=== PATIENT | female | born 1945 | race Caucasian/White ===

== ENCOUNTER 2023-09-07 13:06 | Outpatient (CLI) | payer MEDICARE, MEDICAID, SELFPAY | END 2023-09-07 13:07 | disposition home or self-care (01) | LOC: CHSAUDIO 13:08 | PROVIDERS: PCP Family Medicine; Visit Provider Otolaryngology | DX: H90.3 Sensorineural hearing loss, bilateral (principal) | CPT/HCPCS: 92557; 92567 ==

== ENCOUNTER 2024-09-19 11:04 | Outpatient (NON) | payer MEDICARE, SELFPAY ==
[2024-09-19 12:54] LABS: Alanine Aminotransferase 21 U/L (14-59); Albumin Level 3.4 g/dL (3.4-5.0); Alkaline Phosphatase 139 U/L (46-116); Anion Gap 8 mmol/L (4-12); Aspartate Amino Transferase 40 U/L (15-37); Bilirubin,Total 0.3 mg/dL (0.00-1.00); Blood Urea Nitrogen 25 mg/dL (7-18); Carbon Dioxide 30 mmol/L (21-32); Chloride 103 mmol/L (98-108); Estimated Glomerular Filt Rate 33; Glucose 145 mg/dL (70-99); Osmolality Calculated 299 mOsm/kg (285-295); Potassium 4.2 mmol/L (3.5-5.1); Sodium 141 mmol/L (136-145); Total Protein 6.8 g/dL (6.4-8.2)
[2024-09-19 12:56] LABS: Basophils Percent Auto 1.5 % (0.0-1.0); Eosinophils Absolute Auto 0.33 K/mm3 (0.02-0.50); Eosinophils Percent Auto 4.9 % (1.0-6.0); Hematocrit 32.7 % (35.0-42.0); Hemoglobin 9.7 g/dL (11.7-13.8); Immature Granulocyte Absolute 0.04 K/mm3 (0.00-0.00); Immature Granulocyte Percent A 0.6 % (0.0-0.0); Lymphocytes Absolute Auto 1.04 K/mm3 (1.10-4.50); Lymphocytes Percent Auto 15.4 % (18.0-42.0); Mean Corpuscular HGB Conc 29.7 g/dL (32-36); Mean Corpuscular Volume 84.3 fL (78.0-102.0); Mean Platelet Volume 12.1 fl (9.2-11.8); Monocytes Absolute Auto 0.59 K/mm3 (0.10-0.90); Monocytes Percent Auto 8.8 % (2.0-11.0); Neutrophils Absolute Auto 4.64 K/mm3 (1.70-7.20); Neutrophils Percent Auto 68.8 % (50.0-70.0); Platelet Count Result 304 K/mm3 (150-420); Red Blood Count 3.88 M/mm3 (4.20-5.40); Red Cell Distribution Width 15.1 % (11.6-14.4); White Blood Count 6.7 K/mm3 (4.8-10.8)
== END 2024-09-19 11:05 | disposition home or self-care (01) ==
LOC: CHSLAB 11:10
PROVIDERS: PCP Family Medicine; Visit Provider Family Medicine
DX: D64.9 Anemia, unspecified (principal); I50.9 Heart failure, unspecified; E11.9 Type 2 diabetes mellitus without complications
CPT/HCPCS: 80053; 85025

== ENCOUNTER 2024-10-04 11:14 | Outpatient (NON) | payer MEDICARE, SELFPAY ==
[2024-10-04 11:37] LABS: Basophils Absolute Auto 0.09 K/mm3 (0.00-0.10); Basophils Percent Auto 1.3 % (0.0-1.0); Eosinophils Absolute Auto 0.25 K/mm3 (0.02-0.50); Eosinophils Percent Auto 3.5 % (1.0-6.0); Hematocrit 32.9 % (35.0-42.0); Hemoglobin 9.9 g/dL (11.7-13.8); Immature Granulocyte Absolute 0.03 K/mm3 (0.00-0.00); Immature Granulocyte Percent A 0.4 % (0.0-0.0); Lymphocytes Absolute Auto 1.19 K/mm3 (1.10-4.50); Lymphocytes Percent Auto 16.7 % (18.0-42.0); Mean Corpuscular HGB Conc 30.1 g/dL (32-36); Mean Corpuscular Hemoglobin 24.3 pg (27.0-31.0); Mean Corpuscular Volume 80.8 fL (78.0-102.0); Mean Platelet Volume 11.8 fl (9.2-11.8); Monocytes Percent Auto 9.8 % (2.0-11.0); Neutrophils Absolute Auto 4.86 K/mm3 (1.70-7.20); Neutrophils Percent Auto 68.3 % (50.0-70.0); Platelet Count Result 313 K/mm3 (150-420); Red Blood Count 4.07 M/mm3 (4.20-5.40); Red Cell Distribution Width 14.9 % (11.6-14.4); White Blood Count 7.1 K/mm3 (4.8-10.8)
== END 2024-10-04 11:15 | disposition home or self-care (01) ==
LOC: CHSLAB 11:18
PROVIDERS: PCP Family Medicine; Visit Provider Family Medicine
DX: D64.9 Anemia, unspecified (principal)
CPT/HCPCS: 36415; 85025

== ENCOUNTER 2024-10-21 16:19 | Outpatient (NON) | payer MEDICARE, SELFPAY ==
[2024-10-21 16:35] LABS: Basophils Absolute Auto 0.08 K/mm3 (0.00-0.10); Basophils Percent Auto 1.3 % (0.0-1.0); Eosinophils Absolute Auto 0.26 K/mm3 (0.02-0.50); Eosinophils Percent Auto 4.2 % (1.0-6.0); Hematocrit 34.5 % (35.0-42.0); Hemoglobin 9.9 g/dL (11.7-13.8); Immature Granulocyte Absolute 0.05 K/mm3 (0.00-0.00); Immature Granulocyte Percent A 0.8 % (0.0-0.0); Lymphocytes Absolute Auto 0.85 K/mm3 (1.10-4.50); Lymphocytes Percent Auto 13.7 % (18.0-42.0); Mean Corpuscular HGB Conc 28.7 g/dL (32-36); Mean Corpuscular Hemoglobin 23.8 pg (27.0-31.0); Mean Corpuscular Volume 82.9 fL (78.0-102.0); Mean Platelet Volume 12.6 fl (9.2-11.8); Monocytes Absolute Auto 0.54 K/mm3 (0.10-0.90); Monocytes Percent Auto 8.7 % (2.0-11.0); Neutrophils Absolute Auto 4.43 K/mm3 (1.70-7.20); Neutrophils Percent Auto 71.3 % (50.0-70.0); Platelet Count Result 280 K/mm3 (150-420); Red Blood Count 4.16 M/mm3 (4.20-5.40); Red Cell Distribution Width 15.7 % (11.6-14.4); White Blood Count 6.2 K/mm3 (4.8-10.8)
== END 2024-10-21 16:20 | disposition home or self-care (01) ==
LOC: CHSLAB 16:21
PROVIDERS: PCP Family Medicine; Visit Provider Family Medicine
DX: D64.9 Anemia, unspecified (principal)
CPT/HCPCS: 85025

== ENCOUNTER 2024-12-19 14:22 | Outpatient (NON) | payer MEDICARE, SELFPAY ==
[2024-12-19 14:29] LABS: Basophils Absolute Auto 0.07 K/mm3 (0.00-0.10); Eosinophils Absolute Auto 0.08 K/mm3 (0.02-0.50); Eosinophils Percent Auto 1.2 % (1.0-6.0); Hematocrit 24.3 % (35.0-42.0); Immature Granulocyte Absolute 0.04 K/mm3 (0.00-0.00); Immature Granulocyte Percent A 0.6 % (0.0-0.0); Lymphocytes Absolute Auto 0.75 K/mm3 (1.10-4.50); Mean Corpuscular HGB Conc 27.2 g/dL (32-36); Mean Corpuscular Hemoglobin 22.3 pg (27.0-31.0); Mean Corpuscular Volume 82.1 fL (78.0-102.0); Mean Platelet Volume 11.8 fl (9.2-11.8); Monocytes Absolute Auto 0.58 K/mm3 (0.10-0.90); Monocytes Percent Auto 8.5 % (2.0-11.0); Neutrophils Absolute Auto 5.31 K/mm3 (1.70-7.20); Neutrophils Percent Auto 77.7 % (50.0-70.0); Nucleated Red Blood Cells Absolute Auto 0.02 K/mm3 (0.00-0.00); Nucleated Red Blood Cells Perc 0.3 % (0-0.0); Platelet Count Result 291 K/mm3 (150-420); Red Blood Count 2.96 M/mm3 (4.20-5.40); Red Cell Distribution Width 16.1 % (11.6-14.4); White Blood Count 6.8 K/mm3 (4.8-10.8)
[2024-12-19 14:33] LABS: Hemoglobin 6.6 g/dL (11.7-13.8)
[2024-12-19 14:49] LABS: Hemoglobin A1C 8.1 % (<5.7)
[2024-12-19 15:02] LABS: Thyroid Stimulating Hormone 4.39 uIU/mL (0.36-3.74)
== END 2024-12-19 14:23 | disposition home or self-care (01) ==
LOC: CHSLAB 14:24
PROVIDERS: PCP Family Medicine; Visit Provider Family Medicine
DX: D64.9 Anemia, unspecified (principal); E11.9 Type 2 diabetes mellitus without complications; E03.9 Hypothyroidism, unspecified
CPT/HCPCS: 36415; 83036; 84443; 85025

== ENCOUNTER 2024-12-26 12:13 | Outpatient (NON) | payer MEDICARE, SELFPAY ==
[2024-12-26 12:22] LABS: Basophils Absolute Auto 0.07 K/mm3 (0.00-0.10); Basophils Percent Auto 1.1 % (0.0-1.0); Eosinophils Absolute Auto 0.21 K/mm3 (0.02-0.50); Eosinophils Percent Auto 3.2 % (1.0-6.0); Hemoglobin 9.4 g/dL (11.7-13.8); Immature Granulocyte Absolute 0.04 K/mm3 (0.00-0.00); Immature Granulocyte Percent A 0.6 % (0.0-0.0); Lymphocytes Absolute Auto 0.92 K/mm3 (1.10-4.50); Lymphocytes Percent Auto 13.8 % (18.0-42.0); Mean Corpuscular HGB Conc 27.6 g/dL (32-36); Mean Corpuscular Hemoglobin 23.7 pg (27.0-31.0); Mean Corpuscular Volume 85.6 fL (78.0-102.0); Mean Platelet Volume 11.2 fl (9.2-11.8); Monocytes Absolute Auto 0.59 K/mm3 (0.10-0.90); Monocytes Percent Auto 8.9 % (2.0-11.0); Neutrophils Absolute Auto 4.83 K/mm3 (1.70-7.20); Neutrophils Percent Auto 72.4 % (50.0-70.0); Platelet Count Result 281 K/mm3 (150-420); Red Blood Count 3.97 M/mm3 (4.20-5.40); White Blood Count 6.7 K/mm3 (4.8-10.8)
[2024-12-26 12:48] LABS: Ferritin 91 ng/mL (8-252); Iron 29 ug/dL (50-170); Percent Iron Saturation 6 % (12-57)
[2024-12-27 12:45] LABS: Anion Gap 12 mmol/L (4-12); Blood Urea Nitrogen 24 mg/dL (7-18); Calcium 8.9 mg/dL (8.5-10.1); Carbon Dioxide 27 mmol/L (21-32); Chloride 105 mmol/L (98-108); Estimated Glomerular Filt Rate 31; Glucose 176 mg/dL (70-99); Osmolality Calculated 306 mOsm/kg (285-295); Potassium 4.1 mmol/L (3.5-5.1); Sodium 144 mmol/L (136-145)
== END 2024-12-26 12:14 | disposition home or self-care (01) ==
LOC: CHSLAB 12:15
PROVIDERS: PCP Family Medicine; Visit Provider Family Medicine
DX: D64.9 Anemia, unspecified (principal)
CPT/HCPCS: 36415; 80048; 82728; 83540; 83550; 85025

== ENCOUNTER 2025-01-04 12:48 | Outpatient (NON) | payer MEDICARE, SELFPAY ==
[2025-01-04 12:55] LABS: Basophils Percent Auto 1.8 % (0.0-1.0); Eosinophils Percent Auto 1.8 % (1.0-6.0); Hematocrit 34.5 % (35.0-42.0); Hemoglobin 9.7 g/dL (11.7-13.8); Immature Granulocyte Absolute 0.01 K/mm3 (0.00-0.00); Immature Granulocyte Percent A 0.2 % (0.0-0.0); Lymphocytes Percent Auto 14.4 % (18.0-42.0); Mean Corpuscular HGB Conc 28.1 g/dL (32-36); Mean Corpuscular Hemoglobin 24.3 pg (27.0-31.0); Mean Corpuscular Volume 86.5 fL (78.0-102.0); Mean Platelet Volume 11.9 fl (9.2-11.8); Monocytes Absolute Auto 0.52 K/mm3 (0.10-0.90); Monocytes Percent Auto 9.4 % (2.0-11.0); Neutrophils Absolute Auto 4.01 K/mm3 (1.70-7.20); Neutrophils Percent Auto 72.4 % (50.0-70.0); Platelet Count Result 282 K/mm3 (150-420); Red Blood Count 3.99 M/mm3 (4.20-5.40); Red Cell Distribution Width 18.8 % (11.6-14.4); White Blood Count 5.5 K/mm3 (4.8-10.8)
--- OUTSIDE RECORDS SUMMARY | 2025-01-04 14:14 | XMS_ITS | Encounter Summary ---
Author Organization [facility] [employer] [facility] Address [address] [place] [address] Phone Care Team Providers Care Sales And Marketing Assistant Name Role Phone Hema Castaneda MD Unavailable [phone] Colleen Bain MD Unavailable [phone] Rosette Espinoza MD Unavailable [phone] Lopez Pool MD Primary Care Provider [phone] Jacqueline Schaeffer RN Unavailable Unavailable Jenni Hartley RN Unavailable Unavailable Anat Hutchison Unavailable Unavailable Encounter Details Date Type Department Care Team (Latest Contact Info) Description 12/09/2022 Orders Only [facility] Scanning, Provider Social History Tobacco Use Types Packs/Day Years Used Date Smoking Tobacco: Former Cigarettes Q uit: 2006 Smokeless Tobacco: Never Alcohol Use Standard Drinks/Week Comments No 0 (1 standard drink = 0.6 oz pur e alcohol) minimal Social Connection and Isolat ion Panel [NHANES] Answer Date Recorded In a typical week, how many times do you talk on the phone with family, friends, or neighbors? More than three times a week 03/14/2022 How often do you get togethe r with friends or relatives? More than three times a week 03/14/2022 How often do you attend chur ch or adventist services? Never 03/14/2022 Do you belong to any clubs o r organizations such as shinto groups, unions, fraternal or athletic groups, or school groups? No 03/14/2022 How often do you attend meet ings of the clubs or organizations you belong to? Never 03/14/2022 Are you , , di vorced, , never , or living with a partner? 03/14/2022 AUDIT-C Answer Date Recorded Q1: How often do you have a drink containing alcohol? Never 03/18/2022 Q2: How many drinks containi ng alcohol do you have on a typical day when you are drinking? Patient does not drink Q3: How often do you have si x or more drinks on one occasion? Never 03/18/2022 Overall Financial Resource Strain (CARDIA) Answe r Date Recorded How hard is it for you to pa y for the very basics like food, housing, medical care, and heating? Not very hard 03/14/2022 PHQ-2 Answer Date Recorded PHQ-2 Total Score 1 03/14/2022 Hunger Vital Sign Answer Date Recorded Within the past 12 months, y ou worried that your food would run out before you got the money to buy more. Never true 03/14/20 Within the past 12 months, t he food you bought just didn't last and you didn't have money to get more. Never true 03/14/2022 PRAPARE - Transportation Answer Date Re corded In the past 12 months, has l ack of transportation kept you from medical appointments or from getting medications? No 02/17 In the past 12 months, has l ack of transportation kept you from meetings, work, or from getting things needed for daily living? No 03/14/2022 Housing Stability Vital Sign Answer Sebas e Recorded In the last 12 months, was t here a time when you were not able to pay the mortgage or rent on time? No 03/14/2022 In the last 12 months, how many places have you lived? 1 03/14/2022 In the last 12 months, was t here a time when you did not have a steady place to sleep or slept in a half-way (including now)? 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 Not on file Not on file Not on file documented as of this encounter Plan of Treatment Upcoming Encounters Date Type Department Care Team (Latest Contact Info) Description 02/10/2025 7:30 AM CDT Hospital Encounter [facility] [address] [place] [address] Fred SullivanInstitutional Research Coordinator, [address] [place] [phone] Patricia Smith MD [address] [place] [address] [place] [address] [phone] Atrial fibrillation, unspecified type (HCC) 02/10/2025 7:30 AM CDT - 02/10/2025 8:05 AM CDT Surgery [facility] [address] [phone] Patricia Smith MD [address] [place] [address] [place] [address] [phone] CARDIOVERSION documented as of this encounter Procedures Procedure Name Priority Date/Time Associated Diagnosis Comments PULMONARY - RESULT SCAN 12/09/2022 documented in this encounter Results * PULMONARY - RESULT SCAN (12/09/2022) Anatomical Region Laterality Modality Other us Provider Scanning Final Result documented in this encounter Visit Diagnoses Not on filedocumented in this encounter Care Teams Sales And Marketing Assistant Relationship Specialty Start Date End Date Lopez Pool MD PCP - General Family Medicine 03/18/22 Hema Castaneda MD Consulting Physician Cardiology 01/11/19 Colleen Bain MD Referring Physician Endocrinology Diabetes & Metabolism 04/07/19 Rosette Espinoza MD Referring Physician Cardiology 04/07/19 Jacqueline Schaeffer, finisher hot strip Failure Coordinator Cardiology 07/13/24 Jenni Hartley, RN Registered Nurse 07/13/24 08/01/24 Anat Hutchison 07/13/24 documented as of this encounter
--- OUTSIDE RECORDS SUMMARY | 2025-01-04 14:14 | XMS_ITS | Referral Summary ---
Author Organization [facility] Address [address] [place] [address] Care Team Providers Care Bonderizer Name Role Phone Hema Castaneda MD Unavailable Colleen Bain MD Unavailable [phone] Дмитрий Torres MD Unavailable [phone] Lopez Pool MD Primary Care Provider [phone] Jacqueline Schaeffer RN Unavailable Unavailable Anat Hutchison Unavailable Unavailable Encounters Date Type Department Care Team Description 12/21/2024 Telephone [facility] [address] [facility] 8th [place] [address] [place] [address] Дмитрий Torres MD appt 12/21/2024 Telephone [facility] [address] [facility] 8th [place] [address] [place] [address] Дмитрий Torres MD 12/21/2024 Telephone [facility] [address] [facility] 8th [place] [address] [place] [phone] Дмитрий Torres MD 12/21/2024 Telephone [facility] [address] [facility] [address] [phone] [place] [address] Kiko Omalley 12/19/2024 Orders Only [facility] [address] [facility] [address] [place] [address] Дмитрий Torres MD 12/19/2024 Telephone [facility] [address] [place] [address] [address] [place] [phone] [place] [address] Kiko Omalley 12/19/2024 Orders Only [facility] [address] [place] [address] [place], [place] [address]op -[address] [place] [address] Jacqueline Schaeffer RN Chronic diastolic congestive heart failure (HCC) (Primary Dx) 12/16/2024 Anticoagulation Telephone Call [facility] [address] [place] [address] [place] [address] Jacqueline Schaeffer RN Atrial fibrillation, unspecified type (HCC) (Primary Dx); 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 12/16/2024 Telephone [facility] [address] [facility] 8th [place] [address] [place] [address] Vijay Wheeler 12/16/2024 Telephone [facility] [address] [place] [address] [address] [facility] [place] [address] [place] [address] Jacqueline Schaeffer RN 12/16/2024 Orders Only [facility] [address] [place] [address] [place] [address] Deanne Peralta RN 12/16/2024 Results Follow-Up [facility] [address] [facility] [address] [place] [address] Дмитрий Torres MD 12/16/2024 6:50 AM TRY ON BASTER - 12/16/2024 11:59 PM TRY ON BASTER Hospital Encounter [facility] [address] [facility] 8th [place] [phone] Atrial flutter, unspecified type (HCC) Discharge Disposition: Discharge to home or self care 12/14/2024 Telephone [facility] [address] [facility] [address] 62-49-615 [place] [address] Jacqueline Schaeffer RN 12/12/2024 Telephone [facility] [address] [facility] [address] [phone] [place] [address] Alison Nye 12/12/2024 Telephone [facility] [address] [facility] 8th [place] [address] [place] [address] Дмитрий Torres MD 12/09/2024 Anticoagulation Telephone Call [facility] [address] [facility] [address] 32-04-022 [place] [address] Jenni Hartley RN Atrial fibrillation, unspecified type (HCC) (Primary Dx); [facility] current use of anticoagulant therapy 12/07/2024 Telephone [facility] [address] [facility] 8th [place] [address] [place] [address] Nanette Bingham 12/06/2024 10:12 AM TRY ON BASTER - 12/06/2024 11:59 PM TRY ON BASTER Hospital Encounter [facility] [address] [place] [address] SOB (shortness of breath) Discharge Disposition: Discharge to home or self care 12/06/2024 10:00 AM TRY ON BASTER Office Visit [facility] [address] [facility] 8th [place] [address] [place] [address] Kiesha Varela MD SOB (shortness of breath) (Primary Dx); Chronic obstructive pulmonary disease, unspecified COPD type (HCC) 12/06/2024 8:54 AM TRY ON BASTER - 12/06/2024 11:59 PM TRY ON BASTER Hospital Encounter [facility] [address] [facility] [address] [place] [phone] Chronic obstructive pulmonary disease, unspecified COPD type (HCC) Discharge Disposition: Discharge to home or self care 12/02/2024 Telephone [facility] [address] [place] [address] [address] [phone] [place] [address] Kathryn Novak 12/02/[address] [facility] [address] [place] [address] [address] [phone] [place] [address] Jenni Hartley RN Atrial fibrillation, unspecified type (HCC) (Primary Dx); [facility] current use of anticoagulant therapy 12/02/2024 8:45 AM TRY ON BASTER Office Visit [facility] [address] [place] [address] 8th [place] [address] [place] [address] Дмитрий Torres MD Atrial flutter, unspecified type (HCC) (Primary Dx); Pacemaker 12/02/2024 8:15 AM TRY ON BASTER Ancillary Procedure [facility] [address] [place] [address] 8th [place] [address] [place] [phone] Sinus bradycardia (Primary Dx); Fitting or adjustment of cardiac pacemaker; Atrial fibrillation, unspecified type (HCC); Atrial flutter, unspecified type (HCC); Cardiomyopathy, idiopathic (HCC) 11/14/[address] 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 Active calcium carbonate-vitamin D3 1500 mg (600 mg elemental) -200 units per tablet daily. Act diana ferrous sulfate 325 mg (65 mg of elemental iron) tabletIndications: Iron Deficiency Anemia 2 times daily. Activ e oxygenIndications: Dyspnea Administer 2 L/min into each nostril nightly Active triamcinolone (KENALOG) 0.1 % cream 10/02/20 21 Active albuterol HFA (ProAir HFA) 90 mcg/actuation inhaler Inhale 2 puffs every 4 (four) hours as needed for wheezing 8.5 g 03/05/20 22 Active sertraline (ZOLOFT) 100 mg tablet Take 1 tablet (100 mg total) by mouth daily HALF TABLET FOR THE FIRST 6 DAYS 30 tablet 03/05/20 22 Active cholecalciferol (VITAMIN D-3) 2000 unit tablet Take 0.5 tablets (1,000 Units total) by mouth daily 02/21/20 22 Active magnesium oxide 400 mg magnesium capsule Take 2 tablets by mouth daily 02/18/20 22 Active lancets [facility] Use lancet to check blood sugar 3 x a day : DX: E11.65, Type 2 DM requiring insulin 100 each 3 03/24/20 22 Active nystatin powder 09/25/20 22 Active pen needle, diabetic (TRUEplus Pen Needle) 32 gauge x needle Use with insulin injections twice daily 200 each 3 06/01/20 23 Active glucagon (Gvoke HypoPen 2-Pack) 1 mg/0.2 mL auto-injector Use as needed for treatment of hypoglycemia 0.4 mL 3 07/29/20 23 Active Trelegy Ellipta 200-62.5-25 mcg inhaler Inhale 1 puff daily 09/09/20 23 Active levothyroxine (SYNTHROID) 137 mcg tablet Take 1 tablet (137 mcg total) by mouth carousel attendant before breakfast 08/20/[address] (PROTONIX) 40 mg EC tablet Take 1 tablet (40 mg total) by mouth daily 05/13/20 24 Active metFORMIN (GLUCOPHAGE) 500 mg tablet Take 1 tablet (500 mg total) by mouth 2 (two) times a day with meals 04/26/20 24 Active BASAGLAR 100 unit/mL (3 mL) pen for injection every evening 55 units once a day 05/13/20 24 Active fluticasone propionate (FLONASE) 50 mcg/actuation nasal spray 05/23/20 24 Active cetirizine (ZyrTEC) 10 mg tablet Take 1 tablet (10 mg total) by mouth daily Active warfarin (COUMADIN) 2 mg tablet TRANSFERRED: 04/17/23 -READ RX NOTE (ALT-N)- TAKE 3 AND 1/2 TABLETS BY MOUTH 315 tablet 3 08/08/20 24 Active spironolactone (ALDACTONE) 25 mg tablet TAKE ONE TABLET BY MOUTH DAILY 90 tablet 3 08/19/20 24 Active furosemide (LASIX) 40 mg tablet TAKE ONE TABLET BY MOUTH DAILY 90 tablet 3 10/14/20 24 Active blood glucose diagnostic (Contour Next Test Strips) stripIndications:U ncontrolled type 2 diabetes mellitus with hyperglycemia (HCC) TEST 3 TIMES DAILY BACKUP FOR THE DEXCOM CGM (E11.65) 300 each 11/18/19 25 Active amiodarone (PACERONE) 200 mg tablet TAKE 1 TABLET (200 MG TOTAL) BY MOUTH DAILY *NEEDS EKG AND LABS (TO CHECK LIVER ENZYMES AND THYROID) EVERY 6 MONTHS PRIOR TO 30 tablet 11/25/19 25 Active sucralfate (CARAFATE) 1 gram tablet Take 1 tablet (1 g total) by mouth 4 (four) times a day 11/25/19 25 Active ondansetron ODT (ZOFRAN-ODT) 4 mg disintegrating tablet Take 1 tablet (4 mg total) by mouth every 8 (eight) hours as needed for nausea 10/21/19 25 Active traMADoL (ULTRAM) 50 mg tablet Take 1 tablet (50 mg total) by mouth every 6 (six) hours as needed 09/19/20 24 Active Active Problems Problem Noted Date Diagnosed Date [facility] current use of amiodarone 07/22/2024 Acquired hypothyroidism 12/08/2022 Assessment & Plan (10/01/2023 7:53 PM TRY ON BASTER): Symptomatically euthyroid but recent TSH elevated. Has scheduled repeat FT4 and TSH per Dr. Torres. Assessment & Plan (06/15/2023 3:54 PM CDT): -Labs on 05/29/2023 showed TSH of 16.9 -Levothyroxine dose was increased to 100 mcg daily Assessment & Plan (03/09/2023 8:23 AM CDT): -Labs dated 10/03/22: FT4 was 0.49, TSH 45.59 -Levothyroxine 75 mcg daily was prescribed Assessment & Plan (12/09/2022 9:54 AM TRY ON BASTER): -Labs dated 10/03/22: FT4 was 0.49, TSH 45.59 -Levothyroxine 75 mcg daily was prescribed -She has orders for repeat labs per PCP Adjustment and management of cardiac pacemaker 0 05/01/2022 Acute on chronic hypoxemic respiratory failure 0 03/04/2022 Assessment & Plan (03/05/2022 4:47 PM CDT): #Influenza A Patient presented to OSH for dyspnea, increased oxygen req to 6L (home 2L at night, 1L during day). RVP 02/22 remarkable for Influenza A. CXR at OSH read as bibasilar ground glass opacities thought to be atelectasis vs infiltrates. Treated as PNA, given vanc and zosyn for at least 3 days. Blood cx's neg x 2, 1 staph epi. Also seems to be some concern for HF exacerbation as she was also given lasix 20 IV, increased to 40 IV. Most likely symptoms in setting of influenza infection. Low suspicion for HF exacerbation as weight below baseline, and appears dry on exam. Low suspicion for COPD exacerbation. - cont supportive care with tesjonatan victoria - pt is outside the window for tamiflu - remains on 2LO2, plan for home O2 eval prior to dc MARI on CKD 03/02/2022 Assessment & Plan (03/04/2022 5:49 PM CDT): Presented to OSH with Cr 1.07, max on 02/25 with Cr 3.61 (BUN 30). Cr b/l 1.1 - 1.2. C/f intrarenal vs prerenal iso supratheraputic vanc for several days and several days of IV lasix. OSH CT abd/pel urogram with bilateral renal cysts, no metastatic disease. US retroperitoneal with r kidney 11.6 x 6.9x 5.4, normal echogenicity, no hydronephrosis, L kidney 12.2 x 6.3x 5.1 with normal cortical echogenicity, bilateral simple renal cysts. UA bland. S/p 1500 mL gentle IVF on admission - strict I/Os q4 - renally dose medications, avoid nephrotoxins, holding home lisinopril - Cr remains stable, pt with good UOP - Encourage PO intake Nocturnal hypoxemia 04/30/2021 Assessment & Plan (03/04/2022 5:52 PM CDT): Previously on CPAP, but no evidence of NATI on last PSG in 2018. Follows with Dr. Varela - on 2L NC at night baseline NATI (obstructive sleep apnea) 11/02/2020 Assessment & Plan (03/17/2022 10:47 AM CDT): -follows with Pulm Dr. Varela -as per Pulm notes on 04/30/2021: Previously on CPAP; no evidence of NATI on last PSG in 2018. -patient continues with nocturnal desats -Daughter would like Ambulatory referral for Sleep Medicine at discharge, thinks her study needs to be repeated. Assessment & Plan (03/16/2022 8:24 AM CDT): -follows with Pulm Dr. Varela -as per Pulm notes on 04/30/2021: Previously on CPAP; no evidence of NATI on last PSG in 2018. -patient continues with nocturnal desats -Daughter would like Ambulatory referral for Sleep Medicine at discharge, thinks her study needs to be repeated. Assessment & Plan (03/15/2022 12:37 PM CDT): -follows with Pulm Dr. Varela -as per Pulm notes on 04/30/2021: Previously on CPAP; no evidence of NATI on last PSG in 2018. -patient continues with nocturnal desats -Daughter would like Ambulatory referral for Sleep Medicine at discharge, thinks her study needs to be repeated. Type 2 diabetes mellitus with other specified co mplication 12/19/2019 Assessment & Plan (10/01/2023 7:56 PM TRY ON BASTER): Glucoses high but needs reliable test strips. Also awaiting Dexcom G6 supplies. For now, will increase insulin dosing within a good margin of safety. Assessment & Plan (06/16/2023 2:49 PM CDT): -Currently prescribed insulin -metformin has been discontinued due to deterioration of renal function -Dexcom download indicates hyperglycemia. Will increase 70/30 insulin to 18 units twice a day. She is to call with any lows. Will follow with her response. -Advised to call if blood sugars are persistently greater than 200 mg/dl. -Discussed diet and activity modifications. -Advised to call with any concerns/complaints regarding glucose readings -Eye exam is up to date -Following with podiatry Assessment & Plan (03/10/2023 9:05 AM CDT): -Currently prescribed insulin -metformin has been discontinued due to deterioration of renal function -A1C on 12/09/22 was 7.1% -Dexcom download indicates time in range 42%. 90 day GMI is 7.8%. Given her other health issues and advanced age, tight control is not indicated. She is most comfortable with blood sugars between 160-200 mg/dl, and I agree with this. For now, will continue same insulin doses Advised to call if blood sugars are persistently greater than 200 mg/dl. -Discussed diet and activity modifications. -Advised to call with any concerns/complaints regarding glucose readings -Eye exam is up to date -Following with podiatry Assessment & Plan (12/09/2022 9:54 AM TRY ON BASTER): -Currently prescribed insulin -metformin has been discontinued due to deterioration of renal function -A1C on 12/09/22 was 7.1% -Dexcom download indicates some post-meal variability, but relatively stable glucose pattern. Will continue same insulin dosing for now. -Discussed diet and activity modifications. -Advised to call with any concerns/complaints regarding glucose readings -Eye exam is up to date -Following with podiatry Assessment & Plan (07/16/2022 11:34 AM CDT): -Currently prescribed insulin -metformin has been discontinued due to deterioration of renal function -A1C on 06/24/22 was 7.6% -Dexcom download indicates a persistent pattern of hyperglycemia. Will increase 70/30 insulin to 15 units bid. Will continue Reli On Regular correction scale of 1:50>200 at lunch. This is a total of 3 injections daily. Will message in one week to review Dexcom data and will adjust insulin from there. (Addendum per KWAME Rogel on 07/16/22) -Discussed diet and activity modifications. -Advised to call with any concerns/complaints regarding glucose readings -Eye exam is up to date -Following with podiatry Assessment & Plan (03/24/2022 4:41 PM CDT): -Currently prescribed insulin -metformin has been discontinued due to deterioration of renal function -A1C on 03/02/22 was 9.1% -this A1c was taken during hospitalization after receiving high-dose steroids. -Dexcom download indicates a relatively flat glucose pattern overnight. She has a rise in glucose after she eats her 1st meal of the day, around 10:00 a.m. and returning to baseline at approximately 2:00 p.m... She has another spike in glucose after she eats her 2nd meal of the day around 3:00 p.m. and her glucose remains elevated. For now, will increase her morning dose of Novolin 70/30 insulin from 20-22 units, and continue 20 units in the p.m. to prevent any nocturnal hypoglycemia. Anticipate better mealtime coverage when she transitions to NovoLog 70/30 insulin. She is to message me in 1-2 weeks to re-evaluate her Dexcom data and will make further adjustments at that time if indicated. -prescription sent for back see me -Discussed diet and activity modifications. -Advised to call with any concerns/complaints regarding glucose readings -Eye exam is up to date -Following with podiatry Assessment & Plan (11/15/2021 11:27 AM TRY ON BASTER): -Currently prescribed insulin and metformin -A1C recently was 6.1% per patient -She had recent lows, and stopped her insulin altogether -Will resume Reli On Novolin 70/30 insulin at 30 units bid (half of previous dose) and follow with her response. -Given her hypoglycemia unawareness, and that she meets medicare criteria, will order Daniela 2. -Discussed diet and activity modifications. -Advised to call with any concerns/complaints regarding glucose readings -Eye exam is up to date -Following with podiatry Mixed hyperlipidemia 12/19/2019 Assessment & Plan (10/01/2023 7:54 PM TRY ON BASTER): Continue statin, optimize glycemic control. Assessment & Plan (06/15/2023 3:56 PM CDT): -Lipid panel on 03/03/22: TC 108, trig 222, HDL 31, LD 33 -Will continue statin as it is being tolerated without side effects Assessment & Plan (03/09/2023 8:23 AM CDT): -Lipid panel on 03/03/22: TC 108, trig 222, HDL 31, LD 33 -Will continue statin as it is being tolerated without side effects Assessment & Plan (12/08/2022 8:55 AM TRY ON BASTER): -Lipid panel on 03/03/22: TC 108, trig 222, HDL 31, LD 33 -Will continue statin as it is being tolerated without side effects Assessment & Plan (06/22/2022 1:24 PM CDT): -Will continue statin as it is being tolerated without side effects Assessment & Plan (03/20/2022 4:04 PM CDT): -Will continue statin as it is being tolerated without side effects Assessment & Plan (11/15/2021 11:23 AM TRY ON BASTER): -Will continue statin as it is being tolerated without side effects Stage 3b chronic kidney disease 03/20/2019 Assessment & Plan (10/01/2023 7:55 PM TRY ON BASTER): Need optimal glycemic control, minimize risk of hypoglycemia. Assessment & Plan (06/15/2023 3:56 PM CDT): -CKD increases risk of hypoglycemia -Will closely monitor glucose pattern in ensure margin of safety Assessment & Plan (03/09/2023 8:23 AM CDT): -CKD increases risk of hypoglycemia -Will closely monitor glucose pattern in ensure margin of safety Assessment & Plan (12/08/2022 8:56 AM TRY ON BASTER): -CKD increases risk of hypoglycemia -Will closely monitor glucose pattern in ensure margin of safety Assessment & Plan (06/22/2022 1:26 PM CDT): -CKD increases risk of hypoglycemia -Will closely monitor glucose pattern in ensure margin of safety Assessment & Plan (03/24/2022 4:41 PM CDT): -CKD increases risk of hypoglycemia -Will closely monitor glucose pattern in ensure margin of safety Assessment & Plan (03/17/2022 10:47 AM CDT): Cr on admission 2.24, down from earlier this month were Cr was in the 3s. Her baseline has been around 1.2 - received lasix in the ED. - repeat BMP with Cr ~2.0, continue to monitor Assessment & Plan (03/16/2022 8:23 AM CDT): Cr on admission 2.24, down from earlier this month were Cr was in the 3s. Her baseline has been around 1.2 - received lasix in the ED. - repeat BMP with Cr ~2.0, continue to monitor Assessment & Plan (03/15/2022 8:32 AM CDT): Cr on admission 2.24, down from earlier this month were Cr was in the 3s. Her baseline has been around 1.2 - received lasix in the ED. - repeat BMP today to monitor. Assessment & Plan (03/14/2022 3:38 PM CDT): Cr on admission 2.24, down from earlier this month were Cr was in the 3s. Her baseline has been around 1.2 - received lasix in the ED. - repeat BMP in am to monitor. Assessment & Plan (11/11/2021 12:00 PM TRY ON BASTER): -CKD increases risk of hypoglycemia -Will closely monitor glucose pattern in ensure margin of safety -Following with nephrology Assessment & Plan (04/08/2019 7:30 AM CDT): Recent changes in her medication, but creatinine improved. It is now okay for her to restart metformin Assessment & Plan (03/20/2019 10:51 AM CDT): -continue to monitor Atrial flutter 01/21/2019 Assessment & Plan (04/08/2019 7:27 AM CDT): Recent adjustments in her medications, followed by Dr. Torres. Need to minimize risk of hypoglycemia Assessment & Plan (03/20/2019 10:49 AM CDT): Currently atrial paced and tolerating sotalol -ECG 03/19 @ 1858 QTc 444 (from 466 prior) -c/w sotalol 80 mg BID (first dose 03/18 AM) Will not increase further with eCrCL ~ 40, EKG 2 hrs post dose -c/w warfarin 6mg qd, INR goal 2-3 Pacemaker 01/21/2019 Other emphysema 01/11/2019 Second degree atrioventricular block 12/06/2018 Physical deconditioning 07/13/2018 Former cigarette smoker 07/13/2018 Class 3 severe obesity with serious comorbidity and body mass index (BMI) of 40.0 to 44.9 in adult 07/13/2018 Assessment & Plan (03/20/2019 10:50 AM CDT): Discuss nutrition Anemia 07/13/2018 Assessment & Plan (03/05/2022 4:48 PM CDT): hgb 10.9 B/l 11-12. Likely iso chronic dz Assessment & Plan (03/20/2019 10:52 AM CDT): -c/w home iron supplements Depression 07/13/2018 Assessment & Plan (03/17/2022 10:47 AM CDT): Continue Zoloft, mood stable. Assessment & Plan (03/16/2022 8:24 AM CDT): Continue Zoloft, mood stable. Assessment & Plan (03/15/2022 8:32 AM CDT): Continue Zoloft, mood stable. Assessment & Plan (03/14/2022 8:33 AM CDT): Continue Zoloft, mood stable Assessment & Plan (03/04/2022 5:53 PM CDT): - cont home zoloft Essential hypertension 07/13/2018 Assessment & Plan (06/15/2023 3:55 PM CDT): -Will continue same antihypertensive medications at this time. Assessment & Plan (03/09/2023 8:23 AM CDT): -Will continue same antihypertensive medications at this time. Assessment & Plan (12/09/2022 9:54 AM TRY ON BASTER): -BP was 128/85 -Will continue same antihypertensive medications at this time. Assessment & Plan (06/24/2022 1:32 PM CDT): -BP was 151/66 -Will continue same antihypertensive medications at this time. Assessment & Plan (03/24/2022 4:41 PM CDT): -BP was 141/71 -Will continue same antihypertensive medications at this time. Assessment & Plan (03/17/2022 10:47 AM CDT): Continue amlodipine 5mg daily. Assessment & Plan (03/16/2022 8:24 AM CDT): Continue amlodipine 5mg daily. Assessment & Plan (03/15/2022 8:32 AM CDT): Continue amlodipine 5mg daily. Assessment & Plan (03/14/2022 8:33 AM CDT): Continue amlodipine 5mg daily Assessment & Plan (03/04/2022 5:51 PM CDT): - cont home amlodpine 5, hold home lisinopril iso MARI Assessment & Plan (11/11/2021 11:59 AM TRY ON BASTER): -Will continue same antihypertensive medications at this time. Assessment & Plan (04/08/2019 7:29 AM CDT): Recent changes in medications. Defer to her Cardiology team Breast cancer ([facility]) 07/13/2018 Overview (07/13/2018): L radical mastectomy with chemo and XRT x 35 [phone]. Assessment & Plan (03/17/2022 10:47 AM CDT): Sp mastectomy - hold anastrozole inpatient, can resume on discharge. Assessment & Plan (03/16/2022 8:22 AM CDT): Sp mastectomy - hold anastrozole inpatient, can resume on discharge. Assessment & Plan (03/15/2022 8:31 AM CDT): Sp mastectomy - hold anastrozole inpatient, can resume on discharge. Assessment & Plan (03/14/2022 8:32 AM CDT): Sp mastectomy - hold anastrozole inpatient, can resume on discharge. Assessment & Plan (03/04/2022 5:54 PM CDT): Left breast CA s/p Mastectomy and chemo/rads - cont home anastrazole Assessment & Plan (03/20/2019 10:52 AM CDT): C/w home anastrozole Stroke (cerebrum) ([facility]) 07/13/2018 Overview (07/13/2018): R body weak and R facial droop, improved ASA and warfarin AFIB later Assessment & Plan (03/17/2022 10:47 AM CDT): Continue ASA, Lipitor. Cont HH at discharge. Assessment & Plan (03/16/2022 8:24 AM CDT): Continue ASA, Lipitor. Cont HH at discharge. Assessment & Plan (03/15/2022 8:32 AM CDT): Continue ASA, Lipitor. Cont HH at discharge. Assessment & Plan (03/14/2022 8:34 AM CDT): Continue ASA, Lipitor. Cont HH at discharge Assessment & Plan (03/04/2022 5:52 PM CDT): - cont home lipitor, ASA AF (atrial fibrillation) 03/24/2018 Assessment & Plan (03/04/2022 5:54 PM CDT): Currently in sinus on exam. CHADS-vasc 8. 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 Non-ischemic presumed Chronic obstructive pulmonary disease 08/28/2017 Assessment & Plan (03/17/2022 10:47 AM CDT): Continue Anoro ellipta daily - on 2L nocturnal oxygen. No oxygen needed during daytime Assessment & Plan (03/16/2022 8:23 AM CDT): Continue Anoro ellipta daily - on 2L nocturnal oxygen. No oxygen needed during daytime Assessment & Plan (03/15/2022 8:32 AM CDT): Continue Anoro ellipta daily - on 2L nocturnal oxygen. No oxygen at rest. Assessment & Plan (03/14/2022 3:38 PM CDT): Continue Anoro ellipta daily - on 2L nocturnal oxygen. No oxygen at rest. Assessment & Plan (03/05/2022 5:25 PM CDT): PFTs 04/2021 with severe obstruction. FVC 390 cc, FEV1 290cc. Follows with Dr. Varela. - home anoro, and albuterol - recently increased daytime oxygen to 1L during January hospitalization. - home O2 eval prior to discharge Assessment & Plan (03/20/2019 10:50 AM CDT): C/w home inhaler Sinus bradycardia 08/28/2017 Uncontrolled type 2 diabetes mellitus with hyper glycemia 05/23/2015 Assessment & Plan (03/17/2022 10:47 AM CDT): HbA1c 9.1 - On Novolog 70/30 20 units BID at home- not on formulary here - switched to Lantus, titrated today to 22 units nightly, 8 units lispro with meals due to persistent hyperglycemia >200 Assessment & Plan (03/16/2022 8:25 AM CDT): HbA1c 9.1 - On NOvolog 70/30 20 units BID at home- not on formulary here - switched to Lantus, titrated today to 20 units nightly, 6 units lispro with meals, continue to monitor Assessment & Plan (03/15/2022 8:32 AM CDT): HbA1c 9.1 - On NOvolog 70/30 20 units BID at home- not on formulary here - switched to Glargine 16 units nightly, 5 units lispro with meals, titrate today for elevated BG Assessment & Plan (03/14/2022 8:34 AM CDT): HbA1c 9.1 - On NOvolog 70/30 20 units BID at home- not on formulary here - switched to Glargine 16 units nightly, 5 units lispro with meals. Assessment & Plan (03/04/2022 5:49 PM CDT): Home humulin currently taking 20 units BID, home metformin 500 BID - inpatient lantus 12, lispro 4 and SSI Assessment & Plan (04/08/2019 7:28 AM CDT): Glucoses variable, but within a reasonable margin of safety so we will continue current medication. However, she needs to take some insulin when she eats, even when glucoses are little lower, in order to minimize wide swings. Assessment & Plan (03/20/2019 10:50 AM CDT): -c/w lantus 50U qHS, SSI Assessment & Plan (07/13/2018 4:02 PM CDT): Diabetes x 5 year Insulin No end organ damage known Diastolic dysfunction 02/22/2010 Chronic diastolic congestive heart failure ([facility]/ [facility]) 02/22/2010 Assessment & Plan (03/17/2022 10:47 AM CDT): Patient presented with shortness of breath, BNP elevated - sp diuresis in the ED with lasix 40mg IV x 1 - no further lasix at this time, as shortness of breath is at her baseline, lungs clear - remains stable on RA during daytime Assessment & Plan (03/16/2022 8:23 AM CDT): Patient presented with shortness of breath, BNP elevated - sp diuresis in the ED with lasix 40mg IV x 1 - no further lasix at this time, as shortness of breath is at her baseline, lungs clear - remains stable on RA during daytime Assessment & Plan (03/15/2022 8:32 AM CDT): Patient presented with shortness of breath, BNP elevated - sp diuresis in the ED with lasix 40mg IV x 1 - no further lasix at this time, as shortness of breath is at her baseline, lungs clear -stable on RA during daytime Assessment & Plan (03/14/2022 3:37 PM CDT): Patient presented with shortness of breath, BNP elevated - sp diuresis in the ED with lasix 40mg IV x 1 - no further lasix at this time, as shortness of breath is at her baseline, lungs clear -stable on RA Assessment & Plan (03/04/2022 5:52 PM CDT): Echo 01/2019 LV size is normal with mild LVH. LVEF 74%. Septal hypokinesis. RV size and function are normal. Diastolic function: normal - does not use lasix at home per daughter but has some PRN Assessment & Plan (03/20/2019 10:55 AM CDT): stable -c/w home PO lasix 40mg qd, lisinopril 40mgqd, spironolactone 25mg qd SOB (shortness of breath) Resolved Problems Problem Noted Date Diagnosed Date Resolved Date Atrial fibrillation, unspecified type 03/13/2022 10/10/2022 Assessment & Plan (03/17/2022 10:49 AM CDT): Patient with paroxysmal atrial fibrillation, presented in afib with RVR with rates in the 120s, per notes, self converted to NSR in ED. -Remains in a-flutter on telemetry, rate controlled -TSH, T4, LFTs WNL -Pt recently on sotalol, but was discontinued due to worsening creatinine, follows with Dr. Torres - continue coumadin. INR on admission 3.7, held temporarily and restarted 03/17 5 mg daily - EP consulted-plan 3 day amiodarone load, cont daily ECGs (bl QTc 488ms). Baseline PFTs pending. -D/w EP 03/17, cont amiodarone, plan for DCCV tomorrow 03/18 Assessment & Plan (03/16/2022 3:28 PM CDT): Patient with paroxysmal atrial fibrillation, presented in afib with RVR with rates in the 120s, per notes, self converted to NSR in ED. -Remains in a-flutter on telemetry, rate controlled -TSH, T4, LFTs WNL -Pt recently on sotalol, but was discontinued due to worsening creatinine, follows with Dr. Torres - continue coumadin. INR on admission 3.7, decreased coumadin dose to 5mg, INR 2.5 on 03/15 - monitor INR closely while on amiodarone-hold warfarin, once INR <2, start heparin gtt for poss DCCV on - EP consulted-plan 3 day amiodarone load, cont daily ECGs (bl QTc 488ms). Baseline PFTs pending. -D/w EP today, QTc 515ms ok, cont amiodarone Assessment & Plan (03/15/2022 12:32 PM CDT): Patient with paroxysmal atrial fibrillation, presented in afib with RVR with rates in the 120s, per notes, self converted to NSR in ED. -Now in a-flutter on telemetry, rate controlled -TSH, T4, LFTs WNL -Pt recently on sotalol, but was discontinued due to worsening creatinine, follows with Dr. Torres - continue coumadin. INR on admission 3.7, decreased coumadin dose to 5mg, today's INR pending - EP consulted-plan 3 day amiodarone load, daily ECGs (bl QTc 488ms). Baseline PFTs. Assessment & Plan (03/14/2022 3:36 PM CDT): Patient with paroxysmal atrial fibrillation, presented in afib with RVR with rates in the 120s, per notes, self converted to NSR. -In/out rapid a-fib/a-tach/a-flutter on telemetry -Pt recently on sotalol, but was discontinued due to worsening creatinine, follows with Dr. Torres - per outpatient cardiology note, if patient goes back into afib, would need to load with amiodarone - continue coumadin. INR on admission 3.7, decreased coumadin dose to 5mg - EP consult today Immunizations Immunization Administration Dates Next Due Influenza, Quadrivalent, Juanita l Culture-based MDCK, Preservative Free, Antibiotic Free, Intramuscular 07/26/2019,07/15/2018 Influenza, Quadrivalent, Spl it, Intramuscular 07/09/2017 Influenza, Trivalent, IM (MDV) 4,06/29/2013,07/27/2012,07/16 Influenza, Unspecified 07/19/2022,07/20/2017 Pneumococcal Conjugate PCV 13 07/23/2018 Pneumococcal Polysaccharide PPV23 07/21/2016, Tdap 09/24/2012 Social History Tobacco Use Types Packs/Day Years Used Date Smoking Tobacco: Former Cigarettes Q uit: 2006 Smokeless Tobacco: Never Tobacco Cessation:Counseling Given: Not Answered Alcohol Use Standard Drinks/Week Comments No 0 [...] often do you attend chur ch or hinduism services? Never 03/14/2022 Do you belong to any clubs o r organizations such as faith groups, unions, fraternal or athletic groups, or school groups? No 03/14/2022 How often do you attend meet ings of the clubs or organizations you belong to? Never 03/14/2022 Are you , , di vorced, , never , or living with a partner? 03/14/2022 AUDIT-C Answer Date Recorded Q1: How often do you have a drink containing alc ohol? Never 05/27/2024 Average Number of Drinks Not on file 024 Frequency of Binge Drinking Not on file 06/2024 Overall Financial Resource Strain (CARDIA) Answe r [...] money to buy more. Never true 03/14/20 22 Within the past 12 months, t he [...] place to sleep or slept in a senior care (including now)? No 03/14/2022 Personal Safety Answer Date Recorded Have you ever been in or are you currently in a harmful physical or emotional relationship or is someone making you feel afraid or unsafe? 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 on file Not on file Not on file Last Filed Vital Signs Vital Sign Reading Time Taken Comments Blood Pressure 131/69 12/06/2024 9:26 AM TR[facility] ON BASTER Pulse 66 12/06/2024 9:26 AM [facility] ON [facility]ER Temperature 36.3 C (97.4 F) 12/06/2024 9:26 AM [facility] ON BASTER Respiratory Rate 18 12/06/2024 9:26 AM TRY ON BASTER Oxygen Saturation 92% 12/06/2024 9:26 AM TR[facility] ON BASTER Inhaled Oxygen Concentration - - Weight 110.7 kg (244 lb) 12/06/2024 9:26 AM TR[facility] ON [facility] Height 165.1 cm (5' 5 ) 12/06/2024 9:26 AM TR[facility] ON BASTER Body Mass Index 40.6 12/06/2024 9:26 AM TRY ON BASTER Plan of Treatment Upcoming Encounters Date Type Department Care Team (Latest Contact Info) Description 02/10/2025 7:30 AM CDT Hospital Encounter [facility] [address] [place] [address] [employer], [address] [place] [address] Patricia Smith MD [address] [place], [place] [id number] Atrial fibrillation, unspecified type (HCC) 02/10/2025 7:30 AM CDT - 02/10/2025 8:05 AM CDT Surgery [facility] [address] [place] [address] Patricia Smith MD [address] [place], [place] [id number] [employer] Implanted Type Area Principal Ios Developer Device Identifier Shelf Expiration Date Model / Serial / Lot Pacemaker Pacemaker Right: Chest Procedures Procedure Name Priority Date/Time Associated Diagnosis Comments DEVICE CHECK - REMOTE Routine 12/19/2024 3:31 AM TR[facility]ER THYROID FUNCTION CASCADE Routine 12/16/2024 2:57 PM TRY ON BASTER Chronic diastolic congestive heart failure (HCC) TRANSTHORACIC ECHO (TTE) COMPLETE W DOPPLER/CF WO CONTRAST Routine 12/16/2024 7:57 AM TRY ON [facility]ER Atrial flutter, unspecified type (HCC) PROTIME-INR Routine 12/16/2024 PROTIME-INR Routine 12/09/2024 XR CHEST PA LATERAL 2 VIEWS Schedule Routine, Read Routine (OP Routine) 12/06/2024 10:18 AM TR[facility] ON [facility]ER SOB (shortness of breath) PULMONARY FUNCTION TEST (PFT) Routine 12/06/2024 9:13 AM TRY ON BASTER Chronic obstructive pulmonary disease, unspecified COPD type (HCC) ECG 12-LEAD Routine 12/02/2024 9:17 AM TRY ON BASTER Atrial flutter, unspecified type (HCC) DEVICE CHECK - IN OFFICE Routine 12/02/2024 8:05 AM TRY ON BASTER Sinus bradycardia Fitting or adjustment of cardiac pacemaker COMPREHENSIVE METABOLIC PANEL Routine 09/01/2024 9:30 AM TRY ON BASTER On amiodarone therapy HEMOGLOBIN A1C Routine 10/02/2023 Type 2 diabetes mellitus with other specified complication, with long-term current use of insulin ([facility]) LIPID PANEL Timed 03/03/2022 11:18 AM CDT DEXA APPENDICULAR BONE DENSITY Schedule Routine, Read Routine (OP Routine) 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 Chronic obstructive pulmonary disease, unspecified COPD type ([facility]) H/O inhaled steroid therapy from Last 3 Months or Most Recently Relevant to Health Maintenance Results * DEVICE CHECK - REMOTE (12/19/2024 3:31 AM TRY ON [facility]ASTER) Anatomical Region Laterality Modality Other 12/19/2024 3:31 AM TRY [facility]ER Narrative 12/29/2024 12:55 PM CDT Interpretation Summary: Battery and Leads (BL) Normal parameters noted on battery and lead(s) --- 1.5 years remaining (this is an estimate based on prior usage) Presenting Rhythm (WA) Atrial Fibrillation or Flutter Ventricular Sensing (VS) --- rate 60-100's Arrhythmic events (AE) Persistent atrial fibrillation and/or flutter Anticoagulation (AC) Patient on anticoagulant therapy Patient prescribed Warfarin (Coumadin) Transmission Information (TI) Device Summary Report Procedure Note Дмитрий Torres MD - 12/29/2024 Interpretation Summary: Battery and Leads (BL) Normal parameters noted on battery and lead(s) --- 1.5 years remaining(this is an estimate based on prior usage) Presenting Rhythm (WA) Atrial Fibrillation or Flutter Ventricular Sensing (VS) --- rate 60-100's Arrhythmic events (AE) Persistent atrial fibrillation and/or flutter Anticoagulation (AC) Patient on anticoagulant therapy Patient prescribed Warfarin (Coumadin) Transmission Information (TI) Device Summary Report Дмитрий Torres MD [facility] PROCEDURES Final Result * (ABNORMAL) Thyroid Function [place] (12/16/2024 2:57 PM TRY ON BASTER) Free T4 1.40 0.76 - 1.46 EXTERNAL LAB TSH 7.266(A) 0.358 - 3.740 uIU/mL EXTERNAL LAB Blood 12/16/2024 2:57 PM TRY ON BASTER Chanel Ponce LEGAL PROJECT MANAGER LAB BLOOD ORDERABLES Final Result EXTERNAL LAB * TRANSTHORACIC ECHO (TTE) COMPLETE W DOPPLER/CF WO CONTRAST (12/16/2024 7:57 AM TRY ON BASTER) Anatomical Region Laterality Modality Ultrasound 12/16/2024 7:05 AM TRY ON BASTER Narrative 12/16/2024 9:43 AM TRY ON BASTER [facility] [place] [address] Transthoracic Echocardiographic Report Patient Name: WALKER HILLIARD L : 1945 (79y 6m) Gender: F Study Date: 12/16/2024 07:05:11 AM Ht(Inch): 65 Wt(Lb): 244.05 BSA: 2.25 Foundry Superintendant: Thi Blankenship Location: [facility] Order Provider: ДМИТРИЙ TORRES Heart Rate: 81 BMI: 40.61 BP: 144 / 85 Quality: The study images were of technically adequate quality. Ref Provider: ДМИТРИЙ TORRES PROCEDURES: Echocardiographic Report: ([id number]) Transthoracic complete echo, 2D, spectral and tissue Doppler, color flow Doppler, M-mode. INDICATIONS: I48.92 Unspecified atrial flutter. FINDINGS: Left Ventricle: Normal left ventricular size based on volume index. Concentric LV remodeling. Normal left ventricular systolic function. The Ejection Fraction (Doshi's) is measured at 66 %. Left ventricular diastolic parameters are consistent with normal diastolic function. The average global longitudinal strain rate is borderline. Right Ventricle: Normal right ventricular size. Wire noted in the right heart. RV normal systolic function TV S'~0.15 m/s. Left Atrium: Moderately dilated left atrium. Right Atrium: The right atrium is normal in size. Mitral Valve: Normal mitral valve leaflet structure. There is mild mitral valve regurgitation. Aortic Valve: Trileaflet aortic valve. The aortic cusps are moderately thickened in appearance. Moderate aortic valve stenosis. The mean transaortic gradient is 22.01 mmHg. The aortic valve area by the continuity equation (using VTI) is 0.9 cm2. Aortic valve dimensionless index 0.37. Tricuspid Valve: The tricuspid valve demonstrates normal leaflet structure. There is mild tricuspid regurgitation. The estimated pulmonary artery systolic pressure is 51 mmHg. Estimated pulmonary artery systolic pressure is consistent with moderate pulmonary hypertension (45-60mmHg). Pulmonic Valve: The pulmonic valve demonstrates normal leaflet structure. No evidence of pulmonic regurgitation. Pericardium: Normal pericardium without evidence of pericardial effusion. Aorta: Normal aortic root. The aortic root is normal in size. The aortic root is normal in size when indexed. The ascending aorta is normal in size when indexed. IVC: IVC is normal in size. CONCLUSIONS: 1. Concentric LV remodeling. Normal left ventricular systolic function. The Ejection Fraction (Doshi's) is measured at 66 %. Left ventricular diastolic parameters are consistent with normal diastolic function. The average global longitudinal strain rate is borderline. 2. Normal right ventricular size. Wire noted in the right heart. RV normal systolic function TV S'~0.15 m/s. MEASUREMENTS: 2D/MM Value Range Doppler Value Range LVIDd 2D 4.66 cm [ 3.80 - 5.20 ] AV Peak Alcides 2.88 m/s [ 1.00 - 1.70 ] LVIDs 2D 2.46 cm [ 2.20 - 3.50 ] AV Peak PG 33.18 IVSd 2D 1.05 cm [ 0.60 - 0.90 ] AV Mean PG 22.01 mmHg LVPWd 2D 1.09 cm [ 0.60 - 0.90 ] AV VTI 70.57 cm LV Thickness Ratio 0.96 LVOT Peak Alcides 1.25 m/s [ 0.70 - 1.10 ] LV FS 2D 47.25 % [ 27.00 - 45.00 ] LVOT Peak PG 6.25 LV Mass 2D 181.25 g LVOT Mean PG 2.85 mmHg LV Mass Index 2D 80.56 g/m2 LVOT VTI 26.12 cm RWT 0.47 LVOT Diam 1.76 cm EDV Mod BP 76.35 ml [ 46.00 - 106.00 ] LEDA VTI 0.90 cm2 LV EDV Index 33.93 ml/m2 LVOT/AV VTI 0.37 - Dimensionless index (DVI) ESV Mod BP 26.37 ml [ 14.00 - 42.00 ] MV E Peak Alcides 1.39 m/s [ 0.60 - 1.30 ] EF Mod BP 66 % [ 54 - 74 ] MV A Peak Alcides 0.65 m/s [ 1.00 - 1.20 ] LA Length 2C 6.50 cm MV E/A 214.77 ratio [ 0.80 - 1.50 ] LA Length 4C 5.63 cm MV Decel Time 221.61 msec [ 104.00 - 258.00 ] LA Volume BP 106.53 ml Med E` Alcides 10.12 cm/sec [ 8.00 - 15.00 ] LA Volume Index 47.35 ml/m2 [ 16.00 - 34.00 ] Lat E` Alcides 11.29 cm/sec [ 10.00 - 15.00 ] RV Base Dimen 2D 3.3 cm [ 2.5 - 4.2 ] Average E/E` 12.98 TAPSE 1.53 cm [ 1.71 - 5.00 ] MR Peak Alcides 5.00 m/s RA Volume 54.21 ml MR Peak PG 100.00 RA Volume Index 24.09 ml/m2 RV S` 14.94 cm/sec AoR Diam 2D 3.21 cm [ 2.70 - 3.70 ] TR Peak Alcides 3.40 m/s [ 1.00 - 2.80 ] Ao Root Index 1.43 cm/m2 [ 1.00 - 2.00 ] TR Peak PG 46.2 Asc Ao Diam 2D 3.25 cm Asc Ao Index 1.44 cm/m2 - ATTESTATION: I have reviewed and interpreted the pertinent images and measurements of this study. I attest to the conclusions in the final report that is provided above. DISCLAIMER: The study images and the final report will be retained in the patient chart by the [facility] for the legally required time period. This chart constitutes the legal record of any testing performed. Electronically Signed By: Hema Aguilera M.D. 12/16/2024 9:42:53 AM [facility] Electronically Signed By: Hema Aguilera M.D. 12/16/2024 9:42:53 AM TR[facility]ER Procedure Note Hema Aguilera MD PhD - 12/16/2024 [facility] [place] [address] [place] [address] Transthoracic Echocardiographic Report Patient Name: WALKER HILLIARD L : 1945 (79y 6m) Gender: F Study Date: 12/16/2024 07:05:11 AM Ht(Inch): 65 Wt(Lb): 244.05 BSA: 2.25 Foundry Superintendant: Thi Blankenship Location: [facility] Order Provider: ДМИТРИЙ TORRES Heart Rate: 81 BMI: 40.61 BP: 144 / 85 Quality: The study images were oftechnically adequate quality. Ref Provider: ДМИТРИЙ TORRES PROCEDURES: Echocardiographic Report: ([id number]) Transthoracic complete echo, 2D,spectral and tissue Doppler, color flow Doppler, M-mode. INDICATIONS: I48.92 Unspecified atrial flutter. FINDINGS: Left Ventricle: Normal left ventricular size based on volume index.Concentric LV remodeling. Normal left ventricular systolic function. The EjectionFraction (Doshi's) is measured at 66 %. Left ventricular diastolic parameters are consistentwith normal diastolic function. The average global longitudinal strain rate isborderline. Right Ventricle: Normal right ventricular size. Wire noted in the rightheart. RV normal systolic function TV S'~0.15 m/s. Left Atrium: Moderately dilated left atrium. Right Atrium: The right atrium is normal in size. Mitral Valve: Normal mitral valve leaflet structure. There is mild mitralvalve regurgitation. Aortic Valve: Trileaflet aortic valve. The aortic cusps are moderatelythickened in appearance. Moderate aortic valve stenosis. The mean transaortic gradientis 22.01 mmHg. The aortic valve area by the continuity equation (using VTI) is 0.9 cm2.Aortic valve dimensionless index 0.37. Tricuspid Valve: The tricuspid valve demonstrates normal leafletstructure. There is mild tricuspid regurgitation. The estimated pulmonary artery systolic pressureis 51 mmHg. Estimated pulmonary artery systolic pressure is consistent with moderatepulmonary hypertension (45-60mmHg). Pulmonic Valve: The pulmonic valve demonstrates normal leaflet structure.No evidence of pulmonic regurgitation. Pericardium: Normal pericardium without evidence of pericardialeffusion. Aorta: Normal aortic root. The aortic root is normal in size. The aorticroot is normal in size when indexed. The ascending aorta is normal in size whenindexed. IVC: IVC is normal in size. CONCLUSIONS: 1. Concentric LV remodeling. Normal left ventricular systolic function.The Ejection Fraction (Doshi's) is measured at 66 %. Left ventricular diastolicparameters are consistent with normal diastolic function. The average global longitudinalstrain rate is borderline. 2. Normal right ventricular size. Wire noted in the right heart. RV normalsystolic function TV S'~0.15 m/s. MEASUREMENTS: 2D/MM Value Range DopplerValue Range LVIDd 2D 4.66 cm [ 3.80 - 5.20 ] AV Peak Vel2.88 m/s [ 1.00 - 1.70 ] LVIDs 2D 2.46 cm [ 2.20 - 3.50 ] AV Peak PG33.18 IVSd 2D 1.05 cm [ 0.60 - 0.90 ] AV Mean PG22.01 mmHg LVPWd 2D 1.09 cm [ 0.60 - 0.90 ] AV VTI70.57 cm LV Thickness Ratio 0.96 LVOT Peak Vel1.25 m/s [ 0.70 - 1.10 ] LV FS 2D 47.25 % [ 27.00 - 45.00 ] LVOT Peak PG6.25 LV Mass 2D 181.25 g LVOT Mean PG2.85 mmHg LV Mass Index 2D 80.56 g/m2 LVOT VTI26.12 cm RWT 0.47 LVOT Diam1.76 cm EDV Mod BP 76.35 ml [ 46.00 - 106.00 ] LEDA VTI0.90 cm2 LV EDV Index 33.93 ml/m2 LVOT/AV VTI0.37 - Dimensionless index (DVI) ESV Mod BP 26.37 ml [ 14.00 - 42.00 ] MV E Peak Vel1.39 m/s [ 0.60 - 1.30 ] EF Mod BP 66 % [ 54 - 74 ] MV A Peak Vel0.65 m/s [ 1.00 - 1.20 ] LA Length 2C 6.50 cm MV E/A214.77 ratio [ 0.80 - 1.50 ] LA Length 4C 5.63 cm MV Decel Zymr087.61 msec [ 104.00 - 258.00 ] LA Volume BP 106.53 ml Med E` Vel10.12 cm/sec [ 8.00 - 15.00 ] LA Volume Index 47.35 ml/m2 [ 16.00 - 34.00 ] Lat E` Vel11.29 cm/sec [ 10.00 - 15.00 ] RV Base Dimen 2D 3.3 cm [ 2.5 - 4.2 ] Average E/E`12.98 TAPSE 1.53 cm [ 1.71 - 5.00 ] MR Peak Vel5.00 m/s RA Volume 54.21 ml MR Peak PG100.00 RA Volume Index 24.09 ml/m2 RV S`14.94 cm/sec AoR Diam 2D 3.21 cm [ 2.70 - 3.70 ] TR Peak Vel3.40 m/s [ 1.00 - 2.80 ] Ao Root Index 1.43 cm/m2 [ 1.00 - 2.00 ] TR Peak PG46.2 Asc Ao Diam 2D3.25 cm Asc Ao Index1.44 cm/m2 - ATTESTATION: I have reviewed and interpreted the pertinent images and measurements ofthis study. I attest to the conclusions in the final report that is provided above. DISCLAIMER: The study images and the final report will be retained in the patientchart by the [facility] for the legally required time period. This chart constitutesthe legal record of any testing performed. Electronically Signed By: Hema Aguilera M.D. 12/16/2024 9:42:53 AM TR[facility] ON [facility]ER Electronically Signed By: eHma Aguilera M.D. 12/16/2024 9:42:53 AM TRY ON BASTER Дмитрий Torres MD CV ECHO PROCEDURES Final Resul t * (ABNORMAL) Protime-INR (12/16/2024) INR 1.90(A) 0.90 - 1.10 Blood 12/16/2024 Result [facility] Historical Provider LAB BLOOD ORDERABLES Shalini l Result * (ABNORMAL) Protime-INR (12/09/2024) INR 2.50(A) 0.90 - 1.10 Blood 12/09/2024 Historical Provider LAB BLOOD ORDERABLES Shalini l Result * XR Chest Pa Lateral 2 Views (12/06/2024 10:18 AM TRY ON BASTER) Anatomical Region Laterality Modality Body, Chest N/A Computed Radiogr aphy 12/06/2024 10:5 3 AM TRY ON BASTER Impressions 12/06/2024 11:52 AM TRY ON BASTER Dual-lead pacemaker is seen in unchanged position with leads in the right atrium and right ventricle. New small volume bilateral effusions and basilar atelectasis. Unchanged sequelae of emphysema. Unchanged cardiomediastinal silhouette. Dictated by: Zoraida aPgan MD The radiology attending physician has personally reviewed this study, and had reviewed and/or edited this written report and agrees with it. Electronically signed by: Mitul Howe M.D. Narrative 12/06/2024 11:52 AM TRY ON BASTER EXAMINATION: XR CHEST PA LATERAL 2 VIEWS HISTORY: Shortness of breath COMPARISON:CT on 05/31/2024 Procedure Note Mitul Howe MD - 12/06/2024 EXAMINATION: XR CHEST PA LATERAL 2 VIEWS HISTORY: Shortness of breath COMPARISON:CT on 05/31/2024 IMPRESSION: Dual-lead pacemaker is seen in unchanged position with leads in the right atrium and right ventricle. New small volume bilateral effusions and basilar atelectasis. Unchanged sequelae of emphysema. Unchanged cardiomediastinal silhouette. Dictated by: Zoraida Pagan MD The radiology attending physician has personally reviewed this study, and had reviewed and/or edited this written report and agrees with it. Electronically signed by: Mitul Howe M.D. Kiesha Varela MD IMG XR PROCEDURES Final R esult * Pulmonary Function Test - (12/06/2024 9:13 AM TRY ON BASTER) FVC PRE 1.74 L [facility] FVC %PRE PRED 66 % [facility] FEV1 PRE 1.06 L [facility] FEV1 %PRE PRED 53 % [facility] FEV1/FVC PRE 61.0 % [facility] Anatomical Region Laterality Modality PFT 12/06/2024 8:59 AM TRY ON BASTER Narrative 12/08/2024 10:52 AM TRY ON BASTER PFT performed at:->[facility] Adult PFT Lab- [id number] Procedure:->Spirometry Pulmonary Function Test Interpretation SPIROMETRY: The FEV1 to FVC ratio is reduced. The decreased expiratory flow and FEV1 and FVC are consistent with a combined restrictive and obstructive abnormality. The inspiratory loop is appropriate for the expiratory flow abnormality. Impression: There is a moderately severe obstructive defect. Measurement of lung volumes is suggested to rule out coexisting restriction. Compared with most recent study, there has been significant interval worsening of the obstructive ventilatory defect. The attending pulmonary physician certifies a physician presence in the [facility] during the administration of aerosolized bronchodilator. The attending pulmonary physician certifies that he/she has reviewed and interpreted the graphic and numerical data of this pulmonary function study and agrees with the written final report. The lower limit of normal for PaO2 and %HbO2 is age dependent. However, the [facility] Pulmonary Function Laboratory defines hypoxemia as a PaO2 <56 mm Hg or a %HbO2 <89%. Starting on October of 2024 the [facility] Pulmonary Function Laboratory utilizes race neutral GLI Global normative equations. Maurilio Horner MD PFT ORDERABLES F inal Result * ECG 12 lead (12/02/2024 9:17 AM TRY ON BASTER) Дмитрий Torres MD ECG ORDERABLES Edited Result - Final * DEVICE CHECK - IN OFFICE (12/02/2024 8:05 AM TRY ON BASTER) Anatomical Region Laterality Modality Other 12/02/2024 2:00 AM TRY ON BASTER Narrative 12/08/2024 10:47 AM TRY ON BASTER Interpretation Summary: Battery and Leads (BL) Normal parameters noted on battery and lead(s) Presenting Rhythm (WA) Ventricular Sensing (VS) Atrial Fibrillation or Flutter Ventricular Pacing (INVESTMENT UNDERWRITER) Arrhythmic events (AE) No new arrhythmic events in monitoring period Anticoagulation (AC) Patient on anticoagulant therapy Patient prescribed Warfarin (Coumadin) Procedure Note Дмитрий Torres MD - 12/08/2024 Interpretation Summary: Battery and Leads (BL) Normal parameters noted on battery and lead(s) Presenting Rhythm (WA) Ventricular Sensing (VS) Atrial Fibrillation or Flutter Ventricular Pacing (INVESTMENT UNDERWRITER) Arrhythmic events (AE) No new arrhythmic events in monitoring period Anticoagulation (AC) Patient on anticoagulant therapy Patient prescribed Warfarin (Coumadin) Дмитрий Torres MD CV CARDIAC SERVICES PROCEDURES Final Result * (ABNORMAL) Comprehensive metabolic panel (09/01/2024 9:30 AM TRY ON BASTER) SCRIBED Sodium 141 136 - 145 mmol/L TXP NO LAB FOUND SCRIBED Potassium 4.3 3.5 - 5.1 mmol/L TXP NO LAB FOUND SCRIBED Chloride 101 98 - 107 mmol/L TXP NO LAB FOUND SCRIBED Carbon Dioxide 32.3(A) 21.0 - 32.0 mmol/L TXP NO LAB FOUND SCRIBED Anion Gap 7.7 5.0 - 15.0 mmol/L TXP NO LAB FOUND SCRIBED Urea Nitrogen (BUN) 23 6 - 24 mg/dl TXP NO LAB FOUND SCRIBED Creatinine 1.52(A) 0.55 - 1.02 mg/dl TXP NO LAB FOUND SCRIBED Glucose 217(A) 70 - 99 mg/dl TXP NO LAB FOUND SCRIBED Calcium 9.0 8.4 - 10.5 mg/dl TXP NO LAB FOUND SCRIBED Bilirubin 0.3 0.2 - 1.0 mg/dl TXP NO LAB FOUND SCRIBED Plasma Protein 7.1 6.4 - 8.2 g/dl TXP NO LAB FOUND SCRIBED Albumin 3.2(A) 3.4 - 5.0 g/dl TXP NO LAB FOUND SCRIBED Alkaline Phosphatase 142 55 - 142 Units/L TXP NO LAB FOUND SCRIBED Alanine Transaminase (ALT) 56 14 - 59 Units/L TXP NO LAB FOUND SCRIBED Aspartate Transaminase (AST) 59(A) 15 - 37 Units/L TXP NO LAB FOUND SCRIBED eGFR in 34 >89 TXP NO LAB FOUND SCRIBED eGFR in NonAfrican Zambian 34 >89 TXP NO LAB FOUND Blood 09/01/2024 9:30 AM TRY ON BASTER us Дмитрий Torres MD LAB BLOOD ORDERABLES Final Res ult TXP NO LAB FOUND * Hemoglobin A1c (10/02/2023) Blood us Colleen Bain MD LAB BLOOD ORDERABLES Final Result EXTERNAL LAB * (ABNORMAL) Lipid panel (03/03/2022 11:18 AM CDT) Cholesterol 108 30 - 199 mg/dL [facility] Comment: Interpretive Data Ages < or = 19 years Acceptable: <170 mg/dL Borderline high: 170-199 mg/dL High: >or= 200 mg/dL Ages > or = 20 years Desirable: <200 mg/dL Borderline high: 200-239 mg/dL High: >or= 240 mg/dL Literature References: 1. Expert Panel on Integrated Guidelines for Cardiovascular Health and Risk Reduction in Children and Adolescents. Pediatrics 2011;128:S213 2. NCEP Expert Panel. Circulation 2004;110:227 Current Interpretive Data was last revised on 2018. Triglycerides 222(H) <=149 mg/dL [facility] Comment: Interpretive Data Ages < or = 9 years Acceptable: <75 mg/dL Borderline high: 75-99 mg/dL High: >or= 100 mg/dL Ages 10 to 20 years Acceptable: <90 mg/dL Borderline high: 90-129 mg/dL High: >or= 130 mg/dL Ages > or = 20 years Desirable: <150 mg/dL Borderline high: 150-199 mg/dL High: 200-499 mg/dL Very high: >or= 499 mg/dL Literature References: 1. Expert Panel on Integrated Guidelines for Cardiovascular Health and Risk Reduction in Children and Adolescents. Pediatrics 2011;128:S213 2. NCEP Expert Panel. Circulation 2004;110:227 Current Interpretive Data was last revised on 2018. HDL 31(L) >=40 mg/dL [facility] Comment: Interpretive Data Ages < or = 19 years Acceptable: >45 mg/dL Borderline low: 40-45 mg/dL Low: <40 mg/dL Ages > or = 20 years Desirable: >or= 60 mg/dL Low: <40 mg/dL Literature References: 1. Expert Panel on Integrated Guidelines for Cardiovascular Health and Risk Reduction in Children and Adolescents. Pediatrics 2011;128:S213 2. NCEP Expert Panel. Circulation 2004;110:227 Current Interpretive Data was last revised on 2018. LDL, calculated 33 <=129 mg/dL [facility] Comment: Interpretive Data Ages < or = 19 years Acceptable: <110 mg/dL Borderline high: 110-129 mg/dL High: >or= 130 mg/dL Ages > or = 20 years Optimal: <100 mg/dL Near optimal: 100-129 mg/dL Borderline high: 130-159 mg/dL High: >160 mg/dL Literature References: 1. Expert Panel on Integrated Guidelines for Cardiovascular Health and Risk Reduction in Children and Adolescents. Pediatrics 2011;128:S213 2. NCEP Expert Panel. Circulation 2004;110:227 Current Interpretive Data was last revised on 2018. Non-HDL Cholesterol 77 mg/dL [facility] Comment: Interpretive Data Ages < or = 19 years Acceptable: <120 mg/dL Borderline high: 120-144 mg/dL High: >145 mg/dL Ages > or = 20 years When triglycerides are >200 mg/dL, Non-HDL cholesterol is a secondary target of therapy with treatment goals that are 30 mg/dL greater than the LDL cholesterol target. Literature References: 1. Expert Panel on Integrated Guidelines for Cardiovascular Health and Risk Reduction in Children and Adolescents. Pediatrics 2011;128:S213 2. NCEP Expert Panel. Circulation 2004;110:227 Current Interpretive Data was last revised on 2018. Chol/HDL ratio 3 [facility] Blood 03/03/2022 11:1 8 AM CDT 03/03/2022 12:31 PM CDT Kal Mccray MD PhD LAB BLOOD ORDERABLES Shalini olivier Result [facility] [place] [address] * Dexa Bone Density (01/11/2019 2:40 PM CDT) Anatomical Region Laterality Modality Wrist N/A Radiographic Zeinab ging Narrative 01/13/2019 2:57 PM CDT Patient Name: Walker Hilliard Date of : 1945 Date of scan: 01/11/2019 Bone mineral density was performed on a HoloLonestar Heart Discovery Densitometer. Machine Cross-calibration and Precision studies have been performed with a least significant change of 0.024 g/cm at the spine, 0.020 g/cm at the total proximal femur, and 0.014g/cm at the forearm. HISTORY: This is a 73 y.o. postmenopausal female with a history of breast cancer and low bone mass. Currently on treatment with anticoagulants, Aromatase inhibitor, calcium and vitamin D. With a current complaint of back and leg pain. History of tobacco use: Social History Tobacco Use Smoking Status Former Smoker INDICATIONS: Menopause status, treatment monitoring, aromatase inhibitor use and history of low bone mass. FINDINGS: BONE MINERAL DENSITY OF THE LUMBAR SPINE Bone Mineral Density (BMD) of the lumbar spine was measured from L1-L4 and the average density was calculated to be 1.062 gm/cm. This corresponds to a T-score standard deviations from the mean of young adults of 0.1. There is no previous study available for comparison. BONE MINERAL DENSITY OF THE PROXIMAL FEMUR Bone Mineral Density (BMD) of the left hip total was found to be 0.988 gm/cm2. This corresponds to a T-score standard deviations from the mean of young adults of 0.4. Femoral neck is 0.748 gm/cm2 with a T-score of -0.9. There is no previous study available for comparison. SUMMARY:Bone mineral density is near the young adult normal mean with no increased risk for fracture. ADDITIONAL COMMENTS: If the patient has a history of a fragility fracture, a fracture that occurred with trauma equivalent to a fall from a standing position or less, then the diagnosis is osteoporosis. The risk of osteoporotic fracture increases approximately 2-fold for each 1.0 SD decrease in T-score. However, low bone density is not the only risk factor for fracture. Other factors include patient s age, previous osteoporotic fracture or prior fracture as an adult, loss of height of greater than 2 inches, corticosteroid use, risk of falling, risk of injury, and family history of osteoporosis. Not everyone with low bone mineral density has osteoporosis. Osteomalacia and other metabolic bone disorders should also be considered where indicated. Patients who have osteoporosis should be evaluated for specific diseases and conditions (secondary causes) that may cause or contribute to bone loss. Consider repeating this study in 1-2 years to assess the patient s response to treatment, if applicable. It is recommended that any follow up exam be performed on the same machine if possible for better accuracy. DEFINITIONS: Osteoporosis: BMD at or below -2.5 T-score Osteopenia (low bone mass): BMD between -1.0 and-2.5 T-score. The Bone Health Program adopts the following WHO definitions: Osteoporosis: BMD below -2.5 S.D. as compared to the BMD of young normal adults. Osteopenia or Low Bone Mass: BMD between -1.0 and -2.5 S.D. below the BMD of young normal adults. Normal Bone Density: BMD equal to or greater than -1.0 S.D. as compared to the BMD of young normal adults. References: 1) Anand, Annals of Internal Medicine 114(11): 919-923 (1990) 2) Franci, Lancet 341 : 72-75 (1992) 3) Avinash, Journal Bone and Mineral Research 7(6): 633-8 (1991) 4) Ean, Journal Bone and Mineral Research 8(10):1227-33 (1992) The history and data sections of the bone mineral density scan were prepared by Serene Alex who is accredited by the International Society of Clinical Densitometry. The overall patient assessment and scan interpretation were performed by James Orosco MD who is certified by the International Society of Clinical Densitometry. [id number] Berlin Escobar MD IMG DXA PROCEDURES Final Resul t from Last 3 Months or Most Recently Relevant to Health Maintenance Insurance MEDICARE [facility] MEDICARE SUPPLEMENT [facility] MEDIC[facility] MEDICARE [facility] MEDICARE SUPPLEMENT Advance Directives For more information, please contact: [phone] * LIMITED - No CPR (Latest Code Status on File) Date Activated Date Inactivated Comments 03/13/2022 9:04 PM 03/18/2022 7:05 PM Question Answer Comments Provide aggressive medical m anagement before a full cardiopulmonary arrest occurs. Use antibiotics, IV Fluids, and medical treatment unless specifically selected below: No intubationNo cardioversion * LIMITED - No CPR Date Activated Date Inactivated Comments 03/02/2022 10:05 PM 03/05/2022 9:37 PM Question Answer Comments Provide aggressive medical m anagement before a full cardiopulmonary arrest occurs. Use antibiotics, IV Fluids, and medical treatment unless specifically selected below: No intubation * LIMITED - No CPR Date Activated Date Inactivated Comments 03/02/2022 9:33 PM 03/02/2022 10:05 PM * LIMITED - No CPR Date Activated Date Inactivated Comments 03/18/2019 5:50 PM 03/21/2019 8:30 PM Question Answer Comments Provide aggressive medical m anagement before a full cardiopulmonary arrest occurs. Use antibiotics, IV Fluids, and medical treatment unless specifically selected below: No intubation * Full Code Date Activated Date Inactivated Comments 03/18/2019 11:23 AM 03/18/2019 5:50 PM Care Teams Bonderizer Relationship Specialty Start Date End Date Lopez Pool MD PCP - General Family Medicine 03/18/22 Hema Castaneda MD Consulting Physician Cardiology 01/11/19 Colleen Bain MD Referring Physician Endocrinology Diabetes & Metabolism 04/07/19 Дмитрий Torres MD Referring Physician Cardiology 04/07/19 Jacqueline Schaeffer, upper leather cutter Failure Coordinator Cardiology 07/13/24 Anat Hutchison 07/13/24
--- OUTSIDE RECORDS SUMMARY | 2025-01-04 14:14 | XMS_ITS | Encounter Summary ---
Author Organization [facility] Healthcare Address [address] [place] [address] Care Team Providers Care Braid Folder Name Role Phone Elmer Wallace MD Primary Care Provider Hema Castaneda MD Unavailable [phone] Colleen Bain MD Unavailable [phone] Rosette Espinoza MD Unavailable [phone] Jenni Hartley RN Unavailable Unavailable Meenu Jones NP Unavailable [phone] Lopez Pool MD Primary Care Provider [phone] Jacqueline Schaeffer RN Unavailable Unavailable Jenni Hartley RN Unavailable Unavailable Anat Hutchison Unavailable Unavailable Encounter Details Date Type Department Care Team (Late st Contact Info) Description 10/20/2019 Telephone [facility] Transplant Heart [address] [facility] [id number] [place] [address] Genesis Brito Social History Tobacco Use Types Packs/Day Years Used Date Smoking Tobacco: Former Cigarettes Q uit: 2006 Smokeless Tobacco: Never Alcohol Use Standard Drinks/Week Comments No 0 (1 standard drink = 0.6 oz pur e alcohol) minimal Comments Unknown Sex and Gender Information Value Date Recorded Sex Assigned at Not on file Legal Sex Female 3:00 AM OYSTER UNLOADER Gender Identity Female 07/13/2018 9:28 AM CDT Sexual Orientation Not on file 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 on file Not on file Not on file documented as of this encounter Plan of Treatment Upcoming Encounters Date Type Department Care Team (Latest Contact Info) Description 02/10/2025 7:30 AM CDT Hospital Encounter [facility] [place] [address] [place] [address] Fred SullivanPlayers Assistant, [address] [place], [place] [id number] Patricia Smith MD [address] [facility] [address] [place], [place] [id number] Atrial fibrillation, unspecified type (HCC) 02/10/2025 7:30 AM CDT - 02/10/2025 8:05 AM CDT Surgery [facility] Vascular [address] [phone] Patricia Smith MD [address] [facility] [address] [place], [place] [id number] [employer] documented as of this encounter Visit Diagnoses Not on filedocumented in this encounter Additional Health Concerns Infection Onset Date Last Indicated Resolved Time COVID: Suspected 03/13/2022 03/13/2022 03/13/2022 6:26 PM CDT documented as of this encounter Care Teams Braid Folder Relationship Specialty Start Date End Date Elmer Wallace MD PCP - General 02/09/17 03/17/22 Lopez Pool MD PCP - General Family Medicine 03/18/22 Hema Castaneda MD Consulting Physician Cardiology 01/11/19 Colleen Bain MD Referring Physician Endocrinology Diabetes & Metabolism 04/07/19 Rosette Espinoza MD Referring Physician Cardiology 04/07/19 Jenni Hartley, RN Registered Nurse Cardiology 04/02/21 04/22/21 Meenu Jones NP Lead Refiner Cardiology 04/02/21 04/22/21 Jacqueline Schaeffer, cold strip feeder Failure Coordinator Cardiology 07/13/24 Jenni Hartley, RN Registered Nurse 07/13/24 08/01/24 Anat Hutchison 07/13/24 documented as of this encounter
--- OUTSIDE RECORDS SUMMARY | 2025-01-04 14:14 | XMS_ITS | Encounter Summary ---
Author Organization [facility] Address [address] [place] [address] Phone Care Team Providers Care Marine Transport Professionals Name Role Phone Hema Castaneda MD Unavailable [phone] Colleen Bain MD Unavailable [phone] Rosette Espinoza MD Unavailable [phone] Lopez Pool MD Primary Care Provider [phone] Jacqueline Schaeffer RN Unavailable Unavailable Anat Hutchison Unavailable Unavailable Encounter Details Date Type Department Care Team (Late st Contact Info) Description 12/21/2024 Telephone [facility] Cardiology [address] [facility] Advanced Medicine 8th [place] [address] [place] [address] Rosette Espinoza MD [address] [facility] [address] [place] [address] Social History Tobacco Use Types Packs/Day Years [...] often do you attend chur ch or confucianism services? Never 03/14/2022 Do you belong to any clubs o r organizations such as mu-ism groups, unions, fraternal or athletic groups, or [...] place to sleep or slept in a penitentiary (including now)? No 03/14/2022 Personal Safety Answer Date Recorded Have you ever been in or are you currently in a harmful physical or emotional relationship or is someone making you feel afraid or unsafe? 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 Pt has had bladder and breast CA and so they are concerned that she might also have a GI CA. The plan is for CBC on 12/26/24 and if blood counts are good they will restart the Warfarin and then recheck CBC again on 01/02/25. Pt's regular CV has been moved back to 02/10/25 and I am following INRsto make sure she has at least 4 weeks of weekly INRs greater than or equal to 2.0 prior to the CV. I will put through for a referral to for the consideration of Watchman and have made pt's daughter know the need for stable CBC and dual antiplatelet medications for this. Vijay Warner CIAL ADMINISTRATIVE ASSISTANT * Telephone Encounter - Vijay Wheeler - 12/21/2024 9:56 AM CST , I talked with pt's daughter. Pt recently got out of the hospital after needing 2 units of blood forHGB 6.4 and her Warfarin is on hold for now. Pt has been having a hard time staying on Warfarin at therapeutic levels d/t her bleeding issues. Pt's daughter says 3 admission for low blood counts since May and much of the time since May off Warfarin. Pt's daughter says pt's PCP is having her ask if pt can have a MARIO/CV? Pt's daughter also says pt's PCP is having her ask us if pt can have a Watchman? Thank you, Vijay CIAL ADMINISTRATIVE ASSISTANT * Telephone Encounter - Brinda Limon - 12/21/2024 9:34 AM CST Olga Patient's daughter Tyra would like a return call regarding Warfarin and cardioversion. She can be reached at [phone]. CIAL ADMINISTRATIVE ASSISTANT documented in this encounter Plan of Treatment Upcoming Encounters Date Type Department Care Team (Latest Contact Info) Description 02/10/2025 7:30 AM CDT Hospital Encounter [facility] [address] [place] [address] Nate Inspector [place], [address] [place] [id number] Patricia Smith MD [address] [address] Atrial fibrillation, unspecified type (HCC) 02/10/2025 7:30 AM CDT - 02/10/2025 8:05 AM CDT Surgery [facility] [address] [place] [phone] Patricia Smith MD [address] [phone] C[employer]ERS[employer] documented as of this encounter Visit Diagnoses Not on filedocumented in this encounter Care Teams Marine Transport Professionals Relationship Specialty Start Date End Date Lopez Pool MD PCP - General Family Medicine 03/18/22 Hema Castaneda MD Consulting Physician Cardiology 01/11/19 Colleen Bain MD Referring Physician Endocrinology Diabetes & Metabolism 04/07/19 Rosette Espinoza MD Referring Physician Cardiology 04/07/19 Jacqueline Schaeffer, prototype engineer Failure Coordinator Cardiology 07/13/24 Anat Hutchison 07/13/24 documented as of this encounter
--- OUTSIDE RECORDS SUMMARY | 2025-01-04 14:14 | XMS_ITS | Continuity of Care Document ---
Author Organization [facility] Address [id number] [place] [address] [place] [address] Phone Care Team Providers Care Die Maintenance Technician Name Role Phone Jimmy Blackwell DO Unavailable Unavailable Advance Directives Directive Yes / No Effective Date File Name No Information Encounters Encounter Description Practice Location Reason(s) For Visit Diagnoses Date Provider Providers Copied on Encounter [facility], [address], [place], [place], [id number], tel:[phone] [facility] No Information Rosalva Ibarra. [address] [place], [address], [place]. tel: [phone] Family History Family Member Type Diagnosis Age At Onset No Information Payers Payer name Insurance type Covered libertarian ID Authoriza tion(s) [employer] [facility] [id number] Medicaid [facility] [id number] Social History Type Description Quantity Date Captured Comments Sex Female Smoking Status No Information Chief Complaint And Reason For Visit No Information Reason For Referral Reason For Referral No Information History Of Present Illness Encounter Date Complaint History Of Prese nt Illness No Information Functional Status Date Functional Assessmen t No Information Instructions Date Instruction Additional Infor mation No Information Assessments Type Assessment Date No Information Patient Care Teams Name Effective Dates (start - stop) Status Members No Information
--- OUTSIDE RECORDS SUMMARY | 2025-01-04 14:14 | XMS_ITS | Clinical Summary ---
Author Organization [facility] Address [address] [place] [address] Care Team Providers Care Sewing Teacher Name Role Phone Lopez Pool MD Primary Care Provider [phone] Lopez Pool MD Unavailable [phone] Allergies No known active allergies Medications ferrous sulfate, 65 mg elemental, 325 (65 FE) MG tabletIndication s:supplement Take 1 tablet (325 mg total) by mouth every other day. Indications: supplement Active albuterol sulfate HFA 108 (90 Base) MCG/ACT inhalerIndicatio ns:COPD Inhale 2 puffs into the lungs every 6 (six) hours as needed. Indications: COPD 018 2028 Active CALCIUM CARBONATE-VITAMI N D ORIndications:narvaez pplement Take 1 tablet by mouth daily. Indications: supplement Active Magnesium Oxide 400 MG CapIndications:s upplement Take 2 tablets by mouth daily. 30 capsule 022 Active amiodarone 200 MG tabletIndication s:afib Take 1 tablet (200 mg total) by mouth daily. Indications: afib 022 Active Vitamin D3, cholecalciferol, 2000 UNIT Tab tabletIndication s:supplement Take 0.5 tablets (25 mcg total) by mouth daily. Indications: supplement Active FUROSEMIDE ORIndications:di uretic Take 60 mg by mouth daily. Indications: diuretic Active albuterol (PROVENTIL) (2.5 MG/3ML) 0.083% nebulizer solutionIndicati ons:breathing Take 3 mLs (2.5 mg total) by nebulization every 4 (four) hours as needed for Wheezing. 75 mL 022 Active levothyroxine (SYNTHROID) 137 MCG tabletIndication s:thyroid Take 1 tablet (137 mcg total) by mouth every morning. Indications: thyroid Active sertraline (ZOLOFT) 100 MG tabletIndication s:mood Take 1 tablet (100 mg total) by mouth daily. Indications: mood Active spironolactone (ALDACTONE) 25 MG tabletIndication s:diuretic Take 1 tablet (25 mg total) by mouth daily. Indications: diuretic Active metFORMIN (GLUCOPHAGE) 500 MG tabletIndication s:Diabetes Mellitus Take 1 tablet (500 mg total) by mouth 2 (two) times daily with meals. Indications: Diabetes 024 Active Insulin Glargine (BASAGLAR KWIKPEN SC)Indications:D iabetes Inject 55 Units into the skin nightly at bedtime. Indications: Diabetes 024 Active fluticasone propionate (FLONASE) 50 MCG/ACT nasal sprayIndications :Nasal Decongestion 2 sprays by Nasal route daily. Indications: Nasal Decongestion 024 Active ondansetron (ZOFRAN-ODT) 4 MG disintegrating tablet Take 1 tablet (4 mg total) by mouth every 8 (eight) hours as needed for Nausea. 20 tablet 024 Active Fluticasone-Umec lidin-Vilant (TRELEGY ELLIPTA) 100-62.5-25 MCG/ACT AEROSOL POWDER, BREATH ACTIVATED 1 puff daily. Active sucralfate (CARAFATE) 1 G tablet Take 1 tablet (1 g total) by mouth 4 (four) times daily. 025 Active aspirin 81 MG chewable tablet Chew 1 tablet (81 mg total) by mouth daily. Active pantoprazole EC (PROTONIX) 40 MG tablet Take 1 tablet (40 mg total) by mouth 2 (two) times a day. Active warfarin (COUMADIN) 4 MG tabletIndication s:blood thinner Take 1 tablet (4 mg total) by mouth see administration instructions. Indications: blood thinner M,W,F,S,Sun 022 2024 Discontinued nystatin (MYCOSTATIN) powderIndication s:rash Indications: rash 12/08/2 022 2024 Discontinued(E rror) warfarin (COUMADIN) 5 MG tabletIndication s:blood thinner Take 1 tablet (5 mg total) by mouth see administration instructions. Indications: blood thinner Tues, Thurs 2024 Discontinued(S top Taking at Discharge) loratadine (CLARITIN) 10 MG tabletIndication s:Nasal Decongestion Take 1 tablet (10 mg total) by mouth daily. Indications: Nasal Decongestion 024 2024 Discontinued(E rror) traMADol (ULTRAM) 50 MG tabletIndication s:Chronic Pain Take 1 tablet (50 mg total) by mouth every 6 (six) hours as needed. Indications: Chronic Pain 20 tablet 024 2024 Discontinued(E rror) Active Problems Problem Noted Date Diagnosed Date GI bleeding 12/20/2024 Symptomatic anemia 12/19/2024 Acquired hypothyroidism 12/08/2022 Overview (06/18/2024): Last Assessment & Plan: Symptomatically euthyroid but recent TSH elevated. Has scheduled repeat FT4 and TSH per Dr. Espinoza. COVID-19 06/02/2022 Pneumonia 02/22/2022 History of bladder cancer 04/17/2021 Overview (04/17/2021): Added automatically from request for surgery [id number] Bladder tumor 11/21/2020 Overview (11/21/2020): Added automatically from request for surgery [id number] NATI (obstructive sleep apnea) 11/02/2020 Overview (06/18/2024): Last Assessment & Plan: -follows with Pulm Dr. Varela -as per Pulm notes on 04/30/2021: Previously on CPAP; no evidence of NATI on last PSG in 2018. -patient continues with nocturnal desats -Daughter would like Ambulatory referral for Sleep Medicine at discharge, thinks her study needs to be repeated. Type 2 diabetes mellitus wit h other specified complication ([facility]) 12/19/2019 Overview (06/18/2024): Last Assessment & Plan: Glucoses high but needs reliable test strips. Also awaiting Dexcom G6 supplies. For now, will increase insulin dosing within a good margin of safety. Stage 3b chronic kidney disease 03/20/2019 Overview (06/18/2024): Last Assessment & Plan: Need optimal glycemic control, minimize risk of hypoglycemia. Pacemaker 01/21/2019 Class 3 severe obesity with serious comorbidity and body mass index (BMI) of 40.0 to 44.9 in adult 07/13/2018 Overview (02/17/2022): Last Assessment & Plan: Discuss nutrition Essential hypertension 07/13/2018 Overview (06/18/2024): Last Assessment & Plan: -Will continue same antihypertensive medications at this time. Malignant neoplasm of breast ([facility]) 0 07/13/2018 Overview (06/18/2024): L radical mastectomy with chemo and XRT x [phone]. Last Assessment & Plan: Sp mastectomy - hold anastrozole inpatient, can resume on discharge. AF (atrial fibrillation) ([facility]) 03/24 Overview (06/18/2024): Last Assessment & Plan: Currently in sinus on exam. CHADS-vasc 8. - currently on warfarin 6 mg daily (goal 2-3) - cont sotolol, renally dosed long term care social worker current use of anticoagulant therapy 0 03/24/2018 Chronic obstructive pulmonary disease ([facility]) 08/28/2017 Overview (06/18/2024): Last Assessment & Plan: Continue Anoro ellipta daily - on 2L nocturnal oxygen. No oxygen needed during daytime Chronic diastolic congestive heart failure ([facility]) 02/22/2010 Overview (06/18/2024): Last Assessment & Plan: Patient presented with shortness of breath, BNP elevated - sp diuresis in the ED with lasix 40mg IV x 1 - no further lasix at this time, as shortness of breath is at her baseline, lungs clear - remains stable on RA during daytime Resolved Problems Problem Noted Date Diagnosed Date Resolved Date Symptomatic anemia 06/18/2024 Acute exacerbation of CHF (c ongestive heart failure) ([facility]) 10/25/2023 06/18/2024 Encounters Date Type Department Care Team Description 12/23/2024 Hospital Follow-up Call [facility] Care Management [facility], [facility] [place] [address] Cori Fernandez RN Hospital Follow Up (12/19/2024 - 12/21/2024 (2 days)/[facility] (Residential )///) 12/19/2024 3:57 PM [facility]ER - 12/21/2024 8:28 AM [facility] [address] [place] [address] Deena Kong MD Wujek, Daniel A, MD Cochran, Keith A, MD Medical Screening Discharge Disposition: Home with Home Health Care 12/19/2024 Travel 12/16/2024 2:40 PM C[facility]Y M[facility]ER - 12/16/2024 11:59 PM [facility] Hospital Encounter [place] [address] Chanel Ponce DATA CONVERSION ANALYST Discharge Disposition: Home or Self Care (Routine Discharge) 12/16/2024 Orders [place] [address] Chanel Ponce NP 12/16/2024 Travel 11/15/2024 8:00 AM C[facility]Y MIXER - 11/15/2024 9:00 AM [facility] [place] [address] [place] [address] [place] [address] Lorin Contreras III, MD TRANS URETHRAL RESECTION BLADDER TUMOR 11/15/2024 7:40 AM [facility] Anest[place] [facility] [place] [address] [place] [address] Rosalba Avery, CLAY PRESS OPERATOR 11/15/2024 6:34 AM C[facility] MIXER - 11/15/2024 9:20 AM [facility] [place] [address] [place], [place] [address] [address] Lorin Contreras III, MD Discharge Disposition: Home or Self Care (Routine Discharge) 11/15/2024 Travel 11/01/2024 9:50 AM CANDY MIXER - 11/01/2024 10:15 AM [facility] [place] [address] [place] [address] [place] [address] Bernardo Brandon MD EGD with cold forcep biopies 11/01/2024 9:35 AM [facility] [place] [address] [place], [place] [address] [place] [address] Jamie Ruelas, CLAY PRESS OPERATOR 11/01/2024 8:24 AM C[facility] M[facility]ER - 11/01/2024 10:33 AM [facility] [place] [address] [place] [address] [place] [address] Bernardo Brandon MD Discharge Disposition: Home or Self Care (Routine Discharge) 11/01/2024 Travel 10/20/2024 Travel from Last 3 Months Social History Tobacco Use Types Packs/Day Years Used Date Smoking Tobacco: Former Smokeless Tobacco: Never Tobacco Cessation:Counseling Given: Not Answered Alcohol Use Standard Drinks/Week Comments No 0 (1 standard drink = 0.6 oz pur e alcohol) OASIS D0700: Social Isolation Answer Da te Recorded Frequency of experiencing loneliness or isolatio n Never 12/30/2023 OASIS A1250: Transportation Answer Date Recorded Lack of Transportation (Medical) No 12/30/2023 Lack of Transportation (Non-Medical) No 12/30/2023 Patient Unable or Declines to Respond No 12/30/2023 OASIS B1300: Health Literacy Answer Sebas e Recorded Frequency of needing help to read materials from doctor or pharmacy Never 12/30/2023 [facility] Utilities Answer Date Recorded In the past 12 months has e [employer], gas, oil, or water [employer] threatened to shut off services in your home? No 12/19/2024 Humiliation, Afraid, Rape, and Kick questionnair e Answer Date Recorded Within the last year, have y ou been afraid of your partner or ex-partner? No 12/19/2024 Within the last year, have y ou been humiliated or emotionally abused in other ways by your partner or ex-partner? No Within the last year, have y ou been kicked, hit, slapped, or otherwise physically hurt by your partner or ex-partner? No 12/19/2024 Within the last year, have y ou been raped or forced to have any kind of sexual activity by your partner or ex-partner? No 12/19/2024 Social Connection and Isolat ion Panel [NHANES] Answer Date Recorded In a typical week, how many times do you talk on the phone with family, friends, or neighbors? More than three times a week 02/22/2022 How often do you get togethe r with friends or relatives? Twice a week 02/22/2022 How often do you attend chur ch or scientologist services? 1 to 4 times per year 02/22/2022 Do you belong to any clubs o r organizations such as zoroastrian groups, unions, fraternal or athletic groups, or school groups? Yes 02/22/2022 How often do you attend meet ings of the clubs or organizations you belong to? 1 to 4 times per year 02/22/2022 Are you , , di vorced, , never , or living with a partner? 02/22/2022 AUDIT-C Answer Date Recorded Q1: How often do you have a drink containing alc ohol? Never 02/22/2022 Average Number of Drinks Not on file 022 Q3: How often do you have si x or more drinks on one occasion? Never 02/22/2022 Overall Financial Resource Strain (CARDIA) Answe r Date Recorded How hard is it for you to pa y for the very basics like food, housing, medical care, and heating? Not hard at all 12/19/2024 PHQ-2 Answer Date Recorded PHQ-2 Score - If the patient scores above 3, please move on to questions 3-9 0 02/22/2022 [facility] - Occupational Stress Questionnaire Answer Date Recorded Do you feel stress - tense, restless, nervous, or anxious, or unable to sleep at night because your mind is troubled all the time - these days? Not at all 02/22/2022 Exercise Vital Sign Answer Date Recorde d On average, how many days pe r week do you engage in moderate to strenuous exercise (like a brisk walk)? 0 days 02/22/2022 On average, how many minutes do you engage in exercise at this level? 0 min 02/22/2022 Hunger Vital Sign Answer Date Recorded Within the past 12 months, y ou worried that your food would run out before you got the money to buy more. Never true 12/20/19 25 Within the past 12 months, t he food you bought just didn't last and you didn't have money to get more. Never true 12/19/2024 PRAPARE - Transportation Answer Date Re corded In the past 12 months, has l ack of transportation kept you from medical appointments or from getting medications? No 12/2024 In the past 12 months, has l ack of transportation kept you from meetings, work, or from getting things needed for daily living? No 12/19/2024 Housing Stability Vital Sign Answer Sebas e Recorded In the last 12 months, was t here a time when you were not able to pay the mortgage or rent on time? No 10/25/2023 In the last 12 months, how many places have you lived? 1 10/25/2023 In the last 12 months, was t here a time when you did not have a steady place to sleep or slept in a skilled nursing (including now)? No 10/25/2023 Housing Stability Vital Sign Answer Sebas e Recorded In the last 12 months, was t here a time when you were not able to pay the mortgage or rent on time? No 12/19/2024 In the past 12 months, how m any times have you moved where you were living? 1 12/19/2024 At any time in the past [address] [facility], were you homeless or living in a skilled nursing (including now)? No 12/19/2024 Comments No Sex and Gender Information Value Date Recorded Sex Assigned at Female 11/01/2024 8:23 AM [facility]ER Legal Sex Female 10:48 PM [facility]ER Gender Identity Not on file Sexual Orientation Not on file Last Filed Vital Signs Vital Sign Reading Time Taken Comments Blood Pressure 116/48 12/21/2024 7:55 AM [facility]ER Pulse 86 12/21/2024 7:55 AM [facility]ER Temperature 36.3 C (97.3 F) 12/21/2024 7:55 AM [facility]ER Respiratory Rate 16 12/21/2024 7:55 AM [facility] M[facility]ER Oxygen Saturation 93% 12/21/2024 7:55 AM C[facility]ER Inhaled Oxygen Concentration - - Weight 108.9 kg (240 lb) 12/21/2024 5:04 AM [facility]ER Height 167.6 cm (5' 6 ) 12/19/2024 6:15 PM [facility]ER Body Mass Index 38.74 12/19/2024 6:15 PM [facility]ER Plan of Treatment Upcoming Encounters Date Type Department Care Team (Late st Contact Info) Description 02/07/2025 8:16 AM CDT Hospital Encounter [facility] [place] [address], [place] [address] [address] [place] [address] [place] [phone] 02/07/2025 8:16 AM CDT - 02/07/2025 8:46 AM CDT Surgery [facility] [address], [place] [address] [place] [address] [place] [address] [place] [phone] CYSTOSCOPY Scheduled Procedures Name Priority Associated Diagnoses Date/Ti me CYSTOSCOPY 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 02/07/2025 8:16 AM CDT Health Maintenance Due Date Last Done Comments Kidney Health Evaluation 1943 Diabetes: Retinopathy Eye Exam 1961 Zoster Vaccines (1 of 2) 1993 Annual Medicare Wellness Visit 2008 RSV Immunization or 60+ Years (1 - 1-dose 75+ series) 2018 DTaP, Tdap and Td Vaccines (2 - Td or Tdap) 09/24/2022 09/24/2012 COVID-19 Vaccine ( season) 2024 09/03/2021, 02/01/2021, 01/04/2021 Influenza Adult (#1) 2024 07/19/2022, 08/01/2020, 07/26/2019, Additional history exists Hemoglobin A1C 03/01/2025 09/01/2024, 06/2024, 10/02/2023, Additional history exists Lipid Panel 09/01/2025 09/01/2024 Pneumococcal Vaccine: 65+ Years Completed 07/23/2018, 07/21/2016, 06/07/2014 Dexa Scan (General) Completed 04/15/2022, 04/02/2021, 01/11/2019 Meningococcal B Vaccine Aged Out No l onger eligible based on patient's age to complete this topic Meningococcal Vaccine Aged Out No catherine alecia eligible based on patient's age to complete this topic RSV Immunizations Under 20 Months Aged Out No longer eligible based on patient's age to complete this topic Goals Goal Patient Goal Type Associated Problems Recent Progress Patient-Stated? Author Safety Patient/family will have appropriate support at home upon discharge General No Priscila Díaz, JOSH Medical Devices Implanted Type Area Special Education Associate Device Identifier Shelf Expiration Date Model / Serial / Lot Pacemaker Pacemaker Right: Chest Procedures Procedure Name Priority Date/Time Associated Diagnosis Comments CBC W/DIFF AUTOMATED Routine 12/21/2024 5:00 AM [facility]ER BASIC METABOLIC PANEL Routine 12/21/2024 5:00 AM C[facility]ER POCT GLUCOSE - CHEN DOCKED DEVICE Routine 12/21/2024 3:20 AM [facility]ER POCT GLUCOSE - CHEN DOCKED DEVICE Routine 12/20/2024 9:28 PM CAND[facility] MIXER POCT GLUCOSE - CHEN DOCKED DEVICE Routine 12/20/2024 11:23 AM C[facility] M[facility]ER POCT GLUCOSE - CHEN DOCKED DEVICE Routine 12/20/2024 6:23 AM [facility] BASIC METABOLIC PANEL Routine 12/20/2024 5:03 AM [facility]ER IRON SAT PANEL (IRON,IBC,%SAT) Routine 12/20/2024 5:03 AM C[facility]ER FERRITIN Routine 12/20/2024 5:03 AM [facility] M[facility]ER PROTHROMBIN TIME, VENOUS Routine 12/20/2024 5:03 AM CANDY MIXER CBC W/DIFF AUTOMATED Routine 12/20/2024 5:03 AM C[facility] MIXER TRANSFUSE RED BLOOD CELLS Routine 12/19/2024 11:41 PM CAND[facility] MIXER TRANSFUSE RED BLOOD CELLS Routine 12/19/2024 8:00 PM CANDY MIXER POCT GLUCOSE - CHEN DOCKED DEVICE Routine 12/19/2024 6:58 PM [facility] M[facility]ER OCCULT BLOOD, FECES STAT 12/19/2024 5 :00 PM CAND[facility] M[facility]ER TYPE & SCREEN STAT 12/19/2024 4:34 PM [facility] M[facility]ER PRO-BRAIN NATRIURETIC PEPTIDE STAT 12/19/2024 4:34 PM CANDY MIXER PROTHROMBIN TIME, VENOUS STAT 12/19/2024 4:34 PM CANDY MIXER BASIC METABOLIC PANEL STAT 12/19/2024 4:34 PM CAND[facility] MIXER CBC W/DIFF AUTOMATED STAT 12/19/2024 4:34 PM CANDY MIXER XR CHEST PORTABLE STAT 12/19/2024 4:2 6 PM CANDY MIXER ECG 12-LEAD Routine 12/19/2024 4:04 PM [facility] M[facility]ER THYROXINE, FREE (FT4) Routine 12/16/2024 2:57 PM CAND[facility] M[facility]ER PRO-BRAIN NATRIURETIC PEPTIDE Routine 12/16/2024 2:57 PM CANDY MIXER Chronic diastolic (congestive) heart failure ([facility]CC) TSH W/REFLEX Routine 12/16/2024 2:57 PM CANDY MIXER Chronic diastolic (congestive) heart failure ([facility]CC) COMPREHENSIVE METABOLIC PANEL Routine 12/16/2024 2:57 PM C[facility] MIXER Chronic diastolic (congestive) heart failure ([facility]) POCT GLUCOSE - CHEN DOCKED DEVICE Routine 11/15/2024 7:31 AM CANDY MIXER CYSTOSCOPY TRANSURETHRAL RESECTION BLADDER TUMOR 11/15/2024 7:25 AM CAND[facility] M[facility]ER 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 PATHOLOGY Routine 11/15/2024 12:00 AM CAND[facility] M[facility]ER H PYLORI UREASE Routine 11/01/2024 9:44 AM CAND[facility] M[facility]ER UPPER GI ENDOSCOPY,BIOPSY 11/01/2024 9:29 AM [facility] M[facility]ER ANEMIA POCT GLUCOSE - CHEN DOCKED DEVICE Routine 11/01/2024 9:05 AM [facility]ER ENDOSCOPY (SCAN ORDER) 7:16 AM C[facility] M[facility]ER PATHOLOGY Routine 11/01/2024 12:00 AM [facility]ER LIPID PANEL Routine 09/01/2024 9:30 AM CANDY MIXER Anemia DM (diabetes mellitus) ([facility]/HCC) HTN (hypertension) Hypothyroidism Hyperlipidemia COPD (chronic obstructive pulmonary disease) ([facility]/HCC) SOB (shortness of breath) HEMOGLOBIN, GLYCOSYLATED Routine 09/01/2024 9:30 AM C[facility] M[facility]ER Anemia DM (diabetes mellitus) ([facility] HHS/HCC) HTN (hypertension) Hypothyroidism Hyperlipidemia COPD (chronic obstructive pulmonary disease) ([facility]/HCC) SOB (shortness of breath) BONE DENSITY/DEXA Routine 04/15/2022 9:1 6 AM CDT Post-menopausal from Last 3 Months or Most Recently Relevant to Health Maintenance Results * (ABNORMAL) BASIC METABOLIC PANEL (12/21/2024 5:00 AM [facility]) Only the most recent of3 resultswithin the time period is included. SODIUM S/P/B 138 136 - 145 MMOL/L 12/21/2024 5:38 AM [facility] POTASSIUM S/P/B 4.2 3.5 - 5.1 MMOL/L 12/21/2024 5:38 AM [facility] CHLORIDE S/P/B 101 98 - 107 MMOL/L 12/21/2024 5:38 AM [facility] CO2 30.1 21.0 - 32.0 MMOL/L 12/21/2024 5:38 AM [facility] GLUCOSE 197(H) 70 - 99 MG/DL 12/21/2024 5:38 AM [facility] Comment: FASTING GLUCOSE 100 TO 125 MG/DL IS CONSISTENT WITH IMPAIRED FASTING GLUCOSE. FASTING GLUCOSE >125 MG/DL IS CONSISTENT WITH DIABETES. RANDOM GLUCOSE >200 MG/DL WITH HYPERGLYCEMIC SYMPTOMS IS CONSISTENT WITH DIABETES. PER ADA GUIDELINES BUN 29(H) 6 - 24 MG/DL 12/21/2024 5:38 AM [facility] CREATININE S/P/B 1.57(H) 0.55 - 1.02 MG/DL 12/21/2024 5:38 AM [facility] CALCIUM S/P/B 8.4 8.4 - 10.5 MG/DL 12/21/2024 5:38 AM [facility] ANION GAP 6.9 5.0 - 15.0 MMOL/L 12/21/2024 5:38 AM [facility] OSMOLALITY (CALC) 297 MOSM/KG 025 5:38 AM [facility] Comment:REFERENCE RANGE NOT ESTABLISHED GFR ESTIMATE 33(L) >89 ML/MIN/1. 73 M2 12/21/2024 5:38 AM [facility] GFR NOTES GFR REFERENCE S: 12/21/2024 5:38 AM C[facility] M[facility]ER [facility] Comment: THE ESTIMATED GFR IS CALCULATED USING THE 2020 CKD-EPI EQUATION. THE FOLLOWING CATEGORIES FOR GRADING RENAL FUNCTION ARE RECOMMENDED BY THE INTERNATIONAL SOCIETY OF NEPHROLOGY (KDIGO 2012 CLINICAL PRACTICE GUIDELINE). G1,NORMAL OR HIGH: >89 ml/min/1.73 m2 G2,MILDLY DECREASED: 60-89 ml/min/1.73 m2 G3A,MILDLY TO MODERATELY DECREASED: 45-59 ml/min/1.73 m2 G3B,MODERATELY TO SEVERELY DECREASED: 30-44 ml/min/1.73 m2 G4,SEVERELY DECREASED: 15-29 ml/min/1.73 m2 G5,KIDNEY FAILURE: <15 ml/min/1.73 m2 12/21/2024 5:00 AM CANDY M[facility]ER Ruthie Scanlon [facility] Final Res ult [facility] [address] [place] [address], * (ABNORMAL) CBC W/DIFF AUTOMATED (12/21/2024 5:00 AM [facility]) Only the most recent of3 resultswithin the time period is included. WBC 7.01 4.00 - 10.80 x10'3/uL 12/21/2024 5:29 AM [facility] RBC 3.31(L) 4.10 - 5.40 x10'6/uL 12/21/2024 5:29 AM [facility] HGB 7.9(L) 12.0 - 16.0 G/DL 12/21/2024 5:29 AM [facility] HCT 26.6(L) 36.0 - 47.0 % 12/21/2024 5:29 AM [facility] MCV 80.4 78.0 - 100.0 FL 12/21/2024 5:29 AM [facility] MCH 23.9(L) 27.0 - 31.0 PG 12/21/2024 5:29 AM [facility] MCHC 29.7(L) 33.0 - 36.0 G/DL 12/21/2024 5:29 AM [facility] RDW 15.9(H) 11.5 - 14.5 % 12/21/2024 5:29 AM [facility] PLT 237 150 - 350 x10'3/uL 12/21/2024 5:29 AM [facility] MPV 11.4(H) 7.4 - 10.4 FL 12/21/2024 5:29 AM [facility] CBC COMMENT NORMAL REFERENCE RANGE NOT ESTABLISHED FOR THE PROPORTIONAL LEUKOCYTE DIFFERENTIAL. 12/21/2024 5:29 AM [facility] NEUTROPHILS % 79.1 % 12/21/2024 5:29 AM [facility] LYMPHOCYTES % 8.7 % 12/21/2024 5:29 AM [facility] MONOCYTES % 9.4 % 12/21/2024 5:29 AM [facility] EOSINOPHILS % 1.1 % 12/21/2024 5:29 AM [facility] BASOPHILS % 1.0 % 12/21/2024 5:29 AM [facility] IMMATURE GRANS % 0.7 % 12/22/19 5:29 AM [facility] NRBC % 0.4 % 12/21/2024 5:29 AM [facility] ABS. NEUTROPHILS 5.54 1.60 - 8.30 x10'3/uL 12/21/2024 5:29 AM [facility] ABS. LYMPHOCYTES 0.61(L) 0.80 - 4.70 x10'3/uL 12/21/2024 5:29 AM [facility] ABS. MONOCYTES 0.66 0.00 - 1.50 x10'3/uL 12/21/2024 5:29 AM [facility] ABS. EOSINOPHILS 0.08 0.00 - 0.40 x10'3/uL 12/21/2024 5:29 AM [facility] LAB ABS. BASOPHILS 0.07 0.00 - 0.20 x10'3/uL 12/21/2024 5:29 AM CANDY MIXER [facility] ABS. IMMATURE GRANULOCYTES 0.05(H) 0.00 - 0.03 x10'3/uL 12/21/2024 5:29 AM CANDY MIXER [facility] ABS. NUCLEATED RBC'S 0.03(H) 0.00 - 0.01 x10'3/uL 12/21/2024 5:29 AM CANDY MIXER [facility] 12/21/2024 5:00 AM CANDY MIXER us Lopez Pool MD LABORATORY Final Result Performing Organization Address City/[facility]/[place] [address], [place] [phone] * (ABNORMAL) POCT glucose (12/21/2024 3:20 AM CANDY MIXER) Only the most recent of7 resultswithin the time period is included. GLUCOSE POC 174(H) 70 - 99 MG/DL 12/21/2024 3:21 AM CANDY MIXER [facility] 12/21/2024 3:20 AM CANDY MIXER us Lopez Pool MD POCT ORDERABLES - DEVICE Final Result Performing Organization Address [facility] [place] [address], [place] [phone] * (ABNORMAL) IRON SAT PANEL (IRON,IBC,%SAT) (12/20/2024 5:03 AM CANDY MIXER) IRON 14(L) 50 - 170 MCG/DL 12/20/2024 9:15 AM [facility] IRON BINDING CAPACITY 412 250 - 450 MCG/DL 12/20/2024 9:15 AM [facility] IRON SATURATION 3 % 9:15 AM CANDY MIXER [facility] Comment:REFERENCE RANGE NOT ESTABLISHED 12/20/2024 5:03 AM CANDY MIXER us Lopez Pool MD LABORATORY Final Result Performing Organization Address [facility] de Phone Number [facility] [address] [place] [address], * (ABNORMAL) PROTIME/INR, VENOUS (12/20/2024 5:03 AM CANDY MIXER) Only the most recent of2 resultswithin the time period is included. [facility] PROTIME 23.7(H) 9.4 - 12.5 SEC 12/20/2024 6:04 AM CANDY MIXER [facility] INR 2.1(H) 0.8 - 1.0 12/20/2024 6:04 AM CANDY MIXER [facility] 12/20/2024 5:03 AM CANDY MIXER us Deena Kong MD LABORATORY Final Result Performing Organization Address [facility] de Phone Number [facility] [address] [place] [address], * FERRITIN (12/20/2024 5:03 AM CANDY MIXER) [facility] FERRITIN 20.7 8 - 252 NG/ML 12/20/2024 9:35 AM CANDY MIXER [facility] 12/20/2024 5:03 AM CANDY MIXER us Lopez Pool MD LABORATORY Final Result Performing Organization Address [facility] de Phone Number [facility] [address] [place] [address], [place] [phone] * TRANSFUSE RED BLOOD CELLS (12/20/2024 2:52 AM CANDY MIXER) Only the most recent of2 resultswithin the time period is included. us Deena Kong MD NURSING TREATMENT ORDERABLES - BLOOD ADMIN Final Result * OCCULT BLOOD, FECES (12/19/2024 5:00 PM CANDY MIXER) OCCULT BLOOD FECAL 4+ NEGATIVE 12/19/2024 5:16 PM CANDY MIXER [facility] STOOL SPECIMEN / Unknown 12/19/2024 5:00 PM CANDY MIXER us Deena Kong MD BODY FLUIDS AND STOOLS ORDERA BLES Final Result Performing Organization Address City/[facility]/ZIP Co de Phone Number [facility] [address] [place] [address], * (ABNORMAL) PRO-BRAIN NATRIURETIC PEPTIDE (12/19/2024 4:34 PM CANDY MIXER) Only the most recent of2 resultswithin the time period is included. [facility] PRO-B TYPE NATRIURETIC PEPTIDE 2,521(H) <450 PG/ML 12/19/2024 5:04 PM CANDY MIXER [facility] Comment: CUT POINTS ESTABLISHED BY INTERNATIONAL COLLABORATIVE ON NT PROBNP (ICON) STUDY (2006). AGE INDEPENDENT: <300 PG/ML HAS A 99% NEGATIVE PREDICTIVE VALUE FOR EXCLUDING ACUTE CHF <50 YEARS: >450 PG/ML IS CONSISTENT WITH ACUTE CHF 50-75 YEARS: >900 PG/ML IS CONSISTENT WITH ACUTE CHF >75 YEARS: >1800 PG/ML IS CONSISTENT WITH ACUTE CHF IN PATIENTS WITH RENAL INSUFFICIENCY (GFR <60), >1200 PG/ML YIELDS A DIAGNOSTIC SENSITIVITY AND SPECIFICITY OF 89% AND 72% FOR ACUTE CHF. 12/19/2024 4:34 PM CANDY MIXER us Deena Kong MD LABORATORY Final Result Performing Organization Address City/[facility]/ZIP Co de Phone Number [facility], [facility] [place] [address], [place] [phone] * TYPE & SCREEN (12/19/2024 4:34 PM CANDY MIXER) UNITS ORDERED 2 12/19/2024 5:40 PM CANDY MIXER [facility] ABO/RH O NEGATIVE 12/19/2024 5:24 PM CANDY MIXER [facility] ANTIBODY SCREEN NEGATIVE 5:24 PM CANDY MIXER [facility] SAMPLE EXPIRATION 12/22/2024,2359 12/19/2024 5:24 PM CANDY MIXER [facility] BLOOD UNIT NUMBER [id number] 12/19/2024 5:40 PM CANDY MIXER [facility] PRODUCT: PC LEUKO PHERE BAG2 12/19/2024 5:40 PM CANDY MIXER [facility] UNIT DIVISION 00 12/19/2024 5:40 PM CANDY MIXER [facility] BLOOD UNIT STATUS TRANSFUSED,FINAL 12/20/2024 1:16 AM CANDY MIXER [facility] ISSUE DATE/TIME [id number] 025 1:16 AM CANDY MIXER [facility] PRODUCT CODE [id number] 12/20/2024 1:16 AM CANDY MIXER [facility] ABO/RH Unit O NEG 12/20/2024 1:16 AM CANDY MIXER [facility] ABO/RH UNIT ISBT CODE 9500 12/20/2024 1:16 AM CANDY MIXER [facility] BLOOD UNIT EXPIRATION DATE [id number] 12/20/2024 1:16 AM CANDY MIXER [facility] TRANSFUSION STATUS OK TO TRANSFUSE 12/19/2024 5:40 PM CANDY MIXER [facility] CROSSMATCH COMPATIBLE 12/19/2024 5:40 PM CANDY MIXER [facility] BLOOD UNIT NUMBER [id number] 12/19/2024 5:40 PM CANDY MIXER [facility] PRODUCT: APHERESIS LRBC 12/19/2024 5:40 PM CANDY MIXER [facility] UNIT DIVISION 00 12/19/2024 5:40 PM CANDY MIXER [facility] BLOOD UNIT STATUS TRANSFUSED,FINAL 12/20/2024 1:16 AM CANDY MIXER [facility] ISSUE DATE/TIME [id number] 025 1:16 AM CANDY MIXER [facility] PRODUCT CODE [id number] 12/20/2024 1:16 AM CANDY MIXER [facility] ABO/RH Unit O NEG 12/20/2024 1:16 AM CANDY MIXER [facility] ABO/RH UNIT ISBT CODE 9500 12/20/2024 1:16 AM CANDY MIXER [facility] BLOOD UNIT EXPIRATION DATE [id number] 12/20/2024 1:16 AM CANDY MIXER [facility] TRANSFUSION STATUS OK TO TRANSFUSE 12/19/2024 5:40 PM CANDY MIXER [facility] CROSSMATCH COMPATIBLE 12/19/2024 5:40 PM CANDY MIXER [facility] 12/19/2024 4:34 PM CANDY MIXER us Deena Kong MD BLOOD BANK TEST ORDERABLES Fi nal Result [facility] [address] [place] [address], * XR CHEST PORTABLE (12/19/2024 4:26 PM CANDY MIXER) Anatomical Region Laterality Modality Chest Radiographic Zeinab ging 12/19/2024 4:33 PM CANDY MIXER Impressions 12/19/2024 4:37 PM CANDY MIXER IMPRESSION: 1. No acute cardiopulmonary process identified. 2. Stable borderline cardiac size. Ordered By: DEENA KONG Interpreted By: Jamie Carlos MD, 12/19/2024 4:33 PM Narrative 12/19/2024 4:37 PM CANDY MIXER [facility] [place] [address] Examination: Portable chest. Exam time: 1621 hours. Clinical history: Dyspnea. Chest discomfort. Comparison: 08/03/2024. Technique: AP upright view. Findings: Allowing for differences in projection and rotation, the cardiomediastinal silhouette is stable. The heart remains top normal in size to minimally enlarged. Pulmonary vascularity is within normal limits. Right subclavian transvenous pacemaker remains in place with stable positioning of its leads. No acute infiltrates or effusions are identified. The visualized bony thorax is stable. Procedure Note Jamie Carlos MD - 12/19/2024 [facility] [place] [address] Examination: Portable chest. Exam time: 1621 hours. Clinical history: Dyspnea. Chest discomfort. Comparison: 08/03/2024. Technique: AP upright view. Findings: Allowing for differences in projection and rotation, thecardiomediastinal silhouette is stable. The heart remains top normal insize to minimally enlarged. Pulmonary vascularity is within normal limits.Right subclavian transvenous pacemaker remains in place with stablepositioning of its leads. No acute infiltrates or effusions areidentified. The visualized bony thorax is stable. IMPRESSION: 1. No acute cardiopulmonary process identified. 2. Stable borderline cardiac size. Ordered By: DEENA KONG Interpreted By: Jamie Carlos MD, 12/19/2024 4:33 PM Deena Kong MD GENERAL IMAGING Final Result * ECG 12 lead (12/19/2024 4:04 PM CANDY MIXER) 12/19/2024 4:04 PM CANDY MIXER Narrative [facility] - 12/21/2024 8:46 AM CANDY MIXER [address] [place] [address] Test Date: 2024-12-19 Pat Name: [facility] Department: 3 Room: 330 Gender: Female Appraisal Analyst: : 1945 Requested By: DEENA KONG Order Number: [id number] Reading MD: Damion Cornejo Measurements Intervals [place] Rate: 88 P: 0 NV: 0 QRS: -49 QRSD: 114 T: 53 QT: 418 QTc: 507 Interpretive Statements ATRIAL FIBRILLATION PATTERN CONSISTENT WITH PULMONARY DISEASE LEFT ANTERIOR FASCICULAR BLOCK MINIMAL ST DEPRESSION Y MIXER Procedure Note Damion Cornejo MD - 12/21/[address] [place] [address] Test Date: 2024-12-19 Pat Name: [facility] Department: 3 Room: 330 Gender: Female Appraisal Analyst: : 1945 Requested By: DEENA KONG Order Number: [id number] Reading MD: Damion Cornejo Measurements Intervals [place] Rate: 88 P: 0 NV: 0 QRS: -49 QRSD: 114 T: 53 QT: 418 QTc: 507 Interpretive Statements ATRIAL FIBRILLATION PATTERN CONSISTENT WITH PULMONARY DISEASE LEFT ANTERIOR FASCICULAR BLOCK MINIMAL ST DEPRESSION Y MIXER Deena Kong MD ECG ORDERABLES Final Result Performing Organization Address [facility] Co de Phone Number [facility] * (ABNORMAL) TSH W/REFLEX (12/16/2024 2:57 PM CANDY MIXER) TSH 7.266(H) 0.358 - 3.740 uIU/ML 12/16/2024 4:35 PM CANDY MIXER [facility] Comment: ASSAY PERFORMED BY CHEMILUMINESCENT IMMUNOASSAY METHODOLOGY USING InforSense DIMENSION REAGENT. PATIENT RESULTS DETERMINED BY ASSAYS FROM DIFFERENT MANUFACTURERS AND/OR BY DIFFERENT METHODS MAY NOT BE COMPARABLE. 12/16/2024 2:57 PM CANDY MIXER Chanel Ponce DATA CONVERSION ANALYST LABORATORY Final Result Performing Organization Address [facility] de Phone Number [facility] [address] [place] [address], * (ABNORMAL) COMPREHENSIVE METABOLIC PANEL (12/16/2024 2:57 PM CANDY MIXER) SODIUM S/P/B 137 136 - 145 MMOL/L 12/16/2024 4:11 PM CANDY MIXER [facility] POTASSIUM S/P/B 4.2 3.5 - 5.1 MMOL/L 12/16/2024 4:11 PM CANDY MIXER [facility] CHLORIDE S/P/B 97(L) 98 - 107 MMOL/L 12/16/2024 4:11 PM CANDY MIXER [facility] CO2 29.5 21.0 - 32.0 MMOL/L 12/16/2024 4:11 PM CANDY MIXER [facility] GLUCOSE 199(H) 70 - 99 MG/DL 12/16/2024 4:11 PM [facility] Comment: FASTING GLUCOSE 100 TO 125 MG/DL IS CONSISTENT WITH IMPAIRED FASTING GLUCOSE. FASTING GLUCOSE >125 MG/DL IS CONSISTENT WITH DIABETES. RANDOM GLUCOSE >200 MG/DL WITH HYPERGLYCEMIC SYMPTOMS IS CONSISTENT WITH DIABETES. PER ADA GUIDELINES BUN 40(H) 6 - 24 MG/DL 12/16/2024 4:11 PM [facility] CREATININE S/P/B 1.68(H) 0.55 - 1.02 MG/DL 12/16/2024 4:11 PM [facility] CALCIUM S/P/B 9.0 8.4 - 10.5 MG/DL 12/16/2024 4:11 PM [facility] BILIRUBIN TOTAL S/P/B 0.4 0.2 - 1.0 MG/DL 12/16/2024 4:11 PM [facility] Comment: THIS ASSAY IS NOT RECOMMENDED FOR PATIENTS UNDERGOING TREATMENT WITH ELTROMBOPAG DUE TO THE POTENTIAL FOR FALSELY ELEVATED RESULTS. ALKALINE PHOSPHATASE S/P/B 134 55 - 142 U/L 12/16/2024 4:11 PM [facility] AST 60(H) 15 - 37 U/L 12/16/2024 4:11 PM [facility] ALT 44 14 - 59 U/L 12/16/2024 4:11 PM [facility] TOTAL PROTEIN S/P/B 6.8 6.4 - 8.2 G/DL 12/16/2024 4:11 PM [facility] ALBUMIN S/P/B 3.2(L) 3.4 - 5.0 G/DL 12/16/2024 4:11 PM [facility] ANION GAP 10.5 5.0 - 15.0 MMOL/L 12/16/2024 4:11 PM [facility] OSMOLALITY (CALC) 299 MOSM/KG 025 4:11 PM [facility] Comment:REFERENCE RANGE NOT ESTABLISHED GFR ESTIMATE 30(L) >89 ML/MIN/1. 73 M2 12/16/2024 4:11 PM [facility] GFR NOTES GFR REFERENCE S: 12/16/2024 4:11 PM CANDY MIXER [facility] Comment: THE ESTIMATED GFR IS CALCULATED USING THE 2020 CKD-EPI EQUATION. THE FOLLOWING CATEGORIES FOR GRADING RENAL FUNCTION ARE RECOMMENDED BY THE INTERNATIONAL SOCIETY OF NEPHROLOGY (KDIGO 2012 CLINICAL PRACTICE GUIDELINE). G1,NORMAL OR HIGH: >89 ml/min/1.73 m2 G2,MILDLY DECREASED: 60-89 ml/min/1.73 m2 G3A,MILDLY TO MODERATELY DECREASED: 45-59 ml/min/1.73 m2 G3B,MODERATELY TO SEVERELY DECREASED: 30-44 ml/min/1.73 m2 G4,SEVERELY DECREASED: 15-29 ml/min/1.73 m2 G5,KIDNEY FAILURE: <15 ml/min/1.73 m2 12/16/2024 2:57 PM CANDY MIXER us Chanel Ponce DATA CONVERSION ANALYST LABORATORY Final Result Performing Organization Address City/[facility]/ZIP Co de Phone Number [facility] [address] [place] [address], * THYROXINE, FREE (FT4) (12/16/2024 2:57 PM CANDY MIXER) FREE T4 1.40 0.76 - 1.46 NG/DL 12/16/2024 5:00 PM CANDY MIXER [facility] 12/16/2024 2:57 PM CANDY MIXER Chanel Ponce DATA CONVERSION ANALYST LABORATORY Final Result Performing Organization Address City/[facility]/ZIP Co de Phone Number [facility] [address] [place] [address], * Pathology (11/15/2024 12:00 AM CANDY MIXER) Only the most recent of2 resultswithin the time period is included. PATHOLOGY [facility] Department of Laboratory Medicine [address] [place] [address] , extension [phone] Pathology Report Surgical Pathology Report Name: WALKER HILLIARD Specimen #: [id number] Age: 7 1945 (Age: 79) Location: [facility] Sex: F Procedure Date: 11/15/2024 Hospital #: [id number] Date Received: 11/15/2024 Date Reported: 11/17/2024 Provider: LORIN CONTRERAS III, MD Source: Bladder, tumor Clinical History: Malignant neoplasm of lateral wall of urinary bladder. FINAL DIAGNOSIS: Bladder, tumor, transurethral resection: -Noninvasive low-grade papillary urothelial carcinoma. -Muscularis propria is present and negative for neoplasia. IC: ALEXI Gross Description: Received in formalin, labeled with a patient label and as bladder tumor are 3 pieces of pink-elizalde papillary tissue ranging from 0.4 to 0.6 cm. The specimen is entirely submitted in cassette 1. Gross examination (when applicable) was performed at [facility], [address] [place] [address]. This case was interpreted and signed out at [facility], [address] [place] [address]. Electronically Signed Out Roshan Sharma M.D. [facility] TISSUE URINARY BLADDER STRUCTURE / Unknown 11/15/2024 7:56 AM CANDY MIXER us Lorin Contreras III, MD PATHOLOGY/CYTOLOGY ORDER KE Final Result [facility] [address] [place] [address], [phone] * H PYLORI UREASE (11/01/2024 9:44 AM CANDY MIXER) SPEC DESCRIPTION GASTRIC BIOPSY 11/01/2024 9:47 AM CANDY MIXER [facility] SPECIAL REQUESTS NO SPECIAL REQUEST 11/01/2024 9:47 AM CANDY MIXER [facility] DIRECT EXAM PRESUMPTIVE NEGATIVE FOR H. PYLORI 11/02/2024 10:10 AM CANDY MIXER [facility] TISSUE GASTRIC BIOPSY SPECIMEN / Unknown 11/01/2024 9:39 AM CANDY MIXER Bernardo Brandon MD MICROBIOLOGY - GENERAL ORDERA BLES Final Result [facility] [address] [place] [address], * ENDOSCOPY (SCAN ORDER) (11/01/2024 7:16 AM CANDY MIXER) Bernardo Brandon MD SCANNING Final Result * (ABNORMAL) HEMOGLOBIN, GLYCOSYLATED (09/01/2024 9:30 AM CANDY MIXER) HGB A1C 7.1(H) <5.7 % 09/02/2024 1:39 PM CANDY MIXER [facility] ESTIMATED AVG GLUCOSE 157(H) 74 - 114 MG/DL 09/02/2024 1:39 PM CANDY MIXER [facility] 09/01/2024 9:30 AM CANDY MIXER Lopez Pool MD LABORATORY Final Result [facility] [address] [place] [address], [place] [phone] * LIPID PANEL (09/01/2024 9:30 AM CANDY MIXER) CHOLESTEROL 233 MG/DL 09/02/2024 1:35 PM CANDY MIXER [facility] Comment:BORDERLINE HIGH: 200 -239 TRIGLYCERIDES 278 MG/DL 09/02/2024 1:35 PM CANDY MIXER [facility] Comment:200-499 HIGH HDL 51 >49 MG/DL 09/02/2024 1:35 PM CANDY MIXER [facility] LDL-C 126 MG/DL 09/02/2024 1:35 PM CANDY MIXER [facility] Comment:100-129 NEAR OR ABOV E OPTIMAL VLDL CALCULATION 56 MG/DL 09/02/20 24 1:35 PM CANDY MIXER [facility] Comment:REFERENCE RANGE NOT ESTABLISHED CHOL/HDL RATIO 4.6 09/02/2024 1:35 PM CANDY MIXER [facility] Comment:REFERENCE RANGE NOT ESTABLISHED LDL/HDL 2.5 09/02/2024 1:35 PM CANDY MIXER [facility] Comment:REFERENCE RANGE NOT ESTABLISHED NON HDL CHOLESTEROL 182 MG/DL 09/02/2024 1:35 PM CANDY MIXER [facility] Comment:REFERENCE RANGE NOT ESTABLISHED 09/01/2024 9:30 AM CANDY MIXER us Lopez Pool MD LABORATORY Final Result [facility] [address] [place] [address], [phone] * BONE DENSITY/DEXA (04/15/2022 9:16 AM CDT) Anatomical Region Laterality Modality Bone Bone Density 04/16/2022 1:04 PM CDT Impressions 04/16/2022 1:06 PM CDT Impression: BMD measured at AP lumbar spine, left total hip and left femoral neck at WHO category level of normal. Ordered By: CHRIS KOENIG Interpreted By: Hema Mauricio MD, 04/16/2022 1:04 PM Narrative 04/16/2022 1:06 PM CDT Examination: DEXA Bone densitometry EXAM DATE: 04/15/2022 9:16 AM Clinical history: Postmenopausal. Calcium supplementation. Vitamin D use. Prior hysterectomy. Technique: DEXA bone minimal density evaluation was performed in the AP projection over the lumbar spine and over both hips in the AP projection utilizing standard imaging techniques. Assessment: The BMD measured at the AP spine L1-L4 is 1.148 g/cm? with a T-score of 0.9 and a Z-Score of 3.5. Bone density is up to 10% below young normal. This patient is considered normal according to the World Health Organization (WHO) criteria. Fracture risk is low. The BMD measured at the femur total left is 0.982 g/cm? with a T-score of 0.3 and a Z-Score of 2.3. Bone density is up to 10% below young normal. This patient is considered normal according to the World Health Organization (WHO) criteria. Fracture risk is low. The BMD measured at the left femoral neck is 0.824 g/sq cm resulting in a T score of -0.2 and a Z score of 2.0, values at the WHO category level of normal. Recommendations: All patients should ensure an adequate intake of dietary calcium and vitamin D. The NOF recommend adults under the age of 50 need 1000 mg of calcium and 400-800 IU of vitamin D daily. Effective therapy for the prevention and treatment of osteoporosis include biphosphonates. Follow-up: People with diagnosed cases of osteoporosis or at high risk for fracture should have regular bone mineral density test. For patients eligible for Medicare, routine testing is allowed once every 2 years. Testing frequency can be increased to one year for patients who have rapidly progressing disease, those who are receiving or discontinuing medical therapy to restore bone mass, or have additional risk factors. Based on these results, a followup exam is recommended in no earlier than 2 years. Procedure Note Hema Mauricio MD - 04/16/2022 Examination: DEXA Bone densitometry EXAM DATE: 04/15/2022 9:16 AM Clinical history: Postmenopausal. Calcium supplementation. Vitamin D use.Prior hysterectomy. Technique: DEXA bone minimal density evaluation was performed in the APprojection over the lumbar spine and over both hips in the AP projectionutilizing standard imaging techniques. Assessment: The BMD measured at the AP spine L1-L4 is 1.148 g/cm? with a T-score of0.9 and a Z-Score of 3.5. Bone density is up to 10% below young normal.This patient is considered normal according to the World HealthOrganization (WHO) criteria. Fracture risk is low. The BMD measured at the femur total left is 0.982 g/cm? with a T-score of0.3 and a Z-Score of 2.3. Bone density is up to 10% below young normal.This patient is considered normal according to the World HealthOrganization (WHO) criteria. Fracture risk is low. The BMD measured at the left femoral neck is 0.824 g/sq cm resulting in aT score of -0.2 and a Z score of 2.0, values at the WHO category level ofnormal. Recommendations: All patients should ensure an adequate intake of dietary calcium andvitamin D. The NOF recommend adults under the age of 50 need 1000 mg ofcalcium and 400-800 IU of vitamin D daily. Effective therapy for theprevention and treatment of osteoporosis include biphosphonates. Follow-up: People with diagnosed cases of osteoporosis or at high risk for fractureshould have regular bone mineral density test. For patients eligible forMedicare, routine testing is allowed once every 2 years. Testing frequencycan be increased to one year for patients who have rapidly progressingdisease, those who are receiving or discontinuing medical therapy torestore bone mass, or have additional risk factors. Based on these results, a followup exam is recommended in no earlier than2 years. Impression: BMD measured at AP lumbar spine, left total hip and left femoral neck atWHO category level of normal. Ordered By: CHRSI KOENIG Interpreted By: Hema Mauricio MD, 04/16/2022 1:04 PM Chris Koenig NP DEXA Final Result from Last 3 Months or Most Recently Relevant to Health Maintenance Insurance MEDICARE [facility] MEDICAID Advance Directives Documents on File Type Date Recorded Patient Rn Concurrent Review Expl anation Power of Slasher Runner Advance Directives and Living Will 12/21/2024 9:03 AM POA for Healthcare Advance Directives and Living Will 06/21/2024 9:15 AM 05/12/14 DNR Advance Directives and Living Will 04/13/2019 10:34 AM 05/11/14 DNR Advance Directives and Living Will 01/02/2018 ADVANCE DIRECTIVE Advance Directives and Living Will 01/02/2018 ADVANCE DIRECTIVE Advance Directives and Living Will 01/02/2018 ADVANCE DIRECTIVE Advance Directives and Living Will 01/02/2018 SHORT FORM POWER OF VOICE COACH Advance Directives and Living Will 01/02/2018 ADVANCE DIRECTIVE Advance Directives and Living Will 01/02/2018 ADVANCE DIRECTIVE Advance Directives and Living Will 01/02/2018 ADVANCE DIRECTIVE Advance Directives and Living Will 01/02/2018 SHORT FORM POWER OF VOICE COACH Advance Directives and Living Will 01/02/2018 ADVANCE DIRECTIVE Advance Directives and Living Will 01/02/2018 ADVANCE DIRECTIVE Advance Directives and Living Will 01/02/2018 ADVANCE DIRECTIVE Advance Directives and Living Will 01/02/2018 SHORT FORM POWER OF VOICE COACH Advance Directives and Living Will 09/08/2017 ADVANCE DIRECTIVE Advance Directives and Living Will 09/08/2017 ADVANCE DIRECTIVE Advance Directives and Living Will 09/08/2017 ADVANCE DIRECTIVE Advance Directives and Living Will 09/08/2017 ADVANCE DIRECTIVE Advance Directives and Living Will 09/08/2017 SHORT FORM POWER OF VOICE COACH Advance Directives and Living Will 06/18/2015 ADVANCE DIRECTIVE Advance Directives and Living Will 06/18/2015 ADVANCE DIRECTIVE Advance Directives and Living Will 06/18/2015 ADVANCE DIRECTIVE Advance Directives and Living Will 06/18/2015 ADVANCE DIRECTIVE Advance Directives and Living Will 06/18/2015 SHORT FORM POWER OF VOICE COACH Advance Directives and Living Will 06/05/2015 ADVANCE DIRECTIVE Advance Directives and Living Will 06/05/2015 ADVANCE DIRECTIVE Advance Directives and Living Will 06/05/2015 ADVANCE DIRECTIVE Advance Directives and Living Will 06/05/2015 ADVANCE DIRECTIVE Advance Directives and Living Will 06/05/2015 SHORT FORM POWER OF VOICE COACH Advance Directives and Living Will 05/28/2015 ADVANCE DIRECTIVE Advance Directives and Living Will 05/28/2015 ADVANCE DIRECTIVE Advance Directives and Living Will 05/28/2015 ADVANCE DIRECTIVE Advance Directives and Living Will 05/28/2015 ADVANCE DIRECTIVE Advance Directives and Living Will 05/28/2015 SHORT FORM POWER OF VOICE COACH Advance Directives and Living Will 05/09/2015 ADVANCE DIRECTIVE Advance Directives and Living Will 05/09/2015 ADVANCE DIRECTIVE Advance Directives and Living Will 05/09/2015 ADVANCE DIRECTIVE Advance Directives and Living Will 05/09/2015 ADVANCE DIRECTIVE Advance Directives and Living Will 05/09/2015 SHORT FORM POWER OF VOICE COACH Advance Directives and Living Will 05/07/2015 ADVANCE DIRECTIVE Advance Directives and Living Will 05/07/2015 ADVANCE DIRECTIVE Advance Directives and Living Will 05/07/2015 ADVANCE DIRECTIVE Advance Directives and Living Will 05/07/2015 ADVANCE DIRECTIVE Advance Directives and Living Will 05/07/2015 SHORT FORM POWER OF VOICE COACH Advance Directives and Living Will 05/02/2015 ADVANCE DIRECTIVE Advance Directives and Living Will 05/02/2015 ADVANCE DIRECTIVE Advance Directives and Living Will 05/02/2015 ADVANCE DIRECTIVE Advance Directives and Living Will 05/02/2015 ADVANCE DIRECTIVE Advance Directives and Living Will 05/02/2015 SHORT FORM POWER OF VOICE COACH Advance Directives and Living Will 04/25/2015 ADVANCE DIRECTIVE Advance Directives and Living Will 04/25/2015 ADVANCE DIRECTIVE Advance Directives and Living Will 04/25/2015 ADVANCE DIRECTIVE Advance Directives and Living Will 04/25/2015 SHORT FORM POWER OF VOICE COACH Advance Directives and Living Will 04/23/2015 12:00 AM POWER OF VOICE COACH Advance Directives and Living Will 04/17/2015 12:00 AM POWER OF VOICE COACH Advance Directives and Living Will 04/16/2015 ADVANCE DIRECTIVE Advance Directives and Living Will 04/16/2015 ADVANCE DIRECTIVE Advance Directives and Living Will 04/16/2015 ADVANCE DIRECTIVE Advance Directives and Living Will 04/16/2015 SHORT FORM POWER OF VOICE COACH Advance Directives and Living Will 04/12/2015 ADVANCE DIRECTIVE Advance Directives and Living Will 04/12/2015 ADVANCE DIRECTIVE Advance Directives and Living Will 04/12/2015 ADVANCE DIRECTIVE Advance Directives and Living Will 04/12/2015 ADVANCE DIRECTIVE Advance Directives and Living Will 04/12/2015 SHORT FORM POWER OF VOICE COACH Advance Directives and Living Will 03/14/2015 ADVANCE DIRECTIVE Advance Directives and Living Will 03/14/2015 ADVANCE DIRECTIVE Advance Directives and Living Will 03/14/2015 ADVANCE DIRECTIVE Advance Directives and Living Will 03/14/2015 SHORT FORM POWER OF VOICE COACH Advance Directives and Living Will 03/04/2015 ADVANCE DIRECTIVE Advance Directives and Living Will 03/04/2015 ADVANCE DIRECTIVE Advance Directives and Living Will 03/04/2015 ADVANCE DIRECTIVE Advance Directives and Living Will 03/04/2015 SHORT FORM POWER OF VOICE COACH Advance Directives and Living Will 02/27/2015 ADVANCE DIRECTIVE Advance Directives and Living Will 02/27/2015 ADVANCE DIRECTIVE Advance Directives and Living Will 02/27/2015 ADVANCE DIRECTIVE Advance Directives and Living Will 02/27/2015 SHORT FORM POWER OF VOICE COACH Advance Directives and Living Will 02/06/2015 ADVANCE DIRECTIVE Advance Directives and Living Will 02/06/2015 ADVANCE DIRECTIVE Advance Directives and Living Will 02/06/2015 ADVANCE DIRECTIVE Advance Directives and Living Will 01/11/2015 ADVANCE DIRECTIVE Advance Directives and Living Will 01/11/2015 ADVANCE DIRECTIVE Advance Directives and Living Will 01/11/2015 ADVANCE DIRECTIVE Advance Directives and Living Will 10/10/2014 ADVANCE DIRECTIVE Advance Directives and Living Will 10/10/2014 ADVANCE DIRECTIVE Advance Directives and Living Will 10/10/2014 ADVANCE DIRECTIVE Advance Directives and Living Will 05/23/2014 ADVANCE DIRECTIVE Advance Directives and Living Will 05/23/2014 ADVANCE DIRECTIVE Advance Directives and Living Will 05/23/2014 ADVANCE DIRECTIVE Advance Directives and Living Will 05/11/2014 ADVANCE DIRECTIVE Advance Directives and Living Will 05/11/2014 ADVANCE DIRECTIVE Advance Directives and Living Will 05/11/2014 ADVANCE DIRECTIVE * DNR (Latest Code Status on File) Date Activated Date Inactivated Comments 12/19/2024 6:39 PM 12/21/2024 10:33 AM * DNR Date Activated Date Inactivated Comments 12/19/2024 6:36 PM 12/19/2024 6:39 PM * DNR Date Activated Date Inactivated Comments 06/18/2024 2:42 PM 06/19/2024 1:30 PM * Full Code Date Activated Date Inactivated Comments 11/04/2023 8:47 AM 03/06/2024 12:25 PM * Full Code Date Activated Date Inactivated Comments 11/03/2023 2:04 PM 11/04/2023 8:47 AM Care Teams Sewing Teacher Relationship Specialty Start Date End Date Lopez Pool MD [address] [place] [phone] PCP - General FAMILY PRACTICE 03/21/22 Lopez Pool MD [address] [place] [phone] FAMILY PRACTICE 03/21/22
--- OUTSIDE RECORDS SUMMARY | 2025-01-04 14:14 | XMS_ITS | Encounter Summary ---
Author Organization [facility] Address [address] [place] [address] Phone Care Team Providers Care Eradicator Name Role Phone Elmer Wallace MD Primary Care Provider [phone] Hema Castaneda MD Unavailable [phone] Colleen Bain MD Unavailable [phone] Rosette Espinoza MD Unavailable [phone] Jenni Hartley RN Unavailable Unavailable Meenu Jones NP Unavailable [phone] Lopez Pool MD Primary Care Provider [phone] Jacqueline Schaeffer RN Unavailable Unavailable Jenni Hartley RN Unavailable Unavailable Anat Hutchison Unavailable Unavailable Encounter Details Date Type Department Care Team (Latest Contact Info) Description 05/28/2019 Orders Only [facility] Scanning, Provider Social History Tobacco Use Types Packs/Day Years Used Date Smoking Tobacco: Former Cigarettes Q uit: 2006 Smokeless Tobacco: Never Alcohol Use Standard Drinks/Week Comments No 0 (1 standard drink = 0.6 oz pur e alcohol) minimal Comments Unknown Sex and Gender Information Value Date Recorded Sex Assigned at Not on file 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 Gender Identity Female 07/13/2018 9:28 AM CDT Sexual Orientation Not on file 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 Not on file Not on file Not on file documented as of this encounter Plan of Treatment Upcoming Encounters Date Type Department Care Team (Latest Contact Info) Description 02/10/2025 7:30 AM CDT Hospital Encounter [facility] [place] [address] [place] [phone] Fred SullivanRadio Sales Account Executive, [address] [place] [id number] Patricia Smith MD [address] [facility] [address] [place], [place] [id number] Atrial fibrillation, unspecified type (HCC) 02/10/2025 7:30 AM CDT - 02/10/2025 8:05 AM CDT Surgery [facility] [address] [phone] Patricia Smith MD [address] [facility] [address] [place] [phone] CARDIOVERSION documented as of this encounter Procedures Procedure Name Priority Date/Time Associated Diagnosis Comments SCAN - LABS 05/28/2019 documented in this encounter Results * SCAN - LABS (05/28/2019) us Provider Scanning Final Result documented in this encounter Visit Diagnoses Not on filedocumented in this encounter Additional Health Concerns Infection Onset Date Last Indicated Resolved Time COVID: Suspected 03/13/2022 03/13/2022 03/13/2022 6:26 PM CDT documented as of this encounter Care Teams Eradicator Relationship Specialty Start Date End Date Elmer Wallace MD PCP - General 02/09/17 03/17/22 Lopez Pool MD PCP - General Family Medicine 03/18/22 Hema Castaneda MD Consulting Physician Cardiology 01/11/19 Colleen Bain MD Referring Physician Endocrinology Diabetes & Metabolism 04/07/19 Rosette Espinoza MD Referring Physician Cardiology 04/07/19 Jenni Hartley, RN Registered Nurse Cardiology 04/02/21 04/22/21 Meenu Jones NP Hearing Aid Assistant Cardiology 04/02/21 04/22/21 Jacqueline Schaeffer, modeling teacher Failure Coordinator Cardiology 07/13/24 Jenni Hartley, RN Registered Nurse 07/13/24 08/01/24 Anat Hutchison 07/13/24 documented as of this encounter
--- OUTSIDE RECORDS SUMMARY | 2025-01-04 14:14 | XMS_ITS | Patient Health Record ---
Author Organization [facility] Address [address] [place], [place] [id number] Care Team Providers Care Content Publisher Name Role Phone INESSA Dugan Unavailable [phone] Lopez Pool Unavailable Unavailable JOVANNI CAST Unavailable [phone] PEDRITO MUÑIZ Unavailable [phone] Allergies Allergen (clinical drug ingredient) Drug/Non Drug Allergy documented on EMR Reaction Allergy Type Onset Date Status Non-steroidal anti-inflammatory agent (FN) NSAIDs Unknown Drug Allergy Active Reason For Referral No Information Medications Medication SIG (Take, Route, Frequency, Duration) Notes Start Date End Date Status ferrous sulfate 325 MG Oral Tablet ORAL ferrous sulfate 325 MG Oral TabletOriginal Medicationferrous sulfate 325 MG Oral Tablet *Reorder from [employer] for eRx and Interaction Alerts* 6 Not-Takin g Furosemide 40 MG 1 tablet Orally Once a day Active sertraline 100 MG Oral Tablet ORAL sertraline 100 MG Oral TabletOriginal Medicationsertraline 100 MG Oral Tablet *Reorder from [employer] for eRx and Interaction Alerts* 6 Active Iron 325 (65 Fe) MG 1 tablet Orally Three times a Week Active metformin hydrochloride 500 MG Oral Tablet ORAL metformin hydrochloride 500 MG Oral TabletOriginal Medicationmetformin hydrochloride 500 MG Oral Tablet *Reorder from [employer] for eRx and Interaction Alerts* 6 Active Amiodarone HCl 200 MG 1 tablet Orally Once a day Active Basaglar KwikPen 100 UNIT/ML as directed Subcutaneous Active Lisinopril 40 MG Oral Tablet ORAL lisinopril 40 MG Oral TabletOriginal Medicationlisinopril 40 MG Oral Tablet *Reorder from [employer] for eRx and Interaction Alerts* 6 Not-Takin g Warfarin Sodium 2 MG Oral Tablet ORAL warfarin sodium 2 MG Oral TabletOriginal Medicationwarfarin sodium 2 MG Oral Tablet *Reorder from [employer] for eRx and Interaction Alerts* 6 Active Trelegy Ellipta 100-62.5-25 MCG/ACT 1 puff Inhalation Once a day Active aspirin 81 MG Oral Tablet ORAL aspirin 81 MG Oral TabletOriginal Medicationaspirin 81 MG Oral Tablet *Reorder from [employer] for eRx and Interaction Alerts* 6 Not-Takin g Anastrozole 1 MG Oral Tablet ORAL anastrozole 1 MG Oral TabletOriginal Medicationanastrozole 1 MG Oral Tablet *Reorder from [employer] for eRx and Interaction Alerts* 6 Not-Takin g Magnesium 400 MG as directed Orally Active calcium carbonate 600 MG / ergocalciferol 200 UNT Oral Tablet ORAL calcium carbonate 600 MG / ergocalciferol 200 UNT Oral TabletOriginal Medicationcalcium carbonate 600 MG / ergocalciferol 200 UNT Oral Tablet *Reorder from [employer] for eRx and Interaction Alerts* 6 Active Spironolactone 25 MG 1 tablet Orally Active atorvastatin 40 MG Oral Tablet ORAL atorvastatin 40 MG Oral TabletOriginal Medicationatorvastatin 40 MG Oral Tablet *Reorder from [employer] for eRx and Interaction Alerts* 6 Not-Takin g Levothyroxine Sodium 100 MCG 1 tablet in the morning on an empty stomach Orally Once a day Active Vital Signs Height-cm 167.64 cm 01/28/2024 Weight-kg 113.4 kg 01/28/2024 Height 66 in 01/28/2024 Weight 250 lbs 01/28/2024 BMI 40.35 kg/m2 01/28/2024 Encounters Encounter Location Date Provider Diagnosis [address] [id number] 01/28/2024 PEDRITO MUÑIZ Other hammer toe(s) (acquired), right foot M20.41 ; Tinea unguium B35.1 ; Other hammer toe(s) (acquired), left foot M20.42 ; Pain in right toe(s) M79.674 ; Pain in left toe(s) M79.675 ; Unspecified atherosclerosis of [place] arteries of extremities, bilateral legs I70.203 ; Acquired keratosis [keratoderma] palmaris et plantaris L85.1 and Type 2 diabetes mellitus with diabetic peripheral angiopathy without gangrene E11.[address] [id number] 04/07/2024 PEDRITO MUÑIZ Other hammer toe(s) (acquired), right foot M20.41 ; Tinea unguium B35.1 ; Other hammer toe(s) (acquired), left foot M20.42 ; Pain in right toe(s) M79.674 ; Pain in left toe(s) M79.675 ; Unspecified atherosclerosis of [place] arteries of extremities, bilateral legs I70.203 ; Acquired keratosis [keratoderma] palmaris et plantaris L85.1 and Type 2 diabetes mellitus with diabetic peripheral angiopathy without gangrene E11.[address] [id number] 06/09/2024 PEDRITO MUÑIZ Other hammer toe(s) (acquired), right foot M20.41 ; Tinea unguium B35.1 ; Other hammer toe(s) (acquired), left foot M20.42 ; Pain in right toe(s) M79.674 ; Pain in left toe(s) M79.675 ; Unspecified atherosclerosis of [place] arteries of extremities, bilateral legs I70.203 ; Acquired keratosis [keratoderma] palmaris et plantaris L85.1 and Type 2 diabetes mellitus with diabetic peripheral angiopathy without gangrene E11.[address] [id number] 08/11/2024 PEDRITO MUÑIZ Other hammer toe(s) (acquired), right foot M20.41 ; Tinea unguium B35.1 ; Other hammer toe(s) (acquired), left foot M20.42 ; Pain in right toe(s) M79.674 ; Pain in left toe(s) M79.675 ; Unspecified atherosclerosis of [place] arteries of extremities, bilateral legs I70.203 ; Acquired keratosis [keratoderma] palmaris et plantaris L85.1 and Type 2 diabetes mellitus with diabetic peripheral angiopathy without gangrene E11.51 [facility] [address] [place], [place] [id number] 11/03/2024 JOVANNI ACST Tinea unguium B35.1 ; Pain in right foot M79.671 ; Pain in left foot M79.672 ; Atherosclerosis of white [place] arteries of extremities with intermittent claudication, bilateral legs I70.213 ; Acquired keratosis [keratoderma] palmaris et plantaris L85.1 and Type 2 diabetes mellitus with other circulatory complications E11.59 Assessments Encounter Date Diagnosis (ICD Code) Assessment Notes Treatment Notes Treatment Clinical Notes Section Notes 01/28/2024 Tinea unguium (ICD-10 - B35.1) Aseptic debridement of elongated thickened nails x 10 using sterile nippers, nails were debrided in length and thickness by 30% utilizing a nail nipper without incident. The patient was educated regarding all treatment options that include topical and oral antifungal treatments. I discussed the options of taking a sample of the nail to confirm diagnosis. Nail clippings were not sent for pathology analysis. The patient was educated why and how the fungal infection evolved in their feet and the patient was given information regarding how to prevent further infection. The patient was told to keep feet dry and change socks. The patient was told to be careful with old shoes and excessive sweating. The patient was educated regarding both OTC and prescription treatments. 01/28/2024 Other hammer toe(s) (acquired), right foot (ICD-10 - M20.41) The patient was educated regarding how to mechanically stabilize their deformity. The patient was given education about shoe recommendations specific for the condition. The patient was educated about custom orthotics and how appropriate shoes and orthotics can prevent further worsening of the deformity. The patient was educated about how bad shoe habits can worsen the condition. NSAIDS, P.T., injections and other conservative treatments were discussed. Both surgical and non surgical treatments were discussed, but conservative options were emphasized. 04/07/2024 Tinea unguium (ICD-10 - B35.1) Aseptic debridement of elongated thickened nails x 10 using sterile nippers, nails were debrided in length and thickness by 30% utilizing a nail nipper without incident. The patient was educated regarding all treatment options that include topical and oral antifungal treatments. I discussed the options of taking a sample of the nail to confirm diagnosis. Nail clippings were not sent for pathology analysis. The patient was educated why and how the fungal infection evolved in their feet and the patient was given information regarding how to prevent further infection. The patient was told to keep feet dry and change socks. The patient was told to be careful with old shoes and excessive sweating. The patient was educated regarding both OTC and prescription treatments. 04/07/2024 Other hammer toe(s) (acquired), right foot (ICD-10 - M20.41) The patient was educated regarding how to mechanically stabilize their deformity. The patient was given education about shoe recommendations specific for the condition. The patient was educated about custom orthotics and how appropriate shoes and orthotics can prevent further worsening of the deformity. The patient was educated about how bad shoe habits can worsen the condition. NSAIDS, P.T., injections and other conservative treatments were discussed. Both surgical and non surgical treatments were discussed, but conservative options were emphasized. 06/09/2024 Tinea unguium (ICD-10 - B35.1) Aseptic debridement of elongated thickened nails x 10 using sterile nippers, nails were debrided in length and thickness by 30% utilizing a nail nipper without incident. The patient was educated regarding all treatment options that include topical and oral antifungal treatments. I discussed the options of taking a sample of the nail to confirm diagnosis. Nail clippings were not sent for pathology analysis. The patient was educated why and how the fungal infection evolved in their feet and the patient was given information regarding how to prevent further infection. The patient was told to keep feet dry and change socks. The patient was told to be careful with old shoes and excessive sweating. The patient was educated regarding both OTC and prescription treatments. 06/09/2024 Other hammer toe(s) (acquired), right foot (ICD-10 - M20.41) The patient was educated regarding how to mechanically stabilize their deformity. The patient was given education about shoe recommendations specific for the condition. The patient was educated about custom orthotics and how appropriate shoes and orthotics can prevent further worsening of the deformity. The patient was educated about how bad shoe habits can worsen the condition. NSAIDS, P.T., injections and other conservative treatments were discussed. Both surgical and non surgical treatments were discussed, but conservative options were emphasized. 08/11/2024 Tinea unguium (ICD-10 - B35.1) Aseptic debridement of elongated thickened nails x 10 using sterile nippers, nails were debrided in length and thickness by 30% utilizing a nail nipper without incident. The patient was educated regarding all treatment options that include topical and oral antifungal treatments. I discussed the options of taking a sample of the nail to confirm diagnosis. Nail clippings were not sent for pathology analysis. The patient was educated why and how the fungal infection evolved in their feet and the patient was given information regarding how to prevent further infection. The patient was told to keep feet dry and change socks. The patient was told to be careful with old shoes and excessive sweating. The patient was educated regarding both OTC and prescription treatments. 08/11/2024 Other hammer toe(s) (acquired), right foot (ICD-10 - M20.41) The patient was educated regarding how to mechanically stabilize their deformity. The patient was given education about shoe recommendations specific for the condition. The patient was educated about custom orthotics and how appropriate shoes and orthotics can prevent further worsening of the deformity. The patient was educated about how bad shoe habits can worsen the condition. NSAIDS, P.T., injections and other conservative treatments were discussed. Both surgical and non surgical treatments were discussed, but conservative options were emphasized. 11/03/2024 Tinea unguium (ICD-10 - B35.1) Nails 1-5 Bilateral were debrided extensively with nail nippers and emery board, reducing length and girth to pink healthy tissue with any subungual debris and necrotic tissue removed 11/03/2024 Pain in right foot (ICD-10 - M79.671) 11/03/2024 Pain in left foot (ICD-10 - M79.672) 08/11/2024 Other hammer toe(s) (acquired), left foot (ICD-10 - M20.42) 06/09/2024 Other hammer toe(s) (acquired), left foot (ICD-10 - M20.42) 04/07/2024 Other hammer toe(s) (acquired), left foot (ICD-10 - M20.42) 01/28/2024 Other hammer toe(s) (acquired), left foot (ICD-10 - M20.42) 01/28/2024 Pain in right toe(s) (ICD-10 - M79.674) 04/07/2024 Pain in right toe(s) (ICD-10 - M79.674) 06/09/2024 Pain in right toe(s) (ICD-10 - M79.674) 08/11/2024 Pain in right toe(s) (ICD-10 - M79.674) 11/03/2024 Atherosclerosis of [place] arteries of extremities with intermittent claudication, bilateral legs (ICD-10 - I70.213) 11/03/2024 Acquired keratosis [keratoderma] palmaris et plantaris (ICD-10 - L85.1) A total of 1 corns or calluses, as described in the note above, were cut and pared utilizing a #15 blade 08/11/2024 Pain in left toe(s) (ICD-10 - M79.675) 06/09/2024 Pain in left toe(s) (ICD-10 - M79.675) 04/07/2024 Pain in left toe(s) (ICD-10 - M79.675) 01/28/2024 Pain in left toe(s) (ICD-10 - M79.675) 01/28/2024 Unspecified atherosclerosis of [place] arteries of extremities, bilateral legs (ICD-10 - I70.203) Patient educated on risks and aggravating factors of PVD, including conservative treatment options such as a diet and exercise regimen to aid in slowing progression of vascular disease 04/07/2024 Unspecified atherosclerosis of [place] arteries of extremities, bilateral legs (ICD-10 - I70.203) Patient educated on risks and aggravating factors of PVD, including conservative treatment options such as a diet and exercise regimen to aid in slowing progression of vascular disease 06/09/2024 Unspecified atherosclerosis of [place] arteries of extremities, bilateral legs (ICD-10 - I70.203) Patient educated on risks and aggravating factors of PVD, including conservative treatment options such as a diet and exercise regimen to aid in slowing progression of vascular disease 08/11/2024 Unspecified atherosclerosis of [place] arteries of extremities, bilateral legs (ICD-10 - I70.203) Patient educated on risks and aggravating factors of PVD, including conservative treatment options such as a diet and exercise regimen to aid in slowing progression of vascular disease 11/03/2024 Type 2 diabetes mellitus with other circulatory complications (ICD-10 - E11.59) 08/11/2024 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 After removal of overlying extensive hyperkeratosis, healthy tissue was noted and care was taken to assure that no undermining or probing was present. It should be noted that no probing was noted and no infection or drainage was noted. 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 After removal of overlying extensive hyperkeratosis, healthy tissue was noted and care was taken to assure that no undermining or probing was present. It should be noted that no probing was noted and no infection or drainage was noted. 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 After removal of overlying extensive hyperkeratosis, healthy tissue was noted and care was taken to assure that no undermining or probing was present. It should be noted that no probing was noted and no infection or drainage was noted. 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 After removal of overlying extensive hyperkeratosis, healthy tissue was noted and care was taken to assure that no undermining or probing was present. It should be noted that no probing was noted and no infection or drainage was noted. 01/28/2024 Type 2 diabetes mellitus with diabetic peripheral angiopathy without gangrene (ICD-10 - E11.51) Patient educated on proper diabetic foot care and the importance of tight glycemic control in regards to the prevention of diabetic manifestations and symptomatology in lower extremity. Explained to patient the importance of keeping interdigital spaces dry, not walking bare foot, having supportive shoe gear, using moisturizer to skin on feet daily especially in winter months, and checking feet daily for any new lesions or areas suspicious of trauma infection or ulceration. Explained to patient to return to ED if any change in foot health associated with signs of systemic infection including but not limited to nausea, vomiting, fever. 04/07/2024 Type 2 diabetes mellitus with diabetic peripheral angiopathy without gangrene (ICD-10 - E11.51) Patient educated on proper diabetic foot care and the importance of tight glycemic control in regards to the prevention of diabetic manifestations and symptomatology in lower extremity. Explained to patient the importance of keeping interdigital spaces dry, not walking bare foot, having supportive shoe gear, using moisturizer to skin on feet daily especially in winter months, and checking feet daily for any new lesions or areas suspicious of trauma infection or ulceration. Explained to patient to return to ED if any change in foot health associated with signs of systemic infection including but not limited to nausea, vomiting, fever. 06/09/2024 Type 2 diabetes mellitus with diabetic peripheral angiopathy without gangrene (ICD-10 - E11.51) Patient educated on proper diabetic foot care and the importance of tight glycemic control in regards to the prevention of diabetic manifestations and symptomatology in lower extremity. Explained to patient the importance of keeping interdigital spaces dry, not walking bare foot, having supportive shoe gear, using moisturizer to skin on feet daily especially in winter months, and checking feet daily for any new lesions or areas suspicious of trauma infection or ulceration. Explained to patient to return to ED if any change in foot health associated with signs of systemic infection including but not limited to nausea, vomiting, fever. 08/11/2024 Type 2 diabetes mellitus with diabetic peripheral angiopathy without gangrene (ICD-10 - E11.51) Patient educated on proper diabetic foot care and the importance of tight glycemic control in regards to the prevention of diabetic manifestations and symptomatology in lower extremity. Explained to patient the importance of keeping interdigital spaces dry, not walking bare foot, having supportive shoe gear, using moisturizer to skin on feet daily especially in winter months, and checking feet daily for any new lesions or areas suspicious of trauma infection or ulceration. Explained to patient to return to ED if any change in foot health associated with signs of systemic infection including but not limited to nausea, vomiting, fever. Plan Of Treatment Next Appt Details Provider Name:TONY BRADLEY HONEYQUYNH, 01/19/2025 09:50:00 AM, [address] [place] [address], [phone], Insurance Providers Payer Name Payer Address Payer Phone Subscriber Number Group Number Insured Name Patient Relationship to Insured Coverage Start Date Coverage End Date Medicare Part B [place] [address] [place] [address] [id number] WALKER KULKARNI Self - patient is the insured [facility] ATTN CLAIMS [address] [place] [address] [id number] WALKER KULKARNI Self - patient is the insured Medical (General) History Medical History History ICD Code acid reflux Blood transfusion neuropathy Pneumonia stroke anemia Cancer Leg/Feet cramps Respiratory disease Arthritis Liver disease Thyroid Disease Back Trouble Diabetic heart/disease/failure Radiation therapy abnormal bleeding high blood pressure Lung Disease peripheral vascular disease restless leg syndrome abdominal aortic aneurysm
--- OUTSIDE RECORDS SUMMARY | 2025-01-04 14:14 | XMS_ITS ---
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 Has scheduled repeat FT4 and TSH per Dr. Espinoza. Assessment & Plan (06/15/2023 3:54 PM CDT): -Labs on 05/29/2023 showed TSH of 16.9 -Levothyroxine dose was increased to 100 mcg daily Assessment & Plan (03/09/2023 8:23 AM CDT): -Labs dated 10/03/22: FT4 was 0.49, TSH 45.59 -Levothyroxine 75 mcg daily was prescribed Assessment & Plan (12/09/2022 9:54 AM SHAKER REPAIRER): -Labs dated 10/03/22: FT4 was 0.49, TSH [...] 2L at night, 1L during day). RVP 5/ remarkable for Influenza A. CXR at OSH [...] COPD exacerbation. - cont supportive care with tessalon pearls, prn duonebs - pt is outside the window for [...] 12/19/2019 Assessment & Plan (10/01/2023 7:56 PM SHAKER REPAIRER): Glucoses high but needs reliable test strips. [...] podiatry Assessment & Plan (12/09/2022 9:54 AM SHAKER REPAIRER): -Currently prescribed insulin -metformin has been discontinued [...] podiatry Assessment & Plan (11/15/2021 11:27 AM SHAKER REPAIRER): -Currently prescribed insulin and metformin -A1C recently [...] 12/19/2019 Assessment & Plan (10/01/2023 7:54 PM SHAKER REPAIRER): Continue statin, optimize glycemic control. Assessment & [...] effects Assessment & Plan (12/08/2022 8:55 AM SHAKER REPAIRER): -Lipid panel on 03/03/22: TC 108, trig [...] effects Assessment & Plan (11/15/2021 11:23 AM SHAKER REPAIRER): -Will continue statin as it is being tolerated without side effects Stage 3b chronic kidney disease 03/20/2019 Assessment & Plan (10/01/2023 7:55 PM SHAKER REPAIRER): Need optimal glycemic control, minimize risk of hypoglycemia. Assessment & Plan (06/15/2023 3:56 PM CDT): -CKD increases risk of hypoglycemia -Will closely monitor glucose pattern in ensure margin of safety Assessment & Plan (03/09/2023 8:23 AM CDT): -CKD increases risk of hypoglycemia -Will closely monitor glucose pattern in ensure margin of safety Assessment & Plan (12/08/2022 8:56 AM SHAKER REPAIRER): -CKD increases risk of hypoglycemia -Will closely [...] monitor. Assessment & Plan (11/11/2021 12:00 PM SHAKER REPAIRER): -CKD increases risk of hypoglycemia -Will closely [...] adjustments in her medications, followed by Dr. Espinoza. Need to minimize risk of hypoglycemia Assessment [...] time. Assessment & Plan (12/09/2022 9:54 AM SHAKER REPAIRER): -BP was 128/85 -Will continue same antihypertensive [...] MARI Assessment & Plan (11/11/2021 11:59 AM SHAKER REPAIRER): -Will continue same antihypertensive medications at this time. Assessment & Plan (04/08/2019 7:29 AM CDT): Recent changes in medications. Defer to her Cardiology team Breast cancer ([facility]) 07/13/2018 Overview (07/13/2018): L radical mastectomy with chemo and XRT x [id number]. 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 Past Treatment and Therapy Plans No past plan information found. Lifetime Dose Tracking * Chemical Lifetime Dose Automatic Entry Manual Entr y DLP 1,776 mGycm 1,776 mGycm 0 mGycm Resolved Problems Problem Noted Date Diagnosed Date [...] due to worsening creatinine, follows with Dr. Espinoza - continue coumadin. INR on admission 3.7, [...] due to worsening creatinine, follows with Dr. Espinoza - continue coumadin. INR on admission 3.7, [...] due to worsening creatinine, follows with Dr. Espinoza - continue coumadin. INR on admission 3.7, [...] due to worsening creatinine, follows with Dr. Espinoza - per outpatient cardiology note, if patient goes back into afib, would need to load with amiodarone - continue coumadin. INR on admission 3.7, decreased coumadin dose to 5mg - EP consult today
--- OUTSIDE RECORDS SUMMARY | 2025-01-04 14:14 | XMS_ITS | Encounter Summary ---
Author Organization [facility] [employer] [facility] Address [address] [place] [address] Phone Care Team Providers Care Wax Blender Name Role Phone Elmer Wallace MD Primary Care Provider Hema Castaneda MD Unavailable [phone] Colleen Bain MD Unavailable [phone] Rosette Espinoza MD Unavailable [phone] Jenni Hartley RN Unavailable Unavailable Meenu Jones NP Unavailable [phone] Lopez Pool MD Primary Care Provider [phone] Jacqueline Schaeffer RN Unavailable Unavailable Jenni Hartley RN Unavailable Unavailable Anat Hutchison Unavailable Unavailable Encounter Details Date Type Department Care Team (Latest Contact Info) Description 07/19/2020 Orders Only [facility] Scanning, Provider Social History Tobacco Use Types Packs/Day Years Used Date Smoking Tobacco: Former Cigarettes Q uit: 2006 Smokeless Tobacco: Never Alcohol Use Standard Drinks/Week Comments No 0 (1 standard drink = 0.6 oz pur e alcohol) minimal Comments Unknown Sex and Gender Information Value Date Recorded Sex Assigned at Not on file Legal Sex Female 3:00 AM COVERAGE ANALYST Gender Identity Female 07/13/2018 9:28 AM CDT Sexual Orientation Not on file 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 Not on file Not on file Not on file documented as of this encounter Plan of Treatment Upcoming Encounters Date Type Department Care Team (Latest Contact Info) Description 02/10/2025 7:30 AM CDT Hospital Encounter [facility] Heart [facility] V[facility] [place] [address] [place] [address] Fred SullivanTest And Balance EngineerMD [address] [place] [address] Patricia Smith MD [address] [place], [place] [id number] Atrial fibrillation, unspecified type (HCC) 02/10/2025 7:30 AM CDT - 02/10/2025 8:05 AM CDT Surgery [facility] Heart [facility] Vascular [address] [phone] Patricia Smith MD [address] [place] [id number] CARDIOVERSION documented as of this encounter Procedures Procedure Name Priority Date/Time Associated Diagnosis Comments SCAN - LABS 07/19/2020 documented in this encounter Results * SCAN - LABS (07/19/2020) us Provider Scanning Final Result documented in this encounter Visit Diagnoses Not on filedocumented in this encounter Additional Health Concerns Infection Onset Date Last Indicated Resolved Time COVID: Suspected 03/13/2022 03/13/2022 03/13/2022 6:26 PM CDT documented as of this encounter Care Teams Wax Blender Relationship Specialty Start Date End Date Elmer Wallcae MD PCP - General 02/09/17 03/17/22 Lopez Pool MD PCP - General Family Medicine 03/18/22 Hema Castaneda MD Consulting Physician Cardiology 01/11/19 Colleen Bain MD Referring Physician Endocrinology Diabetes & Metabolism 04/07/19 Rosette Espinoza MD Referring Physician Cardiology 04/07/19 Jenni Hartley, RN Registered Nurse Cardiology 04/02/21 04/22/21 Meenu Jones NP Warp Yarn Sorter Cardiology 04/02/21 04/22/21 Jacqueline Schaeffer, senior escrow officer Failure Coordinator Cardiology 07/13/24 Jenni Hartley, RN Registered Nurse 07/13/24 08/01/24 Anat Hutchison 07/13/24 documented as of this encounter
--- OUTSIDE RECORDS SUMMARY | 2025-01-04 14:14 | XMS_ITS | Clinical Summary ---
Author Organization [facility] Address [address] [place] [address] Care Team Providers Care Ragman Name Role Phone Hema Castaneda MD Unavailable [phone] Colleen Bain MD Unavailable [phone] Дмитрий Torres MD Unavailable [phone] Lopez Pool MD Primary Care Provider [phone] Jacqueline Schaeffer RN Unavailable Unavailable Anat Hutchison Unavailable Unavailable Allergies Active Allergy Reactions Criticality Noted Date [...] by mouth daily 02/18/20 22 Active lancets misc Use lancet to check blood sugar 3 [...] 1 tablet (137 mcg total) by mouth 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 Has [...] prescribed Assessment & Plan (12/09/2022 9:54 AM SUPERVISOR UNDERWRITING CLERKS): -Labs dated 10/03/22: FT4 was 0.49, TSH [...] 2L at night, 1L during day). RVP 5/7 remarkable for Influenza A. CXR at OSH [...] 12/19/2019 Assessment & Plan (10/01/2023 7:56 PM SUPERVISOR UNDERWRITING CLERKS): Glucoses high but needs reliable test strips. [...] podiatry Assessment & Plan (12/09/2022 9:54 AM SUPERVISOR UNDERWRITING CLERKS): -Currently prescribed insulin -metformin has been discontinued [...] podiatry Assessment & Plan (11/15/2021 11:27 AM SUPERVISOR UNDERWRITING CLERKS): -Currently prescribed insulin and metformin -A1C recently [...] 12/19/2019 Assessment & Plan (10/01/2023 7:54 PM SUPERVISOR UNDERWRITING CLERKS): Continue statin, optimize glycemic control. Assessment & [...] effects Assessment & Plan (12/08/2022 8:55 AM SUPERVISOR UNDERWRITING CLERKS): -Lipid panel on 03/03/22: TC 108, trig [...] effects Assessment & Plan (11/15/2021 11:23 AM SUPERVISOR UNDERWRITING CLERKS): -Will continue statin as it is being tolerated without side effects Stage 3b chronic kidney disease 03/20/2019 Assessment & Plan (10/01/2023 7:55 PM SUPERVISOR UNDERWRITING CLERKS): Need optimal glycemic control, minimize risk of hypoglycemia. Assessment & Plan (06/15/2023 3:56 PM CDT): -CKD increases risk of hypoglycemia -Will closely monitor glucose pattern in ensure margin of safety Assessment & Plan (03/09/2023 8:23 AM CDT): -CKD increases risk of hypoglycemia -Will closely monitor glucose pattern in ensure margin of safety Assessment & Plan (12/08/2022 8:56 AM SUPERVISOR UNDERWRITING CLERKS): -CKD increases risk of hypoglycemia -Will closely [...] monitor. Assessment & Plan (11/11/2021 12:00 PM SUPERVISOR UNDERWRITING CLERKS): -CKD increases risk of hypoglycemia -Will closely [...] time. Assessment & Plan (12/09/2022 9:54 AM SUPERVISOR UNDERWRITING CLERKS): -BP was 128/85 -Will continue same antihypertensive [...] MARI Assessment & Plan (11/11/2021 11:59 AM SUPERVISOR UNDERWRITING CLERKS): -Will continue same antihypertensive medications at this time. Assessment & Plan (04/08/2019 7:29 AM CDT): Recent changes in medications. Defer to her Cardiology team Breast cancer ([facility]) 07/13/2018 Overview (07/13/2018): L radical mastectomy with chemo and XRT x 35 [phone]. Assessment & Plan (03/17/2022 10:47 AM CDT): [...] AM CDT): C/w home anastrozole Stroke (cerebrum) ([facility]) 07/13/2018 Overview [...] (goal 2-3) - cont sotolol, renally dosed detention current use of anticoagulant therapy 0 03/24/2018 [...] dysfunction 02/22/2010 Chronic diastolic congestive heart failure (CMS/ HCC) 02/22/2010 Assessment & Plan (03/17/2022 10:47 AM [...] dose to 5mg - EP consult today Encounters Date Type Department Care Team Description 12/21/2024 Telephone [facility] Cardiology [address] [place] [address] Advanced Medicine 8th [place] [address] [place] [address] Дмитрий Torres MD appt 12/21/2024 Telephone [facility] Cardiology [address] [place] [address] Advanced Medicine 8th [place] [address] [place] [address] Дмитрий Torres MD 12/21/2024 Telephone [facility] Cardiology Formerly [facility] for [facility] 8th [place] [address] [place] [address] Дмитрий Torres MD 12/21/2024 Telephone [facility] Transplant Heart [address] [facility] [address] Mailstop [phone] [place] [address] Kiko Omalley 12/19/2024 Orders Only [facility] Cardiology [address] [facility] Medical Office Building [address] [place] [address] Дмитрий Torres MD 12/19/2024 Telephone [facility] Transplant Heart [address] [place] [address] 3401 Mailstop 9029-016 [place] [address] Kiko Omalley 12/19/2024 Orders Only [facility] Transplant Heart [address] [place] [address] 3401 Mailstop 9029-246 [place] [address] Jacqueline Schaeffer RN Chronic diastolic congestive heart failure (HCC) (Primary Dx) 12/16/2024 6:50 AM [facility] - 12/16/2024 11:59 PM [facility] Cardiac Diagnostic Lab [address] [facility] 8th [place] [address] Atrial flutter, unspecified type (HCC) Discharge Disposition: Discharge to home or self care 12/16/2024 Anticoagulation Telephone Call [facility] Transplant Heart [address] [place] [address] 340 Mailop -14-6 [place] [address] Jacqueline Schaeffer RN Atrial fibrillation, unspecified type (HCC) (Primary Dx); 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 12/16/2024 Telephone [facility] Cardiology [address] [facility] Advanced Medicine 8th [place] [address] [place] [address] Vijay Wheeler 12/16/2024 Telephone [facility] Transplant Heart [address] [place] [address] 34[address] [place] [address] Jacqueline Schaeffer RN 12/16/2024 Orders Only [facility] Transplant Heart [address] [place] [address] 3401 Mailstop 9029-066 [place] [address] Deanne Peralta RN 12/16/2024 Results Follow-Up [facility] Cardiology [address] [place] [address] Дмитрий Torres MD 12/14/2024 Telephone [facility] Transplant Heart [address] [place] [address] 3401 Mailstop 9029-445 [place] [address] Jacqueline Schaeffer RN 12/12/2024 Telephone [facility] Transplant Heart [address] [facility] [address] Mailstop -689 [place] [address] AngelyAlison winkler 12/12/2024 Telephone [facility] Cardiology [address] [facility] Advanced Medicine 8th [place] [address] [place] [address] Дмитрий Torres MD 12/09/2024 Anticoagulation Telephone Call [facility] Transplant Heart [address] [facility] [address] [place] [address] Jenni Hartley RN Atrial fibrillation, unspecified type (HCC) (Primary Dx); detention current use of anticoagulant therapy 12/07/2024 Telephone [facility] Cardiology [address] [place] [address] [address] Nanette Bingham 12/06/2024 10:12 AM SUPERVISOR UNDERWRITING [employer]ERKS - 12/06/2024 11:59 PM SUPERVISOR UNDERWRITING [employer]ERKS Hospital Encounter [facility] [address] [place] [address] SOB (shortness of breath) Discharge Disposition: Discharge to home or self care 12/06/2024 10:00 AM SUPERVISOR UNDERWRITING [employer]ERKS Office Visit [facility] Pulmonary [address] [place] [address] [place] [address] Kiesha Varela MD SOB (shortness of breath) (Primary Dx); Chronic obstructive pulmonary disease, unspecified COPD type (HCC) 12/06/2024 8:54 AM SUPERVISOR UNDERWRITING CLERKS - 12/06/2024 11:59 PM SUPERVISOR UNDERWRITING CLERKS Hospital Encounter [facility] Pulmonary Formerly [facility] [address] [address] Chronic obstructive pulmonary disease, unspecified COPD type (HCC) Discharge Disposition: Discharge to home or self care 12/02/2024 8:45 AM SUPERVISOR UNDERWRITING CLERKS Office Visit [facility] Cardiology [address] [place] [address] Medicine 8th [place] [address] Дмитрий Torres MD Atrial flutter, unspecified type (HCC) (Primary Dx); Pacemaker 12/02/2024 8:15 AM SUPERVISOR UNDERWRITING [employer]ERKS Ancillary Procedure [facility] Cardiology [address] [facility] 8th [place] [address] [place] [address] Sinus bradycardia (Primary Dx); Fitting or adjustment of cardiac pacemaker; Atrial fibrillation, unspecified type (HCC); Atrial flutter, unspecified type (HCC); Cardiomyopathy, idiopathic (HCC) 12/02/2024 Telephone [facility] Transplant Heart [address] [place] [address] [address] Mailstop -[address] [place] [address] Kathryn Novak 12/02/2024 Anticoagulation Telephone Call [facility] Transplant Heart [address] [place] [address] [address] Mailop -07[address] [place] [address] Jenni Hartley RN Atrial fibrillation, unspecified type (HCC) (Primary Dx); detention current use of anticoagulant therapy 11/14/2024 Anticoagulation Telephone Call [facility] Transplant Heart [address] [place] [address] [address] Mailstop -[address] [place] [address] Jenni Hartley RN Atrial fibrillation, unspecified type (HCC) (Primary Dx); detention current use of anticoagulant therapy 10/27/2024 Anticoagulation - Other Visit (DOAC) [facility] Transplant Heart [address] [place] [address] 340 Mailstop [phone] [place] [address] Jenni Hartley RN Atrial fibrillation, unspecified type (HCC) (Primary Dx); detention current use of anticoagulant therapy from Last 3 Months Immunizations Immunization Administration Dates Next Due Influenza, Quadrivalent, Juanita l Culture-based MDCK, Preservative Free, Antibiotic Free, Intramuscular 07/26/2019,07/15/2018 Influenza, Quadrivalent, Spl it, Intramuscular 07/09/2017 Influenza, Trivalent, IM (MDV) 4,06/29/2013,07/27/2012,07/16 Influenza, Unspecified 07/19/2022,07/20/2017 Pneumococcal Conjugate PCV 13 07/23/2018 Pneumococcal Polysaccharide PPV23 07/21/2016, Tdap 09/24/2012 Surgical History Surgery Date Site/Laterality Comments CARDIAC PACEMAKER PLACEMENT 10/19/2016 - 10/18/2017 dual chamber COLECTOMY diverticulosis perf with 1 foot colon removed; no ostomy or appy HYSTERECTOMY 10/19/1984 - 10/18/1985 Prolapsed, no BSO MASTECTOMY, RADICAL 10/19/2014 - 10/18/2015 L breast and nodes BLADDER SURGERY 2012 and 2014 Endoscopic cancer removal CATARACT EXTRACTION, BILATERAL 10/19/2015 - 10/18/2016 Medical History Medical History Date Comments Physical deconditioning 07/13/2018 Former cigarette smoker 07/13/2018 Class 2 obesity in adult 07/13/2018 Anemia 07/13/2018 Depression 07/13/2018 Essential hypertension 07/13/2018 Breast cancer (HCC) 07/13/2018 L radical ma stectomy with chemo and XRT x 35 [phone]. Other emphysema (HCC) 01/11/2019 Family History Medical History Relation Name Comments Sleep apnea Daughter Abdominal Aortic Aneurysm Father Diabetes Father Family history of diabetes mellitus - (Added by TW Conv) Coronary artery disease Mother Fami ly history of coronary artery disease - (Added by TW Conv) Diabetes Mother Family history of diabetes mellitus - (Added by TW Conv) Heart failure Mother Family history of CHF (congestive heart failure) - (Added by TW Conv)/Family history of heart failure - (Added by TW Conv)/Family history of CHF (congestive heart failure) - (Added by TW Conv) Relation Name Status Comments Daughter Alive Father (Age 84) AAA ruptur e Mother Mi 1982 Social History Tobacco Use Types Packs/Day Years [...] often do you attend chur ch or shinto services? Never 03/14/2022 Do you belong to any clubs o r organizations such as episcopalian groups, unions, fraternal or athletic groups, or [...] place to sleep or slept in a usp (including now)? No 03/14/2022 Personal Safety Answer Date Recorded Have you ever been in or are you currently in a harmful physical or emotional relationship or is someone making you feel afraid or unsafe? 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 Not on file Not on file Obstetrics History Para Term AB IAB SAB Ectopic Multiple Livin g Live Births 1 1 Date Outcome GA Total Labor Labor/2nd/3rd Weight Sex Type Anes PTL Yisel A1 A5 Name Clin Para Last Filed Vital Signs Vital Sign Reading Time Taken Comments Blood Pressure 131/69 12/06/2024 9:26 AM SUPERVISOR UNDERWRITING [employer]ERKS Pulse 66 12/06/2024 9:26 AM SUPERVISOR UNDERWRIT[employer]ERKS Temperature 36.3 C (97.4 F) 12/06/2024 9:26 AM SUPERVISOR UNDERWRITING [employer]ERKS Respiratory Rate 18 12/06/2024 9:26 AM SUPERVISOR UNDERWRITING [employer]ERKS Oxygen Saturation 92% 12/06/2024 9:26 AM SUPERVISOR UNDERWRITING [employer]ERKS Inhaled Oxygen Concentration - - Weight 110.7 kg (244 lb) 12/06/2024 9:26 AM SUPERVISOR UNDERWRITING [employer]ERKS Height 165.1 cm (5' 5 ) 12/06/2024 9:26 AM SUPERVISOR UNDERWRITING [employer]ERKS Body Mass Index 40.6 12/06/2024 9:26 AM SUPERVISOR UNDERWRITING [employer]ERKS Plan of Treatment Upcoming Encounters Date Type Department Care Team (Latest Contact Info) Description 02/10/2025 7:30 AM CDT Hospital Encounter [facility] Center [address] [place] [address] Nate, Buffing Machine Operator [employer], [address] [place], [place] [id number] Patricia Smith MD [address] [address] Atrial fibrillation, unspecified type (HCC) 02/10/2025 7:30 AM CDT - 02/10/2025 8:05 AM CDT Surgery [facility] [address] [place] [address] Patricia Smith MD [address] [facility] [address] [place] [address] CARDIOVERSION Health Maintenance Due Date Last Done Comments Albumin Creatinine Ratio, Urine 1945 Dilated Eye Exam 1945 Foot Exam 1945 Hepatitis B Screening 1961 Zoster Vaccine (1 of 2) 1993 Well Visit 65+ 2008 DTaP/Tdap/Td Vaccine (2 - Td or Tdap) 09/24/2022 09/24/2012 Depression Screening 03/13/2023 03/13/2022 Fall Risk Assessment 03/18/2023 03/18/2022 Hemoglobin A1C 04/02/2024 10/02/2023, 11/20, 06/24/2022, Additional history exists Osteoporosis Screening-Bone Density Scan 04/15/2024 04/15/2022, 04/02/2021, 01/11/2019 Influenza Vaccine (#1) 2024 , 07/26/2019, 07/15/2018, Additional history exists Lipid Panel 09/01/2025 09/01/2024, 02/16, 03/18/2019, Additional history exists eGFR 09/01/2025 09/01/2024, 08/19, 10/03/2022, Additional history exists Pneumococcal vaccine 65+ Completed 018, 07/21/2016, 06/07/2014 Medical Devices Implanted Type Area Health Care Sanitary Technician Device Identifier Shelf Expiration Date Model / Serial / Lot Pacemaker Pacemaker Right: Chest Procedures Procedure Name Priority Date/Time Associated Diagnosis Comments DEVICE CHECK - REMOTE Routine 12/19/2024 3:31 AM SUPERVISOR UNDERWRIT[employer]ERKS THYROID FUNCTION CASCADE Routine 12/16/2024 2:57 PM SUPERVISOR UNDERWRIT[employer]ERKS Chronic diastolic congestive heart failure (HCC) TRANSTHORACIC ECHO (TTE) COMPLETE W DOPPLER/CF WO CONTRAST Routine 12/16/2024 7:57 AM SUPERVISOR UNDERWRITING [employer]ERKS Atrial flutter, unspecified type (HCC) PROTIME-INR Routine 12/16/2024 PROTIME-INR Routine 12/09/2024 XR CHEST PA LATERAL 2 VIEWS Schedule Routine, Read Routine (OP Routine) 12/06/2024 10:18 AM SUPERVISOR UNDERWRITING [employer]ERKS SOB (shortness of breath) PULMONARY FUNCTION TEST (PFT) Routine 12/06/2024 9:13 AM SUPERVISOR UNDERWRITING [employer]ERKS Chronic obstructive pulmonary disease, unspecified COPD type (HCC) ECG 12-LEAD Routine 12/02/2024 9:17 AM SUPERVISOR UNDERWRITING [employer]ERKS Atrial flutter, unspecified type (HCC) DEVICE CHECK - IN OFFICE Routine 12/02/2024 8:05 AM SUPERVISOR UNDERWRITING [employer]ERKS Sinus bradycardia Fitting or adjustment of cardiac pacemaker COMPREHENSIVE METABOLIC PANEL Routine 09/01/2024 9:30 AM SUPERVISOR UNDERWRITING [employer]ERKS On amiodarone therapy HEMOGLOBIN A1C Routine 10/02/2023 Type 2 diabetes mellitus with other specified complication, with long-term current use of insulin ([facility]) LIPID PANEL Timed 03/03/2022 11:18 AM CDT DEXA APPENDICULAR BONE DENSITY Schedule Routine, Read Routine (OP Routine) 01/11/2019 2:40 PM CDT detention current use of inhaled steroid Chronic obstructive pulmonary disease, unspecified COPD type (HCC) H/O inhaled steroid therapy from Last 3 Months or Most Recently Relevant to Health Maintenance Results * DEVICE CHECK - REMOTE (12/19/2024 3:31 AM SUPERVISOR UNDERWRITING CLERKS) Anatomical Region Laterality Modality Other 12/19/2024 3:31 AM SUPERVISOR UNDERWRITING [employer]ERKS Narrative 12/29/2024 12:55 PM CDT Interpretation Summary: Battery and Leads (BL) Normal parameters noted on battery and lead(s) --- 1.5 years remaining (this is an estimate based on prior usage) Presenting Rhythm (IN) Atrial Fibrillation or Flutter Ventricular Sensing (VS) [...] estimate based on prior usage) Presenting Rhythm (IN) Atrial Fibrillation or Flutter Ventricular Sensing (VS) --- rate 60-100's Arrhythmic events (AE) Persistent atrial fibrillation and/or flutter Anticoagulation (AC) Patient on anticoagulant therapy Patient prescribed Warfarin (Coumadin) Transmission Information (TI) Device Summary Report us Дмитрий Torres MD [facility] CARDIAC SERVICES PROCEDURES Final Result * (ABNORMAL) Thyroid Function [place] (12/16/2024 2:57 PM SUPERVISOR UNDERWRITING CLERKS) [facility] Free T4 1.40 0.76 - 1.46 EXTERNAL LAB TSH 7.266(A) 0.358 - 3.740 uIU/mL EXTERNAL LAB Blood 12/16/2024 2:57 PM SUPERVISOR UNDERWRITING [employer]ERKS us Chanel Ponce CABLE MOCK UP ASSEMBLER LAB BLOOD ORDERABLES Final Result EXTERNAL LAB * TRANSTHORACIC ECHO (TTE) COMPLETE W DOPPLER/CF WO CONTRAST (12/16/2024 7:57 AM SUPERVISOR UNDERWRITING CLERKS) Anatomical Region Laterality Modality Ultrasound 12/16/2024 7:05 AM SUPERVISOR UNDERWRITING [employer]ERKS Narrative 12/16/2024 9:43 AM SUPERVISOR UNDERWRITING CLERKS [facility] Cardiac [place] [address] Transthoracic Echocardiographic Report Patient Name: WALKER HILLIARD L : 1945 (79y 6m) Gender: F Study Date: 12/16/2024 07:05:11 AM Ht(Inch): 65 Wt(Lb): 244.05 BSA: 2.25 Circuit Recorder: Thi Blankenship Location: [facility] Order Provider: ДМИТРИЙ TORRES Heart Rate: 81 BMI: 40.61 BP: 144 / 85 Quality: The study images were of technically adequate quality. Ref Provider: ДМИТРИЙ TORRES PROCEDURES: Echocardiographic Report: ([id number]) Transthoracic complete echo, 2D, spectral and tissue [...] By: Hema Aguilera M.D. 12/16/2024 9:42:53 AM SUPERVISOR UNDERWRITING [employer]ERKS Electronically Signed By: Hema Aguilera M.D. 12/16/2024 9:42:53 AM SUPERVISOR UNDERWRITING [employer]ERKS Procedure Note Hema Aguilera MD PhD - 12/16/2024 [facility] Cardiac [place] [address] Transthoracic Echocardiographic Report Patient Name: WALKER HILLIARD L : 1945 (79y 6m) Gender: F Study Date: 12/16/2024 07:05:11 AM Ht(Inch): 65 Wt(Lb): 244.05 BSA: 2.25 Circuit Recorder: Thi Blankenship Location: [facility] Order Provider: ДМИТРИЙ TORRES Heart Rate: 81 BMI: 40.61 BP: 144 / 85 Quality: The study images were oftechnically adequate quality. Ref Provider: ДМИТРИЙ TORRES PROCEDURES: Echocardiographic Report: ([id number]) Transthoracic complete echo, 2D,spectral and tissue Doppler, [...] LA Length 4C 5.63 cm MV Decel Wevy005.61 msec [ 104.00 - 258.00 ] LA [...] By: Hema Aguilera M.D. 12/16/2024 9:42:53 AM SUPERVISOR UNDERWRITING [employer]ERKS Electronically Signed By: Hema Aguilera M.D. 12/16/2024 9:42:53 AM SUPERVISOR UNDERWRITING [employer]ERKS Дмитрий Torres MD CV ECHO PROCEDURES Final Resul t * (ABNORMAL) Protime-INR (12/16/2024) INR 1.90(A) 0.90 - 1.10 Blood 12/16/2024 Historical Provider LAB BLOOD ORDERABLES Shalini l Result * (ABNORMAL) Protime-INR (12/09/2024) INR 2.50(A) 0.90 - 1.10 Blood 12/09/2024 Historical Provider LAB BLOOD ORDERABLES Shalini l Result * XR Chest Pa Lateral 2 Views (12/06/2024 10:18 AM SUPERVISOR UNDERWRITING CLERKS) Anatomical Region Laterality Modality Body, Chest N/A Computed Radiogr aphy 12/06/2024 10:5 3 AM SUPERVISOR UNDERWRITING [employer]ERKS Impressions 12/06/2024 11:52 AM SUPERVISOR UNDERWRITING [employer]ERKS Dual-lead pacemaker is seen in unchanged position [...] Mitul Howe M.D. Narrative 12/06/2024 11:52 AM SUPERVISOR UNDERWRITING CLERKS EXAMINATION: XR CHEST PA LATERAL 2 VIEWS [...] Pulmonary Function Test - (12/06/2024 9:13 AM SUPERVISOR UNDERWRITING CLERKS) FVC PRE 1.74 L [facility] FVC %PRE PRED 66 % [facility] FEV1 PRE 1.06 L [facility] FEV1 %PRE PRED 53 % [facility] FEV1/FVC PRE 61.0 % [facility] Anatomical Region Laterality Modality PFT 12/06/2024 8:59 AM SUPERVISOR UNDERWRITING CLERKS Narrative 12/08/2024 10:52 AM SUPERVISOR UNDERWRITING CLERKS PFT performed at:->[facility] Adult PFT Lab- [facility] Procedure:->Spirometry Pulmonary [...] and %HbO2 is age dependent. However, the [facility] Pulmonary Function Laboratory defines hypoxemia as a PaO2 <56 mm Hg or a %HbO2 <89%. Starting on October of 2024 the [facility] Pulmonary Function Laboratory utilizes race neutral GLI Global normative equations. Maurilio Horner MD PFT ORDERABLES F inal Result * ECG 12 lead (12/02/2024 9:17 AM SUPERVISOR UNDERWRITING CLERKS) Дмитрий Torres MD ECG ORDERABLES Edited Result - Final * DEVICE CHECK - IN OFFICE (12/02/2024 8:05 AM SUPERVISOR UNDERWRITING CLERKS) Anatomical Region Laterality Modality Other 12/02/2024 2:00 AM SUPERVISOR UNDERWRITING [employer]ERKS Narrative 12/08/2024 10:47 AM SUPERVISOR UNDERWRITING [employer]ERKS Interpretation Summary: Battery and Leads (BL) Normal parameters noted on battery and lead(s) Presenting Rhythm (IN) Ventricular Sensing (VS) Atrial Fibrillation or Flutter Ventricular Pacing (STOCKROOM SELECTOR) Arrhythmic events (AE) No new arrhythmic events in monitoring period Anticoagulation (AC) Patient on anticoagulant therapy Patient prescribed Warfarin (Coumadin) Procedure Note Дмитрий Torres MD - 12/08/2024 Interpretation Summary: Battery and Leads (BL) Normal parameters noted on battery and lead(s) Presenting Rhythm (IN) Ventricular Sensing (VS) Atrial Fibrillation or Flutter Ventricular Pacing (STOCKROOM SELECTOR) Arrhythmic events (AE) No new arrhythmic events in monitoring period Anticoagulation (AC) Patient on anticoagulant therapy Patient prescribed Warfarin (Coumadin) us Дмитрий Torres MD [facility] CARDIAC SERVICES PROCEDURES Final Result * (ABNORMAL) Comprehensive metabolic panel (09/01/2024 9:30 AM SUPERVISOR UNDERWRITING [employer]ERKS) SCRIBED Sodium 141 136 - 145 mmol/L [...] NO LAB FOUND SCRIBED eGFR in NonAfrican Panamanian 34 >89 TXP NO LAB FOUND Blood 09/01/2024 9:30 AM SUPERVISOR UNDERWRITING CLERKS us Дмитрий Torres MD LAB BLOOD ORDERABLES Final Res ult TXP NO LAB FOUND * Hemoglobin A1c (10/02/2023) Blood us Colleen Bain MD LAB BLOOD ORDERABLES Final Result Performing Organization Address [facility] [facility] Co de Phone Number EXTERNAL LAB * (ABNORMAL) Lipid panel (03/03/2022 11:18 AM CDT) Cholesterol 108 30 - 199 mg/dL [facility] Comment: Interpretive Data Ages < or = [...] revised on 2018. Triglycerides 222(H) <=149 mg/dL [facility] Comment: Interpretive Data Ages < or = [...] revised on 2018. HDL 31(L) >=40 mg/dL [facility] Comment: Interpretive Data Ages < or = [...] on 2018. LDL, calculated 33 <=129 mg/dL [facility] Comment: Interpretive Data Ages < or = [...] revised on 2018. Non-HDL Cholesterol 77 mg/dL [facility] Comment: Interpretive Data Ages < or = [...] last revised on 2018. Chol/HDL ratio 3 [facility] Blood 03/03/2022 11:1 8 AM CDT 03/03/2022 12:31 PM CDT us Kal Mccray MD PhD LAB BLOOD ORDERABLES Shalini olivier Result [facility] Department [place] [address] * Dexa Bone Density (01/11/2019 2:40 PM CDT) Anatomical Region Laterality Modality Wrist N/A Radiographic Zeinab ging Narrative 01/13/2019 2:57 PM CDT Patient Name: Walker Hilliard Date of : 1945 Date of scan: 01/11/2019 Bone mineral density was performed on a HoloTeqcycle Discovery Densitometer. Machine Cross-calibration and Precision studies [...] of Internal Medicine 114(11): 919-923 (1990) 2) Koroma, Lancet 341 : 72-75 (1992) 3) Black, Journal Bone and Mineral Research 7(6): 633-8 (1991) 4) Mckoy, Journal Bone and Mineral Research 8(10):1227-33 (1992) The history and data sections of the bone mineral density scan were prepared by Serene Alex who is accredited by the International Society of Clinical Densitometry. The overall patient assessment and scan interpretation were performed by James Orosco MD who is certified by the International Society of Clinical Densitometry. [id number] Berlin Escobar MD IMG DXA PROCEDURES Final Resul t from Last 3 Months or Most Recently Relevant to Health Maintenance Insurance MEDICARE [facility] MEDICARE SUPPLEMENT Member Subscriber Plan / Payer (Ef fective 2019-Present) Name:Walker Hilliard Relation to Subscriber:Self Name:Walker Hilliard Payer ID:[id number] Group ID:[id number] Type:COMMERCIAL Address: [address] MEDICARE [facility] MEDICARE [place] MEDICARE SUPPLEMENT Advance Directives For more information, please contact: [phone] * LIMITED - No CPR (Latest Code [...] 11:23 AM 03/18/2019 5:50 PM Care Teams Ragman Relationship Specialty Start Date End Date Lopez Pool MD PCP - General Family Medicine 03/18/22 Hema Castaneda MD Consulting Physician Cardiology 01/11/19 Colleen Bain MD Referring Physician Endocrinology Diabetes & Metabolism 04/07/19 Дмитрий Torres MD Referring Physician Cardiology 04/07/19 Jacqueline Schaeffer, louver door assembler Failure Coordinator Cardiology 07/13/24 Anat Hutchison 07/13/24
--- OUTSIDE RECORDS SUMMARY | 2025-01-04 14:14 | XMS_ITS | Encounter Summary ---
Author Organization [facility] [employer] [facility] Address [address] [place] [address] Phone Care Team Providers Care Residential Pest Control Technician Name Role Phone Hema Castaneda MD Unavailable [phone] Colleen Bain MD Unavailable [phone] Rosetet Espinoza MD Unavailable [phone] Lopez Pool MD Primary Care Provider [phone] Jacqueline Schaeffer RN Unavailable Unavailable Anat Hutchison Unavailable Unavailable Encounter Details Date Type Department Care Team (Latest Contact Info) Description 08/04/2024 Orders Only [facility] Scanning, Provider Social [...] 03/14/2022 How often do you attend chur or judaism services? Never 03/14/2022 Do you belong to any clubs o r organizations such as taoist groups, unions, fraternal or athletic groups, or [...] place to sleep or slept in a longterm (including now)? No 03/14/2022 Personal Safety Answer Date Recorded Have you ever been in or are you currently in a harmful physical or emotional relationship or is someone making you feel afraid or unsafe? 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 on file Not on file Not on file documented as of this encounter Plan of Treatment Upcoming Encounters Date Type Department Care Team (Latest Contact Info) Description 02/10/2025 7:30 AM CDT Hospital Encounter [facility] [place] [address] [place] [phone] Fred SullivanData Security Coordinator, [address] [place] [address] Patricia Smith MD [address] [facility] [address] [place], [place] [id number] Atrial fibrillation, unspecified type (HCC) 02/10/2025 7:30 AM CDT - 02/10/2025 8:05 AM CDT Surgery [facility] [address] [phone] Patricia Smith MD [address] [facility] [address] [place] [address] CARDIOVERSION documented as of this encounter Procedures Procedure Name Priority Date/Time Associated Diagnosis Comments CARDIOLOGY DOCUMENT SCAN 08/04/2024 documented in this encounter Results * Cardiology Document Scan (08/04/2024) Anatomical Region Laterality Modality Other Provider Scanning CV CARDIAC SERVICES PROCEDURES Final Result documented in this encounter Visit Diagnoses Not on filedocumented in this encounter Care Teams Residential Pest Control Technician Relationship Specialty Start Date End Date Lopez Pool MD PCP - General Family Medicine 03/18/22 Hema Castaneda MD Consulting Physician Cardiology 01/11/19 Colleen Bain MD Referring Physician Endocrinology Diabetes & Metabolism 04/07/19 Rosette Espinoza MD Referring Physician Cardiology 04/07/19 Jacqueline Schaeffer, fixed interest dealer Failure Coordinator Cardiology 07/13/24 Anat Hutchison 07/13/24 documented as of this encounter
--- OUTSIDE RECORDS SUMMARY | 2025-01-04 14:14 | XMS_ITS | Encounter Summary ---
Author Organization [facility] [employer] [facility] Address [address] [place] [address] Phone Care Team Providers Care Manufacturing Systems Engineer Name Role Phone Elmer Wallace MD Primary Care Provider [phone] Hema Castaneda MD Unavailable [phone] Colleen Bain MD Unavailable [phone] Rosette Espinoza MD Unavailable [phone] Jenni Hartley RN Unavailable Unavailable Meenu Jones NP Unavailable [phone] Lopez Pool MD Primary Care Provider [phone] Jacqueline Schaeffer RN Unavailable Unavailable Jenni Hartley RN Unavailable Unavailable Anat Hutchison Unavailable Unavailable Encounter Details Date Type Department Care Team (Latest Contact Info) Description 05/02/2019 Orders Only [facility] Scanning, Provider Social History Tobacco Use Types Packs/Day Years Used Date Smoking Tobacco: Former Smokeless Tobacco: Never Alcohol Use Standard Drinks/Week Comments No 0 (1 standard drink = 0.6 oz pur e alcohol) minimal Comments Unknown Sex and Gender Information Value Date Recorded Sex Assigned at Not on file Legal Sex Female 3:00 AM INSTRUMENT AND CONTROLS TECHNICIAN Gender Identity Female 07/13/2018 9:28 AM CDT Sexual Orientation Not on file 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 [employer] Not on file Not on file Not on file documented as of this encounter Plan of Treatment Upcoming Encounters Date Type Department Care Team (Latest Contact Info) Description 02/10/2025 7:30 AM CDT Hospital Encounter [facility] [place] [address] [place] [phone] Fred SullivanHospice Nurse, [address] [place] [address] Patricia Smith MD [address] [facility] [address] [place], [place] [id number] Atrial fibrillation, unspecified type (HCC) 02/10/2025 7:30 AM CDT - 02/10/2025 8:05 AM CDT Surgery [facility] [address] [phone] Patricia Smith MD [address] [facility] [address] [place], [place] [id number] CARDIOVERSION documented as of this encounter Procedures Procedure Name Priority Date/Time Associated Diagnosis Comments SCAN - LABS 05/02/2019 documented in this encounter Results * SCAN - LABS (05/02/2019) us Provider Scanning Final Result documented in this encounter Visit Diagnoses Not on filedocumented in this encounter Additional Health Concerns Infection Onset Date Last Indicated Resolved Time COVID: Suspected 03/13/2022 03/13/2022 03/13/2022 6:26 PM CDT documented as of this encounter Care Teams Manufacturing Systems Engineer Relationship Specialty Start Date End Date Elmer Wallace MD PCP - General 02/09/17 03/17/22 Lopez Pool MD PCP - General Family Medicine 03/18/22 Hema Castaneda MD Consulting Physician Cardiology 01/11/19 Colleen Bain MD Referring Physician Endocrinology Diabetes & Metabolism 04/07/19 Rosette Espinoza MD Referring Physician Cardiology 04/07/19 Jenni Hartley, RN Registered Nurse Cardiology 04/02/21 04/22/21 Meenu Jones NP Alley Cleaner Cardiology 04/02/21 04/22/21 Jacqueline Schaeffer, c programmer Failure Coordinator Cardiology 07/13/24 Jenni Hartley, RN Registered Nurse 07/13/24 08/01/24 Anat Hutchison 07/13/24 documented as of this encounter
--- OUTSIDE RECORDS SUMMARY | 2025-01-04 14:14 | XMS_ITS | Encounter Summary ---
Author Organization [facility] [employer] [facility] Address [address] [place] [address] Phone Care Team Providers Care Director Dental Services Name Role Phone Elmer Wallace MD Primary Care Provider Hema Castaneda MD Unavailable [phone] Colleen Bain MD Unavailable [phone] Rosette Espinoza MD Unavailable [phone] Jenni Hartley RN Unavailable Unavailable Meenu Jones NP Unavailable [phone] Lopez Pool MD Primary Care Provider [phone] Jacqueline Schaeffer RN Unavailable Unavailable Jenni Hartley RN Unavailable Unavailable Anat Hutchison Unavailable Unavailable Encounter Details Date Type Department Care Team (Latest Contact Info) Description 12/07/2018 Orders Only [facility] Scanning, Provider Social History Tobacco Use Types Packs/Day Years Used Date Smoking Tobacco: Former Smokeless Tobacco: Never Alcohol Use Standard Drinks/Week Comments No 0 (1 standard drink = 0.6 oz pur e alcohol) minimal Comments Unknown Sex and Gender Information Value Date Recorded Sex Assigned at Not on file Legal Sex Female 3:00 AM SUPERVISOR FACEPIECE LINE Gender Identity Female 07/13/2018 9:28 AM CDT Sexual Orientation Not on file 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 Not on file Not on file documented as of this encounter Plan of Treatment Upcoming Encounters Date Type Department Care Team (Latest Contact Info) Description 02/10/2025 7:30 AM CDT Hospital Encounter [facility] [place] [address] [place] [phone] Frde SullivanSupervisor Pit And Auxiliaries, [address] [place] [address] Patricia Smith MD [address] [facility] [address] [place], [place] [phone] Atrial fibrillation, unspecified type (HCC) 02/10/2025 7:30 AM CDT - 02/10/2025 8:05 AM CDT Surgery [facility] [address] [phone] Patricia Smith MD [address] [facility] [address] [place], [place] [phone] CARDIOVERSION documented as of this encounter Procedures Procedure Name Priority Date/Time Associated Diagnosis Comments SCAN - LABS 12/07/2018 documented in this encounter Results * SCAN - LABS (12/07/2018) us Provider Scanning Final Result documented in this encounter Visit Diagnoses Not on filedocumented in this encounter Additional Health Concerns Infection Onset Date Last Indicated Resolved Time COVID: Suspected 03/13/2022 03/13/2022 03/13/2022 6:26 PM CDT documented as of this encounter Care Teams Director Dental Services Relationship Specialty Start Date End Date Elmer Wallace MD PCP - General 02/09/17 03/17/22 Lopez Pool MD PCP - General Family Medicine 03/18/22 Hema Castaneda MD Consulting Physician Cardiology 01/11/19 Colleen Bain MD Referring Physician Endocrinology Diabetes & Metabolism 04/07/19 Rosette Espinoza MD Referring Physician Cardiology 04/07/19 Jenni Hartley, RN Registered Nurse Cardiology 04/02/21 04/22/21 Meenu Jones NP Machinist Brake Cardiology 04/02/21 04/22/21 Jacqueline Schaeffer, cigar tobacco rehandler Failure Coordinator Cardiology 07/13/24 Jenni Hartley, RN Registered Nurse 07/13/24 08/01/24 Anat Hutchison 07/13/24 documented as of this encounter
--- OUTSIDE RECORDS SUMMARY | 2025-01-04 14:14 | XMS_ITS | Encounter Summary ---
Author Organization [facility] [employer] [facility] Address [address] [place] [address] Phone Care Team Providers Care Interventional Neuroradiologist Name Role Phone Elmer Wallace MD Primary Care Provider Hema Castaneda MD Unavailable [phone] Colleen Bain MD Unavailable [phone] Rosette Espinoza MD Unavailable [phone] Jenni Hartley RN Unavailable Unavailable Meenu Jones NP Unavailable [phone] Lopez Pool MD Primary Care Provider [phone] Jacqueline Schaeffer RN Unavailable Unavailable Jenni Hartley RN Unavailable Unavailable Anat Hutchison Unavailable Unavailable Encounter Details Date Type Department Care Team (Latest Contact Info) Description 09/09/2019 Orders Only [facility] Scanning, Provider Social History Tobacco Use Types Packs/Day Years Used Date Smoking Tobacco: Former Cigarettes Q uit: 2006 Smokeless Tobacco: Never Alcohol Use Standard Drinks/Week Comments No 0 (1 standard drink = 0.6 oz pur e alcohol) minimal Comments Unknown Sex and Gender Information Value Date Recorded Sex Assigned at Not on file Legal Sex Female 3:00 AM PRESS BRAKE OPERATOR Gender Identity Female 07/13/2018 9:28 AM CDT Sexual Orientation Not on file 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 Not on file Not on file documented as of this encounter Plan of Treatment Upcoming Encounters Date Type Department Care Team (Latest Contact Info) Description 02/10/2025 7:30 AM CDT Hospital Encounter [facility] [place] [address] [place] [address] Fred SullivanSpeed Belt SanderMD [address] [place] [address] Patricia Smith MD [address] [facility] [address] [place], [place] [phone] Atrial fibrillation, unspecified type (HCC) 02/10/2025 7:30 AM CDT - 02/10/2025 8:05 AM CDT Surgery [facility] [address] [phone] Patricia Smith MD [address] [facility] [address] [place] [phone] CARDIOVERSION documented as of this encounter Procedures Procedure Name Priority Date/Time Associated Diagnosis Comments SCAN - LABS 09/09/2019 documented in this encounter Results * SCAN - LABS (09/09/2019) us Provider Scanning Final Result documented in this encounter Visit Diagnoses Not on filedocumented in this encounter Additional Health Concerns Infection Onset Date Last Indicated Resolved Time COVID: Suspected 03/13/2022 03/13/2022 03/13/2022 6:26 PM CDT documented as of this encounter Care Teams Interventional Neuroradiologist Relationship Specialty Start Date End Date Elmer Wallace MD PCP - General 02/09/17 03/17/22 Lopez Pool MD PCP - General Family Medicine 03/18/22 Hema Castaneda MD Consulting Physician Cardiology 01/11/19 Colleen Bain MD Referring Physician Endocrinology Diabetes & Metabolism 04/07/19 Rosette Espinoza MD Referring Physician Cardiology 04/07/19 Jenni Hartley, RN Registered Nurse Cardiology 04/02/21 04/22/21 Meenu Jones NP Manager Supply Chain Planning Cardiology 04/02/21 04/22/21 Jacqueline Schaeffer, solar energy sales specialist Failure Coordinator Cardiology 07/13/24 Jenni Hartley, RN Registered Nurse 07/13/24 08/01/24 Anat Hutchison 07/13/24 documented as of this encounter
--- OUTSIDE RECORDS SUMMARY | 2025-01-04 14:14 | XMS_ITS | Encounter Summary ---
Author Organization [facility] Address [facility]ly [facility] [address] Care Team Providers Care Hydramatic Mechanic Name Role Phone Lopez Pool MD Primary Care Provider [phone] Lopez Pool MD Unavailable [phone] Reason for Visit * Reason Onset Date Comments Follow Up Call 06/17/2024 SFL 06/17-06/19/24 Encounter Details Date Type Department Care Team (Latest Contact Info) Description 06/22/2024 Hospital Follow-up Call [facility] Care Management [address] [place] [address] [place] [address] Brenda Weaver LPN Follow Up Call (SFL 06/17-06/19/24) Social History Tobacco Use Types Packs/Day Years [...] materials from doctor or pharmacy Never 12/30/2023 [facility] Utilities Answer Date Recorded In the past 12 months has e electric, gas, oil, or water company threatened to shut off services in your home? No 06/18/2024 Humiliation, Afraid, Rape, and Kick questionnair e Answer Date Recorded Within the last year, have y ou been afraid of your partner or ex-partner? No 06/18/2024 Within the last year, have y ou been humiliated or emotionally abused in other ways by your partner or ex-partner? No Within the last year, have y ou been kicked, hit, slapped, or otherwise physically hurt by your partner or ex-partner? No 06/18/2024 Within the last year, have y ou been raped or forced to have any kind of sexual activity by your partner or ex-partner? No 06/18/2024 Social Connection and Isolat ion Panel [NHANES] Answer Date Recorded In a typical week, how many times do you talk on the phone with family, friends, or neighbors? More than three times a week 02/22/2022 How often do you get togethe r with friends or relatives? Twice a week 02/22/2022 How often do you attend [facility] or adventism services? 1 to 4 times per year 02/22/2022 Do you belong to any clubs o r organizations such as jehovah's witness groups, unions, fraternal or athletic groups, or [...] care, and heating? Not hard at all 06/18/2024 PHQ-2 Answer Date Recorded PHQ-2 Score - If the patient scores above 3, please move on to questions 3-9 0 02/22/2022 [facility] - [...] the money to buy more. Never true 06/18/20 24 Within the past 12 months, t he food you bought just didn't last and you didn't have money to get more. Never true 06/18/2024 PRAPARE - Transportation Answer Date Re corded In the past 12 months, has l ack of transportation kept you from medical appointments or from getting medications? No 05/21 In the past 12 months, has l ack of transportation kept you from meetings, work, or from getting things needed for daily living? No 06/18/2024 Housing Stability Vital Sign Answer Sebas e [...] place to sleep or slept in a chcf (including now)? No 10/25/2023 Housing Stability Vital Sign Answer Sebas e Recorded In the last 12 months, was t here a time when you were not able to pay the mortgage or rent on time? No 06/18/2024 In the past 12 months, how m any times have you moved where you were living? 1 06/18/2024 At any time in the past 12 m [facility], were you homeless or living in a chcf (including now)? No 06/18/2024 Comments No Sex and Gender Information Value Date Recorded Sex Assigned at Female 11/01/2024 8:23 AM COAT REPAIR INSPECTOR Legal Sex Female 10:48 PM COAT REPAIR INSPECTOR Gender Identity Not on file Sexual Orientation Not on file documented as of this encounter Functional Status * Are you deaf or do you have serious difficulty hearing Answer Date of Assessment Author Status No 06/18/2024 2:32 AM CDT Wilson Blankenship RN Active * Are you blind or do you have serious difficulty seeing, even when wearing glasses? Answer Date of Assessment Author Status No 06/18/2024 2:32 AM CDT Wilson Blankenship RN Active * Do you have serious difficulty walking or climbing stairs? Answer Date of Assessment Author Status No 06/18/2024 2:32 AM CDT Wilson Blankenship RN Active * Do you have difficulty dressing or bathing? Answer Date of Assessment Author Status No 06/18/2024 2:32 AM CDT Wilson Blankenship RN Active * Because of a physical, mental, or emotional condition, do you have difficulty doing errands alone such as visiting a doctor's office or shopping? Answer Date of Assessment Author Status No 06/18/2024 2:32 AM CDT Wilson Blankenship RN Active documented as of this encounter Mental Status * Because of a physical, mental, or emotional condition, do you have serious difficulty concentrating, remembering, or making decisions? Answer Entry Date Author Status No 06/18/2024 2:32 AM CDT Wilson Blankenship RN Active documented in this encounter Plan of Treatment Upcoming Encounters Date Type Department Care Team (Late st Contact Info) Description 02/07/2025 8:16 AM CDT Hospital Encounter [facility] [address] [place], [place] [address] [address] [place] [address] [place] [phone] 02/07/2025 8:16 AM CDT - 02/07/2025 8:46 AM CDT Surgery [facility] [place] [address] [place] [address] [place] [address] [place] [phone] CYSTOSCOPY Scheduled Procedures Name Priority Associated Diagnoses Date/Ti mn CYSTOSCOPY 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 Author Safety Patient/family will have appropriate support at home upon discharge General No Priscila Díaz, INDEPENDENT SALES REPRESENTATIVE documented as of this encounter Visit Diagnoses Not on filedocumented in this encounter Additional Health Concerns Assessment Noted Time PHQ-9 Depression Total Score: 0 02/23/20 5:14 AM CDT documented as of this encounter Care Teams Hydramatic Mechanic Relationship Specialty Start Date End Date Lopez Pool MD [address] [place] [phone] PCP - General FAMILY PRACTICE 03/21/22 Lopez Pool MD [address] [place] [phone] FAMILY PRACTICE 03/21/22 documented as of this encounter
--- OUTSIDE RECORDS SUMMARY | 2025-01-04 14:15 | XMS_ITS | Encounter Summary ---
Author Organization [facility] [employer] of [facility] Address [address] [place] [address] Phone Care Team Providers Care Life Management Teacher Name Role Phone Elmer Wallace MD Primary Care Provider Hema Castaneda MD Unavailable [phone] Colleen Bain MD Unavailable [phone] Rosette Espinoza MD Unavailable [phone] Jenni Hartley RN Unavailable Unavailable Meenu Jones NP Unavailable [phone] Lopez Pool MD Primary Care Provider [phone] Jacqueline Schaeffer RN Unavailable Unavailable Jenni Hartley RN Unavailable Unavailable Anat Hutchison Unavailable Unavailable Encounter Details Date Type Department Care Team (Latest Contact Info) Description 09/02/2017 Orders Only [facility] CONVERSION Scanning, Provider Social History Tobacco Use Types Packs/Day Years Used Date Smoking Tobacco: Never Assessed Comments Unknown Sex and Gender Information Value Date Recorded Sex Assigned at Not on file Legal Sex Female 3:00 AM YOUTH MANAGER Gender Identity Female 07/13/2018 9:28 AM CDT Sexual Orientation Not on file documented as of this encounter Plan of Treatment Upcoming Encounters Date Type Department Care Team (Latest Contact Info) Description 02/10/2025 7:30 AM CDT Hospital Encounter [facility] 1 [place] [address] Fred SullivanDrum Loader And Unloader, [facility] [place] [address] Patricia Smith MD [address] [facility] [address] [place], [place] [id number] Atrial fibrillation, unspecified type (HCC) 02/10/2025 7:30 AM CDT - 02/10/2025 8:[address] [facility] 1 [place] [id number] Patricia Smith MD [address] [id number] CARDIOVERSION documented as of this encounter Procedures Procedure Name Priority Date/Time Associated Diagnosis Comments PULMONARY FUNCTION TEST (PFT) 09/02/2017 10:23 AM YOUTH MANAGER documented in this encounter Results * PULMONARY FUNCTION TEST (PFT) (09/02/2017 10:23 AM YOUTH MANAGER) Anatomical Region Laterality Modality PFT us Provider Scanning PFT ORDERABLES Final Result documented in this encounter Visit Diagnoses Not on filedocumented in this encounter Additional Health Concerns Infection Onset Date Last Indicated Resolved Time COVID: Suspected 03/13/2022 03/13/2022 03/13/2022 6:26 PM CDT documented as of this encounter Care Teams Life Management Teacher Relationship Specialty Start Date End Date Elmer Wallace MD PCP - General 02/09/17 03/17/22 Lopez Pool MD PCP - General Family Medicine 03/18/22 Hema Castaneda MD Consulting Physician Cardiology 01/11/19 Colleen Bain MD Referring Physician Endocrinology Diabetes & Metabolism 04/07/19 Rosette Espinoza MD Referring Physician Cardiology 04/07/19 Jenni Hartley, RN Registered Nurse Cardiology 04/02/21 04/22/21 Meenu Jones NP Pediatric Cns Cardiology 04/02/21 04/22/21 Jacqueline Schaeffer, reed or wind instrument tuner Failure Coordinator Cardiology 07/13/24 Jenni Hartley, RN Registered Nurse 07/13/24 08/01/24 Anat Hutchison 07/13/24 documented as of this encounter
--- OUTSIDE RECORDS SUMMARY | 2025-01-04 14:15 | XMS_ITS | Encounter Summary ---
Author Organization [facility] of [facility] Address [address] [place] [address] Phone Care Team Providers Care Buyers' Agent Name Role Phone Elmer Wallace MD Primary Care Provider Hema Castaneda MD Unavailable [phone] Colleen Bain MD Unavailable [phone] Rosette Espinoza MD Unavailable [phone] Jenni Hartley RN Unavailable Unavailable Meenu Jones NP Unavailable [phone] Lopez Pool MD Primary Care Provider [phone] Jacqueline Schaeffer RN Unavailable Unavailable Jenni Hartley RN Unavailable Unavailable Anat Hutchison Unavailable Unavailable Encounter Details Date Type Department Care Team (Late st Contact Info) Description 01/20/2018 [facility] ProviderLexi MD [address] [place] [address] Social History Tobacco Use Types Packs/Day Years Used Date Smoking Tobacco: Former Comments Unknown Sex and Gender Information Value Date Recorded Sex Assigned at Not on file Legal Sex Female 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 Gender Identity Female 07/13/2018 9:28 AM CDT Sexual Orientation Not on file documented as of this encounter Plan of Treatment Upcoming Encounters Date Type Department Care Team (Latest Contact Info) Description 02/10/2025 7:30 AM CDT Hospital Encounter [facility] 1 [place] [address] Fred SullivanEnrollment Advisor, [address] [place] [address] Patricia Smith MD [address] [id number] Atrial fibrillation, unspecified type (HCC) 02/10/2025 7:30 AM CDT - 02/10/2025 8:05 AM CDT Surgery [facility] [place] 1 [place] [address] Patricia Smith MD [address] [id number] CARDIOVERSION documented as of this encounter Procedures Procedure Name Priority Date/Time Associated Diagnosis Comments CARDIOLOGY REPORT 01/20/2018 documented in this encounter Results * CARDIOLOGY REPORT (01/20/2018) Anatomical Region Laterality Modality Other Narrative 01/20/2018 Ordered by an unspecified provider. us Historical Provider CV CARDIAC SERVICES RUPA POSADA Final Result documented in this encounter Visit Diagnoses Not on filedocumented in this encounter Additional Health Concerns Infection Onset Date Last Indicated Resolved Time COVID: Suspected 03/13/2022 03/13/2022 03/13/2022 6:26 PM CDT documented as of this encounter Care Teams Buyers' Agent Relationship Specialty Start Date End Date Elmer Wallace MD PCP - General 02/09/17 03/17/22 Lopez Pool MD PCP - General Family Medicine 03/18/22 Hema Castaneda MD Consulting Physician Cardiology 01/11/19 Colleen Bain MD Referring Physician Endocrinology Diabetes & Metabolism 04/07/19 Rosette Espinoza MD Referring Physician Cardiology 04/07/19 Jenni Hartley, RN Registered Nurse Cardiology 04/02/21 04/22/21 Meenu Jones NP Staff Software Engineer Cardiology 04/02/21 04/22/21 Jacqueline Schaeffer, river guide Failure Coordinator Cardiology 07/13/24 Jenni Hartley, RN Registered Nurse 07/13/24 08/01/24 Anat Hutchison 07/13/24 documented as of this encounter
--- OUTSIDE RECORDS SUMMARY | 2025-01-04 14:15 | XMS_ITS | Encounter Summary ---
Author Organization [facility] Healthcare Address [address] [place] [address] Care Team Providers Care Finance Intern Name Role Phone Hema Castaneda MD Unavailable [phone] Colleen Bain MD Unavailable [phone] Rosette Espinoza MD Unavailable [phone] Lopez Pool MD Primary Care Provider [phone] Jacqueline Schaeffer RN Unavailable Unavailable Jenni Hartley RN Unavailable Unavailable Anat Hutchison Unavailable Unavailable Encounter Details Date Type Department Care Team (Late st Contact Info) Description 07/01/2022 Telephone [facility] Transplant Heart [address] [facility] [address] [phone] [place] [address] Jennifer Acuna Social History Tobacco Use Types Packs/Day Years [...] How often do you attend chur or jain services? Never 03/14/2022 Do you belong to any clubs o r organizations such as muslim groups, unions, fraternal or athletic groups, or [...] place to sleep or slept in a custodial (including now)? 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 Not on file Not on file Not on file documented as of this encounter Plan of Treatment Upcoming Encounters Date Type Department Care Team (Latest Contact Info) Description 02/10/2025 7:30 AM CDT Hospital Encounter [facility] Vascular [place] 1 [place] [address] Fred SullivanDelivery Of Shopping News, [address] [place], [place] [id number] Patricia Smith MD [address] [employer] [address] [id number] Atrial fibrillation, unspecified type (HCC) 02/10/2025 7:30 AM CDT - 02/10/2025 8:05 AM CDT Surgery [facility] Heart [facility] Vascular [address] [address] Patricia Smith MD [address] [employer] [address] [id number] CARDIOVERSION documented as of this encounter Visit Diagnoses Not on filedocumented in this encounter Care Teams Finance Intern Relationship Specialty Start Date End Date Lopez Pool MD PCP - General Family Medicine 03/18/22 Hema Castaneda MD Consulting Physician Cardiology 01/11/19 Colleen Bain MD Referring Physician Endocrinology Diabetes & Metabolism 04/07/19 Rosette Espinoza MD Referring Physician Cardiology 04/07/19 Jacqueline Schaeffer, calenderer Failure Coordinator Cardiology 07/13/24 Jenni Hartley, RN Registered Nurse 07/13/24 08/01/24 Anat Hutchison 07/13/24 documented as of this encounter
--- OUTSIDE RECORDS SUMMARY | 2025-01-04 14:15 | XMS_ITS | Encounter Summary ---
Author Organization [facility] Healthcare Address [address] [place] [address] Care Team Providers Care Batcher Operator Name Role Phone Hema Castaneda MD Unavailable [phone] Colleen Bain MD Unavailable [phone] Rosette Espinoza MD Unavailable [phone] Lopez Pool MD Primary Care Provider [phone] Jacqueline Schaeffer RN Unavailable Unavailable Jenni Hartley RN Unavailable Unavailable Anat Hutchison Unavailable Unavailable Encounter Details Date Type Department Care Team (Late st Contact Info) Description 03/18/2022 Documentation [facility] Case Management 1 [place] [address] Myla Gomez RN Social History Tobacco Use Types Packs/Day Years [...] week 03/14/2022 How often do you attend [facility] or latter day services? Never 03/14/2022 Do you belong to any clubs o r organizations such as zoroastrianism groups, unions, fraternal or athletic groups, or [...] in a longterm (including now)? 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 Never 03/18/2022 6:56 AM WILLT Lorna Garcia RN Q2: How many drinks containing alcohol do you have on a typical day when you are drinking? Patient does not drink 03/18/2022 6:56 AM WILLT Lorna Garcia RN Q3: How often do you have six or more drinks on one occasion? Never 03/18/2022 6:56 AM WILLT Lorna Garcia RN documented as of this encounter Plan of Treatment Upcoming Encounters Date Type Department Care Team (Latest Contact Info) Description 02/10/2025 7:30 AM CDT Hospital Encounter [facility] [address] [place] [address] Nate, Sole Ruffer, [address] [place], [place] [phone] Patricia Smith MD [address] [phone] Atrial fibrillation, unspecified type (HCC) 02/10/2025 7:30 AM CDT - 02/10/2025 8:05 AM CDT Surgery [facility] [address] [place] [address] Patricia Smith MD [address] [id number] CARDIOVERSION documented as of this encounter Visit Diagnoses Not on filedocumented in this encounter Care Teams Batcher Operator Relationship Specialty Start Date End Date Lopez Pool MD PCP - General Family Medicine 03/18/22 Hema Castaneda MD Consulting Physician Cardiology 01/11/19 Colleen Bain MD Referring Physician Endocrinology Diabetes & Metabolism 04/07/19 Rosette Espinoza MD Referring Physician Cardiology 04/07/19 Jacqueline Schaeffer, director database Failure Coordinator Cardiology 07/13/24 Jenni Hartley, RN Registered Nurse 07/13/24 08/01/24 Anat Hutchison 07/13/24 documented as of this encounter
--- OUTSIDE RECORDS SUMMARY | 2025-01-04 14:15 | XMS_ITS | Encounter Summary ---
Author Organization [facility] of [facility] Address [address] [place] [address] Phone Care Team Providers Care Soda Flaker Name Role Phone Elmer Wallace MD Primary Care Provider [phone] Hema Castaneda MD Unavailable [phone] Colleen Bain MD Unavailable [phone] Rosette Espinoza MD Unavailable [phone] Jenni Hartley RN Unavailable Unavailable Meenu Jones NP Unavailable [phone] Lopez Pool MD Primary Care Provider [phone] Jacqueline Schaeffer RN Unavailable Unavailable Jenni Hartley RN Unavailable Unavailable Anat Hutchison Unavailable Unavailable Encounter Details Date Type Department Care Team (Late st Contact Info) Description 11/29/2017 Orders Only [facility] CAR CLINCONV ProviderLexi MD [address] [place] [address] Social History Tobacco Use Types Packs/Day Years Used Date Smoking Tobacco: Former Comments Unknown Sex and Gender Information Value Date Recorded Sex Assigned at Not on file Legal Sex Female 3:00 AM TONGUER Gender Identity Female 07/13/2018 9:28 AM CDT Sexual Orientation Not on file documented as of this encounter Plan of Treatment Upcoming Encounters Date Type Department Care Team (Latest Contact Info) Description 02/10/2025 7:30 AM CDT Hospital Encounter Heart and Vascular Center 1 [place] [phone] Nate, Manager Bilingual, [address] [place] [address] Patricia Smith MD [address] [facility] [address] [place] [address] Atrial fibrillation, unspecified type (HCC) 02/10/2025 7:30 AM CDT - 02/10/2025 8:05 AM CDT Surgery [facility] 1 [place] [address] Patricia Smith MD [address] [facility] [address] [place], [place] [phone] CARDIOVERSION documented as of this encounter Procedures Procedure Name Priority Date/Time Associated Diagnosis Comments CARDIOLOGY REPORT 11/29/2017 CARDIOLOGY REPORT 11/29/2017 CARDIOLOGY REPORT 11/29/2017 CARDIOLOGY REPORT 11/29/2017 CARDIOLOGY REPORT 11/29/2017 CARDIOLOGY REPORT 11/29/2017 CARDIOLOGY REPORT 11/29/2017 CARDIOLOGY REPORT 11/29/2017 CARDIOLOGY REPORT 11/29/2017 CARDIOLOGY REPORT 11/29/2017 CARDIOLOGY REPORT 11/29/2017 CARDIOLOGY REPORT 11/29/2017 CARDIOLOGY REPORT 11/29/2017 CARDIOLOGY REPORT 11/29/2017 documented in this encounter Results * CARDIOLOGY REPORT (11/29/2017) Anatomical Region Laterality Modality Other Narrative 11/29/2017 Ordered by an unspecified provider. [facility] Provider CV CARDIAC SERVICES PROCE DURES Final Result * CARDIOLOGY REPORT (11/29/2017) Anatomical Region Laterality Modality Other Narrative 11/29/2017 Ordered by an unspecified provider. [facility] Provider CV CARDIAC SERVICES PROCE DURES Final Result * CARDIOLOGY REPORT (11/29/2017) Anatomical Region Laterality Modality Other Narrative 11/29/2017 Ordered by an unspecified provider. [facility] Provider CV CARDIAC SERVICES PROCE DURES Final Result * CARDIOLOGY REPORT (11/29/2017) Anatomical Region Laterality Modality Other Narrative 11/29/2017 Ordered by an unspecified provider. [facility] Provider CV CARDIAC SERVICES PROCE DURES Final Result * CARDIOLOGY REPORT (11/29/2017) Anatomical Region Laterality Modality Other Narrative 11/29/2017 Ordered by an unspecified provider. [facility] Provider CV CARDIAC SERVICES PROCE DURES Final Result * CARDIOLOGY REPORT (11/29/2017) Anatomical Region Laterality Modality Other Narrative 11/29/2017 Ordered by an unspecified provider. [facility] Provider CV CARDIAC SERVICES PROCE DURES Final Result * CARDIOLOGY REPORT (11/29/2017) Anatomical Region Laterality Modality Other Narrative 11/29/2017 Ordered by an unspecified provider. [facility] Provider CV CARDIAC SERVICES PROCE DURES Final Result * CARDIOLOGY REPORT (11/29/2017) Anatomical Region Laterality Modality Other Narrative 11/29/2017 Ordered by an unspecified provider. [facility] Provider CV CARDIAC SERVICES PROCE DURES Final Result * CARDIOLOGY REPORT (11/29/2017) Anatomical Region Laterality Modality Other Narrative 11/29/2017 Ordered by an unspecified provider. [facility] Provider CV CARDIAC SERVICES PROCE DURES Final Result * CARDIOLOGY REPORT (11/29/2017) Anatomical Region Laterality Modality Other Narrative 11/29/2017 Ordered by an unspecified provider. [facility] Provider CV CARDIAC SERVICES PROCE DURES Final Result * CARDIOLOGY REPORT (11/29/2017) Anatomical Region Laterality Modality Other Narrative 11/29/2017 Ordered by an unspecified provider. [facility] Provider CV CARDIAC SERVICES PROCE DURES Final Result * CARDIOLOGY REPORT (11/29/2017) Anatomical Region Laterality Modality Other Narrative 11/29/2017 Ordered by an unspecified provider. [facility] Provider CV CARDIAC SERVICES PROCE DURES Final Result * CARDIOLOGY REPORT (11/29/2017) Anatomical Region Laterality Modality Other Narrative 11/29/2017 Ordered by an unspecified provider. [facility] Provider CV CARDIAC SERVICES PROCE DURES Final Result * CARDIOLOGY REPORT (11/29/2017) Anatomical Region Laterality Modality Other Narrative 11/29/2017 Ordered by an unspecified provider. Result [facility] Provider CV CARDIAC SERVICES PROCE DURES Final Result documented in this encounter Visit Diagnoses Not on filedocumented in this encounter Additional Health Concerns Infection Onset Date Last Indicated Resolved Time COVID: Suspected 03/13/2022 03/13/2022 03/13/2022 6:26 PM CDT documented as of this encounter Care Teams Soda Flaker Relationship Specialty Start Date End Date Elmer Wallace MD PCP - General 02/09/17 03/17/22 Lopez Pool MD PCP - General Family Medicine 03/18/22 Hema Castaneda MD Consulting Physician Cardiology 01/11/19 Colleen Bain MD Referring Physician Endocrinology Diabetes & Metabolism 04/07/19 Rosette Espinoza MD Referring Physician Cardiology 04/07/19 Jenni Hartley, RN Registered Nurse Cardiology 04/02/21 04/22/21 Meenu Jones NP Multiple Coil Winder Cardiology 04/02/21 04/22/21 Jacqueline Schaeffer, load out supervisor Failure Coordinator Cardiology 07/13/24 Jenni Hartley, RN Registered Nurse 07/13/24 08/01/24 Anat Hutchison 07/13/24 documented as of this encounter
--- OUTSIDE RECORDS SUMMARY | 2025-01-04 14:15 | XMS_ITS | Encounter Summary ---
Author Organization [facility] Address [address] [place] [address] Phone Care Team Providers Care Commercial Real Estate Assistant Name Role Phone Elmer Wallace MD Primary Care Provider Hema Castaneda MD Unavailable [phone] Colleen Bain MD Unavailable [phone] Rosette Espinoza MD Unavailable [phone] Jenni Hartley RN Unavailable Unavailable Meenu Jones NP Unavailable [phone] Lopez Pool MD Primary Care Provider [phone] Jacqueline Schaeffer RN Unavailable Unavailable Jenni Hartley RN Unavailable Unavailable Anat Hutchison Unavailable Unavailable Encounter Details Date Type Department Care Team (Late st Contact Info) Description 02/25/2018 Orders Only [facility] CAR CLINCONV ProviderLexi MD [address] [place] [address] Social History Tobacco Use Types Packs/Day Years Used Date Smoking Tobacco: Former Comments Unknown Sex and Gender Information Value Date Recorded Sex Assigned at Not on file Legal Sex Female 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 Gender Identity Female 07/13/2018 9:28 AM CDT Sexual Orientation Not on file documented as of this encounter Plan of Treatment Upcoming Encounters Date Type Department Care Team (Latest Contact Info) Description 02/10/2025 7:30 AM CDT Hospital Encounter [facility] Heart and Vascular Center 1 [place] [phone] Nate, Toolroom Checker, [address] [place] [address] Patricia Smith MD [address] [facility] [address] [place] [address] Atrial fibrillation, unspecified type (HCC) 02/10/2025 7:30 AM CDT - 02/10/2025 8:05 AM CDT Surgery [facility] and [facility] 1 [place] [phone] Patricia Smith MD [address] [facility] [address] [place], [place] [phone] CARDIOVERSION documented as of this encounter Procedures Procedure Name Priority Date/Time Associated Diagnosis Comments CARDIOLOGY REPORT 02/25/2018 CARDIOLOGY REPORT 02/25/2018 CARDIOLOGY REPORT 02/25/2018 CARDIOLOGY REPORT 02/25/2018 CARDIOLOGY REPORT 02/25/2018 CARDIOLOGY REPORT 02/25/2018 CARDIOLOGY REPORT 02/25/2018 CARDIOLOGY REPORT 02/25/2018 documented in this encounter Results * CARDIOLOGY REPORT (02/25/2018) Anatomical Region Laterality Modality Other Narrative 02/25/2018 Ordered by an unspecified provider. Historical Provider CV CARDIAC SERVICES PROCE DURES Final Result * CARDIOLOGY REPORT (02/25/2018) Anatomical Region Laterality Modality Other Narrative 02/25/2018 Ordered by an unspecified provider. us Historical Provider CV CARDIAC SERVICES PROCE DURES Final Result * CARDIOLOGY REPORT (02/25/2018) Anatomical Region Laterality Modality Other Narrative 02/25/2018 Ordered by an unspecified provider. [facility] Provider CV CARDIAC SERVICES PROCE DURES Final Result * CARDIOLOGY REPORT (02/25/2018) Anatomical Region Laterality Modality Other Narrative 02/25/2018 Ordered by an unspecified provider. [facility] Provider CV CARDIAC SERVICES PROCE DURES Final Result * CARDIOLOGY REPORT (02/25/2018) Anatomical Region Laterality Modality Other Narrative 02/25/2018 Ordered by an unspecified provider. [facility] Provider CV CARDIAC SERVICES PROCE DURES Final Result * CARDIOLOGY REPORT (02/25/2018) Anatomical Region Laterality Modality Other Narrative 02/25/2018 Ordered by an unspecified provider. [facility] Provider CV CARDIAC SERVICES PROCE DURES Final Result * CARDIOLOGY REPORT (02/25/2018) Anatomical Region Laterality Modality Other Narrative 02/25/2018 Ordered by an unspecified provider. [facility] Provider CV CARDIAC SERVICES PROCE DURES Final Result * CARDIOLOGY REPORT (02/25/2018) Anatomical Region Laterality Modality Other Narrative 02/25/2018 Ordered by an unspecified provider. Result [facility] Provider CV CARDIAC SERVICES PROCE DURES Final Result documented in this encounter Visit Diagnoses Not on filedocumented in this encounter Additional Health Concerns Infection Onset Date Last Indicated Resolved Time COVID: Suspected 03/13/2022 03/13/2022 03/13/2022 6:26 PM CDT documented as of this encounter Care Teams Commercial Real Estate Assistant Relationship Specialty Start Date End Date Elmer Wallace MD PCP - General 02/09/17 03/17/22 Lopez Pool MD PCP - General Family Medicine 03/18/22 Hema Castaneda MD Consulting Physician Cardiology 01/11/19 Colleen Bain MD Referring Physician Endocrinology Diabetes & Metabolism 04/07/19 Rosette Espinoza MD Referring Physician Cardiology 04/07/19 Jenni Hartley, RN Registered Nurse Cardiology 04/02/21 04/22/21 Meenu Jones NP Caisson Worker Cardiology 04/02/21 04/22/21 Jacqueline Schaeffer, cooker soda Failure Coordinator Cardiology 07/13/24 Jenni Hartley, RN Registered Nurse 07/13/24 08/01/24 Anat Hutchison 07/13/24 documented as of this encounter
--- OUTSIDE RECORDS SUMMARY | 2025-01-04 14:15 | XMS_ITS | Encounter Summary ---
Author Organization [facility] Address [address] [place] [address] Phone Care Team Providers Care Cattery Operator Name Role Phone Elmer Wallace MD Primary Care Provider Hmea Castaneda MD Unavailable [phone] Colleen Bain MD Unavailable [phone] Rosette Espinoza MD Unavailable [phone] Jenni Hartley RN Unavailable Unavailable Meenu Jones NP Unavailable [phone] Lopez Pool MD Primary Care Provider [phone] Jacqueline Schaeffer RN Unavailable Unavailable Jenni Hartley RN Unavailable Unavailable Anat Hutchison Unavailable Unavailable Encounter Details Date Type Department Care Team (Late st Contact Info) Description 01/18/2018 Orders Only [facility]INCON[facility] ProviderLexi MD [address] [place] [address] Social History Tobacco Use Types Packs/Day Years Used Date Smoking Tobacco: Former Comments Unknown Sex and Gender Information Value Date Recorded Sex Assigned at Not on file Legal Sex Female 3:00 AM SLIP FEEDER Gender Identity Female 07/13/2018 9:28 AM CDT Sexual Orientation Not on file documented as of this encounter Plan of Treatment Upcoming Encounters Date Type Department Care Team (Latest Contact Info) Description 02/10/2025 7:30 AM CDT Hospital Encounter [facility] [address] [place] [phone] Nate, Oil Dispenser, [address] [place] [address] Patricia Smith MD [address] [facility] [address] [place] [address] Atrial fibrillation, unspecified type (HCC) 02/10/2025 7:30 AM CDT - 02/10/2025 8:05 AM CDT Surgery [facility] [place] [address] [place] [phone] Patricia Smith MD [address] [facility] [address] [address] [address] [address] [place], [place] [id number] CARDIOVERSION documented as of this encounter Procedures Procedure Name Priority Date/Time Associated Diagnosis Comments CARDIOLOGY REPORT 01/18/2018 CARDIOLOGY REPORT 01/18/2018 CARDIOLOGY REPORT 01/18/2018 CARDIOLOGY REPORT 01/18/2018 CARDIOLOGY REPORT 01/18/2018 CARDIOLOGY REPORT 01/18/2018 CARDIOLOGY REPORT 01/18/2018 CARDIOLOGY REPORT 01/18/2018 CARDIOLOGY REPORT 01/18/2018 CARDIOLOGY REPORT 01/18/2018 documented in this encounter Results * CARDIOLOGY REPORT (01/18/2018) Anatomical Region Laterality Modality Other Narrative 01/18/2018 Ordered by an unspecified provider. Historical Provider [facility] RUPA POSADA Final Result * CARDIOLOGY REPORT (01/18/2018) Anatomical Region Laterality Modality Other Narrative 01/18/2018 Ordered by an unspecified provider. [facility] Provider MD [facility] CARDIAC SERVICES PROCE DURES Final Result * CARDIOLOGY REPORT (01/18/2018) Anatomical Region Laterality Modality Other Narrative 01/18/2018 Ordered by an unspecified provider. Result [facility] Provider CV CARDIAC SERVICES PROCE DURES Final Result * CARDIOLOGY REPORT (01/18/2018) Anatomical Region Laterality Modality Other Narrative 01/18/2018 Ordered by an unspecified provider. Result [facility] Provider CV CARDIAC SERVICES PROCE DURES Final Result * CARDIOLOGY REPORT (01/18/2018) Anatomical Region Laterality Modality Other Narrative 01/18/2018 Ordered by an unspecified provider. Result [facility] Provider CV CARDIAC SERVICES PROCE DURES Final Result * CARDIOLOGY REPORT (01/18/2018) Anatomical Region Laterality Modality Other Narrative 01/18/2018 Ordered by an unspecified provider. Result [facility] Provider CV CARDIAC SERVICES PROCE DURES Final Result * CARDIOLOGY REPORT (01/18/2018) Anatomical Region Laterality Modality Other Narrative 01/18/2018 Ordered by an unspecified provider. Result [facility] Provider CV CARDIAC SERVICES PROCE DURES Final Result * CARDIOLOGY REPORT (01/18/2018) Anatomical Region Laterality Modality Other Narrative 01/18/2018 Ordered by an unspecified provider. Result [facility] Provider CV CARDIAC SERVICES PROCE DURES Final Result * CARDIOLOGY REPORT (01/18/2018) Anatomical Region Laterality Modality Other Narrative 01/18/2018 Ordered by an unspecified provider. Result [facility] Provider CV CARDIAC SERVICES PROCE DURES Final Result * CARDIOLOGY REPORT (01/18/2018) Anatomical Region Laterality Modality Other Narrative 01/18/2018 Ordered by an unspecified provider. Result [facility] Provider CV CARDIAC SERVICES PROCE DURES Final Result documented in this encounter Visit Diagnoses Not on filedocumented in this encounter Additional Health Concerns Infection Onset Date Last Indicated Resolved Time COVID: Suspected 03/13/2022 03/13/2022 03/13/2022 6:26 PM CDT documented as of this encounter Care Teams Cattery Operator Relationship Specialty Start Date End Date Elmer Wallace MD PCP - General 02/09/17 03/17/22 Lopez Pool MD PCP - General Family Medicine 03/18/22 Hema Castaneda MD Consulting Physician Cardiology 01/11/19 Colleen Bain MD Referring Physician Endocrinology Diabetes & Metabolism 04/07/19 Rosette Espinoza MD Referring Physician Cardiology 04/07/19 Jenni Hartley, RN Registered Nurse Cardiology 04/02/21 04/22/21 Meenu Jones NP Fireman Cardiology 04/02/21 04/22/21 Jacqueline Schaeffer, orthopedics teacher Failure Coordinator Cardiology 07/13/24 Jenni Hartley, RN Registered Nurse 07/13/24 08/01/24 Anat Hutchison 07/13/24 documented as of this encounter
--- OUTSIDE RECORDS SUMMARY | 2025-01-04 14:15 | XMS_ITS | Encounter Summary ---
Author Organization [facility] [employer] [facility] Address [address] [place] [address] Phone Care Team Providers Care Electronic Repair Troubleshooter Name Role Phone Elmer Wallace MD Primary Care Provider Hema Castaneda MD Unavailable [phone] Colleen Bain MD Unavailable [phone] Rosette Espinoza MD Unavailable [phone] Jenni Hartley RN Unavailable Unavailable Meenu Jones NP Unavailable [phone] Lopez Pool MD Primary Care Provider [phone] Jacqueline Schaeffer RN Unavailable Unavailable Jenni Hartley RN Unavailable Unavailable Anat Hutchison Unavailable Unavailable Encounter Details Date Type Department Care Team (Late st Contact Info) Description 12/28/2017 Orders Only [facility] CAR CLINCONV ProviderLexi MD [address] [place] [address] Social History Tobacco Use Types Packs/Day Years Used Date Smoking Tobacco: Former Comments Unknown Sex and Gender Information Value Date Recorded Sex Assigned at Not on file Legal Sex Female 3:00 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 ASSISTANT Gender Identity Female 07/13/2018 9:28 AM CDT Sexual Orientation Not on file documented as of this encounter Plan of Treatment Upcoming Encounters Date Type Department Care Team (Latest Contact Info) Description 02/10/2025 7:30 AM CDT Hospital Encounter [facility] 1 [place] [phone] Nate, Lending Manager, [address] [place] [address] Patrciia Smith MD [address] [place] [address] Atrial fibrillation, unspecified type (HCC) 02/10/2025 7:30 AM CDT - 02/10/2025 8:05 AM CDT Surgery [facility] 1 [place] [phone] Patricia Smith MD [address] [place], [place] [id number] CARDIOVERSION documented as of this encounter Procedures Procedure Name Priority Date/Time Associated Diagnosis Comments CARDIOLOGY REPORT 12/28/2017 CARDIOLOGY REPORT 12/28/2017 CARDIOLOGY REPORT 12/28/2017 CARDIOLOGY REPORT 12/28/2017 CARDIOLOGY REPORT 12/28/2017 CARDIOLOGY REPORT 12/28/2017 CARDIOLOGY REPORT 12/28/2017 documented in this encounter Results * CARDIOLOGY REPORT (12/28/2017) Anatomical Region Laterality Modality Other Narrative 12/28/2017 Ordered by an unspecified provider. us Historical Provider [facility] CARDIAC SERVICES PROCE DURES Final Result * CARDIOLOGY REPORT (12/28/2017) Anatomical Region Laterality Modality Other Narrative 12/28/2017 Ordered by an unspecified provider. us Historical Provider [facility] CARDIAC SERVICES PROCE DURES Final Result * CARDIOLOGY REPORT (12/28/2017) Anatomical Region Laterality Modality Other Narrative 12/28/2017 Ordered by an unspecified provider. Historical Provider MD [facility] CARDIAC SERVICES PROCE DURES Final Result * CARDIOLOGY REPORT (12/28/2017) Anatomical Region Laterality Modality Other Narrative 12/28/2017 Ordered by an unspecified provider. [facility] Provider CV CARDIAC SERVICES PROCE DURES Final Result * CARDIOLOGY REPORT (12/28/2017) Anatomical Region Laterality Modality Other Narrative 12/28/2017 Ordered by an unspecified provider. [facility] Provider CV CARDIAC SERVICES PROCE DURES Final Result * CARDIOLOGY REPORT (12/28/2017) Anatomical Region Laterality Modality Other Narrative 12/28/2017 Ordered by an unspecified provider. [facility] Provider CV CARDIAC SERVICES PROCE DURES Final Result * CARDIOLOGY REPORT (12/28/2017) Anatomical Region Laterality Modality Other Narrative 12/28/2017 Ordered by an unspecified provider. [facility] Provider CV CARDIAC SERVICES PROCE DURES Final Result documented in this encounter Visit Diagnoses Not on filedocumented in this encounter Additional Health Concerns Infection Onset Date Last Indicated Resolved Time COVID: Suspected 03/13/2022 03/13/2022 03/13/2022 6:26 PM CDT documented as of this encounter Care Teams Electronic Repair Troubleshooter Relationship Specialty Start Date End Date Elmer Wallace MD PCP - General 02/09/17 03/17/22 Lopez Pool MD PCP - General Family Medicine 03/18/22 Hema Castaneda MD Consulting Physician Cardiology 01/11/19 Colleen Bain MD Referring Physician Endocrinology Diabetes & Metabolism 04/07/19 Rosette Espinoza MD Referring Physician Cardiology 04/07/19 Jenni Hartley, RN Registered Nurse Cardiology 04/02/21 04/22/21 Meenu Jones NP Quality Assurance Project Manager Cardiology 04/02/21 04/22/21 Jacqueline Schaeffer, beaming inspector Failure Coordinator Cardiology 07/13/24 Jenni Hartley, RN Registered Nurse 07/13/24 08/01/24 Anat Hutchison 07/13/24 documented as of this encounter
--- OUTSIDE RECORDS SUMMARY | 2025-01-04 14:15 | XMS_ITS | Encounter Summary ---
Author Organization [facility] Address [address] [place] [address] Care Team Providers Care Bone Char Kiln Operator Name Role Phone Elmer Wallace MD Primary Care Provider [phone] Lopez Pool MD Primary Care Provider [phone] Lopez Pool MD Unavailable [phone] Encounter Details Date Type Department Care Team (Late st Contact Info) Description 01/02/2018 Abstract [facility] CONVERSION [address] [place] [address] , Generic Conversion, Social History Tobacco Use Types Packs/Day Years Used Date Smoking Tobacco: Never Assessed Comments Unknown Sex and Gender Information Value Date Recorded Sex Assigned at Female 11/01/2024 8:23 AM SPARK PLUG ASSEMBLER Legal Sex Female 10:48 PM SPARK PLUG ASSEMBLER Gender Identity Not on file Sexual Orientation Not on file documented as of this encounter Plan of Treatment Upcoming Encounters Date Type Department Care Team (Late st Contact Info) Description 02/07/2025 8:16 AM CDT Hospital Encounter [place] [address] [place] [address] [place] [address] [place] [address] 02/07/2025 8:16 AM CDT - 02/07/2025 8:46 AM CDT Surgery [place] [place] [address] [place] [address] [place] [address] [place] [phone] CYSTOSCOPY Scheduled Procedures Name Priority Associated Diagnoses Date/Ti me CYSTOSCOPY 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 02/07/2025 8:16 AM CDT documented as of this encounter Visit Diagnoses Not on filedocumented in this encounter Additional Health Concerns Infection Onset Date Last Indicated Resolved Time COVID-19 Rule Out 03/24/2020 03/24/2020 03/25/2020 6:29 PM CDT COVID-19 Rule Out 06/30/2020 06/30/2020 07/01/2020 7:55 PM CDT COVID-19 Rule Out 02/02/2021 02/02/2021 02/03/2021 1:02 PM CDT COVID-19 Rule Out 10/06/2021 10/06/2021 10/06/2021 8:43 PM SPARK PLUG ASSEMBLER COVID-19 Rule Out 02/14/2022 02/14/2022 02/14/2022 8:59 AM CDT COVID-19 Rule Out 02/22/2022 02/22/2022 02/22/2022 2:34 AM CDT COVID-19 Rule Out 02/22/2022 02/22/2022 02/23/2022 11:16 AM CDT COVID-19 Rule Out 06/02/2022 06/02/2022 06/02/2022 9:32 PM CDT COVID-19 Confirmed 06/02/2022 06/02/2022 12:32 AM CDT COVID-19 Rule Out 09/03/2022 09/03/2022 09/03/2022 3:29 PM SPARK PLUG ASSEMBLER COVID-19 Rule Out 10/25/2023 10/25/2023 10/25/2023 2:09 PM SPARK PLUG ASSEMBLER documented as of this encounter Care Teams Bone Char Kiln Operator Relationship Specialty Start Date End Date Elmer Wallace MD [address] [place] [address] PCP - General FAMILY PRACTICE 06/14/19 03/20/22 Lopez Pool MD [address] [place] [address] PCP - General FAMILY PRACTICE 03/21/22 Lopez Pool MD [address] [address] FAMILY PRACTICE 03/21/22 documented as of this encounter
--- OUTSIDE RECORDS SUMMARY | 2025-01-04 14:15 | XMS_ITS | Encounter Summary ---
Author Organization [facility] Address [address] [place] [address] Phone Care Team Providers Care Gemologist Name Role Phone Hema Castaneda MD Unavailable [phone] Colleen Bain MD Unavailable [phone] Rosette Espinoza MD Unavailable [phone] Lopez Pool MD Primary Care Provider [phone] Jacqueline Schaeffer RN Unavailable Unavailable Anat Hutchison Unavailable Unavailable Encounter Details Date Type Department Care Team (Late st Contact Info) Description 12/07/2024 Telephone [facility] Cardiology [address] [facility] Advanced Medicine 8th [place] [address] [place] [address] Nanette Bingham Social History Tobacco Use Types Packs/Day Years [...] How often do you attend chur or pentecostalism services? 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 She is made aware she can have the bloodwork drawn then.Can be before or after the echo and she does not need to fast. MIDWIFE * Telephone Encounter - Nanette Bingham - 12/07/2024 3:29 PM CST BRIAN PT'S DTR CALLING IN REGARDS TO PT'S 12/16 ECHO. CALLING TO SEE IF PT SHOULD HAVE LAB WORK DONE PRIORTO ECHO OR AFTER ECHO. ALSO WOULD LIKE TO KNOW IF PT SHOULD FAST FOR LAB WORK MIDWIFE documented in this encounter Plan of Treatment Upcoming Encounters Date Type Department Care Team (Latest Contact Info) Description 02/10/2025 7:30 AM CDT Hospital Encounter [facility] 1 [place] [address] Fred SullivanKey Bed Installer, [address] [id number] Patricia Smith MD [address] [address] Atrial fibrillation, unspecified type (HCC) 02/10/2025 7:30 AM CDT - 02/10/2025 8:05 AM CDT Surgery [facility] 1 [place] [address] Patricia Smith MD [address] [address] CARDIOVERSION documented as of this encounter Visit Diagnoses Not on filedocumented in this encounter Care Teams Gemologist Relationship Specialty Start Date End Date Lopez Pool MD PCP - General Family Medicine 03/18/22 Hema Castaneda MD Consulting Physician Cardiology 01/11/19 Colleen Bain MD Referring Physician Endocrinology Diabetes & Metabolism 04/07/19 Rosette Espinoza MD Referring Physician Cardiology 04/07/19 Jacqueline Schaeffer, setter induction heating equipment Failure Coordinator Cardiology 07/13/24 Anat Hutchison 07/13/24 documented as of this encounter
--- OUTSIDE RECORDS SUMMARY | 2025-01-04 14:15 | XMS_ITS | Encounter Summary ---
Author Organization [facility] [employer] [facility] Address [address] [place] [address] Phone Care Team Providers Care Printed Circuit Board Designer Name Role Phone Elmer Wallace MD Primary Care Provider [phone] Hema Castaneda MD Unavailable [phone] Colleen Bain MD Unavailable [phone] Rosette Espinoza MD Unavailable [phone] Jenni Hartley RN Unavailable Unavailable Meenu Jones NP Unavailable [phone] Lopez Pool MD Primary Care Provider [phone] Jacqueline Schaeffer RN Unavailable Unavailable Jenni Hartley RN Unavailable Unavailable Anat Hutchison Unavailable Unavailable Encounter Details Date Type Department Care Team (Late st Contact Info) Description 01/14/2018 Orders Only [facility] CAR CLINCONV ProviderLexi MD [address] [place] [address] Social History Tobacco Use Types Packs/Day Years Used Date Smoking Tobacco: Former Comments Unknown Sex and Gender Information Value Date Recorded Sex Assigned at Not on file Legal Sex Female 3:00 AM CYBER POLICY AND STRATEGY PLANNER Gender Identity Female 07/13/2018 9:28 AM CDT Sexual Orientation Not on file documented as of this encounter Plan of Treatment Upcoming Encounters Date Type Department Care Team (Latest Contact Info) Description 02/10/2025 7:30 AM CDT Hospital Encounter [facility] [address] [place] [address] Nate, Olericulturist, [address] [place] [address] Patricia Smith MD [address] [facility] [place] [address] Atrial fibrillation, unspecified type (HCC) 02/10/2025 7:30 AM CDT - 02/10/2025 8:05 AM CDT Surgery [facility] [address] [place] [phone] Patricia Smith MD [address] [facility] [address] [place], [place] [phone] CARDIOVERSION documented as of this encounter Procedures Procedure Name Priority Date/Time Associated Diagnosis Comments CARDIOLOGY REPORT 01/14/2018 CARDIOLOGY REPORT 01/14/2018 CARDIOLOGY REPORT 01/14/2018 CARDIOLOGY REPORT 01/14/2018 CARDIOLOGY REPORT 01/14/2018 CARDIOLOGY REPORT 01/14/2018 CARDIOLOGY REPORT 01/14/2018 CARDIOLOGY REPORT 01/14/2018 documented in this encounter Results * CARDIOLOGY REPORT (01/14/2018) Anatomical Region Laterality Modality Other Narrative 01/14/2018 Ordered by an unspecified provider. Historical Provider [facility] CARDIAC SERVICES PROCE DURES Final Result * CARDIOLOGY REPORT (01/14/2018) Anatomical Region Laterality Modality Other Narrative 01/14/2018 Ordered by an unspecified provider. us Historical Provider CV CARDIAC SERVICES PROCE DURES Final Result * CARDIOLOGY REPORT (01/14/2018) Anatomical Region Laterality Modality Other Narrative 01/14/2018 Ordered by an unspecified provider. [facility] Provider CV CARDIAC SERVICES PROCE DURES Final Result * CARDIOLOGY REPORT (01/14/2018) Anatomical Region Laterality Modality Other Narrative 01/14/2018 Ordered by an unspecified provider. [facility] Provider CV CARDIAC SERVICES PROCE DURES Final Result * CARDIOLOGY REPORT (01/14/2018) Anatomical Region Laterality Modality Other Narrative 01/14/2018 Ordered by an unspecified provider. [facility] Provider CV CARDIAC SERVICES PROCE DURES Final Result * CARDIOLOGY REPORT (01/14/2018) Anatomical Region Laterality Modality Other Narrative 01/14/2018 Ordered by an unspecified provider. [facility] Provider CV CARDIAC SERVICES PROCE DURES Final Result * CARDIOLOGY REPORT (01/14/2018) Anatomical Region Laterality Modality Other Narrative 01/14/2018 Ordered by an unspecified provider. [facility] Provider CV CARDIAC SERVICES PROCE DURES Final Result * CARDIOLOGY REPORT (01/14/2018) Anatomical Region Laterality Modality Other Narrative 01/14/2018 Ordered by an unspecified provider. [facility] Provider CV CARDIAC SERVICES PROCE DURES Final Result documented in this encounter Visit Diagnoses Not on filedocumented in this encounter Additional Health Concerns Infection Onset Date Last Indicated Resolved Time COVID: Suspected 03/13/2022 03/13/2022 03/13/2022 6:26 PM CDT documented as of this encounter Care Teams Printed Circuit Board Designer Relationship Specialty Start Date End Date Elmer Wallace MD PCP - General 02/09/17 03/17/22 Lopez Pool MD PCP - General Family Medicine 03/18/22 Hema Castaneda MD Consulting Physician Cardiology 01/11/19 Colleen Bain MD Referring Physician Endocrinology Diabetes & Metabolism 04/07/19 Rosette Espinoza MD Referring Physician Cardiology 04/07/19 Jenni Hartley, RN Registered Nurse Cardiology 04/02/21 04/22/21 Meenu Jones NP General Accountant Cardiology 04/02/21 04/22/21 Jacqueline Schaeffer, manual lathe operator Failure Coordinator Cardiology 07/13/24 Jenni Hartley, RN Registered Nurse 07/13/24 08/01/24 Anat Hutchison 07/13/24 documented as of this encounter
--- OUTSIDE RECORDS SUMMARY | 2025-01-04 14:15 | XMS_ITS | Encounter Summary ---
Author Organization [facility] [employer] [facility] Address [address] [place] [address] Phone Care Team Providers Care Sales Planning Manager Name Role Phone Elmer Wallace MD Primary Care Provider Hema Castaneda MD Unavailable [phone] Colleen Bain MD Unavailable [phone] Rosette Espinoza MD Unavailable [phone] Jenni Hartley RN Unavailable Unavailable Meenu Jones NP Unavailable [phone] Lopez Pool MD Primary Care Provider [phone] Jacqueline Schaeffer RN Unavailable Unavailable Jenni Hartley RN Unavailable Unavailable Anat Hutchison Unavailable Unavailable Encounter Details Date Type Department Care Team (Late st Contact Info) Description 01/07/2018 Orders Only [facility] CAR CLINCONV ProviderLexi MD [address] [place] [address] Social History Tobacco Use Types Packs/Day Years Used Date Smoking Tobacco: Former Comments Unknown Sex and Gender Information Value Date Recorded Sex Assigned at Not on file 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 Gender Identity Female 07/13/2018 9:28 AM CDT Sexual Orientation Not on file documented as of this encounter Plan of Treatment Upcoming Encounters Date Type Department Care Team (Latest Contact Info) Description 02/10/2025 7:30 AM CDT Hospital Encounter [facility] [address] [place] [phone] Nate, Simonizer, [address] [place] [address] Patricia Smith MD [address] [facility] [address] [place] [address] Atrial fibrillation, unspecified type (HCC) 02/10/2025 7:30 AM CDT - 02/10/2025 8:05 AM CDT Surgery [facility] 1 [place] [phone] Patricia Smith MD [address] [facility] [facility] [place], [place] [id number] CARDIOVERSION documented as of this encounter Procedures Procedure Name Priority Date/Time Associated Diagnosis Comments CARDIOLOGY REPORT 01/07/2018 CARDIOLOGY REPORT 01/07/2018 CARDIOLOGY REPORT 01/07/2018 CARDIOLOGY REPORT 01/07/2018 CARDIOLOGY REPORT 01/07/2018 CARDIOLOGY REPORT 01/07/2018 CARDIOLOGY REPORT 01/07/2018 documented in this encounter Results * CARDIOLOGY REPORT (01/07/2018) Anatomical Region Laterality Modality Other Narrative 01/07/2018 Ordered by an unspecified provider. us Historical Provider CV CARDIAC SERVICES PROCE DURES Final Result * CARDIOLOGY REPORT (01/07/2018) Anatomical Region Laterality Modality Other Narrative 01/07/2018 Ordered by an unspecified provider. us Historical Provider CV CARDIAC SERVICES PROCE DURES Final Result * CARDIOLOGY REPORT (01/07/2018) Anatomical Region Laterality Modality Other Narrative 01/07/2018 Ordered by an unspecified provider. Historical Provider CV CARDIAC SERVICES PROCE DURES Final Result * CARDIOLOGY REPORT (01/07/2018) Anatomical Region Laterality Modality Other Narrative 01/07/2018 Ordered by an unspecified provider. [facility] Provider CV CARDIAC SERVICES PROCE DURES Final Result * CARDIOLOGY REPORT (01/07/2018) Anatomical Region Laterality Modality Other Narrative 01/07/2018 Ordered by an unspecified provider. [facility] Provider CV CARDIAC SERVICES PROCE DURES Final Result * CARDIOLOGY REPORT (01/07/2018) Anatomical Region Laterality Modality Other Narrative 01/07/2018 Ordered by an unspecified provider. [facility] Provider CV CARDIAC SERVICES PROCE DURES Final Result * CARDIOLOGY REPORT (01/07/2018) Anatomical Region Laterality Modality Other Narrative 01/07/2018 Ordered by an unspecified provider. [facility] Provider CV CARDIAC SERVICES PROCE DURES Final Result documented in this encounter Visit Diagnoses Not on filedocumented in this encounter Additional Health Concerns Infection Onset Date Last Indicated Resolved Time COVID: Suspected 03/13/2022 03/13/2022 03/13/2022 6:26 PM CDT documented as of this encounter Care Teams Sales Planning Manager Relationship Specialty Start Date End Date Elmer Wallace MD PCP - General 02/09/17 03/17/22 Lopez Pool MD PCP - General Family Medicine 03/18/22 Hema Castaneda MD Consulting Physician Cardiology 01/11/19 Colleen Bain MD Referring Physician Endocrinology Diabetes & Metabolism 04/07/19 Rosette Espinoza MD Referring Physician Cardiology 04/07/19 Jenni Hartley, RN Registered Nurse Cardiology 04/02/21 04/22/21 Meenu Jones NP Press Operator Assistant Cardiology 04/02/21 04/22/21 Jacqueline cShaeffer, chalk molding machine operator Failure Coordinator Cardiology 07/13/24 Jenni Hartley, RN Registered Nurse 07/13/24 08/01/24 Anat Hutchison 07/13/24 documented as of this encounter
--- OUTSIDE RECORDS SUMMARY | 2025-01-04 14:15 | XMS_ITS | Encounter Summary ---
Author Organization [facility] Address [facility] [place] [address] Care Team Providers Care Casket Trimmer Name Role Phone Elmer Wallace MD Primary Care Provider [phone] Lopez Pool MD Primary Care Provider [phone] Lopez Pool MD Unavailable [phone] Encounter Details Date Type Department Care Team (Late st Contact Info) Description 03/26/2019 Abstract [facility] CONVERSION [address] [place] [address] , Generic Conversion, Social History Tobacco Use Types Packs/Day Years Used Date Smoking Tobacco: Never Assessed Comments Unknown Sex and Gender Information Value Date Recorded Sex Assigned at Female 11/01/2024 8:23 AM ZOOGLER Legal Sex Female 10:48 PM ZOOGLER Gender Identity Not on file Sexual Orientation Not on file documented as of this encounter Plan of Treatment Upcoming Encounters Date Type Department Care Team (Late st Contact Info) Description 02/07/2025 8:16 AM CDT Hospital Encounter [place] [address] [place] [address] [place] [address] [place] [address] 02/07/2025 8:16 AM CDT - 02/07/2025 8:46 AM CDT Surgery [facility] [place] [address] [place] [address] [place] [address] [place] [address] CYSTOSCOPY Scheduled Procedures Name Priority Associated Diagnoses [...] Rule Out 10/06/2021 10/06/2021 10/06/2021 8:43 PM ZOOGLER COVID-19 Rule Out 02/14/2022 02/14/2022 02/14/2022 8:59 AM CDT COVID-19 Rule Out 02/22/2022 02/22/2022 02/22/2022 2:34 AM CDT COVID-19 Rule Out 02/22/2022 02/22/2022 02/23/2022 11:16 AM CDT COVID-19 Rule Out 06/02/2022 06/02/2022 06/02/2022 9:32 PM CDT COVID-19 Confirmed 06/02/2022 06/02/2022 12:32 AM CDT COVID-19 Rule Out 09/03/2022 09/03/2022 09/03/2022 3:29 PM ZOOGLER COVID-19 Rule Out 10/25/2023 10/25/2023 10/25/2023 2:09 PM ZOOGLER documented as of this encounter Care Teams Casket Trimmer Relationship Specialty Start Date End Date Elmer Wallace MD [address] [place] [address] PCP - General FAMILY PRACTICE 06/14/19 03/20/22 Lopez Pool MD [address] [place] [address] PCP - General FAMILY PRACTICE 03/21/22 Lopez Pool MD [address] [place] [address] FAMILY PRACTICE 03/21/22 documented as of this encounter
--- OUTSIDE RECORDS SUMMARY | 2025-01-04 14:15 | XMS_ITS | Encounter Summary ---
Author Organization [facility] Address [address] [place] [address] Phone Care Team Providers Care Hand Router Operator Name Role Phone Elmer Wallace MD Primary Care Provider Hema Castaneda MD Unavailable [phone] Colleen Bain MD Unavailable [phone] Rosette Espinoza MD Unavailable [phone] Jenni Hartley RN Unavailable Unavailable Meenu Jones NP Unavailable [phone] Lopez Pool MD Primary Care Provider [phone] Jacqueline Schaeffer RN Unavailable Unavailable Jenni Hartley RN Unavailable Unavailable Anat Hutchison Unavailable Unavailable Encounter Details Date Type Department Care Team (Late st Contact Info) Description 11/06/2017 Orders Only [facility] CAR CLINCONV ProviderLexi MD [address] [place] [address] Social History Tobacco Use Types Packs/Day Years Used Date Smoking Tobacco: Never Assessed Comments Unknown Sex and Gender Information Value Date Recorded Sex Assigned at Not on file 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 [address] [place] [address] Nate, Rubbing Bed Operator, [address] [place] [address] Patricia Smith MD [address] [place] [address] Atrial fibrillation, unspecified type (HCC) 02/10/2025 7:30 AM CDT - 02/10/2025 8:05 AM CDT Surgery [facility] [address] [place] [phone] Patricia Smith MD [address] [place], [place] [phone] CARDIOVERSION documented as of this encounter Procedures Procedure Name Priority Date/Time Associated Diagnosis Comments CARDIOLOGY REPORT 11/06/2017 CARDIOLOGY REPORT 11/06/2017 CARDIOLOGY REPORT 11/06/2017 CARDIOLOGY REPORT 11/06/2017 CARDIOLOGY REPORT 11/06/2017 CARDIOLOGY REPORT 11/06/2017 CARDIOLOGY REPORT 11/06/2017 documented in this encounter Results * CARDIOLOGY REPORT (11/06/2017) Anatomical Region Laterality Modality Other Narrative 11/06/2017 Ordered by an unspecified provider. us Historical Provider CV CARDIAC SERVICES PROCE DURES Final Result * CARDIOLOGY REPORT (11/06/2017) Anatomical Region Laterality Modality Other Narrative 11/06/2017 Ordered by an unspecified provider. us Historical Provider CV CARDIAC SERVICES PROCE DURES Final Result * CARDIOLOGY REPORT (11/06/2017) Anatomical Region Laterality Modality Other Narrative 11/06/2017 Ordered by an unspecified provider. Historical Provider CV CARDIAC SERVICES PROCE DURES Final Result * CARDIOLOGY REPORT (11/06/2017) Anatomical Region Laterality Modality Other Narrative 11/06/2017 Ordered by an unspecified provider. [facility] Provider CV CARDIAC SERVICES PROCE DURES Final Result * CARDIOLOGY REPORT (11/06/2017) Anatomical Region Laterality Modality Other Narrative 11/06/2017 Ordered by an unspecified provider. Historical Provider CV CARDIAC SERVICES PROCE DURES Final Result * CARDIOLOGY REPORT (11/06/2017) Anatomical Region Laterality Modality Other Narrative 11/06/2017 Ordered by an unspecified provider. [facility] Provider CV CARDIAC SERVICES PROCE DURES Final Result * CARDIOLOGY REPORT (11/06/2017) Anatomical Region Laterality Modality Other Narrative 11/06/2017 Ordered by an unspecified provider. [facility] Provider CV CARDIAC SERVICES PROCE DURES Final Result documented in this encounter Visit Diagnoses Not on filedocumented in this encounter Additional Health Concerns Infection Onset Date Last Indicated Resolved Time COVID: Suspected 03/13/2022 03/13/2022 03/13/2022 6:26 PM CDT documented as of this encounter Care Teams Hand Router Operator Relationship Specialty Start Date End Date Elmer Wallace MD PCP - General 02/09/17 03/17/22 Lopez Pool MD PCP - General Family Medicine 03/18/22 Hema Castaneda MD Consulting Physician Cardiology 01/11/19 Colleen Bain MD Referring Physician Endocrinology Diabetes & Metabolism 04/07/19 Rosette Espinoza MD Referring Physician Cardiology 04/07/19 Jenni Hartley, RN Registered Nurse Cardiology 04/02/21 04/22/21 Meenu Jones NP Machine Clothing Replacer Cardiology 04/02/21 04/22/21 Jacqueline Schaeffer, torpedo man Failure Coordinator Cardiology 07/13/24 Jenni Hartley, RN Registered Nurse 07/13/24 08/01/24 Anat Hutchison 07/13/24 documented as of this encounter
--- OUTSIDE RECORDS SUMMARY | 2025-01-04 14:15 | XMS_ITS | Encounter Summary ---
Author Organization [facility] [employer] [facility] Address [address] [place] [address] Phone Care Team Providers Care Assistant Technician Name Role Phone Elmer Wallace MD Primary Care Provider [phone] Hema Castaneda MD Unavailable [phone] Colleen Bain MD Unavailable [phone] Rosette Espinoza MD Unavailable [phone] Jenni Hartley RN Unavailable Unavailable Meenu Jones NP Unavailable [phone] Lopez Pool MD Primary Care Provider [phone] Jacqueline Schaeffer RN Unavailable Unavailable Jenni Hartley RN Unavailable Unavailable Anat Hutchison Unavailable Unavailable Encounter Details Date Type Department Care Team (Late st Contact Info) Description 02/17/2018 Orders Only [facility] CAR CLINCONV ProviderLexi MD [address] [place] [address] Social History Tobacco Use Types Packs/Day Years Used Date Smoking Tobacco: Former Comments Unknown Sex and Gender Information Value Date Recorded Sex Assigned at Not on file 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 Gender Identity Female 07/13/2018 9:28 AM CDT Sexual Orientation Not on file documented as of this encounter Plan of Treatment Upcoming Encounters Date Type Department Care Team (Latest Contact Info) Description 02/10/2025 7:30 AM CDT Hospital Encounter [facility] 1 [place] [address] Nate, Cook Short Order, [address] [place] [address] Patricia Smith MD [address] [facility] [address] [address] [place] [address] Atrial fibrillation, unspecified type (HCC) 02/10/2025 7:30 AM CDT - 02/10/2025 8:05 AM CDT Surgery [facility] 1 [place] [phone] Patricia Smith MD [address] [facility] [address] [place], [place] [phone] CARDIOVERSION documented as of this encounter Procedures Procedure Name Priority Date/Time Associated Diagnosis Comments CARDIOLOGY REPORT 02/17/2018 CARDIOLOGY REPORT 02/17/2018 CARDIOLOGY REPORT 02/17/2018 CARDIOLOGY REPORT 02/17/2018 CARDIOLOGY REPORT 02/17/2018 CARDIOLOGY REPORT 02/17/2018 CARDIOLOGY REPORT 02/17/2018 documented in this encounter Results * CARDIOLOGY REPORT (02/17/2018) Anatomical Region Laterality Modality Other Narrative 02/17/2018 Ordered by an unspecified provider. us Historical Provider CV CARDIAC SERVICES PROCE DURES Final Result * CARDIOLOGY REPORT (02/17/2018) Anatomical Region Laterality Modality Other Narrative 02/17/2018 Ordered by an unspecified provider. us Historical Provider CV CARDIAC SERVICES PROCE DURES Final Result * CARDIOLOGY REPORT (02/17/2018) Anatomical Region Laterality Modality Other Narrative 02/17/2018 Ordered by an unspecified provider. Historical Provider MD CV CARDIAC SERVICES PROCE DURES Final Result * CARDIOLOGY REPORT (02/17/2018) Anatomical Region Laterality Modality Other Narrative 02/17/2018 Ordered by an unspecified provider. [facility] Provider MD CV CARDIAC SERVICES PROCE DURES Final Result * CARDIOLOGY REPORT (02/17/2018) Anatomical Region Laterality Modality Other Narrative 02/17/2018 Ordered by an unspecified provider. [facility] Provider MD CV CARDIAC SERVICES PROCE DURES Final Result * CARDIOLOGY REPORT (02/17/2018) Anatomical Region Laterality Modality Other Narrative 02/17/2018 Ordered by an unspecified provider. [facility] Provider CV CARDIAC SERVICES PROCE DURES Final Result * CARDIOLOGY REPORT (02/17/2018) Anatomical Region Laterality Modality Other Narrative 02/17/2018 Ordered by an unspecified provider. [facility] Provider CV CARDIAC SERVICES PROCE DURES Final Result documented in this encounter Visit Diagnoses Not on filedocumented in this encounter Additional Health Concerns Infection Onset Date Last Indicated Resolved Time COVID: Suspected 03/13/2022 03/13/2022 03/13/2022 6:26 PM CDT documented as of this encounter Care Teams Assistant Technician Relationship Specialty Start Date End Date Elmer Wallace MD PCP - General 02/09/17 03/17/22 Lopez Pool MD PCP - General Family Medicine 03/18/22 Hema Castaneda MD Consulting Physician Cardiology 01/11/19 Colleen Bain MD Referring Physician Endocrinology Diabetes & Metabolism 04/07/19 Rosette Espinoza MD Referring Physician Cardiology 04/07/19 Jenni Hartley, RN Registered Nurse Cardiology 04/02/21 04/22/21 Meenu Jones NP Architectural Intern Cardiology 04/02/21 04/22/21 Jacqueline Schaeffer, parts consultant Failure Coordinator Cardiology 07/13/24 Jenni Hartley, RN Registered Nurse 07/13/24 08/01/24 Anat Hutchison 07/13/24 documented as of this encounter
--- OUTSIDE RECORDS SUMMARY | 2025-01-04 14:15 | XMS_ITS | Encounter Summary ---
Author Organization [facility] Address [address] [place] [address] Phone Care Team Providers Care Food Service Substitute Name Role Phone Hema Castaneda MD Unavailable [phone] Colleen Bain MD Unavailable [phone] Rosette Espinoza MD Unavailable [phone] Lopez Pool MD Primary Care Provider [phone] Jacqueline Schaeffer RN Unavailable Unavailable Anat Hutchison Unavailable Unavailable Encounter Details Date Type Department Care Team (Late st Contact Info) Description 12/16/2024 Results Follow-Up [facility] Cardiology [address] [facility] [address] [place] [address] Rosette Espinoza MD [address] [address] Social History Tobacco Use Types Packs/Day Years [...] often do you attend chur ch or pentecostal services? 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 on file Not on file Not on file documented as of this encounter Plan of Treatment Upcoming Encounters Date Type Department Care Team (Latest Contact Info) Description 02/10/2025 7:30 AM CDT Hospital Encounter [facility] [address] [place] [phone] Fred SullivanLaminating Machine Feeder, [address] [place], [place] [phone] Patricia Smith MD [address] [address] Atrial fibrillation, unspecified type (HCC) 02/10/2025 7:30 AM CDT - 02/10/2025 8:05 AM CDT Surgery [facility] Vascular [address] [address] Patricia Smith MD [address] [address] CARDIOVERSION documented as of this encounter Visit Diagnoses Not on filedocumented in this encounter Care Teams Food Service Substitute Relationship Specialty Start Date End Date Lopez Pool MD PCP - General Family Medicine 03/18/22 Hema Castaneda MD Consulting Physician Cardiology 01/11/19 Colleen Bain MD Referring Physician Endocrinology Diabetes & Metabolism 04/07/19 Rosette Espinoza MD Referring Physician Cardiology 04/07/19 Jacqueline Schaeffer, steamship agent Failure Coordinator Cardiology 07/13/24 Anat Hutchison 07/13/24 documented as of this encounter
--- OUTSIDE RECORDS SUMMARY | 2025-01-04 14:15 | XMS_ITS | Encounter Summary ---
Author Organization [facility] Address [address] [place] [address] Phone Care Team Providers Care [employer] Name Role Phone Elmer Wallace MD Primary Care Provider Hema Castaneda MD Unavailable [phone] Colleen Bain MD Unavailable [phone] Rosette Espinoza MD Unavailable [phone] Jenni Hartley RN Unavailable Unavailable Meenu Jones NP Unavailable [phone] Lopez Pool MD Primary Care Provider [phone] Jacqueline Schaeffer RN Unavailable Unavailable Jenni Hartley RN Unavailable Unavailable Anat Hutchison Unavailable Unavailable Encounter Details Date Type Department Care Team (Late st Contact Info) Description 12/24/2017 Orders Only [facility] CAR CLINCONV ProviderLexi MD [address] [place] [address] Social History Tobacco Use Types Packs/Day Years Used Date Smoking Tobacco: Former Comments Unknown Sex and Gender Information Value Date Recorded Sex Assigned at Not on file Legal Sex Female 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 Gender Identity Female 07/13/2018 9:28 AM CDT Sexual Orientation Not on file documented as of this encounter Plan of Treatment Upcoming Encounters Date Type Department Care Team (Latest Contact Info) Description 02/10/2025 7:30 AM CDT Hospital Encounter [facility] [address] [place] [phone] Nate, Electronics Engineer, [address] [place] [address] Patricia Smith MD [address] [facility] [address] [place] [address] Atrial fibrillation, unspecified type (HCC) 02/10/2025 7:30 AM CDT - 02/10/2025 8:05 AM CDT Surgery [facility] 1 [place] [address] Patricia Smith MD [address] [facility] [address] [place], [place] [id number] CARDIOVERSION documented as of this encounter Procedures Procedure Name Priority Date/Time Associated Diagnosis Comments CARDIOLOGY REPORT 12/24/2017 CARDIOLOGY REPORT 12/24/2017 CARDIOLOGY REPORT 12/24/2017 CARDIOLOGY REPORT 12/24/2017 CARDIOLOGY REPORT 12/24/2017 CARDIOLOGY REPORT 12/24/2017 CARDIOLOGY REPORT 12/24/2017 CARDIOLOGY REPORT 12/24/2017 CARDIOLOGY REPORT 12/24/2017 CARDIOLOGY REPORT 12/24/2017 CARDIOLOGY REPORT 12/24/2017 CARDIOLOGY REPORT 12/24/2017 CARDIOLOGY REPORT 12/24/2017 CARDIOLOGY REPORT 12/24/2017 documented in this encounter Results * CARDIOLOGY REPORT (12/24/2017) Anatomical Region Laterality Modality Other Narrative 12/24/2017 Ordered by an unspecified provider. Result [facility] Provider CV CARDIAC SERVICES PROCE DURES Final Result * CARDIOLOGY REPORT (12/24/2017) Anatomical Region Laterality Modality Other Narrative 12/24/2017 Ordered by an unspecified provider. Result [facility] Provider CV CARDIAC SERVICES PROCE DURES Final Result * CARDIOLOGY REPORT (12/24/2017) Anatomical Region Laterality Modality Other Narrative 12/24/2017 Ordered by an unspecified provider. Result [facility] Provider CV CARDIAC SERVICES PROCE DURES Final Result * CARDIOLOGY REPORT (12/24/2017) Anatomical Region Laterality Modality Other Narrative 12/24/2017 Ordered by an unspecified provider. Result [facility] Provider CV CARDIAC SERVICES PROCE DURES Final Result * CARDIOLOGY REPORT (12/24/2017) Anatomical Region Laterality Modality Other Narrative 12/24/2017 Ordered by an unspecified provider. Result [facility] Provider CV CARDIAC SERVICES PROCE DURES Final Result * CARDIOLOGY REPORT (12/24/2017) Anatomical Region Laterality Modality Other Narrative 12/24/2017 Ordered by an unspecified provider. Result [facility] Provider CV CARDIAC SERVICES PROCE DURES Final Result * CARDIOLOGY REPORT (12/24/2017) Anatomical Region Laterality Modality Other Narrative 12/24/2017 Ordered by an unspecified provider. Result [facility] Provider CV CARDIAC SERVICES PROCE DURES Final Result * CARDIOLOGY REPORT (12/24/2017) Anatomical Region Laterality Modality Other Narrative 12/24/2017 Ordered by an unspecified provider. Result [facility] Provider CV CARDIAC SERVICES PROCE DURES Final Result * CARDIOLOGY REPORT (12/24/2017) Anatomical Region Laterality Modality Other Narrative 12/24/2017 Ordered by an unspecified provider. [facility] Provider CV CARDIAC SERVICES PROCE DURES Final Result * CARDIOLOGY REPORT (12/24/2017) Anatomical Region Laterality Modality Other Narrative 12/24/2017 Ordered by an unspecified provider. [facility] Provider CV CARDIAC SERVICES PROCE DURES Final Result * CARDIOLOGY REPORT (12/24/2017) Anatomical Region Laterality Modality Other Narrative 12/24/2017 Ordered by an unspecified provider. [facility] Provider CV CARDIAC SERVICES PROCE DURES Final Result * CARDIOLOGY REPORT (12/24/2017) Anatomical Region Laterality Modality Other Narrative 12/24/2017 Ordered by an unspecified provider. [facility] Provider CV CARDIAC SERVICES PROCE DURES Final Result * CARDIOLOGY REPORT (12/24/2017) Anatomical Region Laterality Modality Other Narrative 12/24/2017 Ordered by an unspecified provider. [facility] Provider CV CARDIAC SERVICES PROCE DURES Final Result * CARDIOLOGY REPORT (12/24/2017) Anatomical Region Laterality Modality Other Narrative 12/24/2017 Ordered by an unspecified provider. Result [facility] Provider CV CARDIAC SERVICES PROCE DURES Final Result documented in this encounter Visit Diagnoses Not on filedocumented in this encounter Additional Health Concerns Infection Onset Date Last Indicated Resolved Time COVID: Suspected 03/13/2022 03/13/2022 03/13/2022 6:26 PM CDT documented as of this encounter Care Teams [employer] Relationship Specialty Start Date End Date Elmer Wallace MD PCP - General 02/09/17 03/17/22 Lopez Pool MD PCP - General Family Medicine 03/18/22 Hema Castaneda MD Consulting Physician Cardiology 01/11/19 Colleen Bain MD Referring Physician Endocrinology Diabetes & Metabolism 04/07/19 Rosette Espinoza MD Referring Physician Cardiology 04/07/19 Jenni Hartley, RN Registered Nurse Cardiology 04/02/21 04/22/21 Meenu Jones NP Insights Analyst Cardiology 04/02/21 04/22/21 Jacqueline Schaeffer, orthopaedic technologist Failure Coordinator Cardiology 07/13/24 Jenni Hartley, RN Registered Nurse 07/13/24 08/01/24 Anat Hutchison 07/13/24 documented as of this encounter
--- OUTSIDE RECORDS SUMMARY | 2025-01-04 14:15 | XMS_ITS | Encounter Summary ---
Author Organization [facility] [employer] [facility] Address [address] [place] [address] Phone Care Team Providers Care Operations Leader Name Role Phone Elmer Wallace MD Primary Care Provider Hema Castaneda MD Unavailable [phone] Colleen Bain MD Unavailable [phone] Rosette Espinoza MD Unavailable [phone] Jenni Hartley RN Unavailable Unavailable Meenu Jones NP Unavailable [phone] Lopez Pool MD Primary Care Provider [phone] Jacqueline Schaeffer RN Unavailable Unavailable Jenni Hartley RN Unavailable Unavailable Anat Hutchison Unavailable Unavailable Encounter Details Date Type Department Care Team (Late st Contact Info) Description 02/15/2018 Orders Only [facility] CAR CLINCONV ProviderLexi MD [address] [place] [address] Social History Tobacco Use Types Packs/Day Years Used Date Smoking Tobacco: Former Comments Unknown Sex and Gender Information Value Date Recorded Sex Assigned at Not on file 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 Gender Identity Female 07/13/2018 9:28 AM CDT Sexual Orientation Not on file documented as of this encounter Plan of Treatment Upcoming Encounters Date Type Department Care Team (Latest Contact Info) Description 02/10/2025 7:30 AM CDT Hospital Encounter [facility] [address] [place] [id number] Nate, Flange Turner, [address] [place] [address] Patricia Smith MD [address] [facility] [place] [address] Atrial fibrillation, unspecified type (HCC) 02/10/2025 7:30 AM CDT - 02/10/2025 8:05 AM CDT Surgery [facility] [address] [place] [address] Patricia Smith MD [address] [place], [place] [id number] CARDIOVERSION documented as of this encounter Procedures Procedure Name Priority Date/Time Associated Diagnosis Comments CARDIOLOGY REPORT 02/15/2018 CARDIOLOGY REPORT 02/15/2018 CARDIOLOGY REPORT 02/15/2018 CARDIOLOGY REPORT 02/15/2018 CARDIOLOGY REPORT 02/15/2018 CARDIOLOGY REPORT 02/15/2018 CARDIOLOGY REPORT 02/15/2018 CARDIOLOGY REPORT 02/15/2018 CARDIOLOGY REPORT 02/15/2018 CARDIOLOGY REPORT 02/15/2018 CARDIOLOGY REPORT 02/15/2018 CARDIOLOGY REPORT 02/15/2018 CARDIOLOGY REPORT 02/15/2018 CARDIOLOGY REPORT 02/15/2018 documented in this encounter Results * CARDIOLOGY REPORT (02/15/2018) Anatomical Region Laterality Modality Other Narrative 02/15/2018 Ordered by an unspecified provider. Result [facility] Provider CV CARDIAC SERVICES PROCE DURES Final Result * CARDIOLOGY REPORT (02/15/2018) Anatomical Region Laterality Modality Other Narrative 02/15/2018 Ordered by an unspecified provider. Result [facility] Provider CV CARDIAC SERVICES PROCE DURES Final Result * CARDIOLOGY REPORT (02/15/2018) Anatomical Region Laterality Modality Other Narrative 02/15/2018 Ordered by an unspecified provider. Result [facility] Provider CV CARDIAC SERVICES PROCE DURES Final Result * CARDIOLOGY REPORT (02/15/2018) Anatomical Region Laterality Modality Other Narrative 02/15/2018 Ordered by an unspecified provider. Result [facility] Provider CV CARDIAC SERVICES PROCE DURES Final Result * CARDIOLOGY REPORT (02/15/2018) Anatomical Region Laterality Modality Other Narrative 02/15/2018 Ordered by an unspecified provider. Result [facility] Provider CV CARDIAC SERVICES PROCE DURES Final Result * CARDIOLOGY REPORT (02/15/2018) Anatomical Region Laterality Modality Other Narrative 02/15/2018 Ordered by an unspecified provider. Result [facility] Provider CV CARDIAC SERVICES PROCE DURES Final Result * CARDIOLOGY REPORT (02/15/2018) Anatomical Region Laterality Modality Other Narrative 02/15/2018 Ordered by an unspecified provider. Result [facility] Provider CV CARDIAC SERVICES PROCE DURES Final Result * CARDIOLOGY REPORT (02/15/2018) Anatomical Region Laterality Modality Other Narrative 02/15/2018 Ordered by an unspecified provider. Result [facility] Provider CV CARDIAC SERVICES PROCE DURES Final Result * CARDIOLOGY REPORT (02/15/2018) Anatomical Region Laterality Modality Other Narrative 02/15/2018 Ordered by an unspecified provider. [facility] Provider CV CARDIAC SERVICES PROCE DURES Final Result * CARDIOLOGY REPORT (02/15/2018) Anatomical Region Laterality Modality Other Narrative 02/15/2018 Ordered by an unspecified provider. [facility] Provider CV CARDIAC SERVICES PROCE DURES Final Result * CARDIOLOGY REPORT (02/15/2018) Anatomical Region Laterality Modality Other Narrative 02/15/2018 Ordered by an unspecified provider. [facility] Provider CV CARDIAC SERVICES PROCE DURES Final Result * CARDIOLOGY REPORT (02/15/2018) Anatomical Region Laterality Modality Other Narrative 02/15/2018 Ordered by an unspecified provider. [facility] Provider CV CARDIAC SERVICES PROCE DURES Final Result * CARDIOLOGY REPORT (02/15/2018) Anatomical Region Laterality Modality Other Narrative 02/15/2018 Ordered by an unspecified provider. [facility] Provider CV CARDIAC SERVICES PROCE DURES Final Result * CARDIOLOGY REPORT (02/15/2018) Anatomical Region Laterality Modality Other Narrative 02/15/2018 Ordered by an unspecified provider. Result [facility] Provider CV CARDIAC SERVICES PROCE DURES Final Result documented in this encounter Visit Diagnoses Not on filedocumented in this encounter Additional Health Concerns Infection Onset Date Last Indicated Resolved Time COVID: Suspected 03/13/2022 03/13/2022 03/13/2022 6:26 PM CDT documented as of this encounter Care Teams Operations Leader Relationship Specialty Start Date End Date Elmer Wallace MD PCP - General 02/09/17 03/17/22 Lopez Pool MD PCP - General Family Medicine 03/18/22 Hema Castaneda MD Consulting Physician Cardiology 01/11/19 Colleen Bain MD Referring Physician Endocrinology Diabetes & Metabolism 04/07/19 Rosette Espinoza MD Referring Physician Cardiology 04/07/19 Jenni Hartley, RN Registered Nurse Cardiology 04/02/21 04/22/21 Meenu Jones NP Clipper Operator Cardiology 04/02/21 04/22/21 Jacqueline Schaeffer, analytical chemist Failure Coordinator Cardiology 07/13/24 Jenni Hartley, RN Registered Nurse 07/13/24 08/01/24 Anat Hutchison 07/13/24 documented as of this encounter
--- OUTSIDE RECORDS SUMMARY | 2025-01-04 14:15 | XMS_ITS | Encounter Summary ---
Author Organization [facility] [employer] [facility] Address [address] [place] [address] Phone Care Team Providers Care Electric Solderer Name Role Phone Elmer Wallace MD Primary Care Provider Hema Castaneda MD Unavailable [phone] Colleen Bain MD Unavailable [phone] Rosette Espinoza MD Unavailable [phone] Jenni Hartley RN Unavailable Unavailable Meenu Jones NP Unavailable [phone] Lopez Pool MD Primary Care Provider [phone] Jacqueline Schaeffer RN Unavailable Unavailable Jenni Hartley RN Unavailable Unavailable Anat Hutchison Unavailable Unavailable Encounter Details Date Type Department Care Team (Late st Contact Info) Description 01/05/[address] 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 Gender Identity Female 07/13/2018 9:28 AM CDT Sexual Orientation Not on file documented as of this encounter Plan of Treatment Upcoming Encounters Date Type Department Care Team (Latest Contact Info) Description 02/10/2025 7:30 AM CDT Hospital Encounter [facility] [address] [place] [phone] Nate, Accountancy Professor, [address] [place] [address] Patricia Smith MD [address] [facility] [address] [place] [address] Atrial fibrillation, unspecified type (HCC) 02/10/2025 7:30 AM CDT - 02/10/2025 8:05 AM CDT Surgery [facility] [place] [address] [place] [phone] Patricia Smith MD [address] [facility] [address] [place], [place] [id number] CARDIOVERSION documented as of this encounter Procedures Procedure Name Priority Date/Time Associated Diagnosis Comments CARDIOLOGY REPORT 01/05/2018 CARDIOLOGY REPORT 01/05/2018 CARDIOLOGY REPORT 01/05/2018 CARDIOLOGY REPORT 01/05/2018 CARDIOLOGY REPORT 01/05/2018 CARDIOLOGY REPORT 01/05/2018 CARDIOLOGY REPORT 01/05/2018 CARDIOLOGY REPORT 01/05/2018 CARDIOLOGY REPORT 01/05/2018 documented in this encounter Results * CARDIOLOGY REPORT (01/05/2018) Anatomical Region Laterality Modality Other Narrative 01/05/2018 Ordered by an unspecified provider. us Historical Provider CV CARDIAC SERVICES RUPA POSADA Final Result * CARDIOLOGY REPORT (01/05/2018) Anatomical Region Laterality Modality Other Narrative 01/05/2018 Ordered by an unspecified provider. [facility] Provider CV CARDIAC SERVICES PROCE DURES Final Result * CARDIOLOGY REPORT (01/05/2018) Anatomical Region Laterality Modality Other Narrative 01/05/2018 Ordered by an unspecified provider. Result [facility] Provider CV CARDIAC SERVICES PROCE DURES Final Result * CARDIOLOGY REPORT (01/05/2018) Anatomical Region Laterality Modality Other Narrative 01/05/2018 Ordered by an unspecified provider. Result [facility] Provider CV CARDIAC SERVICES PROCE DURES Final Result * CARDIOLOGY REPORT (01/05/2018) Anatomical Region Laterality Modality Other Narrative 01/05/2018 Ordered by an unspecified provider. Result [facility] Provider CV CARDIAC SERVICES PROCE DURES Final Result * CARDIOLOGY REPORT (01/05/2018) Anatomical Region Laterality Modality Other Narrative 01/05/2018 Ordered by an unspecified provider. Result [facility] Provider CV CARDIAC SERVICES PROCE DURES Final Result * CARDIOLOGY REPORT (01/05/2018) Anatomical Region Laterality Modality Other Narrative 01/05/2018 Ordered by an unspecified provider. Result [facility] Provider CV CARDIAC SERVICES PROCE DURES Final Result * CARDIOLOGY REPORT (01/05/2018) Anatomical Region Laterality Modality Other Narrative 01/05/2018 Ordered by an unspecified provider. Result [facility] Provider CV CARDIAC SERVICES PROCE DURES Final Result * CARDIOLOGY REPORT (01/05/2018) Anatomical Region Laterality Modality Other Narrative 01/05/2018 Ordered by an unspecified provider. Result [facility] Provider CV CARDIAC SERVICES PROCE DURES Final Result documented in this encounter Visit Diagnoses Not on filedocumented in this encounter Additional Health Concerns Infection Onset Date Last Indicated Resolved Time COVID: Suspected 03/13/2022 03/13/2022 03/13/2022 6:26 PM CDT documented as of this encounter Care Teams Electric Solderer Relationship Specialty Start Date End Date Elmer Wallace MD PCP - General 02/09/17 03/17/22 Lopez Pool MD PCP - General Family Medicine 03/18/22 Hema Castaneda MD Consulting Physician Cardiology 01/11/19 Colleen Bain MD Referring Physician Endocrinology Diabetes & Metabolism 04/07/19 Rosette Espinoza MD Referring Physician Cardiology 04/07/19 Jenni Hartley, RN Registered Nurse Cardiology 04/02/21 04/22/21 Meenu Jones NP Point Of Care Technician Cardiology 04/02/21 04/22/21 Jacqueline Schaeffer, gas compressor turbine operator Failure Coordinator Cardiology 07/13/24 Jenni Hartley, RN Registered Nurse 07/13/24 08/01/24 Anat Hutchison 07/13/24 documented as of this encounter
--- OUTSIDE RECORDS SUMMARY | 2025-01-04 14:16 | XMS_ITS ---
Author Organization [facility] Address [address] [place], [place] [id number] Care Team Providers Care Medical Record Librarians Teacher Name Role Phone INESSA Dugan Unavailable [phone] Lopez Pool Unavailable Unavailable JOVANNI CAST Unavailable [phone] Allergies Allergen (clinical drug ingredient) Drug/Non Drug Allergy documented on EMR Reaction Allergy Type Onset Date Status Non-steroidal anti-inflammatory agent (FN) NSAIDs Unknown Drug Allergy Active REASON FOR VISIT Patient presents for at-risk foot care . The patient has painful toenails and calluses that are causing difficulty with ambulation and shoegear. The onset is gradual Medications Medication SIG (Take, Route, Frequency, Duration) Notes Start Date End Date Status Trelegy Ellipta 100-62.5-25 MCG/ACT 1 puff Inhalation Once a day Active Spironolactone 25 MG 1 tablet Orally Active ferrous sulfate 325 MG Oral Tablet ORAL ferrous sulfate 325 MG Oral TabletOriginal Medicationferrous sulfate 325 MG Oral Tablet *Reorder from [employer] for eRx and Interaction Alerts* 6 Bernardo-Cj perez sertraline 100 MG Oral Tablet ORAL sertraline 100 MG Oral TabletOriginal Medicationsertraline 100 MG Oral Tablet *Reorder from [employer] for eRx and Interaction Alerts* 6 Active metformin hydrochloride 500 MG Oral Tablet ORAL metformin hydrochloride 500 MG Oral TabletOriginal Medicationmetformin hydrochloride 500 MG Oral Tablet *Reorder from [employer] for eRx and Interaction Alerts* 6 Active Lisinopril 40 MG Oral Tablet ORAL lisinopril 40 MG Oral TabletOriginal Medicationlisinopril 40 MG Oral Tablet *Reorder from [facility] for eRx and Interaction Alerts* 6 Not-Takin g aspirin 81 MG Oral Tablet ORAL aspirin 81 MG Oral TabletOriginal Medicationaspirin 81 MG Oral Tablet *Reorder from [facility] for eRx and Interaction Alerts* 6 Not-Takin g Anastrozole 1 MG Oral Tablet ORAL anastrozole 1 MG Oral TabletOriginal Medicationanastrozole 1 MG Oral Tablet *Reorder from [facility] for eRx and Interaction Alerts* 6 Not-Takin g calcium carbonate 600 MG / ergocalciferol 200 UNT Oral Tablet ORAL calcium carbonate 600 MG / ergocalciferol 200 UNT Oral TabletOriginal Medicationcalcium carbonate 600 MG / ergocalciferol 200 UNT Oral Tablet *Reorder from [facility] for eRx and Interaction Alerts* 6 Active atorvastatin 40 MG Oral Tablet ORAL atorvastatin 40 MG Oral TabletOriginal Medicationatorvastatin 40 MG Oral Tablet *Reorder from [facility] for eRx and Interaction Alerts* 6 Not-Takin g Amiodarone HCl 200 MG 1 tablet Orally Once a day Active Basaglar KwikPen 100 UNIT/ML as directed Subcutaneous Active Warfarin Sodium 2 MG Oral Tablet ORAL warfarin sodium 2 MG Oral TabletOriginal Medicationwarfarin sodium 2 MG Oral Tablet *Reorder from [facility] for eRx and Interaction Alerts* 6 Active Furosemide 40 MG 1 tablet Orally Once a day Active Iron 325 (65 Fe) MG 1 tablet Orally Three times a Week Active Magnesium 400 MG as directed Orally Active Levothyroxine Sodium 100 MCG 1 tablet in the morning on an empty stomach Orally Once a day Active Encounters Encounter Location Date Provider Diagnosis [facility] [place] [address] [place], [place] [id number] 11/03/2024 JOVANNI SEGUN Tinea unguium B35.1 ; Pain in right foot M79.671 ; Pain in left foot M79.672 ; Atherosclerosis of [place] arteries of extremities with intermittent claudication, bilateral legs I70.213 ; Acquired keratosis [keratoderma] palmaris et plantaris L85.1 and Type 2 diabetes mellitus with other circulatory complications E11.59 Assessments Encounter Date Diagnosis (ICD Code) Assessment Notes Treatment Notes Treatment Clinical Notes Section Notes 11/03/2024 Tinea unguium (ICD-10 - B35.1) Nails 1-5 Bilateral were debrided extensively with nail nippers and emery board, reducing length and girth to pink healthy tissue with any subungual debris and necrotic tissue removed 11/03/2024 Pain in right foot (ICD-10 - M79.671) 11/03/2024 Pain in left foot (ICD-10 - M79.672) 11/03/2024 Atherosclerosis of [place] arteries of extremities with intermittent claudication, bilateral legs (ICD-10 - I70.213) 11/03/2024 Acquired keratosis [keratoderma] palmaris et plantaris (ICD-10 - L85.1) A total of 1 corns or calluses, as described in the note above, were cut and pared utilizing a #15 blade 11/03/2024 Type 2 diabetes mellitus with other circulatory complications (ICD-10 - E11.59) Plan Of Treatment Treatment Notes Assessment Notes Tinea unguium Nails 1-5 Bilateral were debrided extensively with nail nippers and emery board, reducing length and girth to pink healthy tissue with any subungual debris and necrotic tissue removed Acquired keratosis [keratode rma] palmaris et plantaris A total of 1 corns or calluses, as described in the note above, were cut and pared utilizing a #15 blade Next Appt Details Follow Up: 10 - 12 weeks, Re ason: At-Risk Foot care, sooner if problems develop. Provider Name:TONY KEENE, 01/19/2025 09:50:00 AM, [address] [place] [address], [phone], Progress Notes * WALKER KULKARNI LDOB:[birth year] (79 yo F)Acc No.[id number]:11/03/2024 Patient: WALKER ISAAC Provider: Danna Cast DPM :1945 A ge:79 Y S ex:Female Date:11/03/2024 Address:[address], [id number] Subjective: * Chief Complaints: * Jose J jones presents for at-risk foot care . The patient has painful toenails and calluses that are causing difficulty with ambulation and shoegear. The onset is gradual * HPI: H PI: General care Jose J jones presents to the office for diabetic foot care. Patient states that their nails are thickened, elongated and painful. Patient states that it is aggravated by shoe gear. Onset is gradual., Patient is taking prescription blood thinners., Date last seen by Dr. Pool was 09/2024., Initials mca. * Medical History: * Surgical History: * Hospitalization/Major Diagno stic Procedure: * Medications: T akingTrelegy Ellipta 100-62.5-25 MCG/ACT Aerosol Powder Breath Activated 1 puff Inhalation Once a day Spironolactone 25 MG Tablet 1 tablet Orally Magnesium 400 MG Capsule as directed Orally Levothyroxine Sodium 100 MCG Tablet 1 tablet in the morning on an empty stomach Orally Once a day Iron 325 (65 Fe) MG Tablet 1 tablet Orally Three times a Week Furosemide 40 MG Tablet 1 tablet Orally Once a day Basaglar KwikPen 100 UNIT/ML Solution Pen-injector as directed Subcutaneous Amiodarone HCl 200 MG Tablet 1 tablet Orally Once a day Warfarin Sodium 2 MG Oral Tablet ORAL , Notes to Pharmacist: warfarin sodium 2 MG Oral TabletOriginal Medicationwarfarin sodium 2 MG Oral Tablet *Reorder from [employer] for eRx and Interaction Alerts*calcium carbonate 600 MG / ergocalciferol 200 UNT Oral Tablet ORAL , Notes to Pharmacist: calcium carbonate 600 MG / ergocalciferol 200 UNT Oral TabletOriginal Medicationcalcium carbonate 600 MG / ergocalciferol 200 UNT Oral Tablet *Reorder from [employer] for eRx and Interaction Alerts*metformin hydrochloride 500 MG Oral Tablet ORAL , Notes to Pharmacist: metformin hydrochloride 500 MG Oral TabletOriginal Medicationmetformin hydrochloride 500 MG Oral Tablet *Reorder from [employer] for eRx and Interaction Alerts*sertraline 100 MG Oral Tablet ORAL , Notes to Pharmacist: sertraline 100 MG Oral TabletOriginal Medicationsertraline 100 MG Oral Tablet *Reorder from [employer] for eRx and Interaction Alerts*Taking Trelegy Ellipta 100-62.5-25 MCG/ACT Aerosol Powder Breath Activated 1 puff Inhalation Once a day Taking Spironolactone 25 MG Tablet 1 tablet Orally Taking Magnesium 400 MG Capsule as directed Orally Taking Levothyroxine Sodium 100 MCG Tablet 1 tablet in the morning on an empty stomach Orally Once a day Taking Iron 325 (65 Fe) MG Tablet 1 tablet Orally Three times a Week Taking Furosemide 40 MG Tablet 1 tablet Orally Once a day Taking Basaglar KwikPen 100 UNIT/ML Solution Pen-injector as directed Subcutaneous Taking Amiodarone HCl 200 MG Tablet 1 tablet Orally Once a day Taking Warfarin Sodium 2 MG Oral Tablet ORAL , Notes to Pharmacist: warfarin sodium 2 MG Oral TabletOriginal Medicationwarfarin sodium 2 MG Oral Tablet *Reorder from [facility] for eRx and Interaction Alerts*Taking calcium carbonate 600 MG / ergocalciferol 200 UNT Oral Tablet ORAL , Notes to Pharmacist: calcium carbonate 600 MG / ergocalciferol 200 UNT Oral TabletOriginal Medicationcalcium carbonate 600 MG / ergocalciferol 200 UNT Oral Tablet *Reorder from [facility] for eRx and Interaction Alerts*Taking metformin hydrochloride 500 MG Oral Tablet ORAL , Notes to Pharmacist: metformin hydrochloride 500 MG Oral TabletOriginal Medicationmetformin hydrochloride 500 MG Oral Tablet *Reorder from [facility] for eRx and Interaction Alerts*Taking sertraline 100 MG Oral Tablet ORAL , Notes to Pharmacist: sertraline 100 MG Oral TabletOriginal Medicationsertraline 100 MG Oral Tablet *Reorder from [facility] for eRx and Interaction Alerts*Not-TakingLisinopril 40 MG Oral Tablet ORAL , Notes to Pharmacist: lisinopril 40 MG Oral TabletOriginal Medicationlisinopril 40 MG Oral Tablet *Reorder from [facility] for eRx and Interaction Alerts*Anastrozole 1 MG Oral Tablet ORAL , Notes to Pharmacist: anastrozole 1 MG Oral TabletOriginal Medicationanastrozole 1 MG Oral Tablet *Reorder from [facility] for eRx and Interaction Alerts*aspirin 81 MG Oral Tablet ORAL , Notes to Pharmacist: aspirin 81 MG Oral TabletOriginal Medicationaspirin 81 MG Oral Tablet *Reorder from [facility] for eRx and Interaction Alerts*atorvastatin 40 MG Oral Tablet ORAL , Notes to Pharmacist: atorvastatin 40 MG Oral TabletOriginal Medicationatorvastatin 40 MG Oral Tablet *Reorder from [facility] for eRx and Interaction Alerts*ferrous sulfate 325 MG Oral Tablet ORAL , Notes to Pharmacist: ferrous sulfate 325 MG Oral TabletOriginal Medicationferrous sulfate 325 MG Oral Tablet *Reorder from [facility] for eRx and Interaction Alerts*Medication List reviewed and reconciled with the patientNot-Taking Lisinopril 40 MG Oral Tablet ORAL , Notes to Pharmacist: lisinopril 40 MG Oral TabletOriginal Medicationlisinopril 40 MG Oral Tablet *Reorder from [facility] for eRx and Interaction Alerts*Not-Taking Anastrozole 1 MG Oral Tablet ORAL , Notes to Pharmacist: anastrozole 1 MG Oral TabletOriginal Medicationanastrozole 1 MG Oral Tablet *Reorder from [facility] for eRx and Interaction Alerts*Not-Taking aspirin 81 MG Oral Tablet ORAL , Notes to Pharmacist: aspirin 81 MG Oral TabletOriginal Medicationaspirin 81 MG Oral Tablet *Reorder from [facility] for eRx and Interaction Alerts*Not-Taking atorvastatin 40 MG Oral Tablet ORAL , Notes to Pharmacist: atorvastatin 40 MG Oral TabletOriginal Medicationatorvastatin 40 MG Oral Tablet *Reorder from [facility] for eRx and Interaction Alerts*Not-Taking ferrous sulfate 325 MG Oral Tablet ORAL , Notes to Pharmacist: ferrous sulfate 325 MG Oral TabletOriginal Medicationferrous sulfate 325 MG Oral Tablet *Reorder from [facility] for eRx and Interaction Alerts*Medication List reviewed and reconciled with the patient * Allergies: N SAIDs: Allergyno[Allergies Verified] Objective: * Vitals: * Examination: P hysical Examination: General appearance: A lert, pleasant, well-nourished and in no acute distress. D ermatologic: Skin findings: S kin is thin, atrophic and lacking pedal hair. Hypertrophic / hyperkeratotic lesion: p lantar aspect of the left 2nd metatarsal head. Nail pathology: N ails 1, 2, 3, 4, and 5 bilateral are elongated, thick, discolored, and dystrophic with subungual debris. They are painful to palpation. ? V ascular: Dorsalis pedis pulse: 1 /4 b ilateral. Posterior tibial pulse: 0 /4 bilateral. Capillary refill: g reater than 3 seconds. Edema: N o edema bilateral. N eurologic: Gross sensation G rossly intact to light touch. There is negative Tinel's sign. M usculoskeletal: Muscle Strength M uscle strength is 5/5 in regards to dorsiflexion, plantarflexion, inversion, and eversion in bilateral lower extremities. ? Assessment: * Assessment: 1. T inea unguium - B35.1 (Primary) 2 . P ain in right foot - M79.671 ? 3 . P ain in left foot - M79.672 4 . A therosclerosis of [place] arteries of extremities with intermittent claudication, bilateral legs - I70.213 5 . Acquired keratosis [keratoderma] palmaris et plantaris - L85.1 6 . T ype 2 diabetes mellitus with other circulatory complications - E11.59 Plan: * Treatment: 2. A cquired keratosis [keratoderma] palmaris et plantaris Notes: A total of 1 corns or calluses, as described in the note above, were cut and pared utilizing a #15 blade * Procedure Codes: 1 1055 TRIM SKIN LESION, Modifiers: Q8 51769 DEBRIDE NAIL, 6 OR MORE, Modifiers: 59 , Q8 * Follow Up: 1 0 - 12 weeks (Reason: At-Risk Foot care, sooner if problems develop.) * Billing Information: * Visit Code: * Procedure Codes: 99535 TRIM SKIN LESION. Modifiers: Q8 63068 DEBRIDE NAIL, 6 OR MORE. Modifiers: 59, Q8 * ET WRITER Sign off status: Completed true * Provider: Danna Cast DPM Date: 0 11/03/2024 Generated for Rahul samano/Mignon/Jevon on: 0 01/04/2025 02:15 PM CDT History and Physical Notes * HPI (History of Present Illness) Category Sub-Category Detail Notes Category Not es HPI General care Patient presents to the office for diabetic foot care. Patient states that their nails are thickened, elongated and painful. Patient states that it is aggravated by shoe gear. Onset is gradual., Patient is taking prescription blood thinners., Date last seen by Dr. Pool was 09/2024., Initials mca Examination Category Sub-Category Detail Notes Category Not es Dermatologic Skin findings: Skin is thin, at rophic and lacking pedal hair Nail pathology: Nails 1, 2, 3, 4, an d 5 bilateral are elongated, thick, discolored, and dystrophic with subungual debris. They are painful to palpation Hypertrophic / hyperkeratotic lesion: pl jamey aspect of the left 2nd metatarsal head Neurologic Gross sensation Grossly intact t o light touch. There is negative Tinel's sign Vascular Dorsalis pedis pulse: 1/4 bilateral Edema: No edema bilateral Capillary refill: greater than 3 secon ds Posterior tibial pulse: 0/4 bilateral Physical Examination General appearance: Alert, pleasant, well-nourished and in no acute distress Musculoskeletal Muscle Strength Muscle strength is 5/5 in regards to dorsiflexion, plantarflexion, inversion, and eversion in bilateral lower extremities
--- OUTSIDE RECORDS SUMMARY | 2025-01-04 14:16 | XMS_ITS ---
Author Organization [facility] Address [address] [place], [place] [id number] Care Team Providers Care Senior Network Systems Engineer Name Role Phone INESSA Dugan Unavailable [phone] Lopez Pool Unavailable Unavailable PEDRITO MUÑIZ Unavailable [phone] Allergies Allergen (clinical drug ingredient) Drug/Non Drug Allergy documented on EMR Reaction Allergy Type Onset Date Status Non-steroidal anti-inflammatory agent (FN) NSAIDs Unknown Drug Allergy Active REASON FOR VISIT *General care Medications Medication SIG (Take, Route, Frequency, Duration) Notes Start Date End Date Status Iron 325 (65 Fe) MG 1 tablet Orally Three times a Week Active Levothyroxine Sodium 100 MCG 1 tablet in the morning on an empty stomach Orally Once a day Active Trelegy Ellipta 100-62.5-25 MCG/ACT 1 puff Inhalation Once a day Active Magnesium 400 MG as directed Orally Active Spironolactone 25 MG 1 tablet Orally Active metformin hydrochloride 500 MG Oral Tablet ORAL metformin hydrochloride 500 MG Oral TabletOriginal Medicationmetformin hydrochloride 500 MG Oral Tablet *Reorder from [employer] for eRx and Interaction Alerts* 6 Active ferrous sulfate 325 MG Oral Tablet ORAL ferrous sulfate 325 MG Oral TabletOriginal Medicationferrous sulfate 325 MG Oral Tablet *Reorder from [employer] for eRx and Interaction Alerts* 6 Not-Cj perez sertraline 100 MG Oral Tablet ORAL sertraline 100 MG Oral TabletOriginal Medicationsertraline 100 MG Oral Tablet *Reorder from [employer] for eRx and Interaction Alerts* 6 Active atorvastatin 40 MG Oral Tablet ORAL atorvastatin 40 MG Oral TabletOriginal Medicationatorvastatin 40 MG Oral Tablet *Reorder from [email or web address] for eRx and Interaction Alerts* 6 Not-Takin g calcium carbonate 600 MG / ergocalciferol 200 UNT Oral Tablet ORAL calcium carbonate 600 MG / ergocalciferol 200 UNT Oral TabletOriginal Medicationcalcium carbonate 600 MG / ergocalciferol 200 UNT Oral Tablet *Reorder from [email or web address] for eRx and Interaction Alerts* 6 Active Warfarin Sodium 2 MG Oral Tablet ORAL warfarin sodium 2 MG Oral TabletOriginal Medicationwarfarin sodium 2 MG Oral Tablet *Reorder from [email or web address] for eRx and Interaction Alerts* 6 Active Amiodarone HCl 200 MG 1 tablet Orally Once a day Active Anastrozole 1 MG Oral Tablet ORAL anastrozole 1 MG Oral TabletOriginal Medicationanastrozole 1 MG Oral Tablet *Reorder from [email or web address] for eRx and Interaction Alerts* 6 Not-Takin g Lisinopril 40 MG Oral Tablet ORAL lisinopril 40 MG Oral TabletOriginal Medicationlisinopril 40 MG Oral Tablet *Reorder from [employer] for eRx and Interaction Alerts* 6 Not-Takin g aspirin 81 MG Oral Tablet ORAL aspirin 81 MG Oral TabletOriginal Medicationaspirin 81 MG Oral Tablet *Reorder from [email or web address] for eRx and Interaction Alerts* 6 Not-Takin g Basaglar KwikPen 100 UNIT/ML as directed Subcutaneous Active Furosemide 40 MG 1 tablet Orally Once a day Active Encounters Encounter Location Date Provider Diagnosis [address] [id number] 08/11/2024 PEDRITO MUÑIZ Other hammer toe(s) (acquired), right foot M20.41 ; Tinea unguium B35.1 ; Other hammer toe(s) (acquired), left foot M20.42 ; Pain in right toe(s) M79.674 ; Pain in left toe(s) M79.675 ; Unspecified atherosclerosis of [place] arteries of extremities, bilateral legs I70.203 ; Acquired keratosis [keratoderma] palmaris et plantaris L85.1 and Type 2 diabetes mellitus with diabetic peripheral angiopathy without gangrene E11.51 Assessments Encounter Date Diagnosis (ICD Code) Assessment Notes Treatment Notes Treatment Clinical Notes Section Notes 08/11/2024 Other hammer toe(s) (acquired), right foot [...] prescription treatments. 08/11/2024 Other hammer toe(s) (acquired), left foot (ICD-10 - M20.42) 08/11/2024 Pain in right toe(s) (ICD-10 - M79.674) 08/11/2024 Pain in left toe(s) (ICD-10 - M79.675) 08/11/2024 Unspecified atherosclerosis of [place] arteries of extremities, bilateral legs (ICD-10 - I70.203) Patient educated on risks and aggravating factors of PVD, including conservative treatment options such as a diet and exercise regimen to aid in slowing progression of vascular disease 08/11/2024 Acquired keratosis [keratoderma] palmaris et plantaris [...] and no infection or drainage was noted. 08/11/2024 Type 2 diabetes mellitus with diabetic [...] to nausea, vomiting, fever. Plan Of Treatment Treatment Notes Assessment Notes Other hammer toe(s) (acquired), right fo ot The patient was educated regarding how to [...] were discussed, but conservative options were emphasized. Tinea unguium Aseptic debridement of elongated thickened nails x [...] educated regarding both OTC and prescription treatments. 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 After removal of overlying extensive hyperkeratosis, healthy tissue was noted and care was taken to assure that no undermining or probing was present. It should be noted that no probing was noted and no infection or drainage was noted. Type 2 diabetes mellitus wit h diabetic peripheral angiopathy without gangrene Patient educated on proper diabetic foot care [...] but not limited to nausea, vomiting, fever. Next Appt Details Follow Up: 3 Months, Reason: Provider Name:TONY KEENE, 01/19/2025 09:50:00 AM, [address] [place] [address], [id number], Progress Notes * WALKER KULKARNI LDOB:[birth year] (79 yo F)Acc No.[id number]:08/11/2024 Patient: WALKER ISAAC Provider: Lanie MUÑIZ :1945 A ge:79 Y S ex:Female Date:08/11/2024 Address:[address] [place] [address] Subjective: * Chief Complaints: * 1 . *General care. * HPI: H PI: General care P atient presents to the office for diabetic foot care. Patient states that their nails are thickened, elongated and painful. Patient states that it is aggravated by shoe gear. Onset is gradual., Patient is taking prescription blood thinners., Date last seen by Dr. Pool was 06/2024., Initials mca. * ROS: G eneral / Constitutional: Patient denies w eakness. R espiratory: Patient denies c hronic cough, shortness of breath, sputum production. C ardiovascular: Patient denies c hest pain, history of [place], irregular heartbeat. M usculoskeletal: Patient complains of h ammertoes, arch pain. ? P eripheral Vascular: Patient denies b lanching of skin, cold extremities, decreased sensation in extremities. S kin: Patient complains of c alluses and corns, fungal nails, nail changes. N eurologic: Patient denies d izziness, gait abnormality, headache. * Medical History: A yohan reflux, Blood transfusion, Neuropathy, Pneumonia, Stroke, Anemia, Cancer, Leg/Feet cramps, Respiratory disease, Arthritis, Liver disease, Thyroid Disease, Back Trouble, Diabetic, Heart/disease/failure, Radiation therapy, Abnormal bleeding, High blood pressure, Lung Disease, Peripheral vascular disease, Restless leg syndrome, Abdominal aortic aneurysm. * Medications: T aking Trelegy Ellipta 100-62.5-25 MCG/ACT Aerosol Powder Breath Activated 1 puff Inhalation Once a day , Taking Spironolactone 25 MG Tablet 1 tablet Orally , Taking Magnesium 400 MG Capsule as directed Orally , Taking Levothyroxine Sodium 100 MCG Tablet 1 tablet in the morning on an empty stomach Orally Once a day , Taking Iron 325 (65 Fe) MG Tablet 1 tablet Orally Three times a Week , Taking Furosemide 40 MG Tablet 1 tablet Orally Once a day , Taking Basaglar KwikPen 100 UNIT/ML Solution Pen-injector as directed Subcutaneous , Taking Amiodarone HCl 200 MG Tablet 1 tablet Orally Once a day , Taking Warfarin Sodium 2 MG Oral Tablet ORAL , Notes to Pharmacist: warfarin sodium 2 MG Oral TabletOriginal Medicationwarfarin sodium 2 MG Oral Tablet *Reorder from [employer] for eRx and Interaction Alerts*, Taking calcium carbonate 600 MG / ergocalciferol 200 UNT Oral Tablet ORAL , Notes to Pharmacist: calcium carbonate 600 MG / ergocalciferol 200 UNT Oral TabletOriginal Medicationcalcium carbonate 600 MG / ergocalciferol 200 UNT Oral Tablet *Reorder from [employer] for eRx and Interaction Alerts*, Taking metformin hydrochloride 500 MG Oral Tablet ORAL , Notes to Pharmacist: metformin hydrochloride 500 MG Oral TabletOriginal Medicationmetformin hydrochloride 500 MG Oral Tablet *Reorder from [employer] for eRx and Interaction Alerts*, Taking sertraline 100 MG Oral Tablet ORAL , Notes to Pharmacist: sertraline 100 MG Oral TabletOriginal Medicationsertraline 100 MG Oral Tablet *Reorder from [facility] for eRx and Interaction Alerts*, Not-Taking Lisinopril 40 MG Oral Tablet ORAL , Notes to Pharmacist: lisinopril 40 MG Oral TabletOriginal Medicationlisinopril 40 MG Oral Tablet *Reorder from [facility] for eRx and Interaction Alerts*, Not-Taking Anastrozole 1 MG Oral Tablet ORAL , Notes to Pharmacist: anastrozole 1 MG Oral TabletOriginal Medicationanastrozole 1 MG Oral Tablet *Reorder from [facility] for eRx and Interaction Alerts*, Not-Taking aspirin 81 MG Oral Tablet ORAL , Notes to Pharmacist: aspirin 81 MG Oral TabletOriginal Medicationaspirin 81 MG Oral Tablet *Reorder from [facility] for eRx and Interaction Alerts*, Not-Taking atorvastatin 40 MG Oral Tablet ORAL , Notes to Pharmacist: atorvastatin 40 MG Oral TabletOriginal Medicationatorvastatin 40 MG Oral Tablet *Reorder from [facility] for eRx and Interaction Alerts*, Not-Taking ferrous sulfate 325 MG Oral Tablet ORAL , Notes to Pharmacist: ferrous sulfate 325 MG Oral TabletOriginal Medicationferrous sulfate 325 MG Oral Tablet *Reorder from [facility] for eRx and Interaction Alerts* * Allergies: N SAIDs: Allergy. Objective: * Vitals: * Examination: P hysical Examination: V ascular: Dorsalis Pedis pulse noted at 1/4 right foot and 1/4 left foot and Posterior Tibial pulse noted at 1/4 right foot and 1/4 left foot, Capillary refill times noted to be less than three seconds x ten, Temperature gradient noted to be warm to cool to bilateral foot, pedal hair present to bilateral foot and no varicosities are noted Dermatologic: there are no open lesions, no signs of active clinical infection, no erythema noted, no ecchymoses, nails are elongated thickened and dystrophic with subungual debris x ten, hyperkeratotic tissue plantar medial hallux bilateral foot Musculoskeletal: there is pain to palpation onto nail plate x ten, no calf pain noted bilaterally, arch height noted at 2/5 non-weight bearing bilaterally, first metatarsophalangeal joint range of motion 30 deg non-weight bearing bilaterally, flexible fifth digit hammer toe deformity noted to bilateral foot reducible with kelikian push up test, pain to palpation plantar medial hallux hyperkeratotic tissue bilateral foot Neurology: protective sensation intact to light touch bilateral digits one through five, vibratory sensation intact to first metatarsophalangeal joint bilaterally. Assessment: * Assessment: 1. T inea unguium - B35.1 (Primary) 2 . O ther hammer toe(s) (acquired), right foot - M20.41 3 . O ther hammer toe(s) (acquired), left foot - M20.42 ? 4 . P ain in right toe(s) - M79.674 5 . P ain in left toe(s) - M79.675 6 . U nspecified atherosclerosis of belk[place]ski arteries of extremities, bilateral legs - I70.203 7 . A cquired keratosis [keratoderma] palmaris et plantaris - L85.1 8 . T ype 2 diabetes mellitus with diabetic peripheral angiopathy without gangrene - E11.51 Plan: * Treatment: 2. O ther hammer toe(s) (acquired), right foot Notes: The patient was educated regarding how to [...] were discussed, but conservative options were emphasized. 3. U nspecified atherosclerosis of [place] arteries of extremities, bilateral legs Notes: Patient educated on risks and aggravating factors of PVD, including conservative treatment options such as a diet and exercise regimen to aid in slowing progression of vascular disease ? 4. A cquired keratosis [keratoderma] palmaris et plantaris Notes: Pre-ulcerative keratoderma debrided sharply down to the level of healthy tissue using a 15 blade. After removal of overlying extensive hyperkeratosis, healthy tissue was noted and care was taken to assure that no undermining or probing was present. It should be noted that no probing was noted and no infection or drainage was noted. 5. T ype 2 diabetes mellitus with diabetic peripheral angiopathy without gangrene Notes: Patient educated on proper diabetic foot care [...] but not limited to nausea, vomiting, fever. * Procedure Codes: 1 1056 TRIM SKIN LESIONS, 2 TO 4, Modifiers: Q8 , 52058 DEBRIDE NAIL, 6 OR MORE, Modifiers: 59 , Q8 * Follow Up: 3 Months * Billing Information: * Visit Code: * Procedure Codes: 25741 TRIM SKIN LESIONS, 2 TO 4. Modifiers: Q8 09066 DEBRIDE NAIL, 6 OR MORE. Modifiers: 59, Q8 * P MACHINE OPERATOR Sign off status: Completed true * Provider: Lanie MUÑIZ Date: Generated for Rahul samano/Mignon/Jevon on: 0 01/04/2025 [...] Date last seen by Dr. Pool was 06/2024., Initials mca Examination Category Sub-Category Detail Notes Category Not es Physical Examination Vascular: Dorsalis Pedis pulse noted at 1/4 right foot and 1/4 left foot and Posterior Tibial pulse noted at 1/4 right foot and 1/4 left foot, Capillary refill times noted to be less than three seconds x ten, Temperature gradient noted to be warm to cool to bilateral foot, pedal hair present to bilateral foot and no varicosities are noted Dermatologic: there are no open lesions, no signs of active clinical infection, no erythema noted, no ecchymoses, nails are elongated thickened and dystrophic with subungual debris x ten, hyperkeratotic tissue plantar medial hallux bilateral foot Musculoskeletal: there is pain to palpation onto nail plate x ten, no calf pain noted bilaterally, arch height noted at 2/5 non-weight bearing bilaterally, first metatarsophalangeal joint range of motion 30 deg non-weight bearing bilaterally, flexible fifth digit hammer toe deformity noted to bilateral foot reducible with kelikian push up test, pain to palpation plantar medial hallux hyperkeratotic tissue bilateral foot Neurology: protective sensation intact to light touch bilateral digits one through five, vibratory sensation intact to first metatarsophalangeal joint bilaterally
--- OUTSIDE RECORDS SUMMARY | 2025-01-04 14:16 | XMS_ITS ---
Author Organization [facility] Address [address] [place], [place] [id number] Care Team Providers Care Finished Cigar Maker Name Role Phone INESSA Dugan Unavailable [phone] Lopez Pool Unavailable Unavailable PEDRITO MUÑIZ Unavailable [phone] REASON FOR VISIT *General care Medications Medication SIG (Take, Route, Frequency, Duration) Notes Start Date End Date Status atorvastatin 40 MG Oral Tablet ORAL atorvastatin 40 MG Oral TabletOriginal Medicationatorvastatin 40 MG Oral Tablet *Reorder from [employer] for eRx and Interaction Alerts* 6 Unknown sertraline 100 MG Oral Tablet ORAL sertraline 100 MG Oral TabletOriginal Medicationsertraline 100 MG Oral Tablet *Reorder from [employer] for eRx and Interaction Alerts* 6 Unknown metformin hydrochloride 500 MG Oral Tablet ORAL metformin hydrochloride 500 MG Oral TabletOriginal Medicationmetformin hydrochloride 500 MG Oral Tablet *Reorder from [employer] for eRx and Interaction Alerts* 6 Unknown ferrous sulfate 325 MG Oral Tablet ORAL ferrous sulfate 325 MG Oral TabletOriginal Medicationferrous sulfate 325 MG Oral Tablet *Reorder from [employer] for eRx and Interaction Alerts* 6 Unknown calcium carbonate 600 MG / ergocalciferol 200 UNT Oral Tablet ORAL calcium carbonate 600 MG / ergocalciferol 200 UNT Oral TabletOriginal Medicationcalcium carbonate 600 MG / ergocalciferol 200 UNT Oral Tablet *Reorder from [employer] for eRx and Interaction Alerts* 6 Unknown aspirin 81 MG Oral Tablet ORAL aspirin 81 MG Oral TabletOriginal Medicationaspirin 81 MG Oral Tablet *Reorder from [facility] for eRx and Interaction Alerts* 6 Unknown Anastrozole 1 MG Oral Tablet ORAL anastrozole 1 MG Oral TabletOriginal Medicationanastrozole 1 MG Oral Tablet *Reorder from [facility] for eRx and Interaction Alerts* 6 Unknown Lisinopril 40 MG Oral Tablet ORAL lisinopril 40 MG Oral TabletOriginal Medicationlisinopril 40 MG Oral Tablet *Reorder from [facility] for eRx and Interaction Alerts* 6 Unknown Warfarin Sodium 2 MG Oral Tablet ORAL warfarin sodium 2 MG Oral TabletOriginal Medicationwarfarin sodium 2 MG Oral Tablet *Reorder from [facility] for eRx and Interaction Alerts* 6 Unknown Encounters Encounter Location Date Provider Diagnosis [address] [id number] 06/09/2024 PEDRITO MUÑIZ Other hammer toe(s) (acquired), right foot M20.41 ; Tinea unguium B35.1 ; Other hammer toe(s) (acquired), left foot M20.42 ; Pain in right toe(s) M79.674 ; Pain in left toe(s) M79.675 ; Unspecified atherosclerosis of [place] arteries of extremities, bilateral legs I70.203 ; Acquired keratosis [keratoderma] palmaris et plantaris L85.1 and Type 2 diabetes mellitus with diabetic peripheral angiopathy without gangrene E11.51 Assessments Encounter Date Diagnosis (ICD Code) Assessment Notes Treatment Notes Treatment Clinical Notes Section Notes 06/09/2024 Other hammer toe(s) (acquired), right foot [...] prescription treatments. 06/09/2024 Other hammer toe(s) (acquired), left foot (ICD-10 - M20.42) 06/09/2024 Pain in right toe(s) (ICD-10 - M79.674) 06/09/2024 Pain in left toe(s) (ICD-10 - M79.675) 06/09/2024 Unspecified atherosclerosis of [place] arteries of extremities, bilateral legs (ICD-10 - I70.203) Patient educated on risks and aggravating factors of PVD, including conservative treatment options such as a diet and exercise regimen to aid in slowing progression of vascular disease 06/09/2024 Acquired keratosis [keratoderma] palmaris et plantaris [...] no infection or drainage was noted. 06/09/2024 Type 2 diabetes mellitus with diabetic [...] OTC and prescription treatments. Unspecified atherosclerosis of [place] arteries of extremities, bilateral legs Patient educated [...] Reason: Provider Name:TONY KEENE, 01/19/2025 09:50:00 AM, [address] [place] [address], [id number], Progress Notes * WALKER KULKARNI LDOB:[birth year] (79 yo F)Acc No.[id number]:06/09/2024 Patient: WALKER ISAAC Provider: Lanie MUÑIZ :1945 A ge:79 Y S ex:Female Date:06/09/2024 Address:[address] [place], [place] [address] Subjective: * Chief Complaints: * 1 . *General care. * HPI: H PI: General care P atient presents to the office for diabetic foot care. Patient states that their nails are thickened, elongated and painful. Patient states that it is aggravated by shoe gear. Onset is gradual., Patient is taking prescription blood thinners., Date last seen by Dr. Pool was 03/2024., Initials [facility]. * ROS: G eneral / Constitutional: Patient denies w eakness. R espiratory: Patient denies c hronic cough, shortness of breath, sputum production. C ardiovascular: Patient denies c hest pain, history of [place], irregular heartbeat. M usculoskeletal: Patient complains of h ammertoes, arch pain. ? P eripheral Vascular: Patient denies b lanching of skin, cold extremities, decreased sensation in extremities. S kin: Patient complains of c alluses and corns, fungal nails, nail changes. N eurologic: Patient denies d izziness, gait abnormality, headache. * Medical History: * Medications: U nknown Warfarin Sodium 2 MG Oral Tablet ORAL , Notes to Pharmacist: warfarin sodium 2 MG Oral TabletOriginal Medicationwarfarin sodium 2 MG Oral Tablet *Reorder from [employer] for eRx and Interaction Alerts*, Unknown Lisinopril 40 MG Oral Tablet ORAL , Notes to Pharmacist: lisinopril 40 MG Oral TabletOriginal Medicationlisinopril 40 MG Oral Tablet *Reorder from [facility] for eRx and Interaction Alerts*, Unknown Anastrozole 1 MG Oral Tablet ORAL , Notes to Pharmacist: anastrozole 1 MG Oral TabletOriginal Medicationanastrozole 1 MG Oral Tablet *Reorder from [facility] for eRx and Interaction Alerts*, Unknown aspirin 81 MG Oral Tablet ORAL , Notes to Pharmacist: aspirin 81 MG Oral TabletOriginal Medicationaspirin 81 MG Oral Tablet *Reorder from [facility] for eRx and Interaction Alerts*, Unknown atorvastatin 40 MG Oral Tablet ORAL , Notes to Pharmacist: atorvastatin 40 MG Oral TabletOriginal Medicationatorvastatin 40 MG Oral Tablet *Reorder from [facility] for eRx and Interaction Alerts*, Unknown calcium carbonate 600 MG / ergocalciferol 200 UNT Oral Tablet ORAL , Notes to Pharmacist: calcium carbonate 600 MG / ergocalciferol 200 UNT Oral TabletOriginal Medicationcalcium carbonate 600 MG / ergocalciferol 200 UNT Oral Tablet *Reorder from [facility] for eRx and Interaction Alerts*, Unknown ferrous sulfate 325 MG Oral Tablet ORAL , Notes to Pharmacist: ferrous sulfate 325 MG Oral TabletOriginal Medicationferrous sulfate 325 MG Oral Tablet *Reorder from [facility] for eRx and Interaction Alerts*, Unknown metformin hydrochloride 500 MG Oral Tablet ORAL , Notes to Pharmacist: metformin hydrochloride 500 MG Oral TabletOriginal Medicationmetformin hydrochloride 500 MG Oral Tablet *Reorder from [facility] for eRx and Interaction Alerts*, Unknown sertraline 100 MG Oral Tablet ORAL , Notes to Pharmacist: sertraline 100 MG Oral TabletOriginal Medicationsertraline 100 MG Oral Tablet *Reorder from [facility] for eRx and Interaction Alerts* Objective: * Examination: P hysical Examination: V ascular: [...] hammer toe(s) (acquired), left foot - M20.42 4 . P ain in right toe(s) - M79.674 5 . P ain in left toe(s) - M79.675 6 . U nspecified atherosclerosis of [place] arteries of extremities, bilateral legs - I70.203 [...] were emphasized. 3. U nspecified atherosclerosis of [place] arteries of extremities, bilateral legs Notes: Patient [...] LESIONS, 2 TO 4, Modifiers: Q8 , 83922 DEBRIDE NAIL, 6 OR MORE, Modifiers: 59 , Q8 * Follow Up: 3 Months * Billing Information: * Visit Code: * Procedure Codes: 59800 TRIM SKIN LESIONS, 2 TO 4. Modifiers: Q8 43579 DEBRIDE NAIL, 6 OR MORE. Modifiers: 59, Q8 * Sign off status: Completed true * Provider: Lanie MUÑIZ Date: 0 06/09/2024 Generated for Rahul samano/Mignon/Jevon on: 0 01/04/2025 [...] Date last seen by Dr. Pool was 03/2024., Initials mca Examination Category Sub-Category Detail Notes [...]
--- OUTSIDE RECORDS SUMMARY | 2025-01-04 14:16 | XMS_ITS | Encounter Summary ---
Author Organization [facility] Address [address] [place] [address] Care Team Providers Care Linen Sorter Name Role Phone Elmer Wallace MD Primary Care Provider [phone] Lopez Pool MD Primary Care Provider [phone] Lopez Pool MD Unavailable [phone] Reason for Referral * Surgical (Routine) - Closed Specialty Diagnoses / Procedures Referred By Amanda asher Referred To Contact Diagnoses Z85.51 Procedures Case request operating room: CYSTOSCOPY Lorin Contreras III, MD Phone: tel: fax: Referral ID Status Reason Start Date Expiration Date Visits Re quested Visits Authorized [id number] Closed 03/22/2020 04/21/2021 1 1 Encounter Details Date Type Department Care Team (Late st Contact Info) Description 03/22/2020 Prep [facility] Procedure [facility] [address] [place] [address] [place] [address] [place] [address] [place] [phone] Social History Tobacco Use Types Packs/Day Years Used Date Smoking Tobacco: Former Smokeless Tobacco: Never Alcohol Use Standard Drinks/Week Comments No 0 (1 standard drink = 0.6 oz pur e alcohol) AUDIT-C Answer Date Recorded Frequency of Alcohol Consumption Never 07/25/2019 Average Number of Drinks Not on file 019 Frequency of Binge Drinking Not on file 1004/2019 Comments No Sex and Gender Information Value Date Recorded Sex Assigned at Female 11/01/2024 8:23 AM LICENSED EMBALMER Legal Sex Female 10:48 PM LICENSED EMBALMER Gender Identity Not on file Sexual Orientation Not on file COVID-19 Exposure Response Date Recorded In the last month, have you been in contact with someone who was confirmed or suspected to have Coronavirus / COVID-19? No / Unsure 03/24/2020 9:08 AM CDT documented as of this encounter Plan of Treatment Upcoming Encounters Date Type Department Care Team (Late st Contact Info) Description 02/07/2025 8:16 AM CDT Hospital Encounter [place] [address] [place], [place] [address] [address] [place] [address] [place] [phone] 02/07/2025 8:16 AM CDT - 02/07/2025 8:46 AM CDT Surgery [place] [facility] [place] [address] [address] [place] [address] [place] [phone] CYSTOSCOPY Scheduled Orders Name Type Priority Associated Diagnoses Orde r Schedule Case request operating room: CYSTOSCOPY Case Request Routine Once for 1 Occurrences starting 03/22/2020 until 03/22/2020 Scheduled Procedures Name Priority Associated Diagnoses Date/Ti [...] Rule Out 10/06/2021 10/06/2021 10/06/2021 8:43 PM LICENSED EMBALMER COVID-19 Rule Out 02/14/2022 02/14/2022 02/14/2022 8:59 AM CDT COVID-19 Rule Out 02/22/2022 02/22/2022 02/22/2022 2:34 AM CDT COVID-19 Rule Out 02/22/2022 02/22/2022 02/23/2022 11:16 AM CDT COVID-19 Rule Out 06/02/2022 06/02/2022 06/02/2022 9:32 PM CDT COVID-19 Confirmed 06/02/2022 06/02/2022 12:32 AM CDT COVID-19 Rule Out 09/03/2022 09/03/2022 09/03/2022 3:29 PM LICENSED EMBALMER COVID-19 Rule Out 10/25/2023 10/25/2023 10/25/2023 2:09 PM LICENSED EMBALMER documented as of this encounter Care Teams Linen Sorter Relationship Specialty Start Date End Date Elmer Wallace MD [address] [place] [phone] PCP - General FAMILY PRACTICE 06/14/19 03/20/22 Lopez Pool MD [address] [place] [address] PCP - General FAMILY PRACTICE 03/21/22 Lopez Pool MD [address] [place] [phone] FAMILY PRACTICE 03/21/22 documented as of this encounter
--- OUTSIDE RECORDS SUMMARY | 2025-01-04 14:16 | XMS_ITS | Encounter Summary ---
Author Organization [facility] Address [address] [place] [address] Care Team Providers Care Silk Conditioner Name Role Phone Elmer Wallace MD Primary Care Provider [phone] Lopez Pool MD Primary Care Provider [phone] Lopez Pool MD Unavailable [phone] Reason for Referral * Surgical (Routine) - Closed Specialty Diagnoses / Procedures Referred By Amanda asher Referred To Contact Diagnoses Z85.51 Procedures Case request operating room: CYSTOSCOPY Lorin Contreras III, MD Phone: tel: fax: Referral ID Status Reason Start Date Expiration Date Visits Re quested Visits Authorized [id number] Closed 04/04/2020 05/04/2021 1 1 Encounter Details Date Type Department Care Team (Late st Contact Info) Description 04/04/2020 Prep for Procedure [facility] [address] [facility] [place] [address] [place] [address] [place] [phone] Social History Tobacco Use Types Packs/Day Years Used Date Smoking Tobacco: Former Smokeless Tobacco: Never Alcohol Use Standard Drinks/Week Comments No 0 (1 standard drink = 0.6 oz pur e alcohol) AUDIT-C Answer Date Recorded Frequency of Alcohol Consumption Never 07/25/2019 Average Number of Drinks Not on file 019 Frequency of Binge Drinking Not on file 04/2019 Comments No Sex and Gender Information Value Date Recorded Sex Assigned at Female 11/01/2024 8:23 AM PHILOSOPHY SPECIALIST Legal Sex Female 10:48 PM PHILOSOPHY SPECIALIST Gender Identity Not on file Sexual Orientation Not on file COVID-19 Exposure Response Date Recorded In the last month, have you been in contact with someone who was confirmed or suspected to have Coronavirus / COVID-19? No / Unsure 03/30/2020 12:31 PM CDT documented as of this encounter Plan of Treatment Upcoming Encounters Date Type Department Care Team (Late st Contact Info) Description 02/07/2025 8:16 AM CDT Hospital Encounter [facility] [address] [place], [place] [address] [address] [place] [address] [place] [phone] 02/07/2025 8:16 AM CDT - 02/07/2025 8:46 AM CDT Surgery [facility] [place] [address] [address] [place] [address] [place] [phone] CYSTOSCOPY Scheduled Orders Name Type Priority Associated Diagnoses Orde r Schedule Case request operating room: CYSTOSCOPY Case Request Routine Once for 1 Occurrences starting 04/04/2020 until 04/04/2020 Scheduled Procedures Name Priority Associated Diagnoses Date/Ti me CYSTOSCOPY 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 02/07/2025 8:16 AM CDT documented as of this encounter Visit Diagnoses Not on filedocumented in this encounter Additional Health Concerns Infection Onset Date Last Indicated Resolved Time COVID-19 Rule Out 06/30/2020 06/30/2020 07/01/2020 7:55 PM CDT COVID-19 Rule Out 02/02/2021 02/02/2021 02/03/2021 1:02 PM CDT COVID-19 Rule Out 10/06/2021 10/06/2021 10/06/2021 8:43 PM PHILOSOPHY SPECIALIST COVID-19 Rule Out 02/14/2022 02/14/2022 02/14/2022 8:59 AM CDT COVID-19 Rule Out 02/22/2022 02/22/2022 02/22/2022 2:34 AM CDT COVID-19 Rule Out 02/22/2022 02/22/2022 02/23/2022 11:16 AM CDT COVID-19 Rule Out 06/02/2022 06/02/2022 06/02/2022 9:32 PM CDT COVID-19 Confirmed 06/02/2022 06/02/2022 12:32 AM CDT COVID-19 Rule Out 09/03/2022 09/03/2022 09/03/2022 3:29 PM PHILOSOPHY SPECIALIST COVID-19 Rule Out 10/25/2023 10/25/2023 10/25/2023 2:09 PM PHILOSOPHY SPECIALIST documented as of this encounter Care Teams Silk Conditioner Relationship Specialty Start Date End Date Elmer Wallace MD [address] [place] [phone] PCP - General FAMILY PRACTICE 06/14/19 03/20/22 Lopez Pool MD [address] [place] [address] PCP - General FAMILY PRACTICE 03/21/22 Lopez Pool MD [address] [place] [address] FAMILY PRACTICE 03/21/22 documented as of this encounter
== END 2025-01-04 12:49 | disposition home or self-care (01) ==
LOC: CHSLAB 12:50
PROVIDERS: PCP Family Medicine; Visit Provider Family Medicine
DX: D64.9 Anemia, unspecified (principal)
CPT/HCPCS: 36415; 85025

== ENCOUNTER 2025-01-10 16:23 | Outpatient (NON) | payer MEDICARE, SELFPAY ==
[2025-01-10 16:39] LABS: Basophils Absolute Auto 0.11 K/mm3 (0.00-0.10); Basophils Percent Auto 1.5 % (0.0-1.0); Eosinophils Absolute Auto 0.17 K/mm3 (0.02-0.50); Eosinophils Percent Auto 2.3 % (1.0-6.0); Hematocrit 39.1 % (35.0-42.0); Hemoglobin 10.9 g/dL (11.7-13.8); Immature Granulocyte Absolute 0.04 K/mm3 (0.00-0.00); Immature Granulocyte Percent A 0.6 % (0.0-0.0); Lymphocytes Absolute Auto 1.11 K/mm3 (1.10-4.50); Lymphocytes Percent Auto 15.3 % (18.0-42.0); Mean Corpuscular HGB Conc 27.9 g/dL (32-36); Mean Corpuscular Hemoglobin 24.1 pg (27.0-31.0); Mean Corpuscular Volume 86.3 fL (78.0-102.0); Mean Platelet Volume 11.6 fl (9.2-11.8); Monocytes Percent Auto 8.3 % (2.0-11.0); Neutrophils Absolute Auto 5.23 K/mm3 (1.70-7.20); Platelet Count Result 360 K/mm3 (150-420); Red Blood Count 4.53 M/mm3 (4.20-5.40); Red Cell Distribution Width 19.8 % (11.6-14.4); White Blood Count 7.3 K/mm3 (4.8-10.8)
[2025-01-10 16:50] LABS: INR 1.4; Prothrombin Time 14.9 Seconds (9.50-12.1)
--- OUTSIDE RECORDS SUMMARY | 2025-01-10 18:36 | XMS_ITS | Encounter Summary ---
Author Organization [facility] Address [address] [place] [address] Phone Care Team Providers Care Financial Manager Name Role Phone Hema Castaneda MD Unavailable [phone] Colleen Bain MD Unavailable [phone] Rosette Espinoza MD Unavailable [phone] Lopez Pool MD Primary Care Provider [phone] Jacqueline Schaeffer RN Unavailable Unavailable Jenni Hartley [...] any clubs o r organizations such as congregation groups, unions, fraternal or athletic groups, or [...] place to sleep or slept in a snf (including now)? 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 Not on file Not on file documented as of this encounter Plan of Treatment Upcoming Encounters Date Type Department Care Team (Latest Contact Info) Description 02/10/2025 7:30 AM CDT Hospital Encounter [facility] [place] [address] [place] [phone] Fred SullivanStamp Clerk, [address] [place] [phone] Patricia Smith MD [address] [facility] [address] [place] [phone] Atrial fibrillation, unspecified type (HCC) 02/10/2025 7:30 AM CDT - 02/10/2025 8:05 AM CDT Surgery [facility] [address] [phone] Patricia Smith MD [address] [facility] [address] [place] [phone] CARDIOVERSION documented as of this encounter Procedures Procedure Name Priority Date/Time Associated Diagnosis Comments PULMONARY - RESULT SCAN 12/09/2022 documented in this encounter Results * PULMONARY - RESULT SCAN (12/09/2022) Anatomical Region Laterality Modality Other us Provider Scanning Final Result documented in this encounter Visit Diagnoses Not on filedocumented in this encounter Care Teams Financial Manager Relationship Specialty Start Date End Date Lopez Pool MD PCP - General Family Medicine 03/18/22 Hema Castaneda MD Consulting Physician Cardiology 01/11/19 Colleen Bain MD Referring Physician Endocrinology Diabetes & Metabolism 04/07/19 Rosette Espinoza MD Referring Physician Cardiology 04/07/19 Jacqueline Schaeffer, publicist Failure Coordinator Cardiology 07/13/24 Jenni Hartley, RN Registered Nurse 07/13/24 08/01/24 Anat Hutchison 07/13/24 documented as of this encounter
--- OUTSIDE RECORDS SUMMARY | 2025-01-10 18:36 | XMS_ITS ---
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 Has [...] prescribed Assessment & Plan (12/09/2022 9:54 AM CLINICAL QUALITY ASSURANCE ASSOCIATE): -Labs dated 10/03/22: FT4 was 0.49, TSH [...] 12/19/2019 Assessment & Plan (10/01/2023 7:56 PM CLINICAL QUALITY ASSURANCE ASSOCIATE): Glucoses high but needs reliable test strips. [...] podiatry Assessment & Plan (12/09/2022 9:54 AM CLINICAL QUALITY ASSURANCE ASSOCIATE): -Currently prescribed insulin -metformin has been discontinued [...] podiatry Assessment & Plan (11/15/2021 11:27 AM CLINICAL QUALITY ASSURANCE ASSOCIATE): -Currently prescribed insulin and metformin -A1C recently [...] 12/19/2019 Assessment & Plan (10/01/2023 7:54 PM CLINICAL QUALITY ASSURANCE ASSOCIATE): Continue statin, optimize glycemic control. Assessment & [...] effects Assessment & Plan (12/08/2022 8:55 AM CLINICAL QUALITY ASSURANCE ASSOCIATE): -Lipid panel on 03/03/22: TC 108, trig [...] effects Assessment & Plan (11/15/2021 11:23 AM CLINICAL QUALITY ASSURANCE ASSOCIATE): -Will continue statin as it is being tolerated without side effects Stage 3b chronic kidney disease 03/20/2019 Assessment & Plan (10/01/2023 7:55 PM CLINICAL QUALITY ASSURANCE ASSOCIATE): Need optimal glycemic control, minimize risk of hypoglycemia. Assessment & Plan (06/15/2023 3:56 PM CDT): -CKD increases risk of hypoglycemia -Will closely monitor glucose pattern in ensure margin of safety Assessment & Plan (03/09/2023 8:23 AM CDT): -CKD increases risk of hypoglycemia -Will closely monitor glucose pattern in ensure margin of safety Assessment & Plan (12/08/2022 8:56 AM CLINICAL QUALITY ASSURANCE ASSOCIATE): -CKD increases risk of hypoglycemia -Will closely [...] monitor. Assessment & Plan (11/11/2021 12:00 PM CLINICAL QUALITY ASSURANCE ASSOCIATE): -CKD increases risk of hypoglycemia -Will closely [...] time. Assessment & Plan (12/09/2022 9:54 AM CLINICAL QUALITY ASSURANCE ASSOCIATE): -BP was 128/85 -Will continue same antihypertensive [...] MARI Assessment & Plan (11/11/2021 11:59 AM CLINICAL QUALITY ASSURANCE ASSOCIATE): -Will continue same antihypertensive medications at this time. Assessment & Plan (04/08/2019 7:29 AM CDT): Recent changes in medications. Defer to her Cardiology team Breast cancer ([facility]) 07/13/2018 Overview (07/13/2018): L radical mastectomy with chemo and XRT x [phone]. Assessment & Plan (03/17/2022 10:47 AM CDT): [...] AM CDT): C/w home anastrozole Stroke (cerebrum) ([facility]) 07/13/2018 Overview (07/13/2018): R body weak and [...] (goal 2-3) - cont sotolol, renally dosed matrix supervisor current use of anticoagulant therapy 0 03/24/2018 [...] dysfunction 02/22/2010 Chronic diastolic congestive heart failure ([facility]) 02/22/2010 Assessment & Plan (03/17/2022 10:47 AM [...]
--- OUTSIDE RECORDS SUMMARY | 2025-01-10 18:36 | XMS_ITS | Clinical Summary ---
Author Organization [facility] Address [address] [place] [address] Care Team Providers Care Heel Stiffener Name Role Phone Hema Castaneda MD Unavailable Colleen Bain MD Unavailable [phone] Дмитрий Torres MD Unavailable [phone] Lopez Pool MD Primary Care Provider [phone] Jacqueline Schaeffer RN Unavailable Unavailable Anat Hutchison [...] 1 tablet (137 mcg total) by mouth sleeve presser operator before breakfast 08/20/[address] [...] DAILY 90 tablet 3 08/19/20 24 Active blood glucose diagnostic (Contour Next [...] (six) hours as needed 09/19/20 24 Active FUROSEMIDE ORAL Take 60 mg by mouth daily Active furosemide (LASIX) 40 mg tablet TAKE ONE TABLET BY MOUTH DAILY 90 tablet 3 10/14/20 24 025 Discontin ued(Alter randall therapy) Active Problems Problem Noted Date Diagnosed Date 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 Has [...] prescribed Assessment & Plan (12/09/2022 9:54 AM DIRECTOR TRUST): -Labs dated 10/03/22: FT4 was 0.49, TSH [...] 8:24 AM CDT): -follows with Pulm Dr. Varlea -as per Pulm notes on 04/30/2021: Previously [...] 12/19/2019 Assessment & Plan (10/01/2023 7:56 PM DIRECTOR TRUST): Glucoses high but needs reliable test strips. [...] podiatry Assessment & Plan (12/09/2022 9:54 AM DIRECTOR TRUST): -Currently prescribed insulin -metformin has been discontinued [...] will adjust insulin from there. (Addendum per Stephany River, CHRISTY-Ashley on 07/16/22) -Discussed diet and activity modifications. [...] podiatry Assessment & Plan (11/15/2021 11:27 AM DIRECTOR TRUST): -Currently prescribed insulin and metformin -A1C recently [...] 12/19/2019 Assessment & Plan (10/01/2023 7:54 PM DIRECTOR TRUST): Continue statin, optimize glycemic control. Assessment & [...] effects Assessment & Plan (12/08/2022 8:55 AM DIRECTOR TRUST): -Lipid panel on 03/03/22: TC 108, trig [...] effects Assessment & Plan (11/15/2021 11:23 AM DIRECTOR TRUST): -Will continue statin as it is being tolerated without side effects Stage 3b chronic kidney disease 03/20/2019 Assessment & Plan (10/01/2023 7:55 PM DIRECTOR TRUST): Need optimal glycemic control, minimize risk of hypoglycemia. Assessment & Plan (06/15/2023 3:56 PM CDT): -CKD increases risk of hypoglycemia -Will closely monitor glucose pattern in ensure margin of safety Assessment & Plan (03/09/2023 8:23 AM CDT): -CKD increases risk of hypoglycemia -Will closely monitor glucose pattern in ensure margin of safety Assessment & Plan (12/08/2022 8:56 AM DIRECTOR TRUST): -CKD increases risk of hypoglycemia -Will closely [...] monitor. Assessment & Plan (11/11/2021 12:00 PM DIRECTOR TRUST): -CKD increases risk of hypoglycemia -Will closely [...] time. Assessment & Plan (12/09/2022 9:54 AM DIRECTOR TRUST): -BP was 128/85 -Will continue same antihypertensive [...] MARI Assessment & Plan (11/11/2021 11:59 AM DIRECTOR TRUST): -Will continue same antihypertensive medications at this time. Assessment & Plan (04/08/2019 7:29 AM CDT): Recent changes in medications. Defer to her Cardiology team Breast cancer ([facility]) 07/13/2018 Overview (07/13/2018): L radical mastectomy with chemo and XRT x [phone]. Assessment & Plan (03/17/2022 10:47 AM CDT): [...] AM CDT): C/w home anastrozole Stroke (cerebrum) ([facility]) 07/13/2018 Overview (07/13/2018): R body weak and [...] (goal 2-3) - cont sotolol, renally dosed group home current use of anticoagulant therapy 0 03/24/2018 [...] Encounters Date Type Department Care Team Description 01/09/2025 Telephone [facility] Transplant Heart [address] [place] [address] [place] [address]-71-3 [place] [address] Kiko Omalley 01/06/2025 Results Follow-Up [facility] Transplant Heart [address] [place] [address] [address] [employer] -[phone] [place] [address] Jenni Hartley, MIRI 01/06/2025 Anticoagulation Telephone Call [facility] Transplant Heart [address] [place] [address] [address] [employer] [phone] [place] [address] Jenni Hartley, RN Atrial fibrillation, unspecified type (HCC) (Primary Dx); group home current use of anticoagulant therapy 01/05/2025 1:40 PM CDT Office Visit [facility] Gastroenterology [address] [facility] 2nd Floor [address] [place] [address] Amanda Alonso PA Iron deficiency anemia, unspecified iron deficiency anemia type (Primary Dx); Gastrointestinal hemorrhage, unspecified gastrointestinal hemorrhage type; Gastric ulcer, unspecified chronicity, unspecified whether gastric ulcer hemorrhage or perforation present; Atrial fibrillation, unspecified type (HCC); Cardiomyopathy, idiopathic (HCC); Chronic diastolic congestive heart failure (CMS/HCC) (HCC); Cerebrovascular accident (CVA), unspecified mechanism (HCC); Centrilobular emphysema (HCC) 12/21/2024 Telephone [facility] Cardiology [address] [place] [address] Advanced Medicine 8th [place] [address] [place] [address] Дмитрий Torres MD appt 12/21/[address] 8th [place] [address] [place] [address] Дмитрий Torres MD 12/21/2024 Telephone [facility] Cardiology [address] [place] [address] 8th [place] [address] [place] [address] Дмитрий Torres MD 12/21/2024 Telephone [facility] Transplant Heart [address] [place], [place] [address] [place] [address] Kiko Omalley 12/19/2024 Orders Only [facility] Cardiology [facility] Office Building [address] [place] [address] Дмитрий Torres MD 12/19/2024 Telephone [facility] Transplant Heart [address] [place] [address] Kiko Omalley 12/19/2024 Orders Only [facility] Transplant Heart [address] [place], [place] [address]op [address] [place] [address] Jacqueline Schaeffer RN Chronic diastolic congestive heart failure (HCC) (Primary Dx) 12/16/2024 6:50 AM [facility] - 12/16/2024 11:59 PM DIRECTOR TRUST Hospital Encounter 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 anticoagulant therapy 12/16/2024 Telephone [facility] Cardiology [address] [facility] Advanced Medicine 8th [place] [address] [place] [address] Vijay Wheeler 12/16/2024 Telephone [facility] Transplant Heart [address] [facility] [address] [address] [place] [address] Jacqueline Schaeffer, MIRI 12/16/2024 Orders Only [facility] Transplant Heart [address] [place] [address] [address] [address] [place] [address] Deanne Peralta RN 12/16/2024 Results Follow-Up [facility] Cardiology [address] [facility] [address] [place] [address] Дмитрий Torres MD 12/14/2024 Telephone [facility] Transplant Heart [address] [place] [address] [address] [address] [place] [address] Jacqueline Schaeffer RN 12/12/2024 Telephone [facility] Transplant Heart [address] [place] [address] [address] [address] [place] [address] Alison Nye 12/12/2024 Telephone [facility] Cardiology [address] [facility] Advanced Medicine 8th [place] [address] [place] [address] Дмитрий Torres MD 12/09/2024 Anticoagulation Telephone Call [facility] Transplant Heart [address] [facility] [address] [phone] [place] [address] Jenni Hartley RN Atrial fibrillation, unspecified type (HCC) (Primary Dx); group home current use of anticoagulant therapy 12/07/2024 Telephone [facility] Cardiology [address] [place] [address] Advanced [facility] 8th [place] [address] [place] [address] Nanette Bingham 12/06/2024 10:12 AM DIRECTOR TRUST - 12/06/2024 11:59 PM DIRECTOR TRUST Hospital Encounter [facility] [address] [place] [address] SOB (shortness of breath) Discharge Disposition: Discharge to home or self care 12/06/2024 10:00 AM DIRECTOR TRUST Office Visit [facility] Pulmonary [address] [place] [address] [place] [address] [place] [address] Kiesha Varela MD SOB (shortness of breath) (Primary Dx); Chronic obstructive pulmonary disease, unspecified COPD type (HCC) 12/06/2024 8:54 AM DIRECTOR TRUST - 12/06/2024 11:59 PM DIRECTOR TRUST Hospital Encounter [facility] Pulmonary [address] [place] [address] [address] [place] [address] Chronic obstructive pulmonary disease, unspecified COPD type (HCC) Discharge Disposition: Discharge to home or self care 12/02/2024 8:45 AM DIRECTOR TRUST Office Visit [facility] Cardiology [address] [place] [address] [place] [address] [place] [address] Дмитрий Torres MD Atrial flutter, unspecified type (HCC) (Primary Dx); Pacemaker 12/02/2024 8:15 AM DIRECTOR TRUST Ancillary Procedure [facility] Cardiology [address] [place] [address] [place] [address] [place] [address] Sinus bradycardia (Primary Dx); Fitting or adjustment of cardiac pacemaker; Atrial fibrillation, unspecified type (HCC); Atrial flutter, unspecified type (HCC); Cardiomyopathy, idiopathic (HCC) 12/02/2024 Telephone [facility] Transplant Heart [address] [phone] [place] [address] ScarletKathryn 12/02/2024 Anticoagulation Telephone Call [facility] Transplant Heart [address] [place] [address] [address] [phone] [place] [address] Jenni Hartley RN Atrial fibrillation, unspecified type (HCC) (Primary Dx); group home current use of anticoagulant therapy 11/14/2024 Anticoagulation Telephone Call [facility] Transplant Heart [address] [place] [address] [address] [phone] [place] [address] Jenni Hartley RN Atrial fibrillation, unspecified type (HCC) (Primary Dx); terminal 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 Other emphysema (HCC) 01/11/2019 Family History Medical [...] Smoking Tobacco: Former Cigarettes Q uit: 2006 Passive Smoke Exposure: Past Smokeless Tobacco: Never Tobacco Cessation:Counseling Given: Not [...] 03/14/2022 How often do you attend chur [employer] or muslim services? Never 03/14/2022 Do you belong to any clubs o r organizations such as evangelical groups, unions, fraternal or athletic groups, or [...] place to sleep or slept in a detention (including now)? No 03/14/2022 Personal Safety Answer Date Recorded Have you ever been in or are you currently in a harmful physical or emotional relationship or is someone making you feel afraid or unsafe? 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 on file Not on file Not on file Obstetrics History Para Term AB IAB SAB Ectopic Multiple Livin g Live Births 1 1 Date Outcome GA Total Labor Labor/2nd/3rd Weight Sex Type Anes PTL Yisel A1 A5 Name Clin Para Last Filed Vital Signs Vital Sign Reading Time Taken Comments Blood Pressure 145/76 01/05/2025 1:38 PM CDT Pulse 72 01/05/2025 1:38 PM CDT Temperature 36.7 C (98.1 F) 01/05/2025 1:38 PM CDT Respiratory Rate 18 12/06/2024 9:26 AM DIRECTOR TRUST Oxygen Saturation 95% 01/05/2025 1:38 PM CDT Inhaled Oxygen Concentration - - Weight 106.4 kg (234 lb 9.6 oz) 01/05/2025 1:38 PM CDT Height 165.1 cm (5' 5 ) 01/05/2025 1:38 PM CDT Body Mass Index 39.04 01/05/2025 1:38 PM CDT Plan of Treatment Upcoming Encounters Date Type Department Care Team (Latest Contact Info) Description 02/10/2025 7:30 AM CDT Hospital Encounter [facility] Heart and Vascular [address] [place] [id number] Nate [employer] Or Surveillance Monitor, [address] [place] [address] Patricia Smith MD [address] [id number] Atrial fibrillation, unspecified type (HCC) 02/10/2025 7:30 AM CDT - 02/10/2025 8:05 AM CDT Surgery [facility] Heart counts include [facility] beds at [facility] Vascular [address] [place] [address] Patricia Smith MD [address] [address] [employer] Health Maintenance Due Date Last Done [...] 07/21/2016, 06/07/2014 Medical Devices Implanted Type Area Christmas Tree Farmer Device Identifier Shelf Expiration Date Model / Serial / Lot Pacemaker Pacemaker Right: Chest Procedures Procedure Name Priority Date/Time Associated Diagnosis Comments PROTIME-INR Routine 01/06/2025 11:21 AM CDT PROTIME-INR Routine 01/06/2025 DEVICE CHECK - REMOTE Routine 12/19/2024 3:31 AM DIRECTOR TRUST THYROID FUNCTION CASCADE Routine 12/16/2024 2:57 PM DIRECTOR TRUST Chronic diastolic congestive heart failure (HCC) TRANSTHORACIC ECHO (TTE) COMPLETE W DOPPLER/CF WO CONTRAST Routine 12/16/2024 7:57 AM DIRECTOR TRUST Atrial flutter, unspecified type (HCC) PROTIME-INR Routine 12/16/2024 PROTIME-INR Routine 12/09/2024 XR CHEST PA LATERAL 2 VIEWS Schedule Routine, Read Routine (OP Routine) 12/06/2024 10:18 AM DIRECTOR TRUST SOB (shortness of breath) PULMONARY FUNCTION TEST (PFT) Routine 12/06/2024 9:13 AM DIRECTOR TRUST Chronic obstructive pulmonary disease, unspecified COPD type (HCC) ECG 12-LEAD Routine 12/02/2024 9:17 AM DIRECTOR TRUST Atrial flutter, unspecified type (HCC) DEVICE CHECK - IN OFFICE Routine 12/02/2024 8:05 AM DIRECTOR TRUST Sinus bradycardia Fitting or adjustment of cardiac pacemaker COMPREHENSIVE METABOLIC PANEL Routine 09/01/2024 9:30 AM DIRECTOR TRUST On amiodarone therapy HEMOGLOBIN A1C Routine 10/02/2023 Type 2 diabetes mellitus with other specified complication, with long-term current use of insulin (HCC) LIPID PANEL Timed 03/03/2022 11:18 AM CDT DEXA APPENDICULAR BONE DENSITY Schedule Routine, Read Routine (OP Routine) 01/11/2019 2:40 PM CDT terminal supervisor current use of inhaled steroid Chronic obstructive pulmonary disease, unspecified COPD type (HCC) H/O inhaled steroid therapy from Last 3 Months or Most Recently Relevant to Health Maintenance Results * (ABNORMAL) Protime-INR (01/06/2025 11:21 AM CDT) SCRIBED PT 16.9(A) 9.4 - 12.5 sec EXTERNAL LAB SCRIBED INR 1.5(A) 2.0 - 3.0 sec EXTERNAL LAB Blood 01/06/2025 11:2 1 AM CDT us Lopez Pool MD LAB BLOOD ORDERABLES Final Re sult EXTERNAL LAB * (ABNORMAL) Protime-INR (01/06/2025) INR 1.50(A) 0.90 - 1.10 Blood 01/06/2025 us Historical Provider LAB BLOOD ORDERABLES Shalini l Result * DEVICE CHECK - REMOTE (12/19/2024 3:31 AM DIRECTOR TRUST) Anatomical Region Laterality Modality Other 12/19/2024 3:31 AM DIRECTOR TRUST Narrative 12/29/2024 12:55 PM CDT Interpretation Summary: Battery and Leads (BL) Normal parameters noted on battery and lead(s) --- 1.5 years remaining (this is an estimate based on prior usage) Presenting Rhythm (ME) Atrial Fibrillation or Flutter Ventricular Sensing (VS) [...] estimate based on prior usage) Presenting Rhythm (ME) Atrial Fibrillation or Flutter Ventricular Sensing (VS) --- rate 60-100's Arrhythmic events (AE) Persistent atrial fibrillation and/or flutter Anticoagulation (AC) Patient on anticoagulant therapy Patient prescribed Warfarin (Coumadin) Transmission Information (TI) Device Summary Report Result [facility] Дмитрий Torres MD CV CARDIAC SERVICES PROCEDURES Final Result * (ABNORMAL) Thyroid Function [place] (12/16/2024 2:57 PM DIRECTOR TRUST) Free T4 1.40 0.76 - 1.46 EXTERNAL LAB TSH 7.266(A) 0.358 - 3.740 uIU/mL EXTERNAL LAB Blood 12/16/2024 2:57 PM DIRECTOR TRUST Result [facility] Chanel Ponce NP LAB BLOOD ORDERABLES Final Result EXTERNAL LAB * TRANSTHORACIC ECHO (TTE) COMPLETE W DOPPLER/CF WO CONTRAST (12/16/2024 7:57 AM DIRECTOR TRUST) Anatomical Region Laterality Modality Ultrasound 12/16/2024 7:05 AM DIRECTOR TRUST Narrative 12/16/2024 9:43 AM DIRECTOR TRUST [facility] [place] [address] Transthoracic Echocardiographic Report Patient Name: WALKER HILLIARD L : 1945 (79y 6m) Gender: F Study Date: 12/16/2024 07:05:11 AM Ht(Inch): 65 Wt(Lb): 244.05 BSA: 2.25 Folded Towel Machine Operator: Thi Blankenship Location: [facility] Order Provider: ДМИТРИЙ TORRES Heart Rate: 81 BMI: 40.61 BP: 144 / 85 Quality: The study images were of technically adequate quality. Ref Provider: ДМИТРИЙ TORRES PROCEDURES: Echocardiographic Report: ([id number]) Transthoracic complete echo, 2D, spectral and tissue [...] By: Hema Aguilera M.D. 12/16/2024 9:42:53 AM DIRECTOR TRUST Electronically Signed By: Hema Aguilera M.D. 12/16/2024 9:42:53 AM DIRECTOR TRUST Procedure Note Hema Aguilera MD PhD - 12/16/2024 [facility] [place] [address] [place] [address] Transthoracic Echocardiographic Report Patient Name: WALKER HILLIARD L : 1945 (79y 6m) Gender: F Study Date: 12/16/2024 07:05:11 AM Ht(Inch): 65 Wt(Lb): 244.05 BSA: 2.25 Folded Towel Machine Operator: Thi Blankenship Location: [facility] Order Provider: ДМИТРИЙ TORRES Heart Rate: 81 BMI: 40.61 BP: 144 / 85 Quality: The study images were oftechnically adequate quality. Ref Provider: ДМИТРИЙ TORRES PROCEDURES: Echocardiographic Report: ([id number]) Transthoracic complete echo, 2D,spectral and tissue Doppler, [...] LA Length 4C 5.63 cm MV Decel Mqnm326.61 msec [ 104.00 - 258.00 ] LA [...] By: Hema Aguilera M.D. 12/16/2024 9:42:53 AM DIRECTOR TRUST Electronically Signed By: Hema Aguilera M.D. 12/16/2024 9:42:53 AM DIRECTOR TRUST Result [facility] Дмитрий Torres MD CV ECHO PROCEDURES Final Resul t * (ABNORMAL) Protime-INR (12/16/2024) INR 1.90(A) 0.90 - 1.10 Blood 12/16/2024 Result [facility] Provider LAB BLOOD ORDERABLES Shalini l Result * (ABNORMAL) Protime-INR (12/09/2024) INR 2.50(A) 0.90 - 1.10 Blood 12/09/2024 Result [facility] Provider LAB BLOOD ORDERABLES Shalini l Result * XR Chest Pa Lateral 2 Views (12/06/2024 10:18 AM DIRECTOR TRUST) Anatomical Region Laterality Modality Body, Chest N/A Computed Radiogr aphy 12/06/2024 10:5 3 AM DIRECTOR TRUST Impressions 12/06/2024 11:52 AM DIRECTOR TRUST Dual-lead pacemaker is seen in unchanged position [...] Mitul Howe M.D. Narrative 12/06/2024 11:52 AM DIRECTOR TRUST EXAMINATION: XR CHEST PA LATERAL 2 VIEWS [...] Pulmonary Function Test - (12/06/2024 9:13 AM DIRECTOR TRUST) [facility] FVC PRE 1.74 L [facility] FVC %PRE PRED 66 % [facility] FEV1 PRE 1.06 L [facility] FEV1 %PRE PRED 53 % [facility] FEV1/FVC PRE 61.0 % [facility] Anatomical Region Laterality Modality PFT 12/06/2024 8:59 AM DIRECTOR TRUST Narrative 12/08/2024 10:52 AM DIRECTOR TRUST PFT performed at:->[facility] U Adult PFT Lab- [facility]8D Procedure:->Spirometry Pulmonary Function [...] and %HbO2 is age dependent. However, the [facility] Pulmonary Function Laboratory defines hypoxemia as a PaO2 <56 mm Hg or a %HbO2 <89%. Starting on October of 2024 the [facility] Pulmonary Function Laboratory utilizes race neutral GLI Global normative equations. us Maurilio Horner MD PFT ORDERABLES F inal Result * ECG 12 lead (12/02/2024 9:17 AM DIRECTOR TRUST) Дмитрий Torres MD ECG ORDERABLES Edited Result - Final * DEVICE CHECK - IN OFFICE (12/02/2024 8:05 AM DIRECTOR TRUST) Anatomical Region Laterality Modality Other 12/02/2024 2:00 AM DIRECTOR TRUST Narrative 12/08/2024 10:47 AM DIRECTOR TRUST Interpretation Summary: Battery and Leads (BL) Normal parameters noted on battery and lead(s) Presenting Rhythm (ME) Ventricular Sensing (VS) Atrial Fibrillation or Flutter Ventricular Pacing ([employer] CONSULTANT) Arrhythmic events (AE) No new arrhythmic events in monitoring period Anticoagulation (AC) Patient on anticoagulant therapy Patient prescribed Warfarin (Coumadin) Procedure Note Дмитрий Torres MD - 12/08/2024 Interpretation Summary: Battery and Leads (BL) Normal parameters noted on battery and lead(s) Presenting Rhythm (ME) Ventricular Sensing (VS) Atrial Fibrillation or Flutter Ventricular Pacing ([employer] CONSULTANT) Arrhythmic events (AE) No new arrhythmic events in monitoring period Anticoagulation (AC) Patient on anticoagulant therapy Patient prescribed Warfarin (Coumadin) Дмитрий Torres MD CV CARDIAC SERVICES PROCEDURES Final Result * (ABNORMAL) Comprehensive metabolic panel (09/01/2024 9:30 AM DIRECTOR TRUST) SCRIBED Sodium 141 136 - 145 mmol/L [...] NO LAB FOUND SCRIBED eGFR in NonAfrican Cuban 34 >89 TXP NO LAB FOUND Blood 09/01/2024 9:30 AM DIRECTOR TRUST us Дмитрий Torres MD LAB BLOOD ORDERABLES Final Res ult TXP NO LAB FOUND * Hemoglobin A1c (10/02/2023) Blood Colleen Bain MD LAB BLOOD ORDERABLES Final Result EXTERNAL LAB * (ABNORMAL) Lipid panel (03/03/2022 11:18 AM CDT) Cholesterol 108 30 - 199 mg/dL [facility] Comment: Interpretive Data Ages < or [...] on 2018. Triglycerides 222(H) <=149 mg/dL [facility] Comment: Interpretive Data Ages < or [...] Pediatrics 2011;128:S213 2. NCEP Expert Panel. Circulation 2003;110:227 Current Interpretive Data was last revised on 2018. HDL 31(L) >=40 mg/dL [facility] Comment: Interpretive Data Ages < or = 19 years Acceptable: >45 mg/dL Borderline low: 40-45 mg/dL Low: <40 mg/dL Ages > or = 20 years Desirable: >or= 60 mg/dL Low: <40 mg/dL Literature References: 1. Expert Panel on Integrated Guidelines for Cardiovascular Health and Risk Reduction in Children and Adolescents. Pediatrics 2011;128:S213 2. NCEP Expert Panel. Circulation 2003;110:227 Current Interpretive Data was last revised on 2018. LDL, calculated 33 <=129 mg/dL [facility] Comment: Interpretive Data Ages < or [...] revised on 2018. Non-HDL Cholesterol 77 mg/dL [facility] Comment: Interpretive Data Ages < or [...] last revised on 2018. Chol/HDL ratio 3 [facility] Blood 03/03/2022 11:1 8 AM CDT 03/03/2022 12:31 PM CDT us Kal Mccray MD PhD LAB BLOOD ORDERABLES Shalini olivier Result [facility] Department [place] [address] * Dexa Bone Density (01/11/2019 2:40 PM CDT) Anatomical Region Laterality Modality Wrist N/A Radiographic Zeinab ging Narrative 01/13/2019 2:57 PM CDT Patient Name: Walker Hilliard Date of : 1945 Date of scan: 01/11/2019 Bone mineral density was performed on a Hologic Discovery Densitometer. Machine Cross-calibration and Precision studies [...] (1990) 2) Franci, Lancet 341 : 72-75 (1993) 3) Avinash, Journal Bone and Mineral Research [...] by the International Society of Clinical Densitometry. [id number] Berlin Escobar MD IMG DXA PROCEDURES Final Resul t from Last 3 Months or Most Recently Relevant to Health Maintenance Insurance MEDICARE [facility] MEDICARE SUPPLEMENT [facility] MEDICARE [facility] MEDICARE IDPA [facility] MEDICARE SUPPLEMENT Advance Directives For more information, please contact: [phone] * LIMITED - No CPR (Latest Code [...] 11:23 AM 03/18/2019 5:50 PM Care Teams Heel Stiffener Relationship Specialty Start Date End Date Lopez Pool MD PCP - General Family Medicine 03/18/22 Hema Castaneda MD Consulting Physician Cardiology 01/11/19 Colleen Bain MD Referring Physician Endocrinology Diabetes & Metabolism 04/07/19 Дмитрий Torres MD Referring Physician Cardiology 04/07/19 Jacqueline Schaeffer, test architect Failure Coordinator Cardiology 07/13/24 Anat Hutchison 07/13/24
--- OUTSIDE RECORDS SUMMARY | 2025-01-10 18:36 | XMS_ITS | Patient Health Record ---
Author Organization [facility] Address [address] [place], [place] [address] Care Team Providers Care Space Engineer Name Role Phone JOVANNI CAST Unavailable [phone] Lopez Pool Unavailable Unavailable PEDRITO MUÑIZ Unavailable [phone] Allergies Allergen (clinical drug ingredient) Drug/Non Drug [...] sulfate 325 MG Oral Tablet *Reorder from OmPrompt for eRx and Interaction Alerts* 6 Not-Takin g Furosemide 40 MG 1 tablet Orally Once a day Active sertraline 100 MG Oral Tablet ORAL sertraline 100 MG Oral TabletOriginal Medicationsertraline 100 MG Oral Tablet *Reorder from OmPrompt for eRx and Interaction Alerts* 6 Active Iron 325 (65 Fe) MG 1 tablet Orally Three times a Week Active metformin hydrochloride 500 MG Oral Tablet ORAL metformin hydrochloride 500 MG Oral TabletOriginal Medicationmetformin hydrochloride 500 MG Oral Tablet *Reorder from OmPrompt for eRx and Interaction Alerts* 6 Active Amiodarone HCl 200 MG 1 tablet Orally Once a day Active Basaglar KwikPen 100 UNIT/ML as directed Subcutaneous Active Lisinopril 40 MG Oral Tablet ORAL lisinopril 40 MG Oral TabletOriginal Medicationlisinopril 40 MG Oral Tablet *Reorder from [facility] for eRx and Interaction Alerts* 6 Not-Takin g Warfarin Sodium 2 MG Oral Tablet ORAL warfarin sodium 2 MG Oral TabletOriginal Medicationwarfarin sodium 2 MG Oral Tablet *Reorder from [facility] for eRx and Interaction Alerts* 6 Active Trelegy Ellipta 100-62.5-25 MCG/ACT 1 puff Inhalation Once a day Active aspirin 81 MG Oral Tablet ORAL aspirin 81 MG Oral TabletOriginal Medicationaspirin 81 MG Oral Tablet *Reorder from [facility] for eRx and Interaction Alerts* 6 Not-Takin g Anastrozole 1 MG Oral Tablet ORAL anastrozole 1 MG Oral TabletOriginal Medicationanastrozole 1 MG Oral Tablet *Reorder from [facility] for eRx and Interaction Alerts* 6 Not-Takin g Magnesium 400 MG as directed Orally Active calcium carbonate 600 MG / ergocalciferol 200 UNT Oral Tablet ORAL calcium carbonate 600 MG / ergocalciferol 200 UNT Oral TabletOriginal Medicationcalcium carbonate 600 MG / ergocalciferol 200 UNT Oral Tablet *Reorder from [facility] for eRx and Interaction Alerts* 6 Active Spironolactone 25 MG 1 tablet Orally Active atorvastatin 40 MG Oral Tablet ORAL atorvastatin 40 MG Oral TabletOriginal Medicationatorvastatin 40 MG Oral Tablet *[facility] for eRx and Interaction Alerts* 6 Not-Takin g Levothyroxine Sodium 100 MCG 1 tablet in the morning on an empty stomach Orally Once a day Active Vital Signs Height-cm 167.64 cm 01/28/2024 Weight-kg 113.4 kg 01/28/2024 Height 66 in 01/28/2024 Weight 250 lbs 01/28/2024 BMI 40.35 kg/m2 01/28/2024 Encounters Encounter Location Date Provider Diagnosis [address] [id number] 01/28/2024 PEDRITO MUÑIZ Other hammer toe(s) (acquired), right foot M20.41 ; Tinea unguium B35.1 ; Other hammer toe(s) (acquired), left foot M20.42 ; Pain in right toe(s) M79.674 ; Pain in left toe(s) M79.675 ; Unspecified atherosclerosis of [place] arteries of extremities, bilateral legs I70.203 ; Acquired keratosis [keratoderma] palmaris et plantaris L85.1 and Type 2 diabetes mellitus with diabetic peripheral angiopathy without gangrene E11.[address] [id number] 04/07/2024 PEDRITO MUÑIZ Other hammer toe(s) (acquired), right foot M20.41 ; Tinea unguium B35.1 ; Other hammer toe(s) (acquired), left foot M20.42 ; Pain in right toe(s) M79.674 ; Pain in left toe(s) M79.675 ; Unspecified atherosclerosis of [place] arteries of extremities, bilateral legs I70.203 ; Acquired keratosis [keratoderma] palmaris et plantaris L85.1 and Type 2 diabetes mellitus with diabetic peripheral angiopathy without gangrene E11.[address] [id number] 06/09/2024 PEDRITO MUÑIZ Other hammer toe(s) (acquired), right foot M20.41 ; Tinea unguium B35.1 ; Other hammer toe(s) (acquired), left foot M20.42 ; Pain in right toe(s) M79.674 ; Pain in left toe(s) M79.675 ; Unspecified atherosclerosis of [place] arteries of extremities, bilateral legs I70.203 ; Acquired keratosis [keratoderma] palmaris et plantaris L85.1 and Type 2 diabetes mellitus with diabetic peripheral angiopathy without gangrene E11.[address] [id number] 08/11/2024 PEDRITO MUÑIZ Other hammer toe(s) (acquired), right foot M20.41 ; Tinea unguium B35.1 ; Other hammer toe(s) (acquired), left foot M20.42 ; Pain in right toe(s) M79.674 ; Pain in left toe(s) M79.675 ; Unspecified atherosclerosis of [place] arteries of extremities, bilateral legs I70.203 ; Acquired keratosis [keratoderma] palmaris et plantaris L85.1 and Type 2 diabetes mellitus with diabetic peripheral angiopathy without gangrene E11.51 [facility] [address] [place], [place] [id number] 11/03/2024 JOVANNI CAST Tinea unguium B35.1 ; Pain in right foot M79.671 ; Pain in left foot M79.672 ; Atherosclerosis of [place] arteries of extremities with intermittent claudication, bilateral [...] toe(s) (ICD-10 - M79.674) 11/03/2024 Atherosclerosis of [place] arteries of extremities with intermittent claudication, bilateral [...] (ICD-10 - M79.675) 01/28/2024 Unspecified atherosclerosis of [place] arteries of extremities, bilateral legs (ICD-10 - I70.203) Patient educated on risks and aggravating factors of PVD, including conservative treatment options such as a diet and exercise regimen to aid in slowing progression of vascular disease 04/07/2024 Unspecified atherosclerosis of [place] arteries of extremities, bilateral legs (ICD-10 - I70.203) Patient educated on risks and aggravating factors of PVD, including conservative treatment options such as a diet and exercise regimen to aid in slowing progression of vascular disease 06/09/2024 Unspecified atherosclerosis of [place] arteries of extremities, bilateral legs (ICD-10 - I70.203) Patient educated on risks and aggravating factors of PVD, including conservative treatment options such as a diet and exercise regimen to aid in slowing progression of vascular disease 08/11/2024 Unspecified atherosclerosis of [place] arteries of extremities, bilateral legs (ICD-10 - [...] Of Treatment Next Appt Details Provider Name:TONY Barragan MIRNA KEENE, 01/19/2025 09:50:00 AM, [address] [place] [address], [place], [place], [id number], Insurance Providers Payer Name Payer Address Payer Phone Subscriber Number Group Number Insured Name Patient Relationship to Insured Coverage Start Date Coverage End Date Medicare Part B [place] [address] [place] [address] [id number] WALKER KULKARNI Self - patient is the insured [facility] ([facility]) ATTN CLAIMS [address] [place] [address] [id number] WALKER KULKARNI Self - patient is the insured Medical (General) History Medical History History ICD Code acid reflux Blood transfusion neuropathy Pneumonia stroke anemia Cancer Leg/Feet cramps Respiratory disease Arthritis Liver disease Thyroid Disease Back Trouble Diabetic heart/disease/failure Radiation therapy abnormal bleeding high blood pressure Lung Disease peripheral vascular disease restless leg syndrome abdominal aortic aneurysm
--- OUTSIDE RECORDS SUMMARY | 2025-01-10 18:36 | XMS_ITS | Encounter Summary ---
Author Organization [facility] [employer] [facility] Address [address] [place] [address] Phone Care Team Providers Care Market Asset Protection Manager Name Role Phone Hema Castaneda MD Unavailable [phone] Colleen Bain MD Unavailable [phone] Rosette Espinoza MD Unavailable [phone] Lopez Pool MD Primary Care Provider [phone] Jacqueline Schaeffer RN Unavailable Unavailable Anat Hutchison [...] any clubs o r organizations such as restoration groups, unions, fraternal or athletic groups, or [...] place to sleep or slept in a nursing home (including now)? No 03/14/2022 Personal Safety Answer Date Recorded Have you ever been in or are you currently in a harmful physical or emotional relationship or is someone making you feel afraid or unsafe? 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 on file Not on file Not on file documented as of this encounter Plan of Treatment Upcoming Encounters Date Type Department Care Team (Latest Contact Info) Description 02/10/2025 7:30 AM CDT Hospital Encounter [facility] Vascular [place] [address] [place] [phone] Fred SullivanVeterinary Anatomist, [address] [place] [address] Patricia Smith MD [address] [facility] [address] [place], [place] [id number] Atrial fibrillation, unspecified type (HCC) 02/10/2025 7:30 AM CDT - 02/10/2025 8:05 AM CDT Surgery [facility] Vascular [address] [phone] Patricia Smith MD [address] [facility] [address] [place] [address] CARDIOVERSION documented as of this encounter Procedures Procedure Name Priority Date/Time Associated Diagnosis Comments CARDIOLOGY DOCUMENT SCAN 08/04/2024 documented in this encounter Results * Cardiology Document Scan (08/04/2024) Anatomical Region Laterality Modality Other Provider Scanning CV CARDIAC SERVICES PROCEDURES Final Result documented in this encounter Visit Diagnoses Not on filedocumented in this encounter Care Teams Market Asset Protection Manager Relationship Specialty Start Date End Date Lopez Pool MD PCP - General Family Medicine 03/18/22 Hema Castaneda MD Consulting Physician Cardiology 01/11/19 Colleen Bain MD Referring Physician Endocrinology Diabetes & Metabolism 04/07/19 Rosette Espinoza MD Referring Physician Cardiology 04/07/19 Jacqueline Schaeffer, outside residential sales professional Failure Coordinator Cardiology 07/13/24 Anat Hutchison 07/13/24 documented as of this encounter
--- OUTSIDE RECORDS SUMMARY | 2025-01-10 18:36 | XMS_ITS | Encounter Summary ---
Author Organization [facility] [employer] [facility] Address [address] [place] [address] Phone Care Team Providers Care Licensed Pharmacist Name Role Phone Elmer Wallace MD Primary Care Provider Hema Castaneda MD Unavailable [phone] Colleen Bain MD Unavailable [phone] Rosette Espinoza MD Unavailable [phone] Jenni Hartley RN Unavailable Unavailable Meenu Jones NP Unavailable [phone] Lopez Pool MD Primary Care Provider [phone] Jacqueline Schaeffer RN Unavailable Unavailable Jenni Hartley [...] on file Legal Sex Female 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 AM 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 Gender Identity Female 07/13/2018 9:28 AM CDT Sexual Orientation Not on file 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 Not on file Not on file documented as of this encounter Plan of Treatment Upcoming Encounters Date Type Department Care Team (Latest Contact Info) Description 02/10/2025 7:30 AM CDT Hospital Encounter [facility] Vascular [place] 1 [place] [phone] Fred SullivanElectronics Worker, [address] [place] [address] Patricia Smith MD [address] [facility] [address] [place], [place] [phone] Atrial fibrillation, unspecified type (HCC) 02/10/2025 7:30 AM CDT - 02/10/2025 8:05 AM CDT Surgery [facility] Vascular [address] [phone] Patricia Smith MD [address] [facility] [address] [place], [place] [id number] CARDIOVERSION documented as of this encounter Procedures [...] documented as of this encounter Care Teams Licensed Pharmacist Relationship Specialty Start Date End Date Elmer Wallace MD PCP - General 02/09/17 03/17/22 Lopez Pool MD PCP - General Family Medicine 03/18/22 Hema Castaneda MD Consulting Physician Cardiology 01/11/19 Colleen Bain MD Referring Physician Endocrinology Diabetes & Metabolism 04/07/19 Rosette Espinoza MD Referring Physician Cardiology 04/07/19 Jenni Hartley, RN Registered Nurse Cardiology 04/02/21 04/22/21 Meenu Jones NP Flatbed Press Operator Cardiology 04/02/21 04/22/21 Jacqueline Schaeffer, electronics teacher Failure Coordinator Cardiology 07/13/24 Jenni Hartley, RN Registered Nurse 07/13/24 08/01/24 Anat Hutchison 07/13/24 documented as of this encounter
--- OUTSIDE RECORDS SUMMARY | 2025-01-10 18:36 | XMS_ITS | Encounter Summary ---
Author Organization [facility] Address [address] [place] [address] Phone Care Team Providers Care Refrigerating Technician Name Role Phone Hema Castaneda MD Unavailable [phone] Colleen Bain MD Unavailable [phone] Rosette Espinoza MD Unavailable [phone] Lopez Pool MD Primary Care Provider [phone] Jacqueline Schaeffer RN Unavailable Unavailable Anat Hutchison Unavailable Unavailable Encounter Details Date Type Department Care Team (Late st Contact Info) Description 12/21/2024 Telephone [facility] Cardiology [address] [facility] Advanced Medicine 8th [place] [address] [place] [address] Rosette Espinoza MD [address] [facility] [address] [place] [address] Social History Tobacco Use Types Packs/Day Years [...] often do you attend chur ch or anabaptist services? Never 03/14/2022 Do you belong to any clubs o r organizations such as synagogue groups, unions, fraternal or athletic groups, or [...] place to sleep or slept in a fci (including now)? No 03/14/2022 Personal Safety Answer Date Recorded Have you ever been in or are you currently in a harmful physical or emotional relationship or is someone making you feel afraid or unsafe? 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 Vijay Warner BUILDER * Telephone Encounter - Vijay Wheeler - [...] can have a Watchman? Thank you, Vijay BUILDER * Telephone Encounter - Brinda Limon - 12/21/2024 9:34 AM CST Olga Patient's daughter Tyra would like a return call regarding Warfarin and cardioversion. She can be reached at [phone]. BUILDER documented in this encounter Plan of Treatment Upcoming Encounters Date Type Department Care Team (Latest Contact Info) Description 02/10/2025 7:30 AM CDT Hospital Encounter [facility] [address] [place] [address] Nate Marketing Budget Analyst, [address] [place] [address] Patricia Smith MD [address] [address] Atrial fibrillation, unspecified type (HCC) 02/10/2025 7:30 AM CDT - 02/10/2025 8:05 AM CDT Surgery [facility] 1 [place] [phone] Patricia Smith MD [address] [id number] CARDIOVERSION documented as of this encounter Visit Diagnoses Not on filedocumented in this encounter Care Teams Refrigerating Technician Relationship Specialty Start Date End Date Lopez Pool MD PCP - General Family Medicine 03/18/22 Hema Castaneda MD Consulting Physician Cardiology 01/11/19 Colleen Bain MD Referring Physician Endocrinology Diabetes & Metabolism 04/07/19 Rosette Espinoza MD Referring Physician Cardiology 04/07/19 Jacqueline Schaeffer, precinct i police sergeant Failure Coordinator Cardiology 07/13/24 Anat Hutchison 07/13/24 documented as of this encounter
--- OUTSIDE RECORDS SUMMARY | 2025-01-10 18:36 | XMS_ITS | Continuity of Care Document ---
Author Organization [facility] Address [address] [place] [address] [place] [address] Phone Care Team Providers Care Nascar Racer Name Role Phone Jimmy Blackwell DO Unavailable Unavailable Advance Directives Directive Yes / No Effective Date File Name No Information Encounters Encounter Description Practice Location Reason(s) For Visit Diagnoses Date Provider Providers Copied on Encounter [facility], [address], [place], [place], [id number], tel:[phone] [facility] No Information Rosalva Ibarra. [address] [place], [address], [place]. tel: [phone] Family History Family Member Type Diagnosis Age At Onset No Information Payers Payer name Insurance type Covered democrat ID Authoriza tion(s) [facility] [id number] [facility] [id number] Social History Type Description Quantity Date Captured [...]
--- OUTSIDE RECORDS SUMMARY | 2025-01-10 18:36 | XMS_ITS | Encounter Summary ---
Author Organization [facility] [employer] [facility] Address [address] [place] [address] Phone Care Team Providers Care Seed Technician Name Role Phone Elmer Wallace MD Primary Care Provider Hema Castaneda MD Unavailable [phone] Colleen Bain MD Unavailable [phone] Rosette Espinoza MD Unavailable [phone] Jenni Hartley RN Unavailable Unavailable Meenu Jones NP Unavailable [phone] Lopez Pool MD Primary Care Provider [phone] Jacqueline Schaeffer RN Unavailable Unavailable Jenni Hartley [...] on file Legal Sex Female 3:00 AM NIP WRAPPER Gender Identity Female 07/13/2018 9:28 AM CDT Sexual Orientation Not on file 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 file Not on file Not on file documented as of this encounter Plan of Treatment Upcoming Encounters Date Type Department Care Team (Latest Contact Info) Description 02/10/2025 7:30 AM CDT Hospital Encounter [facility] [place] 1 [place] [phone] Fred SullivanMovement Education Specialist, [address] [place] [address] Patricia Smith MD [address] [facility] [address] [place], [place] [phone] Atrial fibrillation, unspecified type (HCC) 02/10/2025 7:30 AM CDT - 02/10/2025 8:05 AM CDT Surgery [facility] [address] [phone] Patricia Smith MD [address] [facility] [address] [place], [place] [phone] CARDIOVERSION documented as of this encounter Procedures [...] documented as of this encounter Care Teams Seed Technician Relationship Specialty Start Date End Date Elmer Wallace MD PCP - General 02/09/17 03/17/22 Lopez Pool MD PCP - General Family Medicine 03/18/22 Hema Castaneda MD Consulting Physician Cardiology 01/11/19 Colleen Bain MD Referring Physician Endocrinology Diabetes & Metabolism 04/07/19 Rosette Espinoza MD Referring Physician Cardiology 04/07/19 Jenni Hartley, RN Registered Nurse Cardiology 04/02/21 04/22/21 Meenu Jones NP Director Of Psychiatry Cardiology 04/02/21 04/22/21 Jacqueline Schaeffer, disability examiner Failure Coordinator Cardiology 07/13/24 Jenni Hartley, RN Registered Nurse 07/13/24 08/01/24 Anat Hutchison 07/13/24 documented as of this encounter
--- OUTSIDE RECORDS SUMMARY | 2025-01-10 18:36 | XMS_ITS | Referral Summary ---
Author Organization [facility] Address [address] [place] [address] Care Team Providers Care Greenskeeper Laborer Name Role Phone Hema Castaneda MD Unavailable [phone] Colleen Bain MD Unavailable [phone] Дмитрий Torres MD Unavailable [phone] Lopez Pool MD Primary Care Provider [phone] Jacqueline Schaeffer RN Unavailable Unavailable Anat Hutchison Unavailable Unavailable Encounters Date Type Department Care Team Description 01/09/2025 Telephone [facility] Transplant Heart [address] [place] [address] [address] 90-79-207 [place] [address] Kiko Omalley 01/06/2025 Results Follow-Up [facility] Transplant Heart [address] [place] [address] [address] 57-50-423 [place] [address] Jenni Hartley, RN 01/06/2025 Anticoagulation Telephone Call [facility] Transplant Heart [address] [place] [address] [address] 40-75-791 [place] [address] Jenni Hartley, RN Atrial fibrillation, unspecified type (HCC) (Primary Dx); assistant terminal manager current use of anticoagulant therapy 01/05/2025 1:40 PM CDT Office Visit [facility] Gastroenterology [address] 2nd [address] [place] [address] Amanda Alonso PA Iron deficiency anemia, unspecified iron deficiency anemia type (Primary Dx); Gastrointestinal hemorrhage, unspecified gastrointestinal hemorrhage type; Gastric ulcer, unspecified chronicity, unspecified whether gastric ulcer hemorrhage or perforation present; Atrial fibrillation, unspecified type (HCC); Cardiomyopathy, idiopathic (HCC); Chronic diastolic congestive heart failure (CMS/HCC) (HCC); Cerebrovascular accident (CVA), unspecified mechanism (HCC); Centrilobular emphysema (HCC) 12/21/2024 Telephone [facility] Cardiology Critical access hospital1 [facility] Advanced Medicine 8th [place] [address] [place] [address] Дмитрий Torres MD appt 12/21/2024 Telephone [facility] Cardiology Critical access hospital1 [facility] 8th [place] [address] [place] [address] Дмитрий Torres MD 12/21/2024 Telephone [facility] Cardiology Critical access hospital1 [facility] Advanced Medicine 8th [place] [address] [place] [address] Дмитрий Torres MD 12/21/2024 Telephone [facility] Transplant Heart [address] [place] [address] [place] [address] Kiko Omalley 12/19/2024 Orders Only [facility] Cardiology [address] [facility] Medical Office Building 3 [address] [place] [address] Дмитрий Torres MD 12/19/2024 Telephone [facility] Transplant Heart [address] [facility] [address] -[address] [place] [address] Kiko Omalley 12/19/2024 Orders Only [facility] Transplant Heart [address] [facility] [address] 90-06[address] [place] [address] Jacqueline Schaeffer RN Chronic diastolic congestive heart failure (HCC) (Primary Dx) 12/16/2024 Anticoagulation Telephone Call [facility] Transplant Heart [address] [facility] 3401 [address] 90-37-216 [place] [address] Jacqueline Schaeffer RN Atrial fibrillation, unspecified type (HCC) (Primary Dx); assistant terminal manager current use of anticoagulant therapy 12/16/2024 Telephone [facility] Cardiology [address] [facility] Medicine 8th [place] [address] [place] [address] Vijay Wheeler 12/16/2024 Telephone [facility] Transplant Heart [address] [place] [address] [address] 9029-106 [place] [address] Jacqueline Schaeffer RN 12/16/2024 Orders Only [facility] Transplant Heart [address] [place] [address] 3401 [address] -90-6 [place] [address] Deanne Peralta RN 12/16/2024 Results Follow-Up [facility] Cardiology [address] [facility] [address] [place] [address] Дмитрий Torres MD 12/16/2024 6:50 AM [facility] - 12/16/2024 11:59 PM [facility] Cardiac Diagnostic Lab [address] [facility] 8th [place] [address] Atrial flutter, unspecified type (HCC) Discharge Disposition: Discharge to home or self care 12/14/2024 Telephone [facility] Transplant Heart [address] [place] [address] 34[address] [phone] [place] [address] Jacqueline Schaeffer, RN 12/12/2024 Telephone [facility] Transplant Heart [address] [place] [address] 3401 [address] 90-58-426 [place] [address] Alison Nye 12/12/2024 Telephone [facility] Cardiology [address] [facility] Medicine 8th [place] [address] [place] [address] Дмитрий Torres MD 12/09/2024 Anticoagulation Telephone Call [facility] Transplant Heart [address] [facility] 3401 Mailstop -[phone] [place] [address] Jenni Hartley RN Atrial fibrillation, unspecified type (HCC) (Primary Dx); snf current use of anticoagulant therapy 12/07/2024 Telephone [facility] Cardiology Critical access hospital1 [facility] Advanced Medicine 8th [place] [address] [place] [address] Nanette Bingham 12/06/2024 10:12 AM SEX WORKER OR ESCORT - 12/06/2024 11:59 PM SEX WORKER OR ESCORT Hospital Encounter [facility] [address] [place] [address] SOB (shortness of breath) Discharge Disposition: Discharge to home or self care 12/06/2024 10:00 AM SEX WORKER OR ESCORT Office Visit [facility] Pulmonary [address] [place] [address] 8th [place] [address] [place] [address] Kiesha Varela MD SOB (shortness of breath) (Primary Dx); Chronic obstructive pulmonary disease, unspecified COPD type (HCC) 12/06/2024 8:54 AM SEX WORKER OR ESCORT - 12/06/2024 11:59 PM SEX WORKER OR ESCORT Hospital Encounter [facility] Pulmonary [address] [facility] [address] [place] [address] Chronic obstructive pulmonary disease, unspecified COPD type (HCC) Discharge Disposition: Discharge to home or self care 12/02/2024 Telephone [facility] Transplant Heart [address] [facility] 3401 Mailstop -[phone] [place] [address] Kathryn Novak 12/02/2024 Anticoagulation Telephone Call [facility] Transplant Heart [address] [facility] 3401 Mailstop -[phone] [place] [address] Jenni Hartley RN Atrial fibrillation, unspecified type (HCC) (Primary Dx); assistant terminal manager current use of anticoagulant therapy 12/02/2024 8:45 AM SEX WORKER OR ESCORT Office Visit [facility] Cardiology [address] [place] [address] 8th [place] [address] [place] [address] Дмитрий Torres MD Atrial flutter, unspecified type (HCC) (Primary Dx); Pacemaker 12/02/2024 8:15 AM SEX WORKER OR ESCORT Ancillary Procedure [facility] Cardiology [address] [facility] 8th [place] [address] [place] [address] Sinus bradycardia (Primary Dx); Fitting or adjustment of cardiac pacemaker; Atrial fibrillation, unspecified type (HCC); Atrial flutter, unspecified type (HCC); Cardiomyopathy, idiopathic (HCC) 11/14/2024 Anticoagulation Telephone Call [facility] Transplant Heart [address] [place] [address] 3406 [address] [phone] [place] [address] Jenni Hartley RN Atrial fibrillation, unspecified type (HCC) (Primary Dx); assistant terminal manager current use of anticoagulant therapy 10/27/2024 Anticoagulation - Other Visit (DOAC) [facility] Transplant Heart [address] [place] [address] 3[address] 46-52-608 [place] [address] Jenni [place]ley RN Atrial fibrillation, unspecified type (HCC) (Primary Dx); assistant terminal manager current use of anticoagulant therapy from Last [...] 1 tablet (137 mcg total) by mouth front office java developer before breakfast 08/20/[address] [...] Active Problems Problem Noted Date Diagnosed Date assistant terminal manager current use of amiodarone 07/22/2024 Acquired hypothyroidism 12/08/2022 Assessment & Plan (10/01/2023 7:53 PM SEX WORKER OR ESCORT): Symptomatically euthyroid but recent TSH elevated. Has [...] prescribed Assessment & Plan (12/09/2022 9:54 AM SEX WORKER OR ESCORT): -Labs dated 10/03/22: FT4 was 0.49, TSH [...] 12/19/2019 Assessment & Plan (10/01/2023 7:56 PM SEX WORKER OR ESCORT): Glucoses high but needs reliable test strips. [...] podiatry Assessment & Plan (12/09/2022 9:54 AM SEX WORKER OR ESCORT): -Currently prescribed insulin -metformin has been discontinued [...] adjust insulin from there. (Addendum per Stephany Rehg, KWAME on 07/16/22) -Discussed diet and activity modifications. [...] podiatry Assessment & Plan (11/15/2021 11:27 AM SEX WORKER OR ESCORT): -Currently prescribed insulin and metformin -A1C recently [...] 12/19/2019 Assessment & Plan (10/01/2023 7:54 PM SEX WORKER OR ESCORT): Continue statin, optimize glycemic control. Assessment & [...] effects Assessment & Plan (12/08/2022 8:55 AM SEX WORKER OR ESCORT): -Lipid panel on 03/03/22: TC 108, trig [...] effects Assessment & Plan (11/15/2021 11:23 AM SEX WORKER OR ESCORT): -Will continue statin as it is being tolerated without side effects Stage 3b chronic kidney disease 03/20/2019 Assessment & Plan (10/01/2023 7:55 PM SEX WORKER OR ESCORT): Need optimal glycemic control, minimize risk of hypoglycemia. Assessment & Plan (06/15/2023 3:56 PM CDT): -CKD increases risk of hypoglycemia -Will closely monitor glucose pattern in ensure margin of safety Assessment & Plan (03/09/2023 8:23 AM CDT): -CKD increases risk of hypoglycemia -Will closely monitor glucose pattern in ensure margin of safety Assessment & Plan (12/08/2022 8:56 AM SEX WORKER OR ESCORT): -CKD increases risk of hypoglycemia -Will closely [...] monitor. Assessment & Plan (11/11/2021 12:00 PM SEX WORKER OR ESCORT): -CKD increases risk of hypoglycemia -Will closely [...] time. Assessment & Plan (12/09/2022 9:54 AM SEX WORKER OR ESCORT): -BP was 128/85 -Will continue same antihypertensive [...] MARI Assessment & Plan (11/11/2021 11:59 AM SEX WORKER OR ESCORT): -Will continue same antihypertensive medications at this time. Assessment & Plan (04/08/2019 7:29 AM CDT): Recent changes in medications. Defer to her Cardiology team Breast cancer ([facility] 07/13/2018 Overview (07/13/2018): L radical mastectomy with chemo and XRT x [phone]. Assessment & Plan (03/17/2022 10:47 AM CDT): [...] AM CDT): C/w home anastrozole Stroke (cerebrum) ([facility]) 07/13/2018 Overview (07/13/2018): R body weak and [...] (goal 2-3) - cont sotolol, renally dosed assistant terminal manager current use of anticoagulant therapy 0 03/24/2018 [...] dysfunction 02/22/2010 Chronic diastolic congestive heart failure ([facility]/ HCC) 02/22/2010 Assessment & Plan (03/17/2022 10:47 [...] often do you attend chur ch or taoist services? Never 03/14/2022 Do you belong to any clubs o r organizations such as pentecostalism groups, unions, fraternal or athletic groups, or [...] place to sleep or slept in a assisted (including now)? No 03/14/2022 Personal Safety Answer Date Recorded Have you ever been in or are you currently in a harmful physical or emotional relationship or is someone making you feel afraid or unsafe? 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 Not on file Not on file Not on file Last Filed Vital Signs Vital Sign Reading Time Taken Comments Blood Pressure 145/76 01/05/2025 1:38 PM CDT Pulse 72 01/05/2025 1:38 PM CDT Temperature 36.7 C (98.1 F) 01/05/2025 1:38 PM CDT Respiratory Rate 18 12/06/2024 9:26 AM SEX WORKER OR ESCORT Oxygen Saturation 95% 01/05/2025 1:38 PM CDT Inhaled Oxygen Concentration - - Weight 106.4 kg (234 lb 9.6 oz) 01/05/2025 1:38 PM CDT Height 165.1 cm (5' 5 ) 01/05/2025 1:38 PM CDT Body Mass Index 39.04 01/05/2025 1:38 PM CDT Plan of Treatment Upcoming Encounters Date Type Department Care Team (Latest Contact Info) Description 02/10/2025 7:30 AM CDT Hospital Encounter [facility] Heart and Vascular Center [address] [place] [address] Nate Web Press Operator Apprentice, [address] [phone] Patricia Smith MD [address] [address] Atrial fibrillation, unspecified type (HCC) 02/10/2025 7:30 AM CDT - 02/10/2025 8:05 AM CDT Surgery [facility] Heart [facility] Vascular Center [address] [place] [address] Patricia Smith MD [address] [facility] [address] [place] [address] [employer] Medical Devices Implanted Type Area Rn Clinical Resource Device Identifier Shelf Expiration Date Model / Serial / Lot Pacemaker Pacemaker Right: Chest Procedures Procedure Name Priority Date/Time Associated Diagnosis Comments PROTIME-INR Routine 01/06/2025 11:21 AM CDT PROTIME-INR Routine 01/06/2025 DEVICE CHECK - REMOTE Routine 12/19/2024 3:31 AM SEX WORKER OR ESCORT THYROID FUNCTION CASCADE Routine 12/16/2024 2:57 PM SEX WORKER OR ESCORT Chronic diastolic congestive heart failure (HCC) TRANSTHORACIC ECHO (TTE) COMPLETE W DOPPLER/CF WO CONTRAST Routine 12/16/2024 7:57 AM SEX WORKER OR ESCORT Atrial flutter, unspecified type (HCC) PROTIME-INR Routine 12/16/2024 PROTIME-INR Routine 12/09/2024 XR CHEST PA LATERAL 2 VIEWS Schedule Routine, Read Routine (OP Routine) 12/06/2024 10:18 AM SEX WORKER OR ESCORT SOB (shortness of breath) PULMONARY FUNCTION TEST (PFT) Routine 12/06/2024 9:13 AM SEX WORKER OR ESCORT Chronic obstructive pulmonary disease, unspecified COPD type (HCC) ECG 12-LEAD Routine 12/02/2024 9:17 AM SEX WORKER OR ESCORT Atrial flutter, unspecified type (HCC) DEVICE CHECK - IN OFFICE Routine 12/02/2024 8:05 AM SEX WORKER OR ESCORT Sinus bradycardia Fitting or adjustment of cardiac pacemaker COMPREHENSIVE METABOLIC PANEL Routine 09/01/2024 9:30 AM SEX WORKER OR ESCORT On amiodarone therapy HEMOGLOBIN A1C Routine 10/02/2023 Type 2 diabetes mellitus with other specified complication, with long-term current use of insulin (HCC) LIPID PANEL Timed 03/03/2022 11:18 AM CDT DEXA APPENDICULAR BONE DENSITY Schedule Routine, Read Routine (OP Routine) 01/11/2019 2:40 PM CDT assistant terminal manager current use of inhaled steroid Chronic obstructive pulmonary disease, unspecified COPD type (HCC) H/O inhaled steroid therapy from Last 3 Months or Most Recently Relevant to Health Maintenance Results * (ABNORMAL) Protime-INR (01/06/2025 11:21 AM CDT) SCRIBED PT 16.9(A) 9.4 - 12.5 sec EXTERNAL LAB SCRIBED INR 1.5(A) 2.0 - 3.0 sec EXTERNAL LAB Blood 01/06/2025 11:2 1 AM CDT Lopez Pool MD LAB BLOOD ORDERABLES Final Re sult EXTERNAL LAB * (ABNORMAL) Protime-INR (01/06/2025) INR 1.50(A) 0.90 - 1.10 Blood 01/06/2025 Historical Provider LAB BLOOD ORDERABLES Shalini l Result * DEVICE CHECK - REMOTE (12/19/2024 3:31 AM SEX WORKER OR ESCORT) Anatomical Region Laterality Modality Other 12/19/2024 3:31 AM SEX WORKER OR ESCORT Narrative 12/29/2024 12:55 PM CDT Interpretation Summary: Battery and Leads (BL) Normal parameters noted on battery and lead(s) --- 1.5 years remaining (this is an estimate based on prior usage) Presenting Rhythm (WI) Atrial Fibrillation or Flutter Ventricular Sensing (VS) [...] estimate based on prior usage) Presenting Rhythm (WI) Atrial Fibrillation or Flutter Ventricular Sensing (VS) --- rate 60-100's Arrhythmic events (AE) Persistent atrial fibrillation and/or flutter Anticoagulation (AC) Patient on anticoagulant therapy Patient prescribed Warfarin (Coumadin) Transmission Information (TI) Device Summary Report us Дмитрий Torres MD [facility] CARDIAC SERVICES PROCEDURES Final Result * (ABNORMAL) Thyroid Function [place] (12/16/2024 2:57 PM SEX WORKER OR ESCORT) Free T4 1.40 0.76 - 1.46 EXTERNAL LAB TSH 7.266(A) 0.358 - 3.740 uIU/mL EXTERNAL LAB Blood 12/16/2024 2:57 PM SEX WORKER OR ESCORT us Chanel Ponce SUPPORT CLERK LAB BLOOD ORDERABLES Final Result EXTERNAL LAB * TRANSTHORACIC ECHO (TTE) COMPLETE W DOPPLER/CF WO CONTRAST (12/16/2024 7:57 AM SEX WORKER OR ESCORT) Anatomical Region Laterality Modality Ultrasound 12/16/2024 7:05 AM SEX WORKER OR ESCORT Narrative 12/16/2024 9:43 AM SEX WORKER OR ESCORT [facility] [place]iac [place] [address] [place] [address] Transthoracic Echocardiographic Report Patient Name: WALKER HILLIARD L : 1945 (79y 6m) Gender: F Study Date: 12/16/2024 07:05:11 AM Ht(Inch): 65 Wt(Lb): 244.05 BSA: 2.25 Skiver Operator: Thi Blankenship Location: [facility] Order Provider: ДМИТРИЙ TORRES Heart Rate: 81 BMI: 40.61 BP: 144 / 85 Quality: The study images were of technically adequate quality. Ref Provider: ДМИТРИЙ TORRES PROCEDURES: Echocardiographic Report: ([id number]) Transthoracic complete echo, 2D, spectral and tissue [...] By: Hema Aguilera M.D. 12/16/2024 9:42:53 AM SEX WORKER OR ESCORT Electronically Signed By: Hema Aguilera M.D. 12/16/2024 9:42:53 AM SEX WORKER OR ESCORT Procedure Note Hema Aguilera MD PhD - 12/16/2024 [facility] Card[place] [address] [place] [address] Transthoracic Echocardiographic Report Patient Name: WALKER HILLIARD L : 1945 (79y 6m) Gender: F Study Date: 12/16/2024 07:05:11 AM Ht(Inch): 65 Wt(Lb): 244.05 BSA: 2.25 Skiver Operator: Thi Blankenship Location: [facility] Order Provider: ДМИТРИЙ TORRES Heart Rate: 81 BMI: 40.61 BP: 144 / 85 Quality: The study images were oftechnically adequate quality. Ref Provider: ДМИТРИЙ TORRES PROCEDURES: Echocardiographic Report: ([id number]) Transthoracic complete echo, 2D,spectral and tissue Doppler, [...] LA Length 4C 5.63 cm MV Decel Lypu310.61 msec [ 104.00 - 258.00 ] LA [...] By: Hema Aguilera M.D. 12/16/2024 9:42:53 AM SEX WORKER OR ESCORT Electronically Signed By: Hema Aguilera M.D. 12/16/2024 9:42:53 AM SEX WORKER OR ESCORT Дмитрий Torres MD CV ECHO PROCEDURES Final Resul t * (ABNORMAL) Protime-INR (12/16/2024) INR 1.90(A) 0.90 - 1.10 Blood 12/16/2024 Historical Provider LAB BLOOD ORDERABLES Shalini l Result * (ABNORMAL) Protime-INR (12/09/2024) Pathologist [facility] INR 2.50(A) 0.90 - 1.10 Blood 12/09/2024 Historical Provider LAB BLOOD ORDERABLES Shalini l Result * XR Chest Pa Lateral 2 Views (12/06/2024 10:18 AM SEX WORKER OR ESCORT) Anatomical Region Laterality Modality Body, Chest N/A Computed Radiogr aphy 12/06/2024 10:5 3 AM SEX WORKER OR ESCORT Impressions 12/06/2024 11:52 AM SEX WORKER OR ESCORT Dual-lead pacemaker is seen in unchanged position [...] Mitul Howe M.D. Narrative 12/06/2024 11:52 AM SEX WORKER OR ESCORT EXAMINATION: XR CHEST PA LATERAL 2 VIEWS [...] Pulmonary Function Test - (12/06/2024 9:13 AM SEX WORKER OR ESCORT) FVC PRE 1.74 L [facility] FVC %PRE PRED 66 % [facility] FEV1 PRE 1.06 L [facility] FEV1 %PRE PRED 53 % [facility] FEV1/FVC PRE 61.0 % [facility] Anatomical Region Laterality Modality PFT 12/06/2024 8:59 AM SEX WORKER OR ESCORT Narrative 12/08/2024 10:52 AM SEX WORKER OR ESCORT PFT performed at:->[facility] Adult PFT Lab- [facility] Procedure:->Spirometry Pulmonary [...] and %HbO2 is age dependent. However, the [facility] Pulmonary Function Laboratory defines hypoxemia as a PaO2 <56 mm Hg or a %HbO2 <89%. Starting on October of 2024 the [facility] Pulmonary Function Laboratory utilizes race neutral GLI Global normative equations. Maurilio Horner MD PFT ORDERABLES F inal Result * ECG 12 lead (12/02/2024 9:17 AM SEX WORKER OR ESCORT) us Дмитрий Torres MD ECG ORDERABLES Edited Result - Final * DEVICE CHECK - IN OFFICE (12/02/2024 8:05 AM SEX WORKER OR ESCORT) Anatomical Region Laterality Modality Other 12/02/2024 2:00 AM SEX WORKER OR ESCORT Narrative 12/08/2024 10:47 AM SEX WORKER OR ESCORT Interpretation Summary: Battery and Leads (BL) Normal parameters noted on battery and lead(s) Presenting Rhythm (WI) Ventricular Sensing (VS) Atrial Fibrillation or Flutter Ventricular Pacing (MACHINE ETCHER) Arrhythmic events (AE) No new arrhythmic events in monitoring period Anticoagulation (AC) Patient on anticoagulant therapy Patient prescribed Warfarin (Coumadin) Procedure Note Дмитрий Torres MD - 12/08/2024 Interpretation Summary: Battery and Leads (BL) Normal parameters noted on battery and lead(s) Presenting Rhythm (WI) Ventricular Sensing (VS) Atrial Fibrillation or Flutter Ventricular Pacing (MACHINE ETCHER) Arrhythmic events (AE) No new arrhythmic events in monitoring period Anticoagulation (AC) Patient on anticoagulant therapy Patient prescribed Warfarin (Coumadin) us Дмитрий Torres MD [facility] CARDIAC SERVICES PROCEDURES Final Result * (ABNORMAL) Comprehensive metabolic panel (09/01/2024 9:30 AM SEX WORKER OR ESCORT) SCRIBED Sodium 141 136 - 145 mmol/L [...] NO LAB FOUND Blood 09/01/2024 9:30 AM SEX WORKER OR ESCORT us Дмитрий Torres MD LAB BLOOD ORDERABLES Final Res ult TXP NO LAB FOUND * Hemoglobin A1c (10/02/2023) Blood us Colleen Bain MD LAB BLOOD ORDERABLES Final Result Performing Organization Address City/[facility] Co de Phone Number EXTERNAL LAB * (ABNORMAL) Lipid panel (03/03/2022 11:18 AM CDT) Cholesterol 108 30 - 199 mg/dL [facility] Comment: Interpretive Data Ages < or [...] revised on 2018. Triglycerides 222(H) <=149 mg/dL [facility] Comment: Interpretive Data Ages < or [...] revised on 2018. HDL 31(L) >=40 mg/dL [facility] Comment: Interpretive Data Ages < or [...] on 2018. LDL, calculated 33 <=129 mg/dL [facility] Comment: Interpretive Data Ages < or [...] on 2018. Non-HDL Cholesterol 77 mg/dL [facility] Comment: Interpretive Data Ages < or [...] revised on 2018. Chol/HDL ratio 3 [facility] Blood 03/03/2022 11:1 8 AM CDT 03/03/2022 12:31 PM CDT us Kal Ross Mccray MD PhD LAB BLOOD ORDERABLES Shalini olivier Result [facility] Department [place] [address] * Dexa Bone Density (01/11/2019 2:40 PM CDT) Anatomical Region Laterality Modality Wrist N/A Radiographic Zeinab ging Narrative 01/13/2019 2:57 PM CDT Patient Name: Walker Hilliard Date of : 1945 Date of scan: 01/11/2019 Bone mineral density was performed on a [employer] Discovery Densitometer. Machine Cross-calibration and Precision studies [...] by the International Society of Clinical Densitometry. [id number] Berlin Escobar MD IMG DXA PROCEDURES Final Resul t from Last 3 Months or Most Recently Relevant to Health Maintenance Insurance MEDICARE [facility] MEDICARE SUPPLEMENT Member Subscriber Plan / Payer (Ef fective 2019-Present) Name:Walker Hilliard Relation to Subscriber:Self Name:Walker Hilliard Payer ID:[id number] Group ID:[id number] Type:COMMERCIAL Address: [address] MEDICARE PHYSICIANS [facility] MEDICARE [facility] MEDICARE SUPPLEMENT Advance Directives For more information, please contact: [phone] * LIMITED - No CPR (Latest Code [...] 11:23 AM 03/18/2019 5:50 PM Care Teams Greenskeeper Laborer Relationship Specialty Start Date End Date Lopez Pool MD PCP - General Family Medicine 03/18/22 Hema Castaneda MD Consulting Physician Cardiology 01/11/19 Colleen Bain MD Referring Physician Endocrinology Diabetes & Metabolism 04/07/19 Дмитрий Torres MD Referring Physician Cardiology 04/07/19 Jacqueline Schaeffer fingerer Failure Coordinator Cardiology 07/13/24 Anat Hutchison 07/13/24
--- OUTSIDE RECORDS SUMMARY | 2025-01-10 18:37 | XMS_ITS | Encounter Summary ---
Author Organization [facility] Address [address] [place] [address] Care Team Providers Care Occupational Ther Name Role Phone Elmer Wallace MD Primary Care Provider [phone] Lopez Pool MD Primary Care Provider [phone] Lopze Pool MD Unavailable [phone] Encounter Details Date Type Department Care Team (Late st Contact Info) Description 01/02/2018 Abstract [facility] CONVERSION [address] [place] [address] , Generic Conversion, Social History Tobacco Use Types Packs/Day Years Used Date Smoking Tobacco: Never Assessed Comments Unknown Sex and Gender Information Value Date Recorded Sex Assigned at Female 11/01/2024 8:23 AM TRANSMISSION OPERATOR Legal Sex Female 10:48 PM TRANSMISSION OPERATOR Gender Identity Not on file Sexual Orientation Not on file documented as of this encounter Plan of Treatment Upcoming Encounters Date Type Department Care Team (Late st Contact Info) Description 02/07/2025 8:16 AM CDT Hospital En[facility] [place] [address] [place] [address] [place] [address] [place] [address] 02/07/2025 8:16 AM CDT - 02/07/2025 8:46 AM CDT Surgery [facility] [address] [place] [address] [place] [address] [place] [phone] CYSTOSCOPY Scheduled Procedures Name Priority Associated Diagnoses [...] Rule Out 10/06/2021 10/06/2021 10/06/2021 8:43 PM TRANSMISSION OPERATOR COVID-19 Rule Out 02/14/2022 02/14/2022 02/14/2022 8:59 AM CDT COVID-19 Rule Out 02/22/2022 02/22/2022 02/22/2022 2:34 AM CDT COVID-19 Rule Out 02/22/2022 02/22/2022 02/23/2022 11:16 AM CDT COVID-19 Rule Out 06/02/2022 06/02/2022 06/02/2022 9:32 PM CDT COVID-19 Confirmed 06/02/2022 06/02/2022 12:32 AM CDT COVID-19 Rule Out 09/03/2022 09/03/2022 09/03/2022 3:29 PM TRANSMISSION OPERATOR COVID-19 Rule Out 10/25/2023 10/25/2023 10/25/2023 2:09 PM TRANSMISSION OPERATOR documented as of this encounter Care Teams Occupational Ther Relationship Specialty Start Date End Date Elmer Wallace MD [address] [place] [address] PCP - General FAMILY PRACTICE 06/14/19 03/20/22 Lopez Pool MD [address] [place] [address] PCP - General FAMILY PRACTICE 03/21/22 Lopez Pool MD [address] [place] [address] [address] FAMILY PRACTICE 03/21/22 documented as of this encounter
--- OUTSIDE RECORDS SUMMARY | 2025-01-10 18:37 | XMS_ITS | Encounter Summary ---
Author Organization [facility] Healthcare Address [address] [place] [address] Care Team Providers Care Intelligence Consultant Name Role Phone Elmer Wallace MD Primary Care Provider Hema Castaneda MD Unavailable [phone] Colleen Bain MD Unavailable [phone] Rosette Espinoza MD Unavailable [phone] Jenni Hartley RN Unavailable Unavailable Meenu Jones NP Unavailable [phone] Lopez Pool MD Primary Care Provider [phone] Jacqueline Schaeffer RN Unavailable Unavailable Jenni Hartley RN Unavailable Unavailable Anat Hutchison Unavailable Unavailable Encounter Details Date Type Department Care Team (Late st Contact Info) Description 10/20/2019 Telephone [facility] Trans[facility] Heart [address] [facility] [address] Mailstop [phone] [place] [address] Genesis Brito Social History Tobacco Use Types Packs/Day Years Used Date Smoking Tobacco: Former Cigarettes Q uit: 2006 Smokeless Tobacco: Never Alcohol Use Standard Drinks/Week Comments No 0 (1 standard drink = 0.6 oz pur e alcohol) minimal Comments Unknown Sex and Gender Information Value Date Recorded Sex Assigned at Not on file Legal Sex Female 3:00 AM BOAT BUILDER AND REPAIRER Gender Identity Female 07/13/2018 9:28 AM CDT Sexual Orientation Not on file 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 [address] [place], [place] [phone] Atrial fibrillation, unspecified type (HCC) 02/10/2025 7:30 AM CDT - 02/10/2025 8:05 AM CDT Surgery [facility] [address] [phone] Patricia Smith MD [address] [facility] [address] [place], [place] [phone] CARDIOVERSION documented as of this encounter Visit Diagnoses Not on filedocumented in this encounter Additional Health Concerns Infection Onset Date Last Indicated Resolved Time COVID: Suspected 03/13/2022 03/13/2022 03/13/2022 6:26 PM CDT documented as of this encounter Care Teams Intelligence Consultant Relationship Specialty Start Date End Date Elmer Wallace MD PCP - General 02/09/17 03/17/22 Lopez Pool MD PCP - General Family Medicine 03/18/22 Hema Castaneda MD Consulting Physician Cardiology 01/11/19 Colleen Bain MD Referring Physician Endocrinology Diabetes & Metabolism 04/07/19 Rosette Espinoza MD Referring Physician Cardiology 04/07/19 Jenni Hartley, RN Registered Nurse Cardiology 04/02/21 04/22/21 Meenu Jones NP Chili Powder Mixer Cardiology 04/02/21 04/22/21 Jacqueline Schaeffer, chemical compounder Failure Coordinator Cardiology 07/13/24 Jenni Hartley, RN Registered Nurse 07/13/24 08/01/24 Anat Hutchison 07/13/24 documented as of this encounter
--- OUTSIDE RECORDS SUMMARY | 2025-01-10 18:37 | XMS_ITS | Encounter Summary ---
Author Organization [facility] Address [address] [place] [address] Care Team Providers Care Loose Hand Packer Name Role Phone Elmer Wallace MD Primary Care Provider [phone] Lopez Pool MD Primary Care Provider [phone] Lopez Pool MD Unavailable [phone] Reason for Referral * Surgical (Routine) - Closed Specialty Diagnoses / Procedures Referred By Amanda asher Referred To Contact Diagnoses Z85.51 Procedures Case request operating room: CYSTOSCOPY Lorin Contreras III, MD Phone: tel: fax: Referral ID Status Reason Start Date Expiration Date Visits Re quested Visits Authorized [id number] Closed 04/04/2020 05/04/2021 1 1 Encounter Details Date Type Department Care Team (Late st Contact Info) Description 04/04/2020 Prep for Procedure [facility] [address] [facility] [address] [address] [place] [address] [place] [phone] Social History Tobacco Use Types Packs/Day Years [...] Sex Assigned at Female 11/01/2024 8:23 AM CONSUMER ADVOCATE Legal Sex Female 10:48 PM CONSUMER ADVOCATE Gender Identity Not on file Sexual Orientation [...] Description 02/07/2025 8:16 AM CDT Hospital Encounter [facility] [place] [address] [place], [place] [address] [address] [place] [address] [place] [phone] 02/07/2025 8:16 AM CDT - 02/07/2025 8:46 AM CDT Surgery [facility] Count includes the [facility] [place] [address] [address] [place] [address] [place] [phone] CYSTOSCOPY Scheduled Orders Name Type Priority Associated [...] Rule Out 10/06/2021 10/06/2021 10/06/2021 8:43 PM CONSUMER ADVOCATE COVID-19 Rule Out 02/14/2022 02/14/2022 02/14/2022 8:59 AM CDT COVID-19 Rule Out 02/22/2022 02/22/2022 02/22/2022 2:34 AM CDT COVID-19 Rule Out 02/22/2022 02/22/2022 02/23/2022 11:16 AM CDT COVID-19 Rule Out 06/02/2022 06/02/2022 06/02/2022 9:32 PM CDT COVID-19 Confirmed 06/02/2022 06/02/2022 12:32 AM CDT COVID-19 Rule Out 09/03/2022 09/03/2022 09/03/2022 3:29 PM CONSUMER ADVOCATE COVID-19 Rule Out 10/25/2023 10/25/2023 10/25/2023 2:09 PM CONSUMER ADVOCATE documented as of this encounter Care Teams Loose Hand Packer Relationship Specialty Start Date End Date Elmer Wallace MD [address] [place] [phone] PCP - General FAMILY PRACTICE 06/14/19 03/20/22 Lopez Pool MD [address] [place] [address] PCP - General FAMILY PRACTICE 03/21/22 Lopez Pool MD [address] [place] [address] FAMILY PRACTICE 03/21/22 documented as of this encounter
--- OUTSIDE RECORDS SUMMARY | 2025-01-10 18:37 | XMS_ITS | Encounter Summary ---
Author Organization [facility] Address [address] [place] [address] Phone Care Team Providers Care Computer Information Science Professor Name Role Phone Hema Castaneda MD Unavailable [phone] Colleen Bain MD Unavailable [phone] Rosette Espinoza MD Unavailable [phone] Lopez Pool MD Primary Care Provider [phone] Jacqueline Schaeffer RN Unavailable Unavailable Anat Hutchison Unavailable Unavailable Encounter Details Date Type Department Care Team (Late st Contact Info) Description 12/16/2024 Results Follow-Up [facility] Cardiology [address] [facility] [address] [place] [address] Rosette Espinoza MD [address] [address] Social History Tobacco Use Types Packs/Day Years [...] often do you attend chur ch or hoahaoism services? Never 03/14/2022 Do you belong to any clubs o r organizations such as yazidi groups, unions, fraternal or athletic groups, or [...] place to sleep or slept in a alf (including now)? No 03/14/2022 Personal Safety Answer Date Recorded Have you ever been in or are you currently in a harmful physical or emotional relationship or is someone making you feel afraid or unsafe? 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 [address] [place] [phone] Fred SullivanPower Switchboard Operator, [address] [place], [place] [phone] Patricia Smith MD [address] [address] Atrial fibrillation, unspecified type (HCC) 02/10/2025 7:30 AM CDT - 02/10/2025 8:[address] [facility] [address] [address] Patricia Smith MD [address] [address] CARDIOVERSION documented as of this encounter Visit Diagnoses Not on filedocumented in this encounter Care Teams Computer Information Science Professor Relationship Specialty Start Date End Date Lopez Pool MD PCP - General Family Medicine 03/18/22 Hema Castaneda MD Consulting Physician Cardiology 01/11/19 Colleen Bain MD Referring Physician Endocrinology Diabetes & Metabolism 04/07/19 Rosette Espinoza MD Referring Physician Cardiology 04/07/19 Jacqueline Schaeffer, wildlife conservation officer Failure Coordinator Cardiology 07/13/24 Anat Hutchison 07/13/24 documented as of this encounter
--- OUTSIDE RECORDS SUMMARY | 2025-01-10 18:37 | XMS_ITS | Encounter Summary ---
Author Organization [facility] Address [facility] [place] [address] Care Team Providers Care Occupational Therapist Rehab Manager Name Role Phone Lopez Pool MD Primary Care Provider [phone] Lopez Pool MD Unavailable [phone] Reason for Visit * Reason Onset Date Comments Follow Up Call 06/17/2024 [facility] 06/17-06/19/24 Encounter Details Date Type Department Care Team (Latest Contact Info) Description 06/22/2024 Hospital Follow-up Call [facility] Care Management [address] [place] [address] [place] [address] Brenda Weaver LPN Follow Up [...] materials from doctor or pharmacy Never 12/30/2023 [facility] Utilities Answer Date Recorded In the [...] week 02/22/2022 How often do you attend [facility] or sabianist services? 1 to 4 times per year 02/22/2022 Do you belong to any clubs o r organizations such as religious groups, unions, fraternal or athletic groups, or [...] move on to questions 3-9 0 02/22/2022 [facility] - Occup[facility] Stress [...] place to sleep or slept in a prison (including now)? No 10/25/2023 Housing Stability Vital Sign Answer Sebas e Recorded In the last 12 months, was t here a time when you were not able to pay the mortgage or rent on time? No 06/18/2024 In the past 12 months, how m any times have you moved where you were living? 1 06/18/2024 At any time in the past 12 m [facility], were you homeless or living in a prison (including now)? No 06/18/2024 Comments No Sex and Gender Information Value Date Recorded Sex Assigned at Female 11/01/2024 8:23 AM CONTRACT RUNNER Legal Sex Female 10:48 PM CONTRACT RUNNER Gender Identity Not on file Sexual Orientation [...] Description 02/07/2025 8:16 AM CDT Hospital Encounter [place] [address] [place], [place] [address] [place] [address] [place] [address] [place] [phone] 02/07/2025 8:16 AM CDT - 02/07/2025 8:46 AM CDT Surgery [place] [address] [place] [address] [place] [address] [place] [phone] CYSTOSCOPY Scheduled Procedures Name Priority Associated Diagnoses Date/Ti ks CYSTOSCOPY 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 Author Safety Patient/family will have appropriate support at home upon discharge General No Priscila Díaz, ALTERATIONS TAILOR documented as of this encounter Visit Diagnoses Not on filedocumented in this encounter Additional Health Concerns Assessment Noted Time PHQ-9 Depression Total Score: 0 02/23/20 5:14 AM CDT documented as of this encounter Care Teams Occupational Therapist Rehab Manager Relationship Specialty Start Date End Date Lopez Pool MD [address] [place] [phone] PCP - General FAMILY PRACTICE 03/21/22 Lopez Pool MD [address] [place] [phone] FAMILY PRACTICE 03/21/22 documented as of this encounter
--- OUTSIDE RECORDS SUMMARY | 2025-01-10 18:37 | XMS_ITS | Encounter Summary ---
Author Organization [facility] Address [address] [place] [address] Phone Care Team Providers Care Actionscript Developer Name Role Phone Elmer Wallace MD Primary Care Provider Hema Castaneda MD Unavailable [phone] Colleen Bain MD Unavailable [phone] Rosette Espinoza MD Unavailable [phone] Jenni Hartley RN Unavailable Unavailable Meenu Jones NP Unavailable [phone] Lopez Pool MD Primary Care Provider [phone] Jacqueline Schaeffer RN Unavailable Unavailable Jenni Hartley RN Unavailable Unavailable Anat Hutchison Unavailable Unavailable Encounter Details Date Type Department Care Team (Late st Contact Info) Description 12/24/2017 Orders Only [facility]IN[facility] ProviderLexi MD [address] [place] [address] Social History Tobacco Use Types Packs/Day Years Used Date Smoking Tobacco: Former Comments Unknown Sex and Gender Information Value Date Recorded Sex Assigned at Not on file Legal Sex Female 3:00 AM POTTERY DECORATOR Gender Identity Female 07/13/2018 9:28 AM CDT Sexual Orientation Not on file documented as of this encounter Plan of Treatment Upcoming Encounters Date Type Department Care Team (Latest Contact Info) Description 02/10/2025 7:30 AM CDT Hospital Encounter [facility] [address] [place] [phone] Nate, Fence Repairman, [address] [place] [address] Patricia Smith MD [address] [facility] [address] [place] [address] Atrial fibrillation, unspecified type (HCC) 02/10/2025 7:30 AM CDT - 02/10/2025 8:05 AM CDT Surgery [facility] [address] [place] [address] Patricia Smith MD [address] [facility] [address] [place], [place] [phone] CARDIOVERSION documented as of this encounter Procedures [...] 12/24/2017 Ordered by an unspecified provider. Result [facility] Provider CV CARDIAC SERVICES PROCE DURES Final Result * CARDIOLOGY REPORT (12/24/2017) Anatomical Region Laterality Modality Other Narrative 12/24/2017 Ordered by an unspecified provider. Result [facility] Provider CV CARDIAC SERVICES PROCE DURES Final Result * CARDIOLOGY REPORT (12/24/2017) Anatomical Region Laterality Modality Other Narrative 12/24/2017 Ordered by an unspecified provider. Result [facility] Provider CV CARDIAC SERVICES PROCE DURES Final Result * CARDIOLOGY REPORT (12/24/2017) Anatomical Region Laterality Modality Other Narrative 12/24/2017 Ordered by an unspecified provider. Result [facility] Provider CV CARDIAC SERVICES PROCE DURES Final Result * CARDIOLOGY REPORT (12/24/2017) Anatomical Region Laterality Modality Other Narrative 12/24/2017 Ordered by an unspecified provider. Result [facility] Provider CV CARDIAC SERVICES PROCE DURES Final Result * CARDIOLOGY REPORT (12/24/2017) Anatomical Region Laterality Modality Other Narrative 12/24/2017 Ordered by an unspecified provider. Result [facility] Provider CV CARDIAC SERVICES PROCE DURES Final Result * CARDIOLOGY REPORT (12/24/2017) Anatomical Region Laterality Modality Other Narrative 12/24/2017 Ordered by an unspecified provider. Result [facility] Provider CV CARDIAC SERVICES PROCE DURES Final Result * CARDIOLOGY REPORT (12/24/2017) Anatomical Region Laterality Modality Other Narrative 12/24/2017 Ordered by an unspecified provider. Result [facility] Provider CV CARDIAC SERVICES PROCE DURES Final Result * CARDIOLOGY REPORT (12/24/2017) Anatomical Region Laterality Modality Other Narrative 12/24/2017 Ordered by an unspecified provider. [facility] Provider CV CARDIAC SERVICES PROCE DURES Final Result * CARDIOLOGY REPORT (12/24/2017) Anatomical Region Laterality Modality Other Narrative 12/24/2017 Ordered by an unspecified provider. [facility] Provider CV CARDIAC SERVICES PROCE DURES Final Result * CARDIOLOGY REPORT (12/24/2017) Anatomical Region Laterality Modality Other Narrative 12/24/2017 Ordered by an unspecified provider. [facility] Provider CV CARDIAC SERVICES PROCE DURES Final Result * CARDIOLOGY REPORT (12/24/2017) Anatomical Region Laterality Modality Other Narrative 12/24/2017 Ordered by an unspecified provider. [facility] Provider CV CARDIAC SERVICES PROCE DURES Final Result * CARDIOLOGY REPORT (12/24/2017) Anatomical Region Laterality Modality Other Narrative 12/24/2017 Ordered by an unspecified provider. [facility] Provider CV CARDIAC SERVICES PROCE DURES Final Result * CARDIOLOGY REPORT (12/24/2017) Anatomical Region Laterality Modality Other Narrative 12/24/2017 Ordered by an unspecified provider. Result [facility] Provider CV CARDIAC SERVICES PROCE DURES Final Result documented in this encounter Visit Diagnoses Not on filedocumented in this encounter Additional Health Concerns Infection Onset Date Last Indicated Resolved Time COVID: Suspected 03/13/2022 03/13/2022 03/13/2022 6:26 PM CDT documented as of this encounter Care Teams Actionscript Developer Relationship Specialty Start Date End Date Elmer Wallace MD PCP - General 02/09/17 03/17/22 Lopez Pool MD PCP - General Family Medicine 03/18/22 Hema Castaneda MD Consulting Physician Cardiology 01/11/19 Colleen Bain MD Referring Physician Endocrinology Diabetes & Metabolism 04/07/19 Rosette Espinoza MD Referring Physician Cardiology 04/07/19 Jenni Hartley, RN Registered Nurse Cardiology 04/02/21 04/22/21 Meenu Jones NP Missile Control Pilot Cardiology 04/02/21 04/22/21 Jacqueline Schaeffer, laborer concrete paving Failure Coordinator Cardiology 07/13/24 Jenni Hartley, RN Registered Nurse 07/13/24 08/01/24 Anat Hutchison 07/13/24 documented as of this encounter
--- OUTSIDE RECORDS SUMMARY | 2025-01-10 18:37 | XMS_ITS | Encounter Summary ---
Author Organization [facility] Address [address] [place] [address] Phone Care Team Providers Care Digital Ad Trafficker Name Role Phone Elmer Wallace MD Primary Care Provider Hema Castaneda MD Unavailable [phone] Colleen Bani MD Unavailable [phone] Rosette Espinoza MD Unavailable [phone] Jenni Hartley RN Unavailable Unavailable Meenu Jones NP Unavailable [phone] Lopez Pool MD Primary Care Provider [phone] Jacqueline Schaeffer RN Unavailable Unavailable Jenni Hartley RN Unavailable Unavailable Anat Hutchison Unavailable Unavailable Encounter Details Date Type Department Care Team (Late st Contact Info) Description 01/05/2018 Orders Only [facility] CAR CLINCONV ProviderLexi MD [address] [place] [address] Social History Tobacco Use Types Packs/Day Years Used Date Smoking Tobacco: Former Comments Unknown Sex and Gender Information Value Date Recorded Sex Assigned at Not on file Legal Sex Female 3:00 AM SOLDERER Gender Identity Female 07/13/2018 9:28 AM CDT Sexual Orientation Not on file documented as of this encounter Plan of Treatment Upcoming Encounters Date Type Department Care Team (Latest Contact Info) Description 02/10/2025 7:30 AM CDT Hospital Encounter [facility] 1 [place] [phone] Nate, Farm Operations Technical Director, [address] [place] [address] Patricia Smith MD [address] [place] [address] Atrial fibrillation, unspecified type (HCC) 02/10/2025 7:30 AM CDT - 02/10/2025 8:05 AM CDT Surgery [facility] [place] 1 [place] [phone] Patricia Smith MD [address] [place], [place] [id number] CARDIOVERSION documented as of this encounter Procedures [...] Narrative 01/05/2018 Ordered by an unspecified provider. [facility] Provider CV CARDIAC SERVICES PROCE DURES Final Result * CARDIOLOGY REPORT (01/05/2018) Anatomical Region Laterality Modality Other Narrative 01/05/2018 Ordered by an unspecified provider. Result [facility] Provider CV CARDIAC SERVICES PROCE DURES Final Result * CARDIOLOGY REPORT (01/05/2018) Anatomical Region Laterality Modality Other Narrative 01/05/2018 Ordered by an unspecified provider. Result [facility] Provider CV CARDIAC SERVICES PROCE DURES Final Result * CARDIOLOGY REPORT (01/05/2018) Anatomical Region Laterality Modality Other Narrative 01/05/2018 Ordered by an unspecified provider. Result [facility] Provider CV CARDIAC SERVICES PROCE DURES Final Result * CARDIOLOGY REPORT (01/05/2018) Anatomical Region Laterality Modality Other Narrative 01/05/2018 Ordered by an unspecified provider. Result [facility] Provider CV CARDIAC SERVICES PROCE DURES Final Result * CARDIOLOGY REPORT (01/05/2018) Anatomical Region Laterality Modality Other Narrative 01/05/2018 Ordered by an unspecified provider. Result [facility] Provider CV CARDIAC SERVICES PROCE DURES Final Result * CARDIOLOGY REPORT (01/05/2018) Anatomical Region Laterality Modality Other Narrative 01/05/2018 Ordered by an unspecified provider. Result [facility] Provider CV CARDIAC SERVICES PROCE DURES Final Result * CARDIOLOGY REPORT (01/05/2018) Anatomical Region Laterality Modality Other Narrative 01/05/2018 Ordered by an unspecified provider. Result [facility] Provider CV CARDIAC SERVICES PROCE DURES Final Result documented in this encounter Visit Diagnoses Not on filedocumented in this encounter Additional Health Concerns Infection Onset Date Last Indicated Resolved Time COVID: Suspected 03/13/2022 03/13/2022 03/13/2022 6:26 PM CDT documented as of this encounter Care Teams Digital Ad Trafficker Relationship Specialty Start Date End Date Elmer Wallace MD PCP - General 02/09/17 03/17/22 Lopez Pool MD PCP - General Family Medicine 03/18/22 Hema Castaneda MD Consulting Physician Cardiology 01/11/19 Colleen Bain MD Referring Physician Endocrinology Diabetes & Metabolism 04/07/19 Rosette Espinoza MD Referring Physician Cardiology 04/07/19 Jenni Hartley, RN Registered Nurse Cardiology 04/02/21 04/22/21 Meenu Jones NP Grocery Packer Cardiology 04/02/21 04/22/21 Jacqueline Schaeffer, undercollar maker Failure Coordinator Cardiology 07/13/24 Jenni Hartley, RN Registered Nurse 07/13/24 08/01/24 Anat Hutchison 07/13/24 documented as of this encounter
--- OUTSIDE RECORDS SUMMARY | 2025-01-10 18:37 | XMS_ITS | Encounter Summary ---
Author Organization [facility] Address [address] [place] [address] Phone Care Team Providers Care Scrap Bunch Maker Name Role Phone Elmer Wallace MD Primary Care Provider Hema Castaneda MD Unavailable [phone] Colleen Bain MD Unavailable [phone] Rosette Espinoza MD Unavailable [phone] Jenni Hartley RN Unavailable Unavailable Meenu Jones NP Unavailable [phone] Lopez Pool MD Primary Care Provider [phone] Jacqueline Schaeffer RN Unavailable Unavailable Jenni Hartley [...] on file 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 Gender Identity Female 07/13/2018 9:28 AM CDT Sexual Orientation Not on file 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 Not on file Not on file documented as of this encounter Plan of Treatment Upcoming Encounters Date Type Department Care Team (Latest Contact Info) Description 02/10/2025 7:30 AM CDT Hospital Encounter [facility] [place] 1 [place] [address] Fred SullivanPatient Registration Supervisor, [address] [place] [address] Patricia Smith MD [address] [facility] [address] [place], [place] [phone] Atrial fibrillation, unspecified type (HCC) 02/10/2025 7:30 AM CDT - 02/10/2025 8:05 AM CDT Surgery [facility] [address] [phone] Patricia Smith MD [address] [facility] [address] [place] [id number] CARDIOVERSION documented as of this encounter Procedures [...] documented as of this encounter Care Teams Scrap Bunch Maker Relationship Specialty Start Date End Date Elmer Wallace MD PCP - General 02/09/17 03/17/22 Lopez Pool MD PCP - General Family Medicine 03/18/22 Hema Castaneda MD Consulting Physician Cardiology 01/11/19 Colleen Bain MD Referring Physician Endocrinology Diabetes & Metabolism 04/07/19 Rosette Espinoza MD Referring Physician Cardiology 04/07/19 Jenni Hartley, RN Registered Nurse Cardiology 04/02/21 04/22/21 Meenu Jones NP Performance Consultant Cardiology 04/02/21 04/22/21 Jacqueline Schaeffer, patient accounting representative Failure Coordinator Cardiology 07/13/24 Jenni Hartley, RN Registered Nurse 07/13/24 08/01/24 Anat Hutchison 07/13/24 documented as of this encounter
--- OUTSIDE RECORDS SUMMARY | 2025-01-10 18:37 | XMS_ITS | Encounter Summary ---
Author Organization [facility] Address [address] [place] [address] Phone Care Team Providers Care Cotton Opener Name Role Phone Elmer Wallace MD Primary Care Provider Hema Castaneda MD Unavailable [phone] Colleen Bain MD Unavailable [phone] Rosette Espinoza MD Unavailable [phone] Jenni Hartley RN Unavailable Unavailable Meenu Jones NP Unavailable [phone] Lopez Pool MD Primary Care Provider Jacqueline Schaeffer RN Unavailable Unavailable Jenni Hartley RN Unavailable Unavailable Anat Hutchison Unavailable Unavailable Encounter Details Date Type Department Care Team (Late st Contact Info) Description 01/14/2018 Orders Only [facility] CAR CLINCONV ProviderLexi MD [address] [place] [address] Social History Tobacco Use Types Packs/Day Years Used Date Smoking Tobacco: Former Comments Unknown Sex and Gender Information Value Date Recorded Sex Assigned at Not on file 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 Gender Identity Female 07/13/2018 9:28 AM CDT Sexual Orientation Not on file documented as of this encounter Plan of Treatment Upcoming Encounters Date Type Department Care Team (Latest Contact Info) Description 02/10/2025 7:30 AM CDT Hospital Encounter [facility] 1 [place] [phone] Nate, Principal Engineer, [address] [place] [address] Patricia Smith MD [address] [facility] [facility] [address] [address] [place] [address] Atrial fibrillation, unspecified type (HCC) 02/10/2025 7:30 AM CDT - 02/10/2025 8:05 AM CDT Surgery [facility] 1 [place] [phone] Patricia Smith MD [address] [facility] [address] [place], [place] [id number] CARDIOVERSION documented as of this encounter Procedures [...] Narrative 01/14/2018 Ordered by an unspecified provider. [facility] Provider CV CARDIAC SERVICES PROCE DURES Final Result * CARDIOLOGY REPORT (01/14/2018) Anatomical Region Laterality Modality Other Narrative 01/14/2018 Ordered by an unspecified provider. [facility] Provider CV CARDIAC SERVICES PROCE DURES Final Result * CARDIOLOGY REPORT (01/14/2018) Anatomical Region Laterality Modality Other Narrative 01/14/2018 Ordered by an unspecified provider. [facility] Provider CV CARDIAC SERVICES PROCE DURES Final Result * CARDIOLOGY REPORT (01/14/2018) Anatomical Region Laterality Modality Other Narrative 01/14/2018 Ordered by an unspecified provider. [facility] Provider CV CARDIAC SERVICES PROCE DURES Final Result * CARDIOLOGY REPORT (01/14/2018) Anatomical Region Laterality Modality Other Narrative 01/14/2018 Ordered by an unspecified provider. [facility] Provider CV CARDIAC SERVICES PROCE DURES Final Result * CARDIOLOGY REPORT (01/14/2018) Anatomical Region Laterality Modality Other Narrative 01/14/2018 Ordered by an unspecified provider. [facility] Provider CV CARDIAC SERVICES PROCE DURES Final Result documented in this encounter Visit Diagnoses Not on filedocumented in this encounter Additional Health Concerns Infection Onset Date Last Indicated Resolved Time COVID: Suspected 03/13/2022 03/13/2022 03/13/2022 6:26 PM CDT documented as of this encounter Care Teams Cotton Opener Relationship Specialty Start Date End Date Elmer Wallace MD PCP - General 02/09/17 03/17/22 Lopez Pool MD PCP - General Family Medicine 03/18/22 Hema Castaneda MD Consulting Physician Cardiology 01/11/19 Colleen Bain MD Referring Physician Endocrinology Diabetes & Metabolism 04/07/19 Rosette Espinoza MD Referring Physician Cardiology 04/07/19 Jenni Hartley, RN Registered Nurse Cardiology 04/02/21 04/22/21 Meenu Jones NP Lozenge Maker Helper Cardiology 04/02/21 04/22/21 Jacqueline Schaeffer, home connect lpn Failure Coordinator Cardiology 07/13/24 Jenni Hartley, RN Registered Nurse 07/13/24 08/01/24 Anat Hutchison 07/13/24 documented as of this encounter
--- OUTSIDE RECORDS SUMMARY | 2025-01-10 18:37 | XMS_ITS | Encounter Summary ---
Author Organization [facility] Address [address] [place] [address] Care Team Providers Care Petroleum Inspector Supervisor Name Role Phone Hema Castaneda MD Unavailable [phone] Colleen Bain MD Unavailable [phone] Rosette Espinoza MD Unavailable [phone] Lopez Pool MD Primary Care Provider [phone] Jacqueline Schaeffer RN Unavailable Unavailable Jenni Hartley RN Unavailable Unavailable Anat Hutchison Unavailable Unavailable Encounter Details Date Type Department Care Team (Late st Contact Info) Description 03/18/2022 Documentation [facility] Case Management 1 [place] [address] Myla Gomez RN Social History Tobacco Use [...] week 03/14/2022 How often do you attend [facility] or [facility] services? Never 03/14/2022 Do you belong to any clubs o r organizations such as voodoo groups, unions, fraternal or athletic groups, or [...] place to sleep or slept in a residential (including now)? 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 Gender Identity Female 07/13/2018 9:28 AM CDT [...] 02/10/2025 7:30 AM CDT Hospital Encounter [facility] [address] [place] [phone] Nate, Cottage Parent, [address] [place], [place] [phone] Patricia Smith MD [address] [id number] Atrial fibrillation, unspecified type (HCC) 02/10/2025 7:30 AM CDT - 02/10/2025 8:05 AM CDT Surgery [facility] [address] [place] [phone] Patricia Smith MD [address] [id number] CARDIOVERSION documented as of this encounter Visit Diagnoses Not on filedocumented in this encounter Care Teams Petroleum Inspector Supervisor Relationship Specialty Start Date End Date Lopez Pool MD PCP - General Family Medicine 03/18/22 Hema Castaneda MD Consulting Physician Cardiology 01/11/19 Colleen Bain MD Referring Physician Endocrinology Diabetes & Metabolism 04/07/19 Rosette Espinoza MD Referring Physician Cardiology 04/07/19 Jacqueline Schaeffer, communications editor Failure Coordinator Cardiology 07/13/24 Jenni Hartley, RN Registered Nurse 07/13/24 08/01/24 Anat Hutchison 07/13/24 documented as of this encounter
--- OUTSIDE RECORDS SUMMARY | 2025-01-10 18:37 | XMS_ITS | Encounter Summary ---
Author Organization [facility] Address [address] [place] [address] Phone Care Team Providers Care Data Processing Consultant Name Role Phone Elmer Wallace MD Primary Care Provider [phone] Hema Castaneda MD Unavailable [phone] Colleen Bain MD Unavailable [phone] Rosette Espinoza MD Unavailable [phone] Jenni Hartley RN Unavailable Unavailable Meenu Jones NP Unavailable [phone] Lopez Pool MD Primary Care Provider [phone] Jacqueline Schaeffer RN Unavailable Unavailable Jenni Hartley RN Unavailable Unavailable Anat Hutchison Unavailable Unavailable Encounter Details Date Type Department Care Team (Late st Contact Info) Description 02/15/2018 Orders Only [facility] CAR CLINCONV ProviderLexi MD [address] [place] [address] Social History Tobacco Use Types Packs/Day Years Used Date Smoking Tobacco: Former Comments Unknown Sex and Gender Information Value Date Recorded Sex Assigned at Not on file Legal 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 Female 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 Gender Identity Female 07/13/2018 9:28 AM CDT Sexual Orientation Not on file documented as of this encounter Plan of Treatment Upcoming Encounters Date Type Department Care Team (Latest Contact Info) Description 02/10/2025 7:30 AM CDT Hospital Encounter [facility] 1 [place] [phone] Nate, Concrete Saw Operator, [address] [place] [address] Patricia Smith MD [address] [place] [address] Atrial fibrillation, unspecified type (HCC) 02/10/2025 7:30 AM CDT - 02/10/2025 8:05 AM CDT Surgery [facility] 1 [place] [address] Patricia Smith MD [address] [place], [place] [id number] CARDIOVERSION documented as of this encounter Procedures [...] 02/15/2018 Ordered by an unspecified provider. Result [facility] Provider CV CARDIAC SERVICES PROCE DURES Final Result * CARDIOLOGY REPORT (02/15/2018) Anatomical Region Laterality Modality Other Narrative 02/15/2018 Ordered by an unspecified provider. Result [facility] Provider CV CARDIAC SERVICES PROCE DURES Final Result * CARDIOLOGY REPORT (02/15/2018) Anatomical Region Laterality Modality Other Narrative 02/15/2018 Ordered by an unspecified provider. Result [facility] Provider CV CARDIAC SERVICES PROCE DURES Final Result * CARDIOLOGY REPORT (02/15/2018) Anatomical Region Laterality Modality Other Narrative 02/15/2018 Ordered by an unspecified provider. Result [facility] Provider CV CARDIAC SERVICES PROCE DURES Final Result * CARDIOLOGY REPORT (02/15/2018) Anatomical Region Laterality Modality Other Narrative 02/15/2018 Ordered by an unspecified provider. Result [facility] Provider CV CARDIAC SERVICES PROCE DURES Final Result * CARDIOLOGY REPORT (02/15/2018) Anatomical Region Laterality Modality Other Narrative 02/15/2018 Ordered by an unspecified provider. Result [facility] Provider CV CARDIAC SERVICES PROCE DURES Final Result * CARDIOLOGY REPORT (02/15/2018) Anatomical Region Laterality Modality Other Narrative 02/15/2018 Ordered by an unspecified provider. Result [facility] Provider CV CARDIAC SERVICES PROCE DURES Final Result * CARDIOLOGY REPORT (02/15/2018) Anatomical Region Laterality Modality Other Narrative 02/15/2018 Ordered by an unspecified provider. Result [facility] Provider CV CARDIAC SERVICES PROCE DURES Final Result * CARDIOLOGY REPORT (02/15/2018) Anatomical Region Laterality Modality Other Narrative 02/15/2018 Ordered by an unspecified provider. [facility] Provider CV CARDIAC SERVICES PROCE DURES Final Result * CARDIOLOGY REPORT (02/15/2018) Anatomical Region Laterality Modality Other Narrative 02/15/2018 Ordered by an unspecified provider. [facility] Provider CV CARDIAC SERVICES PROCE DURES Final Result * CARDIOLOGY REPORT (02/15/2018) Anatomical Region Laterality Modality Other Narrative 02/15/2018 Ordered by an unspecified provider. [facility] Provider CV CARDIAC SERVICES PROCE DURES Final Result * CARDIOLOGY REPORT (02/15/2018) Anatomical Region Laterality Modality Other Narrative 02/15/2018 Ordered by an unspecified provider. [facility] Provider CV CARDIAC SERVICES PROCE DURES Final Result * CARDIOLOGY REPORT (02/15/2018) Anatomical Region Laterality Modality Other Narrative 02/15/2018 Ordered by an unspecified provider. [facility] Provider CV CARDIAC SERVICES PROCE DURES Final Result * CARDIOLOGY REPORT (02/15/2018) Anatomical Region Laterality Modality Other Narrative 02/15/2018 Ordered by an unspecified provider. Result [facility] Provider CV CARDIAC SERVICES PROCE DURES Final Result documented in this encounter Visit Diagnoses Not on filedocumented in this encounter Additional Health Concerns Infection Onset Date Last Indicated Resolved Time COVID: Suspected 03/13/2022 03/13/2022 03/13/2022 6:26 PM CDT documented as of this encounter Care Teams Data Processing Consultant Relationship Specialty Start Date End Date Elmer Wallace MD PCP - General 02/09/17 03/17/22 Lopez Pool MD PCP - General Family Medicine 03/18/22 Hema Castaneda MD Consulting Physician Cardiology 01/11/19 Colleen Bain MD Referring Physician Endocrinology Diabetes & Metabolism 04/07/19 Rosette Espinoza MD Referring Physician Cardiology 04/07/19 Jenni Hartley, RN Registered Nurse Cardiology 04/02/21 04/22/21 Meenu Jones NP Measuring Machine Operator Cardiology 04/02/21 04/22/21 Jacqueline Schaeffer, dough cutter Failure Coordinator Cardiology 07/13/24 Jenni Hartley, RN Registered Nurse 07/13/24 08/01/24 Anat Hutchison 07/13/24 documented as of this encounter
--- OUTSIDE RECORDS SUMMARY | 2025-01-10 18:37 | XMS_ITS | Encounter Summary ---
Author Organization [facility] [email or web address] [facility] Address [address] [place] [address] Phone Care Team Providers Care Automatic Embroidery Machine Tender Name Role Phone Elmer Wallace MD Primary Care Provider Hema Castaneda MD Unavailable [phone] Colleen Bain MD Unavailable [phone] Rosette Espinoza MD Unavailable [phone] Jenni Hartley RN Unavailable Unavailable Meenu Jones NP Unavailable [phone] Lopez Pool MD Primary Care Provider [phone] Jacqueline Schaeffer RN Unavailable Unavailable Jenni Hartley [...] on file Legal 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 Female 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 Gender Identity Female 07/13/2018 9:28 AM CDT Sexual Orientation Not on file 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 Not on file Not on file documented as of this encounter Plan of Treatment Upcoming Encounters Date Type Department Care Team (Latest Contact Info) Description 02/10/2025 7:30 AM CDT Hospital Encounter [facility] [place] [address] [place] [address] Fred SullivanTrading Floor OperatorMD [address] [place] [address] Patricia Smith MD [address] [facility] [address] [place], [place] [phone] Atrial fibrillation, unspecified type (HCC) 02/10/2025 7:30 AM CDT - 02/10/2025 8:05 AM CDT Surgery [facility] [address] [phone] Patricia Smith MD [address] [facility] [address] [place] [phone] CARDIOVERSION documented as of this encounter Procedures [...] documented as of this encounter Care Teams Automatic Embroidery Machine Tender Relationship Specialty Start Date End Date Elmer Wallace MD PCP - General 02/09/17 03/17/22 Lopez Pool MD PCP - General Family Medicine 03/18/22 Hema Castaneda MD Consulting Physician Cardiology 01/11/19 Colleen Bain MD Referring Physician Endocrinology Diabetes & Metabolism 04/07/19 Rosette Espinoza MD Referring Physician Cardiology 04/07/19 Jenni Hartley, RN Registered Nurse Cardiology 04/02/21 04/22/21 Meenu Jones NP In Home Tutor Cardiology 04/02/21 04/22/21 Jacqueline Schaeffer, candy spreader helper Failure Coordinator Cardiology 07/13/24 Jenni Hartley, RN Registered Nurse 07/13/24 08/01/24 Anat Hutchison 07/13/24 documented as of this encounter
--- OUTSIDE RECORDS SUMMARY | 2025-01-10 18:37 | XMS_ITS | Encounter Summary ---
Author Organization [facility] Address [address] [place] [address] Care Team Providers Care Cord Cutter Name Role Phone Elmer Wallace MD Primary Care Provider [phone] Lopez Pool MD Primary Care Provider [phone] Lopez oPol MD Unavailable [phone] Reason for Referral * Surgical (Routine) - Closed Specialty Diagnoses / Procedures Referred By Amanda asher Referred To Contact Diagnoses Z85.51 Procedures Case request operating room: CYSTOSCOPY Lorin Contreras III, MD Phone: tel: fax: Referral ID Status Reason Start Date Expiration Date Visits Re quested Visits Authorized [id number] Closed 03/22/2020 04/21/2021 1 1 Encounter Details Date Type Department Care Team (Late st Contact Info) Description 03/22/2020 Prep for Procedure [facility] [address] [place] [address] [place] [address] [place] [address] [place] [phone] Social History Tobacco Use Types Packs/Day Years [...] Sex Assigned at Female 11/01/2024 8:23 AM SHOT BAGGER Legal Sex Female 10:48 PM SHOT BAGGER Gender Identity Not on file Sexual Orientation [...] Description 02/07/2025 8:16 AM CDT Hospital Encounter [facility] [address] [place], [place] [address] [address] [place] [address] [place] [phone] 02/07/2025 8:16 AM CDT - 02/07/2025 8:46 AM CDT Surgery [facility] [place] [address] [address] [place] [address] [place] [phone] CYSTOSCOPY Scheduled Orders Name Type Priority Associated [...] Rule Out 10/06/2021 10/06/2021 10/06/2021 8:43 PM SHOT BAGGER COVID-19 Rule Out 02/14/2022 02/14/2022 02/14/2022 8:59 AM CDT COVID-19 Rule Out 02/22/2022 02/22/2022 02/22/2022 2:34 AM CDT COVID-19 Rule Out 02/22/2022 02/22/2022 02/23/2022 11:16 AM CDT COVID-19 Rule Out 06/02/2022 06/02/2022 06/02/2022 9:32 PM CDT COVID-19 Confirmed 06/02/2022 06/02/2022 12:32 AM CDT COVID-19 Rule Out 09/03/2022 09/03/2022 09/03/2022 3:29 PM SHOT BAGGER COVID-19 Rule Out 10/25/2023 10/25/2023 10/25/2023 2:09 PM SHOT BAGGER documented as of this encounter Care Teams Cord Cutter Relationship Specialty Start Date End Date Elmer Wallace MD [address] [place] [phone] PCP - General FAMILY PRACTICE 06/14/19 03/20/22 Lopez Pool MD [address] [place] [phone] PCP - General FAMILY PRACTICE 03/21/22 Lopez Pool MD [address] [place] [phone] FAMILY PRACTICE 03/21/22 documented as of this encounter
--- OUTSIDE RECORDS SUMMARY | 2025-01-10 18:37 | XMS_ITS | Clinical Summary ---
Author Organization [facility] Address [address] [place] [address] Care Team Providers Care Pear Picker Name Role Phone Lopez Pool MD Primary Care Provider [phone] Lopez Pool MD Unavailable [phone] Allergies No known active allergies Medications ferrous [...] (04/17/2021): Added automatically from request for surgery [id number] Bladder tumor 11/21/2020 Overview (11/21/2020): Added automatically from request for surgery [id number] NATI (obstructive sleep apnea) 11/02/2020 Overview (06/18/2024): [...] diabetes mellitus wit h other specified complication ([facility]) 12/19/2019 Overview (06/18/2024): Last Assessment & Plan: [...] at this time. Malignant neoplasm of breast ([facility]) 0 07/13/2018 Overview (06/18/2024): L radical mastectomy with chemo and XRT x [phone]. Last Assessment & Plan: Sp mastectomy - hold anastrozole inpatient, can resume on discharge. AF (atrial fibrillation) ([facility]) 03/24 Overview (06/18/2024): Last Assessment & Plan: Currently in sinus on exam. CHADS-vasc 8. - currently on warfarin 6 mg daily (goal 2-3) - cont sotolol, renally dosed salvage determiner current use of anticoagulant therapy 0 03/24/2018 Chronic obstructive pulmonary disease ([facility]) 08/28/2017 Overview (06/18/2024): Last Assessment & Plan: Continue Anoro ellipta daily - on 2L nocturnal oxygen. No oxygen needed during daytime Chronic diastolic congestive heart failure ([facility]) 02/22/2010 Overview (06/18/2024): Last Assessment & Plan: [...] exacerbation of CHF (c ongestive heart failure) ([facility]) 10/25/2023 06/18/2024 Encounters Date Type Department Care Team Description 01/06/2025 10:59 AM CDT - 01/06/2025 11:59 PM CDT Hospital Encounter [facility] [place] [address] Lopez Pool MD Discharge Disposition: Home or Self Care (Routine Discharge) 01/06/2025 Orders Only [place] [id number] [place] [address] Lopez Pool MD 01/06/2025 Travel 12/23/2024 Hospital Follow-up Call [facility] Care Management [facility] [place] [address] Cori Fernandez RN Hospital Follow Up (12/19/2024 - 12/21/2024 (2 days)/[facility] (Residential )///) 12/19/2024 3:57 PM SANITARY INSPECTOR - 12/21/2024 8:28 AM SANITARY INSPECTOR Hospital Encounter [facility] [address] [place] [address] Deena Kong MD Wujek, Daniel A, MD Cochran, Keith A, MD Medical Screening Discharge Disposition: Home with Home Health Care 12/19/2024 Travel 12/16/2024 2:40 PM SANITARY INSPECTOR - 12/16/2024 11:59 PM SANITARY INSPECTOR Hospital Encounter [facility] [address] [place], [place] [address] [place] [address] Chanel Ponce NP Discharge Disposition: Home or Self Care (Routine Discharge) 12/16/2024 Orders Only [facility] [address] [place], [place] [address] [place] [address] Chanel Ponce NP 12/16/2024 Travel 11/15/2024 8:00 AM SANITARY INSPECTOR - 11/15/2024 9:00 AM SANITARY [place] [address] [place], [place] [address] [place] [address] Lorin Contreras III, MD TRANS URETHRAL RESECTION BLADDER TUMOR 11/15/2024 7:40 AM SANITARY INSPECTOR [place] [address] [place], [place] [address] [place] [address] Rosalba Avery, STORES LABORER 11/15/2024 6:34 AM SANITARY INSPECTOR - 11/15/2024 9:20 AM SANITARY INSPECTOR [place] [address] [place], [place] [address] [place] [address] Lorin Contreras III, MD Discharge Disposition: Home or Self Care (Routine Discharge) 11/15/2024 Travel 11/01/2024 9:50 AM SANITARY INSPECTOR - 11/01/2024 10:15 AM SANITARY [place] [address] [place], [place] [address] [address] Bernardo Brandon MD EGD with cold forcep biopies 11/01/2024 9:35 AM SANITARY INSPECTOR Anesthesia Event [facility] [address] [place] [address] Jamie Ruelas CRNA 11/01/2024 8:24 AM SANITARY INSPECTOR - 11/01/2024 10:33 AM SANITARY INSPECTOR [place] [address] [place], [place] [address] [address] Bernardo Brandon MD Discharge Disposition: Home or [...] materials from doctor or pharmacy Never 12/30/2023 [facility] Utilities Answer Date Recorded In the past 12 months has e [employer], gas, oil, or water [employer] threatened to shut off services in your [...] often do you attend chur ch or anglican services? 1 to 4 times per year 02/22/2022 Do you belong to any clubs o r organizations such as judaism groups, unions, fraternal or athletic groups, or [...] move on to questions 3-9 0 02/22/2022 [facility] - Occupational [...] place to sleep or slept in a fdc (including now)? No 10/25/2023 Housing Stability Vital Sign Answer Sebas e Recorded In the last 12 months, was t here a time when you were not able to pay the mortgage or rent on time? No 12/19/2024 In the past 12 months, how m any times have you moved where you were living? 1 12/19/2024 At any time in the past [facility], were you homeless or living in a fdc (including now)? No 12/19/2024 Comments No Sex and Gender Information Value Date Recorded Sex Assigned at Female 11/01/2024 8:23 AM SANITARY INSPECTOR Legal Sex Female 10:48 PM SANITARY INSPECTOR Gender Identity Not on file Sexual Orientation Not on file Last Filed Vital Signs Vital Sign Reading Time Taken Comments Blood Pressure 116/48 12/21/2024 7:55 AM SANITARY INSPECTOR Pulse 86 12/21/2024 7:55 AM SANITARY INSPECTOR Temperature 36.3 C (97.3 F) 12/21/2024 7:55 AM SANITARY INSPECTOR Respiratory Rate 16 12/21/2024 7:55 AM SANITARY INSPECTOR Oxygen Saturation 93% 12/21/2024 7:55 AM SANITARY INSPECTOR Inhaled Oxygen Concentration - - Weight 108.9 kg (240 lb) 12/21/2024 5:04 AM SANITARY INSPECTOR Height 167.6 cm (5' 6 ) 12/19/2024 6:15 PM SANITARY INSPECTOR Body Mass Index 38.74 12/19/2024 6:15 PM SANITARY INSPECTOR Plan of Treatment Upcoming Encounters Date Type Department Care Team (Late st Contact Info) Description 02/07/2025 8:16 AM CDT Hospital [place] [address] [place] [address] [place] [address] 02/07/2025 8:16 AM CDT - 02/07/2025 8:46 AM CDT [place] [address] [place] [address] [place] [phone] CYSTOSCOPY Scheduled Procedures Name Priority Associated Diagnoses [...] or Tdap) 09/24/2022 09/24/2012 COVID-19 Vaccine ( - season) 2024 09/03/2021, 02/01/2021, 01/04/2021 Influenza Adult (#1) 2024 07/19/2022, 08/01/2020, 07/26/2019, Additional history exists Hemoglobin A1C 03/01/2025 09/01/2024, 01/0 06/2024, 10/02/2023, Additional history exists Lipid Panel [...] have appropriate support at home upon discharge Priscila yAon LSW Medical Devices Implanted Type Area Chief Nurse Anesthetist Device Identifier Shelf Expiration Date Model / Serial / Lot Pacemaker Pacemaker Right: Chest Procedures Procedure Name Priority Date/Time Associated Diagnosis Comments PROTHROMBIN TIME, VENOUS Routine 01/06/2025 11:21 AM CDT Anticoagulated on Coumadin CBC W/DIFF AUTOMATED Routine 12/21/2024 5:00 AM SANITARY INSPECTOR BASIC METABOLIC PANEL Routine 12/21/2024 5:00 AM SANITARY INSPECTOR POCT GLUCOSE - CHEN DOCKED DEVICE Routine 12/21/2024 3:20 AM SANITARY INSPECTOR POCT GLUCOSE - CHEN DOCKED DEVICE Routine 12/20/2024 9:28 PM SANITARY INSPECTOR POCT GLUCOSE - CHEN DOCKED DEVICE Routine 12/20/2024 11:23 AM SANITARY INSPECTOR POCT GLUCOSE - CHEN DOCKED DEVICE Routine 12/20/2024 6:23 AM SANITARY INSPECTOR BASIC METABOLIC PANEL Routine 12/20/2024 5:03 AM SANITARY INSPECTOR IRON SAT PANEL (IRON,IBC,%SAT) Routine 12/20/2024 5:03 AM SANITARY INSPECTOR FERRITIN Routine 12/20/2024 5:03 AM SANITARY INSPECTOR PROTHROMBIN TIME, VENOUS Routine 12/20/2024 5:03 AM SANITARY INSPECTOR CBC W/DIFF AUTOMATED Routine 12/20/2024 5:03 AM SANITARY INSPECTOR TRANSFUSE RED BLOOD CELLS Routine 12/19/2024 11:41 PM SANITARY INSPECTOR TRANSFUSE RED BLOOD CELLS Routine 12/19/2024 8:00 PM SANITARY INSPECTOR POCT GLUCOSE - CHEN DOCKED DEVICE Routine 12/19/2024 6:58 PM SANITARY INSPECTOR OCCULT BLOOD, FECES STAT 12/19/2024 5 :00 PM SANITARY INSPECTOR TYPE & SCREEN STAT 12/19/2024 4:34 PM SANITARY INSPECTOR PRO-BRAIN NATRIURETIC PEPTIDE STAT 12/19/2024 4:34 PM SANITARY INSPECTOR PROTHROMBIN TIME, VENOUS STAT 12/19/2024 4:34 PM SANITARY INSPECTOR BASIC METABOLIC PANEL STAT 12/19/2024 4:34 PM SANITARY INSPECTOR CBC W/DIFF AUTOMATED STAT 12/19/2024 4:34 PM SANITARY INSPECTOR XR CHEST PORTABLE STAT 12/19/2024 4:2 6 PM SANITARY INSPECTOR ECG 12-LEAD Routine 12/19/2024 4:04 PM SANITARY INSPECTOR THYROXINE, FREE (FT4) Routine 12/16/2024 2:57 PM SANITARY INSPECTOR PRO-BRAIN NATRIURETIC PEPTIDE Routine 12/16/2024 2:57 PM SANITARY INSPECTOR Chronic diastolic (congestive) heart failure (CMS/HCC HHS/HCC) TSH W/REFLEX Routine 12/16/2024 2:57 PM SANITARY INSPECTOR Chronic diastolic (congestive) heart failure (CMS/HCC HHS/HCC) COMPREHENSIVE METABOLIC PANEL Routine 12/16/2024 2:57 PM SANITARY INSPECTOR Chronic diastolic (congestive) heart failure (CMS/HCC HHS/HCC) POCT GLUCOSE - CHEN DOCKED DEVICE Routine 11/15/2024 7:31 AM SANITARY INSPECTOR CYSTOSCOPY TRANSURETHRAL RESECTION BLADDER TUMOR 11/15/2024 7:25 AM SANITARY INSPECTOR 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 PATHOLOGY Routine 11/15/2024 12:00 AM SANITARY INSPECTOR H PYLORI UREASE Routine 11/01/2024 9:44 AM SANITARY INSPECTOR UPPER GI ENDOSCOPY,BIOPSY 11/01/2024 9:29 AM SANITARY INSPECTOR ANEMIA POCT GLUCOSE - CHEN DOCKED DEVICE Routine 11/01/2024 9:05 AM SANITARY INSPECTOR ENDOSCOPY (SCAN ORDER) 7:16 AM SANITARY INSPECTOR PATHOLOGY Routine 11/01/2024 12:00 AM SANITARY INSPECTOR LIPID PANEL Routine 09/01/2024 9:30 AM SANITARY INSPECTOR Anemia DM (diabetes mellitus) ([facility]) HTN (hypertension) Hypothyroidism Hyperlipidemia COPD (chronic obstructive pulmonary disease) ([facility]) SOB (shortness of breath) HEMOGLOBIN, GLYCOSYLATED Routine 09/01/2024 9:30 AM SANITARY INSPECTOR Anemia DM (diabetes mellitus) ([facility]) HTN (hypertension) Hypothyroidism Hyperlipidemia COPD (chronic obstructive pulmonary disease) ([facility]) SOB (shortness of breath) BONE DENSITY/DEXA Routine 04/15/2022 9:1 6 AM CDT Post-menopausal from Last 3 Months or Most Recently Relevant to Health Maintenance Results * (ABNORMAL) PROTIME/INR, VENOUS (01/06/2025 11:21 AM CDT) Only the most recent of3 resultswithin the time period is included. PROTIME 16.9(H) 9.4 - 12.5 SEC 01/06/2025 11:36 AM CDT [facility] INR 1.5(H) 0.8 - 1.0 01/06/2025 11:36 AM CDT [facility] 01/06/2025 11:2 1 AM CDT Lopez Pool MD LABORATORY Final Result [facility] [address] [place] [address], * (ABNORMAL) BASIC METABOLIC PANEL (12/21/2024 5:00 AM SANITARY INSPECTOR) Only the most recent of3 resultswithin the time period is included. SODIUM S/P/B 138 136 - 145 MMOL/L 12/21/2024 5:38 AM SANITARY INSPECTOR [facility] POTASSIUM S/P/B 4.2 3.5 - 5.1 MMOL/L 12/21/2024 5:38 AM [facility] CHLORIDE S/P/B 101 98 - 107 MMOL/L 12/21/2024 5:38 AM [facility] CO2 30.1 21.0 - 32.0 MMOL/L 12/21/2024 5:38 AM [facility] GLUCOSE 197(H) 70 - 99 MG/DL 12/21/2024 5:38 AM [facility] Comment: FASTING GLUCOSE 100 TO 125 MG/DL IS CONSISTENT WITH IMPAIRED FASTING GLUCOSE. FASTING GLUCOSE >125 MG/DL IS CONSISTENT WITH DIABETES. RANDOM GLUCOSE >200 MG/DL WITH HYPERGLYCEMIC SYMPTOMS IS CONSISTENT WITH DIABETES. PER ADA GUIDELINES BUN 29(H) 6 - 24 MG/DL 12/21/2024 5:38 AM [facility] CREATININE S/P/B 1.57(H) 0.55 - 1.02 MG/DL 12/21/2024 5:38 AM [facility] CALCIUM S/P/B 8.4 8.4 - 10.5 MG/DL 12/21/2024 5:38 AM [facility] ANION GAP 6.9 5.0 - 15.0 MMOL/L 12/21/2024 5:38 AM [facility] OSMOLALITY (CALC) 297 MOSM/KG 025 5:38 AM [facility] Comment:REFERENCE RANGE NOT ESTABLISHED GFR ESTIMATE 33(L) >89 ML/MIN/1. 73 M2 12/21/2024 5:38 AM [facility] GFR NOTES GFR REFERENCE S: 12/21/2024 5:38 AM [facility] Comment: THE ESTIMATED GFR IS CALCULATED [...] FAILURE: <15 ml/min/1.73 m2 12/21/2024 5:00 AM SANITARY INSPECTOR Ruthie Scanlon [facility]- LABORATORY Final Res ult [facility] [address] [place] [address], * (ABNORMAL) CBC W/DIFF AUTOMATED (12/21/2024 5:00 AM SANITARY INSPECTOR) Only the most recent of3 resultswithin the time period is included. WBC 7.01 4.00 - 10.80 x10'3/uL 12/21/2024 5:29 AM [facility] RBC 3.31(L) 4.10 - 5.40 x10'6/uL 12/21/2024 5:29 AM [facility] HGB 7.9(L) 12.0 - 16.0 G/DL 12/21/2024 5:29 AM [facility] HCT 26.6(L) 36.0 - 47.0 % 12/21/2024 5:29 AM [facility] MCV 80.4 78.0 - 100.0 FL 12/21/2024 5:29 AM [facility] MCH 23.9(L) 27.0 - 31.0 PG 12/21/2024 5:29 AM [facility] MCHC 29.7(L) 33.0 - 36.0 G/DL 12/21/2024 5:29 AM [facility] RDW 15.9(H) 11.5 - 14.5 % 12/21/2024 5:29 AM [facility] PLT 237 150 - 350 x10'3/uL 12/21/2024 5:29 AM [facility] MPV 11.4(H) 7.4 - 10.4 FL 12/21/2024 5:29 AM [facility] CBC COMMENT NORMAL REFERENCE RANGE NOT ESTABLISHED FOR THE PROPORTIONAL LEUKOCYTE DIFFERENTIAL. 12/21/2024 5:29 AM [facility] NEUTROPHILS % 79.1 % 12/21/2024 5:29 AM [facility] LYMPHOCYTES % 8.7 % 12/21/2024 5:29 AM [facility] MONOCYTES % 9.4 % 12/21/2024 5:29 AM [facility] EOSINOPHILS % 1.1 % 12/21/2024 5:29 AM [facility] BASOPHILS % 1.0 % 12/21/2024 5:29 AM [facility] IMMATURE GRANS % 0.7 % 12/22/19 5:29 AM [facility] NRBC % 0.4 % 12/21/2024 5:29 AM [facility] ABS. NEUTROPHILS 5.54 1.60 - 8.30 x10'3/uL 12/21/2024 5:29 AM [facility] ABS. LYMPHOCYTES 0.61(L) 0.80 - 4.70 x10'3/uL 12/21/2024 5:29 AM [facility] ABS. MONOCYTES 0.66 0.00 - 1.50 x10'3/uL 12/21/2024 5:29 AM [facility] ABS. EOSINOPHILS 0.08 0.00 - 0.40 x10'3/uL 12/21/2024 5:29 AM [facility] ABS. BASOPHILS 0.07 0.00 - 0.20 x10'3/uL 12/21/2024 5:29 AM [facility] ABS. IMMATURE GRANULOCYTES 0.05(H) 0.00 - 0.03 x10'3/uL 12/21/2024 5:29 AM [facility] ABS. NUCLEATED RBC'S 0.03(H) 0.00 - 0.01 x10'3/uL 12/21/2024 5:29 AM [facility] 12/21/2024 5:00 AM [facility] us Lopez Pool MD LABORATORY Final Result Performing Organization Address City/[facility]/ZIP Co de Phone Number [facility] [address] [place] [address], * (ABNORMAL) POCT glucose (12/21/2024 3:20 AM SANITARY INSPECTOR) Only the most recent of7 resultswithin the time period is included. GLUCOSE POC 174(H) 70 - 99 MG/DL 12/21/2024 3:21 AM SANITARY INSPECTOR [facility] 12/21/2024 3:20 AM SANITARY INSPECTOR us Lopez Pool MD POCT ORDERABLES - DEVICE Final Result Performing Organization Address [facility] [email or web address]] Co de Phone Number [facility] [address] [place] [address], * (ABNORMAL) IRON SAT PANEL (IRON,IBC,%SAT) (12/20/2024 5:03 AM SANITARY INSPECTOR) IRON 14(L) 50 - 170 MCG/DL 12/20/2024 9:15 AM SANITARY INSPECTOR [facility] IRON BINDING CAPACITY 412 250 - 450 MCG/DL 12/20/2024 9:15 AM SANITARY INSPECTOR [facility] IRON SATURATION 3 % 9:15 AM SANITARY INSPECTOR [facility] Comment:REFERENCE RANGE NOT ESTABLISHED 12/20/2024 5:03 AM SANITARY INSPECTOR us Lopez Pool MD LABORATORY Final Result Performing Organization Address City/[facility]/ZIP Co de Phone Number [facility] [address] [place] [address], * FERRITIN (12/20/2024 5:03 AM SANITARY INSPECTOR) FERRITIN 20.7 8 - 252 NG/ML 12/20/2024 9:35 AM SANITARY INSPECTOR [facility] 12/20/2024 5:03 AM SANITARY INSPECTOR Lopez Pool MD LABORATORY Final Result Performing Organization Address [facility]/ZIP Co de Phone Number [facility] [address] [place] [address], [place] [phone] * TRANSFUSE RED BLOOD CELLS (12/20/2024 2:52 AM SANITARY INSPECTOR) Only the most recent of2 resultswithin the time period is included. us Deena Kong MD NURSING TREATMENT ORDERABLES - BLOOD ADMIN Final Result * OCCULT BLOOD, FECES (12/19/2024 5:00 PM SANITARY INSPECTOR) OCCULT BLOOD FECAL 4+ NEGATIVE 12/19/2024 5:16 PM SANITARY INSPECTOR [facility] STOOL SPECIMEN / Unknown 12/19/2024 5:00 PM SANITARY INSPECTOR us Deena Kong MD BODY FLUIDS AND STOOLS ORDERA BLES Final Result Performing Organization Address [facility] [email or web address]] Co de Phone Number [facility] [address] [place] [address], [place] [phone] * (ABNORMAL) PRO-BRAIN NATRIURETIC PEPTIDE (12/19/2024 4:34 PM SANITARY INSPECTOR) Only the most recent of2 resultswithin the time period is included. PRO-B TYPE NATRIURETIC PEPTIDE 2,521(H) <450 PG/ML 12/19/2024 5:04 PM SANITARY INSPECTOR [facility] Comment: CUT POINTS ESTABLISHED BY INTERNATIONAL [...] 72% FOR ACUTE CHF. 12/19/2024 4:34 PM SANITARY INSPECTOR us Deena Kong MD LABORATORY Final Result [facility] [address] [place] [address], * TYPE & SCREEN (12/19/2024 4:34 PM SANITARY INSPECTOR) UNITS ORDERED 2 12/19/2024 5:40 PM SANITARY INSPECTOR [facility] ABO/RH O NEGATIVE 12/19/2024 5:24 PM SANITARY INSPECTOR [facility] ANTIBODY SCREEN NEGATIVE 5:24 PM SANITARY INSPECTOR [facility] SAMPLE EXPIRATION 12/22/2024,2359 12/19/2024 5:24 PM SANITARY INSPECTOR [facility] BLOOD UNIT NUMBER [id number] 12/19/2024 5:40 PM SANITARY INSPECTOR [facility] PRODUCT: PC LEUKO PHERE BAG2 12/19/2024 5:40 PM SANITARY INSPECTOR [facility] UNIT DIVISION 00 12/19/2024 5:40 PM SANITARY INSPECTOR [facility] BLOOD UNIT STATUS TRANSFUSED,FINAL 12/20/2024 1:16 AM SANITARY INSPECTOR [facility] ISSUE DATE/TIME [id number] 025 1:16 AM SANITARY INSPECTOR [facility] PRODUCT CODE [id number] 12/20/2024 1:16 AM SANITARY INSPECTOR [facility] ABO/RH Unit O NEG 12/20/2024 1:16 AM SANITARY INSPECTOR [facility] ABO/RH UNIT ISBT CODE 9500 12/20/2024 1:16 AM SANITARY INSPECTOR [facility] BLOOD UNIT EXPIRATION DATE [id number] 12/20/2024 1:16 AM SANITARY INSPECTOR [facility] TRANSFUSION STATUS OK TO TRANSFUSE 12/19/2024 5:40 PM SANITARY INSPECTOR [facility] CROSSMATCH COMPATIBLE 12/19/2024 5:40 PM SANITARY INSPECTOR [facility] BLOOD UNIT NUMBER [id number] 12/19/2024 5:40 PM SANITARY INSPECTOR [facility] PRODUCT: APHERESIS LRBC 12/19/2024 5:40 PM SANITARY INSPECTOR [facility] UNIT DIVISION 00 12/19/2024 5:40 PM SANITARY INSPECTOR [facility] BLOOD UNIT STATUS TRANSFUSED,FINAL 12/20/2024 1:16 AM SANITARY INSPECTOR [facility] ISSUE DATE/TIME [id number] 025 1:16 AM SANITARY INSPECTOR [facility] PRODUCT CODE [id number] 12/20/2024 1:16 AM SANITARY INSPECTOR [facility] ABO/RH Unit O NEG 12/20/2024 1:16 AM SANITARY INSPECTOR [facility] ABO/RH UNIT ISBT CODE 9500 12/20/2024 1:16 AM SANITARY INSPECTOR [facility] BLOOD UNIT EXPIRATION DATE [id number] 12/20/2024 1:16 AM SANITARY INSPECTOR [facility] TRANSFUSION STATUS OK TO TRANSFUSE 12/19/2024 5:40 PM SANITARY INSPECTOR [facility] CROSSMATCH COMPATIBLE 12/19/2024 5:40 PM SANITARY INSPECTOR [facility] 12/19/2024 4:34 PM SANITARY INSPECTOR us Deena Kong MD BLOOD BANK TEST ORDERABLES Fi nal Result [facility] [place] [id number], * XR CHEST PORTABLE (12/19/2024 4:26 PM SANITARY INSPECTOR) Anatomical Region Laterality Modality Chest Radiographic Zeinab ging 12/19/2024 4:33 PM SANITARY INSPECTOR Impressions 12/19/2024 4:37 PM SANITARY INSPECTOR IMPRESSION: 1. No acute cardiopulmonary process identified. 2. Stable borderline cardiac size. Ordered By: DEENA KONG Interpreted By: Jamie Carlos MD, 12/19/2024 4:33 PM Narrative 12/19/2024 4:37 PM SANITARY INSPECTOR [place] [address] [address] [address] Examination: Portable chest. Exam time: 1621 hours. [...] Procedure Note Jamie Carlos MD - 12/19/[address] [place] [address] Examination: Portable chest. Exam time: 1621 hours. [...] * ECG 12 lead (12/19/2024 4:04 PM SANITARY INSPECTOR) 12/19/2024 4:04 PM SANITARY INSPECTOR Narrative [facility] - 12/21/2024 8:46 AM SANITARY INSPECTOR [address] [place] [address] Test Date: 2024-12-19 Pat Name: WALKER HILLIARD Department: 3 Room: [facility] Gender: Female Rn Support Services: : 1945 Requested By: DEENA KONG Order Number: [id number] Jermaine MD: Damion Cornejo Measurements Intervals [place] Rate: 88 P: 0 MO: 0 QRS: -49 QRSD: 114 T: 53 QT: 418 QTc: 507 Interpretive Statements ATRIAL FIBRILLATION PATTERN CONSISTENT WITH PULMONARY DISEASE LEFT ANTERIOR FASCICULAR BLOCK MINIMAL ST DEPRESSION TARY INSPECTOR Procedure Note Damion Cornejo MD - 12/21/[address] [place] [address] Test Date: 2024-12-19 Pat Name: WALKER HILLIARD Department: 3 Room: 330 Gender: Female Rn Support Services: : 1945 Requested By: DEENA KONG Order Number: [id number] Reading MD: Damion Cornejo Measurements Intervals [place] Rate: 88 P: 0 MO: 0 QRS: -49 QRSD: 114 T: 53 QT: 418 QTc: 507 Interpretive Statements ATRIAL FIBRILLATION PATTERN CONSISTENT WITH PULMONARY DISEASE LEFT ANTERIOR FASCICULAR BLOCK MINIMAL ST DEPRESSION TARY INSPECTOR Deena Kong MD ECG ORDERABLES Final Result Performing Organization Address City/[facility]/ZIP Co de Phone Number [facility] * (ABNORMAL) TSH W/REFLEX (12/16/2024 2:57 PM SANITARY INSPECTOR) TSH 7.266(H) 0.358 - 3.740 uIU/ML 12/16/2024 4:35 PM SANITARY INSPECTOR [facility] Comment: ASSAY PERFORMED BY CHEMILUMINESCENT IMMUNOASSAY METHODOLOGY USING SIEMENS DIMENSION REAGENT. PATIENT RESULTS DETERMINED BY ASSAYS FROM DIFFERENT MANUFACTURERS AND/OR BY DIFFERENT METHODS MAY NOT BE COMPARABLE. 12/16/2024 2:57 PM SANITARY INSPECTOR Chanel Ponce EXTRACORPOREAL TECHNICIAN LABORATORY Final Result [facility] [address] [place] [address], * (ABNORMAL) COMPREHENSIVE METABOLIC PANEL (12/16/2024 2:57 PM SANITARY INSPECTOR) SODIUM S/P/B 137 136 - 145 MMOL/L 12/16/2024 4:11 PM [facility] POTASSIUM S/P/B 4.2 3.5 - 5.1 MMOL/L 12/16/2024 4:11 PM [facility] CHLORIDE S/P/B 97(L) 98 - 107 MMOL/L 12/16/2024 4:11 PM [facility] CO2 29.5 21.0 - 32.0 MMOL/L 12/16/2024 4:11 PM [facility] GLUCOSE 199(H) 70 - 99 MG/DL 12/16/2024 4:11 PM [facility] Comment: FASTING GLUCOSE 100 TO 125 MG/DL IS CONSISTENT WITH IMPAIRED FASTING GLUCOSE. FASTING GLUCOSE >125 MG/DL IS CONSISTENT WITH DIABETES. RANDOM GLUCOSE >200 MG/DL WITH HYPERGLYCEMIC SYMPTOMS IS CONSISTENT WITH DIABETES. PER ADA GUIDELINES BUN 40(H) 6 - 24 MG/DL 12/16/2024 4:11 PM [facility] CREATININE S/P/B 1.68(H) 0.55 - 1.02 MG/DL 12/16/2024 4:11 PM [facility] CALCIUM S/P/B 9.0 8.4 - 10.5 MG/DL 12/16/2024 4:11 PM [facility] BILIRUBIN TOTAL S/P/B 0.4 0.2 - 1.0 MG/DL 12/16/2024 4:11 PM [facility] Comment: THIS ASSAY IS NOT RECOMMENDED FOR PATIENTS UNDERGOING TREATMENT WITH ELTROMBOPAG DUE TO THE POTENTIAL FOR FALSELY ELEVATED RESULTS. ALKALINE PHOSPHATASE S/P/B 134 55 - 142 U/L 12/16/2024 4:11 PM [facility] AST 60(H) 15 - 37 U/L 12/16/2024 4:11 PM [facility] ALT 44 14 - 59 U/L 12/16/2024 4:11 PM [facility] [facility] TOTAL PROTEIN S/P/B 6.8 6.4 - 8.2 G/DL 12/16/2024 4:11 PM SANITARY INSPECTOR [facility] ALBUMIN S/P/B 3.2(L) 3.4 - 5.0 G/DL 12/16/2024 4:11 PM SANITARY INSPECTOR [facility] ANION GAP 10.5 5.0 - 15.0 MMOL/L 12/16/2024 4:11 PM SANITARY INSPECTOR [facility] OSMOLALITY (CALC) 299 MOSM/KG 025 4:11 PM SANITARY INSPECTOR [facility] Comment:REFERENCE RANGE NOT ESTABLISHED GFR ESTIMATE 30(L) >89 ML/MIN/1. 73 M2 12/16/2024 4:11 PM SANITARY INSPECTOR [facility] GFR NOTES GFR REFERENCE S: 12/16/2024 4:11 PM SANITARY INSPECTOR [facility] Comment: THE ESTIMATED GFR IS CALCULATED [...] FAILURE: <15 ml/min/1.73 m2 12/16/2024 2:57 PM SANITARY INSPECTOR us Chanel Ponce NP LABORATORY Final Result [facility] [address] [place] [address], * THYROXINE, FREE (FT4) (12/16/2024 2:57 PM SANITARY INSPECTOR) FREE T4 1.40 0.76 - 1.46 NG/DL 12/16/2024 5:00 PM SANITARY INSPECTOR [facility] 12/16/2024 2:57 PM SANITARY INSPECTOR us Chanel Clay Kris CASH LABORATORY Final Result [facility] [address] [phone], * Pathology (11/15/2024 12:00 AM SANITARY INSPECTOR) Only the most recent of2 resultswithin the time period is included. PATHOLOGY [facility] Department of Laboratory Medicine [address] [place] [address] , extension [phone] Pathology Report Surgical Pathology Report Name: WALKER HILLIARD Specimen #: [id number] Age: 7 1945 (Age: 79) Location: [facility] Sex: F Procedure Date: 11/15/2024 Hospital #: [id number] Date Received: 11/15/2024 Date Reported: 11/17/2024 Provider: [...] Gross examination (when applicable) was performed at [facility], [address] [place] [address]. This case was interpreted and signed out at [facility], [address] [place] [address]. Electronically Signed Out Roshan Sharma M.D. [facility] TISSUE URINARY BLADDER STRUCTURE / Unknown 11/15/2024 7:56 AM SANITARY INSPECTOR Lorin Contreras III, MD PATHOLOGY/CYTOLOGY ORDER KE Final Result Performing Organization Address City/[facility]/ZIP Co de Phone Number [facility] [address] [place] [address], [place] [phone] * H PYLORI UREASE (11/01/2024 9:44 AM SANITARY INSPECTOR) SPEC DESCRIPTION GASTRIC BIOPSY 11/01/2024 9:47 AM SANITARY INSPECTOR [facility] SPECIAL REQUESTS NO SPECIAL REQUEST 11/01/2024 9:47 AM SANITARY INSPECTOR [facility] DIRECT EXAM PRESUMPTIVE NEGATIVE FOR H. PYLORI 11/02/2024 10:10 AM SANITARY INSPECTOR [facility] TISSUE GASTRIC BIOPSY SPECIMEN / Unknown 11/01/2024 9:39 AM SANITARY INSPECTOR us Bernardo Brandon MD MICROBIOLOGY - GENERAL ORDERA BLES Final Result Performing Organization Address [facility] [[email or web address]] Co de Phone Number [facility] [address] [place] [address], * ENDOSCOPY (SCAN ORDER) (11/01/2024 7:16 AM SANITARY INSPECTOR) us Bernardo Brandon MD SCANNING Final Result * (ABNORMAL) HEMOGLOBIN, GLYCOSYLATED (09/01/2024 9:30 AM SANITARY INSPECTOR) HGB A1C 7.1(H) <5.7 % 09/02/2024 1:39 PM SANITARY INSPECTOR [facility] ESTIMATED AVG GLUCOSE 157(H) 74 - 114 MG/DL 09/02/2024 1:39 PM SANITARY INSPECTOR [facility] 09/01/2024 9:30 AM SANITARY INSPECTOR us Lopez Pool MD LABORATORY Final Result Performing Organization Address [facility]/ZIP Co de Phone Number [facility] [address] [place] [address], [place] [phone] * LIPID PANEL (09/01/2024 9:30 AM SANITARY INSPECTOR) CHOLESTEROL 233 MG/DL 09/02/2024 1:35 PM SANITARY INSPECTOR [facility] Comment:BORDERLINE HIGH: 200 -239 TRIGLYCERIDES 278 MG/DL 09/02/2024 1:35 PM SANITARY INSPECTOR [facility] Comment:200-499 HIGH HDL 51 >49 MG/DL 09/02/2024 1:35 PM SANITARY INSPECTOR [facility] LDL-C 126 MG/DL 09/02/2024 1:35 PM SANITARY INSPECTOR [facility] Comment:100-129 NEAR OR ABOV E OPTIMAL VLDL CALCULATION 56 MG/DL 09/02/20 1:35 PM SANITARY INSPECTOR [facility] Comment:REFERENCE RANGE NOT ESTABLISHED CHOL/HDL RATIO 4.6 09/02/2024 1:35 PM SANITARY INSPECTOR [facility] Comment:REFERENCE RANGE NOT ESTABLISHED LDL/HDL 2.5 09/02/2024 1:35 PM SANITARY INSPECTOR [facility] Comment:REFERENCE RANGE NOT ESTABLISHED NON HDL CHOLESTEROL 182 MG/DL 09/02/2024 1:35 PM SANITARY INSPECTOR [facility] Comment:REFERENCE RANGE NOT ESTABLISHED 09/01/2024 9:30 AM SANITARY INSPECTOR Lopez Pool MD LABORATORY Final Result Performing Organization Address City/State/[facility] [[email or web address]] Co de Phone Number [facility] [address] [place] [address], [phone] * BONE DENSITY/DEXA (04/15/2022 9:16 AM CDT) [...] atWHO category level of normal. 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 Power of Job Spotter Advance Directives and Living Will 12/21/2024 9:03 [...] Living Will 01/02/2018 SHORT FORM POWER OF HOIST WORKER Advance Directives and Living Will 01/02/2018 ADVANCE DIRECTIVE Advance Directives and Living Will 01/02/2018 ADVANCE DIRECTIVE Advance Directives and Living Will 01/02/2018 ADVANCE DIRECTIVE Advance Directives and Living Will 01/02/2018 SHORT FORM POWER OF HOIST WORKER Advance Directives and Living Will 01/02/2018 ADVANCE DIRECTIVE Advance Directives and Living Will 01/02/2018 ADVANCE DIRECTIVE Advance Directives and Living Will 01/02/2018 ADVANCE DIRECTIVE Advance Directives and Living Will 01/02/2018 SHORT FORM POWER OF HOIST WORKER Advance Directives and Living Will 09/08/2017 ADVANCE DIRECTIVE Advance Directives and Living Will 09/08/2017 ADVANCE DIRECTIVE Advance Directives and Living Will 09/08/2017 ADVANCE DIRECTIVE Advance Directives and Living Will 09/08/2017 ADVANCE DIRECTIVE Advance Directives and Living Will 09/08/2017 SHORT FORM POWER OF HOIST WORKER Advance Directives and Living Will 06/18/2015 ADVANCE DIRECTIVE Advance Directives and Living Will 06/18/2015 ADVANCE DIRECTIVE Advance Directives and Living Will 06/18/2015 ADVANCE DIRECTIVE Advance Directives and Living Will 06/18/2015 ADVANCE DIRECTIVE Advance Directives and Living Will 06/18/2015 SHORT FORM POWER OF HOIST WORKER Advance Directives and Living Will 06/05/2015 ADVANCE DIRECTIVE Advance Directives and Living Will 06/05/2015 ADVANCE DIRECTIVE Advance Directives and Living Will 06/05/2015 ADVANCE DIRECTIVE Advance Directives and Living Will 06/05/2015 ADVANCE DIRECTIVE Advance Directives and Living Will 06/05/2015 SHORT FORM POWER OF HOIST WORKER Advance Directives and Living Will 05/28/2015 ADVANCE DIRECTIVE Advance Directives and Living Will 05/28/2015 ADVANCE DIRECTIVE Advance Directives and Living Will 05/28/2015 ADVANCE DIRECTIVE Advance Directives and Living Will 05/28/2015 ADVANCE DIRECTIVE Advance Directives and Living Will 05/28/2015 SHORT FORM POWER OF HOIST WORKER Advance Directives and Living Will 05/09/2015 ADVANCE DIRECTIVE Advance Directives and Living Will 05/09/2015 ADVANCE DIRECTIVE Advance Directives and Living Will 05/09/2015 ADVANCE DIRECTIVE Advance Directives and Living Will 05/09/2015 ADVANCE DIRECTIVE Advance Directives and Living Will 05/09/2015 SHORT FORM POWER OF HOIST WORKER Advance Directives and Living Will 05/07/2015 ADVANCE DIRECTIVE Advance Directives and Living Will 05/07/2015 ADVANCE DIRECTIVE Advance Directives and Living Will 05/07/2015 ADVANCE DIRECTIVE Advance Directives and Living Will 05/07/2015 ADVANCE DIRECTIVE Advance Directives and Living Will 05/07/2015 SHORT FORM POWER OF HOIST WORKER Advance Directives and Living Will 05/02/2015 ADVANCE DIRECTIVE Advance Directives and Living Will 05/02/2015 ADVANCE DIRECTIVE Advance Directives and Living Will 05/02/2015 ADVANCE DIRECTIVE Advance Directives and Living Will 05/02/2015 ADVANCE DIRECTIVE Advance Directives and Living Will 05/02/2015 SHORT FORM POWER OF HOIST WORKER Advance Directives and Living Will 04/25/2015 ADVANCE DIRECTIVE Advance Directives and Living Will 04/25/2015 ADVANCE DIRECTIVE Advance Directives and Living Will 04/25/2015 ADVANCE DIRECTIVE Advance Directives and Living Will 04/25/2015 SHORT FORM POWER OF HOIST WORKER Advance Directives and Living Will 04/23/2015 12:00 AM POWER OF HOIST WORKER Advance Directives and Living Will 04/17/2015 12:00 AM POWER OF HOIST WORKER Advance Directives and Living Will 04/16/2015 ADVANCE DIRECTIVE Advance Directives and Living Will 04/16/2015 ADVANCE DIRECTIVE Advance Directives and Living Will 04/16/2015 ADVANCE DIRECTIVE Advance Directives and Living Will 04/16/2015 SHORT FORM POWER OF HOIST WORKER Advance Directives and Living Will 04/12/2015 ADVANCE DIRECTIVE Advance Directives and Living Will 04/12/2015 ADVANCE DIRECTIVE Advance Directives and Living Will 04/12/2015 ADVANCE DIRECTIVE Advance Directives and Living Will 04/12/2015 ADVANCE DIRECTIVE Advance Directives and Living Will 04/12/2015 SHORT FORM POWER OF HOIST WORKER Advance Directives and Living Will 03/14/2015 ADVANCE DIRECTIVE Advance Directives and Living Will 03/14/2015 ADVANCE DIRECTIVE Advance Directives and Living Will 03/14/2015 ADVANCE DIRECTIVE Advance Directives and Living Will 03/14/2015 SHORT FORM POWER OF HOIST WORKER Advance Directives and Living Will 03/04/2015 ADVANCE DIRECTIVE Advance Directives and Living Will 03/04/2015 ADVANCE DIRECTIVE Advance Directives and Living Will 03/04/2015 ADVANCE DIRECTIVE Advance Directives and Living Will 03/04/2015 SHORT FORM POWER OF HOIST WORKER Advance Directives and Living Will 02/27/2015 ADVANCE DIRECTIVE Advance Directives and Living Will 02/27/2015 ADVANCE DIRECTIVE Advance Directives and Living Will 02/27/2015 ADVANCE DIRECTIVE Advance Directives and Living Will 02/27/2015 SHORT FORM POWER OF HOIST WORKER Advance Directives and Living Will 02/06/2015 ADVANCE [...] 2:04 PM 11/04/2023 8:47 AM Care Teams Pear Picker Relationship Specialty Start Date End Date Lopez Pool MD [address] [phone] PCP - General FAMILY PRACTICE 03/21/22 Lopez Pool MD [address] [place] [phone] [facility] 03/21/22
--- OUTSIDE RECORDS SUMMARY | 2025-01-10 18:37 | XMS_ITS | Clinical Summary ---
Author Organization Unknown Care Team Providers Care Towel Distributor Name Role Phone HOMEROGUANAKITO Kumar Unavailable Unavailable MICHELLE PHYSICAL THERAPIST, ANGELICA Unavailable Unavailable O[employer] FACILITIES DIRECTOR, SALLY chavira Unavailable MAINOR [address]RE[address] COUNSELOR, JAVAN Unavailable Unavailable KALIA REGISTERED NURSE, CESAR Unavailable Unavailable Payers Payer Name Policy Type Policy Number Effective Date Expira tion Date MEDICARE [facility] [id number] Problems Condition Name Condition Details Condition Category Status Onset Date Resolution Date Last Treatment Date Treating Clinician Comments CHRONIC OBSTRUCTIVE PULMONARY DISEASE, UNSPECIFIED Active 10-19 00:00: 00 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 CHR KDNY Active 10-19 00:00: 00 CHRONIC DIASTOLIC (CONGESTIVE) HEART FAILURE Active 10-19 00:00: 00 CHRONIC KIDNEY DISEASE, STAGE 3B Active 10-19 00:00: 00 ANEMIA IN CHRONIC KIDNEY DISEASE Active 10-19 00:00: 00 TYPE 2 DIABETES MELLITUS WITH DIABETIC POLYNEUROPAT HY Active 10-19 00:00: 00 CHRONIC RESPIRATORY FAILURE WITH HYPOXIA Active 10-19 00:00: 00 MELENA Active 10-19 00:00: 00 ANXIETY DISORDER, UNSPECIFIED Active 10-19 00:00: 00 DEPRESSION, UNSPECIFIED Active 10-19 00:00: 00 ATHSCL HEART DISEASE OF [place] CORONARY ARTERY W/O ANG PCTRS Active 10-19 00:00: 00 PAROXYSMAL ATRIAL FIBRILLATION Active 10-19 00:00: 00 OBSTRUCTIVE SLEEP APNEA (ADULT) (PEDIATRIC) Active 10-19 00:00: 00 IRON DEFICIENCY ANEMIA SECONDARY TO BLOOD LOSS (CHRONIC) Active 10-19 00:00: 00 HYPERLIPIDEM IA, UNSPECIFIED Active 10-19 00:00: 00 HYPOTHYROIDI SM, UNSPECIFIED Active 10-19 00:00: 00 HYPOMAGNESEM IA Active 10-19 00:00: 00 OLD MYOCARDIAL INFARCTION Active 10-19 00:00: 00 UNSPECIFIED OSTEOARTHRIT IS, UNSPECIFIED SITE Active 10-19 00:00: 00 PRESENCE OF CARDIAC PACEMAKER Active 10-19 00:00: 00 PRSNL HX OF TIA (TIA), AND CEREB INFRC W/O RESID DEFICITS Active 10-19 00:00: 00 PERSONAL HISTORY OF MALIGNANT NEOPLASM OF BREAST Active 10-19 00:00: 00 PERSONAL HISTORY OF NICOTINE DEPENDENCE Active 10-19 00:00: 00 SNF (CURRENT) USE OF ANTICOAGULAN TS Active 10-19 00:00: 00 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 Active 10-19 00:00: 00 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 OF ORAL HYPOGLYCEMIC DRUGS Active 10-19 00:00: 00 SNF (CURRENT) USE OF INHALED STEROIDS Active 10-19 00:00: 00 HORMONE REPLACEMENT THERAPY Active 10-19 00:00: 00 OTHER SNF (CURRENT) DRUG THERAPY Active 10-19 00:00: 00 DEPENDENCE ON SUPPLEMENTAL OXYGEN Active 10-19 00:00: 00 DO NOT RESUSCITATE Active 10-19 00:00: 00 HISTORY OF FALLING Active 10-19 00:00: 00 Allergies, Adverse Reactions, Alerts Allergy Name Allergy Type Status Severity Reaction(s) Onset Date Inactive Date Treating Clinician Comments NO KNOWN ALLERGIES Propensity to adverse reactions Active 06-30 09:43: 40 Medications Ordered Medication Name Filled Medication Name Start Date Stop Date Current Medication? Ordering Clinician Indication Dosage Frequency Signature (SIG) Comments Components albuterol sulfate HFA 90 mcg/actuati on aerosol inhaler 06-29 00:00: 00 Yes [id number] COPD 2 puff EVERY 4 HOURS 2 puff EVERY 4 HOURS (route: inhalation ) Med Classific ation: Respirato ry Therapy Agents amiodarone 200 mg tablet 06-29 00:00: 00 Yes [id number] HEART HEALTH 1 tablet ONCE DAILY 1 tablet ONCE DAILY (route: oral) Med Classific ation: Cardiovas cular Therapy Agents aspirin 81 mg tablet,[place] [facility] release 06-29 00:00: 00 08-11 23:59 :00 No [id number] BLOOD CLOT PREVENTION 1 tablet ONCE DAILY 1 tablet ONCE DAILY (route: oral) Med Classific ation: Hematolog ical Agents atorvastati n 40 mg tablet 06-29 00:00: 00 08-01 23:59 :00 No [id number] HYPERCHOLES TEROLEMIA 1 tablet ONCE DAILY 1 tablet ONCE DAILY (route: oral) Med Classific ation: Cardiovas cular Therapy Agents Basaglar KwikPen U-100 Insulin 100 unit/mL (3 mL) [facility] 06-29 00:00: 00 Yes [id number] DM 55 unit AT BEDTIME 55 unit AT BEDTIME (route: subcutaneo ) Med Classific ation: Endocrine Calcium-600 600 mg (as calcium carbonate 1,500 mg) tablet 06-29 00:00: 00 Yes [id number] SUPPLEMENT 1 tablet ONCE DAILY 1 tablet ONCE DAILY (route: oral) Med Classific ation: Electroly te Balance-N utritiona l Products fluticasone propionate 50 mcg/actuati on nasal spray,suspe nsion 06-29 00:00: 00 Yes [id number] ALLERGIC RHINITIS 1 spray ONCE DAILY 1 spray ONCE DAILY (route: nasal) Med Classific ation: Respirato ry Therapy Agents furosemide 40 mg tablet 06-29 00:00: 00 09-05 23:59 :00 No [id number] EDEMA 1 tablet ONCE DAILY 1 tablet ONCE DAILY (route: oral) Med Classific ation: Cardiovas cular Therapy Agents ipratropium 0.5 mg-albutero l 3 mg (2.5 mg base)/3 mL nebulizatio n soln 06-29 00:00: 00 Yes [id number] COPD 1 mL EVERY 4 HOURS 1 mL EVERY 4 HOURS (route: inhalation ) Med Classific ation: Respirato ry Therapy Agents levothyroxi ne 125 mcg tablet 06-29 00:00: 00 10-04 23:59 :00 No [id number] HYPERTHYROI DISM 1 tablet ONCE DAILY 1 tablet ONCE DAILY (route: oral) Med Classific ation: Endocrine magnesium 500 mg (as magnesium oxide) tablet 06-29 00:00: 00 Yes [id number] HYPOMAGNESE DAVIS 2 tablet ONCE DAILY 2 tablet ONCE DAILY (route: oral) Med Classific ation: Electroly te Balance-N utritiona l Products metformin 500 mg tablet 06-29 00:00: 00 Yes [id number] DM 1 tablet TWICE DAILY 1 tablet TWICE DAILY (route: oral) Med Classific ation: Endocrine nystatin 100,000 unit/gram topical cream 06-29 00:00: 00 Yes [id number] GAULDING Per instruc tions TWICE DAILY Per instructio ns TWICE DAILY (route: topical) Med Classific ation: Dermatolo gical nystatin 100,000 unit/gram topical powder 06-29 00:00: 00 Yes [id number] GAULDING Per instruc tions TWICE DAILY Per instructio ns TWICE DAILY (route: topical) Med Classific ation: Dermatolo gical oxygen gas for inhalation 06-29 00:00: 00 08-11 23:59 :00 No [id number] COPD 2 Liter AT BEDTIME 2 Liter AT BEDTIME (route: inhalation ) Med Classific ation: Medical Supplies and Durable Medical Equipment (DME) pantoprazol e 40 mg tablet,[place] [facility] release 06-29 00:00: 00 08-11 23:59 :00 No [id number] GERD 1 tablet ONCE DAILY 1 tablet ONCE DAILY (route: oral) Med Classific ation: Gastroint estinal Therapy Agents sertraline 100 mg tablet 06-29 00:00: 00 10-04 23:59 :00 No [id number] DEPRESSION 0.5 tablet ONCE DAILY 0.5 tablet ONCE DAILY (route: oral) Med Classific ation: Central Nervous System Agents spironolact one 25 mg tablet 06-29 00:00: 00 Yes [id number] HYPERTENSIO N 1 tablet ONCE DAILY 1 tablet ONCE DAILY (route: oral) Med Classific ation: Cardiovas cular Therapy Agents tramadol 50 mg tablet 06-29 00:00: 00 Yes [id number] PAIN 1 tablet EVERY 6 HOURS PRN 1 tablet EVERY 6 HOURS PRN (route: oral) Med Classific ation: Analgesic , Anti-infl ammatory or Antipyret ic Trelegy Ellipta 200 mcg-62.5 mcg-25 mcg powder for inhalation 06-29 00:00: 00 Yes [id number] COPD 1 inhalat ion ONCE DAILY 1 inhalation ONCE DAILY (route: inhalation ) Med Classific ation: Respirato ry Therapy Agents triamcinolo ne acetonide 0.1 % topical ointment 06-29 00:00: 00 Yes [id number] ITCHING Per instruc tions TWICE DAILY Per instructio ns TWICE DAILY (route: topical) Med Classific ation: Dermatolo gical Ventolin HFA 90 mcg/actuati on aerosol inhaler 06-29 00:00: 00 Yes [id number] COPD 2 puff EVERY 4 HOURS 2 puff EVERY 4 HOURS (route: inhalation ) Med Classific ation: Respirato ry Therapy Agents Vitamin D3 50 mcg (2,000 unit) tablet 06-29 00:00: 00 Yes [id number] SUPPLEMENT 1 tablet ONCE DAILY 1 tablet ONCE DAILY (route: oral) Med Classific ation: Electroly te Balance-N utritiona l Products warfarin 4 mg tablet 06-29 00:00: 00 12-12 23:59 :00 No [id number] BLOOD CLOT PREVENTION 1 tablet DIRECTED 1 tablet DIRECTED (route: oral) Med Classific ation: Hematolog ical Agents warfarin 5 mg tablet 06-29 00:00: 00 12-12 23:59 :00 No [id number] BLOOD CLOT PREVENTION 1 tablet DIRECTED 1 tablet DIRECTED (route: oral) Med Classific ation: Hematolog ical Agents Zyrtec 10 mg tablet 06-29 00:00: 00 Yes [id number] ALLERGIES 1 tablet ONCE DAILY 1 tablet ONCE DAILY (route: oral) Med Classific ation: Respirato ry Therapy Agents ferrous sulfate 325 mg (65 mg iron) tablet 2023-10 00:00: 00 01-05 23:59 :00 No [id number] ANEMIA 1 tablet EVERY OTHER DAY 1 tablet EVERY OTHER DAY (route: oral) Med Classific ation: Electroly te Balance-N utritiona l Products oxygen gas for inhalation 2023-10 0 00:00: 00 Yes [id number] SHORTNESS OF BREATH Per instruc tions DIRECTED Per instructio ns DIRECTED (route: inhalation ) Alternate Route: O2 - NASAL CANNULA. Med Classific ation: Medical Supplies and Durable Medical Equipment (DME) pantoprazol e 40 mg tablet,[place] [facility] release 2023-10 00:00: 00 Yes [id number] GERD 1 tablet TWICE DAILY 1 tablet TWICE DAILY (route: oral) Med Classific ation: Gastroint estinal Therapy Agents Lasix 40 mg tablet 2023-10 00:00: 00 12-12 23:59 :00 No [id number] FLUID RETENTION 1.5 tablet ONCE DAILY 1.5 tablet ONCE DAILY (route: oral) Med Classific ation: Cardiovas cular Therapy Agents sucralfate 1 gram tablet 2023-10 00:00: 00 Yes [id number] ANEMIA 1 tablet 4 TIMES DAILY 1 tablet 4 TIMES DAILY (route: oral) Med Classific ation: Gastroint estinal Therapy Agents levothyroxi ne 137 mcg tablet 2023-10 00:00: 00 Yes [id number] HYPOTHYROID ISM 1 tablet ONCE DAILY 1 tablet ONCE DAILY (route: oral) Med Classific ation: Endocrine sertraline 100 mg tablet 2023-10 00:00: 00 Yes [id number] DEPRESSION 1 tablet ONCE DAILY 1 tablet ONCE DAILY (route: oral) Med Classific ation: Central Nervous System Agents warfarin 4 mg tablet 12-12 00:00: 00 12-19 23:59 :00 No [id number] PREVENT CLOTS 1 tablet DIRECTED 1 tablet DIRECTED (route: oral) Med Classific ation: Hematolog ical Agents warfarin 5 mg tablet - 00:00: 00 12-19 23:59 :00 No [id number] PREVENT CLOTS 1 tablet DIRECTED 1 tablet DIRECTED (route: oral) Med Classific ation: Hematolog ical Agents Lasix 80 mg tablet 2-24 00:00: 00 12-13 23:59 :00 No [id number] FLUID RETENTION 1 tablet ONCE DAILY 1 tablet ONCE DAILY (route: oral) Med Classific ation: Cardiovas cular Therapy Agents Lasix 40 mg tablet - 00:00: 00 Yes [id number] EDEMA 1.5 tablet ONCE DAILY 1.5 tablet ONCE DAILY (route: oral) Med Classific ation: Cardiovas cular Therapy Agents warfarin 5 mg tablet 12-19 00:00: 00 12-26 23:59 :00 No [id number] PREVENT CLOTS 1 tablet ONCE DAILY 1 tablet ONCE DAILY (route: oral) Med Classific ation: Hematolog ical Agents ferrous sulfate 325 mg (65 mg iron) tablet 01-05 00:00: 00 Yes [id number] ANEMIA 1 tablet 3 TIMES DAILY 1 tablet 3 TIMES DAILY (route: oral) Med Classific ation: Electroly te Balance-N utritiona l Products warfarin 5 mg tablet 01-05 00:00: 00 Yes [id number] PREVENT CLOTS 1 tablet ONCE DAILY 1 tablet ONCE DAILY (route: oral) Med Classific ation: Hematolog ical Agents Immunizations Ordered Immunization Name Filled Immunization Name Date Status Comments Refusal Reason INFLUENZA, TIV (INACTIVATED) 2023-07-15 00:00:00 INFLUENZA, TIV (INACTIVATED) 2023-07-15 00:00:00 COVID-19 MONOVALENT, MRNA 2021-01-04 00:00:00 PNEUMOCOCCAL (PPV), PPV 2018-07-23 00:00:00 PNEUMOCOCCAL (PPV), PPV 2018-07-23 00:00:00 Vital Signs Vital Name Observation Time Observation Value Commen ts Temperature 2025-01-10 12:44:00.000 98.6 [degF] Temperature 2025-01-04 11:58:00.000 97.5 [degF] Pulse 2025-01-10 12:44:00.000 70 /min Pulse 2025-01-04 11:58:00.000 82 /min O2 Saturation (%) 2025-01-10 12:44:00.000 98 % O2 Saturation (%) 2025-01-04 11:58:00.000 92 % Respirations 2025-01-10 12:44:00.000 20 /min Respirations 2025-01-04 11:58:00.000 20 /min Weight (lbs) 2025-01-04 11:58:00.000 235.2 [lb_av] Systolic Blood Pressure 2025-01-10 12:44:00.000 136 mm [Hg] Systolic Blood Pressure 2025-01-04 11:58:00.000 128 mm [Hg] Diastolic Blood Pressure 2025-01-10 12:44:00.000 78 mm [Hg] Diastolic Blood Pressure 2025-01-04 11:58:00.000 70 mm [Hg] Plan of Treatment Planned Activity Planned Date Details Comments Future Scheduled Test HOME HEALT H NURSE WILL INSTRUCT ABOUT COPD, APPROPRIATE BREATHING TECHNIQUES, STRATEGIES TO MANAGE COPD TO PREVENT EXACERBATIONS, STRATEGIES TO PROMOTE SLEEP, USE OF A COPD ACTION PLAN, AND WARNING SIGNS TO CALL THE AGENCY, TREATING PROVIDER, OR 911. [code = HOME HEALTH NURSE WILL INSTRUCT ABOUT COPD, APPROPRIATE BREATHING TECHNIQUES, STRATEGIES TO MANAGE COPD TO PREVENT EXACERBATIONS, STRATEGIES TO PROMOTE SLEEP, USE OF A COPD ACTION PLAN, AND WARNING SIGNS TO CALL THE AGENCY, TREATING PROVIDER, OR 911.] Future Scheduled Test HOME HEALT H NURSE WILL TEACH PATIENT/CAREGIVER ABOUT HEART FAILURE, EDEMA, AND HOW TO WEIGH DAILY AT THE SAME TIME EVERY MORNING AFTER URINATING AND BEFORE BREAKFAST. INSTRUCT PATIENT TO CHECK FOR LBS. OF WEIGHT GAIN CAUSED BY INCREASED FLUID AND CONTACT THE PHYSICIAN IF 2LBS WEIGHT GAIN IN 1 DAY OR 5LBS WEIGHT GAIN IN 1 WEEK. HOME HEALTH RN TO TEACH PATIENT ABOUT WARNING SIGNS TO CONTACT THE AGENCY, PHYSICIAN, OR 911. MAY ADD 2 PRN VISITS PER MONTH FOR SIGNS/SYMPTOMS OF EXACERBATION SUCH INCREASED EDEMA, WEIGHT GAIN, SHORTNESS OF BREATH, OR FATIGUE. [code = HOME HEALTH NURSE WILL TEACH PATIENT/CAREGIVER ABOUT HEART FAILURE, EDEMA, AND HOW TO WEIGH DAILY AT THE SAME TIME EVERY MORNING AFTER URINATING AND BEFORE BREAKFAST. INSTRUCT PATIENT TO CHECK FOR LBS. OF WEIGHT GAIN CAUSED BY INCREASED FLUID AND CONTACT THE PHYSICIAN IF 2LBS WEIGHT GAIN IN 1 DAY OR 5LBS WEIGHT GAIN IN 1 WEEK. HOME HEALTH RN TO TEACH PATIENT ABOUT WARNING SIGNS TO CONTACT THE AGENCY, PHYSICIAN, OR 911. MAY ADD 2 PRN VISITS PER MONTH FOR SIGNS/SYMPTOMS OF EXACERBATION SUCH INCREASED EDEMA, WEIGHT GAIN, SHORTNESS OF BREATH, OR FATIGUE.] Future Scheduled Test THE CER TIFYING PHYSICIAN, ASSOCIATED PHYSICIAN, NPP OR PA WITHIN THE SAME GROUP MAY APPROVE AND SIGN THE ORDER (ON ANY PAGE) ATTESTING THAT THE COMPREHENSIVE OUTCOME ASSESSMENTS, EVALUATIONS, AND HOME HEALTH CERTIFICATION PLANS SUPPORT HOMEBOUND STATUS. HOME HEALTH WEB-PORTAL DOCUMENTATION ACCESSED BY THE PHYSICIAN MUST BE INCORPORATED INTO THE MEDICAL RECORD TO CORROBORATE THE PHYSICIAN, NPP, OR PAS F2F ENCOUNTER TO SUPPORT ELIGIBILITY FOR HOME HEALTH SERVICES. [code = THE CERTIFYING PHYSICIAN, ASSOCIATED PHYSICIAN, NPP OR PA WITHIN THE SAME GROUP MAY APPROVE AND SIGN THE ORDER (ON ANY PAGE) ATTESTING THAT THE COMPREHENSIVE OUTCOME ASSESSMENTS, EVALUATIONS, AND HOME HEALTH CERTIFICATION PLANS SUPPORT HOMEBOUND STATUS. HOME HEALTH WEB-PORTAL DOCUMENTATION ACCESSED BY THE PHYSICIAN MUST BE INCORPORATED INTO THE MEDICAL RECORD TO CORROBORATE THE PHYSICIAN, NPP, OR PAS F2F ENCOUNTER TO SUPPORT ELIGIBILITY FOR HOME HEALTH SERVICES.] Future Scheduled Test EACH ORDER ED IN-HOME OR TELEHEALTH VISIT, THE SKILLED NURSE WILL CONDUCT A COMPREHENSIVE ASSESSMENT INCLUDING VITAL SIGNS, PAIN, SAFETY, MENTAL/COGNITIVE/PSYCHOSOCIAL STATUS, MED MANAGEMENT, NUTRITION, SKIN INTEGRITY, PRESSURE ULCER PREVENTION, AND PATIENT/CAREGIVER ABILITY TO SUPPORT ORDERED CARE. SKILLED NURSE WILL INSTRUCT ON DISEASE PROCESS, MED MGMT., FALL PREVENTION AND SAFETY, INFECTION CONTROL AND PREVENTION, WARNING SIGNS, ADDRESS RESULTS OUTSIDE OF ORDERED PARAMETERS LISTED ON CARE PLAN, AND COORDINATE DISCHARGE WITH THE TREATING PROVIDER. MAY ACCEPT ORDERS FROM THE FOLLOWING PROVIDER(S) WHO WILL BE CONSULTING ON THE CERTIFIED CARE PLAN: DR UNDERWOOD [code = EACH ORDERED IN-HOME OR TELEHEALTH VISIT, THE SKILLED NURSE WILL CONDUCT A COMPREHENSIVE ASSESSMENT INCLUDING VITAL SIGNS, PAIN, SAFETY, MENTAL/COGNITIVE/PSYCHOSOCIAL STATUS, MED MANAGEMENT, NUTRITION, SKIN INTEGRITY, PRESSURE ULCER PREVENTION, AND PATIENT/CAREGIVER ABILITY TO SUPPORT ORDERED CARE. SKILLED NURSE WILL INSTRUCT ON DISEASE PROCESS, MED MGMT., FALL PREVENTION AND SAFETY, INFECTION CONTROL AND PREVENTION, WARNING SIGNS, ADDRESS RESULTS OUTSIDE OF ORDERED PARAMETERS LISTED ON CARE PLAN, AND COORDINATE DISCHARGE WITH THE TREATING PROVIDER. MAY ACCEPT ORDERS FROM THE FOLLOWING PROVIDER(S) WHO WILL BE CONSULTING ON THE CERTIFIED CARE PLAN: DR UNDERWOOD] Future Scheduled Test HOME HEALT H NURSE WILL TEACH THE PATIENT/CAREGIVER ABOUT WHAT IS AFIB/AFLUTTER, HOW TO CHECK OWN PULSE AND TRACK, SIGNS AND SYMPTOMS OF WHEN ARRYTHMIA OCCURS, AND WHAT WARNING SIGNS TO CALL THE AGENCY, PHYSICIAN OR 911. [code = HOME HEALTH NURSE WILL TEACH THE PATIENT/CAREGIVER ABOUT WHAT IS AFIB/AFLUTTER, HOW TO CHECK OWN PULSE AND TRACK, SIGNS AND SYMPTOMS OF WHEN ARRYTHMIA OCCURS, AND WHAT WARNING SIGNS TO CALL THE AGENCY, PHYSICIAN OR 911.] Future Scheduled Test SKILLED NU RSE TO OBSERVE AND ASSESS PATIENT WITH GENERALIZED DEPRESSION AND TEACH DEPRESSIVE SYMPTOMS. [code = SKILLED NURSE TO OBSERVE AND ASSESS PATIENT WITH GENERALIZED DEPRESSION AND TEACH DEPRESSIVE SYMPTOMS.] Future Scheduled Test SKILLED NU RSE TO ASSESS PATIENT WITH ANXIETY DISORDER AND TEACH SYMPTOMS OF ANXIETY. [code = SKILLED NURSE TO ASSESS PATIENT WITH ANXIETY DISORDER AND TEACH SYMPTOMS OF ANXIETY.] Future Scheduled Test HOME HEALT H NURSE WILL INSTRUCT PATIENT/CAREGIVER ON TYPE 2 DIABETES DISEASE PROCESS, HOW TO CREATE A DIABETIC TOOLKIT TO MANAGE INVENTORY OF SUPPLIES, HOW TO PLAN FOR A SICK-DAY, AND WARNING SIGNS WHEN THE PATIENT EXPERIENCES LOW BLOOD SUGAR. [code = HOME HEALTH NURSE WILL INSTRUCT PATIENT/CAREGIVER ON TYPE 2 DIABETES DISEASE PROCESS, HOW TO CREATE A DIABETIC TOOLKIT TO MANAGE INVENTORY OF SUPPLIES, HOW TO PLAN FOR A SICK-DAY, AND WARNING SIGNS WHEN THE PATIENT EXPERIENCES LOW BLOOD SUGAR.] Future Scheduled Test HOME HEALT H NURSE WILL INSTRUCT AND VERIFY APPROPRIATE STEPS ON HOW THE PATIENT CHECKS OWN BLOOD GLUCOSE AND IMPORTANCE TO TRACK BLOOD RESULTS ON A DAILY LOG OR NOTEBOOK TO MONITOR TRENDS. PATIENT/CAREGIVER OR HOME HEALTH RN WILL PERFORM BLOOD GLUCOSE CHECKS. BLOOD GLUCOSE MONITORING WILL OCCUR 2 TIMES PER DAY. [code = HOME HEALTH NURSE WILL INSTRUCT AND VERIFY APPROPRIATE STEPS ON HOW THE PATIENT CHECKS OWN BLOOD GLUCOSE AND IMPORTANCE TO TRACK BLOOD RESULTS ON A DAILY LOG OR NOTEBOOK TO MONITOR TRENDS. PATIENT/CAREGIVER OR HOME HEALTH RN WILL PERFORM BLOOD GLUCOSE CHECKS. BLOOD GLUCOSE MONITORING WILL OCCUR 2 TIMES PER DAY.] Future Scheduled Test [facility] WILL INSTRUCT AND VERIFY APPROPRIATE STEPS ON HOW THE PATIENT ADMINISTERS INSULIN INJECTIONS USING AN INJECTION PEN AND IMPORTANCE IN SITE SELECTION AND SYRINGE DISPOSAL. PATIENT OR HOME HEALTH RN WILL ADMINISTER INSULIN INJECTIONS USING AN INJECTION PEN PRESCRIBED BY THE PHYSICIAN. [code = HOME HEALTH NURSE WILL INSTRUCT AND VERIFY APPROPRIATE STEPS ON HOW THE PATIENT ADMINISTERS INSULIN INJECTIONS USING AN INJECTION PEN AND IMPORTANCE IN SITE SELECTION AND SYRINGE DISPOSAL. PATIENT OR HOME HEALTH RN WILL ADMINISTER INSULIN INJECTIONS USING AN INJECTION PEN PRESCRIBED BY THE PHYSICIAN.] Future Scheduled Test HOME [facility] NURSE TO INSTRUCT ON CHRONIC KIDNEY DISEASE ITS COMPLICATIONS, AND WHEN TO CONTACT THE AGENCY, PHYSICIAN OR 911 [code = HOME HEALTH NURSE TO INSTRUCT ON CHRONIC KIDNEY DISEASE ITS COMPLICATIONS, AND WHEN TO CONTACT THE AGENCY, PHYSICIAN OR 911] Future Scheduled Test PER SCANNE D IN ORDER: EFFECTIVE 12/26/24: SKILLED NURSE TO OBTAIN CBC WITH DIFF, BMP, FERRITIN, AND IRON AND TOTAL IRON BINDING CAPACITY PER VENIPUNCTURE USING NECESSARY SUPPLIES FOR DIAGNOSIS OF D64.9 ON 12/26/24 WITH RESULTS FAXED TO DR AZEVEDO OFFICE. [code = PER SCANNED IN ORDER: EFFECTIVE 12/26/24: SKILLED NURSE TO OBTAIN CBC WITH DIFF, BMP, FERRITIN, AND IRON AND TOTAL IRON BINDING CAPACITY PER VENIPUNCTURE USING NECESSARY SUPPLIES FOR DIAGNOSIS OF D64.9 ON 12/26/24 WITH RESULTS FAXED TO DR AZEVEDO OFFICE. ] Future Scheduled Test HOME HEALT H NURSE TO INSTRUCT PATIENT/CAREGIVER ON THE TYPE OF OXYGEN SUPPLY SYSTEM, BREATHING DEVICE, OXYGEN SAFETY, CLEANING OF OXYGEN SUPPLIES, EMERGENCY PREPAREDNESS TIPS WHEN MANAGING OXYGEN NEEDS, SIGNS OR SYMPTOMS TO CONTACT THE AGENCY OR PHYSICIAN. [code = HOME HEALTH NURSE TO INSTRUCT PATIENT/CAREGIVER ON THE TYPE OF OXYGEN SUPPLY SYSTEM, BREATHING DEVICE, OXYGEN SAFETY, CLEANING OF OXYGEN SUPPLIES, EMERGENCY PREPAREDNESS TIPS WHEN MANAGING OXYGEN NEEDS, SIGNS OR SYMPTOMS TO CONTACT THE AGENCY OR PHYSICIAN. ] Future Scheduled Test HOME HEALT H NURSE WILL ASSESS FOR COMPLICATIONS RELATED TO ANEMIA AND INSTRUCT PATIENT/CAREGIVER ABOUT CAUSES, PRESCRIBED TREATMENT, AND SIGNS/SYMPTOMS TO REPORT. [code = HOME HEALTH NURSE WILL ASSESS FOR COMPLICATIONS RELATED TO ANEMIA AND INSTRUCT PATIENT/CAREGIVER ABOUT CAUSES, PRESCRIBED TREATMENT, AND SIGNS/SYMPTOMS TO REPORT.] Future Scheduled Test HOME HEALT H NURSE WILL ASSESS FOR COMPLICATIONS RELATED TO ANTICOAGULATION USE AND INSTRUCT PATIENT/CAREGIVER ABOUT PRECAUTIONS TO FOLLOW AND SIGNS/SYMPTOMS TO REPORT. [code = HOME HEALTH NURSE WILL ASSESS FOR COMPLICATIONS RELATED TO ANTICOAGULATION USE AND INSTRUCT PATIENT/CAREGIVER ABOUT PRECAUTIONS TO FOLLOW AND SIGNS/SYMPTOMS TO REPORT.] Goal Patient Goal - S OC 07/01/24: TO GET STRONGER ITZ 08/11/24 TO STAY OUT OF THE HOSPITAL RECERT 08/26/24: TO STAY OUT OF THE HOSPITAL RECERT 10/25/24: TO STAY OUT OF THE HOSPITAL RECERT : TO STAY OUT OF THE HOSPITAL Goal 2024-08-11 Patient Goal - S OC 07/01/24: TO GET STRONGER Goal 2024-10-25 Patient Goal - S OC 07/01/24: TO GET STRONGER ITZ 08/11/24 TO STAY OUT OF THE HOSPITAL RECERT 08/26/24: TO STAY OUT OF THE HOSPITAL Goal 2024-08-26 Patient Goal - S OC 07/01/24: TO GET STRONGER ITZ 08/11/24 TO STAY OUT OF THE HOSPITAL Goal 2024-12-26 Patient Goal - S OC 07/01/24: TO GET STRONGER ITZ 08/11/24 TO STAY OUT OF THE HOSPITAL RECERT 08/26/24: TO STAY OUT OF THE HOSPITAL RECERT 10/25/24: TO STAY OUT OF THE HOSPITAL Goal Provider Goal - PATIENT/CAREGIVER WILL DEMONSTRATE WILLINGNESS TO COLLABORATE AND CREATE A COPD ACTION PLAN, VERBALIZE UNDERSTANDING OF STRATEGIES TO PREVENT EXACERBATIONS, AND VERBALIZE WARNING SIGNS AND WHEN TO CONTACT THE TREATING PROVIDER OR 911 UPON THE END OF HOME HEALTH SERVICES. Goal Provider Goal - PATIENT/CAREGIVER WILL DEMONSTRATE AND ADHERE TO WEIGHING DAILY WITH THE USE OF TRACKING LOG. PATIENT WILL VERBALIZE WAYS TO MONITOR FLUID OVERLOAD FROM OWN QUALITY OF SLEEP, EDEMA, TIGHT-FITTING CLOTHES, QUALITY OF BREATHING, AND CHANGES IN FEELING MORE TIRED OR WEEK BY THE END OF HOME HEALTH SERVICES. Goal Provider Goal - A PLAN OF CARE WILL BE ESTABLISHED THAT MEETS ALL PATIENT'S [facility] NEEDS AND COUNTER SIGNED BY PHYSICIAN. Goal Provider Goal - PATIENT WILL BE FREE OF FALLS AND HOSPITALIZATIONS THROUGHOUT EPISODE OF CARE. PATIENT/CAREGIVER WILL UNDERSTAND AND ADHERE TO ORDERED DIET. PATIENT/CAREGIVER WILL INDEPENDENTLY MANAGE MEDICATIONS, UNDERSTAND ANY CHANGES, SIDE EFFECTS TO REPORT BY DISCHARGE. PATIENT WILL BE FREE OF INFECTION AND UNDERSTAND MEASURES OF PREVENTION. PATIENT/CAREGIVER WILL COLLABORATE WITH SKILLED NURSE TO DEVELOP POC AT SOC AND ON AN ONGOING BASIS UPDATES ARE NEEDED. UNDERSTAND PROGRESS MADE/DISCHARGE PLANNING. ADDITIONAL ORDERS WILL BE RECEIVED FROM ALTERNATE PHYSICIANS IN A TIMELY MANNER. Goal Provider Goal - BY THE END OF HOME HEALTH SERVICES, PATIENT/CAREGIVER WILL DEMONSTRATE HOW TO TAKE THEIR OWN PULSE AND VERBALIZE WHAT WARNING SIGNS TO CALL THE PHYSICIAN OR 911 BY THE END OF HOME HEALTH SERVICES. Goal Provider Goal - PATIENT/CAREGIVER WILL VERBALIZE UNDERSTANDING OF THE CONTRIBUTING FACTORS AND SYMPTOMS OF DEPRESSION. Goal Provider Goal - PATIENT/CAREGIVER WILL VERBALIZE UNDERSTANDING OF THE CONTRIBUTING FACTORS AND SYMPTOMS OF ANXIETY. Goal Provider Goal - PATIENT/CAREGIVER WILL VERBALIZE UNDERSTANDING OF TYPE 2 DIABETES AND THE IMPORTANCE OF MANAGING THE BLOOD SUGAR WITHIN THE EXPECTED RANGE. PATIENT/CAREGIVER WILL ESTABLISH A DIABETIC TOOLKIT AND A SICK-DAY PLAN TO PREPARE FOR POTENTIAL CHANGES WITH BLOOD SUGARS RANGES. PATIENT/CAREGIVER WILL VERBALIZE WARNING SIGNS OF LOW BLOOD SUGAR AND WHAT ACTIONS TO TAKE. Goal Provider Goal - PATIENT/CAREGIVER WILL DEMONSTRATE PROPER TECHNIQUE WHEN CHECKING OWN BLOOD GLUCOSE, DEMONSTRATES ADHERES TO WRITING DOWN RESULTS USING A LOGBOOK, FOLLOWS THE PRESCRIBED FREQUENCY OF BLOOD SUGAR CHECKS PRIOR TO DISCHARGING FROM HOME HEALTH SERVICES. Goal Provider Goal - PATIENT/CAREGIVER WILL INDEPENDENTLY DEMONSTRATE PROPER TECHNIQUE WHEN ADMINISTERING INSULIN INJECTIONS USING AN INJECTION PEN. PATIENT/CAREGIVER WILL VERBALIZE UNDERSTANDING OF APPROPRIATE DISPOSAL OF SYRINGES BY THE END OF HOME HEALTH SERVICES. Goal Provider Goal - PATIENT/CAREGIVER WILL INDEPENDENTLY VERBALIZE THE DEFINITIONS OF CKD, COMPLICATIONS, AND TREATMENTS OF THE DISEASE BY. PATIENT/CAREGIVER WILL INDEPENDENTLY VERBALIZE SYMPTOMS TO REPORT TO THE PHYSICIAN BY THE END OF HOME HEALTH SERVICES. Goal Provider Goal - PATIENT/CAREGIVER WILL VERBALIZE UNDERSTANDING OF THE NEED TO COLLECT THE LAB AND TOLERATE THE LAB COLLECTION PROCEDURE WITHOUT INJURY OR INFECTION. Goal Provider Goal - PATIENT/CAREGIVER WILL VERBALIZE UNDERSTANDING ON HOW TO CLEAN OXYGEN SUPPLIES, OXYGEN SAFETY, AND KNOW WHEN TO CONTACT THE PHYSICIAN BY THE END OF HOME HEALTH SERVICES. Goal Provider Goal - PATIENT/CAREGIVER WILL VERBALIZE UNDERSTANDING OF THE CAUSES OF ANEMIA, SIGNS/SYMPTOMS TO REPORT, AND ADHERENCE TO PRESCRIBED TREATMENT BY END OF HOME HEALTH SERVICES. Goal Provider Goal - PATIENT/CAREGIVER WILL VERBALIZE UNDERSTANDING OF ANTICOAGULATION COMPLICATIONS TO REPORT AND PRECAUTIONS TO FOLLOW BY END OF HOME HEALTH SERVICES. Progress Notes Progress Notes <paragraph>[Visit Date: 2024 by CESAR MOTTA REGISTERED NURSE]:</paragraph><paragraph>PTNT BEING SEEN FOR CHRONIC OBSTRUCTIVE PULMONARY DISEASE, UNSPECIFIED AND ANEMIA PTNT LAYING IN RECLINER WITH LEGS ELEVATED UPON ARRIVAL. PTNT WALKED WITH STEADY GAIT TO KITCHEN FOR VISIT. PTNT REPORTS DR UNDERWOOD RESTARTED WARFARIN AND INCREASED DOSE OF FERROUS SULFATE TO THREE TIMES DAILY. THIS RN CALLED AND SPOKE WITH DARLINE AND UPDATED MEDICATION RECORD. PTNT HAS +2 PITTING EDEMA IN BLE, LUNGS CLEAR, PTNTS SOB REMAINS AT BASELINE, PTNT DENIES BLOOD IN URINE OR STOOL BUT SAYS SHE HAS HAD DIARRHEA BUT ITS HASNT BEEN DARK OR TARRY. PTNT THINKS SHE HAD FOOD POISONING BECAUSE SHE VOMITTED AFTER EATING BREAKFAST ON THURSDAY. PTNT DENIES DIARRHEA TODAY AND THIS RN EDUCATED ON IMPORTANCE OF HYDRATING. THIS RN MARIUM CBC AND TOOK LAB TO [facility]. PTNT EDUCATED ON COPD MANAGMENT AND NEW MEDICATION CHANGES AND WHEN TO REPORT SIGNS/SYMPTOMS OF BLEEDING TO PCP. PTNT VERBALIZED GOOD UNDERSTANDING OF ALL EDUCATION PROVIDED. HAS GI APPT 01/05 AND PCP APPT ON 01/06</paragraph> Encounters Start Date/Time End Date/Time Encounter Type Admission Type Attending [facility] Care Department Encounter ID Discharge Date Discharge Status Discharge Condition Discharge Reason Percent Goals Met 2024-07-01 00:00:00 2025-02-25 00:00:00 [facility] CESAR MOTTA [facility] [id number] 11.43
--- OUTSIDE RECORDS SUMMARY | 2025-01-10 18:37 | XMS_ITS | Encounter Summary ---
Author Organization [facility] Address [address] [place] [address] Phone Care Team Providers Care Appliance Worker Name Role Phone Elmer Wallace MD Primary Care Provider Hema Castaneda MD Unavailable [phone] Colleen Bain MD Unavailable [phone] Rosette Espinoza MD Unavailable [phone] Jenni Hartley RN Unavailable Unavailable Meenu Jones NP Unavailable [phone] Lopez Pool MD Primary Care Provider [phone] Jacqueline Schaeffer RN Unavailable Unavailable Jenni Hartley RN Unavailable Unavailable Anat Hutchison Unavailable Unavailable Encounter Details Date Type Department Care Team (Late st Contact Info) Description 01/07/2018 Orders Only [facility] ProviderLexi MD [address] [place] [address] Social History Tobacco Use Types Packs/Day Years Used Date Smoking Tobacco: Former Comments Unknown Sex and Gender Information Value Date Recorded Sex Assigned at Not on file 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 Gender Identity Female 07/13/2018 9:28 AM CDT Sexual Orientation Not on file documented as of this encounter Plan of Treatment Upcoming Encounters Date Type Department Care Team (Latest Contact Info) Description 02/10/2025 7:30 AM CDT Hospital Encounter [facility] [address] [place] [phone] Nate, Dedicated Owner Operator, [address] [place] [address] Patricia Smith MD [address] [facility] [address] [place] [address] Atrial fibrillation, unspecified type (HCC) 02/10/2025 7:30 AM CDT - 02/10/2025 8:05 AM CDT Surgery [facility] [address] [place] [phone] Patricia Smith MD [address] [facility] [address] [place], [place] [phone] CARDIOVERSION documented as of this encounter Procedures [...] Narrative 01/07/2018 Ordered by an unspecified provider. [facility] Provider CV CARDIAC SERVICES PROCE DURES Final Result * CARDIOLOGY REPORT (01/07/2018) Anatomical Region Laterality Modality Other Narrative 01/07/2018 Ordered by an unspecified provider. [facility] Provider CV CARDIAC SERVICES PROCE DURES Final Result * CARDIOLOGY REPORT (01/07/2018) Anatomical Region Laterality Modality Other Narrative 01/07/2018 Ordered by an unspecified provider. [facility] Provider CV CARDIAC SERVICES PROCE DURES Final Result * CARDIOLOGY REPORT (01/07/2018) Anatomical Region Laterality Modality Other Narrative 01/07/2018 Ordered by an unspecified provider. [facility] Provider CV CARDIAC SERVICES PROCE DURES Final Result documented in this encounter Visit Diagnoses Not on filedocumented in this encounter Additional Health Concerns Infection Onset Date Last Indicated Resolved Time COVID: Suspected 03/13/2022 03/13/2022 03/13/2022 6:26 PM CDT documented as of this encounter Care Teams Appliance Worker Relationship Specialty Start Date End Date Elmer Wallace MD PCP - General 02/09/17 03/17/22 Lopez Pool MD PCP - General Family Medicine 03/18/22 Hema Castaneda MD Consulting Physician Cardiology 01/11/19 Colleen Bain MD Referring Physician Endocrinology Diabetes & Metabolism 04/07/19 Rosette Espinoza MD Referring Physician Cardiology 04/07/19 Jenni Hartley, RN Registered Nurse Cardiology 04/02/21 04/22/21 Meenu Jones NP Card Table Attendant Cardiology 04/02/21 04/22/21 Jacqueline Schaeffer, hoop maker helper machine Failure Coordinator Cardiology 07/13/24 Jenni Hartley, RN Registered Nurse 07/13/24 08/01/24 Anat Hutchison 07/13/24 documented as of this encounter
--- OUTSIDE RECORDS SUMMARY | 2025-01-10 18:37 | XMS_ITS | Encounter Summary ---
Author Organization [facility] Address [facility] [place] [address] Care Team Providers Care Community Development Planner Name Role Phone Lopez Pool MD Primary Care Provider [phone] Lopez Pool MD Unavailable [phone] Encounter Details Date Type Department Care Team (Late st Contact Info) Description 01/06/2025 Orders Only [facility] [address] [place] [address] Lopez Pool MD [address] [place] [address] Social History Tobacco Use Types Packs/Day Years [...] materials from doctor or pharmacy Never 12/30/2023 [facility] Utilities Answer Date Recorded In the past [...] often do you attend chur ch or quaker services? 1 to 4 times per year [...] move on to questions 3-9 0 02/22/2022 [facility] - Occupational [...] place to sleep or slept in a correction (including now)? No 10/25/2023 Housing Stability Vital Sign Answer Sebas e Recorded In the last 12 months, was t here a time when you were not able to pay the mortgage or rent on time? No 12/19/2024 In the past 12 months, how m any times have you moved where you were living? 1 12/19/2024 At any time in the past [address] [facility], were you homeless or living in a correction (including now)? 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 Answer Date of Assessment Author Status No 12/19/2024 6:14 PM Karla Gonzales RN Active * Do you have serious difficulty walking or climbing stairs? Answer Date of Assessment Author Status Yes 12/19/2024 6:14 PM Karla Gonzales RN Active * Do you have difficulty dressing or bathing? Answer Date of Assessment Author Status No 12/19/2024 6:14 PM Karla Gonzales RN Active * Because of a physical, mental, or emotional condition, do you have difficulty doing errands alone such as visiting a doctor's office or shopping? Answer Date of Assessment Author Status Yes 12/19/2024 6:14 PM Karla Gonzales RN Active documented as of this encounter Mental Status * Because of a physical, mental, or emotional condition, do you have serious difficulty concentrating, remembering, or making decisions? Answer Entry Date Author Status No 12/19/2024 6:14 PM Karla Gonzales RN Active documented in this encounter Plan of Treatment Upcoming Encounters Date Type Department Care Team (Late st Contact Info) Description 02/07/2025 8:16 AM CDT Hospital Encounter [facility] [place] [address] [address] [place] [address] [place] [address] 02/07/2025 8:16 AM CDT - 02/07/2025 8:46 AM CDT Surgery [facility] [place] [address] [place] [address] [place] [address] [place] [address] CYSTOSCOPY Scheduled Procedures Name Priority Associated Diagnoses Date/Ti me CYSTOSCOPY 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 Author Safety Patient/family will have appropriate support at home upon discharge Priscila Ayon LSW documented as of this encounter Results * (ABNORMAL) PROTIME/INR, VENOUS (01/06/2025 11:21 AM CDT) PROTIME 16.9(H) 9.4 - 12.5 SEC 01/06/2025 11:36 AM CDT [facility] INR 1.5(H) 0.8 - 1.0 01/06/2025 11:36 AM CDT [facility] 01/06/2025 11:2 1 AM CDT Lopez Pool MD LABORATORY Final Result [facility] [address] [place] [address], documented in this encounter Visit Diagnoses Diagnosis Anticoagulated on Coumadin- Primary Encounter for therapeutic drug monitoring documented in this encounter Additional Health Concerns Assessment Noted Time PHQ-9 Depression Total Score: 0 02/23/20 5:14 AM CDT documented as of this encounter Care Teams Community Development Planner Relationship Specialty Start Date End Date Lopez Pool MD [address] [place] [phone] PCP - General FAMILY PRACTICE 03/21/22 Lopez Pool MD [address] [place] [phone] FAMILY PRACTICE 03/21/22 documented as of this encounter
--- OUTSIDE RECORDS SUMMARY | 2025-01-10 18:37 | XMS_ITS | Encounter Summary ---
Author Organization [facility] Address [address] [place] [address] Phone Care Team Providers Care Jump Roll Operator Name Role Phone Elmer Wallace MD Primary Care Provider [phone] Hema Castaneda MD Unavailable [phone] Colleen Bain MD Unavailable [phone] Rosette Espinoza MD Unavailable [phone] Jenni Hartley RN Unavailable Unavailable Meenu Jones NP Unavailable [phone] Lopez Pool MD Primary Care Provider [phone] Jacqueline Schaeffer RN Unavailable Unavailable Jenni Hartley [...] on file 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 [address] [place], [place] [phone] Atrial fibrillation, unspecified type (HCC) 02/10/2025 7:30 AM CDT - 02/10/2025 8:05 AM CDT Surgery [facility] [address] [phone] Patricia Smith MD [address] [facility] [address] [place] [phone] CARDIOVERSION documented as of this encounter Procedures [...] documented as of this encounter Care Teams Jump Roll Operator Relationship Specialty Start Date End Date Elmer Wallace MD PCP - General 02/09/17 03/17/22 Lopez Pool MD PCP - General Family Medicine 03/18/22 Hema Castaneda MD Consulting Physician Cardiology 01/11/19 Colleen Bain MD Referring Physician Endocrinology Diabetes & Metabolism 04/07/19 Rosette Espinoza MD Referring Physician Cardiology 04/07/19 Jenni Hartley, RN Registered Nurse Cardiology 04/02/21 04/22/21 Meenu Jones NP Weld Technician Cardiology 04/02/21 04/22/21 Jacqueline Schaeffer, supervisor home restoration service Failure Coordinator Cardiology 07/13/24 Jenni Hartley, RN Registered Nurse 07/13/24 08/01/24 Anat Hutchison 07/13/24 documented as of this encounter
--- OUTSIDE RECORDS SUMMARY | 2025-01-10 18:37 | XMS_ITS ---
Author Organization [facility] Address [address] [place], [place] [phone] Care Team Providers Care Fuel Verification Technician Name Role Phone JOVANNI CAST Unavailable [phone] Lopez Pool Unavailable Unavailable PEDRITO MUÑIZ Unavailable [phone] Allergies Allergen (clinical drug ingredient) Drug/Non Drug [...] hydrochloride 500 MG Oral Tablet *Reorder from [employer] for eRx and Interaction Alerts* 6 Active ferrous sulfate 325 MG Oral Tablet ORAL ferrous sulfate 325 MG Oral TabletOriginal Medicationferrous sulfate 325 MG Oral Tablet *Reorder from [employer] for eRx and Interaction Alerts* 6 Bernardo-Cj perez sertraline 100 MG Oral Tablet ORAL sertraline 100 MG Oral TabletOriginal Medicationsertraline 100 MG Oral Tablet *Reorder from [employer] for eRx and Interaction Alerts* 6 Active atorvastatin 40 MG Oral Tablet ORAL atorvastatin 40 MG Oral TabletOriginal Medicationatorvastatin 40 MG Oral Tablet *Reorder from [employer] for eRx and Interaction Alerts* 6 Not-Takin g calcium carbonate 600 MG / ergocalciferol 200 UNT Oral Tablet ORAL calcium carbonate 600 MG / ergocalciferol 200 UNT Oral TabletOriginal Medicationcalcium carbonate 600 MG / ergocalciferol 200 UNT Oral Tablet *Reorder from [employer] for eRx and Interaction Alerts* 6 Active Warfarin Sodium 2 MG Oral Tablet ORAL warfarin sodium 2 MG Oral TabletOriginal Medicationwarfarin sodium 2 MG Oral Tablet *Reorder from [employer] for eRx and Interaction Alerts* 6 Active Amiodarone HCl 200 MG 1 tablet Orally Once a day Active Anastrozole 1 MG Oral Tablet ORAL anastrozole 1 MG Oral TabletOriginal Medicationanastrozole 1 MG Oral Tablet *Reorder from [employer] for eRx and Interaction Alerts* 6 Not-Takin g Lisinopril 40 MG Oral Tablet ORAL lisinopril 40 MG Oral TabletOriginal Medicationlisinopril 40 MG Oral Tablet *Reorder from [employer] for eRx and Interaction Alerts* 6 Not-Takin g aspirin 81 MG Oral Tablet ORAL aspirin 81 MG Oral TabletOriginal Medicationaspirin 81 MG Oral Tablet *Reorder from [employer] for eRx and Interaction Alerts* 6 Not-Takin g Basaglar KwikPen 100 UNIT/ML as directed Subcutaneous Active Furosemide 40 MG 1 tablet Orally Once a day Active Encounters Encounter Location Date Provider Diagnosis [address] [phone] 08/11/2024 PEDRITO MUÑIZ Other hammer toe(s) (acquired), right foot M20.41 ; Tinea unguium B35.1 ; Other hammer toe(s) (acquired), left foot M20.42 ; Pain in right toe(s) M79.674 ; Pain in left toe(s) M79.675 ; Unspecified atherosclerosis of [place] arteries of extremities, bilateral legs I70.203 ; [...] (ICD-10 - M79.675) 08/11/2024 Unspecified atherosclerosis of [place] arteries of extremities, bilateral legs (ICD-10 - [...] OTC and prescription treatments. Unspecified atherosclerosis of [place] arteries of extremities, bilateral legs Patient educated [...] Reason: Provider Name:TONY KEENE, 01/19/2025 09:50:00 AM, [address] [place] [address], [id number], Progress Notes * WALKER KULKARNI LDOB:[birth year] (79 yo F)Acc No.[id number]:08/11/2024 Patient: WALKER ISAAC Provider: Lanie MUÑIZ :1945 A ge:79 Y S ex:Female Date:08/11/2024 Address:[address] [place], [place] [phone] Subjective: * Chief Complaints: * 1 . [...] Patient denies c hest pain, history of [place], irregular heartbeat. M usculoskeletal: Patient complains of [...] sodium 2 MG Oral Tablet *Reorder from [employer] for eRx and Interaction Alerts*, Taking calcium carbonate 600 MG / ergocalciferol 200 UNT Oral Tablet ORAL , Notes to Pharmacist: calcium carbonate 600 MG / ergocalciferol 200 UNT Oral TabletOriginal Medicationcalcium carbonate 600 MG / ergocalciferol 200 UNT Oral Tablet *Reorder from [employer] for eRx and Interaction Alerts*, Taking metformin hydrochloride 500 MG Oral Tablet ORAL , Notes to Pharmacist: metformin hydrochloride 500 MG Oral TabletOriginal Medicationmetformin hydrochloride 500 MG Oral Tablet *Reorder from [employer] for eRx and Interaction Alerts*, Taking sertraline 100 MG Oral Tablet ORAL , Notes to Pharmacist: sertraline 100 MG Oral TabletOriginal Medicationsertraline 100 MG Oral Tablet *Reorder from [facility] for eRx and Interaction Alerts*, Not-Taking Lisinopril 40 MG Oral Tablet ORAL , Notes to Pharmacist: lisinopril 40 MG Oral TabletOriginal Medicationlisinopril 40 MG Oral Tablet *Reorder from [facility] for eRx and Interaction Alerts*, Not-Taking Anastrozole 1 MG Oral Tablet ORAL , Notes to Pharmacist: anastrozole 1 MG Oral TabletOriginal Medicationanastrozole 1 MG Oral Tablet *Reorder from [facility] for eRx and Interaction Alerts*, Not-Taking aspirin 81 MG Oral Tablet ORAL , Notes to Pharmacist: aspirin 81 MG Oral TabletOriginal Medicationaspirin 81 MG Oral Tablet *Reorder from [facility] for eRx and Interaction Alerts*, Not-Taking atorvastatin 40 MG Oral Tablet ORAL , Notes to Pharmacist: atorvastatin 40 MG Oral TabletOriginal Medicationatorvastatin 40 MG Oral Tablet *Reorder from [facility] for eRx and Interaction Alerts*, Not-Taking ferrous sulfate 325 MG Oral Tablet ORAL , Notes to Pharmacist: ferrous sulfate 325 MG Oral TabletOriginal Medicationferrous sulfate 325 MG Oral Tablet *Reorder from [facility] for eRx and Interaction Alerts* * [...] M79.675 6 . U nspecified atherosclerosis of [place] arteries of extremities, bilateral legs - I70.203 [...] were emphasized. 3. U nspecified atherosclerosis of [place] arteries of extremities, bilateral legs Notes: Patient [...] LESIONS, 2 TO 4, Modifiers: Q8 , 24719 DEBRIDE NAIL, 6 OR MORE, Modifiers: 59 , Q8 * Follow Up: 3 Months * Billing Information: * Visit Code: * Procedure Codes: 82419 TRIM SKIN LESIONS, 2 TO 4. Modifiers: Q8 24975 DEBRIDE NAIL, 6 OR MORE. Modifiers: 59, Q8 * D MECHANICAL METER TESTER Sign off status: Completed true * Provider: Lanie MUÑIZ Date: Generated for Rahul samano/Mignon/Jevon on: 0 01/10/2025 06:37 PM CDT History and Physical Notes * [...]
--- OUTSIDE RECORDS SUMMARY | 2025-01-10 18:37 | XMS_ITS ---
Author Organization [facility] Address [address] [place], [place] [id number] Care Team Providers Care Flight Control Tower Operator Name Role Phone JOVANNI CAST Unavailable [phone] Rosalio Poolel Unavailable Unavailable Allergies Allergen (clinical drug ingredient) Drug/Non Drug [...] sulfate 325 MG Oral Tablet *Reorder from [employer] for eRx and Interaction Alerts* 6 Bernardo-Cj perez sertraline 100 MG Oral Tablet ORAL sertraline 100 MG Oral TabletOriginal Medicationsertraline 100 MG Oral Tablet *Reorder from [employer] for eRx and Interaction Alerts* 6 Active metformin hydrochloride 500 MG Oral Tablet ORAL metformin hydrochloride 500 MG Oral TabletOriginal Medicationmetformin hydrochloride 500 MG Oral Tablet *Reorder from [employer] for eRx and Interaction Alerts* 6 Active Lisinopril 40 MG Oral Tablet ORAL lisinopril 40 MG Oral TabletOriginal Medicationlisinopril 40 MG Oral Tablet *Reorder from [facility] for eRx and Interaction Alerts* 6 Not-Takin g aspirin 81 MG Oral Tablet ORAL aspirin 81 MG Oral TabletOriginal Medicationaspirin 81 MG Oral Tablet *Reorder from [facility] for eRx and Interaction Alerts* 6 Not-Takin g Anastrozole 1 MG Oral Tablet ORAL anastrozole 1 MG Oral TabletOriginal Medicationanastrozole 1 MG Oral Tablet *Reorder from [facility] for eRx and Interaction Alerts* 6 Not-Takin g calcium carbonate 600 MG / ergocalciferol 200 UNT Oral Tablet ORAL calcium carbonate 600 MG / ergocalciferol 200 UNT Oral TabletOriginal Medicationcalcium carbonate 600 MG / ergocalciferol 200 UNT Oral Tablet *Reorder from [facility] for eRx and Interaction Alerts* 6 Active atorvastatin 40 MG Oral Tablet ORAL atorvastatin 40 MG Oral TabletOriginal Medicationatorvastatin 40 MG Oral Tablet *Reorder from [facility] for eRx and Interaction Alerts* 6 Not-Takin g Amiodarone HCl 200 MG 1 tablet Orally Once a day Active Basaglar KwikPen 100 UNIT/ML as directed Subcutaneous Active Warfarin Sodium 2 MG Oral Tablet ORAL warfarin sodium 2 MG Oral TabletOriginal Medicationwarfarin sodium 2 MG Oral Tablet *Reorder from [facility] for eRx and Interaction Alerts* 6 Active Furosemide 40 MG 1 tablet Orally Once a day Active Iron 325 (65 Fe) MG 1 tablet Orally Three times a Week Active Magnesium 400 MG as directed Orally Active Levothyroxine Sodium 100 MCG 1 tablet in the morning on an empty stomach Orally Once a day Active Encounters Encounter Location Date Provider Diagnosis [facility] [address] [place], [place] [id number] 11/03/2024 JOVANNI SNOOK Tinea unguium B35.1 ; Pain in right foot M79.671 ; Pain in left foot M79.672 ; Atherosclerosis of [place]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 Provider Name:TONY KEENE, 01/19/2025 09:50:00 AM, [address] [place] [address], [phone], Progress Notes * WALKER KULKARNI LDOB:[birth year] (79 yo F)Acc No.[id number]:11/03/2024 Patient: Jose J ALBERTOWALKER Hi Lynnette Provider: Danna Cast DPM :1945 A ge:79 Y S ex:Female Date:11/03/2024 Address:[address] [place] [address] Subjective: * Chief Complaints: * P atient presents for at-risk foot care . The [...] sodium 2 MG Oral Tablet *Reorder from [employer] for eRx and Interaction Alerts*calcium carbonate 600 MG / ergocalciferol 200 UNT Oral Tablet ORAL , Notes to Pharmacist: calcium carbonate 600 MG / ergocalciferol 200 UNT Oral TabletOriginal Medicationcalcium carbonate 600 MG / ergocalciferol 200 UNT Oral Tablet *[facility]*metformin hydrochloride 500 MG Oral Tablet ORAL , Notes to Pharmacist: metformin hydrochloride 500 MG Oral TabletOriginal Medicationmetformin hydrochloride 500 MG Oral Tablet *Reorder from [employer] for eRx and Interaction Alerts*sertraline 100 MG Oral Tablet ORAL , Notes to Pharmacist: sertraline 100 MG Oral TabletOriginal Medicationsertraline 100 MG Oral Tablet *Reorder from [facility] for eRx and Interaction Alerts*Taking Trelegy Ellipta [...] sodium 2 MG Oral Tablet *Reorder from [facility] for eRx and Interaction Alerts*Taking calcium carbonate 600 MG / ergocalciferol 200 UNT Oral Tablet ORAL , Notes to Pharmacist: calcium carbonate 600 MG / ergocalciferol 200 UNT Oral TabletOriginal Medicationcalcium carbonate 600 MG / ergocalciferol 200 UNT Oral Tablet *Reorder from [facility] for eRx and Interaction Alerts*Taking metformin hydrochloride 500 MG Oral Tablet ORAL , Notes to Pharmacist: metformin hydrochloride 500 MG Oral TabletOriginal Medicationmetformin hydrochloride 500 MG Oral Tablet *Reorder from [facility] for eRx and Interaction Alerts*Taking sertraline 100 MG Oral Tablet ORAL , Notes to Pharmacist: sertraline 100 MG Oral TabletOriginal Medicationsertraline 100 MG Oral Tablet *Reorder from [facility] for eRx and Interaction Alerts*Not-TakingLisinopril 40 MG Oral Tablet ORAL , Notes to Pharmacist: lisinopril 40 MG Oral TabletOriginal Medicationlisinopril 40 MG Oral Tablet *Reorder from [facility] for eRx and Interaction Alerts*Anastrozole 1 MG Oral Tablet ORAL , Notes to Pharmacist: anastrozole 1 MG Oral TabletOriginal Medicationanastrozole 1 MG Oral Tablet *Reorder from [facility] for eRx and Interaction Alerts*aspirin 81 MG Oral Tablet ORAL , Notes to Pharmacist: aspirin 81 MG Oral TabletOriginal Medicationaspirin 81 MG Oral Tablet *Reorder from [facility] for eRx and Interaction Alerts*atorvastatin 40 MG Oral Tablet ORAL , Notes to Pharmacist: atorvastatin 40 MG Oral TabletOriginal Medicationatorvastatin 40 MG Oral Tablet *Reorder from [facility] for eRx and Interaction Alerts*ferrous sulfate 325 MG Oral Tablet ORAL , Notes to Pharmacist: ferrous sulfate 325 MG Oral TabletOriginal Medicationferrous sulfate 325 MG Oral Tablet *Reorder from [facility] for eRx and Interaction Alerts*Medication List reviewed and reconciled with the patientNot-Taking Lisinopril 40 MG Oral Tablet ORAL , Notes to Pharmacist: lisinopril 40 MG Oral TabletOriginal Medicationlisinopril 40 MG Oral Tablet *Reorder from [facility] for eRx and Interaction Alerts*Not-Taking Anastrozole 1 MG Oral Tablet ORAL , Notes to Pharmacist: anastrozole 1 MG Oral TabletOriginal Medicationanastrozole 1 MG Oral Tablet *Reorder from [facility] for eRx and Interaction Alerts*Not-Taking aspirin 81 MG Oral Tablet ORAL , Notes to Pharmacist: aspirin 81 MG Oral TabletOriginal Medicationaspirin 81 MG Oral Tablet *Reorder from [facility] for eRx and Interaction Alerts*Not-Taking atorvastatin 40 MG Oral Tablet ORAL , Notes to Pharmacist: atorvastatin 40 MG Oral TabletOriginal Medicationatorvastatin 40 MG Oral Tablet *Reorder from [facility] for eRx and Interaction Alerts*Not-Taking ferrous sulfate 325 MG Oral Tablet ORAL , Notes to Pharmacist: ferrous sulfate 325 MG Oral TabletOriginal Medicationferrous sulfate 325 MG Oral Tablet *Reorder from [facility] for eRx and Interaction Alerts*Medication List reviewed [...] - M79.672 4 . A therosclerosis of [place] arteries of extremities with intermittent claudication, bilateral [...] 1 1055 TRIM SKIN LESION, Modifiers: Q8 16923 DEBRIDE NAIL, 6 OR MORE, Modifiers: 59 , Q8 * Follow Up: 1 0 - 12 weeks (Reason: At-Risk Foot care, sooner if problems develop.) * Billing Information: * Visit Code: * Procedure Codes: 99849 TRIM SKIN LESION. Modifiers: Q8 82347 DEBRIDE NAIL, 6 OR MORE. Modifiers: 59, Q8 * ING MACHINE OPERATOR BED Sign off status: Completed true * Provider: Danna Cast DPM Date: 0 11/03/2024 Generated for Rahul samano/Mignon/Jevon on: 0 01/10/2025 [...]
--- OUTSIDE RECORDS SUMMARY | 2025-01-10 18:37 | XMS_ITS | Clinical Summary ---
Author Organization Unknown Care Team Providers Care Human Resources Office Manager Name Role Phone HOMEROGUANAKITO Kumar Unavailable Unavailable MICHELLE PHYSICAL THERAPIST, ANGELICA Unavailable Unavailable O'CHANTALE PE MANAGER, SALLY chavira Unavailable MAINOR STRE[address] COUNSELOR, JAVAN Unavailable Unavailable AKLIA REGISTERED NURSE, CESAR Unavailable Unavailable Payers Payer Name Policy Type Policy Number Effective Date Expira tion Date MEDICARE [place] - [facility] [id number] Problems Condition Name Condition Details Condition Category [...] 10-19 00:00: 00 ATHSCL HEART DISEASE OF [place] CORONARY ARTERY W/O ANG PCTRS Active 10-19 [...] OF NICOTINE DEPENDENCE Active 10-19 00:00: 00 ASSISTED (CURRENT) USE OF ANTICOAGULAN TS Active 10-19 00:00: 00 DEALER ACCOUNTS INVESTIGATOR (CURRENT) USE OF INSULIN Active 10-19 00:00: 00 DEALER ACCOUNTS INVESTIGATOR (CURRENT) USE OF ORAL HYPOGLYCEMIC DRUGS Active 10-19 00:00: 00 ASSISTED (CURRENT) USE OF INHALED STEROIDS Active 10-19 00:00: 00 HORMONE REPLACEMENT THERAPY Active 10-19 00:00: 00 OTHER ASSISTED (CURRENT) DRUG THERAPY Active 10-19 00:00: 00 [...] on aerosol inhaler 06-29 00:00: 00 Yes [id number] COPD 2 puff EVERY 4 HOURS 2 puff EVERY 4 HOURS (route: inhalation ) Med Classific ation: Respirato ry Therapy Agents amiodarone 200 mg tablet 06-29 00:00: 00 Yes [id number] HEART HEALTH 1 tablet ONCE DAILY 1 tablet ONCE DAILY (route: oral) Med Classific ation: Cardiovas cular Therapy Agents aspirin 81 mg tablet,[place] y[place] release 06-29 00:00: 00 08-11 23:59 :00 No [id number] BLOOD CLOT PREVENTION 1 tablet ONCE DAILY 1 tablet ONCE DAILY (route: oral) Med Classific ation: Hematolog ical Agents atorvastati n 40 mg tablet 06-29 00:00: 00 08-01 23:59 :00 No [id number] HYPERCHOLES TEROLEMIA 1 tablet ONCE DAILY 1 tablet ONCE DAILY (route: oral) Med Classific ation: Cardiovas cular Therapy Agents Basaglar KwikPen U-100 Insulin 100 unit/mL (3 mL) [facility] 06-29 00:00: 00 Yes [id number] DM 55 unit AT BEDTIME 55 unit AT BEDTIME (route: subcutaneo ) Med Classific ation: Endocrine Calcium-600 600 mg (as calcium carbonate 1,500 mg) tablet 06-29 00:00: 00 Yes [id number] SUPPLEMENT 1 tablet ONCE DAILY 1 tablet ONCE DAILY (route: oral) Med Classific ation: Electroly te Balance-N utritiona l Products fluticasone propionate 50 mcg/actuati on nasal spray,suspe nsion 06-29 00:00: 00 Yes [id number] ALLERGIC RHINITIS 1 spray ONCE DAILY 1 spray ONCE DAILY (route: nasal) Med Classific ation: Respirato ry Therapy Agents furosemide 40 mg tablet 06-29 00:00: 00 09-05 23:59 :00 No [id number] EDEMA 1 tablet ONCE DAILY 1 tablet ONCE DAILY (route: oral) Med Classific ation: Cardiovas cular Therapy Agents ipratropium 0.5 mg-albutero l 3 mg (2.5 mg base)/3 mL nebulizatio n soln 06-29 00:00: 00 Yes [id number] COPD 1 mL EVERY 4 HOURS 1 mL EVERY 4 HOURS (route: inhalation ) Med Classific ation: Respirato ry Therapy Agents levothyroxi ne 125 mcg tablet 06-29 00:00: 00 10-04 23:59 :00 No [id number] HYPERTHYROI DISM 1 tablet ONCE DAILY 1 tablet ONCE DAILY (route: oral) Med Classific ation: Endocrine magnesium 500 mg (as magnesium oxide) tablet 06-29 00:00: 00 Yes [id number] HYPOMAGNESE DAVIS 2 tablet ONCE DAILY 2 tablet ONCE DAILY (route: oral) Med Classific ation: Electroly te Balance-N utritiona l Products metformin 500 mg tablet 06-29 00:00: 00 Yes [id number] DM 1 tablet TWICE DAILY 1 tablet TWICE DAILY (route: oral) Med Classific ation: Endocrine nystatin 100,000 unit/gram topical cream 06-29 00:00: 00 Yes [id number] GAULDING Per instruc tions TWICE DAILY Per instructio ns TWICE DAILY (route: topical) Med Classific ation: Dermatolo gical nystatin 100,000 unit/gram topical powder 06-29 00:00: 00 Yes [id number] GAULDING Per instruc tions TWICE DAILY Per instructio ns TWICE DAILY (route: topical) Med Classific ation: Dermatolo gical oxygen gas for inhalation 06-29 00:00: 00 08-11 23:59 :00 No [id number] COPD 2 Liter AT BEDTIME 2 Liter AT BEDTIME (route: inhalation ) Med Classific ation: Medical Supplies and Durable Medical Equipment (DME) pantoprazol e 40 mg tablet,[place] yed release 06-29 00:00: 00 08-11 23:59 :00 No [id number] GERD 1 tablet ONCE DAILY 1 tablet ONCE DAILY (route: oral) Med Classific ation: Gastroint estinal Therapy Agents sertraline 100 mg tablet 06-29 00:00: 00 10-04 23:59 :00 No [id number] DEPRESSION 0.5 tablet ONCE DAILY 0.5 tablet ONCE DAILY (route: oral) Med Classific ation: Central Nervous System Agents spironolact one 25 mg tablet 06-29 00:00: 00 Yes [id number] HYPERTENSIO N 1 tablet ONCE DAILY 1 tablet ONCE DAILY (route: oral) Med Classific ation: Cardiovas cular Therapy Agents tramadol 50 mg tablet 06-29 00:00: 00 Yes [id number] PAIN 1 tablet EVERY 6 HOURS PRN 1 tablet EVERY 6 HOURS PRN (route: oral) Med Classific ation: Analgesic , Anti-infl ammatory or Antipyret ic Trelegy Ellipta 200 mcg-62.5 mcg-25 mcg powder for inhalation 06-29 00:00: 00 Yes [id number] COPD 1 inhalat ion ONCE DAILY 1 inhalation ONCE DAILY (route: inhalation ) Med Classific ation: Respirato ry Therapy Agents triamcinolo ne acetonide 0.1 % topical ointment 06-29 00:00: 00 Yes [id number] ITCHING Per instruc tions TWICE DAILY Per instructio ns TWICE DAILY (route: topical) Med Classific ation: Dermatolo gical Ventolin HFA 90 mcg/actuati on aerosol inhaler 06-29 00:00: 00 Yes [id number] COPD 2 puff EVERY 4 HOURS 2 puff EVERY 4 HOURS (route: inhalation ) Med Classific ation: Respirato ry Therapy Agents Vitamin D3 50 mcg (2,000 unit) tablet 06-29 00:00: 00 Yes [id number] SUPPLEMENT 1 tablet ONCE DAILY 1 tablet ONCE DAILY (route: oral) Med Classific ation: Electroly te Balance-N utritiona l Products warfarin 4 mg tablet 06-29 00:00: 00 12-12 23:59 :00 No [id number] BLOOD CLOT PREVENTION 1 tablet DIRECTED 1 tablet DIRECTED (route: oral) Med Classific ation: Hematolog ical Agents warfarin 5 mg tablet 06-29 00:00: 00 12-12 23:59 :00 No [id number] BLOOD CLOT PREVENTION 1 tablet DIRECTED 1 tablet DIRECTED (route: oral) Med Classific ation: Hematolog ical Agents Zyrtec 10 mg tablet 06-29 00:00: 00 Yes [id number] ALLERGIES 1 tablet ONCE DAILY 1 tablet ONCE DAILY (route: oral) Med Classific ation: Respirato ry Therapy Agents ferrous sulfate 325 mg (65 mg iron) tablet 2023-10 00:00: 00 01-05 23:59 :00 No [id number] ANEMIA 1 tablet EVERY OTHER DAY 1 tablet EVERY OTHER DAY (route: oral) Med Classific ation: Electroly te Balance-N utritiona l Products oxygen gas for inhalation 2023-10 0 00:00: 00 Yes [id number] SHORTNESS OF BREATH Per instruc tions DIRECTED Per instructio ns DIRECTED (route: inhalation ) Alternate Route: O2 - NASAL CANNULA. Med Classific ation: Medical Supplies and Durable Medical Equipment (DME) pantoprazol e 40 mg tablet,[place] yed release 2023-10 00:00: 00 Yes [id number] GERD 1 tablet TWICE DAILY 1 tablet TWICE DAILY (route: oral) Med Classific ation: Gastroint estinal Therapy Agents Lasix 40 mg tablet 2023-10 00:00: 00 12-12 23:59 :00 No [id number] FLUID RETENTION 1.5 tablet ONCE DAILY 1.5 tablet ONCE DAILY (route: oral) Med Classific ation: Cardiovas cular Therapy Agents sucralfate 1 gram tablet 2023-10 00:00: 00 Yes [id number] ANEMIA 1 tablet 4 TIMES DAILY 1 tablet 4 TIMES DAILY (route: oral) Med Classific ation: Gastroint estinal Therapy Agents levothyroxi ne 137 mcg tablet 2023-10 00:00: 00 Yes [id number] HYPOTHYROID ISM 1 tablet ONCE DAILY 1 tablet ONCE DAILY (route: oral) Med Classific ation: Endocrine sertraline 100 mg tablet 2023-10 00:00: 00 Yes [id number] DEPRESSION 1 tablet ONCE DAILY 1 tablet ONCE DAILY (route: oral) Med Classific ation: Central Nervous System Agents warfarin 4 mg tablet 12-12 00:00: 00 12-19 23:59 :00 No [id number] PREVENT CLOTS 1 tablet DIRECTED 1 tablet DIRECTED (route: oral) Med Classific ation: Hematolog ical Agents warfarin 5 mg tablet - 00:00: 00 12-19 23:59 :00 No [id number] PREVENT CLOTS 1 tablet DIRECTED 1 tablet DIRECTED (route: oral) Med Classific ation: Hematolog ical Agents Lasix 80 mg tablet 2-24 00:00: 00 12-13 23:59 :00 No [id number] FLUID RETENTION 1 tablet ONCE DAILY 1 tablet ONCE DAILY (route: oral) Med Classific ation: Cardiovas cular Therapy Agents Lasix 40 mg tablet 12-19 00:00: 00 Yes [id number] EDEMA 1.5 tablet ONCE DAILY 1.5 tablet ONCE DAILY (route: oral) Med Classific ation: Cardiovas cular Therapy Agents warfarin 5 mg tablet 12-19 00:00: 00 12-26 23:59 :00 No [id number] PREVENT CLOTS 1 tablet ONCE DAILY 1 tablet ONCE DAILY (route: oral) Med Classific ation: Hematolog ical Agents ferrous sulfate 325 mg (65 mg iron) tablet 01-05 00:00: 00 Yes [id number] ANEMIA 1 tablet 3 TIMES DAILY 1 tablet 3 TIMES DAILY (route: oral) Med Classific ation: Electroly te Balance-N utritiona l Products warfarin 5 mg tablet 01-05 00:00: 00 Yes [id number] PREVENT CLOTS 1 tablet ONCE DAILY 1 [...] SYMPTOMS OF ANXIETY.] Future [facility] INSTRUCT PATIENT/CAREGIVER ON TYPE 2 [...] LOW BLOOD SUGAR.] Future Scheduled Test HOME [facility] NURSE WILL INSTRUCT AND VERIFY APPROPRIATE STEPS [...] TIMES PER DAY.] Future Scheduled [facility] WILL INSTRUCT AND VERIFY APPROPRIATE [...] BY THE PHYSICIAN.] Future Scheduled Test HOME [facility] NURSE TO INSTRUCT ON CHRONIC KIDNEY DISEASE [...] WILL BE ESTABLISHED THAT MEETS ALL PATIENT'S CUSTODIAL NEEDS AND COUNTER SIGNED BY PHYSICIAN. Goal [...] RN MARIUM CBC AND TOOK LAB TO [facility]. PTNT EDUCATED ON COPD MANAGMENT AND NEW MEDICATION CHANGES AND WHEN TO REPORT SIGNS/SYMPTOMS OF BLEEDING TO PCP. PTNT VERBALIZED GOOD UNDERSTANDING OF ALL EDUCATION PROVIDED. HAS GI APPT 01/05 AND PCP APPT ON 01/06</paragraph> Encounters Start Date/Time End Date/Time Encounter Type Admission Type Attending [facility] Care Department Encounter ID Discharge Date Discharge Status Discharge Condition Discharge Reason Percent Goals Met 2024-07-01 00:00:00 2025-02-25 00:00:00 Outpatient RECERTIFIC ATCESAR AGGARWAL [facility] [id number] 11.43
--- OUTSIDE RECORDS SUMMARY | 2025-01-10 18:37 | XMS_ITS | Encounter Summary ---
Author Organization [facility] Healthcare Address [address] [place] [address] Care Team Providers Care Auto Clutch Rebuilder Name Role Phone Hema Castaneda MD Unavailable [phone] Colleen Bain MD Unavailable [phone] Rosette Espinoza MD Unavailable [phone] Lopez Pool MD Primary Care Provider [phone] Jacqueline Schaeffer RN Unavailable Unavailable Jenni Hartley RN Unavailable Unavailable Anat Hutchison Unavailable Unavailable Encounter Details Date Type Department Care Team (Late st Contact Info) Description 07/01/2022 Telephone [facility] Transplant Heart [phone] [place] [address] Jennifer Acuna Social History Tobacco [...] How often do you attend chur or congregational services? Never 03/14/2022 Do you belong to any clubs o r organizations such as temple groups, unions, fraternal or athletic groups, or [...] place to sleep or slept in a intermediate (including now)? 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 Not on file Not on file Not on file documented as of this encounter Plan of Treatment Upcoming Encounters Date Type Department Care Team (Latest Contact Info) Description 02/10/2025 7:30 AM CDT Hospital Encounter [facility] [address] [place] [address] Fred SullivanOutsole Cementer Machine, [address] [place], [place] [id number] Patricia Smith MD [address] [employer] [address] [id number] Atrial fibrillation, unspecified type (HCC) 02/10/2025 7:30 AM CDT - 02/10/2025 8:05 AM CDT Surgery [facility] Heart [facility] [address] [id number] Patricia Smith MD [address] [id number] [employer] documented as of this encounter Visit Diagnoses Not on filedocumented in this encounter Care Teams Auto Clutch Rebuilder Relationship Specialty Start Date End Date Lopez Pool MD PCP - General Family Medicine 03/18/22 Hema Castaneda MD Consulting Physician Cardiology 01/11/19 Colleen Bain MD Referring Physician Endocrinology Diabetes & Metabolism 04/07/19 Rosette Espinoza MD Referring Physician Cardiology 04/07/19 Jacqueline Schaeffer, [employer] field coordinator Failure Coordinator Cardiology 07/13/24 Jenni Hartley, RN Registered Nurse 07/13/24 08/01/24 Anat Hutchison 07/13/24 documented as of this encounter
--- OUTSIDE RECORDS SUMMARY | 2025-01-10 18:37 | XMS_ITS | Encounter Summary ---
Author Organization [facility] [employer] [facility] Address [address] [place] [address] Phone Care Team Providers Care Physician Relations Manager Name Role Phone Elmer Wallace MD Primary Care Provider Hema Castaneda MD Unavailable [phone] Colleen Bain MD Unavailable [phone] Rosette Espinoza MD Unavailable Jenni Hartley RN Unavailable Unavailable Meenu Jones NP Unavailable [phone] Lopez Pool MD Primary Care Provider [phone] Jacqueline Schaeffer RN Unavailable Unavailable Jenni Hartley RN Unavailable Unavailable Anat Hutchison Unavailable Unavailable Encounter Details Date Type Department Care Team (Late st Contact Info) Description 12/28/2017 Orders Only [facility] CAR CLINCONV ProviderLexi MD [address] [place] [address] Social History Tobacco Use Types Packs/Day Years Used Date Smoking Tobacco: Former Comments Unknown Sex and Gender Information Value Date Recorded Sex Assigned at Not on file Legal Sex Female 3:00 AM MANAGER OF 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 CONTENT Gender Identity Female 07/13/2018 9:28 AM CDT Sexual Orientation Not on file documented as of this encounter Plan of Treatment Upcoming Encounters Date Type Department Care Team (Latest Contact Info) Description 02/10/2025 7:30 AM CDT Hospital Encounter [facility] 1 [place] [phone] Nate, Foam Gun Operator, [address] [place] [address] Patricia Smith MD [address] [place] [address] Atrial fibrillation, unspecified type (HCC) 02/10/2025 7:30 AM CDT - 02/10/2025 8:05 AM CDT Surgery [facility] 1 [place] [phone] Patricia Smith MD [address] [place], [place] [id number] CARDIOVERSION documented as of this encounter Procedures [...] Narrative 12/28/2017 Ordered by an unspecified provider. [facility] Provider CV CARDIAC SERVICES PROCE DURES Final Result * CARDIOLOGY REPORT (12/28/2017) Anatomical Region Laterality Modality Other Narrative 12/28/2017 Ordered by an unspecified provider. [facility] Provider CV CARDIAC SERVICES PROCE DURES Final Result * CARDIOLOGY REPORT (12/28/2017) Anatomical Region Laterality Modality Other Narrative 12/28/2017 Ordered by an unspecified provider. [facility] Provider CV CARDIAC SERVICES PROCE DURES Final Result * CARDIOLOGY REPORT (12/28/2017) Anatomical Region Laterality Modality Other Narrative 12/28/2017 Ordered by an unspecified provider. [facility] Provider CV CARDIAC SERVICES PROCE DURES Final Result documented in this encounter Visit Diagnoses Not on filedocumented in this encounter Additional Health Concerns Infection Onset Date Last Indicated Resolved Time COVID: Suspected 03/13/2022 03/13/2022 03/13/2022 6:26 PM CDT documented as of this encounter Care Teams Physician Relations Manager Relationship Specialty Start Date End Date Elmer Wallace MD PCP - General 02/09/17 03/17/22 Lopez Pool MD PCP - General Family Medicine 03/18/22 Hema Castaneda MD Consulting Physician Cardiology 01/11/19 Colleen Bain MD Referring Physician Endocrinology Diabetes & Metabolism 04/07/19 Rosette Espinoza MD Referring Physician Cardiology 04/07/19 Jenni Hartley, RN Registered Nurse Cardiology 04/02/21 04/22/21 Meenu Jones NP Director Human Services Cardiology 04/02/21 04/22/21 Jacqueline Schaeffer, student development specialist Failure Coordinator Cardiology 07/13/24 Jenni Hartley, RN Registered Nurse 07/13/24 08/01/24 Anat Hutchison 07/13/24 documented as of this encounter
--- OUTSIDE RECORDS SUMMARY | 2025-01-10 18:37 | XMS_ITS | Encounter Summary ---
Author Organization [facility] [employer] [facility] Address [address] [place] [address] Phone Care Team Providers Care Die Sinking Machine Operator Name Role Phone Elmer Wallace MD Primary Care Provider Hema Castaneda MD Unavailable [phone] Colleen Bain MD Unavailable [phone] Rosette Espinoza MD Unavailable [phone] Jenni Hartley RN Unavailable Unavailable Meenu Jones NP Unavailable [phone] Lopez Pool MD Primary Care Provider [phone] Jacqueline Schaeffer RN Unavailable Unavailable Jenni Hartley RN Unavailable Unavailable Anat Hutchison Unavailable Unavailable Encounter Details Date Type Department Care Team (Late st Contact Info) Description 11/29/2017 Orders Only [facility] CAR CLINCONV ProviderLexi MD [address] [place] [address] Social History Tobacco Use Types Packs/Day Years Used Date Smoking Tobacco: Former Comments Unknown Sex and Gender Information Value Date Recorded Sex Assigned at Not on file Legal Sex Female 3:00 AM SPECIMEN PROCESSOR Gender Identity Female 07/13/2018 9:28 AM CDT Sexual Orientation Not on file documented as of this encounter Plan of Treatment Upcoming Encounters Date Type Department Care Team (Latest Contact Info) Description 02/10/2025 7:30 AM CDT Hospital Encounter [facility] 1 [place] [phone] Nate, Tongue Carrier, [address] [place] [address] Patricia Smith MD [address] [facility] [address] [place] [address] Atrial fibrillation, unspecified type (HCC) 02/10/2025 7:30 AM CDT - 02/10/2025 8:05 AM CDT Surgery [facility] 1 [place] [address] Patricia Smith MD [address] [facility] [address] [place], [place] [id number] CARDIOVERSION documented as of this encounter Procedures [...] Narrative 11/29/2017 Ordered by an unspecified provider. [facility] Provider CV CARDIAC SERVICES PROCE DURES Final Result * CARDIOLOGY REPORT (11/29/2017) Anatomical Region Laterality Modality Other Narrative 11/29/2017 Ordered by an unspecified provider. [facility] Provider CV CARDIAC SERVICES PROCE DURES Final Result * CARDIOLOGY REPORT (11/29/2017) Anatomical Region Laterality Modality Other Narrative 11/29/2017 Ordered by an unspecified provider. [facility] Provider CV CARDIAC SERVICES PROCE DURES Final Result * CARDIOLOGY REPORT (11/29/2017) Anatomical Region Laterality Modality Other Narrative 11/29/2017 Ordered by an unspecified provider. [facility] Provider CV CARDIAC SERVICES PROCE DURES Final Result * CARDIOLOGY REPORT (11/29/2017) Anatomical Region Laterality Modality Other Narrative 11/29/2017 Ordered by an unspecified provider. [facility] Provider CV CARDIAC SERVICES PROCE DURES Final Result * CARDIOLOGY REPORT (11/29/2017) Anatomical Region Laterality Modality Other Narrative 11/29/2017 Ordered by an unspecified provider. [facility] Provider CV CARDIAC SERVICES PROCE DURES Final Result * CARDIOLOGY REPORT (11/29/2017) Anatomical Region Laterality Modality Other Narrative 11/29/2017 Ordered by an unspecified provider. [facility] Provider CV CARDIAC SERVICES PROCE DURES Final Result * CARDIOLOGY REPORT (11/29/2017) Anatomical Region Laterality Modality Other Narrative 11/29/2017 Ordered by an unspecified provider. [facility] Provider CV CARDIAC SERVICES PROCE DURES Final Result * CARDIOLOGY REPORT (11/29/2017) Anatomical Region Laterality Modality Other Narrative 11/29/2017 Ordered by an unspecified provider. [facility] Provider CV CARDIAC SERVICES PROCE DURES Final Result * CARDIOLOGY REPORT (11/29/2017) Anatomical Region Laterality Modality Other Narrative 11/29/2017 Ordered by an unspecified provider. [facility] Provider CV CARDIAC SERVICES PROCE DURES Final Result * CARDIOLOGY REPORT (11/29/2017) Anatomical Region Laterality Modality Other Narrative 11/29/2017 Ordered by an unspecified provider. [facility] Provider CV CARDIAC SERVICES PROCE DURES Final Result * CARDIOLOGY REPORT (11/29/2017) Anatomical Region Laterality Modality Other Narrative 11/29/2017 Ordered by an unspecified provider. [facility] Provider CV CARDIAC SERVICES PROCE DURES Final Result * CARDIOLOGY REPORT (11/29/2017) Anatomical Region Laterality Modality Other Narrative 11/29/2017 Ordered by an unspecified provider. [facility] Provider CV CARDIAC SERVICES PROCE DURES Final Result * CARDIOLOGY REPORT (11/29/2017) Anatomical Region Laterality Modality Other Narrative 11/29/2017 Ordered by an unspecified provider. Result [facility] Provider CV CARDIAC SERVICES PROCE DURES Final Result documented in this encounter Visit Diagnoses Not on filedocumented in this encounter Additional Health Concerns Infection Onset Date Last Indicated Resolved Time COVID: Suspected 03/13/2022 03/13/2022 03/13/2022 6:26 PM CDT documented as of this encounter Care Teams Die Sinking Machine Operator Relationship Specialty Start Date End Date Elmer Wallace MD PCP - General 02/09/17 03/17/22 Lopez Pool MD PCP - General Family Medicine 03/18/22 Hema Castaneda MD Consulting Physician Cardiology 01/11/19 Colleen Bain MD Referring Physician Endocrinology Diabetes & Metabolism 04/07/19 Rosette Espinoza MD Referring Physician Cardiology 04/07/19 Jenni Hartley, RN Registered Nurse Cardiology 04/02/21 04/22/21 Meenu Jones NP Cleaner Cardiology 04/02/21 04/22/21 Jacqueline Schaeffer, instruments sales representative Failure Coordinator Cardiology 07/13/24 Jenni Hartley, RN Registered Nurse 07/13/24 08/01/24 Anat Hutchison 07/13/24 documented as of this encounter
--- OUTSIDE RECORDS SUMMARY | 2025-01-10 18:37 | XMS_ITS | Encounter Summary ---
Author Organization [facility] [employer] [facility] Address [address] [place] [address] Phone Care Team Providers Care Knitting Machine Mechanic Name Role Phone Elmer Wallace MD Primary Care Provider Hema Castaneda MD Unavailable [phone] Colleen Bain MD Unavailable [phone] Rosette Espinoza MD Unavailable [phone] Jenni Hartley RN Unavailable Unavailable Meenu Jones NP Unavailable [phone] Lopez Pool MD Primary Care Provider [phone] Jacqueline Schaeffer RN Unavailable Unavailable Jenni Hartley RN Unavailable Unavailable Anat Hutchison Unavailable Unavailable Encounter Details Date Type Department Care Team (Late st Contact Info) Description 01/18/2018 [facility] ProviderLexi MD [address] [place] [address] Social History Tobacco Use Types Packs/Day Years Used Date Smoking Tobacco: Former Comments Unknown Sex and Gender Information Value Date Recorded Sex Assigned at Not on file Legal Sex Female 3:00 AM REIMBURSEMENT AUDITOR Gender Identity Female 07/13/2018 9:28 AM CDT Sexual Orientation Not on file documented as of this encounter Plan of Treatment Upcoming Encounters Date Type Department Care Team (Latest Contact Info) Description 02/10/2025 7:30 AM CDT Hospital Encounter [facility] 1 [place] [phone] Nate, Senior Electrical Design Engineer, [address] [place] [address] Patricia Smith MD [address] [place] [address] Atrial fibrillation, unspecified type (HCC) 02/10/2025 7:30 AM CDT - 02/10/2025 8:05 AM CDT Surgery [facility] [place] 1 [place] [phone] Patricia Smith MD [address] [place], [place] [id number] CARDIOVERSION documented as of this encounter Procedures [...] Narrative 01/18/2018 Ordered by an unspecified provider. [facility] Provider MD CV CARDIAC SERVICES PROCE DURES Final Result * CARDIOLOGY REPORT (01/18/2018) Anatomical Region Laterality Modality Other Narrative 01/18/2018 Ordered by an unspecified provider. Result [facility] Provider CV CARDIAC SERVICES PROCE DURES Final Result * CARDIOLOGY REPORT (01/18/2018) Anatomical Region Laterality Modality Other Narrative 01/18/2018 Ordered by an unspecified provider. Result [facility] Provider CV CARDIAC SERVICES PROCE DURES Final Result * CARDIOLOGY REPORT (01/18/2018) Anatomical Region Laterality Modality Other Narrative 01/18/2018 Ordered by an unspecified provider. Result [facility] Provider CV CARDIAC SERVICES PROCE DURES Final Result * CARDIOLOGY REPORT (01/18/2018) Anatomical Region Laterality Modality Other Narrative 01/18/2018 Ordered by an unspecified provider. Result [facility] Provider CV CARDIAC SERVICES PROCE DURES Final Result * CARDIOLOGY REPORT (01/18/2018) Anatomical Region Laterality Modality Other Narrative 01/18/2018 Ordered by an unspecified provider. Result [facility] Provider CV CARDIAC SERVICES PROCE DURES Final Result * CARDIOLOGY REPORT (01/18/2018) Anatomical Region Laterality Modality Other Narrative 01/18/2018 Ordered by an unspecified provider. Result [facility] Provider CV CARDIAC SERVICES PROCE DURES Final Result * CARDIOLOGY REPORT (01/18/2018) Anatomical Region Laterality Modality Other Narrative 01/18/2018 Ordered by an unspecified provider. Result [facility] Provider CV CARDIAC SERVICES PROCE DURES Final Result * CARDIOLOGY REPORT (01/18/2018) Anatomical Region Laterality Modality Other Narrative 01/18/2018 Ordered by an unspecified provider. Result [facility] Provider CV CARDIAC SERVICES PROCE DURES Final Result documented in this encounter Visit Diagnoses Not on filedocumented in this encounter Additional Health Concerns Infection Onset Date Last Indicated Resolved Time COVID: Suspected 03/13/2022 03/13/2022 03/13/2022 6:26 PM CDT documented as of this encounter Care Teams Knitting Machine Mechanic Relationship Specialty Start Date End Date Elmer Wallace MD PCP - General 02/09/17 03/17/22 Lopez Pool MD PCP - General Family Medicine 03/18/22 Hema Castaneda MD Consulting Physician Cardiology 01/11/19 Colleen Bain MD Referring Physician Endocrinology Diabetes & Metabolism 04/07/19 Rosette Espinoza MD Referring Physician Cardiology 04/07/19 Jenni Hartley, RN Registered Nurse Cardiology 04/02/21 04/22/21 Meenu Jones NP Director Water And Waste Services Cardiology 04/02/21 04/22/21 Jacqueline Schaeffer, cement truck driver Failure Coordinator Cardiology 07/13/24 Jenni Hartley, RN Registered Nurse 07/13/24 08/01/24 Anat Hutchison 07/13/24 documented as of this encounter
--- OUTSIDE RECORDS SUMMARY | 2025-01-10 18:37 | XMS_ITS | Encounter Summary ---
Author Organization [facility] [employer] [facility] Address [address] [place] [address] Phone Care Team Providers Care Operations Engineer Name Role Phone Elmer Wallace MD Primary Care Provider Hema Castaneda MD Unavailable [phone] Colleen Bain MD Unavailable [phone] Rosette Espinoza MD Unavailable [phone] Jenni Hartley RN Unavailable Unavailable Meenu Jones NP Unavailable [phone] Lopez Pool MD Primary Care Provider [phone] Jacquelnie Schaeffer RN Unavailable Unavailable Jenni Hartley RN [...] on file Legal Sex Female 3:00 AM EDUCATIONAL SPEECH LANGUAGE CLINICIAN Gender Identity Female 07/13/2018 9:28 AM CDT Sexual Orientation Not on file documented as of this encounter Plan of Treatment Upcoming Encounters Date Type Department Care Team (Latest Contact Info) Description 02/10/2025 7:30 AM CDT Hospital Encounter [facility] 1 [place] [address] Fred SullivanGlass Rolling Machine Operator, [facility] [place] [address] Patricia Smith MD [address] [facility] [address] [place], [place] [id number] Atrial fibrillation, unspecified type (HCC) 02/10/2025 7:30 AM CDT - 02/10/2025 8:05 AM CDT Surgery [facility] 1 [place] [address] Patricia Smith MD [address] [id number] CARDIOVERSION documented as of this encounter Procedures Procedure Name Priority Date/Time Associated Diagnosis Comments PULMONARY FUNCTION TEST (PFT) 09/02/2017 10:23 AM EDUCATIONAL SPEECH LANGUAGE CLINICIAN documented in this encounter Results * PULMONARY FUNCTION TEST (PFT) (09/02/2017 10:23 AM EDUCATIONAL SPEECH LANGUAGE CLINICIAN) Anatomical Region Laterality Modality PFT us Provider Scanning PFT ORDERABLES Final Result documented in this encounter Visit Diagnoses Not on filedocumented in this encounter Additional Health Concerns Infection Onset Date Last Indicated Resolved Time COVID: Suspected 03/13/2022 03/13/2022 03/13/2022 6:26 PM CDT documented as of this encounter Care Teams Operations Engineer Relationship Specialty Start Date End Date Elmer Wallace MD PCP - General 02/09/17 03/17/22 Lopez Pool MD PCP - General Family Medicine 03/18/22 Hema Castaneda MD Consulting Physician Cardiology 01/11/19 Colleen Bain MD Referring Physician Endocrinology Diabetes & Metabolism 04/07/19 Rosette Espinoza MD Referring Physician Cardiology 04/07/19 Jenni Hartley, RN Registered Nurse Cardiology 04/02/21 04/22/21 Meenu Jones NP Product Inspection Supervisor Cardiology 04/02/21 04/22/21 Jacqueline Schaeffer, hogshead hand Failure Coordinator Cardiology 07/13/24 Jenni Hartley, RN Registered Nurse 07/13/24 08/01/24 Anat Hutchison 07/13/24 documented as of this encounter
--- OUTSIDE RECORDS SUMMARY | 2025-01-10 18:37 | XMS_ITS | Encounter Summary ---
Author Organization [facility] Address [address] [place] [address] Phone Care Team Providers Care Ice Cream Mixer Name Role Phone Elmer Wallace MD Primary Care Provider Hema Castaneda MD Unavailable [phone] Collene Bain MD Unavailable [phone] Rosette Espinoza MD Unavailable [phone] Jenni Hartley RN Unavailable Unavailable Meenu Jones NP Unavailable [phone] Lopez Pool MD Primary Care Provider [phone] Jacqueline Schaeffer RN Unavailable Unavailable Jenni Hartley RN Unavailable Unavailable Anat Hutchison Unavailable Unavailable Encounter Details Date Type Department Care Team (Late st Contact Info) Description 02/17/2018 Orders Only [facility] CAR CLINCONV ProviderLexi MD [address] [place] [address] Social History Tobacco Use Types Packs/Day Years Used Date Smoking Tobacco: Former Comments Unknown Sex and Gender Information Value Date Recorded Sex Assigned at Not on file Legal Sex Female 3:00 AM COMMANDING OFFICER GARAGE Gender Identity Female 07/13/2018 9:28 AM CDT Sexual Orientation Not on file documented as of this encounter Plan of Treatment Upcoming Encounters Date Type Department Care Team (Latest Contact Info) Description 02/10/2025 7:30 AM CDT Hospital Encounter [facility] 1 [place] [address] Nate, Farm Products Shipper, [address] [place] [address] Patricia Smith MD [address] [facility] [address] [address] [place] [address] Atrial fibrillation, unspecified type (HCC) 02/10/2025 7:30 AM CDT - 02/10/2025 8:05 AM CDT Surgery [facility] 1 [place] [phone] Patricia Smith MD [address] [facility] [address] [place], [place] [id number] CARDIOVERSION documented as of this encounter Procedures [...] Narrative 02/17/2018 Ordered by an unspecified provider. [facility] Provider MD CV CARDIAC SERVICES PROCE DURES Final Result * CARDIOLOGY REPORT (02/17/2018) Anatomical Region Laterality Modality Other Narrative 02/17/2018 Ordered by an unspecified provider. [facility] Provider MD CV CARDIAC SERVICES PROCE DURES Final Result * CARDIOLOGY REPORT (02/17/2018) Anatomical Region Laterality Modality Other Narrative 02/17/2018 Ordered by an unspecified provider. [facility] Provider CV CARDIAC SERVICES PROCE DURES Final Result * CARDIOLOGY REPORT (02/17/2018) Anatomical Region Laterality Modality Other Narrative 02/17/2018 Ordered by an unspecified provider. [facility] Provider CV CARDIAC SERVICES PROCE DURES Final Result documented in this encounter Visit Diagnoses Not on filedocumented in this encounter Additional Health Concerns Infection Onset Date Last Indicated Resolved Time COVID: Suspected 03/13/2022 03/13/2022 03/13/2022 6:26 PM CDT documented as of this encounter Care Teams Ice Cream Mixer Relationship Specialty Start Date End Date Elmer Wallace MD PCP - General 02/09/17 03/17/22 Lopez Pool MD PCP - General Family Medicine 03/18/22 Hema Castaneda MD Consulting Physician Cardiology 01/11/19 Colleen Bain MD Referring Physician Endocrinology Diabetes & Metabolism 04/07/19 Rosette Espinoza MD Referring Physician Cardiology 04/07/19 Jenni Hartley, RN Registered Nurse Cardiology 04/02/21 04/22/21 Meenu Jones NP Corporate Travel Coordinator Cardiology 04/02/21 04/22/21 Jacqueline Schaeffer, injection molding engineer Failure Coordinator Cardiology 07/13/24 Jenni Hartley, RN Registered Nurse 07/13/24 08/01/24 Anat Hutchison 07/13/24 documented as of this encounter
--- OUTSIDE RECORDS SUMMARY | 2025-01-10 18:37 | XMS_ITS | Encounter Summary ---
Author Organization [facility] [employer] [facility] Address [address] [place] [address] Phone Care Team Providers Care As400 Administrator Name Role Phone Elmer Wallace MD Primary Care Provider Hema Castaneda MD Unavailable [phone] Colleen Bain MD Unavailable [phone] Rosette Espinoza MD Unavailable [phone] Jenni Hartley RN Unavailable Unavailable Meenu Jones NP Unavailable [phone] Lopez Pool MD Primary Care Provider [phone] Jacqueline Schaeffer RN Unavailable Unavailable Jenni Hartley RN Unavailable Unavailable Anat Hutchison Unavailable Unavailable Encounter Details Date Type Department Care Team (Late st Contact Info) Description 01/20/2018 Orders Only [facility] CAR CLINCONV ProviderLexi MD [address] [place] [address] Social History Tobacco Use Types Packs/Day Years Used Date Smoking Tobacco: Former Comments Unknown Sex and Gender Information Value Date Recorded Sex Assigned at Not on file Legal Sex Female 3:00 AM CENTRAL SUPPLY SUPERVISOR Gender Identity Female 07/13/2018 9:28 AM CDT Sexual Orientation Not on file documented as of this encounter Plan of Treatment Upcoming Encounters Date Type Department Care Team (Latest Contact Info) Description 02/10/2025 7:30 AM CDT Hospital Encounter [facility] 1 [place] [phone] Fred SullivanChemical Waste Management Technician, [address] [place] [address] Patricia Smith MD [address] [id number] Atrial fibrillation, unspecified type (HCC) 02/10/2025 7:30 AM CDT - 02/10/2025 8:05 AM CDT Surgery [facility] 1 [place] [address] Patricia Smith MD [address] [id number] CARDIOVERSION documented as of this encounter Procedures [...] documented as of this encounter Care Teams As400 Administrator Relationship Specialty Start Date End Date Elmer Wallace MD PCP - General 02/09/17 03/17/22 Lopez Pool MD PCP - General Family Medicine 03/18/22 Hema Castaneda MD Consulting Physician Cardiology 01/11/19 Colleen Bain MD Referring Physician Endocrinology Diabetes & Metabolism 04/07/19 Rosette Espinoza MD Referring Physician Cardiology 04/07/19 Jenni Hartley, RN Registered Nurse Cardiology 04/02/21 04/22/21 Meenu Jones NP Disbursing Agent Cardiology 04/02/21 04/22/21 Jacqueline Schaeffer, acid pump operator Failure Coordinator Cardiology 07/13/24 Jenni Hartley, RN Registered Nurse 07/13/24 08/01/24 Anat Hutchison 07/13/24 documented as of this encounter
--- OUTSIDE RECORDS SUMMARY | 2025-01-10 18:37 | XMS_ITS | Encounter Summary ---
Author Organization [facility] [employer] [facility] Address [address] [place] [address] Phone Care Team Providers Care Paint Sprayer Sandblaster Name Role Phone Elmer Wallace MD Primary Care Provider Hema Castaneda MD Unavailable [phone] Colleen Bain MD Unavailable [phone] Rosette Espinoza MD Unavailable [phone] Jenni Hartley RN Unavailable Unavailable Meenu Jones NP Unavailable [phone] Lopez Pool MD Primary Care Provider [phone] Jacqueline Schaeffer RN Unavailable Unavailable Jenni Hartley RN Unavailable Unavailable Anat Hutchison Unavailable Unavailable Encounter Details Date Type Department Care Team (Late st Contact Info) Description 11/06/2017 Orders Only [facility] CAR CLINCONV ProviderLexi MD [address] [place] [address] Social History Tobacco Use Types Packs/Day Years Used Date Smoking Tobacco: Never Assessed Comments Unknown Sex and Gender Information Value Date Recorded Sex Assigned at Not on file Legal Sex Female 3:00 AM BUILDING PERFORMANCE CONSULTANT Gender Identity Female 07/13/2018 9:28 AM CDT Sexual Orientation Not on file documented as of this encounter Plan of Treatment Upcoming Encounters Date Type Department Care Team (Latest Contact Info) Description 02/10/2025 7:30 AM CDT Hospital Encounter [facility] 1 [place] [phone] Nate, Solutions Operator, [address] [place] [address] Patricia Smith MD [address] [facility] [address] [place] [address] Atrial fibrillation, unspecified type (HCC) 02/10/2025 7:30 AM CDT - 02/10/2025 8:05 AM CDT Surgery [facility] 1 [place] [phone] Patricia Smith MD [address] [place], [place] [id number] CARDIOVERSION documented as of this encounter Procedures [...] Narrative 11/06/2017 Ordered by an unspecified provider. [facility] Provider CV CARDIAC SERVICES PROCE DURES Final Result * CARDIOLOGY REPORT (11/06/2017) Anatomical Region Laterality Modality Other Narrative 11/06/2017 Ordered by an unspecified provider. Historical Provider CV CARDIAC SERVICES PROCE DURES Final Result * CARDIOLOGY REPORT (11/06/2017) Anatomical Region Laterality Modality Other Narrative 11/06/2017 Ordered by an unspecified provider. [facility] Provider CV CARDIAC SERVICES PROCE DURES Final Result * CARDIOLOGY REPORT (11/06/2017) Anatomical Region Laterality Modality Other Narrative 11/06/2017 Ordered by an unspecified provider. [facility] Provider CV CARDIAC SERVICES PROCE DURES Final Result documented in this encounter Visit Diagnoses Not on filedocumented in this encounter Additional Health Concerns Infection Onset Date Last Indicated Resolved Time COVID: Suspected 03/13/2022 03/13/2022 03/13/2022 6:26 PM CDT documented as of this encounter Care Teams Paint Sprayer Sandblaster Relationship Specialty Start Date End Date Elmer Wallace MD PCP - General 02/09/17 03/17/22 Lopez Pool MD PCP - General Family Medicine 03/18/22 Hema Castaneda MD Consulting Physician Cardiology 01/11/19 Colleen Bain MD Referring Physician Endocrinology Diabetes & Metabolism 04/07/19 Rosette Espinoza MD Referring Physician Cardiology 04/07/19 Jenni Hartley, RN Registered Nurse Cardiology 04/02/21 04/22/21 Meenu Jones NP Technician Inventory Specialist Cardiology 04/02/21 04/22/21 Jacqueline Schaeffer, product demonstrator Failure Coordinator Cardiology 07/13/24 Jenni Hartley, RN Registered Nurse 07/13/24 08/01/24 Anat Hutchison 07/13/24 documented as of this encounter
--- OUTSIDE RECORDS SUMMARY | 2025-01-10 18:37 | XMS_ITS | Encounter Summary ---
Author Organization [facility] Address [facility] [place] [address] Care Team Providers Care Instrument Repair Supervisor Name Role Phone Elmer Wallace MD Primary Care Provider [phone] Lopez Pool MD Primary Care Provider [phone] Lopez Pool MD Unavailable [phone] Encounter Details Date Type Department Care Team (Late st Contact Info) Description 03/26/2019 Abstract SFL CONVERSION [address] [place] [address] , Generic Conversion, Social History Tobacco Use Types Packs/Day Years Used Date Smoking Tobacco: Never Assessed Comments Unknown Sex and Gender Information Value Date Recorded Sex Assigned at Female 11/01/2024 8:23 AM SOCIAL MEDIA DIRECTOR Legal Sex Female 10:48 PM SOCIAL MEDIA DIRECTOR Gender Identity Not on file Sexual Orientation Not on file documented as of this encounter Plan of Treatment Upcoming Encounters Date Type Department Care Team (Late st Contact Info) Description 02/07/2025 8:16 AM CDT Hospital Encounter [facility] [place] [address] [place] [address] [place] [address] [place] [address] 02/07/2025 8:16 AM CDT - 02/07/2025 8:[address] [facility] [place] [address] [place] [place] [address] [place] [address] [place] [address] CYSTOSCOPY Scheduled Procedures Name Priority Associated Diagnoses [...] Rule Out 10/06/2021 10/06/2021 10/06/2021 8:43 PM SOCIAL MEDIA DIRECTOR COVID-19 Rule Out 02/14/2022 02/14/2022 02/14/2022 8:59 AM CDT COVID-19 Rule Out 02/22/2022 02/22/2022 02/22/2022 2:34 AM CDT COVID-19 Rule Out 02/22/2022 02/22/2022 02/23/2022 11:16 AM CDT COVID-19 Rule Out 06/02/2022 06/02/2022 06/02/2022 9:32 PM CDT COVID-19 Confirmed 06/02/2022 06/02/2022 12:32 AM CDT COVID-19 Rule Out 09/03/2022 09/03/2022 09/03/2022 3:29 PM SOCIAL MEDIA DIRECTOR COVID-19 Rule Out 10/25/2023 10/25/2023 10/25/2023 2:09 PM SOCIAL MEDIA DIRECTOR documented as of this encounter Care Teams Instrument Repair Supervisor Relationship Specialty Start Date End Date Elmer Wallace MD [address] [place] [address] PCP - General FAMILY PRACTICE 06/14/19 03/20/22 Lopez Pool MD [address] [place] [address] PCP - General FAMILY PRACTICE 03/21/22 Lopez Pool MD [address] [place] [address] FAMILY PRACTICE 03/21/22 documented as of this encounter
--- OUTSIDE RECORDS SUMMARY | 2025-01-10 18:37 | XMS_ITS | Encounter Summary ---
Author Organization [facility] [employer] [facility] Address [address] [place] [address] Phone Care Team Providers Care Save All Operator Name Role Phone Elmer Wallace MD Primary Care Provider Hema Castaneda MD Unavailable [phone] Colleen Bain MD Unavailable [phone] Rosette Espinoza MD Unavailable [phone] Jenni Hartley RN Unavailable Unavailable Meenu Jones NP Unavailable [phone] Lopez Pool MD Primary Care Provider [phone] Jacqueline Schaeffer RN Unavailable Unavailable Jenni Hartley RN Unavailable Unavailable Anat Hutchison Unavailable Unavailable Encounter Details Date Type Department Care Team (Late st Contact Info) Description 02/25/2018 Orders Only [facility] CAR CLINCONV ProviderLexi MD [address] [place] [address] Social History Tobacco Use Types Packs/Day Years Used Date Smoking Tobacco: Former Comments Unknown Sex and Gender Information Value Date Recorded Sex Assigned at Not on file Legal Sex Female 3:00 AM BUSINESS PROJECT 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 Gender Identity Female 07/13/2018 9:28 AM CDT Sexual Orientation Not on file documented as of this encounter Plan of Treatment Upcoming Encounters Date Type Department Care Team (Latest Contact Info) Description 02/10/2025 7:30 AM CDT Hospital Encounter [facility] and V[facility] Center 1 [place] [phone] Nate, Engine Tester, [address] [place] [address] Patricia Smith MD [address] [facility] [address] [place] [address] Atrial fibrillation, unspecified type (HCC) 02/10/2025 7:30 AM CDT - 02/10/2025 8:05 AM CDT Surgery [facility] 1 [place] [phone] Patricia Smith MD [address] [facility] [address] [place], [place] [id number] CARDIOVERSION documented as of this encounter Procedures [...] Narrative 02/25/2018 Ordered by an unspecified provider. [facility] Provider CV CARDIAC SERVICES PROCE DURES Final Result * CARDIOLOGY REPORT (02/25/2018) Anatomical Region Laterality Modality Other Narrative 02/25/2018 Ordered by an unspecified provider. [facility] Provider CV CARDIAC SERVICES PROCE DURES Final Result * CARDIOLOGY REPORT (02/25/2018) Anatomical Region Laterality Modality Other Narrative 02/25/2018 Ordered by an unspecified provider. [facility] Provider CV CARDIAC SERVICES PROCE DURES Final Result * CARDIOLOGY REPORT (02/25/2018) Anatomical Region Laterality Modality Other Narrative 02/25/2018 Ordered by an unspecified provider. [facility] Provider CV CARDIAC SERVICES PROCE DURES Final Result * CARDIOLOGY REPORT (02/25/2018) Anatomical Region Laterality Modality Other Narrative 02/25/2018 Ordered by an unspecified provider. [facility] Provider CV CARDIAC SERVICES PROCE DURES Final Result * CARDIOLOGY REPORT (02/25/2018) Anatomical Region Laterality Modality Other Narrative 02/25/2018 Ordered by an unspecified provider. Result [facility] Provider CV CARDIAC SERVICES PROCE DURES Final Result documented in this encounter Visit Diagnoses Not on filedocumented in this encounter Additional Health Concerns Infection Onset Date Last Indicated Resolved Time COVID: Suspected 03/13/2022 03/13/2022 03/13/2022 6:26 PM CDT documented as of this encounter Care Teams Save All Operator Relationship Specialty Start Date End Date Elmre Wallace MD PCP - General 02/09/17 03/17/22 Lopez Pool MD PCP - General Family Medicine 03/18/22 Hema Castaneda MD Consulting Physician Cardiology 01/11/19 Colleen Bain MD Referring Physician Endocrinology Diabetes & Metabolism 04/07/19 Rosette Espinoza MD Referring Physician Cardiology 04/07/19 Jenni Hartley, RN Registered Nurse Cardiology 04/02/21 04/22/21 Meenu Jones NP Garbage Man Cardiology 04/02/21 04/22/21 Jacqueline Schaeffer, fixed route bus operator Failure Coordinator Cardiology 07/13/24 Jenni Hartley, RN Registered Nurse 07/13/24 08/01/24 Anat Hutchison 07/13/24 documented as of this encounter
--- OUTSIDE RECORDS SUMMARY | 2025-01-10 18:38 | XMS_ITS | Encounter Summary ---
Author Organization [facility] Healthcare Address [address] [place] [address] Care Team Providers Care Alcohol Rubber Name Role Phone Hema Castaneda MD Unavailable [phone] Colleen Bain MD Unavailable [phone] Rosette Espinoza MD Unavailable [phone] Lopez Pool MD Primary Care Provider Jacqueline Schaeffer RN Unavailable Unavailable Anat Hutchison Unavailable Unavailable Encounter Details Date Type Department Care Team (Late st Contact Info) Description 01/09/2025 Telephone [facility] Transplant Heart [address] [facility] [address] [phone] [place] [address] Kiko Omalley Social History Tobacco Use Types Packs/Day Years Used Date Smoking Tobacco: Former Cigarettes Q uit: 2006 Passive Smoke Exposure: Past Smokeless Tobacco: Never Alcohol Use Standard Drinks/Week [...] How often do you attend chur or episcopal services? Never 03/14/2022 Do you belong to any clubs o r organizations such as sabianist groups, unions, fraternal or athletic groups, or [...] place to sleep or slept in a jail (including now)? No 03/14/2022 Personal Safety Answer Date Recorded Have you ever been in or are you currently in a harmful physical or emotional relationship or is someone making you feel afraid or unsafe? 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 She send a new order to be signed. * Telephone Encounter - Kiko Omalley - 01/09/2025 9:12 AM CDT Patient returning call from transplant nurse coordinator regarding: June with [facility] calling Jenni back. She was unsure what the call was pertaining to. Please call her back at [phone] documented in this encounter Plan of Treatment Upcoming Encounters Date Type Department Care Team (Latest Contact Info) Description 02/10/2025 7:30 AM CDT Hospital Encounter [facility] Vascular Center 1 [place] [address] Nate Brake Reliner, [address] [place] [address] Patricia Smith MD [address] [address] Atrial fibrillation, unspecified type (HCC) 02/10/2025 7:30 AM CDT - 02/10/2025 8:05 AM CDT Surgery [facility] [address] [place] [address] Patricia Smith MD [address] [address] CARDIOVERSION documented as of this encounter Visit Diagnoses Not on filedocumented in this encounter Care Teams Alcohol Rubber Relationship Specialty Start Date End Date Lopez Pool MD PCP - General Family Medicine 03/18/22 Hema Castaneda MD Consulting Physician Cardiology 01/11/19 Colleen Bain MD Referring Physician Endocrinology Diabetes & Metabolism 04/07/19 Rosette Espinoza MD Referring Physician Cardiology 04/07/19 Jacqueline Schaeffer slug press operator Failure Coordinator Cardiology 07/13/24 Anat Hutchison 07/13/24 documented as of this encounter
--- OUTSIDE RECORDS SUMMARY | 2025-01-10 18:38 | XMS_ITS | Encounter Summary ---
Author Organization [facility] Healthcare Address [address] [place] [address] Care Team Providers Care Toe Stripper Name Role Phone Hema Castaneda MD Unavailable [phone] Colleen Bain MD Unavailable [phone] Rosette Espinoza MD Unavailable [phone] Lopez Pool MD Primary Care Provider [phone] Jacqueline Schaeffer RN Unavailable Unavailable Anat Hutchison Unavailable Unavailable Encounter Details Date Type Department Care Team (Late st Contact Info) Description 01/06/2025 Results Follow-Up [facility] Transplant Heart [address] [address] [address] [phone] [place] [address] Jenni Hartley RN Social History Tobacco Use Types Packs/Day [...] week 03/14/2022 How often do you attend [facility] or gnosticism services? Never 03/14/2022 Do you belong to any clubs o r organizations such as scientology groups, unions, fraternal or athletic groups, or [...] place to sleep or slept in a long-term (including now)? No 03/14/2022 Personal Safety Answer Date Recorded Have you ever been in or are you currently in a harmful physical or emotional relationship or is someone making you feel afraid or unsafe? 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 Not on file Not on file documented as of this encounter Plan of Treatment Upcoming Encounters Date Type Department Care Team (Latest Contact Info) Description 02/10/2025 7:30 AM CDT Hospital Encounter [facility] Heart [facility] Vascular [address] [address] Fred SullivanPipe Tester, [address] [place] [address] Patricia Smith MD [address] [id number] Atrial fibrillation, unspecified type (HCC) 02/10/2025 7:30 AM CDT - 02/10/2025 8:05 AM CDT Surgery [facility] Heart [facility] Vascular [address] [address] Patricia Smith MD [address] [id number] CARDIOVERSION documented as of this encounter Visit Diagnoses Not on filedocumented in this encounter Care Teams Toe Stripper Relationship Specialty Start Date End Date Lopez Pool MD PCP - General Family Medicine 03/18/22 Hema Castaneda MD Consulting Physician Cardiology 01/11/19 Colleen Bain MD Referring Physician Endocrinology Diabetes & Metabolism 04/07/19 Rosette Espinoza MD Referring Physician Cardiology 04/07/19 Jacqueline Schaeffer, wardsperson Failure Coordinator Cardiology 07/13/24 Anat Hutchison 07/13/24 documented as of this encounter
--- OUTSIDE RECORDS SUMMARY | 2025-01-10 18:38 | XMS_ITS ---
Author Organization [facility] Address [address] [place], [place] [address] Care Team Providers Care Financial Underwriter Name Role Phone JOVANNI CAST Unavailable [phone] Lopez Pool Unavailable Unavailable PEDRITO MUÑIZ Unavailable [phone] REASON FOR VISIT *General care Medications Medication SIG (Take, Route, Frequency, Duration) Notes Start Date End Date Status atorvastatin 40 MG Oral Tablet ORAL atorvastatin 40 MG Oral TabletOriginal Medicationatorvastatin 40 MG Oral Tablet *Reorder from [facility] for eRx and Interaction Alerts* 6 Unknown sertraline 100 MG Oral Tablet ORAL sertraline 100 MG Oral TabletOriginal Medicationsertraline 100 MG Oral Tablet *Reorder from [facility] for eRx and Interaction Alerts* 6 Unknown metformin hydrochloride 500 MG Oral Tablet ORAL metformin hydrochloride 500 MG Oral TabletOriginal Medicationmetformin hydrochloride 500 MG Oral Tablet *Reorder from [facility] for eRx and Interaction Alerts* 6 Unknown ferrous sulfate 325 MG Oral Tablet ORAL ferrous sulfate 325 MG Oral TabletOriginal Medicationferrous sulfate 325 MG Oral Tablet *Reorder from [facility] for eRx and Interaction Alerts* 6 Unknown calcium carbonate 600 MG / ergocalciferol 200 UNT Oral Tablet ORAL calcium carbonate 600 MG / ergocalciferol 200 UNT Oral TabletOriginal Medicationcalcium carbonate 600 MG / ergocalciferol 200 UNT Oral Tablet *Reorder from [facility] for eRx and Interaction Alerts* 6 Unknown aspirin 81 MG Oral Tablet ORAL aspirin 81 MG Oral TabletOriginal Medicationaspirin 81 MG Oral Tablet *Reorder from [facility] for eRx and Interaction Alerts* 6 Unknown Anastrozole 1 MG Oral Tablet ORAL anastrozole 1 MG Oral TabletOriginal Medicationanastrozole 1 MG Oral Tablet *Reorder from [facility] for eRx and Interaction Alerts* 6 Unknown Lisinopril 40 MG Oral Tablet ORAL lisinopril 40 MG Oral TabletOriginal Medicationlisinopril 40 MG Oral Tablet *Reorder from [facility] for eRx and Interaction Alerts* 6 Unknown Warfarin Sodium 2 MG Oral Tablet ORAL warfarin sodium 2 MG Oral TabletOriginal Medicationwarfarin sodium 2 MG Oral Tablet *Reorder from [facility] for eRx and Interaction Alerts* 6 Unknown Encounters Encounter Location Date Provider Diagnosis [address] [id number] 06/09/2024 PEDRITO MUÑIZ Other hammer toe(s) (acquired), right foot M20.41 ; Tinea unguium B35.1 ; Other hammer toe(s) (acquired), left foot M20.42 ; Pain in right toe(s) M79.674 ; Pain in left toe(s) M79.675 ; 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 *General care. * HPI: H PI: General care P atient presents to the office for diabetic foot care. Patient states that their nails are thickened, elongated and painful. Patient states that it is aggravated by shoe gear. Onset is gradual., Patient is taking prescription blood thinners., Date last seen by Dr. Pool was 03/2024., Initials [facility]. * ROS: G eneral / Constitutional: Patient denies w eakness. R espiratory: Patient denies c hronic cough, shortness of breath, sputum production. C ardiovascular: Patient denies c hest pain, history of UT, irregular heartbeat. M usculoskeletal: Patient complains of [...] sodium 2 MG Oral Tablet *Reorder from [facility] for eRx and Interaction Alerts*, Unknown Lisinopril 40 MG Oral Tablet ORAL , Notes to Pharmacist: lisinopril 40 MG Oral TabletOriginal Medicationlisinopril 40 MG Oral Tablet *Reorder from [facility] for eRx and Interaction Alerts*, Unknown Anastrozole 1 MG Oral Tablet ORAL , Notes to Pharmacist: anastrozole 1 MG Oral TabletOriginal Medicationanastrozole 1 MG Oral Tablet *Reorder from [facility] for eRx and Interaction Alerts*, Unknown aspirin 81 MG Oral Tablet ORAL , Notes to Pharmacist: aspirin 81 MG Oral TabletOriginal Medicationaspirin 81 MG Oral Tablet *Reorder from [facility] for eRx and Interaction Alerts*, Unknown atorvastatin 40 MG Oral Tablet ORAL , Notes to Pharmacist: atorvastatin 40 MG Oral TabletOriginal Medicationatorvastatin 40 MG Oral Tablet *Reorder from [facility] for eRx and Interaction Alerts*, Unknown calcium carbonate 600 MG / ergocalciferol 200 UNT Oral Tablet ORAL , Notes to Pharmacist: calcium carbonate 600 MG / ergocalciferol 200 UNT Oral TabletOriginal Medicationcalcium carbonate 600 MG / ergocalciferol 200 UNT Oral Tablet *Reorder from [facility] for eRx and Interaction Alerts*, Unknown ferrous sulfate 325 MG Oral Tablet ORAL , Notes to Pharmacist: ferrous sulfate 325 MG Oral TabletOriginal Medicationferrous sulfate 325 MG Oral Tablet *Reorder from [facility] for eRx and Interaction Alerts*, Unknown metformin hydrochloride 500 MG Oral Tablet ORAL , Notes to Pharmacist: metformin hydrochloride 500 MG Oral TabletOriginal Medicationmetformin hydrochloride 500 MG Oral Tablet *Reorder from [facility] for eRx and Interaction Alerts*, Unknown sertraline 100 MG Oral Tablet ORAL , Notes to Pharmacist: sertraline 100 MG Oral TabletOriginal Medicationsertraline 100 MG Oral Tablet *Reorder from [facility] for eRx and Interaction Alerts* Objective: * [...] M79.675 6 . U nspecified atherosclerosis of lower [place] arteries of extremities, bilateral legs - I70.203 [...] were emphasized. 3. U nspecified atherosclerosis of lower [place] arteries of extremities, bilateral legs Notes: Patient [...] LESIONS, 2 TO 4, Modifiers: Q8 , 74994 DEBRIDE NAIL, 6 OR MORE, Modifiers: 59 , Q8 * Follow Up: 3 Months * Billing Information: * Visit Code: * Procedure Codes: 34362 TRIM SKIN LESIONS, 2 TO 4. Modifiers: Q8 95097 DEBRIDE NAIL, 6 OR MORE. Modifiers: 59, Q8 * Sign off status: Completed true * Provider: Lanie MUÑIZ Date: 0 06/09/2024 Generated for Rahul samano/Mignon/Jevon on: 0 01/10/2025 [...]
== END 2025-01-10 16:24 | disposition home or self-care (01) ==
PROVIDERS: Visit Provider Family Medicine
DX: I48.0 Paroxysmal atrial fibrillation (principal); D64.9 Anemia, unspecified
CPT/HCPCS: 36415; 85025; 85610

== ENCOUNTER 2025-04-18 10:20 | Outpatient (NON) | payer MEDICARE, SELFPAY ==
--- OUTSIDE RECORDS SUMMARY | 2025-04-18 10:32 | XMS_ITS | Patient Health Record ---
Author Organization [facility] Address [address] [place], [place] [id number] Care Team Providers Care Director Of Corporate Marketing Name Role Phone JOVANNI CAST Unavailable [phone] Lopez Pool Unavailable Unavailable PEDRITO MUÑIZ Unavailable [phone] TONY KIM Unavailable [phone] Allergies Allergen (clinical drug ingredient) Drug/Non Drug Allergy documented on EMR Reaction Allergy Type Onset Date Status Non-steroidal anti-inflammatory agent (FN) NSAIDs Unknown Drug Allergy Active Reason For Referral No Information Medications Medication SIG (Take, Route, Frequency, Duration) Notes Start Date End Date Status Basaglar KwikPen 100 UNIT/ML as directed Subcutaneous Active Amiodarone HCl 200 MG 1 tablet Orally Once a day Active Iron 325 (65 Fe) MG 1 tablet Orally Three times a Week Active metformin hydrochloride 500 MG Oral Tablet ORAL metformin hydrochloride 500 MG Oral TabletOriginal Medicationmetformin hydrochloride 500 MG Oral Tablet *Reorder from [facility] for eRx and Interaction Alerts* 6 Active Furosemide 40 MG 1 tablet Orally Once a day Active sertraline 100 MG Oral Tablet ORAL sertraline 100 MG Oral TabletOriginal Medicationsertraline 100 MG Oral Tablet *Reorder from [facility] for eRx and Interaction Alerts* 6 Active ferrous sulfate 325 MG Oral Tablet ORAL ferrous sulfate 325 MG Oral TabletOriginal Medicationferrous sulfate 325 MG Oral Tablet *Reorder from [facility] for eRx and Interaction Alerts* 6 Bernardo-Cj g Levothyroxine Sodium 100 MCG 1 tablet in the morning on an empty stomach Orally Once a day Active Spironolactone 25 MG 1 tablet Orally Active atorvastatin 40 MG Oral Tablet ORAL atorvastatin 40 MG Oral TabletOriginal Medicationatorvastatin 40 MG Oral Tablet *Reorder from [facility] for eRx and Interaction Alerts* 6 Not-Takin g Magnesium 400 MG as directed Orally Active calcium carbonate 600 MG / ergocalciferol 200 UNT Oral Tablet ORAL calcium carbonate 600 MG / ergocalciferol 200 UNT Oral TabletOriginal Medicationcalcium carbonate 600 MG / ergocalciferol 200 UNT Oral Tablet *Reorder from [facility] for eRx and Interaction Alerts* 6 Active Anastrozole 1 MG Oral Tablet ORAL anastrozole 1 MG Oral TabletOriginal Medicationanastrozole 1 MG Oral Tablet *Reorder from [facility] for eRx and Interaction Alerts* 6 Not-Takin g Trelegy Ellipta 100-62.5-25 MCG/ACT 1 puff Inhalation Once a day Active aspirin 81 MG Oral Tablet ORAL aspirin 81 MG Oral TabletOriginal Medicationaspirin 81 MG Oral Tablet *Reorder from [facility] for eRx and Interaction Alerts* 6 Not-Takin g Warfarin Sodium 2 MG Oral Tablet ORAL warfarin sodium 2 MG Oral TabletOriginal Medicationwarfarin sodium 2 MG Oral Tablet *Reorder from [facility] for eRx and Interaction Alerts* 6 Active Lisinopril 40 MG Oral Tablet ORAL lisinopril 40 MG Oral TabletOriginal Medicationlisinopril 40 MG Oral Tablet *Reorder from [facility] for eRx and Interaction Alerts* 6 Not-Takin g Immunizations Vaccine Route Administration Date Status Comme nts Influenza (split), 3 yrs and above Unknown 07/16/2011 A dministered Influenza (split), 3 yrs and above Unknown 07/27/2012 A dministered Influenza (split), 3 yrs and above Unknown 06/29/2013 A dministered Influenza (split), 3 yrs and above Unknown 07/03/2014 A dministered Influenza, quadrivalent, spl it virus Unknown 07/09/2017 Administered Influenza, unspecified formulation Unknown 07/20/2017 A dministered Influenza, unspecified formulation Unknown 07/19/2022 A dministered Pneumococcal conjugate PCV 13 Unknown 07/23/2018 Admini stered Pneumococcal polysaccharide PPV23 Unknown 06/07/2014 Ad ministered Pneumococcal polysaccharide PPV23 Unknown 07/21/2016 Ad ministered Tdap Unknown 09/24/2012 Administered Vital Signs Height-cm 167.64 cm 03/30/2025 Weight-kg 113.4 kg 03/30/2025 Height 66 in 03/30/2025 Weight 250 lbs 03/30/2025 BMI 40.35 kg/m2 03/30/2025 Encounters Encounter Location Date Provider Diagnosis [address] [id number] 03/30/2025 TONY JULIO Tinea unguium B35.1 ; Pain in right foot M79.671 ; Pain in left foot M79.672 ; Atherosclerosis of craig arteries of extremities with intermittent claudication, bilateral legs I70.213 ; Acquired keratosis [keratoderma] palmaris et plantaris L85.1 and Type 2 diabetes mellitus with other circulatory complications E11.[address] [id number] 06/09/2024 PEDRITO MUÑIZ Other hammer toe(s) (acquired), right foot M20.41 ; Tinea unguium B35.1 ; Other hammer toe(s) (acquired), left foot M20.42 ; Pain in right toe(s) M79.674 ; Pain in left toe(s) M79.675 ; Unspecified atherosclerosis of craig arteries of extremities, bilateral legs I70.203 ; Acquired keratosis [keratoderma] palmaris et plantaris L85.1 and Type 2 diabetes mellitus with diabetic peripheral angiopathy without gangrene E11.[address] [id number] 08/11/2024 PEDRITO MUÑIZ Other hammer toe(s) (acquired), right foot M20.41 ; Tinea unguium B35.1 ; Other hammer toe(s) (acquired), left foot M20.42 ; Pain in right toe(s) M79.674 ; Pain in left toe(s) M79.675 ; Unspecified atherosclerosis of craig arteries of extremities, bilateral legs I70.203 ; Acquired keratosis [keratoderma] palmaris et plantaris L85.1 and Type 2 diabetes mellitus with diabetic peripheral angiopathy without gangrene E11.51 [facility] [address], [place] [id number] 11/03/2024 JOVANNI SNOOK Tinea unguium B35.1 ; Pain in right foot M79.671 ; Pain in left foot M79.672 ; Atherosclerosis of craig arteries of extremities with intermittent claudication, bilateral legs I70.213 ; Acquired keratosis [keratoderma] palmaris et plantaris L85.1 and Type 2 diabetes mellitus with other circulatory complications E11.59 [facility], [facility] [address] [place], [place] [id number] 01/19/2025 JOVANNI SNOOK Tinea unguium B35.1 ; Pain in right foot M79.671 ; Pain in left foot M79.672 ; Atherosclerosis of craig arteries of extremities with intermittent claudication, bilateral legs I70.213 ; Acquired keratosis [keratoderma] palmaris et plantaris L85.1 and Type 2 diabetes mellitus with other circulatory complications E11.59 Assessments Encounter Date Diagnosis (ICD Code) Assessment Notes Treatment Notes Treatment Clinical Notes Section Notes 06/09/2024 Tinea unguium (ICD-10 - B35.1) Aseptic [...] Pain in right foot (ICD-10 - M79.671) 01/19/2025 Tinea unguium (ICD-10 - B35.1) Nails 1-5 Bilateral were debrided extensively with nail nippers and emery board, reducing length and girth to pink healthy tissue with any subungual debris and necrotic tissue removed 01/19/2025 Pain in right foot (ICD-10 - M79.671) 03/30/2025 Tinea unguium (ICD-10 - B35.1) Nails 1-5 Bilateral were debrided extensively with nail nippers and emery board, reducing length and girth to pink healthy tissue with any subungual debris and necrotic tissue removed 03/30/2025 Pain in right foot (ICD-10 - M79.671) 03/30/2025 Pain in left foot (ICD-10 - M79.672) 01/19/2025 Pain in left foot (ICD-10 - M79.672) 11/03/2024 Pain in left foot (ICD-10 - M79.672) 08/11/2024 Other hammer toe(s) (acquired), left foot (ICD-10 - M20.42) 06/09/2024 Other hammer toe(s) (acquired), left foot (ICD-10 - M20.42) 06/09/2024 Pain in right toe(s) (ICD-10 - M79.674) 08/11/2024 Pain in right toe(s) (ICD-10 - M79.674) 11/03/2024 Atherosclerosis of craig arteries of extremities with intermittent claudication, bilateral legs (ICD-10 - I70.213) 01/19/2025 Atherosclerosis of craig arteries of extremities with intermittent claudication, bilateral legs (ICD-10 - I70.213) 03/30/2025 Atherosclerosis of craig arteries of extremities with intermittent claudication, bilateral legs (ICD-10 - I70.213) Check and protect LE bilateral daily. Call if any changes or concerns 03/30/2025 Acquired keratosis [keratoderma] palmaris et plantaris (ICD-10 - L85.1) A total of 2 corns or calluses, as described in the note above, were cut and pared utilizing a #15 blade 01/19/2025 Acquired keratosis [keratoderma] palmaris et plantaris (ICD-10 - L85.1) A total of 1 corns or calluses, as described in the note above, were cut and pared utilizing a #15 blade 11/03/2024 Acquired keratosis [keratoderma] palmaris et plantaris (ICD-10 - L85.1) A total of 1 corns or calluses, as described in the note above, were cut and pared utilizing a #15 blade 08/11/2024 Pain in left toe(s) (ICD-10 - M79.675) 06/09/2024 Pain in left toe(s) (ICD-10 - M79.675) 06/09/2024 Unspecified atherosclerosis of craig arteries of extremities, bilateral legs (ICD-10 - I70.203) Patient educated on risks and aggravating factors of PVD, including conservative treatment options such as a diet and exercise regimen to aid in slowing progression of vascular disease 08/11/2024 Unspecified atherosclerosis of craig arteries of extremities, bilateral legs (ICD-10 - I70.203) Patient educated on risks and aggravating factors of PVD, including conservative treatment options such as a diet and exercise regimen to aid in slowing progression of vascular disease 11/03/2024 Type 2 diabetes mellitus with other circulatory complications (ICD-10 - E11.59) 01/19/2025 Type 2 diabetes mellitus with other circulatory complications (ICD-10 - E11.59) 03/30/2025 Type 2 diabetes mellitus with other circulatory complications (ICD-10 - E11.59) The lifetime risk of a foot ulcer for patients with diabetes (type 1 or 2) may be as high as 25 percent. Diabetic foot ulcers are a major cause of morbidity and mortality, accounting for approximately two-thirds of all nontraumatic amputations performed in the [place]. This observation illustrates the importance of preventive care and prompt treatment of foot ulcers in patients with diabetes. 08/11/2024 Acquired keratosis [keratoderma] palmaris et plantaris [...] Of Treatment Next Appt Details Provider Name:TONY KEENE, 06/01/2025 09:10:00 AM, [address] [place] [address], [id number], Insurance Providers Payer Name Payer Address Payer Phone Subscriber Number Group Number Insured Name Patient Relationship to Insured Coverage Start Date Coverage End Date Medicare Part B [place] [address] [place] [address] [id number] CAYLA WALKER Self - patient is the insured [facility] ([facility]) ATTN CLAIMS [address] [place] [address] [id number] KULKARNI WALKER Self - patient is the insured Medical (General) History Medical History History ICD Code acid reflux Blood transfusion neuropathy Pneumonia stroke anemia Cancer Leg/Feet cramps Respiratory disease Arthritis Liver disease Thyroid Disease Back Trouble Diabetic heart/disease/failure Radiation therapy abnormal bleeding high blood pressure Lung Disease peripheral vascular disease restless leg syndrome abdominal aortic aneurysm
--- OUTSIDE RECORDS SUMMARY | 2025-04-18 10:32 | XMS_ITS | Encounter Summary ---
Author Organization [facility] Address [address] [place] [address] Phone Care Team Providers Care Multifocal Button Generator Name Role Phone Hema Castaneda MD Unavailable [phone] Colleen Bain MD Unavailable [phone] Rosette Espinoza MD Unavailable [phone] Lopez Pool MD Primary Care Provider Jacqueline Schaeffer RN Unavailable Unavailable Anat Hutchison Unavailable Unavailable Encounter Details Date Type Department Care Team (Late st Contact Info) Description 04/17/2025 Results Follow-Up [facility] Gasteroenterology [address] [facility] Advanced Medicine 12th [place] [address] [place] [address] Natalia Pino, SHAILESH [address] [place] [address] [id number], Tumor Marker, Smooth muscle antibody, qualitative, Mitochondrial antibodies, qualitative, Additional followed-up results: 11 Social History Tobacco Use Types Packs/Day Years Used Date Smoking Tobacco: Former Cigarettes 1 54 S tarted: 2 Passive Smoke Exposure: Past Smokeless Tobacco: Never Alcohol Use Standard Drinks/Week Comments No 0 (1 standard drink = 0.6 oz pur e alcohol) minimal [facility] Utilities Answer Date Recorded In the past 12 months has th e electric, gas, oil, or water Timescape threatened to shut off services in your home? No 02/03/2025 Social Connection and Isolat ion Panel [NHANES] Answer Date Recorded In a typical week, how many times do you talk on the phone with family, friends, or neighbors? More than three times a week 02/03/2025 How often do you get togethe r with friends or relatives? More than three times a week 02/03/2025 How often do you attend chur ch or caodaism services? Never 02/03/2025 Do you belong to any clubs o r organizations such as restorationist groups, unions, fraternal or athletic groups, or school groups? No 02/03/2025 How often do you attend meet ings of the clubs or organizations you belong to? Never 02/03/2025 Are you , , di vorced, , never , or living with a partner? 02/03/2025 AUDIT-C Answer Date Recorded Q1: How often do you have a drink containing alcohol? Never 02/01/2025 Q2: How many drinks containi ng alcohol do you have on a typical day when you are drinking? Patient does not drink Q3: How often do you have si x or more drinks on one occasion? Never 02/01/2025 Overall Financial Resource Strain (CARDIA) Answe r Date Recorded How hard is it for you to pa y for the very basics like food, housing, medical care, and heating? Not very hard 02/03/2025 PHQ-2 Answer Date Recorded PHQ-2 Total Score 1 03/14/2022 Hunger Vital Sign Answer Date Recorded Within the past 12 months, y ou worried that your food would run out before you got the money to buy more. Never true 02/04/20 25 Within the past 12 months, t he food you bought just didn't last and you didn't have money to get more. Never true 02/03/2025 PRAPARE - Transportation Answer Date Re corded In the past 12 months, has l ack of transportation kept you from medical appointments or from getting medications? No 01/17 In the past 12 months, has l ack of transportation kept you from meetings, work, or from getting things needed for daily living? No 02/03/2025 Housing Stability Vital Sign Answer Sebas e [...] in a penitentiary (including now)? No 03/14/2022 Housing Stability Vital Sign Answer Sebas e Recorded In the last 12 months, was t here a time when you were not able to pay the mortgage or rent on time? No 02/03/2025 In the past 12 months, how m any times have you moved where you were living? 0 02/03/2025 At any time in the past 12 m [facility], were you homeless or living in a penitentiary (including now)? No 02/03/2025 Personal Safety Answer Date Recorded Have you ever been in or are you currently in a harmful physical or emotional relationship or is someone making you feel afraid or unsafe? 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 Delayed task to the pool toschedule the HFP and GGT in 2-3 months (May 2025-June 2025). * Result Encounter Note - Natalia Pino NP - 04/17/2025 8:46 AM CDT ALP 142, AST 51, GGT 114. AMA neg Hollie - I had ordered US to be done in Jul for HCC screening. Let's repeat HFP and GGT in 2-3 months. If alk phos and GGT remain abnormal, she will need MRCP instead of US. Also, rec hep A and B vaccines. Sent my chart message MELD 3.0: 12 at 04/13/2025 11:37 AM MELD-Na: 10 at 04/13/2025 11:37 AM Calculated from: Serum Creatinine: 1.44 mg/dL at 04/13/2025 11:37 AM Serum Sodium: 144 mmol/L (Using max of 137 mmol/L) at 04/13/2025 11:37 AM Total Bilirubin: 0.2 mg/dL (Using min of 1 mg/dL) at 04/13/2025 11:37 AM Serum Albumin: 3.7 g/dL (Using max of 3.5 g/dL) at 04/13/2025 11:37 AM INR(ratio): 1.03 at 04/13/2025 11:37 AM Age at listing (hypothetical): 79 years Sex: Female at 04/13/2025 11:37 AM documented in this encounter Plan of Treatment Upcoming Encounters Date Type Department Care Team (Late st Contact Info) Description 05/03/2025 10:00 AM CDT Hospital Encounter [facility] [address] [address] [address] Sea Ignacio MD [address] [place] [address] 05/03/2025 10:00 AM CDT - 05/03/2025 10:45 AM CDT Surgery [facility] [address] [address] [place] [place] [address] Sea Ignacio MD [address] [place] [address] COLONOSCOPY Scheduled Procedures Name Priority Associated Diagnoses Date/Ti me COLONOSCOPY Iron deficiency anemia, unspecified iron deficiency anemia type Abnormal colonoscopy 05/03/2025 10:00 AM CDT documented as of this encounter Visit Diagnoses Not on filedocumented in this encounter Care Teams Multifocal Button Generator Relationship Specialty Start Date End Date Lopez Pool MD PCP - General Family Medicine 03/18/22 Hema Castaneda MD Consulting Physician Cardiology 01/11/19 Colleen Bain MD Referring Physician Endocrinology Diabetes & Metabolism 04/07/19 Rosette Espinoza MD Referring Physician Cardiology 04/07/19 Jacqueline Schaeffer RN Heart Failure Coordinator Cardiology 07/13/24 Anat Hutchison 07/13/24 documented as of this encounter
--- OUTSIDE RECORDS SUMMARY | 2025-04-18 10:32 | XMS_ITS | Encounter Summary ---
Author Organization [facility] Address [address] [place] [address] Phone Care Team Providers Care Content Checker Name Role Phone Hema Castaneda MD Unavailable [phone] Colleen Bain MD Unavailable [phone] Rosette Espinoza MD Unavailable [phone] Lopez Pool MD Primary Care Provider [phone] Jacqueline Schaeffer RN Unavailable Unavailable Jenni Hartley RN Unavailable Unavailable Anat Hutchison Unavailable Unavailable Zeynep Pérez RN Unavailable [phone] Encounter Details Date Type Department Care Team [...] week 03/14/2022 How often do you attend [facility] or latter day services? 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 Not on file Not on file documented as of this encounter Plan of Treatment Upcoming Encounters Date Type Department Care Team (Late st Contact Info) Description 05/03/2025 10:00 AM CDT Hospital Encounter [facility]oscopy [address] [place] [address] Sea Ignacio MD [address] [place] [address] 05/03/2025 10:00 AM CDT - 05/03/2025 10:45 AM CDT Surgery [facility] [address] [address] [address] Sea Ignacio MD [address] [place] [address] COLONOSCOPY Scheduled Procedures Name Priority Associated Diagnoses Date/Ti me COLONOSCOPY Iron deficiency anemia, unspecified iron deficiency anemia type Abnormal colonoscopy 05/03/2025 10:00 AM CDT documented as of this encounter Procedures Procedure Name Priority Date/Time Associated Diagnosis Comments PULMONARY - RESULT SCAN 12/09/2022 documented in this encounter Results * PULMONARY - RESULT SCAN (12/09/2022) Anatomical Region Laterality Modality Other us Provider Scanning Final Result documented in this encounter Visit Diagnoses Not on filedocumented in this encounter Care Teams Content Checker Relationship Specialty Start Date End Date Lopez Pool MD PCP - General Family Medicine 03/18/22 Hema Castaneda MD Consulting Physician Cardiology 01/11/19 Colleen Bain MD Referring Physician Endocrinology Diabetes & Metabolism 04/07/19 Rosette Espinoza MD Referring Physician Cardiology 04/07/19 Jacqueline Schaeffer, vehicle body maker Failure Coordinator Cardiology 07/13/24 Jenni Hartley, RN Registered Nurse 07/13/24 08/01/24 Anat Hutchison 07/13/24 Zeynep Pérez, MIRI [address] [address] [employer] Outpatient Property Analyst 02/03/25 03/02/25 documented as of this encounter
--- OUTSIDE RECORDS SUMMARY | 2025-04-18 10:33 | XMS_ITS | Encounter Summary ---
Author Organization [facility] Address [address] [place] [address] Care Team Providers Care Stationary Engineer Refrigeration Name Role Phone Lopez Pool MD Primary Care Provider Lopez Pool MD Unavailable [phone] Martine Garsia RN Unavailable Unavailable Reason for Visit * Reason Onset Date Comments Follow Up Call 06/17/2024 [facility] 06/17-06/19/24 Encounter Details Date Type Department Care Team (Latest Contact Info) Description 06/22/2024 Hospital Follow-up Call [facility] Care Management [address] [place] [address] [address] [place] [id number] Brenda Weaver LPN Follow Up Call (SFL [...] materials from doctor or pharmacy Never 12/30/2023 [facility] Utilities Answer Date Recorded In the [...] often do you attend chur ch or baptist services? 1 to 4 times per year 02/22/2022 Do you belong to any clubs o r organizations such as jain groups, unions, fraternal or athletic groups, or [...] move on to questions 3-9 0 02/22/2022 [place] [facility] - Occupational Stress [...] slept in a usp (including now)? No 10/25/2023 Housing Stability Vital Sign Answer Sebas e Recorded In the last 12 months, was t here a time when you were not able to pay the mortgage or rent on time? No 06/18/2024 In the past 12 months, how m any times have you moved where you were living? 1 06/18/2024 At any time in the past 12 m [facility], were you homeless or living in a usp (including now)? No 06/18/2024 Comments No Sex and Gender Information Value Date Recorded Sex Assigned at Female 11/01/2024 8:23 AM DENTAL SERVICES DIRECTOR Legal Sex Female 10:48 PM DENTAL SERVICES DIRECTOR Gender Identity Not on file Sexual [...] Author Status No 06/18/2024 2:32 AM CDT Wilsno Blankenship RN Active * Do you have [...] Care Team (Late st Contact Info) Description 04/19/2025 3:00 PM CDT Appointment [facility] [address] [place] [address] Jacqueline Merritt PAMarizol [address] [facility] documented as of this encounter Goals Goal Patient Goal Type Associated Problems Recent Progress Patient-Stated? Author Safety Patient/family will have appropriate support at home upon discharge General No Priscila Díaz LSW documented as of this encounter Visit Diagnoses Not on filedocumented in this encounter Additional Health Concerns Assessment Noted Time PHQ-9 Depression Total Score: 0 05/07/20 22 5:14 AM CDT documented as of this encounter Care Teams Stationary Engineer Refrigeration Relationship Specialty Start Date End Date Lopez Pool MD [address] [place] [address] PCP - General FAMILY PRACTICE 03/21/22 Lopez Pool MD [address] [place] [address] [facility] 03/21/22 Martine Garsia, matching machine operator (Ambulatory) REGISTERED NURSE 02/27/25 documented as of this encounter
--- OUTSIDE RECORDS SUMMARY | 2025-04-18 10:33 | XMS_ITS | Continuity of Care Document ---
Author Organization [facility] Address [id number] [place] [address] [place] [address] Phone Care Team Providers Care Cross Tie Maker Name Role Phone Jimmy Blackwell DO Unavailable Unavailable Advance Directives Directive Yes / No Effective Date File Name No Information Encounters Encounter Description Practice Location Reason(s) For Visit Diagnoses Date Provider Providers Copied on Encounter [facility], [address], [place], [place], [id number], tel:[phone] [facility] No Information Rosalva Ibarra. [address] [place], [address], [place]. tel: [phone] Family History Family Member Type Diagnosis Age At Onset No Information Payers Payer name Insurance type Covered green party ID Authoriza tion(s) [facility] [id number] Medicaid [facility] [id number] Social History Type Description Quantity Date Captured [...]
--- OUTSIDE RECORDS SUMMARY | 2025-04-18 10:33 | XMS_ITS | Encounter Summary ---
Author Organization [facility] Address [address] [place] [address] Phone Care Team Providers Care Retort Unloader Name Role Phone Elmer Wallace MD Primary Care Provider Hema Castaneda MD Unavailable [phone] Colleen Bain MD Unavailable [phone] Rosette Espinoza MD Unavailable [phone] Jenni Hartley RN Unavailable Unavailable Meenu Jones NP Unavailable [phone] Lopez Pool MD Primary Care Provider [phone] Jacqueline Schaeffer RN Unavailable Unavailable Jenni Hartley RN Unavailable Unavailable Anat Hutchison Unavailable Unavailable Zeynep Pérez RN Unavailable [phone] Encounter Details Date Type Department Care Team [...] on file Legal 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 Endoscopy [id number] [address] [address] Sea Ignacio MD [address] [place] [address] 05/03/2025 10:00 AM CDT - 05/03/2025 10:[address] [facility] Endoscopy [id number] [address] [address] Sea Ignacio MD [address] [place] [address] COLONOSCOPY Scheduled Procedures Name Priority Associated Diagnoses [...] documented as of this encounter Care Teams Retort Unloader Relationship Specialty Start Date End Date Elmer Wallace MD PCP - General 02/09/17 03/17/22 Lopez Pool MD PCP - General Family Medicine 03/18/22 Hema Castaneda MD Consulting Physician Cardiology 01/11/19 Colleen Bain MD Referring Physician Endocrinology Diabetes & Metabolism 04/07/19 Rosette Espinoza MD Referring Physician Cardiology 04/07/19 Jenni Hartley, RN Registered Nurse Cardiology 04/02/21 04/22/21 Meenu Jones NP Commissions Coordinator Cardiology 04/02/21 04/22/21 Jacqueline Schaeffer, hobber Failure Coordinator Cardiology 07/13/24 Jenni Hartley, RN Registered Nurse 07/13/24 08/01/24 Anat Hutchison 07/13/24 Zeynep Pérez, MIRI [address] [facility] [address] [place] [address] [facility] Outpatient Post Acute Care Nurse 02/03/25 03/02/25 documented as of this encounter
--- OUTSIDE RECORDS SUMMARY | 2025-04-18 10:33 | XMS_ITS ---
Author Organization [facility] Address [address] [place] [address] Care Team Providers Care Global Ceo Name Role Phone Hema Castaneda MD Unavailable [phone] Colleen Bain MD Unavailable Rosette Espinoza MD Unavailable [phone] Lopez Pool MD Primary Care Provider [phone] Jacqueline Schaeffer RN Unavailable Unavailable Anat Hutchison Unavailable Unavailable Active Problems Problem Noted Date Diagnosed Date Cirrhosis of liver without ascites 04/13/2025 Assessment & Plan (04/13/2025 12:54 PM CDT): Diann Hilliard is an 79 year old female with 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 Recommendations are as follows: Cirrhosis: appears to be compensated. I will obtain MELD labs today in addition to completing workup to rule out other causes of chronic liver disease. We discussed symptoms of cirrhosis. She is not a liver transplant candidate given age and multiple co-morbidities. She should remain abstinent from all alcohol use, avoid NSAIDs and not take more than 2g tylenol daily. HCC screening: due for US in Jul. She will be enrolled in q6 month abdominal imaging. Trend AFP. HE: none Ascites: none. Continue diuretics prescribed for cardiology for BLE edema. Portal hypertension: Last EGD was 01/19/25 without varices. Plan to repeat EGD in 2-3 years. Obesity: discussed the importance of weight loss. She is limited on what she can do for physical exercise. Bland on eating healthy diet. Avoid sweetened beverages. Atrial fibrillation: amiodarone can cause elevated liver tests but patient has been on this for a while without worsening liver enzymes. No need to stop at this time. Anemia: scheduled for colonoscopy. Follows up with GI She will return to clinic in 4-6 months. Abnormal colonoscopy 04/06/2025 Presence of Amulet left atrial appendage closure device 02/01/2025 History of bladder cancer 01/13/2025 History of abdominal aortic aneurysm (AAA) 01/13 Gastrointestinal hemorrhage 01/13/2025 FPC current use of amiodarone 07/22/2024 Acquired hypothyroidism 12/08/2022 Assessment & Plan (10/01/2023 7:53 PM DISK OPERATOR): Symptomatically euthyroid but recent TSH elevated. Has [...] prescribed Assessment & Plan (12/09/2022 9:54 AM DISK OPERATOR): -Labs dated 10/03/22: FT4 was 0.49, TSH [...] 12/19/2019 Assessment & Plan (10/01/2023 7:56 PM DISK OPERATOR): Glucoses high but needs reliable test strips. [...] podiatry Assessment & Plan (12/09/2022 9:54 AM DISK OPERATOR): -Currently prescribed insulin -metformin has been discontinued [...] podiatry Assessment & Plan (11/15/2021 11:27 AM DISK OPERATOR): -Currently prescribed insulin and metformin -A1C recently [...] 12/19/2019 Assessment & Plan (10/01/2023 7:54 PM DISK OPERATOR): Continue statin, optimize glycemic control. Assessment & [...] effects Assessment & Plan (12/08/2022 8:55 AM DISK OPERATOR): -Lipid panel on 03/03/22: TC 108, trig [...] effects Assessment & Plan (11/15/2021 11:23 AM DISK OPERATOR): -Will continue statin as it is being tolerated without side effects Stage 3b chronic kidney disease 03/20/2019 Assessment & Plan (10/01/2023 7:55 PM DISK OPERATOR): Need optimal glycemic control, minimize risk of hypoglycemia. Assessment & Plan (06/15/2023 3:56 PM CDT): -CKD increases risk of hypoglycemia -Will closely monitor glucose pattern in ensure margin of safety Assessment & Plan (03/09/2023 8:23 AM CDT): -CKD increases risk of hypoglycemia -Will closely monitor glucose pattern in ensure margin of safety Assessment & Plan (12/08/2022 8:56 AM DISK OPERATOR): -CKD increases risk of hypoglycemia -Will closely [...] monitor. Assessment & Plan (11/11/2021 12:00 PM DISK OPERATOR): -CKD increases risk of hypoglycemia -Will closely monitor glucose pattern in ensure margin of safety -Following with nephrology Assessment & Plan (04/08/2019 7:30 AM CDT): Recent changes in her medication, but creatinine improved. It is now okay for her to restart metformin Assessment & Plan (03/20/2019 10:51 AM CDT): -continue to monitor Pacemaker 01/21/2019 Other emphysema 01/11/2019 Second degree [...] time. Assessment & Plan (12/09/2022 9:54 AM DISK OPERATOR): -BP was 128/85 -Will continue same antihypertensive [...] MARI Assessment & Plan (11/11/2021 11:59 AM DISK OPERATOR): -Will continue same antihypertensive medications at this time. Assessment & Plan (04/08/2019 7:29 AM CDT): Recent changes in medications. Defer to her Cardiology team Breast cancer ([facility]) 07/13/2018 Overview (07/13/2018): L radical mastectomy with chemo and XRT x [id number]. Assessment & Plan (03/17/2022 10:47 AM CDT): [...] AM CDT): C/w home anastrozole Stroke (cerebrum) (CMS/HCC) 07/13/2018 Overview (07/13/2018): R body weak and [...] (goal 2-3) - cont sotolol, renally dosed FPC current use of anticoagulant therapy 0 03/24/2018 [...] (03/20/2019 10:50 AM CDT): C/w home inhaler Uncontrolled type 2 diabetes mellitus with hyper [...] dysfunction 02/22/2010 Chronic diastolic congestive heart failure ([facility]) 02/22/2010 Assessment [...] Lifetime Dose Automatic Entry Manual Entr y Air kerma at the reference point (Ka,r) 622 mGy 0 mGy 622 mGy DLP 5,263 mGycm 5,263 mGycm 0 mGycm Resolved Problems Problem Noted [...] dose to 5mg - EP consult today Atrial flutter 01/21/2019 01/13/2025 Assessment & Plan (04/08/2019 7:27 AM CDT): [...] -c/w warfarin 6mg qd, INR goal 2-3 Sinus bradycardia 08/28/2017 01/13/2025
--- OUTSIDE RECORDS SUMMARY | 2025-04-18 10:33 | XMS_ITS | Clinical Summary ---
Author Organization [facility] Address [address] [place] [address] Care Team Providers Care Tunneling Machine Operator Name Role Phone Hema Castaneda MD Unavailable [phone] Colleen Bain MD Unavailable [phone] Rosette Espinoza MD Unavailable [phone] Lopez Pool MD Primary Care Provider [phone] Jacqueline Schaeffer RN Unavailable Unavailable Anat Hutchison Unavailable Unavailable Allergies No known active allergies Medications calcium carbonate-vitamin D3 1500 mg (600 mg elemental) -200 units per tablet Take 1 tablet by mouth every morning Active ferrous sulfate 325 mg (65 mg of elemental iron) tablet Take 3 tablets (975 mg total) by mouth 3 (three) times a day with meals Active oxygen Administer 2 L/min into each nostril nightly at 120,000 mL/hr Uses throughout the day for O2 Sats<88% Active triamcinolone (KENALOG) 0.1 % cream 10/02/20 [...] 0.5 tablets (1,000 Units total) by mouth every morning 02/21/20 22 Active magnesium oxide 400 mg magnesium capsule Take 2 tablets by mouth 2 (two) times a day 02/18/20 22 Active lancets misc Use lancet to check blood sugar 3 x a day : DX: E11.65, Type 2 DM requiring insulin 100 each 3 03/24/20 22 Active nystatin powder Apply 1 Application topically 2 (two) times a day 09/25/20 22 Active pen needle, diabetic (TRUEplus Pen Needle) 32 gauge x 32 needle Use with insulin injections twice daily 200 each 3 06/01/20 23 Active glucagon (Gvoke HypoPen 2-Pack) 1 mg/0.2 mL auto-injector Use as needed for treatment of hypoglycemia 0.4 mL 3 07/29/20 23 Active Trelegy Ellipta 200-62.5-25 mcg inhaler Inhale 1 puff every morning 09/09/20 23 Active levothyroxine (SYNTHROID) 137 mcg tablet Take 1 tablet (137 mcg total) 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 08/20/[address] (PROTONIX) 40 mg EC tablet Take 1 tablet (40 mg total) by mouth 2 (two) times a day 05/13/20 24 Active metFORMIN (GLUCOPHAGE) 500 mg tablet Take 1 tablet (500 mg total) by mouth 2 (two) times a day with meals 04/26/20 24 Active BASAGLAR 100 unit/mL (3 mL) pen for injection Inject 55 Units under the skin every evening 55 units once a day 05/13/20 24 Active cetirizine (ZyrTEC) 10 mg tablet Take 1 tablet (10 mg total) by mouth every morning Active spironolactone (ALDACTONE) 25 mg tablet TAKE ONE TABLET BY MOUTH DAILY 90 tablet 3 08/19/20 24 Active blood glucose diagnostic (Contour Next Test Strips) stripIndications:U ncontrolled type 2 diabetes mellitus with hyperglycemia (HCC) TEST 3 TIMES DAILY BACKUP FOR THE DEXCOM CGM (E11.65) 300 each 11/18/19 25 Active sucralfate (CARAFATE) 1 gram tablet [...] mouth every 6 (six) hours as needed for pain 09/19/20 24 Active acetaminophen (TYLENOL) 500 mg tablet Take 2 tablets (1,000 mg total) by mouth every 6 (six) hours as needed for pain Active aspirin 81 mg chewable tabletIndications: coronary artery disease Take 1 tablet (81 mg total) by mouth daily 30 tablet 02/04/20 026 Active clopidogreL (PLAVIX) 75 mg tabletIndications: coronary artery disease Take 1 tablet (75 mg total) by mouth daily 30 tablet 02/04/20 026 Active amiodarone (PACERONE) 200 mg tabletIndications: Prevention of Recurrent Atrial Fibrillation Take 1 tablet (200 mg total) by mouth every morning 30 tablet 02/04/20 25 Active docusate sodium (COLACE) 50 mg capsuleIndications :constipation Take 1 capsule (50 mg total) by mouth 2 (two) times a day as needed for constipation Active fluticasone propionate (FLONASE) 50 mcg/actuation nasal spray Administer 1 spray into each nostril daily Active insulin aspart protamine-insulin aspart 70/30 (NovoLOG 70/30 100 unit/mL) 100 unit/mL vial for injection Inject under the skin 2 times daily Active calcium carbonate (OS-FLAVIA) 1,500 mg (600 mg elemental) tablet Take by mouth daily Active furosemide (LASIX) 40 mg tablet Take 1 tablet (40 mg total) by mouth daily 90 tablet 3 03/24/20 25 Active polyethylene glycol (GoLYTELY) 236-22.74-6.74 -5.86 gram solution Follow Mychart instructions from Dr. Ignacio's office, do not follow instructions on package. For any questions call [phone]. 4000 mL 04/12/20 25 Active FUROSEMIDE ORAL Take 60 mg by mouth daily 025 Discontin ued(Reord er) Active Problems Problem Noted Date Diagnosed Date Cirrhosis of liver without ascites 04/13/2025 Assessment & Plan (04/13/2025 12:54 PM CDT): Walker Hilliard is an 79 year old female [...] what she can do for physical exercise. Amity on eating healthy diet. Avoid sweetened beverages. 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 Has scheduled repeat FT4 and TSH per Dr. Espinoza. Assessment & Plan (06/15/2023 3:54 PM CDT): -Labs on 05/29/2023 showed TSH of 16.9 -Levothyroxine dose was increased to 100 mcg daily Assessment & Plan (03/09/2023 8:23 AM CDT): -Labs dated 12/16/22: FT4 was 0.49, TSH 45.59 -Levothyroxine 75 mcg daily was prescribed Assessment & Plan (12/09/2022 9:54 AM RECORDS OFFICER): -Labs dated 10/03/22: FT4 was 0.49, TSH [...] 12/19/2019 Assessment & Plan (10/01/2023 7:56 PM RECORDS OFFICER): Glucoses high but needs reliable test strips. [...] podiatry Assessment & Plan (12/09/2022 9:54 AM RECORDS OFFICER): -Currently prescribed insulin -metformin has been discontinued [...] podiatry Assessment & Plan (11/15/2021 11:27 AM RECORDS OFFICER): -Currently prescribed insulin and metformin -A1C recently [...] 12/19/2019 Assessment & Plan (10/01/2023 7:54 PM RECORDS OFFICER): Continue statin, optimize glycemic control. Assessment & [...] effects Assessment & Plan (12/08/2022 8:55 AM RECORDS OFFICER): -Lipid panel on 03/03/22: TC 108, trig [...] effects Assessment & Plan (11/15/2021 11:23 AM RECORDS OFFICER): -Will continue statin as it is being tolerated without side effects Stage 3b chronic kidney disease 03/20/2019 Assessment & Plan (10/01/2023 7:55 PM RECORDS OFFICER): Need optimal glycemic control, minimize risk of hypoglycemia. Assessment & Plan (06/15/2023 3:56 PM CDT): -CKD increases risk of hypoglycemia -Will closely monitor glucose pattern in ensure margin of safety Assessment & Plan (03/09/2023 8:23 AM CDT): -CKD increases risk of hypoglycemia -Will closely monitor glucose pattern in ensure margin of safety Assessment & Plan (12/08/2022 8:56 AM RECORDS OFFICER): -CKD increases risk of hypoglycemia -Will closely [...] monitor. Assessment & Plan (11/11/2021 12:00 PM RECORDS OFFICER): -CKD increases risk of hypoglycemia -Will closely [...] time. Assessment & Plan (12/09/2022 9:54 AM RECORDS OFFICER): -BP was 128/85 -Will continue same antihypertensive [...] MARI Assessment & Plan (11/11/2021 11:59 AM RECORDS OFFICER): -Will continue same antihypertensive medications at this time. Assessment & Plan (04/08/2019 7:29 AM CDT): Recent changes in medications. Defer to her Cardiology team Breast cancer ([facility]) 07/13/2018 Overview (07/13/2018): L radical mastectomy with chemo and XRT x 35 [phone]. 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 current use of anticoagulant therapy 0 03/24/2018 [...] dysfunction 02/22/2010 Chronic diastolic congestive heart failure ([facility]) 02/22/2010 Assessment & Plan (03/17/2022 10:47 AM [...] -c/w sotalol 80 mg BID (first dose 5/31 AM) Will not increase further with eCrCL ~ 40, EKG 2 hrs post dose -c/w warfarin 6mg qd, INR goal 2-3 Sinus bradycardia 08/28/2017 01/13/2025 Encounters Date Type Department Care Team Description 04/17/20 25 Results Follow-Up [facility] Gasteroenterolog y [address] [facility] 12th [place] [address] [place] [address] Natalia Pino NP [id number], Tumor Marker, Smooth muscle antibody, qualitative, Mitochondrial antibodies, qualitative, Additional followed-up results: 11 04/14/20 25 Documentation [facility] Gastroenterology [address] 2nd Floor [address] [place] [address] Zeny Grewal, BLUNGER GI ASSESSMENT 04/13/20 11:55 AM CDT Lab [facility] Advanced Medicine ([facility]) [address] [place] [phone] 04/13/20 11:40 AM CDT Lab [facility] Advanced [facility] (CAM) [address] [place] [phone] Cirrhosis of liver without ascites, unspecified hepatic cirrhosis type (HCC); Chronic diastolic congestive heart failure (HCC) 04/13/20 11:00 AM CDT Office Visit [facility] Gastroenterology [address] [place] [address] [place] [address] [place] [address] Natalia Pino, SHAILESH Cirrhosis of liver without ascites, unspecified hepatic cirrhosis type (HCC) (Primary Dx) 04/13/20 25 Orders Only [facility] Gastroenterology [address] [place] [address] [place] [address] [place] [address] Alis Parsons, MIRI Cirrhosis of liver without ascites, unspecified hepatic cirrhosis type (HCC) (Primary Dx) 04/12/20 25 Orders Only [facility] Gastroenterology [address] [place] [address] 2nd Floor Suite [facility] [place] [address] Zeny Grewal LPN 04/06/20 25 Orders Only [facility] Gastroenterology [address] [place] [address] 2nd Floor Suite [facility] [place] [address] Zeny Grewal LPN Iron deficiency anemia, unspecified iron deficiency anemia type (Primary Dx); Abnormal colonoscopy 04/05/20 25 Telephone [facility] Gastroenterology [address] [place] [address] [place] [address] [place] [address] Edel Rainey 04/03/20 Results Follow-Up [facility] Cardiology [address] [place] [address] [place] [address] [place] [address] Nicholas Benites MD PhD Cardiology Document Scan 03/28/[address] [facility] CARDIOLOGY Nicholas Benites MD PhD 03/28/20 Telephone [facility] Cardiology [address] [place] [address] Advanced Medicine 8th [place] [address] [place] [phone] Nicholas Benites MD PhD 03/20/20 11:00 AM CDT Office Visit [facility] Cardiology [address] [place] [address] Medical Office Building [address] [place] [phone] Jesika Ewing NP Paroxysmal atrial fibrillation (HCC) (Primary Dx) 03/20/20 Orders Only [address] Medical Office Building [address] [place] [phone] Rosette Espinoza MD 03/06/20 9:42 AM CDT Anesthesia Event [facility] Heart [facility] 1 [place] [address] Kirstie Vuong MD 03/06/20 6:59 AM CDT - 03/06/20 11:59 PM CDT Hospital Encounter [facility] Heart [facility] 1 [place] [phone] Kirstie Vuong MD Atrial fibrillation, unspecified type (HCC) Discharge Disposition: Discharge to home or self care 03/06/20 Results Follow-Up [facility] Cardiology [address] [place] [address] [facility] 8th [place] [address] [place] [address] Nicholas Benites MD PhD Transesophageal Echocardiogram (MARIO) W Possible Cardioversion 03/06/20 Documentation [facility] Cardiology [address] [place] [address] Advanced Medicine 8th [place] [address] [place] [address] Adriel Bell MD 03/03/20 Telephone [facility] Cardiology [address] [place] [address] Medical Office Building [address] [place] [phone] Rosette Espinoza MD 03/03/20 SHOP/CHAP Subsequent Outreach [facility] 1 [place] [address] Zeynep Pérez, MIRI 03/02/20 25 Telephone [facility] Cardiology [address] [place] [address] 8th [place] [address] [place] [phone] Lucas Valery Kennedye rescheduling LAAO visits 03/02/20 25 Telephone [facility] 1 [place] [address] Christal Stark, MIRI 03/01/20 25 SHOP/CHAP Subsequent Outreach [facility] 1 [place] [address] Zeynep Pérez, MIRI 02/28/20 25 SHOP/CHAP Subsequent Outreach [facility] 1 [place] [address] Olga Groves LCSW 02/24/20 25 SHOP/CHAP Subsequent Outreach [facility] 1 [place] [address] Jenni Snider RN 02/23/20 25 SHOP/CHAP Subsequent Outreach [facility] 1 [place] [address] Zeynep Pérez, MIRI 02/21/20 25 Telephone [facility] and [facility] Transplant Heart [address] [place] [address] [address] [place] [address] Jacqueline Schaeffer RN 02/21/20 25 SHOP/CHAP Subsequent Outreach [facility] 1 [place] [address] Zeynep Pérez, MIRI 02/18/20 25 Anticoagulation Telephone Call [facility] and [facility] Transplant Heart [address] [place] [address] [address] [phone] [place] [address] Jenni Hartley RN Atrial fibrillation, unspecified type (HCC) (Primary Dx); longterm current use of anticoagulant therapy 02/18/20 SHOP/CHAP Subsequent Outreach [facility] 1 [place] [address] Zeynep Pérez, MIRI 02/15/20 25 SHOP/CHAP Subsequent Outreach [facility] 1 [place] [address] Zeynep Pérez, MIRI 02/14/20 25 Orders Only [facility] Scanning, Provider 02/14/20 25 Telephone [facility] and [facility] Transplant Heart [address] [facility] [address] Mail[address] [phone] [place] [address] Alison Nye 02/10/20 25 SHOP/CHAP Subsequent Outreach [facility] 1 [place] [address] Zeynep Pérez RN 02/07/20 25 Orders Only [facility] Gastroenterology [address] [facility] 2nd Floor [address] [place] [address] Zeny Grewal LPN 02/04/20 25 Results Follow-Up [facility] Gastroenterology [address] [facility] Advanced Medicine 12th [place] [address] [place] [address] Amanda Alonso PA US Abdomen Complete W Liver Doppler (C) 02/04/20 25 SHOP/CHAP Initial Outreach [facility] 1 [place] [address] Zeynep Pérez, MIRI 02/04/20 25 SHOP/CHAP Initial Eligibility Review [facility] 1 [place] [address] Zeynep Pérez, MIRI 02/02/20 25 2:22 PM CDT Anesthesia Event [facility] 1 [place] [address] Anthony Donald MD Dolnick, Karen Leigh, NP 02/02/20 1:55 PM CDT - 02/02/20 4:30 PM CDT Surgery [facility] 1 [place] [phone] Nicholas Benites MD PhD PERC CHELI CLOSE W/IMPLANT [id number] 02/02/20 11:11 AM CDT - 02/03/20 2:09 PM CDT Hospital Encounter [facility] 1 [place] [phone] Nicholas Benites MD PhD Atrial fibrillation, unspecified type (HCC) Discharge Disposition: Discharge to home, home health skilled care 02/02/20 9:34 AM CDT - 02/02/20 11:59 PM CDT Hospital Encounter [facility] Radiology 1 [place] [address] GAVE (gastric antral vascula r ectasia); Abnormal liver enzymes; Abnormal findings on esophagogastroduodenoscopy (EGD); Abnormal results of liver function studies Discharge Disposition: Discharge to home or self care 02/02/20 9:00 AM CDT Procedure visit [facility] Gastroenterology [address] [facility] 12th [place] [address] [place] [address] Abnormal colonoscopy; GAVE (gastric antral vascular ectasia); Abnormal liver enzymes 02/02/20 Telephone [facility] Cardiology [address] [facility] 8th [place] [address] [place] [address] Nicholas Benites MD PhD post LAAO visits/MARIO 02/02/20 Results Follow-Up [facility] Cardiology [address] [facility] Medical Office Building 3 [address] [place] [address] Rosette Espinoza MD Liver Elastography w/o Imaging W/I&R -[facility] 01/31/20 Anticoagulation Telephone Call [facility] and [facility] Transplant Heart [address] [address] Mailstop [phone] [place] [address] Jacqueline Schaeffer RN Atrial fibrillation, unspecified type (HCC) (Primary Dx); longterm current use of anticoagulant therapy 01/24/20 Results Follow-Up [facility] Cardiology [address] [facility] 8th [place] [address] [place] [address] [address] Ben[address] MD PhD CT Heart Morphology W Contrast 01/21/20 Results Follow-Up [facility] Gastroenterology [address] [facility] 2nd Floor [address] [place] [address] Zeny Grewal LPN EGD 01/21/20 Orders Only [facility] Gastroenterology [address] [facility] 2nd Floor [address] [place] [address] Zeny Grewal LPN Abnormal colonoscopy (Primary Dx); GAVE (gastric antral vascular ectasia); Abnormal liver enzymes; Abnormal findings on esophagogastroduodenoscopy (EGD); Abnormal results of liver function studies 01/20/20 1:06 PM CDT Anesthesia Event [facility] [address] [place] [phone] Abdi Thorpe MD Long, John Jacob, DO 01/20/20 1:00 PM CDT - 01/20/20 2:00 PM CDT Surgery [facility] [address] [place] [phone] Humza Ledesma MD ESOPHAGOGASTRODUODENOSCOPY BIOPSY 01/20/20 11:27 AM CDT - 01/20/20 2:51 PM CDT Hospital Encounter [facility] [address] [place] [phone] Humza Ledesma MD Iron deficiency anemia, unspecified iron deficiency anemia type; Gastrointestinal hemorrhage, unspecified gastrointestinal hemorrhage type Discharge Disposition: Discharge to home or self care 01/20/20 11:05 AM CDT Lab [facility] Outpatient Lab [address] [place] [phone] History of Coumadin therapy; Diabetes mellitus due to underlying condition with diabetic chronic kidney disease, unspecified CKD stage, unspecified whether care home insulin use (HCC) 01/20/20 Telephone [facility] Cardiology [address] [place] [address] Advanced Medicine 8th [place] [address] [place] [phone] Rosette Espinoza MD 01/19/20 Orders Only [facility] Nicholas Benites MD PhD 01/18/20 12:40 PM CDT - 01/18/20 11:59 PM CDT Hospital Encounter [facility] ([facility]) [address] [place], [place] [phone] Nicholas Benites MD PhD Atrial fibrillation, unspecified type ([facility]) Discharge Disposition: Discharge to home or self care 01/18/20 10:00 AM CDT Pre-Admission Testing [facility] for Preoperative Assessment and Planning [place] [facility] ([facility]) [address] [place], [place] [phone] Preop testing (Primary Dx); Atrial fibrillation, unspecified type (HCC) 01/18/20 Telephone [facility] Cardiology [address] [place] [address] Advanced Medicine 8th [place] [address] [place] [address] Rosette Espinoza MD from Last 3 Months Immunizations Immunization Administration Dates Next Due Influenza, Quadrivalent, Juanita l Culture-based MDCK, Preservative Free, Antibiotic Free, Intramuscular 07/26/2019,07/15/2018 Influenza, Quadrivalent, Spl it, Intramuscular 07/09/2017 Influenza, Trivalent, IM (MDV) 4,06/29/2013,07/27/2012,07/16 Influenza, Unspecified 07/19/2022,07/20/2017 Pneumococcal Conjugate PCV 13 07/23/2018 Pneumococcal Polysaccharide PPV23 07/21/2016, Tdap 09/24/2012 Surgical History Surgery Date Site/Laterality Comments COLECTOMY diverticulosis perf with 1 foot colon removed; no ostomy or appy HYSTERECTOMY 10/19/1984 - 10/18/1985 Prolapsed, no BSO MASTECTOMY, RADICAL 10/19/2014 - 10/18/2015 L breast and nodes BLADDER SURGERY 2012 and 2014 Endoscopic cancer removal CATARACT EXTRACTION, BILATERAL 10/19/2015 - 10/18/2016 CARDIOVERSION 10/19/2021 - 10/18/2022 N/A [facility]JC - pt reported CARDIOVERSION 10/19/2023 - 10/18/2024 N/A [facility] - pt reported TRACHEOSTOMY child bauer CYSTOSCOPY TRANSURETHRAL RESECTION OF BLADDER TUMOR 10/19/2024 - 11/18/2024 CARDIAC PACEMAKER PLACEMENT 10/14/2017 Right [place] Sci/Guidant dual chamber PPM UPPER GASTROINTESTINAL ENDOSCOPY 11/01/2024 US ABDOMEN COMPLETE W LIVER DOPPLER (C) 02/01/2025 Right IMPLANTABLE CARDIAC DEVICE 02/01/2025 N/A Procedure: PERC CHELI CLOSE W/IMPLANT [id number]; Surgeon: Nicholas Benites MD PhD; Location: [facility] 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 Medical History Medical History Date Comments Physical deconditioning 07/13/2018 Former cigarette smoker 07/13/2018 Class 2 obesity in adult 07/13/2018 Anemia 07/13/2018 Depression 07/13/2018 Essential hypertension 07/13/2018 Breast cancer (HCC) 07/13/2018 L radical ma stectomy with chemo and XRT x 35 [id number]. Other emphysema (HCC) 01/11/2019 Chest pain Atrial fibrillation (HCC) CHF (congestive heart failure) (HCC) Heart murmur Hyperlipidemia Diabetes mellitus (HCC) Stroke (HCC) Sleep apnea Sinus bradycardia 08/28/2017 Atrial flutter (HCC) 01/21/2019 Coronary artery disease Family History Medical History Relation Name Comments Coronary artery disease Daughter Diabetes Daughter Heart attack Daughter Hypertension Daughter Lung disease Daughter Sleep apnea Daughter Abdominal Aortic Aneurysm Father Coronary artery disease Father Diabetes Father Family history of diabetes mellitus - (Added by TW Conv) Coronary artery disease Mother Fami ly history of coronary artery disease - (Added by TW Conv) Diabetes Mother Family history of diabetes mellitus - (Added by TW Conv) Heart attack Mother Heart failure Mother Family history of CHF (congestive heart failure) - (Added by TW Conv)/Family history of heart failure - (Added by TW Conv)/Family history of CHF (congestive heart failure) - (Added by TW Conv) Hypertension Mother Peripheral vascular disease Mother Anesthesia problems Neg Hx Relation Name Status Comments Daughter Alive Father (Age 84) AAA ruptur e Mother Mi 1981 Social History Tobacco Use Types Packs/Day Years Used Date Smoking Tobacco: Former Cigarettes 1 54 S tarted: 1961 Passive Smoke Exposure: Past Smokeless Tobacco: Never Tobacco Cessation:Counseling Given: Not Answered Alcohol Use Standard Drinks/Week Comments No 0 (1 standard drink = 0.6 oz pur e alcohol) minimal [facility] Utilities Answer Date Recorded In the past 12 months has th e electric, gas, oil, or water company [...] often do you attend chur ch or orthodox services? Never 02/03/2025 Do you belong to any clubs o r organizations such as advent groups, unions, fraternal or athletic groups, or [...] in a alf (including now)? No 03/14/2022 Housing Stability Vital Sign Answer Sebas e Recorded In the last 12 months, was t here a time when you were not able to pay the mortgage or rent on time? No 02/03/2025 In the past 12 months, how m any times have you moved where you were living? 0 02/03/2025 At any time in the past 12 m [facility], were you homeless or living in a alf (including now)? No 02/03/2025 Personal Safety Answer Date Recorded Have you ever been in or are you currently in a harmful physical or emotional relationship or is someone making you feel afraid or unsafe? 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 Not on file Not on file Not on file Obstetrics History Para Term AB IAB SAB Ectopic Multiple Livin g Live Births 1 1 Date Outcome GA Total Labor Labor/2nd/3rd Weight Sex Type Anes PTL Yisel A1 A5 Name Clin Para Last Filed Vital Signs Vital Sign Reading Time Taken Comments Blood Pressure 110/66 04/13/2025 10:38 AM CDT Pulse 61 04/13/2025 10:38 AM CDT Temperature 36.6 C (97.9 F) 04/13/2025 10:38 AM CDT Respiratory Rate 26 03/06/2025 11:30 AM CDT Oxygen Saturation 98% 03/20/2025 10:51 AM CDT Inhaled Oxygen Concentration - - Weight 103 kg (227 lb) 04/13/2025 10:38 AM CDT Height 167.6 cm (5' 6) 04/13/2025 10:38 AM CDT Body Mass Index 36.64 04/13/2025 10:38 AM CDT Plan of Treatment Upcoming Encounters Date Type Department Care Team (Late st Contact Info) Description 05/03/2025 10:00 AM CDT Hospital Encounter [facility] Endoscopy [id number] [address] [place] [address] Sea Ignacio MD [address] [place] [address] 05/03/2025 10:00 AM CDT - 05/03/2025 10:45 AM CDT Surgery [facility] Endoscopy [address] Tayla Irahetaqing [place] [address] Sea Ignacio MD [address] [place] [address] COLONOSCOPY Scheduled Procedures Name Priority Associated Diagnoses Date/Ti me COLONOSCOPY Iron deficiency anemia, unspecified iron deficiency anemia type Abnormal colonoscopy 05/03/2025 10:00 AM CDT Health Maintenance Due Date Last Done Comments Albumin Creatinine Ratio, Urine 1943 Dilated Eye Exam 1943 Foot Exam 1943 Zoster Vaccine (1 of 2) 1962 Well Visit 65+ 2008 DTaP/Tdap/Td Vaccine (2 - Td or Tdap) 09/24/2022 09/24/2012 Depression Screening 03/13/2023 03/13/2022 Osteoporosis Screening-Bone Density Scan 04/15/2024 04/15/2022, 04/02/2021, 01/11/2019 Influenza Vaccine (#1) 2025 , 07/26/2019, 07/15/2018, Additional history exists Hemoglobin A1C 07/19/2025 01/17/2025, 09/18, 12/09/2022, Additional history exists Lipid Panel 02/02/2026 02/02/2025, 08/19, 03/03/2022, Additional history exists Fall Risk Assessment 03/06/2026 03/06/2025 eGFR 04/13/2026 04/13/2025, 03/19, 02/02/2025, Additional history exists Pneumococcal vaccine 65+ Completed 018, 07/21/2016, 06/07/2014 Hepatitis B Screening Completed 04/13/2025 Medical Devices Implanted Type Area Director Of Medical Staff Services Device Identifier Shelf Expiration Date Model / Serial / Lot [employer] Occluder Cvasc Cheli Flexible Braided Amplatzer Amulet 28mm Nitinol 0-[id number] 28 - [id number] - [id number] Implanted:Qt y: 1 on 02/01/2025 by Nicholas Benites MD PhD at [facility] Left Atrial Appendage Occluder Left: Atrial Appendage [employer] 2029 9-ACP2-0 10-028 / [id number] / [id number] Pacemaker Pacemaker Right: Chest [employer] System Closure Repair Femoral Artery Suture Mediated Perclose Prostyle 06191-93 - [id number] - [id number] Implanted:Qt y: 1 on 02/01/2025 by Nicholas Benites MD PhD at [facility] Vascular Closure Device Left: Femoral Vein [employer] 11/18/2026 87485-24 / [id number] / [id number] [employer] System Closure Repair Femoral Artery Suture Mediated Perclose Prostyle 84890-53 - [id number] - [id number] Implanted:Qt y: 1 on 02/01/2025 by Nicholas Benites MD PhD at [facility] Vascular Closure Device Right: Femoral Vein [employer] 04/17/2026 78477-20 / [id number] / [id number] Procedures Procedure Name Priority Date/Time Associated Diagnosis Comments THYROID FUNCTION CASCADE Routine 025 11:37 AM CDT Cirrhosis of liver without ascites, unspecified hepatic cirrhosis type (HCC) EGFR Routine 04/13/2025 11:37 AM CDT Cirrhosis of liver without ascites, unspecified hepatic cirrhosis type (HCC) T4, FREE Routine 04/13/2025 11:37 AM CDT PRO B-TYPE NATRIURETIC PEPTIDE Routine 04/13/2025 11:37 AM CDT Chronic diastolic congestive heart failure (HCC) PRO B-TYPE NATRIURETIC PEPTIDE Routine 04/13/2025 11:37 AM CDT Chronic diastolic congestive heart failure (HCC) GAMMA GT Routine 04/13/2025 11:37 AM CDT Cirrhosis of liver without ascites, unspecified hepatic cirrhosis type (HCC) CELESTINA QUALITATIVE WITH REFLEX TO CELESTINA QUANTITATIVE Routine 04/13/2025 11:37 AM CDT Cirrhosis of liver without ascites, unspecified hepatic cirrhosis type (HCC) COMPREHENSIVE METABOLIC PANEL Routine 04/13/2025 11:37 AM CDT Cirrhosis of liver without ascites, unspecified hepatic cirrhosis type (HCC) PROTIME-INR Routine 04/13/2025 11:37 AM CDT Cirrhosis of liver without ascites, unspecified hepatic cirrhosis type (HCC) MITOCHONDRIAL ANTIBODIES, QUALITATIVE Routine 04/13/2025 11:37 AM CDT Cirrhosis of liver without ascites, unspecified hepatic cirrhosis type (HCC) SMOOTH MUSCLE ANTIBODY, QUALITATIVE Routine 04/13/2025 11:37 AM CDT Cirrhosis of liver without ascites, unspecified hepatic cirrhosis type (HCC) [id number], TUMOR MARKER Routine 04/13/2025 11:37 AM CDT Cirrhosis of liver without ascites, unspecified hepatic cirrhosis type (HCC) HEPATITIS A ANTIBODY, IGM Routine 2024 11:37 AM CDT Cirrhosis of liver without ascites, unspecified hepatic cirrhosis type (HCC) HEPATITIS A ANTIBODY, TOTAL Routine 03/20 11:37 AM CDT Cirrhosis of liver without ascites, unspecified hepatic cirrhosis type (HCC) HEPATITIS B CORE ANTIBODY, TOTAL Routine 04/13/2025 11:37 AM CDT Cirrhosis of liver without ascites, unspecified hepatic cirrhosis type (HCC) HEPATITIS B SURFACE ANTIBODY (IMMUNE STATUS) Routine 04/13/2025 11:37 AM CDT Cirrhosis of liver without ascites, unspecified hepatic cirrhosis type (HCC) HEPATITIS B SURFACE ANTIGEN Routine 03/20 11:37 AM CDT Cirrhosis of liver without ascites, unspecified hepatic cirrhosis type (HCC) HEPATITIS C ANTIBODY Routine 04/13/2025 11:37 AM CDT Cirrhosis of liver without ascites, unspecified hepatic cirrhosis type (HCC) CBC WITH AUTO DIFFERENTIAL Routine 04/04 12:53 PM CDT BASIC METABOLIC PANEL Routine 04/04/2025 12:53 PM CDT CARDIOLOGY DOCUMENT SCAN 025 7:40 AM CDT DEVICE CHECK - REMOTE Routine 03/20/2025 3:31 AM CDT TRANSESOPHAGEAL ECHO (MARIO) W DOPPLER/CF W CARDIOVERSION W CONTRAST Routine 03/06/2025 10:22 AM CDT Atrial fibrillation, unspecified type (HCC) POC BLOOD GAS AND CHEMISTRIES, ARTERIAL Routine 03/06/2025 8:44 AM CDT SCAN - LABS 02/13/2025 POCT GLUCOSE DEVICE Routine 02/02/2025 11:39 AM CDT XR CHEST PA LATERAL 2 VIEWS IP Routine 02/02/2025 9:31 AM CDT POCT GLUCOSE DEVICE Routine 02/02/2025 7:45 AM CDT LIPID PANEL Routine 02/02/2025 5:20 AM CDT EGFR Routine 02/02/2025 5:20 AM CDT DIFFERENTIAL AUTO Routine 02/02/2025 5:20 AM CDT CBC WITH AUTO DIFFERENTIAL Routine 02/02 5:20 AM CDT BASIC METABOLIC PANEL Routine 02/02/2025 5:20 AM CDT URINALYSIS, MICROSCOPIC ONLY STAT 11:31 PM CDT DIFFERENTIAL AUTO Routine 02/01/2025 11:31 PM CDT CBC WITH AUTO DIFFERENTIAL Routine 02/01 11:31 PM CDT URINALYSIS AND REFLEX TO MICROSCOPIC AND CULTURE STAT 02/01/2025 11:31 PM CDT POCT GLUCOSE DEVICE Routine 02/01/2025 10:23 PM CDT EGFR STAT 02/01/2025 10:21 PM CDT BASIC METABOLIC PANEL STAT 02/01/2025 10:21 PM CDT POCT GLUCOSE DEVICE Routine 02/01/2025 7:47 PM CDT POCT GLUCOSE DEVICE Routine 02/01/2025 5:21 PM CDT XR CHEST 1 VIEW ED Urgent/IP Urgent 02/01/2025 5:14 PM CDT EGFR Routine 02/01/2025 5:05 PM CDT DIFFERENTIAL AUTO Routine 02/01/2025 5:05 PM CDT CBC WITH AUTO DIFFERENTIAL Routine 02/01 5:05 PM CDT COMPREHENSIVE METABOLIC PANEL Routine 02/01/2025 5:05 PM CDT MAGNESIUM Routine 02/01/2025 5:05 PM CDT APTT Routine 02/01/2025 4:38 PM CDT PROTIME-INR Routine 02/01/2025 4:38 PM CDT PERC CHELI CLOSURE W/IMPLANT (WATCHMAN) [id number] Routine 02/01/2025 4:13 PM CDT Atrial fibrillation, unspecified type (HCC) POCT ACTIVATED CLOTTING TIME, LOW RANGE Routine 02/01/2025 3:44 PM CDT POCT GLUCOSE DEVICE Routine 02/01/2025 3:32 PM CDT POCT ACTIVATED CLOTTING TIME, LOW RANGE Routine 02/01/2025 3:28 PM CDT AR AN PROCEDURE PLACEHOLDER Routine 01/17 3:03 PM CDT AR AN PROCEDURE PLACEHOLDER Routine 01/17 3:02 PM CDT AR AN ELECTIVE ENDOTRACHEAL AIRWAY Routine 02/01/2025 3:02 PM CDT POCT GLUCOSE DEVICE Routine 02/01/2025 12:25 PM CDT TYPE AND SCREEN STAT 02/01/2025 12:20 PM CDT PROTIME-INR STAT 02/01/2025 11:30 AM CDT US ABDOMEN COMPLETE W LIVER DOPPLER (C) Schedule Routine, Read Routine (OP Routine) 02/01/2025 11:02 AM CDT GAVE (gastric antral vascular ectasia) Abnormal liver enzymes Abnormal findings on esophagogastroduodenoscopy (EGD) Abnormal results of liver function studies LIVER ELASTOGRAPHY W/O IMAGING W/I&R Routine 02/01/2025 9:38 AM CDT Abnormal colonoscopy GAVE (gastric antral vascular ectasia) Abnormal liver enzymes PROTIME-INR Routine 01/27/2025 SURGICAL PATHOLOGY Routine 01/19/2025 1:16 PM CDT Iron deficiency anemia, unspecified iron deficiency anemia type Gastrointestinal hemorrhage, unspecified gastrointestinal hemorrhage type COLON TUMOR ABLATION WITH DILATION 01/19/2025 1:06 PM CDT Iron deficiency anemia, unspecified iron deficiency anemia type Gastrointestinal hemorrhage, unspecified gastrointestinal hemorrhage type ESOPHAGOGASTRODUODENOSCOPY BIOPSY 01/19/2025 1:06 PM CDT Iron deficiency anemia, unspecified iron deficiency anemia type Gastrointestinal hemorrhage, unspecified gastrointestinal hemorrhage type EGD 01/19/2025 12:51 PM CDT COLONOSCOPY 01/19/2025 12:50 PM CDT POCT GLUCOSE DEVICE Routine 01/19/2025 12:38 PM CDT PROTIME-INR STAT 01/19/2025 11:20 AM CDT History of Coumadin therapy Diabetes mellitus due to underlying condition with diabetic chronic kidney disease, unspecified CKD stage, 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) CARDIOLOGY DOCUMENT SCAN 025 10:[address] HEART MORPHOLOGY W CONTRAST Schedule Routine, Read Routine (OP Routine) 01/17/2025 2:18 PM CDT Atrial fibrillation, unspecified type (HCC) POCT CREATININE - DEVICE Routine 025 1:07 PM CDT EGFR Routine 01/17/2025 12:38 PM CDT Preop testing DIFFERENTIAL AUTO Routine 01/17/2025 12:38 PM CDT Atrial fibrillation, unspecified type (HCC) COMPREHENSIVE METABOLIC PANEL Routine 01/17/2025 12:38 PM CDT Preop testing TYPE AND SCREEN Routine 01/17/2025 12:38 PM CDT Preop testing CBC WITH AUTO DIFFERENTIAL Routine 01/17 12:38 PM CDT Atrial fibrillation, unspecified type (HCC) URINALYSIS AND REFLEX TO MICROSCOPIC AND CULTURE Routine 01/17/2025 12:38 PM CDT Atrial fibrillation, unspecified type (HCC) POCT HEMOGLOBIN A1C Routine 01/17/2025 11:45 AM CDT DEXA APPENDICULAR BONE DENSITY Schedule Routine, Read Routine (OP Routine) 01/11/2019 2:40 PM CDT longterm current use of inhaled steroid Chronic obstructive pulmonary disease, unspecified COPD type (HCC) H/O inhaled steroid therapy from Last 3 Months or Most Recently Relevant to Health Maintenance Results * CELESTINA ab ql w/rflx to CELESTINA qn (04/13/2025 11:37 AM CDT) CELESTINA Negative Comment: Interpretive Data Normal range for CELESTINA Qualitative Antibody = Negative. 1. CELESTINA is performed using indirect immunofluorescence against HEp-2 cells 2. CELESTINA titers are performed on all positive qualitative results. 3. A significantly positive CELESTINA result is defined as a positive nuclear fluorescence at a titer of 1:80 or greater. 4. 15% of normal people above age 65 have significantly positive CELESTINA results. 5% or less of normal people age 65 or under have significantly positive CELESTINA results. Current interpretive data was last revised on 2020. Blood 04/13/2025 11:3 7 AM CDT 04/13/2025 12:19 PM CDT us Natalia Pino NP LAB BLOOD ORDERABLES Fin al Result [facility] Department [place] [address] * (ABNORMAL) eGFR (04/13/2025 11:37 AM CDT) eGFR 37(L) >=60 mL/min/1. 73 m2 Comment: Interpretive Data Reference Interval Normal >/= 90 mL/min/1.73m2 Mildly decreased* 60 - 89 mL/min/1.73m2 Mildly to moderately decreased 45 - 59 mL/min/1.73m2 Moderately to severely decreased 30 - 44 mL/min/1.73m2 Severely decreased 15 - 29 mL/min/1.73m2 Kidney Failure < 15 mL/min/1.73m2 *Relative to young adult level Estimated glomerular filtration rate is determined by the 2020 CKD-EPI equation recommended by the National Kidney Foundation (A Unifying Approach to GFR Estimation: Recommendations of the NKF-ASK Task Force on Reassessing the Inclusion of Race in Diagnosing Kidney Disease, JASN 2020). The CKD-EPI equation should not be used for patients with unstable renal function and has not been validated in children and those over 70. Current interpretive data was last reviewed 2021. Blood 04/13/2025 11:3 7 AM CDT 04/13/2025 12:19 PM CDT Natalia Pino NP LAB BLOOD ORDERABLES Fin al Result Performing Organization Address [facility]/ZIP Co de Phone Number [facility] Department [place] [address] * Smooth muscle antibody, qualitative (04/13/2025 11:37 AM CDT) Anti-smooth muscle Negative Negative Blood 04/13/2025 11:3 7 AM CDT 04/13/2025 12:19 PM CDT Natalia Pino NP LAB BLOOD ORDERABLES Fin al Result [facility] [place] [address] * (ABNORMAL) Pro B-type natriuretic peptide (04/13/2025 11:37 AM CDT) NT-proBNP 1,297(H) <=450 pg/mL Comment: Interpretive Comments: A. Dyspnea in Acute Care Setting All Ages: < 300 pg/ml, acute heart failure unlikely. < 50 yrs: 300 - 450 pg/ml, further investigation warranted. > 450 pg/ml, acute heart failure likely. 50 - 74 yrs: 300 - 900 pg/ml, further investigation warranted. > 900 pg/ml, acute heart failure likely . > or = 75 yrs: 450 - 1800 pg/ml, further investigation warranted. > 1800 pg/ml, acute heart failure likely. B. Non-acute Setting < 75 yrs < 125 pg/ml, rules out heart failure. > or = 125 pg/ml, further investigation warranted. > or = 75 yrs < 450 pg/ml, rules out heart failure. > or = 450 pg/ml, further investigation warranted. - Knowledge of each individual patient's NT-proBNP range may be more useful than using similar cut-points for every patient. Please note that marked elevations in NT-proBNP levels may be observed in state other than Left Ventricular Congestive Failure, including: acute coronary syndromes, right heart strain/failure (including pulmonary embolism and cor pulmonale), critical illness, renal failure, as well as advanced age. - References: 1. Feliciano BATEMAN et.al. Eur Heart J. 2006:27:330-337. 2. Jorge Luis RW, Deisi AM. J. AM Júnior Cardiol: Cardiovasc Imag. 2009;2: 216- 225. Interpretive Data Last Revised Date: 2018. Blood 04/13/2025 11:3 7 AM CDT 04/13/2025 12:19 PM CDT Chanel Ponce NP LAB BLOOD ORDERABLES Final Result [facility] [place] [address] * (ABNORMAL) Pro B-type natriuretic peptide (04/13/2025 11:37 AM CDT) NT-proBNP 1,307(H) <=450 pg/mL Comment: Interpretive Comments: A. Dyspnea in Acute Care Setting All Ages: < 300 pg/ml, acute heart failure unlikely. < 50 yrs: 300 - 450 pg/ml, further investigation warranted. > 450 pg/ml, acute heart failure likely. 50 - 74 yrs: 300 - 900 pg/ml, further investigation warranted. > 900 pg/ml, acute heart failure likely . > or = 75 yrs: 450 - 1800 pg/ml, further investigation warranted. > 1800 pg/ml, acute heart failure likely. B. Non-acute Setting < 75 yrs < 125 pg/ml, rules out heart failure. > or = 125 pg/ml, further investigation warranted. > or = 75 yrs < 450 pg/ml, rules out heart failure. > or = 450 pg/ml, further investigation warranted. - Knowledge of each individual patient's NT-proBNP range may be more useful than using similar cut-points for every patient. Please note that marked elevations in NT-proBNP levels may be observed in state other than Left Ventricular Congestive Failure, including: acute coronary syndromes, right heart strain/failure (including pulmonary embolism and cor pulmonale), critical illness, renal failure, as well as advanced age. - References: 1. Feliciano BATEMAN et.al. Eur Heart J. 2006:27:330-337. 2. Jorge Luis RW, Deisi DAVIS. J. AM Júnior Cardiol: Cardiovasc Imag. 2009;2: 216- 225. Interpretive Data Last Revised Date: 2018. Blood 04/13/2025 11:3 7 AM CDT 04/13/2025 12:19 PM CDT us Chanel Ponce NP LAB BLOOD ORDERABLES Final Result [facility] Department [place] [address] * (ABNORMAL) Thyroid Function [place] (04/13/2025 11:37 AM CDT) TSH 5.23(H) 0.30 - 4.20 mcIUnit/mL Blood 04/13/2025 11:3 7 AM CDT 04/13/2025 12:19 PM CDT Lopez Pool MD LAB BLOOD ORDERABLES Final Re sult Performing Organization Address [facility] Co de Phone Number [facility] [place] [address] * Mitochondrial antibodies, qualitative (04/13/2025 11:37 AM CDT) Pathologist [facility] Anti-mitochond rial Negative Negative Blood 04/13/2025 11:3 7 AM CDT 04/13/2025 12:19 PM CDT Natalia Pino NP LAB BLOOD ORDERABLES Fin al Result Performing Organization Address [facility] de Phone Number [facility] [place] [address] * Hepatitis C antibody Blood (04/13/2025 11:37 AM CDT) Pathologist [facility] Hep C Ab Nonreactive Nonreactive Comment:Antibodies to HCV no t detected. Does NOT exclude the possibility of recent exposure to HCV. Current interpretive data was last revised on 22 Blood 04/13/2025 11:3 7 AM CDT 04/13/2025 12:19 PM CDT Natalia Pino NP LAB MICROBIOLOGY - GENER AL ORDERABLES Final Result Performing Organization Address [facility] Co de Phone Number [facility] [place] [address] * Hepatitis A antibody, IgM Blood (04/13/2025 11:37 AM CDT) Pathologist [facility] Hep A IgM Nonreactive Nonreactive Blood 04/13/2025 11:3 7 AM CDT 04/13/2025 12:19 PM CDT Natalia Pino NP LAB MICROBIOLOGY - GENER AL ORDERABLES Final Result Performing Organization Address City/[facility] Co de Phone Number [facility] [place] [address] * Hepatitis A antibody, total Blood (04/13/2025 11:37 AM CDT) Hep A total Nonreactive Nonreactive Blood 04/13/2025 11:3 7 AM CDT 04/13/2025 12:19 PM CDT Natalia Xiao Pino NATIONAL ACCOUNT EXECUTIVE LAB MICROBIOLOGY - GENER AL ORDERABLES Final Result Performing Organization Address [facility] Phone Number [facility] Department [place] [address] * [id number], Tumor Marker (04/13/2025 11:37 AM CDT) Pathologist [facility] alpha Fetoprotein 5.9 <=8.3 ng/mL Comment: Interpretive Data The Brooks AFP assay procedure was used. Results from different manufacturers or methods may not be comparable. Serial testing should be performed using the same method. 0-1 month. AFP concentrations may reach or exceed 100,000 ng/mL after depending on gestational age and weight. 1-3 months 50 1000 ng/ml 3-6 months 10 500 ng/ml 6-12 months 3.0 100 ng/ml >1 year 0.0 8.3 ng/ml References Kecia Y. et al. J. Ped Surg 1978;13:155-156 Aj Wheat et al. Clin Chem Lab Med 2018;57:783-797 Chang Mendez et al. Clin Chem 2014;7221-5422. Current interpretive data was last revised 2022. Blood 04/13/2025 11:3 7 AM CDT 04/13/2025 12:19 PM CDT Natalia Pino NP LAB BLOOD ORDERABLES Fin al Result Performing Organization Address City/State/[facility] Co de Phone Number [facility] [place] [address] * Hepatitis B core antibody, total Blood (04/13/2025 11:37 AM CDT) Hep B core IgG/IgM Nonreactive Nonreactive Blood 04/13/2025 11:3 7 AM CDT 04/13/2025 12:19 PM CDT Natalia Pino NP LAB MICROBIOLOGY - GENER AL ORDERABLES Final Result Performing Organization Address [facility] [place] [address] * Hepatitis B surface antibody (immune status) Blood (04/13/2025 11:37 AM CDT) HBsAb (immune status) Nonreactive Comment:This result is consi stent with a lack of immunity to Hepatitis B Virus when used in the setting of routine screening. Current interpretative data was last revised on 22 Blood 04/13/2025 11:3 7 AM CDT 04/13/2025 12:19 PM CDT Natalia Pino NP LAB MICROBIOLOGY - GENER AL ORDERABLES Final Result Performing Organization Address City/[facility] [place] [address] * Hepatitis B Surface Antigen Blood (04/13/2025 11:37 AM CDT) HepBsAg Nonreactive Nonreactive Blood 04/13/2025 11:3 7 AM CDT 04/13/2025 12:19 PM CDT Natalia Pino NP LAB MICROBIOLOGY - GENER AL ORDERABLES Final Result Performing Organization Address [facility] Co de Phone Number [facility] [place] [address] * Protime-INR (04/13/2025 11:37 AM CDT) PT 11.1 9.7 - 13.0 sec INR 1.03 0.90 - 1.20 [facility] Comment: Interpretive data Oral anticoagulant therapeutic ranges: Venous thromboembolism prophylaxis or treatment: 2.0-3.0 CARDIOLOGY Standard range: 2.0-3.0 High-intensity range: 2.5-3.5 Refer to indication-specific guidelines for appropriate target ranges for prosthetic heart valve replacement. Current interpretive data was last revised on 2019. Blood 04/13/2025 11:3 7 AM CDT 04/13/2025 12:11 PM CDT Natalia Pino NP LAB BLOOD ORDERABLES Fin al Result Performing Organization Address [facility] de Phone Number [facility] [place] [address] * T4, free (04/13/2025 11:37 AM CDT) Free T4 1.42 0.90 - 1.70 ng/dL Blood 04/13/2025 11:3 7 AM CDT 04/13/2025 12:19 PM CDT Narrative [facility] - 04/13/2025 1:22 PM CDT This test was reflexed from a TSH result. Lopez Pool MD LAB BLOOD ORDERABLES Final Re sult Performing Organization Address City/[facility] Co de Phone Number [facility] [place] [address] * (ABNORMAL) Gamma GT (04/13/2025 11:37 AM CDT) GGT 114(H) 5 - 35 Units/L Blood 04/13/2025 11:3 7 AM CDT 04/13/2025 12:19 PM CDT Natalia Pino NP LAB BLOOD ORDERABLES Fin al Result [facility] Department [place] [address] * (ABNORMAL) Comprehensive metabolic panel (04/13/2025 11:37 AM CDT) Sodium 144 135 - 145 mmol/L Potassium, pl 4.2 3.3 - 4.9 mmol/L [facility] Chloride 106 97 - 110 mmol/L [facility] CO2 28 22 - 32 mmol/L [facility] Anion gap 10 2 - 15 mmol/L [facility] BUN 27(H) 6 - 25 mg/dL [facility] Creatinine 1.44(H) 0.60 - 1.10 mg/dL [facility] Glucose 120 70 - 199 mg/dL [facility] Comment: Interpretive Data Fasting glucose >/= 126 mg/dl is diagnostic for diabetes. Fasting is defined as no caloric intake for at least 8 hours. Fasting glucose between 100 mg/dl to 125 mg/dl is diagnostic of prediabetes. In a patient with classic symptoms of hyperglycemia or hyperglycemic crisis, a random glucose >/= 200 mg/dl is diagnostic for diabetes. In the absence of unequivocal hyperglycemia, results should be confirmed by repeat testing. The classification and Diagnosis of Diabetes Diabetes Care 202; 46: S19-S40. Current interpretive data was last revised 2022. Calcium 9.6 8.5 - 10.3 mg/dL [facility] Bilirubin, total 0.2 0.1 - 1.2 mg/dL [facility] Protein, pl 7.2 6.5 - 8.5 g/dL [facility] Albumin 3.7 3.5 - 5.0 g/dL [facility] Alk phos 142(H) 40 - 130 Units/L [facility] [facility] 26 7 - 45 Units/L [facility] AST 51(H) 10 - 45 Units/L [facility] Blood 04/13/2025 11:3 7 AM CDT 04/13/2025 12:19 PM CDT Natalia Pino NP LAB BLOOD ORDERABLES Fin al Result Performing Organization Address [facility] Co de Phone Number [facility] Department [place] [address] * (ABNORMAL) CBC with auto differential (04/04/2025 12:53 PM CDT) SCRIBED WBC 5.63 4.00 - 10.80 k/cumm TXP NO LAB FOUND SCRIBED Hemoglobin 10.8(A) 12.0 - 16.0 g/dL TXP NO LAB FOUND SCRIBED Hematocrit 35.9(A) 36.0 - 47.0 % TXP NO LAB FOUND SCRIBED Platelets 230 150 - 350 k/cumm TXP NO LAB FOUND Blood 04/04/2025 12:5 3 PM CDT Lopez Pool MD LAB BLOOD ORDERABLES Final Re sult Performing Organization Address [facility] Co de Phone Number TX NO LAB FOUND * (ABNORMAL) Basic metabolic panel (04/04/2025 12:53 PM CDT) SCRIBED Sodium 143 136 - 145 mmol/L TXP NO LAB FOUND SCRIBED Potassium 4.3 3.5 - 5.1 mmol/L TXP NO LAB FOUND SCRIBED Chloride 103 98 - 107 mmol/L TXP NO LAB FOUND SCRIBED Carbon Dioxide 33.6(A) 21.0 - 32.0 mmol/L TXP NO LAB FOUND SCRIBED Anion Gap 6.4 5.0 - 15.0 mmol/L TXP NO LAB FOUND SCRIBED Urea Nitrogen (BUN) 32(A) 6 - 24 mg/dl TXP NO LAB FOUND SCRIBED Creatinine 1.67(A) 0.55 - 1.02 mg/dl TXP NO LAB FOUND SCRIBED Glucose 123(A) 70 - 99 mg/dl TXP NO LAB FOUND SCRIBED Calcium 9.3 8.4 - 10.5 mg/dl TXP NO LAB FOUND SCRIBED eGFR in NonAfrican Norwegian 31 >89 TXP NO LAB FOUND Blood 04/04/2025 12:5 3 PM CDT us Lopez Pool MD LAB BLOOD ORDERABLES Final Re sult TXP NO LAB FOUND * Cardiology Document Scan (03/28/2025 7:40 AM CDT) Anatomical Region Laterality Modality Other us Nicholas Benites MD PhD CV CARDIAC SERVICES AR OCEDURES Final Result * DEVICE CHECK - REMOTE (03/20/2025 3:31 AM CDT) Anatomical Region Laterality Modality Other 03/20/2025 3:31 AM CDT Narrative 04/10/2025 10:43 AM CDT Interpretation Summary: Battery and Leads (BL) Normal parameters noted on battery and lead(s) --- 1 years remaining (this is an estimate based on prior usage) Presenting Rhythm (AR) Atrial Sensing () --- Atrial tach at 160 bpm Ventricular Pacing (CAPABILITY LEAD) --- rate 60 Arrhythmic events (AE) No new arrhythmic events in monitoring period Anticoagulation (AC) Patient is not on anticoagulant therapy Patient is status-post left atrial appendage occlusion device Transmission Information (TI) Device Summary Report Procedure Note Rosette Espinoza MD - 04/10/2025 Interpretation Summary: Battery and Leads (BL) Normal parameters noted on battery and lead(s) --- 1 years remaining(this is an estimate based on prior usage) Presenting Rhythm (AR) Atrial Sensing () --- Atrial tach at 160 bpm Ventricular Pacing (CAPABILITY LEAD) --- rate 60 Arrhythmic events (AE) No new arrhythmic events in monitoring period Anticoagulation (AC) Patient is not on anticoagulant therapy Patient is status-post left atrial appendage occlusion device Transmission Information (TI) Device Summary Report Rosette Espinoza MD CV CARDIAC SERVICES PROCEDURES Final Result * TRANSESOPHAGEAL ECHO (MARIO) W DOPPLER/CF W CARDIOVERSION W CONTRAST (03/06/2025 10:22 AM CDT) Anatomical Region Laterality Modality Echocardiography 03/06/2025 9:23 AM CDT Narrative 03/06/2025 2:56 PM CDT [facility] [place] [address] Transesophageal Echocardiographic Report Patient Name: WALKER HILLIARD L : 1945 (79y 9m) Gender: F Study Date: 03/06/2025 09:23:36 AM Ht(Inch): Wt(Lb): BSA: Corporate Manager: Location: [facility] Order Provider: NICHOLAS BENITES BMI: Ref Provider: NICHOLAS BENITES - PROCEDURES: Transesophageal Echo Report: Echocardiography, transesophageal, real-time with image documentation (2D) including probe placement, image acquisition, interpretation, and report; Doppler echocardiography, limited pulsed wave and/or continuous wave with spectral display; Doppler echocardiography color flow velocity mapping; 3D echocardiography, rendering with interpretation and reporting, not requiring post-processing on an independent workstation. Performing Physician: Performed by Adriel Tadeo & Eleazar Doan. MARIO probe placed by Eleazar Doan. Consent: Informed consent was obtained from the patient in writing. The risks and benefits of the procedure were explained in detail to the patient, including but not limited to the risk of aspiration, dysphagia, and esophageal perforation. After a thorough discussion of these risks and benefits, the patient agreed to proceed. Medications: Medication(s) given during the procedure: Propofol 130mg & Ketamine 40mg. Pre Vitals: HR: 75 bpm. RR: 20. BP: 138/54 mmHg. Sp02: 94 %. Post Vitals: HR: 75 bpm. RR: 20. BP: 138/54 mmHg. Sp02: 100 %. Additional Procedures: Following MARIO, while remaining on continuous monitoring and sedation as discussed, synchronized cardioversion with 200J was attempted. INDICATIONS: I48.91 Unspecified atrial fibrillation. FINDINGS: Left Ventricle: The left ventricle appears normal in size. Left ventricular systolic function appears normal. Right Ventricle: The right ventricule appears normal in size. Right ventricular systolic function appears normal. Left Atrium: Moderately dilated left atrium. No left atrial thrombus. An Amulet occluder device is present in the left atrial appendage. The device is well seated with no evidence of color flow into the appendage. Patient was cardioverted to NSR with 200J. Right Atrium: Moderately dilated right atrium. Linear artifact in right atrium suggestive of ICD lead. Atrial Septum: Color flow Doppler and pulse Doppler interrogation reveal predominantly left to right shunting likely from atrial septostomy measuring 0.5cm. Mitral Valve: Moderate central mitral valve regurgitation. VCW: 0.4cm. Aortic Valve: Aortic cusps appear moderately calcified. No aortic regurgitation seen. Moderate aortic valve stenosis with Aortic valve area: 1.3cm2. Tricuspid Valve: There is moderate tricuspid regurgitation. Pulmonic Valve: Normal pulmonic valve structure. Aorta: There is mild (<2mm) atheroma of the descending aorta. Pulmonary Artery: Normal pulmonary artery size. Pulmonary Veins: Pulmonary veins are normal in appearance and pulse Doppler interrogation shows normal systolic predominant flow. CONCLUSIONS: 1. Moderately dilated left atrium. An Amulet occluder device is present in the left atrial appendage. The device is well seated with no evidence of color flow into the appendage. Patient was cardioverted to NSR with 200J. 2. 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 3. Moderate central mitral valve regurgitation. VCW: 0.4cm. 4. Aortic cusps appear moderately calcified. Moderate aortic valve stenosis with Aortic valve area: 1.3cm2. 5. There is moderate tricuspid regurgitation. 6. Left ventricular systolic function appears normal. 7. The right ventricule appears normal in size. Right ventricular systolic function appears normal. ATTESTATION: I have personally reviewed and interpreted this study without fellow or resident. - DISCLAIMER: The study images and the final report will be retained in the patient chart by the Echo Laboratory for the legally required time period. This chart constitutes the legal record of any testing performed. Electronically Signed By: Adriel Tadeo MD 03/06/2025 2:56:34 PM CDT Procedure Note Adriel Bean MD - 03/06/2025 [facility] [place] [address] Transesophageal Echocardiographic Report Patient Name: WALKER HILLIARD L : 1945 (79y 9m) Gender: F Study Date: 03/06/2025 09:23:36 AM Ht(Inch): Wt(Lb): BSA: Corporate Manager: Location: [facility] Order Provider: NICHOLAS BENITES BMI: Ref Provider: NICHOLAS BENITES - PROCEDURES: Transesophageal Echo Report: Echocardiography, transesophageal, real-timewith image documentation (2D) including probe placement, image acquisition,interpretation, and report; Doppler echocardiography, limited pulsed wave and/or continuouswave with spectral display; Doppler echocardiography color flow velocity mapping; 3D echocardiography, rendering with interpretation and reporting, notrequiring post-processing on an independent workstation. Performing Physician: Performed by Adriel Tadeo & Eleazar Doan.MARIO probe placed by Eleazar Daon. Consent: Informed consent was obtained from the patient in writing. Therisks and benefits of the procedure were explained in detail to the patient,including but not limited to the risk of aspiration, dysphagia, and esophageal perforation.After a thorough discussion of these risks and benefits, the patient agreed toproceed. Medications: Medication(s) given during the procedure: Propofol 130mg &Ketamine 40mg. Pre Vitals: HR: 75 bpm. RR: 20. BP: 138/54 mmHg. Sp02: 94 %. Post Vitals: HR: 75 bpm. RR: 20. BP: 138/54 mmHg. Sp02: 100 %. Additional Procedures: Following MARIO, while remaining on continuousmonitoring and sedation as discussed, synchronized cardioversion with 200J wasattempted. INDICATIONS: I48.91 Unspecified atrial fibrillation. FINDINGS: Left Ventricle: The left ventricle appears normal in size. Leftventricular systolic function appears normal. Right Ventricle: The right ventricule appears normal in size. Rightventricular systolic function appears normal. Left Atrium: Moderately dilated left atrium. No left atrial thrombus. AnAmulet occluder device is present in the left atrial appendage. The device is well seatedwith no evidence of color flow into the appendage. Patient was cardioverted to NSRwith 200J. Right Atrium: Moderately dilated right atrium. Linear artifact in rightatrium suggestive of ICD lead. Atrial Septum: Color flow Doppler and pulse Doppler interrogation revealpredominantly left to right shunting likely from atrial septostomy measuring 0.5cm. Mitral Valve: Moderate central mitral valve regurgitation. VCW: 0.4cm. Aortic Valve: Aortic cusps appear moderately calcified. No aorticregurgitation seen. Moderate aortic valve stenosis with Aortic valve area: 1.3cm2. Tricuspid Valve: There is moderate tricuspid regurgitation. Pulmonic Valve: Normal pulmonic valve structure. Aorta: There is mild (<2mm) atheroma of the descending aorta. Pulmonary Artery: Normal pulmonary artery size. Pulmonary Veins: Pulmonary veins are normal in appearance and pulseDoppler interrogation shows normal systolic predominant flow. CONCLUSIONS: 1. Moderately dilated left atrium. An Amulet occluder device is present inthe left atrial appendage. The device is well seated with no evidence of color flowinto the appendage. Patient was cardioverted to NSR with 200J. 2. 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 3. Moderate central mitral valve regurgitation. VCW: 0.4cm. 4. Aortic cusps appear moderately calcified. Moderate aortic valvestenosis with Aortic valve area: 1.3cm2. 5. There is moderate tricuspid regurgitation. 6. Left ventricular systolic function appears normal. 7. The right ventricule appears normal in size. Right ventricular systolicfunction appears normal. ATTESTATION: I have personally reviewed and interpreted this study without fellow orresident. - DISCLAIMER: The study images and the final report will be retained in the patientchart by the Echo Laboratory for the legally required time period. This chart constitutesthe legal record of any testing performed. Electronically Signed By: Adriel Tadeo MD 03/06/2025 2:56:34 PM CDT us Nicholas Benites MD PhD CV ECHO PROCEDURES Fin al Result * POC Blood Gas and Chemistries, Arterial - (03/06/2025 8:44 AM CDT) K POC 3.5 3.3 - 4.9 mmol/L Comment: Interpretive Data Not all point of care methods assess for hemolysis. Confirm with instrument and retest K+ if not consistent with clinical signs and symptoms. Current Interpretive Data was last revised on 2024. Glucose, POC 139 70 - 199 mg/dL [facility] Blood 03/06/2025 8:44 AM CDT 03/06/2025 8:44 AM CDT us Juan David Vargas RN LAB POCT ORDERABLES - DEV ICE Final Result [facility] Department [place] [address] * SCAN - LABS (02/13/2025) us Provider Scanning Final Result * (ABNORMAL) POCT glucose (02/02/2025 11:39 AM CDT) Glucose, POC 207(H) 70 - 199 mg/dL Blood 02/02/2025 11:3 9 AM CDT 02/02/2025 11:39 AM CDT Nicholas Benites MD PhD LAB POCT ORDERABLES - DEVICE Final Result [facility] Department [place] [address] * XR Chest PA Lateral 2 Views (02/02/2025 9:31 AM CDT) Anatomical Region Laterality Modality Body, Chest N/A Computed Radiogr aphy 02/02/2025 10:2 3 AM CDT Impressions 02/02/2025 10:23 AM CDT First exam The current study is compared with the prior radiograph dated 12/06/2024. An atrio-ventricular pacer device is in place with leads overlying expected position. Surgical clips overlie left axilla. Left atrial appendage occluder in place now. The heart and mediastinal contours are normal. There is no mass or consolidation. There is no lymphadenopathy. There are no pleural effusions. There is no pneumothorax.. Second exam there is no interval change. Electronically signed by: Brooklyn Fine M.D. Narrative 02/02/2025 10:23 AM CDT Examination: 2 chests, the first a portable, the second a PA and Lateral Chest one view portable Chest PA and lateral Procedure Note Brooklyn Fine MD - 02/02/2025 Examination: 2 chests, the first a portable, the second a PA and Lateral Chest one view portable Chest PA and lateral IMPRESSION: First exam The current study is compared with the prior radiograph dated 12/06/2024. An atrio-ventricular pacer device is in place with leads overlying expected position. Surgical clips overlie left axilla. Left atrial appendage occluder in place now. The heart and mediastinal contours are normal. There is no mass or consolidation. There is no lymphadenopathy. There are no pleural effusions. There is no pneumothorax.. Second exam there is no interval change. Electronically signed by: Brooklyn Fine M.D. us Barbara Figueroa NATIONAL ACCOUNT EXECUTIVE IMG XR PROCEDURES Final Res ult * POCT glucose (02/02/2025 7:45 AM CDT) Glucose, POC 171 70 - 199 mg/dL Blood 02/02/2025 7:45 AM CDT 02/02/2025 7:45 AM CDT us Nicholas Benites MD PhD LAB POCT ORDERABLES - DEVICE Final Result [facility] Department [place] [address] * (ABNORMAL) eGFR (02/02/2025 5:20 AM CDT) eGFR 34(L) >=60 mL/min/1. 73 m2 Comment: Interpretive Data Reference Interval Normal >/= 90 mL/min/1.73m2 Mildly decreased* 60 - 89 mL/min/1.73m2 Mildly to moderately decreased 45 - 59 mL/min/1.73m2 Moderately to severely decreased 30 - 44 mL/min/1.73m2 Severely decreased 15 - 29 mL/min/1.73m2 Kidney Failure < 15 mL/min/1.73m2 *Relative to young adult level Estimated glomerular filtration rate is determined by the 2020 CKD-EPI equation recommended by the National Kidney Foundation (A Unifying Approach to GFR Estimation: Recommendations of the NKF-ASK Task Force on Reassessing the Inclusion of Race in Diagnosing Kidney Disease, JASN 2020). The CKD-EPI equation should not be used for patients with unstable renal function and has not been validated in children and those over 70. Current interpretive data was last reviewed 2021. Blood 02/02/2025 5:20 AM CDT 02/02/2025 5:37 AM CDT us Nicholas Benites MD PhD LAB BLOOD ORDERABLES F inal Result [facility] Department [place] [address] * Differential, auto (02/02/2025 5:20 AM CDT) Pathologist [facility] Neutrophil abs 4.98 1.50 - 6.50 K/cumm Imm gran abs 0.03 0.00 - 0.10 K/cumm [facility] Lymphocyte abs 0.83 0.80 - 3.30 K/cumm [facility] Monocyte abs 0.65 0.20 - 0.80 K/cumm [facility] Eosinophil abs 0.17 0.00 - 0.50 K/cumm [facility] Basophil abs 0.09 0.00 - 0.10 K/cumm [facility] Neutrophil pct 73.9 % [facility] Comment: Interpretive Data Percent cell count reference ranges are not reported, since discordance with absolute values may lead to misinterpretation of CBC data. Current Interpretive Data was last revised on 2018. Imm gran pct 0.4 % [facility] Comment: Interpretive Data Percent cell count reference ranges are not reported, since discordance with absolute values may lead to misinterpretation of CBC data. Current Interpretive Data was last revised on 2018. Lymphocyte pct 12.3 % [facility] Comment: Interpretive Data Percent cell count reference ranges are not reported, since discordance with absolute values may lead to misinterpretation of CBC data. Current Interpretive Data was last revised on 2018. Monocyte pct 9.6 % [facility] Comment: Interpretive Data Percent cell count reference ranges are not reported, since discordance with absolute values may lead to misinterpretation of CBC data. Current Interpretive Data was last revised on 2018. Eosinophil pct 2.5 % [facility] Comment: Interpretive Data Percent cell count reference ranges are not reported, since discordance with absolute values may lead to misinterpretation of CBC data. Current Interpretive Data was last revised on 2018. Basophil pct 1.3 % [facility] Comment: Interpretive Data Percent cell count reference ranges are not reported, since discordance with absolute values may lead to misinterpretation of CBC data. Current Interpretive Data was last revised on 2018. Blood 02/02/2025 5:20 AM CDT 02/02/2025 5:37 AM CDT Nicholas Benites MD PhD LAB BLOOD ORDERABLES F inal Result Performing Organization Address [facility] Co de Phone Number [facility] Department [place] [address] * (ABNORMAL) CBC with auto differential (02/02/2025 5:20 AM CDT) WBC 6.75 3.80 - 9.90 K/cumm Hgb 9.5(L) 11.9 - 15.5 g/dL [facility] Hct 31.5(L) 35.6 - 45.5 % [facility] Plt 198 150 - 400 K/cumm [facility] MPV 11.6 9.1 - 12.3 fL [facility] RBC 3.59(L) 3.90 - 5.20 M/cumm [facility] MCV 87.7 81.3 - 96.4 fL [facility] MCH 26.5(L) 27.1 - 33.3 pg [facility] MCHC 30.2(L) 32.3 - 35.7 g/dL [facility] RDW CV 19.8(H) 11.1 - 14.9 % [facility] RDW SD 63.9(H) 35.7 - 48.1 fL [facility] NRBC abs 0.00 0.00 - 0.01 K/cumm [facility] Blood 02/02/2025 5:20 AM CDT 02/02/2025 5:37 AM CDT Nicholas Benites MD PhD LAB BLOOD ORDERABLES F inal Result [facility] Department [place] [address] * (ABNORMAL) Lipid panel (02/02/2025 5:20 AM CDT) Cholesterol 219(H) 30 - 199 mg/dL Comment: Interpretive Data Ages < or = [...] Data was last revised on 2018. Triglycerides 241(H) <=149 mg/dL [facility] Comment: Interpretive Data Ages < or = [...] Data was last revised on 2018. HDL 35(L) >=40 mg/dL [facility] Comment: Interpretive Data Ages < or = [...] was last revised on 2018. LDL, calculated 140(H) <=129 mg/dL [facility] Comment: Interpretive Data Ages < or = 19 years Acceptable: <110 mg/dL Borderline high: 110-129 mg/dL High: >or= 130 mg/dL Ages > or = 20 years Optimal: <100 mg/dL Near optimal: 100-129 mg/dL Borderline high: 130-159 mg/dL High: >160 mg/dL Calculated using the Jorge LDL-C estimating equation. This equation was implemented on 2024. Prior to this date LDL-C was estimated using the Friedewald equation. Literature References: 1. Expert Panel on Integrated Guidelines for Cardiovascular Health and Risk Reduction in Children and Adolescents. Pediatrics 2011;128:S213 2. NCEP Expert Panel. Circulation 2004;110:227 3. Jorge Pat et al. SUZETTE Cardiol. 2019February 16;5(5):540-548. doi: 10.1001/jamacardio.2020.0013 Current Interpretive Data was last revised on 2024. Non-HDL Cholesterol 184 mg/dL [facility] Comment: Interpretive Data Ages < or [...] was last revised on 2018. Chol/HDL ratio 6 [facility] Blood 02/02/2025 5:20 AM CDT 02/02/2025 5:37 AM CDT Narrative [facility] - 02/02/2025 8:51 AM CDT reflex us Nicholas Benites MD PhD LAB BLOOD ORDERABLES F inal Result [facility] Department [place] [address] * (ABNORMAL) Basic metabolic panel (02/02/2025 5:20 AM CDT) [facility] Sodium 142 135 - 145 mmol/L Potassium, pl 4.0 3.3 - 4.9 mmol/L [facility] Chloride 101 97 - 110 mmol/L [facility] CO2 31 22 - 32 mmol/L [facility] Anion gap 10 2 - 15 mmol/L [facility] BUN 28(H) 6 - 25 mg/dL [facility] Creatinine 1.52(H) 0.60 - 1.10 mg/dL [facility] Glucose 167 70 - 199 mg/dL [facility] Comment: Interpretive Data Fasting glucose >/= 126 mg/dl is diagnostic for diabetes. Fasting is defined as no caloric intake for at least 8 hours. Fasting glucose between 100 mg/dl to 125 mg/dl is diagnostic of prediabetes. In a patient with classic symptoms of hyperglycemia or hyperglycemic crisis, a random glucose >/= 200 mg/dl is diagnostic for diabetes. In the absence of unequivocal hyperglycemia, results should be confirmed by repeat testing. The classification and Diagnosis of Diabetes Diabetes Care 202; 46: S19-S40. Current interpretive data was last revised 2022. Calcium 8.6 8.5 - 10.3 mg/dL [facility] Blood 02/02/2025 5:20 AM CDT 02/02/2025 5:37 AM CDT Nicholas Benites MD PhD LAB BLOOD ORDERABLES F inal Result [facility] Department [place] [address] * (ABNORMAL) Differential, auto (02/01/2025 11:31 PM CDT) [facility] Neutrophil abs 6.55(H) 1.50 - 6.50 K/cumm Imm gran abs 0.04 0.00 - 0.10 K/cumm [facility] Lymphocyte abs 0.79(L) 0.80 - 3.30 K/cumm [facility] Monocyte abs 0.75 0.20 - 0.80 K/cumm [facility] Eosinophil abs 0.10 0.00 - 0.50 K/cumm [facility] Basophil abs 0.10 0.00 - 0.10 K/cumm [facility] Neutrophil pct 78.6 % [facility] Comment: Interpretive Data Percent cell count reference ranges are not reported, since discordance with absolute values may lead to misinterpretation of CBC data. Current Interpretive Data was last revised on 2018. Imm gran pct 0.5 % [facility] Comment: Interpretive Data Percent cell count reference ranges are not reported, since discordance with absolute values may lead to misinterpretation of CBC data. Current Interpretive Data was last revised on 2018. Lymphocyte pct 9.5 % [facility] Comment: Interpretive Data Percent cell count reference ranges are not reported, since discordance with absolute values may lead to misinterpretation of CBC data. Current Interpretive Data was last revised on 2018. Monocyte pct 9.0 % [facility] Comment: Interpretive Data Percent cell count reference ranges are not reported, since discordance with absolute values may lead to misinterpretation of CBC data. Current Interpretive Data was last revised on 2018. Eosinophil pct 1.2 % [facility] Comment: Interpretive Data Percent cell count reference ranges are not reported, since discordance with absolute values may lead to misinterpretation of CBC data. Current Interpretive Data was last revised on 2018. Basophil pct 1.2 % [facility] Comment: Interpretive Data Percent cell count reference ranges are not reported, since discordance with absolute values may lead to misinterpretation of CBC data. Current Interpretive Data was last revised on 2018. Blood 02/01/2025 11:3 1 PM CDT 02/02/2025 12:04 AM CDT us Nicholas Benites MD PhD LAB BLOOD ORDERABLES F inal Result [facility] Department of Laboratories [place] [id number] * (ABNORMAL) Urinalysis reflex to microscopic and culture Urine (02/01/2025 11:31 PM CDT) Color, ur Nikki Yellow Clarity, ur Cloudy(A) Clear [facility] Specific gravity, ur 1.035(H) 1.003 - 1.030 [facility] pH, urine 6.0 [facility] Comment: Interpretive Data U rine pH is affected by diet, medications, systemic acid-base disturbances, and renal tubular function. pH may affect urinary stone formation. For example, urine pH below 6.0 may help reduce the tendency for calcium phosphate stones and pH greater than 6.0 may reduce the tendency for uric acid stone formation. Source: [facility] Current Interpretive Data was last revised on 2017 Protein, ur ql 1+(A) Negative [facility] Glucose, ur ql Negative Negative [facility] Ketones, ur Negative Negative [facility] Bilirubin, ur Negative Negative [facility] Blood, ur 3+(A) Negative [facility] Urobilinogen, ur <2.0 <2.0 mg/dL [facility] Nitrite, ur Negative Negative [facility] Leukocyte esterase, ur Negative Negative [facility] UA reflex comment Reflex to microscopic UA will be performed. [facility] Urine 02/01/2025 11:3 1 PM CDT 02/01/2025 11:56 PM CDT Nicholas Benites MD PhD LAB MICROBIOLOGY - GEN ERAL ORDERABLES Final Result [facility] Department [place] [address] * (ABNORMAL) CBC with auto differential (02/01/2025 11:31 PM CDT) WBC 8.33 3.80 - 9.90 K/cumm Hgb 10.0(L) 11.9 - 15.5 g/dL [facility] Hct 33.3(L) 35.6 - 45.5 % [facility] Plt 221 150 - 400 K/cumm [facility] MPV 11.8 9.1 - 12.3 fL [facility] RBC 3.83(L) 3.90 - 5.20 M/cumm [facility] MCV 86.9 81.3 - 96.4 fL [facility] MCH 26.1(L) 27.1 - 33.3 pg [facility] MCHC 30.0(L) 32.3 - 35.7 g/dL [facility] RDW CV 19.9(H) 11.1 - 14.9 % [facility] RDW SD 63.0(H) 35.7 - 48.1 fL [facility] NRBC abs 0.00 0.00 - 0.01 K/cumm [facility] Blood 02/01/2025 11:3 1 PM CDT 02/02/2025 12:04 AM CDT Nicholas Benites MD PhD LAB BLOOD ORDERABLES F inal Result Performing Organization Address [facility] de Phone Number [facility] Department [place] [address] * (ABNORMAL) Urinalysis, microscopic only (02/01/2025 11:31 PM CDT) Pathologist [facility] WBC, ur 6-10(A) 0 - 5 /HPF RBC, ur 11-20(A) 0 - 2 /HPF [facility] Epithelial cells, squamous, ur 1-5 0 - 5 /HPF [facility] Bacteria, ur 2+(A) [facility] Culture Reflex Comment Reflex conditions for urine culture (WBC >10) not met. [facility] Urine 02/01/2025 11:3 1 PM CDT 02/01/2025 11:56 PM CDT Nicholas Benites MD PhD LAB URINE ORDERABLES F inal Result Performing Organization Address [facility] Co de Phone Number [facility] [place] [address] * (ABNORMAL) POCT glucose (02/01/2025 10:23 PM CDT) Glucose, POC 257(H) 70 - 199 mg/dL Blood 02/01/2025 10:2 3 PM CDT 02/01/2025 10:23 PM CDT Nicholas Benitse MD PhD LAB POCT ORDERABLES - DEVICE Final Result Performing Organization Address [facility]/ZIP Co de Phone Number [facility] Department [place] [address] * (ABNORMAL) eGFR (02/01/2025 10:21 PM CDT) Pathologist [facility] eGFR 37(L) >=60 mL/min/1. 73 m2 Comment: Interpretive Data Reference Interval Normal >/= 90 mL/min/1.73m2 Mildly decreased* 60 - 89 mL/min/1.73m2 Mildly to moderately decreased 45 - 59 mL/min/1.73m2 Moderately to severely decreased 30 - 44 mL/min/1.73m2 Severely decreased 15 - 29 mL/min/1.73m2 Kidney Failure < 15 mL/min/1.73m2 *Relative to young adult level Estimated glomerular filtration rate is determined by the 2020 CKD-EPI equation recommended by the National Kidney Foundation (A Unifying Approach to GFR Estimation: Recommendations of the NKF-ASK Task Force on Reassessing the Inclusion of Race in Diagnosing Kidney Disease, JASN 2020). The CKD-EPI equation should not be used for patients with unstable renal function and has not been validated in children and those over 70. Current interpretive data was last reviewed 2021. Blood 02/01/2025 10:2 1 PM CDT 02/01/2025 10:50 PM CDT Nicholas Benites MD PhD LAB BLOOD ORDERABLES F inal Result Performing Organization Address City/[facility]/ZIP Co de Phone Number [facility] Department [place] [address] * (ABNORMAL) Basic metabolic panel (02/01/2025 10:21 PM CDT) Pathologist [facility] Sodium 137 135 - 145 mmol/L Potassium, pl 4.5 3.3 - 4.9 mmol/L [facility] Chloride 102 97 - 110 mmol/L [facility] CO2 24 22 - 32 mmol/L [facility] Anion gap 11 2 - 15 mmol/L [facility] BUN 30(H) 6 - 25 mg/dL [facility] Creatinine 1.42(H) 0.60 - 1.10 mg/dL [facility] Glucose 271(H) 70 - 199 mg/dL [facility] Comment: Interpretive Data Fasting glucose >/= 126 mg/dl is diagnostic for diabetes. Fasting is defined as no caloric intake for at least 8 hours. Fasting glucose between 100 mg/dl to 125 mg/dl is diagnostic of prediabetes. In a patient with classic symptoms of hyperglycemia or hyperglycemic crisis, a random glucose >/= 200 mg/dl is diagnostic for diabetes. In the absence of unequivocal hyperglycemia, results should be confirmed by repeat testing. The classification and Diagnosis of Diabetes Diabetes Care 2021; 46: S19-S40. Current interpretive data was last revised 2022. Calcium 8.2(L) 8.5 - 10.3 mg/dL [facility] Blood 02/01/2025 10:2 1 PM CDT 02/01/2025 10:50 PM CDT Nicholas Benites MD PhD LAB BLOOD ORDERABLES F inal Result Performing Organization Address [facility] Co de Phone Number [facility] Department [place] [address] * (ABNORMAL) POCT glucose (02/01/2025 7:47 PM CDT) Glucose, POC 278(H) 70 - 199 mg/dL Blood 02/01/2025 7:47 PM CDT 02/01/2025 7:47 PM CDT Nicholas Benites MD PhD LAB POCT ORDERABLES - DEVICE Final Result Performing Organization Address City/[facility]/ZIP Co de Phone Number [facility] Department [place] [address] * (ABNORMAL) POCT glucose (02/01/2025 5:21 PM CDT) Glucose, POC 204(H) 70 - 199 mg/dL Blood 02/01/2025 5:21 PM CDT 02/01/2025 5:21 PM CDT us Nicholas Benites MD PhD LAB POCT ORDERABLES - DEVICE Final Result [facility] [place] [address] * XR Chest 1 view (02/01/2025 5:14 PM CDT) Anatomical Region Laterality Modality Body, Chest N/A Computed Radiogr aphy 02/02/2025 10:2 3 AM CDT Impressions 02/02/2025 10:23 AM CDT First exam The current study is compared with the prior radiograph dated 12/06/2024. An atrio-ventricular pacer device is in place with leads overlying expected position. Surgical clips overlie left axilla. Left atrial appendage occluder in place now. The heart and mediastinal contours are normal. There is no mass or consolidation. There is no lymphadenopathy. There are no pleural effusions. There is no pneumothorax.. Second exam there is no interval change. Electronically signed by: Brooklyn Fine M.D. Narrative 02/02/2025 10:23 AM CDT Examination: 2 chests, the first a portable, the second a PA and Lateral Chest one view portable Chest PA and lateral Procedure Note Brooklyn Fine MD - 02/02/2025 Examination: 2 chests, the first a portable, the second a PA and Lateral Chest one view portable Chest PA and lateral IMPRESSION: First exam The current study is compared with the prior radiograph dated 12/06/2024. An atrio-ventricular pacer device is in place with leads overlying expected position. Surgical clips overlie left axilla. Left atrial appendage occluder in place now. The heart and mediastinal contours are normal. There is no mass or consolidation. There is no lymphadenopathy. There are no pleural effusions. There is no pneumothorax.. Second exam there is no interval change. Electronically signed by: Brooklyn Fine M.D. Barbara Figueroa NP IMG XR PROCEDURES Final Res ult * (ABNORMAL) eGFR (02/01/2025 5:05 PM CDT) eGFR 36(L) >=60 mL/min/1. 73 m2 Comment: Interpretive Data Reference Interval Normal >/= 90 mL/min/1.73m2 Mildly decreased* 60 - 89 mL/min/1.73m2 Mildly to moderately decreased 45 - 59 mL/min/1.73m2 Moderately to severely decreased 30 - 44 mL/min/1.73m2 Severely decreased 15 - 29 mL/min/1.73m2 Kidney Failure < 15 mL/min/1.73m2 *Relative to young adult level Estimated glomerular filtration rate is determined by the 2020 CKD-EPI equation recommended by the National Kidney Foundation (A Unifying Approach to GFR Estimation: Recommendations of the NKF-ASK Task Force on Reassessing the Inclusion of Race in Diagnosing Kidney Disease, JASN 2020). The CKD-EPI equation should not be used for patients with unstable renal function and has not been validated in children and those over 70. Current interpretive data was last reviewed 2021. Blood 02/01/2025 5:05 PM CDT 02/01/2025 5:21 PM CDT Barbara Figueroa NP LAB BLOOD ORDERABLES Final Result [facility] Department of Laboratories [place], [place] [id number] * (ABNORMAL) Differential, auto (02/01/2025 5:05 PM CDT) Neutrophil abs 8.72(H) 1.50 - 6.50 K/cumm Imm gran abs 0.13(H) 0.00 - 0.10 K/cumm [facility] Lymphocyte abs 0.63(L) 0.80 - 3.30 K/cumm [facility] Monocyte abs 0.87(H) 0.20 - 0.80 K/cumm [facility] Eosinophil abs 0.19 0.00 - 0.50 K/cumm [facility] Basophil abs 0.10 0.00 - 0.10 K/cumm [facility] Neutrophil pct 82.0 % [facility] Comment: Interpretive Data Percent cell count reference ranges are not reported, since discordance with absolute values may lead to misinterpretation of CBC data. Current Interpretive Data was last revised on 2018. Imm gran pct 1.2 % [facility] Comment: Interpretive Data Percent cell count reference ranges are not reported, since discordance with absolute values may lead to misinterpretation of CBC data. Current Interpretive Data was last revised on 2018. Lymphocyte pct 5.9 % [facility] Comment: Interpretive Data Percent cell count reference ranges are not reported, since discordance with absolute values may lead to misinterpretation of CBC data. Current Interpretive Data was last revised on 2018. Monocyte pct 8.2 % [facility] Comment: Interpretive Data Percent cell count reference ranges are not reported, since discordance with absolute values may lead to misinterpretation of CBC data. Current Interpretive Data was last revised on 2018. Eosinophil pct 1.8 % [facility] Comment: Interpretive Data Percent cell count reference ranges are not reported, since discordance with absolute values may lead to misinterpretation of CBC data. Current Interpretive Data was last revised on 2018. Basophil pct 0.9 % [facility] Comment: Interpretive Data Percent cell count reference ranges are not reported, since discordance with absolute values may lead to misinterpretation of CBC data. Current Interpretive Data was last revised on 2018. Blood 02/01/2025 5:05 PM CDT 02/01/2025 5:14 PM CDT us Barbara Figueroa NATIONAL ACCOUNT EXECUTIVE LAB BLOOD ORDERABLES Final Result Performing Organization Address [facility]/ZIP Co de Phone Number [facility] Department [place] [address] * (ABNORMAL) CBC with auto differential (02/01/2025 5:05 PM CDT) WBC 10.64(H) 3.80 - 9.90 K/cumm Hgb 10.4(L) 11.9 - 15.5 g/dL [facility] Hct 34.3(L) 35.6 - 45.5 % [facility] Plt 217 150 - 400 K/cumm [facility] MPV 12.0 9.1 - 12.3 fL [facility] RBC 3.93 3.90 - 5.20 M/cumm [facility] MCV 87.3 81.3 - 96.4 fL [facility] MCH 26.5(L) 27.1 - 33.3 pg [facility] MCHC 30.3(L) 32.3 - 35.7 g/dL [facility] RDW CV 19.3(H) 11.1 - 14.9 % [facility] RDW SD 61.9(H) 35.7 - 48.1 fL [facility] NRBC abs 0.00 0.00 - 0.01 K/cumm [facility] Blood 02/01/2025 5:05 PM CDT 02/01/2025 5:14 PM CDT Barbara Figueroa NP LAB BLOOD ORDERABLES Final Result [facility] [place] [address] * Magnesium (02/01/2025 5:05 PM CDT) Magnesium 2.0 1.4 - 2.5 mg/dL Blood 02/01/2025 5:05 PM CDT 02/01/2025 5:14 PM CDT us Barbara Figueroa NATIONAL ACCOUNT EXECUTIVE LAB BLOOD ORDERABLES Final Result [facility] Department [place] [address] * (ABNORMAL) Comprehensive metabolic panel (02/01/2025 5:05 PM CDT) Sodium 142 135 - 145 mmol/L Potassium, pl 4.1 3.3 - 4.9 mmol/L [facility] Chloride 103 97 - 110 mmol/L [facility] CO2 27 22 - 32 mmol/L [facility] Anion gap 12 2 - 15 mmol/L [facility] BUN 30(H) 6 - 25 mg/dL [facility] Creatinine 1.45(H) 0.60 - 1.10 mg/dL [facility] Glucose 191 70 - 199 mg/dL [facility] Comment: Interpretive Data Fasting glucose >/= 126 mg/dl is diagnostic for diabetes. Fasting is defined as no caloric intake for at least 8 hours. Fasting glucose between 100 mg/dl to 125 mg/dl is diagnostic of prediabetes. In a patient with classic symptoms of hyperglycemia or hyperglycemic crisis, a random glucose >/= 200 mg/dl is diagnostic for diabetes. In the absence of unequivocal hyperglycemia, results should be confirmed by repeat testing. The classification and Diagnosis of Diabetes Diabetes Care 202; 46: S19-S40. Current interpretive data was last revised 2022. Calcium 8.6 8.5 - 10.3 mg/dL [facility] Bilirubin, total 0.3 0.1 - 1.2 mg/dL [facility] Protein, pl 6.7 6.5 - 8.5 g/dL [facility] Albumin 3.4(L) 3.5 - 5.0 g/dL [facility] Alk phos 126 40 - 130 Units/L [facility] ALT 45 7 - 45 Units/L [facility] AST 85(H) 10 - 45 Units/L [facility] Blood 02/01/2025 5:05 PM CDT 02/01/2025 5:14 PM CDT us Barbara Figueroa NP LAB BLOOD ORDERABLES Final Result Performing Organization Address [facility] Co de Phone Number [facility] [place] [address] * aPTT (02/01/2025 4:38 PM CDT) aPTT 34 28 - 38 sec Comment: Interpretive Data Heparin therapeutic range: 66.0 - 100.0 seconds. Range based on correlation with therapeutic heparin activity range of 0.3 - 0.7 Units/mL. Current interpretive data was last revised on 2023. Blood 02/01/2025 4:38 PM CDT 02/01/2025 5:33 PM CDT Barbara Figueroa NP LAB BLOOD ORDERABLES Final Result Performing Organization Address [facility] de Phone Number [facility] [place] [address] * (ABNORMAL) Protime-INR (02/01/2025 4:38 PM CDT) PT 14.8(H) 9.7 - 13.0 sec INR 1.36(H) 0.90 - 1.20 [facility] Comment: Interpretive data Oral anticoagulant therapeutic ranges: Venous thromboembolism prophylaxis or treatment: 2.0-3.0 CARDIOLOGY Standard range: 2.0-3.0 High-intensity range: 2.5-3.5 Refer to indication-specific guidelines for appropriate target ranges for prosthetic heart valve replacement. Current interpretive data was last revised on 2019. Blood 02/01/2025 4:38 PM CDT 02/01/2025 5:33 PM CDT Barbara Figueroa NP LAB BLOOD ORDERABLES Final Result Performing Organization Address [facility] Co de Phone Number [facility] [place] [address] * PERC CHELI CLOSURE W/IMPLANT (WATCHMAN) [id number] (02/01/2025 4:13 PM CDT) Anatomical Region Laterality Modality X-Ray Angiograph y Narrative 02/01/2025 4:38 PM CDT Table formatting from the original result was not included. Procedure Report - [facility] Ammulet LEFT ATRIAL APPENDAGE OCCLUDER IMPLANT Patient Name: Walker Hilliard Date of : 1945 Attending (EP): Nicholas Benites MD, PhD Co-attending (IC): Vadim Wilkins MD Grant: none Referring MD: Rosette Espinoza Anesthesia: MAC Complications: None Procedures Performed: ICE Ammulet left atrial appendage occluder implantation. PATIENT HISTORY 79-year-old woman with a complex past occult past medical history including paroxysmal atrial fibrillation. She has CHADS2 Vasc risk score of 8 for age, female sex, heart failure, diabetes mellitus, and hypertension and history of stroke. She has a has bled risk of 3. She recently had a GI bleed that required a transfusion. She is awaiting GI evaluation. She is subtherapeutic on warfarin right now. PROBLEM LIST: Atrial flutter. Atypical by ECG on 05/14/2015. She is currently programmed in the DDIR mode. Status post admission for sotalol dose at 80 a day due to renal insufficiency. Currently A paced between 40% and 50%. Admitted for amiodarone and cardioversion February 2022. Status post successful cardioversion 03/18/2022. Sinus bradycardia with first-degree AV block with pacemaker implantation in 2016 using right extrathoracic subclavian. Cephalic vein was tied off. History of paroxysmal atrial flutter/atrial fibrillation. No ECGs of AF in Clinical Desktop. No history of cardioversion or prior antiarrhythmic drug use. Has brief episodes of atrial fibrillation versus very rapid atrial flutter noted on device interrogation April 2020, duration 16 seconds. Another episode of probable atrial fibrillation 03/13/2020 for about a minute. Status post cardioversion May 2024 for atrial fibrillation. Heart failure with preserved ejection fraction. Echo 2014, normal LV function, no biatrial enlargement. Echo 2018, LVEF 74%. Hypertension. Chronic obstructive pulmonary disease with a 40 pack-year history of 1-1/2 to 2 packs per day. Quit in 2005. Severe obstructive ventilatory defect, severe reduction in DLCO with air trapping. Diabetes. Sleep apnea, previously treated with CPAP. Requires oxygen 24 hours a day 2 L. History of left-sided breast cancer, status post mastectomy with modified lymph node dissection in 2014. History of a right port. Left upper extremity swelling. History of a stroke in September 2020 by characterization by inability to talk, could not count money. Hospitalized at [facility]. Six weeks of rehab. History of acute kidney injury. 2021 creatinine greater than 3. Influenza A. Hospitalization at [facility] February 2022. History of edwtr-lz-epdyyom hypoxemic respiratory failure from influenza A. She continues to use 2 L of oxygen in the evening. Elevated right ventricular pacing capture threshold. Hypothyroidism. On replacement hormone. Pulmonary nodules. Has pulmonary follow-up scheduled with PFTs. Transaminitis. Elevated AST and ALT. Lipitor discontinued 07/22/2024. Systolic murmur. Echo 2018, EF 74%, mild MR. PROCEDURE DETAILS After informed consent was obtained, the patient was brought to the Catheterization Laboratory and placed on the table in supine position. Procedure time-out was performed. General endotracheal anesthesia was provided by the Anesthesiology service. Radial arterial line was obtained for blood pressure monitoring. Arterial blood pressure, pulse oximetry, and ECG were continuously monitored during the case. Defibrillation patches were applied. Preprocedure antibiotic prophylaxis was administered. Two units of crossmatched blood were kept available in blood bank. The patient was prepped and draped in the usual sterile fashion. At baseline, the patient's rhythm was sinus rhythm. Right femoral venous access was obtained using micropuncture needle, and using modified Seldinger technique. A Preclose device was deployed. The access was upsized to place 14 Azeri Cook sheath. Left femoral venous access was obtained using micropuncture needle, and using modified Seldinger technique. A Preclose device was deployed. The access was upsized to place a long 10 Azeri Cook sheath. ICE was introduced to the RA/RV for initial imaging. There was no CHELI thrombus. CHELI body was shaped like [place]. Maximal CHELI ostial dimension measured 28 mm. Heparin was administered intravenously at serial intervals to maintain ACT between 300 and 400 sec. Trans atrial septal puncture was performed using a [employer] sheath and needle assembly, under ICE and fluoroscopic guidance. The Ammulet sheath was exchanged for the [place] sheath over the [place] wire and passed into the LA to dilate the septostomy and returned to the RA. The ICE sheath was passed into the LA through the septostomy. The Ammulet sheath was returned to the LA, and a pigtail was introduced over the Versicross wire. Mean left atrial pressure: 20 mmHg. The pigtail catheter was advanced into the CHELI, and contrast cineangiography was performed in FERRERA caudal projection. Measurements of the CHELI ostium and depth were made. The Ammulet access sheath was carefully advanced over the pigtail catheter, to line the radiopaque landing marker with the CHELI ostium. On the back table, an Ammulet delivery system with 28 mm device was flushed free of air. The pigtail catheter was removed, access sheath flushed, and using wet-to-wet connection, delivery system was advanced through the access sheath. After carefully lining the markers, the Ammulet device was unsheathed and deployed by Dr. Benites. ICE was used to confirm satisfactory positioning of the Ammulet device using standard criteria. There was no lenny device leak. Tug test was performed to confirm device anchoring and stability. The device was released. There was no pericardial effusion on ICD. Delivery system with access sheath were removed. Protamine intravenous was administered. The Preclose devices were deployed for hemostasis, and Band-Aid was applied. The patient was extubated and transferred to [facility] Holding in stable condition. The co-attendings were present to personally supervise or perform the entire procedure. CONCLUSION Successful implantation of Ammulet left atrial appendage occluder device. Implanted Hardware: Ammulet 28 mm device. PLAN / RECOMMENDATIONS Monitor femoral access site. Bedrest x 3 hours, then ambulate. Initiate ASA 81 mg and Plavix 60 mg tonight. Avoid heavy exertion, weight lifting, driving x 1 week. 45-day post implant MARIO and EP Clinic follow-up with plans to deescalate antithrombotic regimen. Nicholas Benites MD, PhD salon stylist [facility] [employer] Division of Cardiology, Section of Electrophysiology us Nicholas Benites MD PhD CV ELECTROPHYSIOLOGY P ROCS Final Result * (ABNORMAL) POCT Activated clotting time, low range (02/01/2025 3:44 PM CDT) ACT 329(H) 123 - 168 sec POC Performer [address] [facility] POC Device Number [id number] [facility] Blood 02/01/2025 3:44 PM CDT 02/01/2025 3:44 PM CDT Nicholas Benites MD PhD LAB POCT ORDERABLES - DEVICE Final Result Performing Organization Address [facility] Co de Phone Number [facility] [place] [address] * POCT glucose (02/01/2025 3:32 PM CDT) [facility] Glucose, POC 199 70 - 199 mg/dL Blood 02/01/2025 3:32 PM CDT 02/01/2025 3:32 PM CDT Nicholas Benites MD PhD LAB POCT ORDERABLES - DEVICE Final Result Performing Organization Address [facility] de Phone Number [facility] [place] [address] * (ABNORMAL) POCT Activated clotting time, low range (02/01/2025 3:28 PM CDT) ACT 253(H) 123 - 168 sec POC Performer 1310 [facility] POC Device Number [id number] [facility] Blood 02/01/2025 3:28 PM CDT 02/01/2025 3:28 PM CDT Nicholas Benites MD PhD LAB POCT ORDERABLES - DEVICE Final Result Performing Organization Address [facility] Co de Phone Number [facility] [place] [address] * AR AN PROCEDURE PLACEHOLDER (02/01/2025 3:03 PM CDT) Gerry Cisse CRNA - 02/01/2025 3:03 PM CDT Gerry Martin CRNA 02/01/2025 3:03 PM Peripheral IV Catheter Patient location: OR End time: 02/01/2025 2:55 PM Staff: Placed by: CASE MANAGEMENT SPECIALIST: Gerry Martin CRNA Preprocedure prep: Prep solution: chlorhexadine PPE: provider hat/mask and gloves PIV line: Laterality: left Site: foot Catheter size: 20 g Technique: direct visualization and palpatation Procedure details: good blood return and occlusive dressing applied Number of attempts: 1 Assessment: Events: patient tolerated procedure well with no complications us Anthony Donald MD ANESTHESIA ORDERABL ES Final Result * AR AN ELECTIVE ENDOTRACHEAL AIRWAY, AR AN PROCEDURE PLACEHOLDER (02/01/2025 3:02 PM CDT) Gerry Cisse CRNA - 02/01/2025 3:02 PM CDT Gerry Martin CRNA 02/01/2025 3:03 PM Airway Patient location: OR Urgency: elective Date/time: 02/01/2025 3:02 PM Indications for airway management: anesthesia Difficult airway: no Staff: Placed by: Anesthesiologist: Anthony Donald MD Emergent airway documentation: Risks and benefits discussed: yes Consent obtained: yes Consent given by: patient Airway prep: Preoxygenated: yes Patient position: sniffing Mask difficulty assessment: 1 - vent by mask Sedation level during airway: GA Final airway details: Final airway type: endotracheal airway Tube type: ETT ETT size: 7.0 mm Cuffed: yes Technique used for successful ETT placement: video laryngoscopy Insertion site: oral Blade type: Alvarez Video blade type: Sutherland Blade size: 3 Cormack-Lehane (direct): grade IIa - partial view of glottis Cormack-Lehane (video): grade IIa - partial view of glottis Cuff inflated with: air ETT to gums: 21 cm Placement verified by: auscultation and CO2 detection Airway secured with: silk tape Number of attempts: 1 us Anthony Donald MD ANESTHESIA ORDERABL ES Final Result * POCT glucose (02/01/2025 12:25 PM CDT) Glucose, POC 172 70 - 199 mg/dL Blood 02/01/2025 12:2 5 PM CDT 02/01/2025 12:25 PM CDT Nicholas Benites MD PhD LAB POCT ORDERABLES - DEVICE Final Result Performing Organization Address [facility] de Phone Number [facility] [place] [address] * Type and screen (02/01/2025 12:20 PM CDT) Pathologist [facility], indirect Negative ABO Rh O Negative [facility] Blood 02/01/2025 12:2 0 PM CDT 02/01/2025 1:24 PM CDT Narrative [facility] - 02/01/2025 2:32 PM CDT Has the patient had Daratumumab or Isatuximab in the past 6 months?->Unknown Loretta Francois NATIONAL ACCOUNT EXECUTIVE LAB BLOOD BANK TEST ORDER KE Final Result Performing Organization Address [facility] de Phone Number [facility] [place] [address] * (ABNORMAL) Protime-INR (02/01/2025 11:30 AM CDT) PT 14.8(H) 9.7 - 13.0 sec INR 1.36(H) 0.90 - 1.20 [facility] Comment: Interpretive data Oral anticoagulant therapeutic ranges: Venous thromboembolism prophylaxis or treatment: 2.0-3.0 CARDIOLOGY Standard range: 2.0-3.0 High-intensity range: 2.5-3.5 Refer to indication-specific guidelines for appropriate target ranges for prosthetic heart valve replacement. Current interpretive data was last revised on 2019. Blood 02/01/2025 11:3 0 AM CDT 02/01/2025 12:39 PM CDT us Loretta Francois NATIONAL ACCOUNT EXECUTIVE LAB BLOOD ORDERABLES Shalini olivier Result [facility] [place] [address] * US Abdomen Complete W Liver Doppler (C) (02/01/2025 11:02 AM CDT) Anatomical Region Laterality Modality Abdomen Right Ultrasound 02/01/2025 11:4 9 AM CDT Impressions 02/01/2025 11:49 AM CDT 1. Suggestion of very minimal liver surface nodularity which could represent early fibrosis. 2. Mild hepatic steatosis. 3. Upper limits of normal to mildly enlarged spleen. 4. Mild focal ectasia of the proximal aorta measuring up to 3.5 cm. Electronically signed by: Tania Dai M.D. Narrative 02/01/2025 11:49 AM CDT EXAMINATION: COMPLETE ABDOMINAL SONOGRAM HISTORY: Elevated liver enzymes with possible early stage cirrhosis COMPARISON: None FINDINGS: Liver: The left hemiliver is slightly increased in size. The echotexture is normal. The echogenicity is increased. There minimal surface nodularity in the left hemiliver. No focal solid lesions are visualized. Gallbladder: The gallbladder is normal in size. There are no stones or sludge within the gallbladder. There is no gallbladder wall thickening. Bile Duct: There is no intrahepatic bile duct dilatation. The diameter of the common duct is 4 mm in the proximal segment and 7 mm in the mid segment and 4 mm in the distal segment. Kidneys: There is no hydronephrosis in the visualized portions of the kidneys. Pancreas: The visualized portions of the pancreas demonstrate no focal lesions. Spleen: The spleen is mildly enlarged measuring up to 13.1 cm. Aorta: The proximal aorta with focal bulge measuring up to 3.5 cm, this area was not imaged on prior CTs. Inferior vena cava: The proximal IVC is normal. Other Findings: There is no ascites. No recanalized umbilical vein; spectral Doppler at this level is at background levels. Procedure Note Tania Dai MD - 02/01/2025 EXAMINATION: COMPLETE ABDOMINAL SONOGRAM HISTORY: Elevated liver enzymes with possible early stage cirrhosis COMPARISON: None FINDINGS: Liver: The left hemiliver is slightly increased in size. The echotexture is normal. The echogenicity is increased. There minimal surface nodularity in the left hemiliver. No focal solid lesions are visualized. Gallbladder: The gallbladder is normal in size. There are no stones or sludge within the gallbladder. There is no gallbladder wall thickening. Bile Duct: There is no intrahepatic bile duct dilatation. The diameter of the common duct is 4 mm in the proximal segment and 7 mm in the mid segment and 4 mm in the distal segment. Kidneys: There is no hydronephrosis in the visualized portions of the kidneys. Pancreas: The visualized portions of the pancreas demonstrate no focal lesions. Spleen: The spleen is mildly enlarged measuring up to 13.1 cm. Aorta: The proximal aorta with focal bulge measuring up to 3.5 cm, this area was not imaged on prior CTs. Inferior vena cava: The proximal IVC is normal. Other Findings: There is no ascites. No recanalized umbilical vein; spectral Doppler at this level is at background levels. IMPRESSION: 1. Suggestion of very minimal liver surface nodularity which could represent early fibrosis. 2. Mild hepatic steatosis. 3. Upper limits of normal to mildly enlarged spleen. 4. Mild focal ectasia of the proximal aorta measuring up to 3.5 cm. Electronically signed by: Tania aDi M.D. Amanda BELL IMG US PROCEDURES Final Result * Liver Elastography w/o Imaging W/I&R -[facility] (02/01/2025 9:38 AM CDT) Anatomical Region Laterality Modality Other Amanda BELL GI PROCEDURE ORDERABLES Edited Result - Final * (ABNORMAL) Protime-INR (01/27/2025) INR 1.90(A) 0.90 - 1.10 Blood 01/27/2025 us Historical Provider LAB BLOOD ORDERABLES Shalini olivier Result * Surgical pathology (01/19/2025 1:16 PM CDT) Tissue (Gastric/Stomach biopsy) 01/19/2025 1:16 PM CDT Narrative PATHOLOGY [facility] - 01/23/2025 8:59 AM CDT [address] [address] Tele: Clemencia Schrader MD - Timekeeper Note to Patients: This report may contain a detailed description of human tissue sent by a health care provider to the laboratory for pathologic evaluation. The content of this report is essential for diagnosis and may provide important critical findings. This information may be unfamiliar to patients to review without a medical professional present. It is advised that the patient review this report in the presence of a health care provider who can answer questions and explain the details. SURGICAL PATHOLOGY REPORT Patient Name: WALKER HILLIARD Address: [address] [place] [address] Gender: F : 1945 (Age: 79) Service: Gastro Location: [facility], Hospital #: [id number] Patient Type: [facility] SAME DAY SURGERY Taken: 01/19/2025 Received 01/20/2025 Reported: 01/23/2025 Physician(s): Diana Prado M.D. Nichole Michele Lewis, PA-C DIAGNOSIS: Stomach, antrum, biopsy: - Changes consistent with iron pill gastritis b/01/23/2025 08:59 Examining Pathologist: Shanika Valenzuela M.D. Report Reviewed and Electronically Signed By Shanika Valenzuela M.D. SPECIMEN TYPE: A: ANTRUM CLINICAL IMPRESSION AND HISTORY: Iron-deficiency anemia. EGD at outside hospital 10/2024 showed gastric ulcer/erosion. 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 GROSS DESCRIPTION: Received in formalin in a single container with the patient's name, WALKER HILLIARD labeled antrum are multiple elizalde tissue fragments, 0.8 x 0.2 x 0.2 cm in aggregate. The specimen is submitted entirely in cassette A1. [facility]/01/20/2025 08:32 [facility] MICROSCOPIC DESCRIPTION: Sections of the antrum biopsy show reactive changes accompanied by scant, brown crystalline debris in the superficial lamina propria and focal, minimal acute inflammation. Neither erosion nor ulceration is seen. Vascular ectasia is not present nor are fibrin thrombi. Intestinal metaplasia is not seen. Helicobacter-like organisms are not identified on H&E stained sections. Clerical Data Follows A; [id number] REPORT IMAGES AND/OR SCANNED DOCUMENTS ONLY VIEWABLE IN PDF FORMAT The immunohistochemical test(s) cited in this report, if any, was developed and its performance characteristics determined by [facility] Pathology Department. It has not been cleared or approved by the U.S. Food and Drug Administration. The FDA has determined that such clearance or approval is not necessary. This test is used for clinical purposes. It should not be regarded as investigational or for research. [facility] is certified under the Clinical Laboratory Improvement Amendments of 1988 (CLIA) as qualified to perform high complexity testing. Immunostains were performed on formalin-fixed paraffin embedded tissue using a polymer diaminobenzidine chromogen detection system. Antibodies used may include clone SP1 (rabbit monoclonal, estrogen receptor), clone 1E2 (rabbit monoclonal progesterone receptor), Ki-67 (rabbit monoclonal, 30-9), CD117 (rabbit polyclonal, c-kit), and anti-Her-2/nette (4B5) (rabbit monoclonal primary antibody). In the event that immunohistochemistry or special stains have been performed, attending physician has confirmed appropriateness of controls. Frozen section, operating room consultation, gross examination and dissection, and case sign out may have been performed in part or completely in the following laboratories: [facility], [facility], [place], [place] [address] [place] [address], [address] [place] [address]. Humza Ledesma MD LAB PATHOLOGY ORDERABLES Fi nal Result PATHOLOGY [facility] Laboratory Receiving [address] [place] [address] * EGD (01/19/2025 12:51 PM CDT) Anatomical Region Laterality Modality Other Narrative Procedure Note Humza Ledesma MD - 01/19/2025 12:51 PM CDT ENDOSCOPY LAB Patient Name: Walker Hilliard Procedure Date: 01/19/2025 12:51 PM Admit Type: Outpatient Room: [facility] Date of : 1945 Instrument Name: [id number] Gender: Female Note Status: Finalized Procedure: Upper GI endoscopy Indications: Iron deficiency anemia; 79yo F with PMH PAF, DM,HTN, CVA, Aflutter, COPD with severe ventilatory defecton 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 Chronic anemia when on anticoagulation with multiple prior evlauations without clear etiology.Hgb improved off anticoagulation, however givenAflutter and CVA desire to continue. Hgb 10.6 most recently. Plan for eval for LAAO. EGD at OSH 10/2024 withgastric ulcer/erosions. Per family last colonsocopy [id number]. Plan for EGD/Colon to evaluate. Providers: Humza Ledesma M.D. Referring MD: Amanda Bowser, IRVIN, Hema Castaneda M.D., Loepz Pool M.D., Rosette Espinoza M.D.,Nicholas Benites M.D. Medicines: Monitored Anesthesia Care Complications: No immediate complications. Estimated blood loss:None. Estimated Blood Loss: Estimated blood loss: none. Procedure: Pre-Anesthesia Assessment: - The risks and benefits of the procedure and the sedation options and risks were discussed with the patient. All questions were answered and informed consent was obtained. - Immediately prior to administration ofmedications, the patient was re-assessed for adequacy to receive sedatives. - The anesthesia plan was to use monitoredanesthesia care (MAC). The benefits, risks, and alternatives to theprocedure and sedation were discussed and informed consentwas obtained. The scope was passed under direct vision. The Endoscope was introduced through the mouth, and advanced to the second part of duodenum. The upperGI endoscopy was accomplished without difficulty. The patient tolerated the procedure well. Findings: The examined esophagus was normal. There was mild, nodular, non-bleeding gastropathy in the antrum which may represent early gastric antral vascular ectasia. Biopsies weretaken with a cold forceps for histology. The examined duodenum was normal. Impression: - Normal esophagus. 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 Biopsied. - Normal examined duodenum. Recommendation: - Observe patient's clinical course followingtoday's EGD. - Await pathology - Reivewed coronary CT images with radiology inlight of the ?GAVE on endoscopy and patient may haveearly cirrhosis (L liver hypertrophy, splenomegaly, umbilical vein prominence) on imaging. Wouldconsider formal evaluation with AbdUS withdoppler/elastography and consideration of hepatology evaluation as appropriate. Reviewed findings with Bj. - Proceed with Colonoscopy. Further recommendations per colonsocopy report. - Resume home medications and diet. - Return to primary care physician as previously scheduled. - In the unusual situation that you developabdominal pain, bleeding or other significant problems in the days following this procedure please call my officeat [phone] ([phone]) to speak to my nurses. After hours and evenings please call [phone] speak to the GI fellow brush fabrication supervisor. Please tell themthat Dr. Ledesma did your procedure and that your were instructed to have the fellow call me or thephysician covering for me to discuss the management of your condition. If you have an urgent problem, please goto the nearest emergency room and have the ER doctorcall my office during the day or [facility] transfer ([phone]) center after hours and weekends to arrange admission or transfer to our facility. - Call my nurse Elidia Wood RN in the GI office at [phone] for your final pathology results in 7 days. Attending Participation: I personally performed the entire procedure. Electronically Signed By: Humza Ledesma M.D. Humza Ledesma M.D. 01/19/2025 2:08:16 PM This document was signed electronically. Number of Addenda: 0 Note Initiated On: 01/19/2025 12:51 PM Scope In: Scope Out: us Humza Ledesma MD ENDOSCOPY PROCEDURES Final Result * Colonoscopy (01/19/2025 12:50 PM CDT) Anatomical Region Laterality Modality Other Narrative Procedure Note Humza Ledesma MD - 01/19/2025 12:50 PM CDT ENDOSCOPY LAB Patient Name: Walker Hilliard Procedure Date: 01/19/2025 12:50 PM Admit Type: Outpatient Room: [facility] Date of : 1945 Instrument Name: JAYANT Gender: Female Note Status: Finalized Procedure: Colonoscopy Indications: Iron deficiency anemia; 79yo F with PMH PAF, DM,HTN, CVA, Aflutter, COPD with severe ventilatory defecton 2L O2. Chronic anemia when on anticoagulation with multiple prior evlauations without clear etiology.Hgb improved off anticoagulation, however givenAflutter and CVA desire to continue. Hgb 10.6 most recently. Plan for eval for LAAO. EGD at OSH 10/2024 withgastric ulcer/erosions. Per family last colonsocopy [id number]. Plan for EGD/Colon to evaluate Providers: Humza Ledesma M.D. Referring MD: Amanda Bowser PA-C, Kiesha Varela, Hema Castaneda M.D., Nicholas Benites M.D. Medicines: Monitored Anesthesia Care Complications: No immediate complications. Estimated blood loss:None. Estimated Blood Loss: Estimated blood loss: none. Procedure: Pre-Anesthesia Assessment: - The risks and benefits of the procedure and the sedation options and risks were discussed with the patient. All questions were answered and informed consent was obtained. - Immediately prior to administration ofmedications, the patient was re-assessed for adequacy to receive sedatives. - The anesthesia plan was to use monitoredanesthesia care (MAC). The benefits, risks and alternatives of theprocedure and sedation were discussed and informed consentwas obtained. All questions were answered. Please referto the signed informed consent document in the medical record. The scope was passed under direct vision.The Colonoscope was introduced through the anus and advanced to the the cecum, identified byappendiceal orifice and ileocecal valve. The colonoscopy was performed without difficulty. The patient tolerated the procedure well. The quality of the bowel preparation was evaluated using the BBPS (BostonBowel Preparation Scale) with scores of: Right Colon = 2 (minor amount of residual staining, small fragmentsof stool and/or opaque liquid, but mucosa seen well), Transverse Colon = 3 (entire mucosa seen well withno residual staining, small fragments of stool oropaque liquid) and Left Colon = 3 (entire mucosa seen well with no residual staining, small fragments of stoolor opaque liquid). The total BBPS score equals 8. The quality of the bowel preparation was good. Thebowel preparation used was GoLYTELY via split dose instruction. Findings: The perianal and digital rectal examinations were normal. There were three medium-sized angioectasias in the cecum/proximal ascending colon and one small angioectasia in the transverse colon without evidence of bleeding. Given recurrent anemia onanticoagulation, coagulation for bleeding prevention using argon plasma wassuccessful. A total of 38 semi-sessile polyps were found in the sigmoid colon(17), transverse colon (14), ascending colon (6) and cecum (1), ranging in size from 4mm to 12mm. None of the polyps were ulcerated or had an endoscopic features of advanced histology and were unlikely a sourceof bleeding. None of the polyps appeared to require formal EMR, though saline injection may be helpful int he removal of two of the larger polyps. As the patient needs to resume coumadin as promptly aspossible and she is planned imminently for a LAAO procedure to obviate future need for anticoagultion, polypectomy was not elected to be performedin this setting in favor of repeating the colonsocopy when patient is durably off anticoagulation to reduce the risk of post-polectomy bleeding after the extensive polypectomies required. There were two medium-sized lipomas in the transverse colon. Internal hemorrhoids were found. The hemorrhoids were mild. Impression: - There were three medium-sized angioectasias inthe cecum/proximal ascending colon and one small angioectasia in the transverse colon withoutevidence of bleeding. Given recurrent anemia on anticoagulation, coagulation for bleedingprevention using argon plasma was successful. - A total of 38 semi-sessile polyps were found inthe sigmoid colon (17), transverse colon (14),ascending colon (6) and cecum (1), ranging in size from 4mmto 12mm. None of the polyps were ulcerated or had an endoscopic features of advanced histology. Theseare unlikely a source of bleeding/anemia. None of the polyps appeared to require formal EMR. As thepatient needs to resume coumadin as promptly as possibleand she is planned imminently for a LAAO procedure to obviate future need for anticoagultion, polypectomy was not elected to be performed in this setting in favor of repeating the colonsocopy when patient is durably off anticoagulation to reduce the risk of post-polectomy bleeding after the extensive polypectomies required. - Two medium-sized lipomas in the transversecolon. - Internal hemorrhoids. Recommendation: - Observe patient's clinical course followingtoday's Colonoscopy. - Resume coumadin in 24 hours and followup withyour prescribing physician your INR until in atherapeutic range. - Followup with Amanda Alonso for ongoing workup of anemia. Would recommend considering repeating the colonsocopy after the patient's upcoming cardiac procedure, when she can be durably ofanticoagulation, with plan for polypectomies at that time. Would schedule with any GI provider for 1 hour timeslot. - Resume home medications and diet. - Return to primary care physician as previously scheduled. - In the unusual situation that you developabdominal pain, bleeding or other significant problems in the days following this procedure please call my officeat [phone] ([phone]) to speak to my nurses. After hours and evenings please call [phone] speak to the GI fellow brush fabrication supervisor. Please tell themthat Dr. Ledesma did your procedure and that your were instructed to have the fellow call me or thephysician covering for me to discuss the management of your condition. If you have an urgent problem, please goto the nearest emergency room and have the ER doctorcall my office during the day or [facility] transfer ([phone]) center after hours and weekends to arrange admission or transfer to our facility. - Repeat colonoscopy (date not yet determined) for surveillance of multiple polyps. Attending Participation: I personally performed the entire procedure. Electronically Signed By: Humza Ledesma M.D. Humza Ledesma M.D. 01/19/2025 2:29:55 PM This document was signed electronically. Number of Addenda: 0 Note Initiated On: 01/19/2025 12:50 PM Scope Withdrawal Time: 0 hours 14 minutes 4 seconds Scope In: 1:23:19 PM Scope Out: 1:44:05 PM Humza Ledesma MD ENDOSCOPY PROCEDURES Final Result * POCT glucose (01/19/2025 12:38 PM CDT) Glucose, POC 168 70 - 199 mg/dL Comment: For Glucose values <35 mg/dl when Hematocrit is >60 mg/dl,the test may not accurately detect significant hypoglycemia,and testing in the Laboratory should be considered if clinically indicated. POC Performer [id number] [facility] Blood 01/19/2025 12:3 8 PM CDT 01/19/2025 12:38 PM CDT Humza Ledesma MD LAB POCT ORDERABLES - DEVIC E Final Result [facility] [address] [place] [address] * (ABNORMAL) Protime-INR (01/19/2025 11:20 AM CDT) PT 13.1(H) 9.7 - 13.0 sec INR 1.21(H) 0.90 - 1.20 [facility] Comment: Interpretive data Oral anticoagulant therapeutic ranges: Venous thromboembolism prophylaxis or treatment: 2.0-3.0 CARDIOLOGY Standard range: 2.0-3.0 High-intensity range: 2.5-3.5 Refer to indication-specific guidelines for appropriate target ranges for prosthetic heart valve replacement. Current interpretive data was last revised on 2019. Blood 01/19/2025 11:2 0 AM CDT 01/19/2025 11:28 AM CDT Humza Ledesma MD LAB BLOOD ORDERABLES Final Result [facility] [address] Department [place] [address] * Cardiology Document Scan (01/18/2025 10:35 AM CDT) Anatomical Region Laterality Modality Other Nicholas Benites MD PhD CV CARDIAC SERVICES AR OCEDURES Final Result * CT Heart Morphology W Contrast (01/17/2025 2:18 PM CDT) Anatomical Region Laterality Modality Chest N/A Computed Tomogra phy 01/17/2025 2:54 PM CDT Impressions 01/17/2025 4:10 PM CDT 1. Left atrial appendage measurements for placement of occlusion device as described. 2. No evidence of left atrial appendage thrombus. Dictated by: Landon Mcnamara MD The radiology attending physician has personally reviewed this study, and had reviewed and/or edited this written report and agrees with it. Electronically signed by: Cesario Mckeon M.D. Narrative 01/17/2025 4:10 PM CDT HISTORY: Atrial fibrillation. Measurements in preparation for left atrial appendage occlusion device placement. COMPARISON: CT 05/31/2024 TECHNIQUE: Heart CT performed during administration of 119 mL of Optiray 350, intravenously per pulmonary vein protocol. Images were transferred to an independent workstation for additional 3D post-processing. FINDINGS: Left atrial appendage depth: 21 mm Left atrial appendage length: 65 mm Left atrial appendage ostium: Area 600 mm squared, Circumference 89 mm, Diameter 31 x 25 mm. Landing zone: Area 471 mm squared, Circumference 80 mm, Diameter 28 x 23 mm. Left atrial appendage shape: Chicken wing No evidence of left atrial appendage thrombus. Left atrial diameter (atrial diastole): 67 mm Interatrial septum measures 4 mm thick and is free of thrombus. Esophagus lies immediately posterior to the Right superior and inferior pulmonary vein. Other findings: Apical emphysematous changes and pleural parenchymal scarring. Bibasilar atelectasis. Three-vessel coronary artery atherosclerosis. Mildly enlarged heart size with enlarged left atrium. Pacer defibrillator leads terminate in the right atrium and right ventricle. There are calcifications of the aortic annulus and leaflets. Small hiatal hernia. Procedure Note Cesario Mckeon MD - 01/17/2025 HISTORY: Atrial fibrillation. Measurements in preparation for left atrial appendage occlusion device placement. COMPARISON: CT 05/31/2024 TECHNIQUE: Heart CT performed during administration of 119 mL of Optiray 350, intravenously per pulmonary vein protocol. Images were transferred to an independent workstation for additional 3D post-processing. FINDINGS: Left atrial appendage depth: 21 mm Left atrial appendage length: 65 mm Left atrial appendage ostium: Area 600 mm squared, Circumference 89 mm, Diameter 31 x 25 mm. Landing zone: Area 471 mm squared, Circumference 80 mm, Diameter 28 x 23 mm. Left atrial appendage shape: Chicken wing No evidence of left atrial appendage thrombus. Left atrial diameter (atrial diastole): 67 mm Interatrial septum measures 4 mm thick and is free of thrombus. Esophagus lies immediately posterior to the Right superior and inferior pulmonary vein. Other findings: Apical emphysematous changes and pleural parenchymal scarring. Bibasilar atelectasis. Three-vessel coronary artery atherosclerosis. Mildly enlarged heart size with enlarged left atrium. Pacer defibrillator leads terminate in the right atrium and right ventricle. There are calcifications of the aortic annulus and leaflets. Small hiatal hernia. IMPRESSION: 1. Left atrial appendage measurements for placement of occlusion device as described. 2. No evidence of left atrial appendage thrombus. Dictated by: Landon Mcnamara MD The radiology attending physician has personally reviewed this study, and had reviewed and/or edited this written report and agrees with it. Electronically signed by: Cesario Mckeon M.D. Nicholas Benites MD PhD IMG CT PROCEDURES Shailni l Result * (ABNORMAL) POCT creatinine (01/17/2025 1:07 PM CDT) Creatinine POC 1.6(H) 0.6 - 1.1 mg/dL Blood 01/17/2025 1:07 PM CDT 01/17/2025 1:07 PM CDT us Nicholas Benites MD PhD LAB POCT ORDERABLES - DEVICE Final Result Performing Organization Address City/[facility] Co de Phone Number [facility] [place] [address] * (ABNORMAL) eGFR (01/17/2025 12:38 PM CDT) eGFR 34(L) >=60 mL/min/1. 73 m2 Comment: Interpretive Data Reference Interval Normal >/= 90 mL/min/1.73m2 Mildly decreased* 60 - 89 mL/min/1.73m2 Mildly to moderately decreased 45 - 59 mL/min/1.73m2 Moderately to severely decreased 30 - 44 mL/min/1.73m2 Severely decreased 15 - 29 mL/min/1.73m2 Kidney Failure < 15 mL/min/1.73m2 *Relative to young adult level Estimated glomerular filtration rate is determined by the 2020 CKD-EPI equation recommended by the National Kidney Foundation (A Unifying Approach to GFR Estimation: Recommendations of the NKF-ASK Task Force on Reassessing the Inclusion of Race in Diagnosing Kidney Disease, JASN 2020). The CKD-EPI equation should not be used for patients with unstable renal function and has not been validated in children and those over 70. Current interpretive data was last reviewed 2021. Blood 01/17/2025 12:3 8 PM CDT 01/17/2025 1:16 PM CDT us Loretta Francois NATIONAL ACCOUNT EXECUTIVE LAB BLOOD ORDERABLES Shalini l Result Performing Organization Address City/[facility]/ZIP Co de Phone Number [facility] [place] [address] * Differential, auto (01/17/2025 12:38 PM CDT) Neutrophil abs 5.62 1.50 - 6.50 K/cumm Imm gran abs 0.04 0.00 - 0.10 K/cumm [facility] Lymphocyte abs 1.03 0.80 - 3.30 K/cumm [facility] Monocyte abs 0.60 0.20 - 0.80 K/cumm [facility] Eosinophil abs 0.16 0.00 - 0.50 K/cumm [facility] Basophil abs 0.10 0.00 - 0.10 K/cumm [facility] Neutrophil pct 74.6 % [facility] Comment: Interpretive Data Percent cell count reference ranges are not reported, since discordance with absolute values may lead to misinterpretation of CBC data. Current Interpretive Data was last revised on 2018. Imm gran pct 0.5 % [facility] Comment: Interpretive Data Percent cell count reference ranges are not reported, since discordance with absolute values may lead to misinterpretation of CBC data. Current Interpretive Data was last revised on 2018. Lymphocyte pct 13.6 % [facility] Comment: Interpretive Data Percent cell count reference ranges are not reported, since discordance with absolute values may lead to misinterpretation of CBC data. Current Interpretive Data was last revised on 2018. Monocyte pct 7.9 % [facility] Comment: Interpretive Data Percent cell count reference ranges are not reported, since discordance with absolute values may lead to misinterpretation of CBC data. Current Interpretive Data was last revised on 2018. Eosinophil pct 2.1 % [facility] Comment: Interpretive Data Percent cell count reference ranges are not reported, since discordance with absolute values may lead to misinterpretation of CBC data. Current Interpretive Data was last revised on 2018. Basophil pct 1.3 % [facility] Comment: Interpretive Data Percent cell count reference ranges are not reported, since discordance with absolute values may lead to misinterpretation of CBC data. Current Interpretive Data was last revised on 2018. Blood 01/17/2025 12:3 8 PM CDT 01/17/2025 1:16 PM CDT Nicholas Benites MD PhD LAB BLOOD ORDERABLES F inal Result Performing Organization Address [facility]/ZIP Co de Phone Number [facility] [place] [address] * (ABNORMAL) Urinalysis reflex to microscopic and culture Urine, clean voided (01/17/2025 12:38 PM CDT) Color, ur Yellow Yellow Clarity, ur Clear Clear [facility] Specific gravity, ur 1.025 1.003 - 1.030 [facility] pH, urine 6.5 [facility] Comment: Interpretive Data U rine pH is affected by diet, medications, systemic acid-base disturbances, and renal tubular function. pH may affect urinary stone formation. For example, urine pH below 6.0 may help reduce the tendency for calcium phosphate stones and pH greater than 6.0 may reduce the tendency for uric acid stone formation. Source: [facility] Current Interpretive Data was last revised on 2017 Protein, ur ql Trace Negative [facility] Glucose, ur ql Negative Negative [facility] Ketones, ur Negative Negative [facility] Bilirubin, ur Negative Negative [facility] Blood, ur Negative Negative [facility] Urobilinogen, ur 2.0(A) <2.0 mg/dL [facility] Nitrite, ur Negative Negative [facility] Leukocyte esterase, ur Negative Negative [facility] UA reflex comment Reflex conditions for microscopic UA and culture not met. [facility] Urine, clean voided 01/17/2025 12:38 PM CDT 01/17/2025 1:10 PM CDT Nicholas Benites MD PhD LAB MICROBIOLOGY - GEN ERAL ORDERABLES Final Result Performing Organization Address [facility]/ZIP Co de Phone Number [facility] Department [place] [address] * (ABNORMAL) CBC with auto differential (01/17/2025 12:38 PM CDT) WBC 7.55 3.80 - 9.90 K/cumm Hgb 10.3(L) 11.9 - 15.5 g/dL [facility] Hct 35.3(L) 35.6 - 45.5 % [facility] Plt 281 150 - 400 K/cumm [facility] MPV 12.6(H) 9.1 - 12.3 fL [facility] RBC 4.17 3.90 - 5.20 M/cumm [facility] MCV 84.7 81.3 - 96.4 fL [facility] MCH 24.7(L) 27.1 - 33.3 pg [facility] MCHC 29.2(L) 32.3 - 35.7 g/dL [facility] RDW CV 19.8(H) 11.1 - 14.9 % [facility] RDW SD 60.3(H) 35.7 - 48.1 fL [facility] NRBC abs 0.00 0.00 - 0.01 K/cumm [facility] Blood 01/17/2025 12:3 8 PM CDT 01/17/2025 1:16 PM CDT Nicholas Benites MD PhD LAB BLOOD ORDERABLES F inal Result [facility] [place] [address] * Type and screen (01/17/2025 12:38 PM CDT) Regulo, indirect Negative ABO Rh O Negative [facility] Blood 01/17/2025 12:3 8 PM CDT 01/17/2025 1:21 PM CDT Narrative [facility] - 01/17/2025 2:14 PM CDT Has the patient had Daratumumab or Isatuximab in the past 6 months?->Unknown Loretta Francois NATIONAL ACCOUNT EXECUTIVE LAB BLOOD BANK TEST ORDER KE Final Result Performing Organization Address City/[facility]/ZIP Co de Phone Number [facility] [place] [address] * (ABNORMAL) Comprehensive metabolic panel (01/17/2025 12:38 PM CDT) Sodium 142 135 - 145 mmol/L Potassium, pl 4.5 3.3 - 4.9 mmol/L [facility] Chloride 103 97 - 110 mmol/L [facility] CO2 28 22 - 32 mmol/L [facility] Anion gap 11 2 - 15 mmol/L [facility] BUN 26(H) 6 - 25 mg/dL [facility] Creatinine 1.54(H) 0.60 - 1.10 mg/dL [facility] Glucose 191 70 - 199 mg/dL [facility] Comment: Interpretive Data Fasting glucose >/= 126 mg/dl is diagnostic for diabetes. Fasting is defined as no caloric intake for at least 8 hours. Fasting glucose between 100 mg/dl to 125 mg/dl is diagnostic of prediabetes. In a patient with classic symptoms of hyperglycemia or hyperglycemic crisis, a random glucose >/= 200 mg/dl is diagnostic for diabetes. In the absence of unequivocal hyperglycemia, results should be confirmed by repeat testing. The classification and Diagnosis of Diabetes Diabetes Care 202; 46: S19-S40. Current interpretive data was last revised 2022. Calcium 9.0 8.5 - 10.3 mg/dL [facility] Bilirubin, total 0.3 0.1 - 1.2 mg/dL [facility] Protein, pl 7.0 6.5 - 8.5 g/dL [facility] Albumin 3.9 3.5 - 5.0 g/dL [facility] Alk phos 125 40 - 130 Units/L [facility] ALT 40 7 - 45 Units/L [facility] AST 73(H) 10 - 45 Units/L [facility] Blood 01/17/2025 12:3 8 PM CDT 01/17/2025 1:16 PM CDT us Loretta Francois NP LAB BLOOD ORDERABLES Shalini l Result [facility] Department [place] [address] * (ABNORMAL) POCT hemoglobin A1c (01/17/2025 11:45 AM CDT) Hgb A1C, POC 6.7(H) 4.0 - 5.6 % Est Average Gluc POC 146 mg/dL [facility] Comment: The ADA recommends reporting an estimated Average Glucose (eAG) with all Hemoglobin A1c results using the equation derived from a study of 507 normal and diabetic adults. Minority populations were underrepresented and children were not included. (Diabetes Care 31:4474-7537, 2008). The eAG is not equivalent to a fasting glucose. Blood 01/17/2025 11:4 5 AM CDT 01/17/2025 11:45 AM CDT us Nicholas Benites MD PhD POINT OF CARE TEST ORD ERABLES Final Result [facility] [place] [address] * Dexa Bone Density (01/11/2019 2:40 PM [...] by the International Society of Clinical Densitometry. [id number] Berlin Escobar MD IMG DXA PROCEDURES Final Resul t from Last 3 Months or Most Recently Relevant to Health Maintenance Insurance MEDICARE [facility] MEDICARE SUPPLEMENT [facility] MEDICARE [facility] ([address] [address] MEDICARE [facility] Address: [address] [address] [place] [address] [facility] MEDICARE SUPPLEMENT Member Subscriber Plan / Payer (Ef fective 2019-Present) Name:Walker Hilliard Relation to Subscriber:Self Name:Walker Hilliard Payer ID:[id number] Group ID:[id number] Type:COMMERCIAL Address: [address] Advance Directives For more information, please contact: [phone] * Full Code (Latest Code Status on File) Date Activated Date Inactivated Comments 02/01/2025 3:52 PM 02/02/2025 6:15 PM * Full Code Date Activated Date Inactivated Comments 01/19/2025 12:04 PM 01/19/2025 6:51 PM * LIMITED - No CPR Date Activated Date Inactivated Comments 03/13/2022 9:04 [...] Comments 03/02/2022 9:33 PM 03/02/2022 10:05 PM 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
--- OUTSIDE RECORDS SUMMARY | 2025-04-18 10:33 | XMS_ITS | Referral Summary ---
Author Organization [facility] Address [address] [place] [address] Care Team Providers Care Core Layer Machine Operator Name Role Phone Hema Castaneda MD Unavailable [phone] Colleen Bain MD Unavailable [phone] Rosette Espinoza MD Unavailable [phone] Lopez Pool MD Primary Care Provider [phone] Jacqueline Schaeffer RN Unavailable Unavailable Anat Hutchison Unavailable Unavailable Encounters Date Type Department Care Team Description 04/17/20 25 Results Follow-Up [facility] Gasteroenterolog y [address] [facility] 12th [place] [address] [place] [address] Natalia Pino NP [id number], Tumor Marker, Smooth muscle antibody, qualitative, Mitochondrial antibodies, qualitative, Additional followed-up results: 11 04/14/20 25 Documentation [facility] Gastroenterology [address] [facility] [place] 2nd [address] [place] [address] Zeny Grewal LPN GI ASSESSMENT 04/13/20 25 Orders Only [facility] Gastroenterology [address] [facility] Medicine 12th [place] [address] [place] [address] Alis Parsons, MIRI Cirrhosis of liver without ascites, unspecified hepatic cirrhosis type (HCC) (Primary Dx) 06/26/20 25 11:55 AM CDT Lab [facility] ([facility]) [address] [place] [address] 04/13/20 11:40 AM CDT Lab [facility] Advanced Medicine ([facility]) [address] [place] [address] Cirrhosis of liver without ascites, unspecified hepatic cirrhosis type (HCC); Chronic diastolic congestive heart failure (HCC) 04/13/20 11:00 AM CDT Office Visit [facility] Gastroenterology [address] [facility] 12th [place] [address] [place] [address] Natalia Pino NP Cirrhosis of liver without ascites, unspecified hepatic cirrhosis type (HCC) (Primary Dx) 04/12/20 25 Orders Only [facility] Gastroenterology [address] [facility] 2nd Floor [address] [place] [address] Zeny Grewal LPN 04/06/20 25 Orders Only [facility] Gastroenterology [address] [facility] 2nd Floor [address] [place] [address] Zeny Grewal LPN Iron deficiency anemia, unspecified iron deficiency anemia type (Primary Dx); Abnormal colonoscopy 04/05/20 25 Telephone [facility] Gastroenterology [facility] [facility] 12th [place] [address] [place] [address] Edel Rainey 04/03/20 Results Follow-Up [facility] Cardiology [address] [place] [address] 8th [place] [address] [place] [address] Nicholas Jensen MD PhD Cardiology Document Scan 03/28/20 25 Orders Only [facility] CARDIOLOGY Nicholas Jensen MD PhD 03/28/20 25 Telephone [facility] Cardiology [address] [place] [address] Medicine 8th [place] [address] [place] [address] Nicholas Jensen MD PhD 03/20/20 25 Orders Only [facility] Cardiology [address] [facility] Medical Office Building 3 [address] [place] [address] Rosette Espinoza MD 03/20/20 11:00 AM CDT Office Visit [facility] Cardiology [address] [place] [address] Medical Office Building 3 [address] [place] [address] Jesika Ewing NP Paroxysmal atrial fibrillation (HCC) (Primary Dx) 03/06/20 Results Follow-Up [facility] Cardiology [address] [place] [address] Advanced Medicine 8th [place] [address] [place] [phone] Nicholas Jensen MD PhD Transesophageal Echocardiogram (MARIO) W Possible Cardioversion 03/06/20 9:42 AM CDT Anesthesia Event [facility] [place] 1 [place] [phone] Kirstie Vuong MD 03/06/20 Documentation [facility] Cardiology [address] [place] [address] Advanced Medicine 8th [place] [address] [place] [phone] Adriel Bell MD 03/06/20 6:59 AM CDT - 03/06/20 11:59 PM CDT Hospital Encounter [facility] [place] 1 [place] [phone] Kirstie Vuong MD Atrial fibrillation, unspecified type (HCC) Discharge Disposition: Discharge to home or self care 03/03/20 25 Telephone [facility] Cardiology [address] [place] [address] Medical Office Building [address] [place] [phone] Rosette Espinoza MD 03/03/20 25 SHOP/CHAP Subsequent Outreach [facility] OP CASE MANAGEMENT 1 [place] [phone] Zeynep Pérez RN 03/02/20 25 Telephone [facility] Cardiology [address] [place] [address] Advanced Medicine 8th [place] [address] [place] [phone] Valery Zavala rescheduling LAAO visits 03/02/20 25 Telephone [facility] 1 [place] [address] Christal Stark, RN 03/01/20 25 SHOP/CHAP Subsequent Outreach [facility] OP CASE MANAGEMENT 1 [place] [address] Zeynep Pérez, MIRI 02/28/20 25 SHOP/CHAP Subsequent Outreach [facility] OP CASE MANAGEMENT 1 [place] [address] Olga Groves LCSW 02/24/20 25 SHOP/CHAP Subsequent Outreach [facility] OP CASE MANAGEMENT 1 [place] [address] Jenni Snider RN 02/23/20 25 SHOP/CHAP Subsequent Outreach [facility] OP CASE MANAGEMENT 1 [place] [address] Zeynep Pérez RN 02/21/20 25 Telephone [facility] Transplant Heart [address] [facility] [address] [place] [address] Jacqueline Schaeffer RN 02/21/20 25 SHOP/CHAP Subsequent Outreach [facility] OP CASE MANAGEMENT 1 [place] [address] Zeynep Pérez, MIRI 02/18/20 25 Anticoagulation Telephone Call [facility] Transplant Heart [address] [place] [address] [address] [place] [address] Jenni Hartley RN Atrial fibrillation, unspecified type (HCC) (Primary Dx); termite treater helper current use of anticoagulant therapy 02/18/20 25 SHOP/CHAP Subsequent Outreach [facility] OP CASE MANAGEMENT 1 [place] [address] Zeynep Pérez, MIRI 02/15/20 25 SHOP/CHAP Subsequent Outreach [facility] OP CASE MANAGEMENT 1 [place] [address] Zeynep Pérez, MIRI 02/14/20 25 Orders Only [facility] Scanning, Provider 02/14/20 25 Telephone [facility] Transplant Heart [address] [facility] [address] [phone] [place] [address] Alison Nye 02/10/20 25 SHOP/CHAP Subsequent Outreach [facility] OP CASE MANAGEMENT 1 [place] [phone] Zeynep Pérez, MIRI 02/07/20 25 Orders Only [facility] Gastroenterology [address] [facility] 2nd Floor [address] [place] [address] Zeny Grewal LPN 02/04/20 25 Results Follow-Up [facility] Gastroenterology [address] [facility] 12th [place] [address] [place] [phone] Amanda Alonso PA US Abdomen Complete W Liver Doppler (C) 02/04/20 25 SHOP/CHAP Initial Outreach [facility] OP CASE MANAGEMENT 1 [place] [address] Zeynep Pérez, MIRI 02/04/20 25 SHOP/CHAP Initial Eligibility Review [facility] OP CASE MANAGEMENT 1 [place] [address] Zeynep Pérez, MIRI 02/02/20 25 11:11 AM CDT - 02/03/20 25 2:09 PM CDT Hospital Encounter [facility] 1 [place] [address] Nicholas Jensen MD PhD Atrial fibrillation, unspecified type (HCC) Discharge Disposition: Discharge to home, home health skilled care 02/02/20 25 Telephone [facility] Cardiology [address] [facility] 8th [place] [address] [place] [address] Nicholas Jensen MD PhD post LAAO visits/MARIO 02/02/20 25 Results Follow-Up [facility] Cardiology [address] [facility] Medical Office Building 3 [address] [place] [address] Rosette Espinoza MD Liver Elastography w/o Imaging [facility] 02/02/20 9:34 AM CDT - 02/02/20 11:59 PM CDT Hospital Encounter [facility] Radiology 1 [place] [address] GAVE (gastric antral vascula r ectasia); Abnormal liver enzymes; Abnormal findings on esophagogastroduodenoscopy (EGD); Abnormal results of liver function studies Discharge Disposition: Discharge to home or self care 02/02/20 9:00 AM CDT Procedure visit [facility] Gastroenterology [address] [facility] 12th [place] [address] [place] [phone] Abnormal colonoscopy; GAVE (gastric antral vascular ectasia); Abnormal liver enzymes 02/02/20 1:55 PM CDT - 02/02/20 4:30 PM CDT Surgery [facility] [address] [address] Nicholas Jensen MD PhD PERC CHELI CLOSE W/IMPLANT [address]36[address] 02/02/20 2:22 PM CDT Anesthesia Event [address] [address] [place] Donald MD Dolnick, Karen Leigh, NP 01/31/20 Anticoagulation Telephone Call [facility] Transplant Heart [address] [facility] [address] [phone] [place] [address] Jacqueline Schaeffer RN Atrial fibrillation, unspecified type (HCC) (Primary Dx); long-term current use of anticoagulant therapy 01/24/20 Results Follow-Up [facility] Cardiology [address] [facility] 8th [place] [address] [place] [phone] Nicholas Jensen MD PhD CT Heart Morphology W Contrast 01/21/20 Results Follow-Up [facility] Gastroenterology [address] [facility] 2nd Floor [address] [place] [address] Zeny Grewal LPN EGD 01/21/20 Orders Only [facility] Gastroenterology [address] [facility] [place] 2nd [address] [place] [address] Zeny Grewal LPN Abnormal colonoscopy (Primary Dx); GAVE (gastric antral vascular ectasia); Abnormal liver enzymes; Abnormal findings on esophagogastroduodenoscopy (EGD); Abnormal results of liver function studies 01/20/20 1:06 PM CDT Anesthesia Event [facility] [address] [place] [phone] Abdi Thorpe MD Long, John Jacob, DO 01/20/20 11:05 AM CDT Lab [facility] Outpatient Lab [address] [place] [phone] History of Coumadin therapy; Diabetes mellitus due to underlying condition with diabetic chronic kidney disease, unspecified CKD stage, unspecified whether long distance billing operator insulin use (HCC) 01/20/20 Telephone [facility] Cardiology [address] [place] [address] 8th [place] [address] [place] [address] Rosette Espinoza MD 01/20/20 25 1:00 PM CDT - 01/20/20 25 2:00 PM CDT Surgery [facility] [address] [place] [phone] Humza Ledesma MD ESOPHAGOGASTRODUODENOSCOPY BIOPSY 01/20/20 11:27 AM CDT - 01/20/20 25 2:51 PM CDT Hospital Encounter [facility] [address] [place] [phone] Humza Ledesma MD Iron deficiency anemia, unspecified iron deficiency anemia type; Gastrointestinal hemorrhage, unspecified gastrointestinal hemorrhage type Discharge Disposition: Discharge to home or self care 01/19/20 25 Orders Only [facility] CARDIOLOGY Nicholas Jensen MD PhD 01/18/20 25 Telephone [facility] Cardiology [address] [place] [address] 8th [place] [address] [place] [address] Rosette Espinoza MD 01/18/20 25 10:00 AM CDT Pre-Admission Testing [facility] for Preoperative Assessment and Planning [facility] Advanced [facility] ([facility]) [address] [place] [address] Preop testing (Primary Dx); Atrial fibrillation, unspecified type (HCC) 01/18/20 25 12:40 PM CDT - 01/18/20 11:59 PM CDT Hospital Encounter [facility] [place] [facility] ([facility]) [address] [place] [address] Nicholas Jensen MD PhD Atrial fibrillation, unspecified type (HCC) Discharge Disposition: Discharge to home or self care from Last 3 Months Allergies No known active allergies Medications calcium [...] diabetic (TRUEplus Pen Needle) 32 gauge x 5/32 needle Use with insulin injections twice daily 200 each 3 06/01/20 23 Active glucagon (Gvoke HypoPen 2-Pack) 1 mg/0.2 mL auto-injector Use as needed for treatment of hypoglycemia 0.4 mL 3 07/29/20 23 Active Trelegy Ellipta 200-62.5-25 mcg inhaler Inhale 1 puff every morning 09/09/20 23 Active levothyroxine (SYNTHROID) 137 mcg tablet Take 1 tablet (137 mcg total) by mouth lamination assembler before breakfast 08/20/[address] [...] mg total) by mouth daily 30 tablet 11 02/04/20 25 026 Active clopidogreL (PLAVIX) 75 mg tabletIndications: coronary artery disease Take 1 tablet (75 mg total) by mouth daily 30 tablet 11 02/04/20 25 026 Active amiodarone (PACERONE) 200 mg tabletIndications: Prevention of Recurrent Atrial Fibrillation Take 1 tablet (200 mg total) by mouth every morning 30 tablet 4 02/04/20 25 Active docusate sodium (COLACE) 50 [...] instructions on package. For any questions call [phone]. 4000 mL 04/12/20 25 Active FUROSEMIDE ORAL Take 60 mg by mouth daily 025 Discontin ued(Reord er) Active Problems Problem Noted Date Diagnosed Date Cirrhosis of liver without ascites 04/13/2025 Assessment & Plan (04/13/2025 12:54 PM CDT): Walker Kulkarni is an 79 year old female with [...] what she can do for physical exercise. [place] on eating healthy diet. Avoid sweetened beverages. [...] aortic aneurysm (AAA) 01/13 Gastrointestinal hemorrhage 01/13/2025 termite treater helper current use of amiodarone 07/22/2024 Acquired hypothyroidism 12/08/2022 Assessment & Plan (10/01/2023 7:53 PM LEAD COOK): Symptomatically euthyroid but recent TSH elevated. Has [...] prescribed Assessment & Plan (12/09/2022 9:54 AM LEAD COOK): -Labs dated 10/03/22: FT4 was 0.49, TSH [...] 12/19/2019 Assessment & Plan (10/01/2023 7:56 PM LEAD COOK): Glucoses high but needs reliable test strips. [...] podiatry Assessment & Plan (12/09/2022 9:54 AM LEAD COOK): -Currently prescribed insulin -metformin has been discontinued [...] podiatry Assessment & Plan (11/15/2021 11:27 AM LEAD COOK): -Currently prescribed insulin and metformin -A1C recently [...] 12/19/2019 Assessment & Plan (10/01/2023 7:54 PM LEAD COOK): Continue statin, optimize glycemic control. Assessment & [...] effects Assessment & Plan (12/08/2022 8:55 AM LEAD COOK): -Lipid panel on 03/03/22: TC 108, trig [...] effects Assessment & Plan (11/15/2021 11:23 AM LEAD COOK): -Will continue statin as it is being tolerated without side effects Stage 3b chronic kidney disease 03/20/2019 Assessment & Plan (10/01/2023 7:55 PM LEAD COOK): Need optimal glycemic control, minimize risk of hypoglycemia. Assessment & Plan (06/15/2023 3:56 PM CDT): -CKD increases risk of hypoglycemia -Will closely monitor glucose pattern in ensure margin of safety Assessment & Plan (03/09/2023 8:23 AM CDT): -CKD increases risk of hypoglycemia -Will closely monitor glucose pattern in ensure margin of safety Assessment & Plan (12/08/2022 8:56 AM LEAD COOK): -CKD increases risk of hypoglycemia -Will closely [...] monitor. Assessment & Plan (11/11/2021 12:00 PM LEAD COOK): -CKD increases risk of hypoglycemia -Will closely [...] time. Assessment & Plan (12/09/2022 9:54 AM LEAD COOK): -BP was 128/85 -Will continue same antihypertensive [...] MARI Assessment & Plan (11/11/2021 11:59 AM LEAD COOK): -Will continue same antihypertensive medications at this time. Assessment & Plan (04/08/2019 7:29 AM CDT): Recent changes in medications. Defer to her Cardiology team Breast cancer ([facility]) 07/13/2018 Overview (07/13/2018): L radical mastectomy with chemo and XRT x [phone]. Assessment & Plan (03/17/2022 10:47 AM CDT): [...] AM CDT): C/w home anastrozole Stroke (cerebrum) ([facility]) 07/13/2018 Overview (07/13/2018): R body weak and [...] (goal 2-3) - cont sotolol, renally dosed termite treater helper current use of anticoagulant therapy 0 03/24/2018 [...] dysfunction 02/22/2010 Chronic diastolic congestive heart failure ([facility]) 02/22/2010 Assessment & Plan (03/17/2022 10:47 AM [...] INR goal 2-3 Sinus bradycardia 08/28/2017 01/13/2025 Immunizations Immunization Administration Dates Next Due Influenza, [...] = 0.6 oz pur e alcohol) minimal [facility] Utilities Answer Date Recorded In the past 12 months has th e electric, gas, oil, or water [employer] threatened to shut off services in your [...] often do you attend chur ch or jewish services? Never 02/03/2025 Do you belong to [...] in a usp (including now)? No 03/14/2022 Housing Stability Vital Sign Answer Sebas e Recorded In the last 12 months, was t here a time when you were not able to pay the mortgage or rent on time? No 02/03/2025 In the past 12 months, how m any times have you moved where you were living? 0 02/03/2025 At any time in the past 12 m [facility], were you homeless or living in a usp (including now)? No 02/03/2025 Personal Safety Answer Date Recorded Have you ever been in or are you currently in a harmful physical or emotional relationship or is someone making you feel afraid or unsafe? 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 Not on file [...] Description 05/03/2025 10:00 AM CDT Hospital Encounter [facility] Endoscopy [address] [address] OATES, JADEN [address] Sea Ignacio MD [address] [place] [address] 05/03/2025 10:00 AM CDT - 05/03/2025 10:45 AM CDT Surgery [facility] Endoscopy [address] [address]ados [address] Sea Ignacio MD [address] [place] [address] COLONOSCOPY Scheduled Procedures Name Priority Associated Diagnoses Date/Ti me COLONOSCOPY Iron deficiency anemia, unspecified iron deficiency anemia type Abnormal colonoscopy 05/03/2025 10:00 AM CDT Medical Devices Implanted Type Area Broke Worker Device Identifier Shelf Expiration Date Model / Serial / Lot [employer] Occluder Cvasc Cheli Flexible Braided Amplatzer Amulet 28mm Nitinol [id number] 28 - [id number] - [id number] Implanted:Qt y: 1 on 02/01/2025 by Nicholas Jensen MD PhD at [facility] Left Atrial Appendage Occluder Left: Atrial Appendage [employer] 2029 [id number] 10-028 / [id number] / [id number] Pacemaker Pacemaker Right: Chest [employer] System Closure Repair Femoral Artery Suture Mediated Perclose Prostyle 00905-56 - [id number] - [id number] Implanted:Qt y: 1 on 02/01/2025 by Nicholas Jensen MD PhD at [facility] Vascular Closure Device Left: Femoral Vein [employer] 11/18/2026 [id number] / [id number] / [id number] [employer] System Closure Repair Femoral Artery Suture Mediated Perclose Prostyle 15123-03 - [id number] - [id number] Implanted:Qt y: 1 on 02/01/2025 by Nicholas Jensen MD PhD at [facility] Vascular Closure Device Right: Femoral Vein [employer] 04/17/2026 [id number] / [id number] / [id number] Procedures Procedure Name Priority Date/Time Associated Diagnosis [...] without ascites, unspecified hepatic cirrhosis type (HCC) [id number], TUMOR MARKER Routine 04/13/2025 11:37 AM CDT [...] PM CDT PERC CHELI CLOSURE W/IMPLANT (WATCHMAN) [id number] Routine 02/01/2025 4:13 PM CDT Atrial fibrillation, unspecified type (HCC) POCT ACTIVATED CLOTTING TIME, LOW RANGE Routine 02/01/2025 3:44 PM CDT POCT GLUCOSE DEVICE Routine 02/01/2025 3:32 PM CDT POCT ACTIVATED CLOTTING TIME, LOW RANGE Routine 02/01/2025 3:28 PM CDT SC AN PROCEDURE PLACEHOLDER Routine 01/17 3:03 PM CDT SC AN PROCEDURE PLACEHOLDER Routine 01/17 3:02 PM CDT SC AN ELECTIVE ENDOTRACHEAL AIRWAY Routine 02/01/2025 3:02 [...] kidney disease, unspecified CKD stage, unspecified whether residential insulin use (HCC) CARDIOLOGY DOCUMENT SCAN 025 [...] Routine (OP Routine) 01/11/2019 2:40 PM CDT termite treater helper current use of inhaled steroid Chronic obstructive [...] CDT 04/13/2025 12:19 PM CDT Natalia Pino ORTHOPEDIC BRACE MAKER LAB BLOOD ORDERABLES Fin al [facility] [place] [address] * (ABNORMAL) eGFR (04/13/2025 11:37 AM CDT) [...] LAB BLOOD ORDERABLES Fin al Result [facility] [place] [address] * Smooth muscle antibody, qualitative (04/13/2025 11:37 AM CDT) Anti-smooth muscle Negative Negative Blood 04/13/2025 11:3 7 AM CDT 04/13/2025 12:19 PM CDT Natalia Pino NP LAB BLOOD ORDERABLES [facility] al Result ALONA [facility] Department [place] [address] * (ABNORMAL) Pro B-type natriuretic peptide (04/13/2025 [...] Eur Heart J. 2006:27:330-337. 2. Jorge Luis GIVENS, Deisi DAVIS. J. AM Júnior Cardiol: Cardiovasc Imag. 2009;2: 216- 225. Interpretive Data Last Revised Date: 2018. Blood 04/13/2025 11:3 7 AM CDT 04/13/2025 12:19 PM CDT Chanel Ponce ORTHOPEDIC BRACE MAKER LAB BLOOD ORDERABLES Final Result Performing Organization Address City/State/[facility] Co ca Phone Number ALONA HOLM [facility] Department [place] [address] * (ABNORMAL) Pro B-type natriuretic peptide (04/13/2025 [...] CDT 04/13/2025 12:19 PM CDT Chanel Ponce ORTHOPEDIC BRACE MAKER LAB BLOOD ORDERABLES Final Result Performing Organization Address City/State/[facility] de Phone Number [facility] Department [place] [address] * (ABNORMAL) Thyroid Function [place] (04/13/2025 11:37 AM CDT) TSH 5.23(H) 0.30 - 4.20 mcIUnit/mL Blood 04/13/2025 11:3 7 AM CDT 04/13/2025 12:19 PM CDT Lopez Pool MD LAB BLOOD ORDERABLES Final Re sult Performing Organization Address [facility] de Phone Number [facility] Department [place] [address] * Mitochondrial antibodies, qualitative (04/13/2025 11:37 AM CDT) Pathologist [facility] Anti-mitochond rial Negative Negative Blood 04/13/2025 11:3 7 AM CDT 04/13/2025 12:19 PM CDT Natalia Pino NP LAB BLOOD ORDERABLES Fin al Result Performing Organization Address [facility] de Phone Number [facility] Department [place] [address] * Hepatitis C antibody Blood (04/13/2025 11:37 AM CDT) Hep C Ab Nonreactive Nonreactive Comment:Antibodies to HCV no t detected. Does NOT exclude the possibility of recent exposure to HCV. Current interpretive data was last revised on 22 Blood 04/13/2025 11:3 7 AM CDT 04/13/2025 12:19 PM CDT Natalia Pino NP LAB MICROBIOLOGY - GENER AL ORDERABLES Final Result Performing Organization Address [facility] Co de Phone Number [facility] [place] [address] * Hepatitis A antibody, IgM Blood (04/13/2025 11:37 AM CDT) [facility] Hep A IgM Nonreactive Nonreactive Blood 04/13/2025 11:3 7 AM CDT 04/13/2025 12:19 PM CDT Natalia Pino NP LAB MICROBIOLOGY - GENER AL ORDERABLES Final Result Performing Organization Address [facility] [place] [address] * Hepatitis A antibody, total Blood (04/13/2025 11:37 AM CDT) [facility] Hep A total Nonreactive Nonreactive Blood 04/13/2025 11:3 7 AM CDT 04/13/2025 12:19 PM CDT Natalia Pino NP LAB MICROBIOLOGY - GENER AL ORDERABLES Final Result Performing Organization Address [facility]/[place] [facility] de Phone Number [facility] [place] [address] * [id number], Tumor Marker (04/13/2025 11:37 AM CDT) [facility] alpha Fetoprotein 5.9 <=8.3 ng/mL Comment: Interpretive [...] >1 year 0.0 8.3 ng/ml References Kecia Teixeira. et al. J. Ped Surg 1978;13:155-156 Aj Adams al. Clin Chem Lab Med 2018;57:783-797 Chang Mendez et al. Clin Chem 2014;[id number]. Current interpretive data was last revised 2022. Blood 04/13/2025 11:3 7 AM CDT 04/13/2025 12:19 PM CDT Natalia Pino NP LAB BLOOD ORDERABLES Fin al Result Performing Organization Address [facility] de Phone Number [facility] [place] [address] * Hepatitis B core antibody, total Blood (04/13/2025 11:37 AM CDT) Hep B core IgG/IgM Nonreactive Nonreactive Blood 04/13/2025 11:3 7 AM CDT 04/13/2025 12:19 PM CDT Natalia Pino NP LAB MICROBIOLOGY - GENER AL ORDERABLES Final Result Performing Organization Address [facility] de Phone Number [facility] [place] [address] * Hepatitis B surface antibody (immune status) [...] AL ORDERABLES Final Result Performing Organization Address [facility] de Phone Number [facility] [place] [address] * Hepatitis B Surface Antigen Blood (04/13/2025 11:37 AM CDT) HepBsAg Nonreactive Nonreactive Blood 04/13/2025 11:3 7 AM CDT 04/13/2025 12:19 PM CDT Natalia Pino NP LAB MICROBIOLOGY - GENER AL ORDERABLES Final Result Performing Organization Address [facility] [place] [address] * Protime-INR (04/13/2025 11:37 AM CDT) Pathologist [facility] PT 11.1 9.7 - 13.0 sec INR 1.03 0.90 - 1.20 [facility] Comment: Interpretive data Oral anticoagulant therapeutic [...] ORDERABLES Fin al Result Performing Organization Address [facility] [place] [address] * T4, free (04/13/2025 11:37 AM CDT) Pathologist [facility] Free T4 1.42 0.90 - 1.70 ng/dL Blood 04/13/2025 11:3 7 AM CDT 04/13/2025 12:19 PM CDT Narrative AL[facility] - 04/13/2025 1:22 PM CDT This test was reflexed from a TSH result. us Lopez Pool MD LAB BLOOD ORDERABLES Final Re sult Performing Organization Address City/[facility]/ZIP Co de Phone Number [facility] Department [place] [address] * (ABNORMAL) Gamma GT (04/13/2025 11:37 AM CDT) Pathologist [facility] GGT 114(H) 5 - 35 Units/L Blood 04/13/2025 11:3 7 AM CDT 04/13/2025 12:19 PM CDT Natalia Pino NP LAB BLOOD ORDERABLES Fin al Result Performing Organization Address [facility] de Phone Number [facility] Department [place] [address] * (ABNORMAL) Comprehensive metabolic panel (04/13/2025 11:37 AM CDT) [facility] Sodium 144 135 - 145 mmol/L Potassium, pl 4.2 3.3 - 4.9 mmol/L [facility] Chloride 106 97 - 110 mmol/L [facility] CO2 28 22 - 32 mmol/L [facility] Anion gap 10 2 - 15 mmol/L [facility] BUN 27(H) 6 - 25 mg/dL [facility] Creatinine 1.44(H) 0.60 - 1.10 mg/dL [facility] Glucose 120 70 - 199 mg/dL [facility] Comment: Interpretive Data Fasting glucose [...] 2022. Calcium 9.6 8.5 - 10.3 mg/dL [facility] Bilirubin, total 0.2 0.1 - 1.2 mg/dL [facility] Protein, pl 7.2 6.5 - 8.5 g/dL [facility] Albumin 3.7 3.5 - 5.0 g/dL [facility] Alk phos 142(H) 40 - 130 Units/L [facility] ALT 26 7 - 45 Units/L [facility] AST 51(H) 10 - 45 Units/L [facility] Blood 04/13/2025 11:3 7 AM CDT 04/13/2025 12:19 PM CDT Natalia Pino NP LAB BLOOD ORDERABLES Fin al Result Performing Organization Address [facility]/ZIP Co de Phone Number [facility] Department [place] [address] * (ABNORMAL) CBC with auto differential (04/04/2025 [...] Re sult TXP NO LAB FOUND * (ABNORMAL) Basic metabolic [...] NO LAB FOUND SCRIBED eGFR in NonAfrican [place] 31 >89 TXP NO LAB FOUND Blood 04/04/2025 12:5 3 PM CDT us Lopez Pool MD LAB BLOOD ORDERABLES Final Re sult TXP NO LAB FOUND * Cardiology Document Scan (03/28/2025 7:40 AM CDT) Anatomical Region Laterality Modality Other us Nicholas Jensen MD PhD CV CARDIAC SERVICES SC OCEDURES Final Result * DEVICE CHECK - REMOTE (03/20/2025 3:31 AM CDT) Anatomical Region Laterality Modality Other 03/20/2025 3:31 AM CDT Narrative 04/10/2025 10:43 AM CDT Interpretation Summary: Battery and Leads (BL) Normal parameters noted on battery and lead(s) --- 1 years remaining (this is an estimate based on prior usage) Presenting Rhythm (SC) Atrial Sensing () --- Atrial tach at 160 bpm Ventricular Pacing (PATCHING MACHINE OPERATOR) --- rate 60 Arrhythmic events (AE) No [...] estimate based on prior usage) Presenting Rhythm (SC) Atrial Sensing () --- Atrial tach at 160 bpm Ventricular Pacing (PATCHING MACHINE OPERATOR) --- rate 60 Arrhythmic events (AE) No new arrhythmic events in monitoring period Anticoagulation (AC) Patient is not on anticoagulant therapy Patient is status-post left atrial appendage occlusion device Transmission Information (TI) Device Summary Report us Rosette Espinoza MD CV CARDIAC SERVICES PROCEDURES Final Result * TRANSESOPHAGEAL ECHO (MARIO) W DOPPLER/CF W CARDIOVERSION W CONTRAST (03/06/2025 10:22 AM CDT) Anatomical Region Laterality Modality Echocardiography 03/06/2025 9:23 AM CDT Narrative 03/06/2025 2:[address] [facility] [place] [place] [address] Transesophageal Echocardiographic Report Patient Name: WALKER KULKARNI L : 1945 (79y 9m) Gender: F Study Date: 03/06/2025 09:23:36 AM Ht(Inch): Wt(Lb): BSA: Wire Galvanizer: Location: [facility] Order Provider: NICHOLAS JENSEN BMI: Ref Provider: NICHOLAS JENSEN - PROCEDURES: Transesophageal Echo Report: Echocardiography, transesophageal, [...] Procedure Note Adriel Bean MD - 03/06/[address] [facility] [place] [place] [address] Transesophageal Echocardiographic Report Patient Name: WALKER KULKARNI L : 1945 (79y 9m) Gender: F Study Date: 03/06/2025 09:23:36 AM Ht(Inch): Wt(Lb): BSA: Wire Galvanizer: Location: [facility] Order Provider: NICHOLAS JENSEN BMI: Ref Provider: NICHOLAS JENSEN - PROCEDURES: Transesophageal Echo Report: Echocardiography, transesophageal, real-timewith image documentation (2D) including probe placement, image acquisition,interpretation, and report; Doppler echocardiography, limited pulsed wave and/or continuouswave with spectral display; Doppler echocardiography color flow velocity mapping; 3D echocardiography, rendering with interpretation and reporting, notrequiring post-processing on an independent workstation. Performing Physician: Performed by Adriel Tadeo & Eleazar Doan.MARIO probe placed by Eleazar Doan. Consent: Informed [...] Adriel Tadeo MD 03/06/2025 2:56:34 PM CDT Nicholas Jensen MD PhD CV ECHO PROCEDURES Fin al [...] Glucose, POC 139 70 - 199 mg/dL [facility] Blood 03/06/2025 8:44 AM CDT 03/06/2025 8:44 AM CDT Juan David Vargas FOUNDRY HAND POCT ORDERABLES - DEV ICE Final Result Performing Organization Address City/[facility]/ZIP Co de Phone Number ALONA FRAGA [facility]is [facility] [place] [address] * SCAN - LABS (02/13/2025) us Provider Scanning Final Result * (ABNORMAL) POCT glucose (02/02/2025 11:39 AM CDT) Glucose, POC 207(H) 70 - 199 mg/dL Blood 02/02/2025 11:3 9 AM CDT 02/02/2025 11:39 AM CDT us Nicholas Jensen MD PhD LAB POCT ORDERABLES - DEVICE Final Result Performing Organization Address [facility] Co de Phone Number ALONA FRAGA [facility] [place] [address] * XR Chest PA Lateral 2 Views [...] by: Brooklyn Fine M.D. us Barbara Figueroa [employer]ACE [employer] IMG XR PROCEDURES Final Res ult * POCT glucose (02/02/2025 7:45 AM CDT) Glucose, POC 171 70 - 199 mg/dL Blood 02/02/2025 7:45 AM CDT 02/02/2025 7:45 AM CDT us Nicholas Jensen MD PhD LAB POCT ORDERABLES - DEVICE Final Result [facility] Department [place] [address] * (ABNORMAL) eGFR (02/02/2025 5:20 AM CDT) [...] of Race in Diagnosing Kidney Disease, JASN 202). The CKD-EPI equation should not be used for patients with unstable renal function and has not been validated in children and those over 70. Current interpretive data was last reviewed 2021. Blood 02/02/2025 5:20 AM CDT 02/02/2025 5:37 AM CDT us Nicholas Jensen MD PhD LAB BLOOD ORDERABLES F inal Result [facility] Department [place] [address] * Differential, auto (02/02/2025 5:20 AM CDT) Neutrophil abs 4.98 1.50 - 6.50 K/cumm Imm gran abs 0.03 0.00 - 0.10 K/cumm [facility] Lymphocyte abs 0.83 0.80 - 3.30 K/cumm [facility] Monocyte abs 0.65 0.20 - 0.80 K/cumm [facility] Eosinophil abs 0.17 0.00 - 0.50 K/cumm [facility] Basophil abs 0.09 0.00 - 0.10 K/cumm [facility] Neutrophil pct 73.9 % [facility] Comment: Interpretive Data Percent cell count reference ranges are not reported, since discordance with absolute values may lead to misinterpretation of CBC data. Current Interpretive Data was last revised on 2018. Imm gran pct 0.4 % [facility] Comment: Interpretive Data Percent cell count reference ranges are not reported, since discordance with absolute values may lead to misinterpretation of CBC data. Current Interpretive Data was last revised on 2018. Lymphocyte pct 12.3 % [facility] Comment: Interpretive Data Percent cell count reference ranges are not reported, since discordance with absolute values may lead to misinterpretation of CBC data. Current Interpretive Data was last revised on 2018. Monocyte pct 9.6 % [facility] Comment: Interpretive Data Percent cell count reference ranges are not reported, since discordance with absolute values may lead to misinterpretation of CBC data. Current Interpretive Data was last revised on 2018. Eosinophil pct 2.5 % [facility] Comment: Interpretive Data Percent cell count reference ranges are not reported, since discordance with absolute values may lead to misinterpretation of CBC data. Current Interpretive Data was last revised on 2018. Basophil pct 1.3 % [facility] Comment: Interpretive Data Percent cell count reference ranges are not reported, since discordance with absolute values may lead to misinterpretation of CBC data. Current Interpretive Data was last revised on 2018. Blood 02/02/2025 5:20 AM CDT 02/02/2025 5:37 AM CDT us Nicholas Jensen MD PhD LAB BLOOD ORDERABLES F inal Result [facility] Department [place] [address] * (ABNORMAL) CBC with auto differential (02/02/2025 5:20 AM CDT) WBC 6.75 3.80 - 9.90 K/cumm Hgb 9.5(L) 11.9 - 15.5 g/dL [facility] Hct 31.5(L) 35.6 - 45.5 % [facility] Plt 198 150 - 400 K/cumm [facility] MPV 11.6 9.1 - 12.3 fL [facility] RBC 3.59(L) 3.90 - 5.20 M/cumm [facility] MCV 87.7 81.3 - 96.4 fL [facility] MCH 26.5(L) 27.1 - 33.3 pg [facility] MCHC 30.2(L) 32.3 - 35.7 g/dL [facility] RDW CV 19.8(H) 11.1 - 14.9 % [facility] RDW SD 63.9(H) 35.7 - 48.1 fL [facility] NRBC abs 0.00 0.00 - 0.01 K/cumm [facility] Blood 02/02/2025 5:20 AM CDT 02/02/2025 5:37 AM CDT us Nicholas Jensen MD PhD LAB BLOOD ORDERABLES F inal Result [facility] Department [place] [address] * (ABNORMAL) Lipid panel (02/02/2025 5:20 AM [...] revised on 2018. Triglycerides 241(H) <=149 mg/dL [facility] Comment: Interpretive Data Ages < [...] revised on 2018. HDL 35(L) >=40 mg/dL [facility] Comment: Interpretive Data Ages < [...] on 2018. LDL, calculated 140(H) <=129 mg/dL [facility] Comment: Interpretive Data Ages < or [...] revised on 2024. Non-HDL Cholesterol 184 mg/dL [facility] Comment: Interpretive Data Ages < or [...] last revised on 2018. Chol/HDL ratio 6 [facility] Blood 02/02/2025 5:20 AM CDT 02/02/2025 5:37 AM CDT Narrative [facility] - 02/02/2025 8:51 AM CDT reflex Nicholas Jensen MD PhD LAB BLOOD ORDERABLES F inal Result Performing Organization Address City/[facility]/ZIP Co de Phone Number [facility] Department [place] [address] * (ABNORMAL) Basic metabolic panel (02/02/2025 5:20 AM CDT) [facility] Sodium 142 135 - 145 mmol/L Potassium, pl 4.0 3.3 - 4.9 mmol/L [facility] Chloride 101 97 - 110 mmol/L [facility] CO2 31 22 - 32 mmol/L [facility] Anion gap 10 2 - 15 mmol/L [facility] BUN 28(H) 6 - 25 mg/dL [facility] Creatinine 1.52(H) 0.60 - 1.10 mg/dL [facility] Glucose 167 70 - 199 mg/dL [facility] Comment: Interpretive Data Fasting glucose [...] 2022. Calcium 8.6 8.5 - 10.3 mg/dL [facility] Blood 02/02/2025 5:20 AM CDT 02/02/2025 5:37 AM CDT us Nicholas Jensen MD PhD LAB BLOOD ORDERABLES F inal Result Performing Organization Address [facility] Co de Phone Number [facility] Department [place] [address] * (ABNORMAL) Differential, auto (02/01/2025 11:31 PM CDT) Pathologist [facility] Neutrophil abs 6.55(H) 1.50 - 6.50 K/cumm Imm gran abs 0.04 0.00 - 0.10 K/cumm [facility] Lymphocyte abs 0.79(L) 0.80 - 3.30 K/cumm [facility] Monocyte abs 0.75 0.20 - 0.80 K/cumm [facility] Eosinophil abs 0.10 0.00 - 0.50 K/cumm [facility] Basophil abs 0.10 0.00 - 0.10 K/cumm [facility] Neutrophil pct 78.6 % [facility] Comment: Interpretive Data Percent cell count reference ranges are not reported, since discordance with absolute values may lead to misinterpretation of CBC data. Current Interpretive Data was last revised on 2018. Imm gran pct 0.5 % [facility] Comment: Interpretive Data Percent cell count reference ranges are not reported, since discordance with absolute values may lead to misinterpretation of CBC data. Current Interpretive Data was last revised on 2018. Lymphocyte pct 9.5 % [facility] Comment: Interpretive Data Percent cell count reference ranges are not reported, since discordance with absolute values may lead to misinterpretation of CBC data. Current Interpretive Data was last revised on 2018. Monocyte pct 9.0 % [facility] Comment: Interpretive Data Percent cell count reference ranges are not reported, since discordance with absolute values may lead to misinterpretation of CBC data. Current Interpretive Data was last revised on 2018. Eosinophil pct 1.2 % [facility] Comment: Interpretive Data Percent cell count reference ranges are not reported, since discordance with absolute values may lead to misinterpretation of CBC data. Current Interpretive Data was last revised on 2018. Basophil pct 1.2 % [facility] Comment: Interpretive Data Percent cell count reference ranges are not reported, since discordance with absolute values may lead to misinterpretation of CBC data. Current Interpretive Data was last revised on 2018. Blood 02/01/2025 11:3 1 PM CDT 02/02/2025 12:04 AM CDT Nicholas Jensen MD PhD LAB BLOOD ORDERABLES F inal Result [facility] [place] [address] * (ABNORMAL) Urinalysis reflex to microscopic and culture Urine (02/01/2025 11:31 PM CDT) Color, ur Nikki Yellow Clarity, ur Cloudy(A) Clear [facility] Specific gravity, ur 1.035(H) 1.003 - 1.030 [facility] pH, urine 6.0 [facility] Comment: Interpretive Data U rine pH is affected by diet, medications, systemic acid-base disturbances, and renal tubular function. pH may affect urinary stone formation. For example, urine pH below 6.0 may help reduce the tendency for calcium phosphate stones and pH greater than 6.0 may reduce the tendency for uric acid stone formation. Source: [facility] Current Interpretive Data was last revised on 2017 Protein, ur ql 1+(A) Negative [facility] Glucose, ur ql Negative Negative [facility] Ketones, ur Negative Negative [facility] Bilirubin, ur Negative Negative [facility] Blood, ur 3+(A) Negative [facility] Urobilinogen, ur <2.0 <2.0 mg/dL [facility] Nitrite, ur Negative Negative [facility] Leukocyte esterase, ur Negative Negative [facility] UA reflex comment Reflex to microscopic UA will be performed. [facility] Urine 02/01/2025 11:3 1 PM CDT 02/01/2025 11:56 PM CDT Nicholas Jensen MD PhD LAB MICROBIOLOGY - GEN ERAL ORDERABLES Final Result [facility] [place] [address] * (ABNORMAL) CBC with auto differential (02/01/2025 11:31 PM CDT) WBC 8.33 3.80 - 9.90 K/cumm Hgb 10.0(L) 11.9 - 15.5 g/dL [facility] Hct 33.3(L) 35.6 - 45.5 % [facility] Plt 221 150 - 400 K/cumm [facility] MPV 11.8 9.1 - 12.3 fL [facility] RBC 3.83(L) 3.90 - 5.20 M/cumm [facility] MCV 86.9 81.3 - 96.4 fL [facility] MCH 26.1(L) 27.1 - 33.3 pg [facility] MCHC 30.0(L) 32.3 - 35.7 g/dL [facility] RDW CV 19.9(H) 11.1 - 14.9 % [facility] RDW SD 63.0(H) 35.7 - 48.1 fL [facility] NRBC abs 0.00 0.00 - 0.01 K/cumm [facility] Blood 02/01/2025 11:3 1 PM CDT 02/02/2025 12:04 AM CDT Nicholas Jensen MD PhD LAB BLOOD ORDERABLES F inal Result [facility] Department [place] [address] * (ABNORMAL) Urinalysis, microscopic only (02/01/2025 11:31 PM CDT) WBC, ur 6-10(A) 0 - 5 /HPF RBC, ur 11-20(A) 0 - 2 /HPF [facility] Epithelial cells, squamous, ur 1-5 0 - 5 /HPF [facility] Bacteria, ur 2+(A) [facility] Culture Reflex Comment Reflex conditions for urine culture (WBC >10) not met. [facility] Urine 02/01/2025 11:3 1 PM CDT 02/01/2025 11:56 PM CDT Nicholas Jensen MD PhD LAB URINE ORDERABLES F inal Result Performing Organization Address City/[facility]/ZIP Co de Phone Number [facility] Department [place] [address] * (ABNORMAL) POCT glucose (02/01/2025 10:23 PM CDT) Glucose, POC 257(H) 70 - 199 mg/dL Blood 02/01/2025 10:2 3 PM CDT 02/01/2025 10:23 PM CDT Nicholas Jensen MD PhD LAB POCT ORDERABLES - DEVICE Final Result Performing Organization Address [facility] Co de Phone Number [facility] Department [place] [address] * (ABNORMAL) eGFR (02/01/2025 10:21 PM CDT) eGFR 37(L) >=60 mL/min/1. 73 m2 [...] of Race in Diagnosing Kidney Disease, JASN 202). The CKD-EPI equation should not be used for patients with unstable renal function and has not been validated in children and those over 70. Current interpretive data was last reviewed 2021. Blood 02/01/2025 10:2 1 PM CDT 02/01/2025 10:50 PM CDT us Nicholas Jensen MD PhD LAB BLOOD ORDERABLES F inal Result Performing Organization Address City/[facility]/ZIP Co de Phone Number [facility] Department [place] [address] * (ABNORMAL) Basic metabolic panel (02/01/2025 10:21 PM CDT) Pathologist [facility] Sodium 137 135 - 145 mmol/L Potassium, pl 4.5 3.3 - 4.9 mmol/L [facility] Chloride 102 97 - 110 mmol/L [facility] CO2 24 22 - 32 mmol/L [facility] Anion gap 11 2 - 15 mmol/L [facility] BUN 30(H) 6 - 25 mg/dL [facility] Creatinine 1.42(H) 0.60 - 1.10 mg/dL [facility] Glucose 271(H) 70 - 199 mg/dL [facility] Comment: Interpretive Data Fasting glucose [...] 2022. Calcium 8.2(L) 8.5 - 10.3 mg/dL [facility] Blood 02/01/2025 10:2 1 PM CDT 02/01/2025 10:50 PM CDT Nicholas Jensen MD PhD LAB BLOOD ORDERABLES F inal Result Performing Organization Address City/[facility]/ZIP Co de Phone Number [facility] Department [place] [address] * (ABNORMAL) POCT glucose (02/01/2025 7:47 PM CDT) Glucose, POC 278(H) 70 - 199 mg/dL Blood 02/01/2025 7:47 PM CDT 02/01/2025 7:47 PM CDT Nicholas Jensen MD PhD LAB POCT ORDERABLES - DEVICE Final Result Performing Organization Address [facility] Co de Phone Number [facility] [place] [address] * (ABNORMAL) POCT glucose (02/01/2025 5:21 PM CDT) Glucose, POC 204(H) 70 - 199 mg/dL Blood 02/01/2025 5:21 PM CDT 02/01/2025 5:21 PM CDT Nicholas Jensen MD PhD LAB POCT ORDERABLES - DEVICE Final Result Performing Organization Address [facility] de Phone Number [facility] Department [place] [address] * XR Chest 1 view (02/01/2025 5:14 [...] PM CDT 02/01/2025 5:21 PM CDT Barbara A. Henry [employer] LAB BLOOD ORDERABLES Final Result [facility] [place] [address] * (ABNORMAL) Differential, auto (02/01/2025 5:05 PM CDT) Neutrophil abs 8.72(H) 1.50 - 6.50 K/cumm Imm gran abs 0.13(H) 0.00 - 0.10 K/cumm [facility] Lymphocyte abs 0.63(L) 0.80 - 3.30 K/cumm [facility] Monocyte abs 0.87(H) 0.20 - 0.80 K/cumm [facility] Eosinophil abs 0.19 0.00 - 0.50 K/cumm [facility] Basophil abs 0.10 0.00 - 0.10 K/cumm [facility] Neutrophil pct 82.0 % [facility] Comment: Interpretive Data Percent cell count reference ranges are not reported, since discordance with absolute values may lead to misinterpretation of CBC data. Current Interpretive Data was last revised on 2018. Imm gran pct 1.2 % [facility] Comment: Interpretive Data Percent cell count reference ranges are not reported, since discordance with absolute values may lead to misinterpretation of CBC data. Current Interpretive Data was last revised on 2018. Lymphocyte pct 5.9 % [facility] Comment: Interpretive Data Percent cell count reference ranges are not reported, since discordance with absolute values may lead to misinterpretation of CBC data. Current Interpretive Data was last revised on 2018. Monocyte pct 8.2 % [facility] Comment: Interpretive Data Percent cell count reference ranges are not reported, since discordance with absolute values may lead to misinterpretation of CBC data. Current Interpretive Data was last revised on 2018. Eosinophil pct 1.8 % [facility] Comment: Interpretive Data Percent cell count reference ranges are not reported, since discordance with absolute values may lead to misinterpretation of CBC data. Current Interpretive Data was last revised on 2018. Basophil pct 0.9 % [facility] Comment: Interpretive Data Percent cell count reference ranges are not reported, since discordance with absolute values may lead to misinterpretation of CBC data. Current Interpretive Data was last revised on 2018. Blood 02/01/2025 5:05 PM CDT 02/01/2025 5:14 PM CDT Barbara Figueroa [employer] LAB BLOOD ORDERABLES Final Result Performing Organization Address [facility]/ZIP Co de Phone Number [facility] [place] [address] * (ABNORMAL) CBC with auto differential (02/01/2025 5:05 PM CDT) WBC 10.64(H) 3.80 - 9.90 K/cumm Hgb 10.4(L) 11.9 - 15.5 g/dL [facility] Hct 34.3(L) 35.6 - 45.5 % [facility] Plt 217 150 - 400 K/cumm [facility] MPV 12.0 9.1 - 12.3 fL [facility] RBC 3.93 3.90 - 5.20 M/cumm [facility] MCV 87.3 81.3 - 96.4 fL [facility] MCH 26.5(L) 27.1 - 33.3 pg [facility] MCHC 30.3(L) 32.3 - 35.7 g/dL [facility] RDW CV 19.3(H) 11.1 - 14.9 % [facility] RDW SD 61.9(H) 35.7 - 48.1 fL [facility] NRBC abs 0.00 0.00 - 0.01 K/cumm [facility] Blood 02/01/2025 5:05 PM CDT 02/01/2025 5:14 PM CDT Barbara Figueroa NP LAB BLOOD ORDERABLES Final Result Performing Organization Address City/[facility]/ZIP Co de Phone Number [facility] [place] [address] * Magnesium (02/01/2025 5:05 PM CDT) Pathologist [facility] Magnesium 2.0 1.4 - 2.5 mg/dL Blood 02/01/2025 5:05 PM CDT 02/01/2025 5:14 PM CDT us Barbara Figueroa [employer] LAB BLOOD ORDERABLES Final Result [facility] Department [place] [address] * (ABNORMAL) Comprehensive metabolic panel (02/01/2025 5:05 PM CDT) Pathologist [facility] Sodium 142 135 - 145 mmol/L Potassium, pl 4.1 3.3 - 4.9 mmol/L [facility] Chloride 103 97 - 110 mmol/L [facility] CO2 27 22 - 32 mmol/L [facility] Anion gap 12 2 - 15 mmol/L [facility] BUN 30(H) 6 - 25 mg/dL [facility] Creatinine 1.45(H) 0.60 - 1.10 mg/dL [facility] Glucose 191 70 - 199 mg/dL [facility] Comment: Interpretive Data Fasting glucose [...] 2022. Calcium 8.6 8.5 - 10.3 mg/dL [facility] Bilirubin, total 0.3 0.1 - 1.2 mg/dL [facility] Protein, pl 6.7 6.5 - 8.5 g/dL [facility] Albumin 3.4(L) 3.5 - 5.0 g/dL [facility] Alk phos 126 40 - 130 Units/L [facility] ALT 45 7 - 45 Units/L [facility] AST 85(H) 10 - 45 Units/L [facility] Blood 02/01/2025 5:05 PM CDT 02/01/2025 5:14 PM CDT Barbara Figueroa NP LAB BLOOD ORDERABLES Final Result Performing Organization Address [facility] de Phone Number [facility] [place] [address] * aPTT (02/01/2025 4:38 PM CDT) aPTT [...] BLOOD ORDERABLES Final Result Performing Organization Address [facility] de Phone Number [facility] [place] [address] * (ABNORMAL) Protime-INR (02/01/2025 4:38 PM CDT) PT 14.8(H) 9.7 - 13.0 sec INR 1.36(H) 0.90 - 1.20 [facility] Comment: Interpretive data Oral anticoagulant therapeutic ranges: Venous thromboembolism prophylaxis or treatment: 2.0-3.0 CARDIOLOGY Standard range: 2.0-3.0 High-intensity range: 2.5-3.5 Refer to indication-specific guidelines for appropriate target ranges for prosthetic heart valve replacement. Current interpretive data was last revised on 2019. Blood 02/01/2025 4:38 PM CDT 02/01/2025 5:33 PM CDT us Barbara Figueroa NP LAB BLOOD ORDERABLES Final Result ALONA Abreu [facility] Department [place] [address] * PERC CHELI CLOSURE W/IMPLANT (WATCHMAN) [id number] (02/01/2025 4:13 PM CDT) Anatomical Region Laterality Modality X-Ray Angiograph y Narrative 02/01/2025 4:38 PM CDT Table formatting from the original result was not included. Procedure Report - [facility] Ammulet LEFT ATRIAL APPENDAGE OCCLUDER IMPLANT Patient Name: Walker Kulkarni Date of : 1945 Attending (EP): Nicholas Jensen MD, PhD Co-attending (IC): Vadim Wilkins MD [place]: none Referring MD: Rosette Espinoza Anesthesia: MAC [...] talk, could not count money. Hospitalized at [facility]. Six weeks of rehab. History of acute kidney injury. 2021 creatinine greater than 3. Influenza A. Hospitalization at [facility] February 2022. History of yejiw-cj-jvahupc hypoxemic respiratory failure from influenza A. She [...] The access was upsized to place 14 [place] Cook sheath. Left femoral venous access was obtained using micropuncture needle, and using modified Seldinger technique. A Preclose device was deployed. The access was upsized to place a long 10 [place] Cook sheath. ICE was introduced to the RA/RV for initial imaging. There was no CHELI thrombus. CHELI body was shaped like [place]. Maximal CHELI ostial dimension measured 28 mm. Heparin was administered intravenously at serial intervals to maintain ACT between 300 and 400 sec. Trans atrial septal puncture was performed using a Cascade sheath and needle assembly, under ICE and fluoroscopic guidance. The Ammulet sheath was exchanged for the Cascade sheath over the Versacross wire and passed [...] device was unsheathed and deployed by Dr. Jensen. ICE was used to confirm satisfactory positioning [...] The patient was extubated and transferred to [facility] in stable condition. The co-attendings were [...] with plans to deescalate antithrombotic regimen. Nicholas Jensen MD, PhD automobile appraiser [employer] Division of Cardiology, Section of Electrophysiology Nicholas Jensen MD PhD CV ELECTROPHYSIOLOGY P ROCS Final Result * (ABNORMAL) POCT Activated clotting time, low range (02/01/2025 3:44 PM CDT) ACT 329(H) 123 - 168 sec POC Performer 1310 [facility] POC Device Number [id number] [facility] Blood 02/01/2025 3:44 PM CDT 02/01/2025 3:44 PM CDT Nicholas Jensen MD PhD LAB POCT ORDERABLES - DEVICE Final Result Performing Organization Address [facility] de Phone Number [facility] [place] [address] * POCT glucose (02/01/2025 3:32 PM CDT) Glucose, POC 199 70 - 199 mg/dL Blood 02/01/2025 3:32 PM CDT 02/01/2025 3:32 PM CDT Nicholas Jensen MD PhD LAB POCT ORDERABLES - DEVICE Final Result Performing Organization Address [facility] de Phone Number [facility] [place] [address] * (ABNORMAL) POCT Activated clotting time, low range (02/01/2025 3:28 PM CDT) ACT 253(H) 123 - 168 sec POC Performer 1310 [facility] POC Device Number [id number] [facility] Blood 02/01/2025 3:28 PM CDT 02/01/2025 3:28 PM CDT Nicholas Jensen MD PhD LAB POCT ORDERABLES - DEVICE Final Result ALONA FRAGA Lo[facility] Department of Laboratories [place], [place] [id number] * SC AN PROCEDURE PLACEHOLDER (02/01/2025 3:03 PM CDT) Gerry Cisse CRNA - 02/01/2025 3:03 PM CDT Gerry Martin CRNA 02/01/2025 3:03 PM Peripheral IV Catheter Patient location: OR End time: 02/01/2025 2:55 PM Staff: Placed by: CONNECTION WORKER: Gerry Martin CRNA Preprocedure prep: Prep solution: chlorhexadine PPE: provider hat/mask and gloves PIV line: Laterality: left Site: foot Catheter size: 20 g Technique: direct visualization and palpatation Procedure details: good blood return and occlusive dressing applied Number of attempts: 1 Assessment: Events: patient tolerated procedure well with no complications Anthony Donald MD ANESTHESIA ORDERABL ES Final Result * SC AN ELECTIVE ENDOTRACHEAL AIRWAY, SC AN PROCEDURE PLACEHOLDER (02/01/2025 3:02 PM CDT) [...] with: silk tape Number of attempts: 1 Anthony Donald MD ANESTHESIA ORDERABL ES Final Result * POCT glucose (02/01/2025 12:25 PM CDT) Glucose, POC 172 70 - 199 mg/dL Blood 02/01/2025 12:2 5 PM CDT 02/01/2025 12:25 PM CDT Nicholas Jensen MD PhD LAB POCT ORDERABLES - DEVICE Final Result Performing Organization Address [facility] Co de Phone Number [facility] Department [place] [address] * Type and screen (02/01/2025 12:20 PM CDT) Pathologist [facility] Regulo, indirect Negative ABO Rh O Negative [facility] Blood 02/01/2025 12:2 0 PM CDT 02/01/2025 1:24 PM CDT Narrative [facility] - 02/01/2025 2:32 PM CDT Has the patient had Daratumumab or Isatuximab in the past 6 months?->Unknown Loretta Francois [employer] LAB BLOOD BANK TEST ORDER KE Final Result Performing Organization Address [facility] Co de Phone Number [facility] [place] [address] * (ABNORMAL) Protime-INR (02/01/2025 11:30 AM CDT) PT 14.8(H) 9.7 - 13.0 sec INR 1.36(H) 0.90 - 1.20 [facility] Comment: Interpretive data Oral anticoagulant therapeutic ranges: Venous thromboembolism prophylaxis or treatment: 2.0-3.0 CARDIOLOGY Standard range: 2.0-3.0 High-intensity range: 2.5-3.5 Refer to indication-specific guidelines for appropriate target ranges for prosthetic heart valve replacement. Current interpretive data was last revised on 2019. Blood 02/01/2025 11:3 0 AM CDT 02/01/2025 12:39 PM CDT us Loretta Francois NP LAB BLOOD ORDERABLES Shalini olivier Result ALONA FRAGA [facility] Department [place] [address] * US Abdomen Complete W Liver Doppler [...] cm. Electronically signed by: Tania Dai M.D. Amanda BELL IMBrittany US PROCEDURES Final Result * Liver Elastography w/o Imaging W/I&R -[facility] (02/01/2025 9:38 AM CDT) Anatomical Region Laterality Modality Other us Amanda BELL GI PROCEDURE ORDERABLES Edited Result - Final * (ABNORMAL) Protime-INR (01/27/2025) INR 1.90(A) 0.90 - 1.10 Blood 01/27/2025 Historical Provider MD LAB BLOOD ORDERABLES Shalini l Result * Surgical pathology (01/19/2025 1:16 PM CDT) Tissue (Gastric/Stomach biopsy) 01/19/2025 1:16 PM CDT Narrative PATHOLOGY [facility] - 01/23/2025 8:59 AM CDT [address] [address] Tele: Clemencia Schrader MD - Regulatory Compliance Director Note to Patients: This report may contain [...] details. SURGICAL PATHOLOGY REPORT Patient Name: WALKER KULKARNI Address: [address] [place] [address] Gender: F : 1945 (Age: 79) Service: Gastro Location: [facility], Hospital #: [id number] Patient Type: [facility] SAME DAY SURGERY Taken: 01/19/2025 Received 01/20/2025 Reported: 01/23/2025 Physician(s): Diana Prado M.D. ARABELLA Mtz-Ashley DIAGNOSIS: Stomach, antrum, biopsy: - Changes consistent with iron pill gastritis lkb/01/23/2025 08:59 Examining Pathologist: Shanika Valenzuela M.D. Report Reviewed and Electronically Signed By Shanika Valenzuela M.D. SPECIMEN TYPE: A: ANTRUM CLINICAL IMPRESSION AND HISTORY: Iron-deficiency anemia. EGD at outside hospital 10/2024 showed gastric ulcer/erosion. 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 GROSS DESCRIPTION: Received in formalin in a single container with the patient's name, WALKER KULKARNI labeled antrum are multiple elizalde tissue fragments, 0.8 x 0.2 x 0.2 cm in aggregate. The specimen is submitted entirely in cassette A1. [facility]/01/20/2025 08:32 [facility] MICROS[facility]IC DES[facility]: Sections of the antrum biopsy show reactive changes accompanied by scant, brown crystalline debris in the superficial lamina propria and focal, minimal acute inflammation. Neither erosion nor ulceration is seen. Vascular ectasia is not present nor are fibrin thrombi. Intestinal metaplasia is not seen. Helicobacter-like organisms are not identified on H&E stained sections. Clerical Data Follows A; [id number] REPORT IMAGES AND/OR SCANNED DOCUMENTS ONLY VIEWABLE IN PDF FORMAT The immunohistochemical test(s) cited in this report, if any, was developed and its performance characteristics determined by [facility] Pathology Department. It has not been cleared or approved by the U.S. Food and Drug Administration. The FDA has determined that such clearance or approval is not necessary. This test is used for clinical purposes. It should not be regarded as investigational or for research. [facility] Laboratory is certified under the Clinical Laboratory [...] part or completely in the following laboratories: [facility], [address] [place] [address], [address], [place] [address]. us Humza Ledesma MD LAB PATHOLOGY ORDERABLES Fi nal Result PATHOLOGY [facility] Laboratory Receiving [address] [place] [address] * EGD (01/19/2025 12:51 PM CDT) Anatomical Region Laterality Modality Other Narrative Procedure Note Humza Ledesma MD - 01/19/2025 12:51 PM CDT ENDOSCOPY LAB Patient Name: Walker Kulkarni Procedure Date: 01/19/2025 12:51 PM Admit Type: Outpatient Room: [facility] Date of : 1945 Instrument Name: [...] 10/2024 withgastric ulcer/erosions. Per family last colonsocopy [id number]. Plan for EGD/Colon to evaluate. Providers: Humza Ledesma M.D. Referring MD: Amanda Bowser, IRVIN, Hema Castaneda M.D., Lopez Pool M.D., Rosette Espinoza M.D.,Nicholas Jensen M.D. Medicines: Monitored Anesthesia Care Complications: No [...] following this procedure please call my officeat [phone] ([phone]) to speak to my nurses. After hours and evenings please call [phone] speak to the GI fellow cardiac surgeon. Please tell themthat Dr. Ledesma did your procedure and that your were instructed to have the fellow call me or thephysician covering for me to discuss the management of your condition. If you have an urgent problem, please goto the nearest emergency room and have the ER doctorcall my office during the day or [facility] transfer ([phone]) center after hours and weekends to arrange admission or transfer to our facility. - Call my nurse Elidia Wood RN in the GI office at [phone] for your final pathology results in 7 [...] PM CDT ENDOSCOPY LAB Patient Name: Walker Kulkarni Procedure Date: 01/19/2025 12:50 PM Admit Type: Outpatient Room: [facility] 6 Date of : 1945 Instrument Name: [id number] Gender: Female Note Status: Finalized Procedure: Colonoscopy [...] 10/2024 withgastric ulcer/erosions. Per family last colonsocopy [id number]. Plan for EGD/Colon to evaluate Providers: Humza Ledesma M.D. Referring MD: Aamnda Bowser PA-C, Hema Morrison M.D., Nicholas Jensen M.D. Medicines: Monitored Anesthesia Care Complications: No [...] following this procedure please call my officeat [phone] ([phone]) to speak to my nurses. After hours and evenings please call [phone] speak to the GI fellow cardiac surgeon. Please tell themthat Dr. Ledesma did your procedure and that your were instructed to have the fellow call me or thephysician covering for me to discuss the management of your condition. If you have an urgent problem, please goto the nearest emergency room and have the ER doctorcall my office during the day or [facility] transfer ([phone]) center after hours and weekends to arrange [...] be considered if clinically indicated. POC Performer [id number] ALONA [facility] Blood 01/19/2025 12:3 8 PM CDT 01/19/2025 12:38 PM CDT Humza Ledesma MD LAB POCT ORDERABLES - DEVIC E Final Result [facility] [address] [place] [address] * (ABNORMAL) Protime-INR (01/19/2025 11:20 AM CDT) PT 13.1(H) 9.7 - 13.0 sec INR 1.21(H) 0.90 - 1.20 [facility] Comment: Interpretive data Oral anticoagulant therapeutic ranges: Venous thromboembolism prophylaxis or treatment: 2.0-3.0 CARDIOLOGY Standard range: 2.0-3.0 High-intensity range: 2.5-3.5 Refer to indication-specific guidelines for appropriate target ranges for prosthetic heart valve replacement. Current interpretive data was last revised on 2019. Blood 01/19/2025 11:2 0 AM CDT 01/19/2025 11:28 AM CDT us Humza Ledesma MD LAB BLOOD ORDERABLES Final Result [facility] [address] [place] [address] * Cardiology Document Scan (01/18/2025 10:35 AM CDT) Anatomical Region Laterality Modality Other Nicholas Jensen MD PhD CV CARDIAC SERVICES SC OCEDURES Final Result * CT Heart Morphology [...] Electronically signed by: Cesario Mckeon M.D. Nicholas Jensen MD PhD IMG CT PROCEDURES Shalini l Result * (ABNORMAL) POCT creatinine (01/17/2025 1:07 PM CDT) Creatinine POC 1.6(H) 0.6 - 1.1 mg/dL Blood 01/17/2025 1:07 PM CDT 01/17/2025 1:07 PM CDT Nicholas Jensen MD PhD LAB POCT ORDERABLES - DEVICE Final Result ALONA [facility] Department [place] [address] * (ABNORMAL) eGFR (01/17/2025 12:38 PM CDT) [...] of Race in Diagnosing Kidney Disease, JASN 202). The CKD-EPI equation should not be used for patients with unstable renal function and has not been validated in children and those over 70. Current interpretive data was last reviewed 2021. Blood 01/17/2025 12:3 8 PM CDT 01/17/2025 1:16 PM CDT us Loretta Francois [employer]ACE [employer]KER LAB BLOOD ORDERABLES Shalini olivier Result [facility] [place] [address] * Differential, auto (01/17/2025 12:38 PM CDT) Neutrophil abs 5.62 1.50 - 6.50 K/cumm Imm gran abs 0.04 0.00 - 0.10 K/cumm [facility] Lymphocyte abs 1.03 0.80 - 3.30 K/cumm [facility] Monocyte abs 0.60 0.20 - 0.80 K/cumm [facility] Eosinophil abs 0.16 0.00 - 0.50 K/cumm [facility] Basophil abs 0.10 0.00 - 0.10 K/cumm [facility] Neutrophil pct 74.6 % [facility] Comment: Interpretive Data Percent cell count reference ranges are not reported, since discordance with absolute values may lead to misinterpretation of CBC data. Current Interpretive Data was last revised on 2018. Imm gran pct 0.5 % [facility] Comment: Interpretive Data Percent cell count reference ranges are not reported, since discordance with absolute values may lead to misinterpretation of CBC data. Current Interpretive Data was last revised on 2018. Lymphocyte pct 13.6 % [facility] Comment: Interpretive Data Percent cell count reference ranges are not reported, since discordance with absolute values may lead to misinterpretation of CBC data. Current Interpretive Data was last revised on 2018. Monocyte pct 7.9 % [facility] Comment: Interpretive Data Percent cell count reference ranges are not reported, since discordance with absolute values may lead to misinterpretation of CBC data. Current Interpretive Data was last revised on 2018. Eosinophil pct 2.1 % [facility] Comment: Interpretive Data Percent cell count reference ranges are not reported, since discordance with absolute values may lead to misinterpretation of CBC data. Current Interpretive Data was last revised on 2018. Basophil pct 1.3 % [facility] Comment: Interpretive Data Percent cell count reference ranges are not reported, since discordance with absolute values may lead to misinterpretation of CBC data. Current Interpretive Data was last revised on 2018. Blood 01/17/2025 12:3 8 PM CDT 01/17/2025 1:16 PM CDT Nicholas Jensen MD PhD LAB BLOOD ORDERABLES F inal Result Performing Organization Address City/[facility]/ZIP Co de Phone Number [facility] [place] [address] * (ABNORMAL) Urinalysis reflex to microscopic and culture Urine, clean voided (01/17/2025 12:38 PM CDT) Color, ur Yellow Yellow Clarity, ur Clear Clear [facility] Specific gravity, ur 1.025 1.003 - 1.030 [facility] pH, urine 6.5 [facility] Comment: Interpretive Data U rine pH is affected by diet, medications, systemic acid-base disturbances, and renal tubular function. pH may affect urinary stone formation. For example, urine pH below 6.0 may help reduce the tendency for calcium phosphate stones and pH greater than 6.0 may reduce the tendency for uric acid stone formation. Source: [facility] Current Interpretive Data was last revised on 2017 Protein, ur ql Trace Negative [facility] Glucose, ur ql Negative Negative [facility] Ketones, ur Negative Negative [facility] Bilirubin, ur Negative Negative [facility] Blood, ur Negative Negative [facility] Urobilinogen, ur 2.0(A) <2.0 mg/dL [facility] Nitrite, ur Negative Negative [facility] Leukocyte esterase, ur Negative Negative [facility] UA reflex comment Reflex conditions for microscopic UA and culture not met. [facility] Urine, clean voided 01/17/2025 12:38 PM CDT 01/17/2025 1:10 PM CDT Nicholas Jensen MD PhD LAB MICROBIOLOGY - GEN ERAL ORDERABLES Final Result Performing Organization Address [facility] Co de Phone Number [facility] Department [place] [address] * (ABNORMAL) CBC with auto differential (01/17/2025 12:38 PM CDT) Pathologist [facility] WBC 7.55 3.80 - 9.90 K/cumm Hgb 10.3(L) 11.9 - 15.5 g/dL [facility] Hct 35.3(L) 35.6 - 45.5 % [facility] Plt 281 150 - 400 K/cumm [facility] MPV 12.6(H) 9.1 - 12.3 fL [facility] RBC 4.17 3.90 - 5.20 M/cumm [facility] MCV 84.7 81.3 - 96.4 fL [facility] MCH 24.7(L) 27.1 - 33.3 pg [facility] MCHC 29.2(L) 32.3 - 35.7 g/dL [facility] RDW CV 19.8(H) 11.1 - 14.9 % [facility] RDW SD 60.3(H) 35.7 - 48.1 fL [facility] NRBC abs 0.00 0.00 - 0.01 K/cumm [facility] Blood 01/17/2025 12:3 8 PM CDT 01/17/2025 1:16 PM CDT Nicholas Jensen MD PhD LAB BLOOD ORDERABLES F inal Result [facility] Department [place] [address] * Type and screen (01/17/2025 12:38 PM CDT) Pathologist [facility] Regulo, indirect Negative ABO Rh O Negative [facility] Blood 01/17/2025 12:3 8 PM CDT 01/17/2025 1:21 PM CDT Narrative [facility] - 01/17/2025 2:14 PM CDT Has the patient had Daratumumab or Isatuximab in the past 6 months?->Unknown us Loretta Edwardssherin Francois [employer] LAB BLOOD BANK TEST ORDER KE Final Result [facility] Department [place] [address] * (ABNORMAL) Comprehensive metabolic panel (01/17/2025 12:38 PM CDT) Sodium 142 135 - 145 mmol/L Potassium, pl 4.5 3.3 - 4.9 mmol/L [facility] Chloride 103 97 - 110 mmol/L [facility] CO2 28 22 - 32 mmol/L [facility] Anion gap 11 2 - 15 mmol/L [facility] BUN 26(H) 6 - 25 mg/dL [facility] Creatinine 1.54(H) 0.60 - 1.10 mg/dL [facility] Glucose 191 70 - 199 mg/dL [facility] Comment: Interpretive Data Fasting glucose [...] 2022. Calcium 9.0 8.5 - 10.3 mg/dL [facility] Bilirubin, total 0.3 0.1 - 1.2 mg/dL [facility] Protein, pl 7.0 6.5 - 8.5 g/dL [facility] Albumin 3.9 3.5 - 5.0 g/dL [facility] Alk phos 125 40 - 130 Units/L [facility] ALT 40 7 - 45 Units/L [facility] AST 73(H) 10 - 45 Units/L [facility] Blood 01/17/2025 12:3 8 PM CDT 01/17/2025 1:16 PM CDT Loretta Francois NP LAB BLOOD ORDERABLES Shalini olivier Result Performing Organization Address [facility] de Phone Number [facility] Department [place] [address] * (ABNORMAL) POCT hemoglobin A1c (01/17/2025 11:45 AM CDT) Hgb A1C, POC 6.7(H) 4.0 - 5.6 % Est Average Gluc POC 146 mg/dL [facility] Comment: The ADA recommends reporting an estimated Average Glucose (eAG) with all Hemoglobin A1c results using the equation derived from a study of 507 normal and diabetic adults. Minority populations were underrepresented and children were not included. (Diabetes Care 31:3243-6234, 2008). The eAG is not equivalent to a fasting glucose. Blood 01/17/2025 11:4 5 AM CDT 01/17/2025 11:45 AM CDT Nicholas Jensen MD PhD POINT OF CARE TEST ORD ERABLES Final Result Performing Organization Address [facility] de Phone Number [facility] [place] [address] * Dexa Bone Density (01/11/2019 2:40 PM CDT) Anatomical Region Laterality Modality Wrist N/A Radiographic Zeinab ging Narrative 01/13/2019 2:57 PM CDT Patient Name: Walker Kulkarni Date of : 1945 Date of scan: 01/11/2019 Bone mineral density was performed on a [employer] Discovery Densitometer. Machine Cross-calibration and Precision studies [...] by the International Society of Clinical Densitometry. [id number] Berlin Escobar MD IMG DXA PROCEDURES Final Resul t from Last 3 Months or Most Recently Relevant to Health Maintenance Insurance MEDICARE [facility] MEDICARE SUPPLEMENT IDPA MEDICARE [facility] MEDICARE [facility] MEDICARE SUPPLEMENT [facility] Advance Directives For more information, please contact: [phone] * Full Code (Latest Code Status on [...] 9:33 PM 03/02/2022 10:05 PM Care Teams Core Layer Machine Operator Relationship Specialty Start Date End Date Lopez Pool MD PCP - General Family Medicine 03/18/22 Hema Castaneda MD Consulting Physician Cardiology 01/11/19 Colleen Bain MD Referring Physician Endocrinology Diabetes & Metabolism 04/07/19 Rosette Espinoza MD Referring Physician Cardiology 04/07/19 Jacqueline Schaeffer, firearms assembly supervisor Failure Coordinator Cardiology 07/13/24 Anat Hutchison 07/13/24
--- OUTSIDE RECORDS SUMMARY | 2025-04-18 10:33 | XMS_ITS | Encounter Summary ---
Author Organization [facility] [employer] [facility] Address [address] [place] [address] Phone Care Team Providers Care Adult Family Home Program Manager Name Role Phone Elmer Wallace MD Primary Care Provider [phone] Hema Castaneda MD Unavailable [phone] Colleen Bain MD Unavailable [phone] Rosette Espinoza MD Unavailable [phone] Jenni Hartley RN Unavailable Unavailable Meenu Jones NP Unavailable [phone] Lopez Pool MD Primary Care Provider [phone] Jacqueline Schaeffer RN Unavailable Unavailable Jenni Hartley RN Unavailable Unavailable Anat Hutchison Unavailable Unavailable Zeynep Pérez RN Unavailable [phone] Encounter Details Date Type Department Care Team [...] on file Legal 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 Gender Identity Female 07/13/2018 9:28 AM CDT Sexual Orientation Not on file 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 Not on file Not on file documented as of this encounter Plan of Treatment Upcoming Encounters Date Type Department Care Team (Late st Contact Info) Description 05/03/2025 10:00 AM CDT Hospital Encounter [facility] Endoscopy [address] [address] Sea Ignacio MD [address] [place] [address] 05/03/2025 10:00 AM CDT - 05/03/2025 10:45 AM CDT Surgery [facility] Endoscopy [address] [address] Sea Ignacio MD [address] [place] [address] COLONOSCOPY Scheduled Procedures Name Priority Associated Diagnoses [...] documented as of this encounter Care Teams Adult Family Home Program Manager Relationship Specialty Start Date End Date Elmer Wallace MD PCP - General 02/09/17 03/17/22 Lopez Pool MD PCP - General Family Medicine 03/18/22 Hema Castaneda MD Consulting Physician Cardiology 01/11/19 Colleen Bain MD Referring Physician Endocrinology Diabetes & Metabolism 04/07/19 Rosette Espinoza MD Referring Physician Cardiology 04/07/19 Jenni Hartley, RN Registered Nurse Cardiology 04/02/21 04/22/21 Meenu Jones NP Biometrics Head Cardiology 04/02/21 04/22/21 Jacqueline Schaeffer, staff pharmacist hospital Failure Coordinator Cardiology 07/13/24 Jenni Hartley, RN Registered Nurse 07/13/24 08/01/24 Anat Hutchison 07/13/24 Zeynep Pérez, MIRI [address] [facility] [address] [place] [address] [facility] Outpatient Tamping Machine Operator [address] Forms 02/03/25 03/02/25 documented as of this encounter
--- OUTSIDE RECORDS SUMMARY | 2025-04-18 10:33 | XMS_ITS | Encounter Summary ---
Author Organization [facility] [employer] [facility] Address [address] [place] [address] Phone Care Team Providers Care Spiral Weaver Name Role Phone Elmer Wallace MD Primary Care Provider Hema Castaneda MD Unavailable [phone] Colleen Bain MD Unavailable [phone] Rosette Espinoza MD Unavailable [phone] Jenni Hartley RN Unavailable Unavailable Meenu Jones NP Unavailable [phone] Lopez Pool MD Primary Care Provider [phone] Jacqueline Schaeffer RN Unavailable Unavailable Jenni Hartley RN Unavailable Unavailable Anat Hutchison Unavailable Unavailable Zeynep Pérez RN Unavailable [phone] Encounter Details Date Type Department Care Team [...] on file Legal 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 Gender Identity Female 07/13/2018 9:28 AM CDT Sexual Orientation Not on file 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 Not on file Not on file documented as of this encounter Plan of Treatment Upcoming Encounters Date Type Department Care Team (Late st Contact Info) Description 05/03/2025 10:00 AM CDT Hospital Encounter [facility] Endoscopy [address] [place] [address] Sea Ignacio MD [address] [place] [address] 05/03/2025 10:00 AM CDT - 05/03/2025 10:45 AM CDT Surgery [facility] Endoscopy [address] [address] Sea Ignacio MD [address] [place] [address] COLONOSCOPY Scheduled Procedures Name Priority Associated Diagnoses Date/Ti me COLONOSCOPY Iron deficiency anemia, unspecified iron deficiency anemia type Abnormal colonoscopy 05/03/2025 10:00 AM CDT documented as of this encounter Procedures Procedure Name Priority Date/Time Associated Diagnosis Comments SCAN - LABS 05/28/2019 documented in this encounter Results * SCAN - LABS (05/28/2019) Provider Scanning Final Result documented in this encounter Visit Diagnoses Not on filedocumented in this encounter Additional Health Concerns Infection Onset Date Last Indicated Resolved Time COVID: Suspected 03/13/2022 03/13/2022 03/13/2022 6:26 PM CDT documented as of this encounter Care Teams Spiral Weaver Relationship Specialty Start Date End Date Elmer Wallace MD PCP - General 02/09/17 03/17/22 Lopez Pool MD PCP - General Family Medicine 03/18/22 Hema Castaneda MD Consulting Physician Cardiology 01/11/19 Colleen Bain MD Referring Physician Endocrinology Diabetes & Metabolism 04/07/19 Rosette Espinoza MD Referring Physician Cardiology 04/07/19 Jenni Hartley, RN Registered Nurse Cardiology 04/02/21 04/22/21 Meenu Jones NP Music Industry Internship Cardiology 04/02/21 04/22/21 Jacqueline Schaeffer, freight brakeman Failure Coordinator Cardiology 07/13/24 Jenni Hartley, RN Registered Nurse 07/13/24 08/01/24 Anat Hutchison 07/13/24 Zeynep Pérez, MIRI [address] [facility] [address] [place] [id number] [facility] Outpatient Manager Visual 02/03/25 03/02/25 documented as of this encounter
--- OUTSIDE RECORDS SUMMARY | 2025-04-18 10:33 | XMS_ITS | Encounter Summary ---
Author Organization [facility] Address [address] [place] [address] Phone Care Team Providers Care Mat Roller Name Role Phone Hema Castaneda MD Unavailable [phone] Colleen Bain MD Unavailable Rosette Espinoza MD Unavailable Lopez Pool MD Primary Care Provider [phone] Jacqueline Schaeffer RN Unavailable Unavailable Anat Hutchison Unavailable Unavailable Encounter Details Date Type Department Care Team (Late st Contact Info) Description 04/03/2025 Results Follow-Up [facility] Cardiology [address] [facility] Advanced Medicine 8th [place] [address] [place] [id number] Nicholas Jensen MD PhD [address] [facility] [address] [place] [address] Cardiology Document Scan Social History Tobacco Use Types Packs/Day Years Used Date Smoking Tobacco: Former Cigarettes 1 54 S tarted: 2 Passive Smoke Exposure: Past Smokeless Tobacco: Never Alcohol Use Standard Drinks/Week Comments No 0 (1 standard drink = 0.6 oz pur e alcohol) minimal C Utilities Answer Date Recorded In the past 12 months has [employer] electric, gas, oil, or water company threatened [...] attend chur ch or adventist services? Never 02/03/2025 Do you belong to any clubs o r organizations such as denominational groups, unions, fraternal or athletic groups, or [...] in a skilled nursing (including now)? No 03/14/2022 Housing Stability Vital Sign Answer Sebas e Recorded In the last 12 months, was t here a time when you were not able to pay the mortgage or rent on time? No 02/03/2025 In the past 12 months, how m any times have you moved where you were living? 0 02/03/2025 At any time in the past 12 [facility], were you homeless or living in a skilled nursing (including now)? No 02/03/2025 Personal Safety Answer Date Recorded Have you ever been in or are you currently in a harmful physical or emotional relationship or is someone making you feel afraid or unsafe? 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 Not on file Not on file documented as of this encounter Plan of Treatment Upcoming Encounters Date Type Department Care Team (Late st Contact Info) Description 05/03/2025 10:00 AM CDT Hospital Encounter [facility] Endoscopy [address] [address] Sea Ignacio MD [address] [place] [address] 05/03/2025 10:00 AM CDT - 05/03/2025 10:45 AM CDT Surgery [facility] Endoscopy [address] [id number] Sea Ignacio MD [address] [place] [address] COLONOSCOPY Scheduled Procedures Name Priority Associated Diagnoses Date/Ti me COLONOSCOPY Iron deficiency anemia, unspecified iron deficiency anemia type Abnormal colonoscopy 05/03/2025 10:00 AM CDT documented as of this encounter Visit Diagnoses Not on filedocumented in this encounter Care Teams Mat Roller Relationship Specialty Start Date End Date Lopez Pool MD PCP - General Family Medicine 03/18/22 Hema Castaneda MD Consulting Physician Cardiology 01/11/19 Colleen Bain MD Referring Physician Endocrinology Diabetes & Metabolism 04/07/19 Rosette Espinoza MD Referring Physician Cardiology 04/07/19 Jacqueline Schaeffer, watch adjuster Failure Coordinator Cardiology 07/13/24 Anat Hutchison 07/13/24 documented as of this encounter
--- OUTSIDE RECORDS SUMMARY | 2025-04-18 10:33 | XMS_ITS | Encounter Summary ---
Author Organization [facility] [employer] of [facility] Address [address] [place] [address] Phone Care Team Providers Care Supervisor Toy Assembly Name Role Phone Hema Castaneda MD Unavailable [phone] Colleen Bain MD Unavailable [phone] Rosette Espinoza MD Unavailable Lopez Pool MD Primary Care Provider [phone] Jacqueline Schaeffer RN Unavailable Unavailable Anat Hutchison Unavailable Unavailable Zeynep Pérez RN Unavailable [phone] Encounter Details Date Type Department Care Team [...] How often do you attend chur or episcopalian services? Never 03/14/2022 Do you belong to any clubs o r organizations such as oriental orthodox groups, unions, fraternal or athletic groups, or [...] in a intermediate (including now)? No 03/14/2022 Personal Safety Answer Date Recorded Have you ever been in or are you currently in a harmful physical or emotional relationship or is someone making you feel afraid or unsafe? 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 Not on file Not on file documented as of this encounter Plan of Treatment Upcoming Encounters Date Type Department Care Team (Late st Contact Info) Description 05/03/2025 10:00 AM CDT Hospital Encounter [facility] Endoscopy [address] [place] [address] Sea Ignacio MD [address] [place] [address] 05/03/2025 10:00 AM CDT - 05/03/2025 10:45 AM CDT Surgery [facility] Endoscopy [address] [address] Sea Ignacio MD [address] [place] [address] COLONOSCOPY Scheduled Procedures Name Priority Associated Diagnoses Date/Ti me COLONOSCOPY Iron deficiency anemia, unspecified iron deficiency anemia type Abnormal colonoscopy 05/03/2025 10:00 AM CDT documented as of this encounter Procedures Procedure Name Priority Date/Time Associated Diagnosis Comments CARDIOLOGY DOCUMENT SCAN 08/04/2024 documented in this encounter Results * Cardiology Document Scan (08/04/2024) Anatomical Region Laterality Modality Other us Provider Scanning CV CARDIAC SERVICES PROCEDURES Final Result documented in this encounter Visit Diagnoses Not on filedocumented in this encounter Care Teams Supervisor Toy Assembly Relationship Specialty Start Date End Date Lopez Pool MD PCP - General Family Medicine 03/18/22 Hema Castaneda MD Consulting Physician Cardiology 01/11/19 Colleen Bain MD Referring Physician Endocrinology Diabetes & Metabolism 04/07/19 Rosette Espinoza MD Referring Physician Cardiology 04/07/19 Jacqueline Schaeffer guest services agent Failure Coordinator Cardiology 07/13/24 Anat Hutchison 07/13/24 Zeynep Pérez, RN [address] [facility] [address] [place] [id number] [facility] Outpatient Lunchroom Supervisor 02/03/25 03/02/25 documented as of this encounter
--- OUTSIDE RECORDS SUMMARY | 2025-04-18 10:33 | XMS_ITS | Encounter Summary ---
Author Organization [facility] Address [address] [place] [address] Care Team Providers Care Checker Product Design Name Role Phone Elmer Wallace MD Primary Care Provider Hema Castaneda MD Unavailable [phone] Colleen Bain MD Unavailable [phone] Rosette Espinoza MD Unavailable [phone] Jenni Hartley RN Unavailable Unavailable Meenu Jones NP Unavailable [phone] Lopez Pool MD Primary Care Provider [phone] Jacqueline Schaeffer RN Unavailable Unavailable Jenni Hartley RN Unavailable Unavailable Anat Hutchison Unavailable Unavailable Zeynep Pérez RN Unavailable [phone] Encounter Details Date Type Department Care Team (Late st Contact Info) Description 10/20/2019 Telephone [facility] Transplant Heart [address] [facility] [phone] [place] [address] Genesis Brito Social History Tobacco Use Types Packs/Day Years Used Date Smoking Tobacco: Former Cigarettes Q uit: 2006 Smokeless Tobacco: Never Alcohol Use Standard Drinks/Week Comments No 0 (1 standard drink = 0.6 oz pur e alcohol) minimal Comments Unknown Sex and Gender Information Value Date Recorded Sex Assigned at Not on file Legal Sex Female 3:00 AM GLASS CURVATURE GAUGER Gender Identity Female 07/13/2018 9:28 AM CDT Sexual Orientation Not on file 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 Not on file Not on file documented as of this encounter Plan of Treatment Upcoming Encounters Date Type Department Care Team (Late st Contact Info) Description 05/03/2025 10:00 AM CDT Hospital Encounter [facility] Endoscopy [address] [place] [address] Sea Ignacio MD [address] [place] [address] 05/03/2025 10:00 AM CDT - 05/03/2025 10:45 AM CDT Surgery [facility] Endoscopy [address] [address] Sea Ignacio MD [address] [place] [address] COLONOSCOPY Scheduled Procedures Name Priority Associated Diagnoses Date/Ti me COLONOSCOPY Iron deficiency anemia, unspecified iron deficiency anemia type Abnormal colonoscopy 05/03/2025 10:00 AM CDT documented as of this encounter Visit Diagnoses Not on filedocumented in this encounter Additional Health Concerns Infection Onset Date Last Indicated Resolved Time COVID: Suspected 03/13/2022 03/13/2022 03/13/2022 6:26 PM CDT documented as of this encounter Care Teams Checker Product Design Relationship Specialty Start Date End Date Elmer Wallace MD PCP - General 02/09/17 03/17/22 Lopez Pool MD PCP - General Family Medicine 03/18/22 Hema Castaneda MD Consulting Physician Cardiology 01/11/19 Colleen Bain MD Referring Physician Endocrinology Diabetes & Metabolism 04/07/19 Rosette Espinoza MD Referring Physician Cardiology 04/07/19 Jenni Hartley, RN Registered Nurse Cardiology 04/02/21 04/22/21 Meenu Jones NP Underwriter Cardiology 04/02/21 04/22/21 Jacqueline Schaeffer, office services specialist Failure Coordinator Cardiology 07/13/24 Jenni Hartley, RN Registered Nurse 07/13/24 08/01/24 Anat Hutchison 07/13/24 Zeynep Pérez, MIRI [address] [facility] [address] [place] [id number] [facility] Outpatient Group Sales Representative 02/03/25 03/02/25 documented as of this encounter
--- OUTSIDE RECORDS SUMMARY | 2025-04-18 10:33 | XMS_ITS | Encounter Summary ---
Author Organization [facility] [employer] [facility] Address [address] [place] [address] Phone Care Team Providers Care Security Control Assessor Name Role Phone Elmer Wallace MD Primary Care Provider Hema Castaneda MD Unavailable [phone] Colleen Bain MD Unavailable [phone] Rosette Espinoza MD Unavailable [phone] Jenni Hartley RN Unavailable Unavailable Meenu Jones NP Unavailable [phone] Lopez Pool MD Primary Care Provider [phone] Jacqueline Schaeffer RN Unavailable Unavailable Jenni Hartley RN Unavailable Unavailable Anat Hutchison Unavailable Unavailable Zeynep Pérez RN Unavailable [phone] Encounter Details Date Type Department Care Team (Latest Contact Info) Description 07/19/2020 Orders Only [facility] Scanning, Provider Social History Tobacco Use Types Packs/Day Years Used Date Smoking Tobacco: Former Cigarettes Q uit: 2006 Smokeless Tobacco: Never Alcohol Use Standard Drinks/Week Comments No 0 (1 standard drink = 0.6 oz pur e alcohol) minimal Comments Unknown Sex and Gender Information Value Date Recorded Sex Assigned at Not on file Legal Sex Female 3:00 AM EMERGENCY COMMUNICATIONS OPERATOR Gender Identity Female 07/13/2018 9:28 AM CDT Sexual Orientation Not on file 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 Not on file Not on file documented as of this encounter Plan of Treatment Upcoming Encounters Date Type Department Care Team (Late st Contact Info) Description 05/03/2025 10:00 AM CDT Hospital Encounter [facility] Endoscopy [address] [place] [address] Sea Ignacio MD [address] [place] [address] 05/03/2025 10:00 AM CDT - 05/03/2025 10:45 AM CDT Surgery [facility] Endoscopy [address] [address] Sea Ignacio MD [address] [place] [address] COLONOSCOPY Scheduled Procedures Name Priority Associated Diagnoses Date/Ti me COLONOSCOPY Iron deficiency anemia, unspecified iron deficiency anemia type Abnormal colonoscopy 05/03/2025 10:00 AM CDT documented as of this encounter Procedures Procedure Name Priority Date/Time Associated Diagnosis Comments SCAN - LABS 07/19/2020 documented in this encounter Results * SCAN - LABS (07/19/2020) Provider Scanning Final Result documented in this encounter Visit Diagnoses Not on filedocumented in this encounter Additional Health Concerns Infection Onset Date Last Indicated Resolved Time COVID: Suspected 03/13/2022 03/13/2022 03/13/2022 6:26 PM CDT documented as of this encounter Care Teams Security Control Assessor Relationship Specialty Start Date End Date Elmer Wallace MD PCP - General 02/09/17 03/17/22 Lopez Pool MD PCP - General Family Medicine 03/18/22 Hema Castaneda MD Consulting Physician Cardiology 01/11/19 Colleen Bain MD Referring Physician Endocrinology Diabetes & Metabolism 04/07/19 Rosette Espinoza MD Referring Physician Cardiology 04/07/19 Jenni Hartley, RN Registered Nurse Cardiology 04/02/21 04/22/21 Meenu Jones NP Supervisor Frame Sample And Pattern Cardiology 04/02/21 04/22/21 Jacqueline Schaeffer, transfer car operator drier Failure Coordinator Cardiology 07/13/24 Jenni Hartley, RN Registered Nurse 07/13/24 08/01/24 Anat Hutchison 07/13/24 Zeynep Pérez, MIRI [address] [facility] [address] [place] [id number] [facility] Outpatient Performance Management Consultant 02/03/25 03/02/25 documented as of this encounter
--- OUTSIDE RECORDS SUMMARY | 2025-04-18 10:33 | XMS_ITS | Encounter Summary ---
Author Organization [facility] Address [address] [place] [address] Phone Care Team Providers Care Agency Director Name Role Phone Hema Castaneda MD Unavailable [phone] Colleen Bain MD Unavailable Rosette Espinoza MD Unavailable [phone] Lopez Pool MD Primary Care Provider [phone] Jacqueline Schaeffer RN Unavailable Unavailable Anat Hutchison Unavailable Unavailable Encounter Details Date Type Department Care Team (Latest Contact Info) Description 03/06/2025 Results Follow-Up [facility] Cardiology [address] [facility] Advanced Medicine 8th [place] [address] [place] [id number] Nicholas Jensen MD PhD [address] [facility] [address] [place] [address] Transesophageal Echocardiogram (MARIO) W Possible Cardioversion Social History Tobacco Use Types Packs/Day Years Used Date Smoking Tobacco: Former Cigarettes 1 54 S tarted: 2 Passive Smoke Exposure: Past Smokeless Tobacco: Never Alcohol Use Standard Drinks/Week Comments No 0 (1 standard drink = 0.6 oz pur e alcohol) minimal [facility] Utilities Answer Date Recorded In the past 12 months has [employer], gas, oil, or water company threatened to [...] often do you attend chur ch or synagogue services? 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 Not on file Not on file documented as of this encounter Plan of Treatment Upcoming Encounters Date Type Department Care Team (Late st Contact Info) Description 05/03/2025 10:00 AM CDT Hospital Encounter [facility] Endoscopy [address] [place] [address] Sea Ignacio MD [address] [place] [address] 05/03/2025 10:00 AM CDT - 05/03/2025 10:45 AM CDT Surgery [facility] Endoscopy [address] [place] [address] Sea Ignacio MD [address] [place], [place] [id number] COLONOSCOPY Scheduled Procedures Name Priority Associated Diagnoses Date/Ti me COLONOSCOPY Iron deficiency anemia, unspecified iron deficiency anemia type Abnormal colonoscopy 05/03/2025 10:00 AM CDT documented as of this encounter Visit Diagnoses Not on filedocumented in this encounter Care Teams Agency Director Relationship Specialty Start Date End Date Lopez Pool MD PCP - General Family Medicine 03/18/22 Hema Castaneda MD Consulting Physician Cardiology 01/11/19 Colleen Bain MD Referring Physician Endocrinology Diabetes & Metabolism 04/07/19 Rosette Espinoza MD Referring Physician Cardiology 04/07/19 Jacqueline Schaeffer, agronomy advisor Failure Coordinator Cardiology 07/13/24 Anat Hutchison 07/13/24 documented as of this encounter
--- OUTSIDE RECORDS SUMMARY | 2025-04-18 10:33 | XMS_ITS | Encounter Summary ---
Author Organization [facility] [employer] [facility] Address [address] [place] [address] Phone Care Team Providers Care Production Drilling Machine Operator Name Role Phone Elmer Walalce MD Primary Care Provider Hema Castaneda MD Unavailable [phone] Colleen Bain MD Unavailable [phone] Rosette Espinoza MD Unavailable [phone] Jenni Hartley RN Unavailable Unavailable Meenu Jones NP Unavailable [phone] Lopez Pool MD Primary Care Provider [phone] Jacqueline Schaeffer RN Unavailable Unavailable Jenni Hartley RN Unavailable Unavailable Anat Hutchison Unavailable Unavailable Zeynep Pérez RN Unavailable [phone] Encounter Details Date Type Department Care Team [...] on file Legal Sex Female 3:00 AM WRECKER OPERATOR Gender Identity Female 07/13/2018 9:28 AM CDT Sexual Orientation Not on file 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 Not on file Not on file documented as of this encounter Plan of Treatment Upcoming Encounters Date Type Department Care Team (Late st Contact Info) Description 05/03/2025 10:00 AM CDT Hospital Encounter [facility] Endoscopy [address] [place] [address] Sea Ignacio MD [address] [place] [address] 05/03/2025 10:00 AM CDT - 05/03/2025 10:45 AM CDT Surgery [facility] Endoscopy [address] [address] [address] Sea Ignacio MD [address] [place] [address] COLONOSCOPY Scheduled Procedures Name Priority Associated Diagnoses Date/Ti me COLONOSCOPY Iron deficiency anemia, unspecified iron deficiency anemia type Abnormal colonoscopy 05/03/2025 10:00 AM CDT documented as of this encounter Procedures Procedure Name Priority Date/Time Associated Diagnosis Comments SCAN - LABS 09/09/2019 documented in this encounter Results * SCAN - LABS (09/09/2019) Provider Scanning Final Result documented in this encounter Visit Diagnoses Not on filedocumented in this encounter Additional Health Concerns Infection Onset Date Last Indicated Resolved Time COVID: Suspected 03/13/2022 03/13/2022 03/13/2022 6:26 PM CDT documented as of this encounter Care Teams Production Drilling Machine Operator Relationship Specialty Start Date End Date Elmer Wallace MD PCP - General 02/09/17 03/17/22 Lopez Pool MD PCP - General Family Medicine 03/18/22 Hema Castaneda MD Consulting Physician Cardiology 01/11/19 Colleen Bain MD Referring Physician Endocrinology Diabetes & Metabolism 04/07/19 Rosette Espinoza MD Referring Physician Cardiology 04/07/19 Jenni Hartley, RN Registered Nurse Cardiology 04/02/21 04/22/21 Meenu Jones NP Re Recording Mixer Cardiology 04/02/21 04/22/21 Jacqueline Schaeffer, press tender incendiary grenade Failure Coordinator Cardiology 07/13/24 Jenni Hartley, RN Registered Nurse 07/13/24 08/01/24 Anat Hutchison 07/13/24 Zeynep Pérez, MIRI [address] [facility] [address] [place] [id number] [facility] Outpatient Bulk Delivery Driver 02/03/25 03/02/25 documented as of this encounter
--- OUTSIDE RECORDS SUMMARY | 2025-04-18 10:34 | XMS_ITS | Encounter Summary ---
Author Organization [facility] Address [address] [place] [address] Phone Care Team Providers Care Clerk Of Works Name Role Phone Elmer Wallace MD Primary Care Provider Hema Castaneda MD Unavailable [phone] Colleen Bain MD Unavailable [phone] Rosette Espinoza MD Unavailable [phone] Jenni Hartley RN Unavailable Unavailable Meenu Jones NP Unavailable [phone] Lopez Pool MD Primary Care Provider [phone] Jacqueline Schaeffer RN Unavailable Unavailable Jenni Hartley RN Unavailable Unavailable Anat Htuchison Unavailable Unavailable Zeynep Pérez RN Unavailable [phone] Encounter Details Date Type Department Care Team (Late st Contact Info) Description 02/15/2018 Orders Only [facility] Provider, MD Lexi [address] [place] [address] Social History Tobacco Use Types Packs/Day Years Used Date Smoking Tobacco: Former Comments Unknown Sex and Gender Information Value Date Recorded Sex Assigned at Not on file 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 Gender Identity Female 07/13/2018 9:28 AM CDT Sexual Orientation Not on file documented as of this encounter Plan of Treatment Upcoming Encounters Date Type Department Care Team (Late st Contact Info) Description 05/03/2025 10:00 AM CDT Hospital Encounter [facility] Endoscopy [address] [place] [address] Sea Ignacio MD [address] [place] [address] 05/03/2025 10:00 AM CDT - 05/03/2025 10:45 AM CDT Surgery [facility] Endoscopy [address] [place], [place] [address] Sea Ignacio MD [address] [place] [address] COLONOSCOPY Scheduled Procedures Name Priority Associated Diagnoses [...] 02/15/2018 Ordered by an unspecified provider. Result [facility] Provider CV CARDIAC SERVICES PROCE DURES Final Result * CARDIOLOGY REPORT (02/15/2018) Anatomical Region Laterality Modality Other Narrative 02/15/2018 Ordered by an unspecified provider. Result [facility] Provider CV CARDIAC SERVICES PROCE DURES Final Result * CARDIOLOGY REPORT (02/15/2018) Anatomical Region Laterality Modality Other Narrative 02/15/2018 Ordered by an unspecified provider. Result [facility] Provider CV CARDIAC SERVICES PROCE DURES Final Result * CARDIOLOGY REPORT (02/15/2018) Anatomical Region Laterality Modality Other Narrative 02/15/2018 Ordered by an unspecified provider. Result [facility] Provider CV CARDIAC SERVICES PROCE DURES Final Result * CARDIOLOGY REPORT (02/15/2018) Anatomical Region Laterality Modality Other Narrative 02/15/2018 Ordered by an unspecified provider. Result [facility] Provider CV CARDIAC SERVICES PROCE DURES Final Result * CARDIOLOGY REPORT (02/15/2018) Anatomical Region Laterality Modality Other Narrative 02/15/2018 Ordered by an unspecified provider. Result [facility] Provider CV CARDIAC SERVICES PROCE DURES Final Result * CARDIOLOGY REPORT (02/15/2018) Anatomical Region Laterality Modality Other Narrative 02/15/2018 Ordered by an unspecified provider. Result [facility] Provider CV CARDIAC SERVICES PROCE DURES Final Result * CARDIOLOGY REPORT (02/15/2018) Anatomical Region Laterality Modality Other Narrative 02/15/2018 Ordered by an unspecified provider. Result [facility] Provider CV CARDIAC SERVICES PROCE DURES Final Result * CARDIOLOGY REPORT (02/15/2018) Anatomical Region Laterality Modality Other Narrative 02/15/2018 Ordered by an unspecified provider. [facility] Provider CV CARDIAC SERVICES PROCE DURES Final Result * CARDIOLOGY REPORT (02/15/2018) Anatomical Region Laterality Modality Other Narrative 02/15/2018 Ordered by an unspecified provider. [facility] Provider CV CARDIAC SERVICES PROCE DURES Final Result * CARDIOLOGY REPORT (02/15/2018) Anatomical Region Laterality Modality Other Narrative 02/15/2018 Ordered by an unspecified provider. [facility] Provider CV CARDIAC SERVICES PROCE DURES Final Result * CARDIOLOGY REPORT (02/15/2018) Anatomical Region Laterality Modality Other Narrative 02/15/2018 Ordered by an unspecified provider. [facility] Provider CV CARDIAC SERVICES PROCE DURES Final Result * CARDIOLOGY REPORT (02/15/2018) Anatomical Region Laterality Modality Other Narrative 02/15/2018 Ordered by an unspecified provider. [facility] Provider CV CARDIAC SERVICES PROCE DURES Final Result * CARDIOLOGY REPORT (02/15/2018) Anatomical Region Laterality Modality Other Narrative 02/15/2018 Ordered by an unspecified provider. [facility] Provider CV CARDIAC SERVICES PROCE DURES Final Result documented in this encounter Visit Diagnoses Not on filedocumented in this encounter Additional Health Concerns Infection Onset Date Last Indicated Resolved Time COVID: Suspected 03/13/2022 03/13/2022 03/13/2022 6:26 PM CDT documented as of this encounter Care Teams Clerk Of Works Relationship Specialty Start Date End Date Elmer Wallace MD PCP - General 02/09/17 03/17/22 Lopez Pool MD PCP - General Family Medicine 03/18/22 Hema Castaneda MD Consulting Physician Cardiology 01/11/19 Colleen Bain MD Referring Physician Endocrinology Diabetes & Metabolism 04/07/19 Rosette Espionza MD Referring Physician Cardiology 04/07/19 Jenni Hartley, RN Registered Nurse Cardiology 04/02/21 04/22/21 Meenu Jones NP Emt Intermediate Cardiology 04/02/21 04/22/21 Jacqueline Schaeffer, caustic preparer Failure Coordinator Cardiology 07/13/24 Jenni Hartley, RN Registered Nurse 07/13/24 08/01/24 Anat Hutchison 07/13/24 Zeynep Pérez, MIRI [address] [facility] [address] [place] [address] [facility] Outpatient Watershed Tender 02/03/25 03/02/25 documented as of this encounter
--- OUTSIDE RECORDS SUMMARY | 2025-04-18 10:34 | XMS_ITS | Encounter Summary ---
Author Organization [facility] [employer] [facility] Address [address] [place] [address] Phone Care Team Providers Care Electroplater Apprentice Name Role Phone Elmer Wallace MD Primary Care Provider [phone] Hema Castaneda MD Unavailable [phone] Colleen Bain MD Unavailable [phone] Rosette Espinoza MD Unavailable [phone] Jenni Hartley RN Unavailable Unavailable Meenu Jones NP Unavailable [phone] Lopez Pool MD Primary Care Provider [phone] Jacqueline Schaeffer RN Unavailable Unavailable Jenni Hartley RN Unavailable Unavailable Anat Hutchison Unavailable Unavailable Zeynep Pérez RN Unavailable [phone] Encounter Details Date Type Department Care Team (Late st Contact Info) Description 12/24/2017 Orders Only [facility] Provider, MD Lexi [address] [place] [address] Social History Tobacco Use Types Packs/Day Years Used Date Smoking Tobacco: Former Comments Unknown Sex and Gender Information Value Date Recorded Sex Assigned at Not on file 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 Gender Identity Female 07/13/2018 9:28 AM CDT Sexual Orientation Not on file documented as of this encounter Plan of Treatment Upcoming Encounters Date Type Department Care Team (Late st Contact Info) Description 05/03/2025 10:00 AM CDT Hospital Encounter [facility] Endoscopy [address] [place] [address] Sea Ignacio MD [address] [place] [address] 05/03/2025 10:00 AM CDT - 05/03/2025 10:45 AM CDT Surgery [facility] Endoscopy [address] [place], [place] [address] Sea Ignacio MD [address] [place] [address] COLONOSCOPY Scheduled Procedures Name Priority Associated Diagnoses [...] 12/24/2017 Ordered by an unspecified provider. Result [facility] Provider CV CARDIAC SERVICES PROCE DURES Final Result * CARDIOLOGY REPORT (12/24/2017) Anatomical Region Laterality Modality Other Narrative 12/24/2017 Ordered by an unspecified provider. Result [facility] Provider CV CARDIAC SERVICES PROCE DURES Final Result * CARDIOLOGY REPORT (12/24/2017) Anatomical Region Laterality Modality Other Narrative 12/24/2017 Ordered by an unspecified provider. Result [facility] Provider CV CARDIAC SERVICES PROCE DURES Final Result * CARDIOLOGY REPORT (12/24/2017) Anatomical Region Laterality Modality Other Narrative 12/24/2017 Ordered by an unspecified provider. Result [facility] Provider CV CARDIAC SERVICES PROCE DURES Final Result * CARDIOLOGY REPORT (12/24/2017) Anatomical Region Laterality Modality Other Narrative 12/24/2017 Ordered by an unspecified provider. Result [facility] Provider CV CARDIAC SERVICES PROCE DURES Final Result * CARDIOLOGY REPORT (12/24/2017) Anatomical Region Laterality Modality Other Narrative 12/24/2017 Ordered by an unspecified provider. Result [facility] Provider CV CARDIAC SERVICES PROCE DURES Final Result * CARDIOLOGY REPORT (12/24/2017) Anatomical Region Laterality Modality Other Narrative 12/24/2017 Ordered by an unspecified provider. Result [facility] Provider CV CARDIAC SERVICES PROCE DURES Final Result * CARDIOLOGY REPORT (12/24/2017) Anatomical Region Laterality Modality Other Narrative 12/24/2017 Ordered by an unspecified provider. Result [facility] Provider CV CARDIAC SERVICES PROCE DURES Final Result * CARDIOLOGY REPORT (12/24/2017) Anatomical Region Laterality Modality Other Narrative 12/24/2017 Ordered by an unspecified provider. Historical Provider CV CARDIAC SERVICES PROCE DURES Final Result * CARDIOLOGY REPORT (12/24/2017) Anatomical Region Laterality Modality Other Narrative 12/24/2017 Ordered by an unspecified provider. [facility] Provider CV CARDIAC SERVICES PROCE DURES Final Result * CARDIOLOGY REPORT (12/24/2017) Anatomical Region Laterality Modality Other Narrative 12/24/2017 Ordered by an unspecified provider. [facility] Provider CV CARDIAC SERVICES PROCE DURES Final Result * CARDIOLOGY REPORT (12/24/2017) Anatomical Region Laterality Modality Other Narrative 12/24/2017 Ordered by an unspecified provider. [facility] Provider CV CARDIAC SERVICES PROCE DURES Final Result * CARDIOLOGY REPORT (12/24/2017) Anatomical Region Laterality Modality Other Narrative 12/24/2017 Ordered by an unspecified provider. [facility] Provider CV CARDIAC SERVICES PROCE DURES Final Result * CARDIOLOGY REPORT (12/24/2017) Anatomical Region Laterality Modality Other Narrative 12/24/2017 Ordered by an unspecified provider. [facility] Provider CV CARDIAC SERVICES PROCE DURES Final Result documented in this encounter Visit Diagnoses Not on filedocumented in this encounter Additional Health Concerns Infection Onset Date Last Indicated Resolved Time COVID: Suspected 03/13/2022 03/13/2022 03/13/2022 6:26 PM CDT documented as of this encounter Care Teams Electroplater Apprentice Relationship Specialty Start Date End Date Elmer Wallace MD PCP - General 02/09/17 03/17/22 Lopez Pool MD PCP - General Family Medicine 03/18/22 Hema Castaneda MD Consulting Physician Cardiology 01/11/19 Colleen Bain MD Referring Physician Endocrinology Diabetes & Metabolism 04/07/19 Rosette Espinoza MD Referring Physician Cardiology 04/07/19 Jenni Hartley, RN Registered Nurse Cardiology 04/02/21 04/22/21 Meenu Jones NP Environmental Compliance Specialist Cardiology 04/02/21 04/22/21 Jacqueline Schaeffer, music manager Failure Coordinator Cardiology 07/13/24 Jenni Hartley, RN Registered Nurse 07/13/24 08/01/24 Anat Hutchison 07/13/24 Zeynep Pérez, MIRI [address] [facility] [address] [place] [address] [facility] Outpatient Speaker Mounter 02/03/25 03/02/25 documented as of this encounter
--- OUTSIDE RECORDS SUMMARY | 2025-04-18 10:34 | XMS_ITS | Encounter Summary ---
Author Organization [facility] [employer] [facility] Address [address] [place] [address] Phone Care Team Providers Care Joinery Patternmaker Name Role Phone Elmer Wallace MD Primary Care Provider Hema Castaneda MD Unavailable [phone] Colleen Bain MD Unavailable [phone] Rosette Espinoza MD Unavailable [phone] Jenni Hartley RN Unavailable Unavailable Meenu Jones NP Unavailable [phone] Lopez Pool MD Primary Care Provider [phone] Jacqueline Schaeffer RN Unavailable Unavailable Jenni Hartley RN Unavailable Unavailable Anat Hutchison Unavailable Unavailable Zeynep Pérez RN Unavailable [phone] Encounter Details Date Type Department Care Team (Late st Contact Info) Description 01/07/2018 Orders Only [facility]INCON[facility] Provider, MD Lexi [address] [place] [address] Social History Tobacco Use Types Packs/Day Years Used Date Smoking Tobacco: Former Comments Unknown Sex and Gender Information Value Date Recorded Sex Assigned at Not on file 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 Gender Identity Female 07/13/2018 9:28 AM CDT Sexual Orientation Not on file documented as of this encounter Plan of Treatment Upcoming Encounters Date Type Department Care Team (Late st Contact Info) Description 05/03/2025 10:00 AM CDT Hospital Encounter [facility] Endoscopy [address] [place] [address] Sea Ignacio MD [address] [place] [address] 05/03/2025 10:00 AM CDT - 05/03/2025 10:45 AM CDT Surgery [facility] Endoscopy [address] [place], [place] [address] Sea Ignacio MD [address] [place] [address] COLONOSCOPY Scheduled Procedures Name Priority Associated Diagnoses [...] Narrative 01/07/2018 Ordered by an unspecified provider. [facility] Provider CV CARDIAC SERVICES PROCE DURES Final Result * CARDIOLOGY REPORT (01/07/2018) Anatomical Region Laterality Modality Other Narrative 01/07/2018 Ordered by an unspecified provider. [facility] Provider CV CARDIAC SERVICES PROCE DURES Final Result documented in this encounter Visit Diagnoses Not on filedocumented in this encounter Additional Health Concerns Infection Onset Date Last Indicated Resolved Time COVID: Suspected 03/13/2022 03/13/2022 03/13/2022 6:26 PM CDT documented as of this encounter Care Teams Joinery Patternmaker Relationship Specialty Start Date End Date Elmer Wallace MD PCP - General 02/09/17 03/17/22 Lopez Pool MD PCP - General Family Medicine 03/18/22 Hema Castaneda MD Consulting Physician Cardiology 01/11/19 Colleen Bain MD Referring Physician Endocrinology Diabetes & Metabolism 04/07/19 Rosette Espinoza MD Referring Physician Cardiology 04/07/19 Jenni Hartley, RN Registered Nurse Cardiology 04/02/21 04/22/21 Meenu Jones NP [employer] Art Teacher Cardiology 04/02/21 04/22/21 Jacqueline Schaeffer, vp business development Failure Coordinator Cardiology 07/13/24 Jenni Hartley, RN Registered Nurse 07/13/24 08/01/24 Anat Hutchison 07/13/24 Zeynep Pérez, RN [address] [address] [facility] Outpatient Supervisor Special Services 02/03/25 03/02/25 documented as of this encounter
--- OUTSIDE RECORDS SUMMARY | 2025-04-18 10:34 | XMS_ITS | Encounter Summary ---
Author Organization [facility] [employer] [facility] Address [address] [place] [address] Phone Care Team Providers Care Pressurization Mechanic Name Role Phone Elmer Wallace MD Primary Care Provider [phone] Hema Castaneda MD Unavailable [phone] Colleen Bain MD Unavailable [phone] Rosette Espinoza MD Unavailable [phone] Jenni Hartley RN Unavailable Unavailable Meenu Jones NP Unavailable [phone] Lopez Pool MD Primary Care Provider [phone] Jacqueline Schaeffer RN Unavailable Unavailable Jenni Hartley RN Unavailable Unavailable Anat Hutchison Unavailable Unavailable Zeynep Pérez RN Unavailable [phone] Encounter Details Date Type Department Care Team (Late st Contact Info) Description 02/17/2018 Orders Only [facility] Provider, MD Lexi [address] [place] [address] Social History Tobacco Use Types Packs/Day Years Used Date Smoking Tobacco: Former Comments Unknown Sex and Gender Information Value Date Recorded Sex Assigned at Not on file 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 Gender Identity Female 07/13/2018 9:28 AM CDT Sexual Orientation Not on file documented as of this encounter Plan of Treatment Upcoming Encounters Date Type Department Care Team (Late st Contact Info) Description 05/03/2025 10:00 AM CDT Hospital Encounter [facility] Endoscopy [address] [place] [address] Sea Ignacio MD [address] [place] [address] 05/03/2025 10:00 AM CDT - 05/03/2025 10:45 AM CDT Surgery [facility] Endoscopy [address] [place], [place] [address] Sea Ignacio MD [address] [place] [address] COLONOSCOPY Scheduled Procedures Name Priority Associated Diagnoses [...] Narrative 02/17/2018 Ordered by an unspecified provider. [facility] Provider CV CARDIAC SERVICES PROCE DURES Final Result * CARDIOLOGY REPORT (02/17/2018) Anatomical Region Laterality Modality Other Narrative 02/17/2018 Ordered by an unspecified provider. [facility] Provider CV CARDIAC SERVICES PROCE DURES Final Result documented in this encounter Visit Diagnoses Not on filedocumented in this encounter Additional Health Concerns Infection Onset Date Last Indicated Resolved Time COVID: Suspected 03/13/2022 03/13/2022 03/13/2022 6:26 PM CDT documented as of this encounter Care Teams Pressurization Mechanic Relationship Specialty Start Date End Date Elmer Wallace MD PCP - General 02/09/17 03/17/22 Lopez Pool MD PCP - General Family Medicine 03/18/22 Hema Castaneda MD Consulting Physician Cardiology 01/11/19 Colleen Bain MD Referring Physician Endocrinology Diabetes & Metabolism 04/07/19 Rosette Espinoza MD Referring Physician Cardiology 04/07/19 Jenni Hartley, RN Registered Nurse Cardiology 04/02/21 04/22/21 Meenu Jones NP Senior Games Technician Cardiology 04/02/21 04/22/21 Jacqueline Schaeffer, career placement services counselor Failure Coordinator Cardiology 07/13/24 Jenni Hartley, RN Registered Nurse 07/13/24 08/01/24 Anat Hutchison 07/13/24 Zeynep Pérez, RN [address] [address] [facility] Out[facility] Hot Die Press Feeder 02/03/25 03/02/25 documented as of this encounter
--- OUTSIDE RECORDS SUMMARY | 2025-04-18 10:34 | XMS_ITS | Encounter Summary ---
Author Organization [facility] [employer] [facility] Address [address] [place] [address] Phone Care Team Providers Care Roller Helper Name Role Phone Elmer Wallace MD Primary Care Provider Hema Castaneda MD Unavailable [phone] Colleen Bain MD Unavailable [phone] Rosette Espinoza MD Unavailable [phone] Jenni Hartley RN Unavailable Unavailable Meenu Jones NP Unavailable [phone] Lopez Pool MD Primary Care Provider [phone] Jacqueline Schaeffer RN Unavailable Unavailable Jenni Hartley RN Unavailable Unavailable Anat Hutchison Unavailable Unavailable Zeynep Pérez RN Unavailable [phone] Encounter Details Date Type Department Care Team (Late st Contact Info) Description 11/29/2017 Orders Only [facility] Provider, MD Lexi [address] [place] [address] Social History Tobacco Use Types Packs/Day Years Used Date Smoking Tobacco: Former Comments Unknown Sex and Gender Information Value Date Recorded Sex Assigned at Not on file Legal 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 Female 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 WARE FINISHER Gender Identity Female 07/13/2018 9:28 AM CDT Sexual Orientation Not on file documented as of this encounter Plan of Treatment Upcoming Encounters Date Type Department Care Team (Late st Contact Info) Description 05/03/2025 10:00 AM CDT Hospital Encounter [facility] Endoscopy [address] [place] [address] Sea Ignacio MD [address] [place] [address] 05/03/2025 10:00 AM CDT - 05/03/2025 10:45 AM CDT Surgery [facility] Endoscopy [address] [place], [place] [address] Sea Ignacio MD [address] [place] [address] COLONOSCOPY Scheduled Procedures Name Priority Associated Diagnoses [...] 11/29/2017 Ordered by an unspecified provider. Result [facility] Provider CV CARDIAC SERVICES PROCE DURES Final Result * CARDIOLOGY REPORT (11/29/2017) Anatomical Region Laterality Modality Other Narrative 11/29/2017 Ordered by an unspecified provider. Result [facility] Provider CV CARDIAC SERVICES PROCE DURES Final Result * CARDIOLOGY REPORT (11/29/2017) Anatomical Region Laterality Modality Other Narrative 11/29/2017 Ordered by an unspecified provider. Result [facility] Provider CV CARDIAC SERVICES PROCE DURES Final Result * CARDIOLOGY REPORT (11/29/2017) Anatomical Region Laterality Modality Other Narrative 11/29/2017 Ordered by an unspecified provider. Result [facility] Provider CV CARDIAC SERVICES PROCE DURES Final Result * CARDIOLOGY REPORT (11/29/2017) Anatomical Region Laterality Modality Other Narrative 11/29/2017 Ordered by an unspecified provider. Result [facility] Provider CV CARDIAC SERVICES PROCE DURES Final Result * CARDIOLOGY REPORT (11/29/2017) Anatomical Region Laterality Modality Other Narrative 11/29/2017 Ordered by an unspecified provider. Result [facility] Provider CV CARDIAC SERVICES PROCE DURES Final Result * CARDIOLOGY REPORT (11/29/2017) Anatomical Region Laterality Modality Other Narrative 11/29/2017 Ordered by an unspecified provider. [facility] Provider CV CARDIAC SERVICES PROCE DURES Final Result * CARDIOLOGY REPORT (11/29/2017) Anatomical Region Laterality Modality Other Narrative 11/29/2017 Ordered by an unspecified provider. Result [facility] Provider CV CARDIAC SERVICES PROCE DURES Final Result * CARDIOLOGY REPORT (11/29/2017) Anatomical Region Laterality Modality Other Narrative 11/29/2017 Ordered by an unspecified provider. Historical Provider CV CARDIAC SERVICES PROCE DURES Final Result * CARDIOLOGY REPORT (11/29/2017) Anatomical Region Laterality Modality Other Narrative 11/29/2017 Ordered by an unspecified provider. [facility] Provider CV CARDIAC SERVICES PROCE DURES Final Result * CARDIOLOGY REPORT (11/29/2017) Anatomical Region Laterality Modality Other Narrative 11/29/2017 Ordered by an unspecified provider. [facility] Provider CV CARDIAC SERVICES PROCE DURES Final Result * CARDIOLOGY REPORT (11/29/2017) Anatomical Region Laterality Modality Other Narrative 11/29/2017 Ordered by an unspecified provider. [facility] Provider CV CARDIAC SERVICES PROCE DURES Final Result * CARDIOLOGY REPORT (11/29/2017) Anatomical Region Laterality Modality Other Narrative 11/29/2017 Ordered by an unspecified provider. [facility] Provider CV CARDIAC SERVICES PROCE DURES Final Result * CARDIOLOGY REPORT (11/29/2017) Anatomical Region Laterality Modality Other Narrative 11/29/2017 Ordered by an unspecified provider. [facility] Provider CV CARDIAC SERVICES PROCE DURES Final Result documented in this encounter Visit Diagnoses Not on filedocumented in this encounter Additional Health Concerns Infection Onset Date Last Indicated Resolved Time COVID: Suspected 03/13/2022 03/13/2022 03/13/2022 6:26 PM CDT documented as of this encounter Care Teams Roller Helper Relationship Specialty Start Date End Date Elmer Wallace MD PCP - General 02/09/17 03/17/22 Lopez Pool MD PCP - General Family Medicine 03/18/22 Hema Castaneda MD Consulting Physician Cardiology 01/11/19 Colleen Bain MD Referring Physician Endocrinology Diabetes & Metabolism 04/07/19 Rosette Espinoza MD Referring Physician Cardiology 04/07/19 Jenni Hartley, RN Registered Nurse Cardiology 04/02/21 04/22/21 Meenu Jones NP Administrative Executive Cardiology 04/02/21 04/22/21 Jacqueline Schaeffer, label coder Failure Coordinator Cardiology 07/13/24 Jenni Hartley, RN Registered Nurse 07/13/24 08/01/24 Anat Hutchison 07/13/24 Zeynep Pérez, MIRI [address] [facility] [address] [place] [address] [facility] Outpatient Value Analysis Coordinator 02/03/25 03/02/25 documented as of this encounter
--- OUTSIDE RECORDS SUMMARY | 2025-04-18 10:34 | XMS_ITS | Encounter Summary ---
Author Organization [facility] [employer] [facility] Address [address] [place] [address] Phone Care Team Providers Care Clam Bed Worker Name Role Phone Elmer Wallace MD Primary Care Provider Hema Castaneda MD Unavailable [phone] Colleen Bain MD Unavailable [phone] Rosette Espinoza MD Unavailable [phone] Jenni Hartley RN Unavailable Unavailable Meenu Jones NP Unavailable [phone] Lopez Pool MD Primary Care Provider [phone] Jacqueline Schaeffer RN Unavailable Unavailable Jenni Hartley RN Unavailable Unavailable Anat Hutchison Unavailable Unavailable Zeynep Pérez RN Unavailable [phone] Encounter Details Date Type Department Care Team (Late st Contact Info) Description 11/06/2017 Orders Only [facility] Provider, MD Lexi [address] [place] [address] Social History Tobacco Use Types Packs/Day Years Used Date Smoking Tobacco: Never Assessed Comments Unknown Sex and Gender Information Value Date Recorded Sex Assigned at Not on file 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 Gender Identity Female 07/13/2018 9:28 AM CDT Sexual Orientation Not on file documented as of this encounter Plan of Treatment Upcoming Encounters Date Type Department Care Team (Late st Contact Info) Description 05/03/2025 10:00 AM CDT Hospital Encounter [facility] Endoscopy [address] [place] [address] Sea Ignacio MD [address] [place] [address] 05/03/2025 10:00 AM CDT - 05/03/2025 10:45 AM CDT Surgery [facility] Endoscopy [address] [place], [place] [address] Sea Ignacio MD [address] [place] [address] COLONOSCOPY Scheduled Procedures Name Priority Associated Diagnoses [...] provider. Historical Provider CV CARDIAC SERVICES PROCE SWETHA Final Result * CARDIOLOGY REPORT (11/06/2017) Anatomical Region Laterality Modality Other Narrative 11/06/2017 Ordered by an unspecified provider. [facility] Historical Provider CV CARDIAC SERVICES PROCE DURES Final Result * CARDIOLOGY REPORT (11/06/2017) Anatomical Region Laterality Modality Other Narrative 11/06/2017 Ordered by an unspecified provider. [facility] Provider CV CARDIAC SERVICES PROCE DURES Final Result * CARDIOLOGY REPORT (11/06/2017) Anatomical Region Laterality Modality Other Narrative 11/06/2017 Ordered by an unspecified provider. [facility] Provider CV CARDIAC SERVICES PROCE DURES Final Result * CARDIOLOGY REPORT (11/06/2017) Anatomical Region Laterality Modality Other Narrative 11/06/2017 Ordered by an unspecified provider. [facility] Provider CV CARDIAC SERVICES PROCE DURES Final Result * CARDIOLOGY REPORT (11/06/2017) Anatomical Region Laterality Modality Other Narrative 11/06/2017 Ordered by an unspecified provider. [facility] Provider CV CARDIAC SERVICES PROCE DURES Final Result * CARDIOLOGY REPORT (11/06/2017) Anatomical Region Laterality Modality Other Narrative 11/06/2017 Ordered by an unspecified provider. [facility] Provider CV CARDIAC SERVICES PROCE DURES Final Result documented in this encounter Visit Diagnoses Not on filedocumented in this encounter Additional Health Concerns Infection Onset Date Last Indicated Resolved Time COVID: Suspected 03/13/2022 03/13/2022 03/13/2022 6:26 PM CDT documented as of this encounter Care Teams Clam Bed Worker Relationship Specialty Start Date End Date Elmer Wallace MD PCP - General 02/09/17 03/17/22 Lopez Pool MD PCP - General Family Medicine 03/18/22 Hema Castaneda MD Consulting Physician Cardiology 01/11/19 Colleen Bain MD Referring Physician Endocrinology Diabetes & Metabolism 04/07/19 Rosette Espinoza MD Referring Physician Cardiology 04/07/19 Jenni Hartley, RN Registered Nurse Cardiology 04/02/21 04/22/21 Meenu Jones NP Gyro Compass Tester Cardiology 04/02/21 04/22/21 Jacqueline Schaeffer, shell mold bonder Failure Coordinator Cardiology 07/13/24 Jenni Hartley, RN Registered Nurse 07/13/24 08/01/24 Anat Hutchison 07/13/24 Zeynep Pérez, RN 45[address] [facility] [address] [place] [address] [facility] Outpatient Social Work Job Titles 02/03/25 03/02/25 documented as of this encounter
--- OUTSIDE RECORDS SUMMARY | 2025-04-18 10:34 | XMS_ITS | Encounter Summary ---
Author Organization [facility] [employer] [facility] Address [address] [place] [address] Phone Care Team Providers Care Nuclear Chemistry Technician Name Role Phone Elmer Wallace MD Primary Care Provider Hema Castaneda MD Unavailable [phone] Colleen Bain MD Unavailable [phone] Rosette Espinoza MD Unavailable [phone] Jenni Hartley RN Unavailable Unavailable Meenu Jones NP Unavailable [phone] Lopez Pool MD Primary Care Provider [phone] Jacqueline Schaeffer RN Unavailable Unavailable Jenni Hartley RN Unavailable Unavailable Anat Hutchison Unavailable Unavailable Zeynep Pérez RN Unavailable [phone] Encounter Details Date Type Department Care Team (Late st Contact Info) Description 12/28/2017 Orders Only [facility] Provider, MD Lexi [address] [place] [address] Social History Tobacco Use Types Packs/Day Years Used Date Smoking Tobacco: Former Comments Unknown Sex and Gender Information Value Date Recorded Sex Assigned at Not on file Legal Sex Female 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 Gender Identity Female 07/13/2018 9:28 AM CDT Sexual Orientation Not on file documented as of this encounter Plan of Treatment Upcoming Encounters Date Type Department Care Team (Late st Contact Info) Description 05/03/2025 10:00 AM CDT Hospital Encounter [facility] Endoscopy [address] [place] [address] Sea Ignacio MD [address] [place] [address] 05/03/2025 10:00 AM CDT - 05/03/2025 10:45 AM CDT Surgery [facility] Endoscopy [address] [place], [place] [address] Sea Ignacio MD [address] [place] [address] COLONOSCOPY Scheduled Procedures Name Priority Associated Diagnoses [...] Narrative 12/28/2017 Ordered by an unspecified provider. [facility] Provider CV CARDIAC SERVICES PROCE DURES Final Result * CARDIOLOGY REPORT (12/28/2017) Anatomical Region Laterality Modality Other Narrative 12/28/2017 Ordered by an unspecified provider. [facility] Provider CV CARDIAC SERVICES PROCE DURES Final Result documented in this encounter Visit Diagnoses Not on filedocumented in this encounter Additional Health Concerns Infection Onset Date Last Indicated Resolved Time COVID: Suspected 03/13/2022 03/13/2022 03/13/2022 6:26 PM CDT documented as of this encounter Care Teams Nuclear Chemistry Technician Relationship Specialty Start Date End Date Elmer Wallace MD PCP - General 02/09/17 03/17/22 Lopez Pool MD PCP - General Family Medicine 03/18/22 Hema Castaneda MD Consulting Physician Cardiology 01/11/19 Colleen Bain MD Referring Physician Endocrinology Diabetes & Metabolism 04/07/19 Rosette Espinoza MD Referring Physician Cardiology 04/07/19 Jenni Hartley, RN Registered Nurse Cardiology 04/02/21 04/22/21 Meenu Jones NP Vocational Rehabilitation Teacher Cardiology 04/02/21 04/22/21 Jacqueline Schaeffer, mill helper Failure Coordinator Cardiology 07/13/24 Jenni aHrtley, RN Registered Nurse 07/13/24 08/01/24 Anat Hutchison 07/13/24 Zeynep Pérez, RN [address] [address] [facility] Care Team Assistant 02/03/25 03/02/25 documented as of this encounter
--- OUTSIDE RECORDS SUMMARY | 2025-04-18 10:34 | XMS_ITS | Encounter Summary ---
Author Organization [facility] Address [address] [place] [address] Care Team Providers Care Funeral Prearrangement Counselor Name Role Phone Hema Castaneda MD Unavailable [phone] Colleen Bain MD Unavailable [phone] Rosette Espinoza MD Unavailable [phone] Lopez Pool MD Primary Care Provider [phone] Jacqueline Schaeffer RN Unavailable Unavailable Jenni Hartley RN Unavailable Unavailable Anat Hutchison Unavailable Unavailable Zeynep Pérez RN Unavailable [phone] Encounter Details Date Type Department Care Team (Late st Contact Info) Description 07/01/2022 Telephone [facility] Transplant Heart [address] [address] Mailstop [phone] [place] [address] Jennifer Acuna Social History Tobacco Use Types [...] you attend chur ch or scientologist services? Never 03/14/2022 Do you belong to any clubs o r organizations such as mormon groups, unions, fraternal or athletic groups, or [...] place to sleep or slept in a halfway (including now)? 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 Not on file Not on file Not on file documented as of this encounter Plan of Treatment Upcoming Encounters Date Type Department Care Team (Late st Contact Info) Description 05/03/2025 10:00 AM CDT Hospital Encounter [facility] Endoscopy [address] [place] [address] Sea Ignacio MD [address] [place] [address] 05/03/2025 10:00 AM CDT - 05/03/2025 10:45 AM CDT Surgery [facility] Endoscopy [address] [place] [address] Sea Ignacio MD [address] [place] [address] COLONOSCOPY Scheduled Procedures Name Priority Associated Diagnoses Date/Ti me COLONOSCOPY Iron deficiency anemia, unspecified iron deficiency anemia type Abnormal colonoscopy 05/03/2025 10:00 AM CDT documented as of this encounter Visit Diagnoses Not on filedocumented in this encounter Care Teams Funeral Prearrangement Counselor Relationship Specialty Start Date End Date Lopez Pool MD PCP - General Family Medicine 03/18/22 Hema Castaneda MD Consulting Physician Cardiology 01/11/19 Colleen Bain MD Referring Physician Endocrinology Diabetes & Metabolism 04/07/19 Rosette Espinoza MD Referring Physician Cardiology 04/07/19 Jacqueline Schaeffer, biologist aide Failure Coordinator Cardiology 07/13/24 Jenni Hartley, RN Registered Nurse 07/13/24 08/01/24 Anat Hutchison 07/13/24 Zeynep Pérez, RN [address] [address] [facility] Outpatient Insurance Verification Representative 02/03/25 03/02/25 documented as of this encounter
--- OUTSIDE RECORDS SUMMARY | 2025-04-18 10:34 | XMS_ITS | Encounter Summary ---
Author Organization [facility] Address [address] [place] [address] Phone Care Team Providers Care Gas Leak Inspector Helper Name Role Phone Elmer Wallace MD Primary Care Provider Hema Castaneda MD Unavailable [phone] Colleen Bain MD Unavailable [phone] Rosette Espinoza MD Unavailable [phone] Jenni Hartley RN Unavailable Unavailable Meenu Jones NP Unavailable [phone] Lopez Pool MD Primary Care Provider [phone] Jacqueline Schaeffer RN Unavailable Unavailable Jenni Hartley RN Unavailable Unavailable Anat Hutchison Unavailable Unavailable Zeynep Pérez RN Unavailable [phone] Encounter Details Date Type Department Care Team (Late st Contact Info) Description 02/25/2018 Orders Only [facility]INCON[facility] Provider, MD Lexi [address] [place] [address] Social History Tobacco Use Types Packs/Day Years Used Date Smoking Tobacco: Former Comments Unknown Sex and Gender Information Value Date Recorded Sex Assigned at Not on file Legal Sex Female 3: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 MULE DEVELOPER Gender Identity Female 07/13/2018 9:28 AM CDT Sexual Orientation Not on file documented as of this encounter Plan of Treatment Upcoming Encounters Date Type Department Care Team (Late st Contact Info) Description 05/03/2025 10:00 AM CDT Hospital Encounter [facility] Endoscopy [address] [place] [address] Sea Ignacio MD [address] [place] [address] 05/03/2025 10:00 AM CDT - 05/03/2025 10:45 AM CDT Surgery [facility] Endoscopy [address] [place], [place] [address] Sea Ignacio MD [address] [place] [address] COLONOSCOPY Scheduled Procedures Name Priority Associated Diagnoses [...] RUPA POSADA Final Result * CARDIOLOGY REPORT (02/25/2018) Anatomical Region Laterality Modality Other Narrative 02/25/2018 Ordered by an unspecified provider. [facility] [place] [facility] CARDIAC SERVICES PROCE DURES Final Result * CARDIOLOGY REPORT (02/25/2018) Anatomical Region Laterality Modality Other Narrative 02/25/2018 Ordered by an unspecified provider. Result [facility] Provider CV CARDIAC SERVICES PROCE DURES Final Result * CARDIOLOGY REPORT (02/25/2018) Anatomical Region Laterality Modality Other Narrative 02/25/2018 Ordered by an unspecified provider. Result [facility] Provider CV CARDIAC SERVICES PROCE DURES Final Result * CARDIOLOGY REPORT (02/25/2018) Anatomical Region Laterality Modality Other Narrative 02/25/2018 Ordered by an unspecified provider. Result [facility] Provider CV CARDIAC SERVICES PROCE DURES Final Result * CARDIOLOGY REPORT (02/25/2018) Anatomical Region Laterality Modality Other Narrative 02/25/2018 Ordered by an unspecified provider. Result [facility] Provider CV CARDIAC SERVICES PROCE DURES Final Result * CARDIOLOGY REPORT (02/25/2018) Anatomical Region Laterality Modality Other Narrative 02/25/2018 Ordered by an unspecified provider. Result [facility] Provider CV CARDIAC SERVICES PROCE DURES Final Result * CARDIOLOGY REPORT (02/25/2018) Anatomical Region Laterality Modality Other Narrative 02/25/2018 Ordered by an unspecified provider. Result [facility] Provider CV CARDIAC SERVICES PROCE DURES Final Result documented in this encounter Visit Diagnoses Not on filedocumented in this encounter Additional Health Concerns Infection Onset Date Last Indicated Resolved Time COVID: Suspected 03/13/2022 03/13/2022 03/13/2022 6:26 PM CDT documented as of this encounter Care Teams Gas Leak Inspector Helper Relationship Specialty Start Date End Date lEmer Wallace MD PCP - General 02/09/17 03/17/22 Lopez Pool MD PCP - General Family Medicine 03/18/22 Hema Castaneda MD Consulting Physician Cardiology 01/11/19 Colleen Bain MD Referring Physician Endocrinology Diabetes & Metabolism 04/07/19 Rosette Espinoza MD Referring Physician Cardiology 04/07/19 Jenni Hart[place], RN Registered Nurse Cardiology 04/02/21 04/22/21 Meenu Jones NP Ore Crushing Dust Collector Cardiology 04/02/21 04/22/21 Jacqueline Schaeffer, ciaio lumite injector Failure Coordinator Cardiology 07/13/24 Jenni [place], RN Registered Nurse 07/13/24 08/01/24 Anat Hutchison 07/13/24 Zeynep Pérez, MIRI [address] [facility] [address] [place] [address] SHOP Outpatient Manager Talent Management 02/03/25 03/02/25 documented as of this encounter
--- OUTSIDE RECORDS SUMMARY | 2025-04-18 10:34 | XMS_ITS | Encounter Summary ---
Author Organization [facility] Address [address] [place] [address] Phone Care Team Providers Care Clipman Name Role Phone Elmer Wallace MD Primary Care Provider Hema Castaneda MD Unavailable [phone] Colleen Bain MD Unavailable [phone] Rosette Espinoza MD Unavailable [phone] Jenni Hartley RN Unavailable Unavailable Meenu Jones NP Unavailable [phone] Lopez Pool MD Primary Care Provider [phone] Jacqueline Schaeffer RN Unavailable Unavailable Jenni Hartley RN Unavailable Unavailable Anat Hutchison Unavailable Unavailable Zeynep Pérez RN Unavailable [phone] Encounter Details Date Type Department Care Team (Late st Contact Info) Description 01/18/2018 Orders Only [facility]INCONV Provider, MD Lexi [address] [place] [address] Social History Tobacco Use Types Packs/Day Years Used Date Smoking Tobacco: Former Comments Unknown Sex and Gender Information Value Date Recorded Sex Assigned at Not on file Legal 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 Female 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 Gender Identity Female 07/13/2018 9:28 AM CDT Sexual Orientation Not on file documented as of this encounter Plan of Treatment Upcoming Encounters Date Type Department Care Team (Late st Contact Info) Description 05/03/2025 10:00 AM CDT Hospital Encounter [facility] Endoscopy [address] [place] [address] Sea Ignacio MD [address] [place] [address] 05/03/2025 10:00 AM CDT - 05/03/2025 10:45 AM CDT Surgery [facility] Endoscopy [address] [place], [place] [address] Sea Ignacio MD [address] [place] [address] COLONOSCOPY Scheduled Procedures Name Priority Associated Diagnoses [...] Narrative 01/18/2018 Ordered by an unspecified provider. us Historical Provider CV CARDIAC SERVICES PROCE DURES Final Result * CARDIOLOGY REPORT (01/18/2018) Anatomical Region Laterality Modality Other Narrative 01/18/2018 Ordered by an unspecified provider. Result [facility] Provider CV CARDIAC SERVICES PROCE DURES Final Result * CARDIOLOGY REPORT (01/18/2018) Anatomical Region Laterality Modality Other Narrative 01/18/2018 Ordered by an unspecified provider. Result [facility] Provider CV CARDIAC SERVICES PROCE DURES Final Result * CARDIOLOGY REPORT (01/18/2018) Anatomical Region Laterality Modality Other Narrative 01/18/2018 Ordered by an unspecified provider. Result [facility] Provider CV CARDIAC SERVICES PROCE DURES Final Result * CARDIOLOGY REPORT (01/18/2018) Anatomical Region Laterality Modality Other Narrative 01/18/2018 Ordered by an unspecified provider. Result [facility] Provider CV CARDIAC SERVICES PROCE DURES Final Result * CARDIOLOGY REPORT (01/18/2018) Anatomical Region Laterality Modality Other Narrative 01/18/2018 Ordered by an unspecified provider. Result [facility] Provider CV CARDIAC SERVICES PROCE DURES Final Result * CARDIOLOGY REPORT (01/18/2018) Anatomical Region Laterality Modality Other Narrative 01/18/2018 Ordered by an unspecified provider. Result [facility] Provider CV CARDIAC SERVICES PROCE DURES Final Result * CARDIOLOGY REPORT (01/18/2018) Anatomical Region Laterality Modality Other Narrative 01/18/2018 Ordered by an unspecified provider. Result [facility] Provider CV CARDIAC SERVICES PROCE DURES Final Result * CARDIOLOGY REPORT (01/18/2018) Anatomical Region Laterality Modality Other Narrative 01/18/2018 Ordered by an unspecified provider. Result [facility] Provider CV CARDIAC SERVICES PROCE DURES [...] documented as of this encounter Care Teams Clipman Relationship Specialty Start Date End Date Elmer Wallace MD PCP - General 02/09/17 03/17/22 Lopez Pool MD PCP - General Family Medicine 03/18/22 Hema Castaneda MD Consulting Physician Cardiology 01/11/19 Colleen Bain MD Referring Physician Endocrinology Diabetes & Metabolism 04/07/19 Rosette Espinoza MD Referring Physician Cardiology 04/07/19 Jenni Hart[place], RN Registered Nurse Cardiology 04/02/21 04/22/21 Meenu Jones NP Yarn Dyer Cardiology 04/02/21 04/22/21 Jacqueline Schaeffer, nut former Failure Coordinator Cardiology 07/13/24 Jenni Hart[place], RN Registered Nurse 07/13/24 08/01/24 Anat Hutchison 07/13/24 Zeynep Pérez, MIRI [address] [facility] [address] [place] [address] SHOP Outpatient Guard Sergeant 02/03/25 03/02/25 documented as of this encounter
--- OUTSIDE RECORDS SUMMARY | 2025-04-18 10:34 | XMS_ITS | Encounter Summary ---
Author Organization [facility] Address [address] [place] [address] Phone Care Team Providers Care Licensing Representative Name Role Phone Elmer Wallace MD Primary Care Provider Hema Castaneda MD Unavailable [phone] Colleen Bain MD Unavailable [phone] Rosette Espinoza MD Unavailable Jenni Hartley RN Unavailable Unavailable Meenu Jones NP Unavailable [phone] Lopez Pool MD Primary Care Provider [phone] Jacqueline Schaeffer RN Unavailable Unavailable Jenni Hartley RN Unavailable Unavailable Anat Hutchison Unavailable Unavailable Zeynep Pérez RN Unavailable [phone] Encounter Details Date Type Department Care Team (Latest Contact Info) Description 09/02/2017 Orders Only [facility] CONVERSION Scanning, Provider Social History Tobacco Use Types Packs/Day Years Used Date Smoking Tobacco: Never Assessed Comments Unknown Sex and Gender Information Value Date Recorded Sex Assigned at Not on file Legal Sex Female 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 SPECIALIST HOME HEALTH Gender Identity Female 07/13/2018 9:28 AM CDT Sexual Orientation Not on file documented as of this encounter Plan of Treatment Upcoming Encounters Date Type Department Care Team (Late st Contact Info) Description 05/03/2025 10:00 AM CDT Hospital Encounter [facility] Endoscopy [address] [place], [place] [address] Sea Ignacio MD [address] [place] [address] 05/03/2025 10:00 AM CDT - 05/03/2025 10:45 AM CDT Surgery [facility] Endoscopy [address] [place] [address] Sea Ignacio MD [address] [place] [address] COLONOSCOPY Scheduled Procedures Name Priority Associated Diagnoses Date/Ti me COLONOSCOPY Iron deficiency anemia, unspecified iron deficiency anemia type Abnormal colonoscopy 05/03/2025 10:00 AM CDT documented as of this encounter Procedures Procedure Name Priority Date/Time Associated Diagnosis Comments PULMONARY FUNCTION TEST (PFT) 09/02/2017 10:23 AM CODING SPECIALIST HOME HEALTH documented in this encounter Results * PULMONARY FUNCTION TEST (PFT) (09/02/2017 10:23 AM CODING SPECIALIST HOME HEALTH) Anatomical Region Laterality Modality PFT us Provider Scanning PFT ORDERABLES Final Result documented in this encounter Visit Diagnoses Not on filedocumented in this encounter Additional Health Concerns Infection Onset Date Last Indicated Resolved Time COVID: Suspected 03/13/2022 03/13/2022 03/13/2022 6:26 PM CDT documented as of this encounter Care Teams Licensing Representative Relationship Specialty Start Date End Date Elmer Wallace MD PCP - General 02/09/17 03/17/22 Lopez Pool MD PCP - General Family Medicine 03/18/22 Hema Castaneda MD Consulting Physician Cardiology 01/11/19 Colleen Bain MD Referring Physician Endocrinology Diabetes & Metabolism 04/07/19 Rosette Espinoza MD Referring Physician Cardiology 04/07/19 Jenni Hart[place], RN Registered Nurse Cardiology 04/02/21 04/22/21 Meenu Jones NP Octave Board Assembler Cardiology 04/02/21 04/22/21 Jacqueline Schaeffer, hvac r tech Failure Coordinator Cardiology 07/13/24 Jenni Hart[place], RN Registered Nurse 07/13/24 08/01/24 Anat Hutchison 07/13/24 Zeynep Pérez, RN [address] [facility] [address] [place] [address] SHOP Outpatient Automotive Parts Counter Associate 02/03/25 03/02/25 documented as of this encounter
--- OUTSIDE RECORDS SUMMARY | 2025-04-18 10:34 | XMS_ITS | Encounter Summary ---
Author Organization [facility] Address [address] [place] [address] Phone Care Team Providers Care Clinical Research Nurse Coordinator Name Role Phone Elmer Wallace MD Primary Care Provider Hema Castaneda MD Unavailable [phone] Colleen Bain MD Unavailable [phone] Rosette Espinoza MD Unavailable [phone] Jenni Hartley RN Unavailable Unavailable Meenu Jones NP Unavailable [phone] Lopez Pool MD Primary Care Provider [phone] Jacqueline Schaeffer RN Unavailable Unavailable Jenni Hartley RN Unavailable Unavailable Anat Hutchison Unavailable Unavailable Zeynep Pérez RN Unavailable [phone] Encounter Details Date Type Department Care Team (Late st Contact Info) Description 01/05/2018 Orders Only [facility] CLINCONV Provider, MD Lexi [address] [place] [address] Social History Tobacco Use Types Packs/Day Years Used Date Smoking Tobacco: Former Comments Unknown Sex and Gender Information Value Date Recorded Sex Assigned at Not on file Legal Sex Female 3:00 AM HAND STRAIGHTENER Gender Identity Female 07/13/2018 9:28 AM CDT Sexual Orientation Not on file documented as of this encounter Plan of Treatment Upcoming Encounters Date Type Department Care Team (Late st Contact Info) Description 05/03/2025 10:00 AM CDT Hospital Encounter [facility] Endoscopy [address] [place] [address] Sea Ignacio MD [address] [place] [address] 05/03/2025 10:00 AM CDT - 05/03/2025 10:45 AM CDT Surgery [facility] Endoscopy [address] [address] [place], [place] [address] Sea Ignacio MD [address] [place] [address] COLONOSCOPY Scheduled Procedures Name Priority Associated Diagnoses [...] Narrative 01/05/2018 Ordered by an unspecified provider. [facility] Provider CV CARDIAC SERVICES PROCE DURES Final Result * CARDIOLOGY REPORT (01/05/2018) Anatomical Region Laterality Modality Other Narrative 01/05/2018 Ordered by an unspecified provider. [facility] Provider CV CARDIAC SERVICES PROCE DURES Final Result * CARDIOLOGY REPORT (01/05/2018) Anatomical Region Laterality Modality Other Narrative 01/05/2018 Ordered by an unspecified provider. [facility] Provider CV CARDIAC SERVICES PROCE DURES Final Result * CARDIOLOGY REPORT (01/05/2018) Anatomical Region Laterality Modality Other Narrative 01/05/2018 Ordered by an unspecified provider. [facility] Provider CV CARDIAC SERVICES PROCE DURES Final Result * CARDIOLOGY REPORT (01/05/2018) Anatomical Region Laterality Modality Other Narrative 01/05/2018 Ordered by an unspecified provider. [facility] Provider CV CARDIAC SERVICES PROCE DURES Final Result * CARDIOLOGY REPORT (01/05/2018) Anatomical Region Laterality Modality Other Narrative 01/05/2018 Ordered by an unspecified provider. [facility] Provider CV CARDIAC SERVICES PROCE DURES Final Result * CARDIOLOGY REPORT (01/05/2018) Anatomical Region Laterality Modality Other Narrative 01/05/2018 Ordered by an unspecified provider. [facility] Provider CV CARDIAC SERVICES PROCE DURES Final Result * CARDIOLOGY REPORT (01/05/2018) Anatomical Region Laterality Modality Other Narrative 01/05/2018 Ordered by an unspecified provider. [facility] Provider CV CARDIAC SERVICES PROCE DURES Final Result documented in this encounter Visit Diagnoses Not on filedocumented in this encounter Additional Health Concerns Infection Onset Date Last Indicated Resolved Time COVID: Suspected 03/13/2022 03/13/2022 03/13/2022 6:26 PM CDT documented as of this encounter Care Teams Clinical Research Nurse Coordinator Relationship Specialty Start Date End Date Elmer Wallace MD PCP - General 02/09/17 03/17/22 Lopez Pool MD PCP - General Family Medicine 03/18/22 Hema Castaneda MD Consulting Physician Cardiology 01/11/19 Colleen Bain MD Referring Physician Endocrinology Diabetes & Metabolism 04/07/19 Rosette Espinoza MD Referring Physician Cardiology 04/07/19 Jenni Hart[place], RN Registered Nurse Cardiology 04/02/21 04/22/21 Meenu Jones NP Fourdrinier Machine Tender Cardiology 04/02/21 04/22/21 Jacqueline Schaeffer, kick plate installer Failure Coordinator Cardiology 07/13/24 Jenni Hart[place], RN Registered Nurse 07/13/24 08/01/24 Anat Hutchison 07/13/24 Zeynep Pérez, RN [address] [facility] [address] [place] [address] SHOP Outpatient Risk Compliance Analyst 02/03/25 03/02/25 documented as of this encounter
--- OUTSIDE RECORDS SUMMARY | 2025-04-18 10:34 | XMS_ITS | Encounter Summary ---
Author Organization [facility] [facility] Address [address] [place] [address] Phone Care Team Providers Care Die Maker Bench Stamping Name Role Phone Elmer Wallace MD Primary Care Provider Hema Castaneda MD Unavailable [phone] Colleen Bain MD Unavailable [phone] Rosette Espinoza MD Unavailable [phone] Jenni Hartley RN Unavailable Unavailable Meenu Jones NP Unavailable [phone] Lopez Pool MD Primary Care Provider [phone] Jacqueline Schaeffer RN Unavailable Unavailable Jenni Hartley RN Unavailable Unavailable Anat Hutchison Unavailable Unavailable Zeynep Pérez RN Unavailable [phone] Encounter Details Date Type Department Care Team (Late st Contact Info) Description 01/14/2018 Orders Only [facility] CAR CLINCONV Provider, MD Lexi [address] [place] [address] Social History Tobacco Use Types Packs/Day Years Used Date Smoking Tobacco: Former Comments Unknown Sex and Gender Information Value Date Recorded Sex Assigned at Not on file Legal Sex Female 3:00 AM POLICY SERVICES REPRESENTATIVE Gender Identity Female 07/13/2018 9:28 AM CDT Sexual Orientation Not on file documented as of this encounter Plan of Treatment Upcoming Encounters Date Type Department Care Team (Late st Contact Info) Description 05/03/2025 10:00 AM CDT Hospital Encounter [facility] Endoscopy [address] [place] [address] Sea Ignacio MD [address] [place] [address] 05/03/2025 10:00 AM CDT - 05/03/2025 10:45 AM CDT Surgery [facility] Endoscopy [address] [address] [place], [place] [address] Sea Ignacio MD [address] [place] [address] COLONOSCOPY Scheduled Procedures Name Priority Associated Diagnoses [...] RUPA POSADA Final Result * CARDIOLOGY REPORT (01/14/2018) Anatomical Region Laterality Modality Other Narrative 01/14/2018 Ordered by an unspecified provider. [facility] Provider CV CARDIAC SERVICES PROCE DURES Final Result * CARDIOLOGY REPORT (01/14/2018) Anatomical Region Laterality Modality Other Narrative 01/14/2018 Ordered by an unspecified provider. [facility] Provider CV CARDIAC SERVICES PROCE DURES Final Result * CARDIOLOGY REPORT (01/14/2018) Anatomical Region Laterality Modality Other Narrative 01/14/2018 Ordered by an unspecified provider. [facility] Provider CV CARDIAC SERVICES PROCE DURES Final Result * CARDIOLOGY REPORT (01/14/2018) Anatomical Region Laterality Modality Other Narrative 01/14/2018 Ordered by an unspecified provider. [facility] Provider CV CARDIAC SERVICES PROCE DURES Final Result * CARDIOLOGY REPORT (01/14/2018) Anatomical Region Laterality Modality Other Narrative 01/14/2018 Ordered by an unspecified provider. [facility] Provider CV CARDIAC SERVICES PROCE DURES Final Result * CARDIOLOGY REPORT (01/14/2018) Anatomical Region Laterality Modality Other Narrative 01/14/2018 Ordered by an unspecified provider. Result [facility] Provider CV CARDIAC SERVICES PROCE DURES Final Result * CARDIOLOGY REPORT (01/14/2018) Anatomical Region Laterality Modality Other Narrative 01/14/2018 Ordered by an unspecified provider. Result [facility] Provider CV CARDIAC SERVICES PROCE DURES Final Result documented in this encounter Visit Diagnoses Not on filedocumented in this encounter Additional Health Concerns Infection Onset Date Last Indicated Resolved Time COVID: Suspected 03/13/2022 03/13/2022 03/13/2022 6:26 PM CDT documented as of this encounter Care Teams Die Maker Bench Stamping Relationship Specialty Start Date End Date Elmer Wallace MD PCP - General 02/09/17 03/17/22 Lopez Pool MD PCP - General Family Medicine 03/18/22 Hema Castaneda MD Consulting Physician Cardiology 01/11/19 Colleen Bain MD Referring Physician Endocrinology Diabetes & Metabolism 04/07/19 Rosette Espinoza MD Referring Physician Cardiology 04/07/19 Jenni Hart[place], RN Registered Nurse Cardiology 04/02/21 04/22/21 Meenu Jones NP Boilermaker Central Steam Plant Cardiology 04/02/21 04/22/21 Jacqueline Schaeffer, brine process operator Failure Coordinator Cardiology 07/13/24 Jenni Hart[place], RN Registered Nurse 07/13/24 08/01/24 Anat Hutchison 07/13/24 Zeynep Pérez, MIRI [address] [facility] [address] [place] [address] SHOP Outpatient Low Altitude Air Defense Gunner 02/03/25 03/02/25 documented as of this encounter
--- OUTSIDE RECORDS SUMMARY | 2025-04-18 10:34 | XMS_ITS ---
Author Organization [facility] Address [address] [place], [place] [id number] Care Team Providers Care Bookbinder Chief Name Role Phone JOVANNI CAST Unavailable [phone] Lopez Pool Unavailable Unavailable TONY KIM Unavailable [phone] Allergies Allergen (clinical drug ingredient) Drug/Non Drug Allergy documented on EMR Reaction Allergy Type Onset Date Status Non-steroidal anti-inflammatory agent (FN) NSAIDs Unknown Drug Allergy Active REASON FOR VISIT *General care Medications Medication SIG (Take, Route, Frequency, Duration) Notes Start Date End Date Status atorvastatin 40 MG Oral Tablet ORAL atorvastatin 40 MG Oral TabletOriginal Medicationatorvastatin 40 MG Oral Tablet *Reorder from [employer] for eRx and Interaction Alerts* 6 Not-Takin g Anastrozole 1 MG Oral Tablet ORAL anastrozole 1 MG Oral TabletOriginal Medicationanastrozole 1 MG Oral Tablet *Reorder from [employer] for eRx and Interaction Alerts* 6 Not-Takin g aspirin 81 MG Oral Tablet ORAL aspirin 81 MG Oral TabletOriginal Medicationaspirin 81 MG Oral Tablet *[facility] Interaction [facility]* 6 Not-Takin g Warfarin Sodium 2 MG Oral Tablet ORAL warfarin sodium 2 MG Oral TabletOriginal Medicationwarfarin sodium 2 MG Oral Tablet *Reorder from [employer] for eRx and Interaction Alerts* 6 Active Lisinopril 40 MG Oral Tablet ORAL lisinopril 40 MG Oral TabletOriginal Medicationlisinopril 40 MG Oral Tablet *Reorder from [employer] for eRx and Interaction Alerts* 6 Not-Takin g Basaglar KwikPen 100 UNIT/ML as directed Subcutaneous Active Amiodarone HCl 200 MG 1 tablet Orally Once a day Active Iron 325 (65 Fe) MG 1 tablet Orally Three times a Week Active Furosemide 40 MG 1 tablet Orally Once a day Active Levothyroxine Sodium 100 MCG 1 tablet in the morning on an empty stomach Orally Once a day Active metformin hydrochloride 500 MG Oral Tablet ORAL metformin hydrochloride 500 MG Oral TabletOriginal Medicationmetformin hydrochloride 500 MG Oral Tablet *Reorder from [employer] for eRx and Interaction Alerts* 6 Active sertraline 100 MG Oral Tablet ORAL sertraline 100 MG Oral TabletOriginal Medicationsertraline 100 MG Oral Tablet *Reorder from [employer] for eRx and Interaction Alerts* 6 Active Spironolactone 25 MG 1 tablet Orally Active Magnesium 400 MG as directed Orally Active Trelegy Ellipta 100-62.5-25 MCG/ACT 1 puff Inhalation Once a day Active ferrous sulfate 325 MG Oral Tablet ORAL ferrous sulfate 325 MG Oral TabletOriginal Medicationferrous sulfate 325 MG Oral Tablet *Reorder from [employer] for eRx and Interaction Alerts* 6 Not-Takin g calcium carbonate 600 MG / ergocalciferol 200 UNT Oral Tablet ORAL calcium carbonate 600 MG / ergocalciferol 200 UNT Oral TabletOriginal Medicationcalcium carbonate 600 MG / ergocalciferol 200 UNT Oral Tablet *Reorder from [employer] for eRx and Interaction Alerts* 6 Active Vital Signs Height 66 in 03/30/2025 Weight 250 lbs 03/30/2025 BMI 40.35 kg/m2 03/30/2025 Height-cm 167.64 cm 03/30/2025 Weight-kg 113.4 kg 03/30/2025 Encounters Encounter Location Date Provider Diagnosis [address] [id number] 03/30/2025 TONY KIM Tinea unguium B35.1 ; Pain in right foot M79.671 ; Pain in left foot M79.672 ; Atherosclerosis of anvik arteries of extremities with intermittent claudication, bilateral legs I70.213 ; Acquired keratosis [keratoderma] palmaris et plantaris L85.1 and Type 2 diabetes mellitus with other circulatory complications E11.59 Assessments Encounter Date Diagnosis (ICD Code) Assessment Notes Treatment Notes Treatment Clinical Notes Section Notes 03/30/2025 Tinea unguium (ICD-10 - B35.1) Nails 1-5 Bilateral were debrided extensively with nail nippers and emery board, reducing length and girth to pink healthy tissue with any subungual debris and necrotic tissue removed 03/30/2025 Pain in right foot (ICD-10 - M79.671) 03/30/2025 Pain in left foot (ICD-10 - M79.672) 03/30/2025 Atherosclerosis of anvik arteries of extremities with intermittent claudication, bilateral legs (ICD-10 - I70.213) Check and protect LE bilateral daily. Call if any changes or concerns 03/30/2025 Acquired keratosis [keratoderma] palmaris et plantaris (ICD-10 - L85.1) A total of 2 corns or calluses, as described in the note above, were cut and pared utilizing a #15 blade 03/30/2025 Type 2 diabetes mellitus with other [...] of foot ulcers in patients with diabetes. Plan Of Treatment Treatment Notes Assessment Notes Tinea unguium Nails 1-5 Bilateral were debrided extensively with nail nippers and emery board, reducing length and girth to pink healthy tissue with any subungual debris and necrotic tissue removed Atherosclerosis of anvik ar teries of extremities with intermittent claudication, bilateral legs Check and protect LE bilateral daily. Call if any changes or concerns Acquired keratosis [keratode rma] palmaris et plantaris A total of 2 corns or calluses, as described in the note above, were cut and pared utilizing a #15 blade Type 2 diabetes mellitus wit h other circulatory complications The lifetime risk of a foot ulcer [...] of foot ulcers in patients with diabetes. Next Appt Details Follow Up: 10 - 12 weeks, Re ason: At-Risk Foot care, sooner if problems develop. Provider Name:TONY KEENE, 06/01/2025 09:10:00 AM, [address] [place] [address], [id number], Progress Notes * WALKER KULKARNI LDOB:[birth year] (79 yo F)Acc No.[id number]:03/30/2025 Patient: WALKER ISAAC Provider: Richy KIM :1945 A ge:79 Y S ex:Female Date:03/30/2025 Address:[address] [place], [place] [id number] Subjective: * Chief Complaints: * 1 . *General care. * HPI: H PI: General care P robert presents to the office for diabetic foot care. Her blood sugars run near 100. She does not know her A1C. Patient states that their nails are thickened, elongated and painful. Patient states that it is aggravated by shoe gear. Onset is gradual., Patient denies taking blood thinners., Date last seen by Dr. Pool was 02/2025., Initials [facility]. * ROS: G eneral / Constitutional: Patient denies w eakness. M usculoskeletal: Patient complains of h ammertoes, [...] Restless leg syndrome, Abdominal aortic aneurysm. * Family History: F ather: PRN - Father: :: Heart Disease < 55 yrs,,known absent . M other: PRN - Mother: :: Heart Disease < 55 yrs,,known absent . S ister: SIB - Sister: . * Social History: M igrated Social History: M igrated Social History: History of tobacco use : , Smoking Status : Former smoker. * Medications: T erickag Trelegy Ellipta 100-62.5-25 MCG/ACT Aerosol Powder Breath [...] sodium 2 MG Oral Tablet *Reorder from [facility] for eRx and Interaction Alerts*, Taking calcium carbonate 600 MG / ergocalciferol 200 UNT Oral Tablet ORAL , Notes to Pharmacist: calcium carbonate 600 MG / ergocalciferol 200 UNT Oral TabletOriginal Medicationcalcium carbonate 600 MG / ergocalciferol 200 UNT Oral Tablet *Reorder from [facility] for eRx and Interaction Alerts*, Taking metformin hydrochloride 500 MG Oral Tablet ORAL , Notes to Pharmacist: metformin hydrochloride 500 MG Oral TabletOriginal Medicationmetformin hydrochloride 500 MG Oral Tablet *Reorder from [facility] for eRx and Interaction Alerts*, Taking sertraline 100 MG Oral Tablet ORAL , Notes to Pharmacist: sertraline 100 MG Oral TabletOriginal Medicationsertraline 100 MG Oral Tablet *Reorder from [facility] for eRx and Interaction Alerts*, Not-Taking Lisinopril 40 MG Oral Tablet ORAL , Notes to Pharmacist: lisinopril 40 MG Oral TabletOriginal Medicationlisinopril 40 MG Oral Tablet *Reorder from [facility] for eRx and Interaction Alerts*, Not-Taking Anastrozole 1 MG Oral Tablet ORAL , Notes to Pharmacist: anastrozole 1 MG Oral TabletOriginal Medicationanastrozole 1 MG Oral Tablet *Reorder from [facility] for eRx and Interaction Alerts*, Not-Taking aspirin 81 MG Oral Tablet ORAL , Notes to Pharmacist: aspirin 81 MG Oral TabletOriginal Medicationaspirin 81 MG Oral Tablet *Reorder from [facility] for eRx and Interaction Alerts*, Not-Taking atorvastatin 40 MG Oral Tablet ORAL , Notes to Pharmacist: atorvastatin 40 MG Oral TabletOriginal Medicationatorvastatin 40 MG Oral Tablet *Reorder from [facility] for eRx and Interaction Alerts*, Not-Taking ferrous sulfate 325 MG Oral Tablet ORAL , Notes to Pharmacist: ferrous sulfate 325 MG Oral TabletOriginal Medicationferrous sulfate 325 MG Oral Tablet *Reorder from [facility] for eRx and Interaction Alerts*, Medication List reviewed and reconciled with the patient * Allergies: N SAIDs: Allergy. Objective: * Vitals: W t: 250 lbs, Wt-k.4 kg, Ht: 66 in, Ht-cm: 167.64 cm, BMI: 40.35 Index, Body Surface Area: 2.3. * Examination: P hysical Examination: General appearance: A lert, pleasant, well-nourished and in no acute distress. D ermatologic: Skin findings: S kin is thin, atrophic and lacking pedal hair. Hypertrophic / hyperkeratotic lesion: p lantar aspect of the left hallux without pain on palpation. medial aspect of right 1st IPJ no pain on palpation. Nail pathology: N ails 1, 2, 3, [...] inversion, and eversion in bilateral lower extremities. Hammertoes D orsally contracted digits 2-5 bilateral. The deformity is rigid and nonreducible. mild pain in some shoes.. Assessment: * Assessment: 1. T inea unguium - B35.1 (Primary) 2 . P ain in right foot - M79.671 ? 3 . P ain in left foot - M79.672 4 . A therosclerosis of anvik arteries of extremities with intermittent claudication, bilateral legs - I70.213 5 . Acquired keratosis [keratoderma] palmaris et plantaris - L85.1 6 . T ype 2 diabetes mellitus with other circulatory complications - E11.59 Plan: * Treatment: 2. A therosclerosis of anvik arteries of extremities with intermittent claudication, bilateral legs Notes: Check and protect LE bilateral daily. Call if any changes or concerns 3. A cquired keratosis [keratoderma] palmaris et plantaris Notes: A total of 2 corns or calluses, as described in the note above, were cut and pared utilizing a #15 blade 4. T ype 2 diabetes mellitus with other circulatory complications Notes: The lifetime risk of a foot ulcer [...] of foot ulcers in patients with diabetes. * Immunizations: Immunization record has been reviewed and updated. * Follow Up: 1 0 - 12 weeks (Reason: At-Risk Foot care, sooner if problems develop.) * Billing Information: * Visit Code: * Procedure Codes: * Electronic signature of BARBARA KIM DPM on 04/18/2025 at 10:33 AM CDT Sign off status: Pending * Provider: Richy IKM Date: 0 03/30/2025 Generated for Rahul Graf on: 0 04/18/2025 10:33 AM CDT History and Physical Notes * HPI (History of Present Illness) Category Sub-Category Detail Notes Category Not es HPI General care Patient presents to the office for diabetic foot care. Her blood sugars run near 100. She does not know her A1C. Patient states that their nails are thickened, elongated and painful. Patient states that it is aggravated by shoe gear. Onset is gradual., Patient denies taking blood thinners., Date last seen by Dr. Pool was 02/2025., Initials [facility] Examination Category Sub-Category Detail Notes Category Not es Dermatologic Skin findings: Skin is thin, at rophic and lacking pedal hair Nail pathology: Nails 1, 2, 3, 4, an d 5 bilateral are elongated, thick, discolored, and dystrophic with subungual debris. They are painful to palpation Hypertrophic / hyperkeratotic lesion: pl jamey aspect of the left hallux without pain on palpation. medial aspect of right 1st IPJ no pain on palpation Neurologic Gross sensation Grossly intact t o [...] inversion, and eversion in bilateral lower extremities Hammertoes Dorsally contracted digits 2-5 bilateral. The deformity is rigid and nonreducible. mild pain in some shoes.
--- OUTSIDE RECORDS SUMMARY | 2025-04-18 10:34 | XMS_ITS | Encounter Summary ---
Author Organization [facility] [employer] [facility] Address [address] [place] [address] Phone Care Team Providers Care Brick Shader Name Role Phone Elmer Wallace MD Primary Care Provider Hema Castaneda MD Unavailable [phone] Colleen Bain MD Unavailable [phone] Rosette Espinoza MD Unavailable [phone] Jenni Hartley RN Unavailable Unavailable Meenu Jones NP Unavailable [phone] Lopez Pool MD Primary Care Provider [phone] Jacqueline Schaeffer RN Unavailable Unavailable Jenni Hartley RN Unavailable Unavailable Anat Hutchison Unavailable Unavailable Zeynep Pérez RN Unavailable [phone] Encounter Details Date Type Department Care Team (Late st Contact Info) Description 01/20/2018 Orders Only [facility]INCONV Provider, MD Lexi [address] [place] [address] Social History Tobacco Use Types Packs/Day Years Used Date Smoking Tobacco: Former Comments Unknown Sex and Gender Information Value Date Recorded Sex Assigned at Not on file Legal Sex Female 3:00 AM CLIENT ACCOUNT REPRESENTATIVE Gender Identity Female 07/13/2018 9:28 AM CDT Sexual Orientation Not on file documented as of this encounter Plan of Treatment Upcoming Encounters Date Type Department Care Team (Late st Contact Info) Description 05/03/2025 10:00 AM CDT Hospital Encounter [facility] Endoscopy [address] Tayla OATES, JADEN [address] Sea Ignacio MD [address] [place] [address] 05/03/2025 10:00 AM CDT - 05/03/2025 10:45 AM CDT Surgery [facility] Endoscopy [id number] JAD[address] [address] Sea Ignacio MD [address] [place] [address] COLONOSCOPY Scheduled Procedures Name Priority Associated Diagnoses Date/Ti me COLONOSCOPY Iron deficiency anemia, unspecified iron deficiency anemia type Abnormal colonoscopy 05/03/2025 10:00 AM CDT documented as of this encounter Procedures Procedure Name Priority Date/Time Associated Diagnosis Comments CARDIOLOGY REPORT 01/20/2018 documented in this encounter Results * CARDIOLOGY REPORT (01/20/2018) Anatomical Region Laterality Modality Other Narrative 01/20/2018 Ordered by an unspecified provider. Historical Provider [facility] POSADA Final Result documented in this encounter Visit Diagnoses Not on filedocumented in this encounter Additional Health Concerns Infection Onset Date Last Indicated Resolved Time COVID: Suspected 03/13/2022 03/13/2022 03/13/2022 6:26 PM CDT documented as of this encounter Care Teams Brick Shader Relationship Specialty Start Date End Date Elmer Wallace MD PCP - General 02/09/17 03/17/22 Lopez Pool MD PCP - General Family Medicine 03/18/22 Hema Castaneda MD Consulting Physician Cardiology 01/11/19 Colleen Bain MD Referring Physician Endocrinology Diabetes & Metabolism 04/07/19 Rosette Espinoza MD Referring Physician Cardiology 04/07/19 Jenni Hartley, RN Registered Nurse Cardiology 04/02/21 04/22/21 Meenu Jones NP Insole Tack Puller Hand Cardiology 04/02/21 04/22/21 Jacqueline Schaeffer, auto glass installer Failure Coordinator Cardiology 07/13/24 Jenni Hartley, RN Registered Nurse 07/13/24 08/01/24 Anat Hutchison 07/13/24 Zeynep Pérez, RN [address] [address] [facility] Outpatient [employer] Web Developer 02/03/25 03/02/25 documented as of this encounter
--- OUTSIDE RECORDS SUMMARY | 2025-04-18 10:34 | XMS_ITS | Encounter Summary ---
Author Organization [facility] Address [address] [place] [address] Care Team Providers Care Craft Recruiter Name Role Phone Hema Castaneda MD Unavailable [phone] Colleen Bain MD Unavailable [phone] Rosette Espinoza MD Unavailable [phone] Lopez Pool MD Primary Care Provider [phone] Jacqueline Schaeffer RN Unavailable Unavailable Jenni Hartley RN Unavailable Unavailable Anat Hutchison Unavailable Unavailable Zeynep Pérez RN Unavailable [phone] Encounter Details Date Type Department Care Team (Late st Contact Info) Description 03/18/2022 Documentation Case Management [address] [place] [address] Myla Gomez RN Social History Tobacco Use [...] week 03/14/2022 How often do you attend [facility] or [facility] services? Never 03/14/2022 Do you belong to any clubs o r organizations such as adventist groups, unions, fraternal or athletic groups, or [...] slept in a prison (including now)? 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 Never 03/18/2022 6:56 AM Lorna Hilliard RN Q2: How many drinks containing alcohol do you have on a typical day when you are drinking? Patient does not drink 03/18/2022 6:56 AM Lorna Hilliard RN Q3: How often do you have six or more drinks on one occasion? Never 03/18/2022 6:56 AM WILLT Lorna Garcia RN documented as of this encounter Plan of Treatment Upcoming Encounters Date Type Department Care Team (Late st Contact Info) Description 05/03/2025 10:00 AM CDT Hospital Encounter [facility] Endoscopy [address] J[address] [address] Sea Ignacio MD [address] [place] [address] 05/03/2025 10:00 AM CDT - 05/03/2025 10:45 AM CDT Surgery [facility] Endoscopy [address] JADEN [address]ados [address] Sea Ignacio MD [address] [place] [address] COLONOSCOPY Scheduled Procedures Name Priority Associated Diagnoses Date/Ti me COLONOSCOPY Iron deficiency anemia, unspecified iron deficiency anemia type Abnormal colonoscopy 05/03/2025 10:00 AM CDT documented as of this encounter Visit Diagnoses Not on filedocumented in this encounter Care Teams Craft Recruiter Relationship Specialty Start Date End Date Lopez Pool MD PCP - General Family Medicine 03/18/22 Hema Castaneda MD Consulting Physician Cardiology 01/11/19 Colleen Bain MD Referring Physician Endocrinology Diabetes & Metabolism 04/07/19 Rosette Espinoza MD Referring Physician Cardiology 04/07/19 aJcqueline Schaeffer, manager of financial reporting Failure Coordinator Cardiology 07/13/24 Jenni Hartley RN Registered Nurse 07/13/24 08/01/24 Anat Hutchison 07/13/24 Zeynep Pérez, RN [address] [facility] [address] [place] [address] [facility] Outpatient Food Safety Auditor 02/03/25 03/02/25 documented as of this encounter
--- OUTSIDE RECORDS SUMMARY | 2025-04-18 10:34 | XMS_ITS | Clinical Summary ---
Author Organization [facility] Address [address] [place] [address] Care Team Providers Care Metal Tester Name Role Phone Lopez Pool MD Primary Care Provider [phone] Lopez Pool MD Unavailable [phone] Martine Garsia RN Unavailable Unavailable Medications ferrous sulfate, 65 mg elemental, 325 (65 FE) MG tabletIndications: supplement Take 1 tablet (325 mg total) by mouth 3 (three) times daily with meals. Indications: supplement 02/21/20 22 Active albuterol sulfate HFA 108 (90 Base) MCG/ACT inhalerIndications :COPD Inhale 2 puffs into the lungs every 6 (six) hours as needed. Indications: COPD 07/13/20 18 029 Active CALCIUM CARBONATE-VITAMIN D ORIndications:supp lement Take 1 tablet by mouth daily. Indications: supplement 02/21/20 22 Active Magnesium Oxide 400 MG CapIndications:sup plement Take 2 tablets by mouth daily. 30 capsule 02/18/20 22 Active amiodarone 200 MG tabletIndications: afib Take 1 tablet (200 mg total) by mouth daily. Indications: afib 03/19/20 22 Active Vitamin D3, cholecalciferol, 2000 UNIT Tab tabletIndications: supplement Take 0.5 tablets (25 mcg total) by mouth daily. Indications: supplement Active albuterol (PROVENTIL) (2.5 MG/3ML) 0.083% nebulizer solutionIndication s:breathing Take 3 mLs (2.5 mg total) by nebulization every 4 (four) hours as needed for Wheezing. 75 mL 09/03/20 22 Active levothyroxine (SYNTHROID) 137 MCG tabletIndications: thyroid Take 1 tablet (137 mcg total) by mouth every morning. Indications: thyroid Active sertraline (ZOLOFT) 100 MG tabletIndications: mood Take 1 tablet (100 mg total) by mouth daily. Indications: mood Active spironolactone (ALDACTONE) 25 MG tabletIndications: diuretic Take 1 tablet (25 mg total) by mouth daily. Indications: diuretic Active metFORMIN (GLUCOPHAGE) 500 MG tabletIndications: Diabetes Mellitus Take 1 tablet (500 mg total) by mouth 2 (two) times daily with meals. Indications: Diabetes 11/06/19 24 Active Insulin Glargine (BASAGLAR KWIKPEN SC)Indications:Concepción mezayovana Inject 55 Units into the skin nightly at bedtime. Indications: Diabetes 12/02/19 24 Active fluticasone propionate (FLONASE) 50 MCG/ACT nasal sprayIndications:N victor m Decongestion 2 sprays by Nasal route daily. Indications: Nasal Decongestion 12/10/19 24 Active ondansetron (ZOFRAN-ODT) 4 MG disintegrating tablet Take 1 tablet (4 mg total) by mouth every 8 (eight) hours as needed for Nausea. 20 tablet 03/06/20 24 Active Fluticasone-Umecli din-Vilant (TRELEGY ELLIPTA) 100-62.5-25 MCG/ACT AEROSOL POWDER, BREATH ACTIVATED 1 puff daily. Active sucralfate (CARAFATE) 1 G tablet Take 1 tablet (1 g total) by mouth 4 (four) times daily. 11/25/19 25 Active pantoprazole EC (PROTONIX) 40 MG tablet Take 1 tablet (40 mg total) by mouth 2 (two) times a day. Active traMADol (ULTRAM) 50 MG tablet Take 1 tablet (50 mg total) by mouth every 6 (six) hours as needed. 09/19/20 24 Active cetirizine (ZYRTEC) 10 MG tablet Take 1 tablet (10 mg total) by mouth daily. Active ipratropium-albute rol (DUONEB) 0.5-2.5 (3) MG/3ML Solution Take by nebulization as needed. Active triamcinolone (KENALOG) 0.025 % cream Apply topically as needed. Active nystatin (MYCOSTATIN) powder Apply topically as needed. Active OXYGEN 2 L/min by Nasal route as needed (use nightly and prn as needed to keep pulse ox greater than 89%). Active acetaminophen (TYLENOL) 500 MG tablet Take 2 tablets (1,000 mg total) by mouth every 6 (six) hours as needed. Active furosemide (LASIX) 80 MG tabletIndications: diuretic Take 1 tablet (80 mg total) by mouth 2 (two) times daily. Indications: diuretic Take every morning. Take the second dose if weight increases 2 pounds above baseline in 1 days or 3-4 pounds above baseline over the course of a week. 03/04/20 25 Active Active Problems Problem Noted Date Diagnosed Date CHF (congestive heart failure) ([facility]) 03/02/2025 Acute on chronic renal insufficiency 02/21/2025 Liver cirrhosis ([facility]) 02/21/2025 Anemia 02/20/2025 GI bleeding 12/20/2024 Symptomatic anemia 12/19/2024 Acquired hypothyroidism 12/08/2022 Overview (06/18/2024): Last Assessment & Plan: Symptomatically euthyroid but recent TSH elevated. Has scheduled repeat FT4 and TSH per Dr. Espinoza. History of bladder cancer 04/17/2021 Overview (04/17/2021): Added automatically from request for surgery [id number] Bladder tumor 11/21/2020 Overview (11/21/2020): Added automatically from request for surgery [id number] NATI (obstructive sleep apnea) 11/02/2020 Overview (06/18/2024): Last Assessment & Plan: -follows with Pulm Dr. Varela -as per Pulm notes on 04/30/2021: Previously on CPAP; no evidence of NAIT on last PSG in 2018. -patient continues with nocturnal desats -Daughter would like Ambulatory referral for Sleep Medicine at discharge, thinks her study needs to be repeated. Type 2 diabetes mellitus wit h other specified complication ([facility]) 12/19/2019 Overview (06/18/2024): Last Assessment & Plan: [...] at this time. Malignant neoplasm of breast ([facility]) 0 07/13/2018 Overview (06/18/2024): L radical mastectomy with chemo and XRT x [phone]. Last Assessment & Plan: Sp mastectomy - hold anastrozole inpatient, can resume on discharge. AF (atrial fibrillation) ([facility]) 03/24 Overview (06/18/2024): Last Assessment & Plan: Currently in sinus on exam. CHADS-vasc 8. - currently on warfarin 6 mg daily (goal 2-3) - cont sotolol, renally dosed Chronic obstructive pulmonary disease ([facility]) 08/28/2017 Overview (06/18/2024): Last Assessment & Plan: Continue Anoro ellipta daily - on 2L nocturnal oxygen. 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 03/24/2018 03/03/2025 Encounters Date Type Department Care Team Description 04/14/2025 1:50 PM CDT - 04/14/2025 11:59 PM CDT [place] [address] Natalia Pino NP Discharge Disposition: Home or Self Care (Routine Discharge) 04/14/[address] [place] [address] Natalia Pino NP 04/14/2025 Travel 04/04/2025 12:42 PM CDT - 04/04/2025 11:59 PM CDT [place] [address] [address] Lopez Pool MD Discharge Disposition: Home or Self Care (Routine Discharge) 04/04/[address] [place] [address] [address] Lopez Pool MD 04/04/2025 Travel 03/30/2025 11:00 AM CDT - 03/30/2025 11:59 PM CDT Hospital En[facility] [place] [address] [place] [address] Alis Lima MD Discharge Disposition: Home or Self Care (Routine Discharge) 03/30/2025 Travel 03/21/2025 11:25 AM CDT - 03/21/2025 11:59 PM CDT Hospital Encounter [address] [place] [address] Jacqueline Merritt PA-C Discharge Disposition: Home or Self Care (Routine Discharge) 03/21/2025 Orders Only [place] [address] [place] [address] Jacqueline Merritt PA-C 03/21/2025 Travel 03/14/2025 3:30 PM CDT - 03/14/2025 11:59 PM CDT Hospital Encounter [place] [address] [place] [id number] Lopez Pool MD Discharge Disposition: Home or Self Care (Routine Discharge) 03/14/2025 Orders Only [address] [place] [address] Lopez Pool MD 03/14/2025 Travel 03/07/2025 8:59 AM CDT - 03/07/2025 11:59 PM CDT Hospital Encounter [place] [address] [place] [address] Lopez Pool MD Discharge Disposition: Home or Self Care (Routine Discharge) 03/07/2025 8:34 AM CDT - 03/07/2025 8:58 AM CDT Hospital Encounter [facility] [place] [place] [address] Chris Koenig NP Discharge Disposition: Home or Self Care (Routine Discharge) 03/07/2025 Orders Only [facility] [place] [place] [address] Lopez Pool MD 03/07/2025 Travel 03/06/2025 [facility] [address] [place] [address] Martine Garsia, MIRI TCM (D/c from [facility] 03/04/25) 03/02/2025 9:34 PM CDT - 03/04/2025 9:05 AM CDT Hospital En[facility] [address] [place] [address] Sean Dai MD Wujek, Daniel A, MD Chest Pain; Shortness Of Breath Discharge Disposition: Home with Home Health Care 03/02/2025 Travel 02/28/2025 1:34 PM CDT - 02/28/2025 11:59 PM CDT Hospital Encounter [facility] [address] [place] [address] Jacqueline Merritt PA-C Discharge Disposition: Home or Self Care (Routine Discharge) 02/28/2025 1:25 PM CDT - 02/28/2025 1:33 PM CDT Hospital Encounter [facility] [place] [address] Lopez Pool MD Discharge Disposition: Home or Self Care (Routine Discharge) 02/28/2025 Orders Only [facility] [place] [address] Jacqueline Merritt PA-C 02/28/2025 Orders Only [place] [address] [place] [address] Lopez Pool MD 02/28/2025 Travel 02/27/2025 [facility] [address] [place] [id number] Martine Garsia, RN Care Management 02/27/2025 [facility] [address] [place] [id number] Martine Garsia, MIRI TCM ([facility] hospital d/c 02/24/25) 02/23/2025 Telephone [facility] Care Management [facility] [place] [address] Ramya Frances, car rental agent (Swing bed referral to [facility] from [facility]/) 02/21/2025 1:37 AM CDT Anesthesia Event [facility] [address] [place], [place] [address] [address] Rosalba Avery CRNA 02/21/2025 Travel 02/20/2025 10:26 PM CDT - 02/24/2025 10:15 AM CDT Hospital En[facility] [address] [place], [place] [address] [address] Ady Cardona DO Wujek, Daniel A, MD Shortness Of Breath Discharge Disposition: Home with Home Health Care 02/20/2025 12:35 PM CDT - 02/20/2025 10:25 PM CDT Hospital Encounter [facility] [address] [place], [place] [address] [address] Lopez Pool MD Discharge Disposition: Home or Self Care (Routine Discharge) 02/20/2025 Orders Only [address] [place] [address] Lopez Pool MD 02/20/2025 Travel 02/16/2025 12:30 PM CDT - 02/16/2025 11:59 PM CDT Hospital Encounter [place] [address] [place] [address] Lopez Pool MD Discharge Disposition: Home or Self Care (Routine Discharge) 02/16/2025 Orders Only [place] [address] [place] [address] Lopez Pool MD 02/16/2025 Travel 02/13/2025 4:06 PM CDT - 02/13/2025 11:28 PM CDT Hospital Encounter [facility] [place] [address] Lopez Pool MD Discharge Disposition: Home or Self Care (Routine Discharge) 02/13/2025 1:40 PM CDT - 02/13/2025 4:05 PM CDT Hospital Encounter [facility] [place] [address] [address] Lopez Pool MD Discharge Disposition: Home or Self Care (Routine Discharge) 02/13/2025 Orders Only [address] [place] [address] Lopez Pool MD 02/13/2025 Travel 02/07/2025 8:09 AM CDT - 02/07/2025 8:39 AM CDT [facility] [address] [place] [address] [place] [address] Lorin Contreras III, MD CYSTOSCOPY 02/07/2025 7:19 AM CDT - 02/07/2025 8:49 AM CDT Hospital Encounter [facility] [address] [place] [address] [place] [address] Lorin Contreras III, MD Discharge Disposition: Home or Self Care (Routine Discharge) 02/07/2025 Travel 01/27/2025 Travel 01/25/2025 4:23 PM CDT - 01/25/2025 11:59 PM CDT Hospital Encounter [address] [place] [address] Lopez Pool MD Discharge Disposition: Home or Self Care (Routine Discharge) 01/25/2025 Orders Only [address] [place] [address] Lopez Pool MD 01/25/2025 Travel from Last 3 Months Social History [...] materials from doctor or pharmacy Never 12/30/2023 C Utilities Answer Date Recorded In the past 12 months has th e [employer], gas, oil, or water Faveeo threatened to shut off services in your home? No 03/03/2025 Humiliation, Afraid, Rape, and Kick questionnair e Answer Date Recorded Within the last year, have y ou been afraid of your partner or ex-partner? No 03/03/2025 Within the last year, have y ou been humiliated or emotionally abused in other ways by your partner or ex-partner? No Within the last year, have y ou been kicked, hit, slapped, or otherwise physically hurt by your partner or ex-partner? No 03/03/2025 Within the last year, have y ou been raped or forced to have any kind of sexual activity by your partner or ex-partner? No 03/03/2025 Social Connection and Isolat ion Panel [NHANES] Answer Date Recorded In a typical week, how many times do you talk on the phone with family, friends, or neighbors? More than three times a week 02/22/2022 How often do you get togethe r with friends or relatives? Twice a week 02/22/2022 How often do you attend chur ch or pentecostalism services? 1 to 4 times per year 02/22/2022 Do you belong to any clubs o r organizations such as bahai groups, unions, fraternal or athletic groups, or [...] care, and heating? Not hard at all 03/03/2025 PHQ-2 Answer Date Recorded PHQ-2 Score - If the patient scores above 3, please move on to questions 3-9 0 02/22/2022 [facility] of Occupat ional Health - Occupational Stress [...] the money to buy more. Never true 03/03/20 25 Within the past 12 months, t he food you bought just didn't last and you didn't have money to get more. Never true 03/03/2025 PRAPARE - Transportation Answer Date Re corded In the past 12 months, has l ack of transportation kept you from medical appointments or from getting medications? No 02/16 In the past 12 months, has l ack of transportation kept you from meetings, work, or from getting things needed for daily living? No 03/03/2025 Housing Stability Vital Sign Answer Sebas e [...] the mortgage or rent on time? No 03/03/2025 In the past 12 months, how m any times have you moved where you were living? 0 03/03/2025 At any time in the past 12 m [facility], were you homeless or living in a skilled nursing (including now)? No 03/03/2025 Comments No Sex and Gender Information Value Date Recorded Sex Assigned at Female 11/01/2024 8:23 AM [employer] Legal Sex Female 10:48 PM [employer] Gender Identity Not on file Sexual Orientation Not on file Last Filed Vital Signs Vital Sign Reading Time Taken Comments Blood Pressure 116/59 03/04/2025 8:15 AM CDT Pulse 77 03/04/2025 8:15 AM CDT Temperature 36.3 C (97.3 F) 03/04/2025 5:43 AM CDT Respiratory Rate 18 03/04/2025 8:15 AM CDT Oxygen Saturation 95% 03/04/2025 8:15 AM CDT Inhaled Oxygen Concentration - - Weight 105.6 kg (232 lb 14.4 oz) 03/04/2025 5:43 AM CDT Height 167.6 cm (5' 6) 03/02/2025 11:1 6 PM CDT Body Mass Index 37.59 03/02/2025 11:16 PM CDT Plan of Treatment Upcoming Encounters Date Type Department Care Team (Late st Contact Info) Description 04/19/2025 3:[address] [facility] [address] [place] [address] Jacqueline Merritt, PALuz MarinaC [address] [place] [address] Health Maintenance Due Date Last Done Comments Kidney Health Evaluation 1943 Diabetes: Retinopathy Eye Exam 1961 Zoster Vaccines (1 of 2) 1993 Annual Medicare Wellness Visit 2008 RSV Immunization or 60+ Years (1 - 1-dose 75+ series) 2018 DTaP, Tdap and Td Vaccines (2 - Td or Tdap) 09/24/2022 09/24/2012 COVID-19 Vaccine ( season) 2024 09/03/2021, 02/01/2021, 01/04/2021 Hemoglobin A1C 07/19/2025 01/17/2025, 08/19, 10/27/2023, Additional history exists Lipid Panel 09/01/2025 09/01/2024 Pneumococcal Vaccine: 50+ Years Completed 07/23/2018, 07/21/2016, 06/07/2014 Dexa Scan [...] appropriate support at home upon discharge General Priscila Cortez, JOSH Medical Devices Implanted Type Area Propellant Assembler Device Identifier Shelf Expiration Date Model / Serial / Lot Pacemaker Pacemaker Right: Chest Procedures Procedure Name Priority Date/Time Associated Diagnosis Comments CBC W/DIFF AUTOMATED Routine 04/14/2025 2:10 PM CDT Cirrhosis of liver without ascites, unspecified hepatic cirrhosis type (CMS/HCC HHS/HCC) BASIC METABOLIC PANEL Routine 04/04/2025 12:53 PM CDT Anemia Chronic renal insufficiency, stage 3 (moderate) (CMS/HCC) CBC W/DIFF AUTOMATED Routine 04/04/2025 12:53 PM CDT Anemia Chronic renal insufficiency, stage 3 (moderate) (CMS/HCC) MG SCREENING W LUI RT DIGI Routine 03/30/2025 11:30 AM CDT Visit for screening mammogram COMPREHENSIVE METABOLIC PANEL Routine 03/21/2025 11:40 AM CDT Anemia Chronic renal insufficiency, stage 3 (moderate) (CMS/HCC) CBC W/DIFF AUTOMATED Routine 03/21/2025 11:40 AM CDT Anemia Chronic renal insufficiency, stage 3 (moderate) (CMS/HCC) BASIC METABOLIC PANEL Routine 03/14/2025 3:51 PM CDT Anemia Chronic renal insufficiency, stage 3 (moderate) (CMS/HCC) CBC W/DIFF AUTOMATED Routine 03/14/2025 3:51 PM CDT Anemia Chronic renal insufficiency, stage 3 (moderate) (CMS/HCC) USV AAA SCREENING Routine 03/07/2025 10: 05 AM CDT AAA (abdominal aortic aneurysm) FERRITIN Routine 03/07/2025 9:47 AM CDT Anemia Chronic renal insufficiency, stage 3 (moderate) (CMS/HCC) IRON SAT PANEL (IRON,IBC,%SAT) Routine 03/07/2025 9:47 AM CDT Anemia Chronic renal insufficiency, stage 3 (moderate) (CMS/HCC) COMPREHENSIVE METABOLIC PANEL Routine 03/07/2025 9:47 AM CDT Anemia Chronic renal insufficiency, stage 3 (moderate) (CMS/HCC) CBC W/DIFF AUTOMATED Routine 03/07/2025 9:47 AM CDT Anemia Chronic renal insufficiency, stage 3 (moderate) (CMS/HCC) COMPREHENSIVE METABOLIC PANEL Routine 03/04/2025 5:14 AM CDT CBC W/DIFF AUTOMATED Routine 03/04/2025 5:14 AM CDT POCT GLUCOSE - DOCKED DEVICE Routine 03/03/2025 8:54 PM CDT POCT GLUCOSE - DOCKED DEVICE Routine 03/03/2025 11:14 AM CDT XR CHEST PORTABLE STAT 03/02/2025 10: 22 PM CDT HC URINALYSIS AUTO W/MICRO STAT 03/02/2025 10:14 PM CDT PRO-BRAIN NATRIURETIC PEPTIDE STAT 03/02/2025 9:53 PM CDT BLOOD GAS, VENOUS STAT 03/02/2025 9:5 3 PM CDT MAGNESIUM STAT 03/02/2025 9:53 PM CDT TROPONIN, QUANT STAT 03/02/2025 9:53 PM CDT COMPREHENSIVE METABOLIC PANEL STAT 03/02/2025 9:53 PM CDT CBC W/DIFF AUTOMATED STAT 03/02/2025 9:53 PM CDT ECG 12-LEAD Routine 03/02/2025 9:41 PM CDT MAGNESIUM Routine 02/28/2025 1:36 PM CDT Leg pain COMPREHENSIVE METABOLIC PANEL Routine 02/28/2025 1:36 PM CDT Anemia Chronic renal insufficiency, stage 3 (moderate) (CMS/HCC) CBC W/DIFF AUTOMATED Routine 02/28/2025 1:36 PM CDT Anemia Chronic renal insufficiency, stage 3 (moderate) (CMS/HCC) POCT GLUCOSE - DOCKED DEVICE Routine 02/24/2025 9:31 PM CDT POCT GLUCOSE - DOCKED DEVICE Routine 02/24/2025 6:11 AM CDT COMPREHENSIVE METABOLIC PANEL Routine 02/24/2025 5:44 AM CDT CBC W/DIFF AUTOMATED Routine 02/24/2025 5:44 AM CDT POCT GLUCOSE - DOCKED DEVICE Routine 02/23/2025 7:33 PM CDT HOME O2 EVAL Routine 02/23/2025 7:42 AM CDT COMPREHENSIVE METABOLIC PANEL Routine 02/23/2025 4:36 AM CDT CBC W/DIFF AUTOMATED Routine 02/23/2025 4:36 AM CDT POCT GLUCOSE - DOCKED DEVICE Routine 02/22/2025 7:46 PM CDT OCCULT BLOOD, FECES Routine 02/22/2025 1 1:56 AM CDT POCT GLUCOSE - DOCKED DEVICE Routine 02/22/2025 5:15 AM CDT CBC W/DIFF AUTOMATED Routine 02/22/2025 4:51 AM CDT COMPREHENSIVE METABOLIC PANEL Routine 02/22/2025 4:51 AM CDT HEMOGLOBIN AND HEMATOCRIT TIMED 2024 9:05 PM CDT POCT GLUCOSE - DOCKED DEVICE Routine 02/21/2025 8:07 PM CDT TRANSFUSE RED BLOOD CELLS Routine 2024 4:19 PM CDT CBC W/DIFF AUTOMATED TIMED 02/21/2025 2:39 PM CDT TRANSFUSE RED BLOOD CELLS Routine 2024 9:42 AM CDT POCT GLUCOSE - DOCKED DEVICE Routine 02/21/2025 9:02 AM CDT IRON SAT PANEL (IRON,IBC,%SAT) Routine 02/21/2025 8:59 AM CDT MAGNESIUM Routine 02/21/2025 8:58 AM CDT COMPREHENSIVE METABOLIC PANEL STAT 02/21/2025 8:58 AM CDT CBC W/DIFF AUTOMATED STAT 02/21/2025 8:58 AM CDT IV PLACEMENT Routine 02/21/2025 1:38 AM CDT TRANSFUSE RED BLOOD CELLS STAT 2024 11:49 PM CDT XR CHEST PORTABLE STAT 02/20/2025 11: 01 PM CDT TYPE & SCREEN STAT 02/20/2025 10:51 PM CDT COMPREHENSIVE METABOLIC PANEL STAT 02/20/2025 10:51 PM CDT CBC W/DIFF AUTOMATED STAT 02/20/2025 10:51 PM CDT CRITICAL CARE Routine 02/20/2025 10:47 PM CDT ECG 12-LEAD Routine 02/20/2025 10:32 PM CDT CBC W/DIFF AUTOMATED Routine 02/20/2025 12:57 PM CDT Anemia CBC W/DIFF AUTOMATED Routine 02/16/2025 12:54 PM CDT Chronic renal insufficiency, stage 3 (moderate) (CMS/HCC) Anemia COMPREHENSIVE METABOLIC PANEL Routine 02/16/2025 12:54 PM CDT Chronic renal insufficiency, stage 3 (moderate) (CMS/HCC) Anemia TRANSFUSE RED BLOOD CELLS Routine 2024 8:28 PM CDT TYPE & SCREEN Routine 02/13/2025 4:37 PM CDT Symptomatic anemia HEMOGLOBIN AND HEMATOCRIT Routine 2024 4:37 PM CDT Symptomatic anemia COMPREHENSIVE METABOLIC PANEL Routine 02/13/2025 1:54 PM CDT Anemia Chronic renal insufficiency, stage 3 (moderate) (CMS/HCC) CBC W/DIFF AUTOMATED Routine 02/13/2025 1:54 PM CDT Anemia Chronic renal insufficiency, stage 3 (moderate) (CMS/HCC) CYSTOURETHROSCOPY 02/07/2025 7:5 4 AM CDT 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 CYTOLOGY GENERIC Routine 02/07/2025 12:0 0 AM CDT CBC W/DIFF AUTOMATED Routine 01/25/2025 5:12 PM CDT Anemia LIPID PANEL Routine 09/01/2024 9:30 AM [employer]ATE [employer] HAND Anemia DM (diabetes mellitus) (CMS/HCC HHS/HCC) HTN (hypertension) Hypothyroidism Hyperlipidemia COPD (chronic obstructive pulmonary disease) ([facility] HHS/HCC) SOB (shortness of breath) HEMOGLOBIN, GLYCOSYLATED Routine 024 9:30 AM [employer] HAND Anemia DM (diabetes mellitus) ([facility] HHS/HCC) HTN (hypertension) Hypothyroidism Hyperlipidemia COPD (chronic obstructive pulmonary disease) ([facility] HHS/HCC) SOB (shortness of breath) BONE DENSITY/DEXA Routine 04/15/2022 9:1 6 AM CDT Post-menopausal from Last 3 Months or Most Recently Relevant to Health Maintenance Results * (ABNORMAL) CBC W/DIFF AUTOMATED (04/14/2025 2:10 PM CDT) Only the most recent of18 resultswithin the time period is included. WBC 6.32 4.00 - 10.80 x10'3/uL 04/14/2025 2:15 PM CDT [facility] RBC 3.82(L) 4.10 - 5.40 x10'6/uL 04/14/2025 2:15 PM CDT [facility] HGB 11.0(L) 12.0 - 16.0 G/DL 04/14/2025 2:15 PM CDT [facility] HCT 36.4 36.0 - 47.0 % 04/14/2025 2:15 PM CDT [facility] MCV 95.3 78.0 - 100.0 FL 04/14/2025 2:15 PM CDT [facility] MCH 28.8 27.0 - 31.0 PG 04/14/2025 2:15 PM CDT [facility] MCHC 30.2(L) 33.0 - 36.0 G/DL 04/14/2025 2:15 PM CDT [facility] RDW 14.6(H) 11.5 - 14.5 % 04/14/2025 2:15 PM CDT [facility] PLT 208 150 - 350 x10'3/uL 04/14/2025 2:15 PM CDT [facility] MPV 11.3(H) 7.4 - 10.4 FL 04/14/2025 2:15 PM CDT [facility] CBC COMMENT NORMAL REFERENCE RANGE NOT ESTABLISHED FOR THE PROPORTIONAL LEUKOCYTE DIFFERENTIAL. 04/14/2025 2:15 PM CDT [facility] NEUTROPHILS % 69.1 % 04/14/2025 2:15 PM CDT [facility] LYMPHOCYTES % 17.7 % 04/14/2025 2:15 PM CDT [facility] MONOCYTES % 9.0 % 04/14/2025 2:15 PM CDT [facility] EOSINOPHILS % 2.8 % 04/14/2025 2:15 PM CDT [facility] BASOPHILS % 0.9 % 04/14/2025 2:15 PM CDT [facility] IMMATURE GRANS % 0.5 % 04/14/20 2:15 PM CDT [facility] NRBC % 0.0 % 04/14/2025 2:15 PM CDT [facility] ABS. NEUTROPHILS 4.36 1.60 - 8.30 x10'3/uL 04/14/2025 2:15 PM CDT [facility] ABS. LYMPHOCYTES 1.12 0.80 - 4.70 x10'3/uL 04/14/2025 2:15 PM CDT [facility] ABS. MONOCYTES 0.57 0.00 - 1.50 x10'3/uL 04/14/2025 2:15 PM CDT [facility] ABS. EOSINOPHILS 0.18 0.00 - 0.40 x10'3/uL 04/14/2025 2:15 PM CDT [facility] ABS. BASOPHILS 0.06 0.00 - 0.20 x10'3/uL 04/14/2025 2:15 PM CDT [facility] ABS. IMMATURE GRANULOCYTES 0.03 0.00 - 0.03 x10'3/uL 04/14/2025 2:15 PM CDT [facility] ABS. NUCLEATED RBC'S 0.00 0.00 - 0.01 x10'3/uL 04/14/2025 2:15 PM CDT [facility] 04/14/2025 2:10 PM CDT Natalia Pino PHYSICIAN INDUSTRIAL LABORATORY Final Re sult [facility] [address] [place] [address], * (ABNORMAL) BASIC METABOLIC PANEL (04/04/2025 12:53 PM CDT) Only the most recent of2 resultswithin the time period is included. SODIUM S/P/B 143 136 - 145 MMOL/L 04/04/2025 1:09 PM CDT [facility] POTASSIUM S/P/B 4.3 3.5 - 5.1 MMOL/L 04/04/2025 1:09 PM CDT [facility] CHLORIDE S/P/B 103 98 - 107 MMOL/L 04/04/2025 1:09 PM CDT [facility] CO2 33.6(H) 21.0 - 32.0 MMOL/L 04/04/2025 1:09 PM CDT [facility] GLUCOSE 123(H) 70 - 99 MG/DL 04/04/2025 1:09 PM CDT [facility] Comment: FASTING GLUCOSE 100 TO 125 MG/DL IS CONSISTENT WITH IMPAIRED FASTING GLUCOSE. FASTING GLUCOSE >125 MG/DL IS CONSISTENT WITH DIABETES. RANDOM GLUCOSE >200 MG/DL WITH HYPERGLYCEMIC SYMPTOMS IS CONSISTENT WITH DIABETES. PER ADA GUIDELINES BUN 32(H) 6 - 24 MG/DL 04/04/2025 1:09 PM CDT [facility] CREATININE S/P/B 1.67(H) 0.55 - 1.02 MG/DL 04/04/2025 1:09 PM CDT [facility] CALCIUM S/P/B 9.3 8.4 - 10.5 MG/DL 04/04/2025 1:09 PM CDT [facility] ANION GAP 6.4 5.0 - 15.0 MMOL/L 04/04/2025 1:09 PM CDT [facility] OSMOLALITY (CALC) 304 MOSM/KG 025 1:09 PM CDT [facility] Comment:REFERENCE RANGE NOT ESTABLISHED GFR ESTIMATE 31(L) >89 ML/MIN/1. 73 M2 04/04/2025 1:09 PM CDT [facility] GFR NOTES GFR REFERENCE S: 04/04/2025 1:09 PM CDT [facility] Comment: THE ESTIMATED GFR IS CALCULATED [...] ml/min/1.73 m2 G5,KIDNEY FAILURE: <15 ml/min/1.73 m2 04/04/2025 12:5 3 PM CDT Lopez Pool MD LABORATORY Final Result [facility] [address] [place] [address], * MG SCREENING W LUI RT DIGI (03/30/2025 11:30 AM CDT) Anatomical Region Laterality Modality Breast Right Mammography 03/30/2025 11:4 1 AM CDT Impressions 03/30/2025 11:42 AM CDT IMPRESSION: No suspicious change since the previous exams. Recommendation: 1: Routine Screening Right in 1 Year Assessment: ACR BI-RADS 2 - BENIGN FINDING(S) Ordered By: ALIS LIMA Interpreted By: Jamie Carlos MD, 03/30/2025 11:41 AM Narrative 03/30/2025 11:42 AM [address]T [address] [place] [id number] Examination: Digital right screening mammogram with CAD. Clinical history: Asymptomatic patient presents for routine screening. Prior left mastectomy for cancer. Comparison: 03/29/2024, 04/06/2023, 04/04/2022. Technique: CC and MLO right digital mammograms. The exam was interpreted with the use of a computer-aided detection (CAD) system. Additional 3-D tomosynthesis images were acquired. Tissue density: The breasts are heterogeneously dense which may obscure small masses. Findings: The breast tissue is heterogeneously dense. The dense tissue may obscure some lesions mammographically. Benign-appearing calcification noted. Pacemaker generator remains in place. No suspicious mass, microcalcification or area of architectural distortion can be identified. From a mammographic standpoint, routine followup in one year would seem adequate. Alis Liam MD MAMMO Final Result * (ABNORMAL) COMPREHENSIVE METABOLIC PANEL (03/21/2025 11:40 AM CDT) Only the most recent of12 resultswithin the time period is included. SODIUM S/P/B 140 136 - 145 MMOL/L 03/21/2025 12:03 PM CDT [facility] POTASSIUM S/P/B 5.0 3.5 - 5.1 MMOL/L 03/21/2025 12:03 PM CDT [facility] CHLORIDE S/P/B 103 98 - 107 MMOL/L 03/21/2025 12:03 PM CDT [facility] CO2 31.0 21.0 - 32.0 MMOL/L 03/21/2025 12:03 PM CDT [facility] GLUCOSE 172(H) 70 - 99 MG/DL 03/21/2025 12:03 PM CDT [facility] Comment: FASTING GLUCOSE 100 TO 125 MG/DL IS CONSISTENT WITH IMPAIRED FASTING GLUCOSE. FASTING GLUCOSE >125 MG/DL IS CONSISTENT WITH DIABETES. RANDOM GLUCOSE >200 MG/DL WITH HYPERGLYCEMIC SYMPTOMS IS CONSISTENT WITH DIABETES. PER ADA GUIDELINES BUN 30(H) 6 - 24 MG/DL 03/21/2025 12:03 PM [facility] CREATININE S/P/B 1.77(H) 0.55 - 1.02 MG/DL 03/21/2025 12:03 PM [facility] CALCIUM S/P/B 9.7 8.4 - 10.5 MG/DL 03/21/2025 12:03 PM [facility] BILIRUBIN TOTAL S/P/B 0.2 0.2 - 1.0 MG/DL 03/21/2025 12:03 PM [facility] Comment: THIS ASSAY IS NOT RECOMMENDED FOR PATIENTS UNDERGOING TREATMENT WITH ELTROMBOPAG DUE TO THE POTENTIAL FOR FALSELY ELEVATED RESULTS. ALKALINE PHOSPHATASE S/P/B 167(H) 55 - 142 U/L 03/21/2025 12:03 PM [facility] AST 51(H) 15 - 37 U/L 03/21/2025 12:03 PM [facility] ALT 38 14 - 59 U/L 03/21/2025 12:03 PM [facility] TOTAL PROTEIN S/P/B 6.8 6.4 - 8.2 G/DL 03/21/2025 12:03 PM [facility] ALBUMIN S/P/B 3.1(L) 3.4 - 5.0 G/DL 03/21/2025 12:03 PM [facility] ANION GAP 6.0 5.0 - 15.0 MMOL/L 03/21/2025 12:03 PM [facility] OSMOLALITY (CALC) 300 MOSM/KG 025 12:03 PM [facility] Comment:REFERENCE RANGE NOT ESTABLISHED GFR ESTIMATE 29(L) >89 ML/MIN/1. 73 M2 03/21/2025 12:03 PM [facility] GFR NOTES GFR REFERENCE S: 03/21/2025 12:03 PM [facility] Comment: THE ESTIMATED GFR IS CALCULATED [...] ml/min/1.73 m2 G5,KIDNEY FAILURE: <15 ml/min/1.73 m2 03/21/2025 11:4 0 AM CDT us Jacqueline Merritt PA-C LABORATORY Final Resul t [facility] [address] [place] [address], * USV AAA SCREENING (03/07/2025 10:05 AM CDT) Anatomical Region Laterality Modality NA Ultrasound 03/07/2025 10:4 3 AM CDT Impressions 03/07/2025 12:39 PM CDT IMPRESSION: Stable 3.3 cm distal abdominal aortic aneurysm. Ordered By: CHRIS KOENIG Interpreted By: Jamie Carlos MD, 03/07/2025 10:43 AM Narrative 03/07/2025 12:39 PM CDT [address] [place] [address] Examination: Ultrasound of the abdominal aorta. Exam time: 0905 hours. Clinical history: Surveillance of abdominal aortic aneurysm. Comparison: CT of the abdomen and pelvis, 03/06/2024. Technique: Grayscale and color Doppler images including spectral analysis. Findings: The examination is somewhat limited technically due to bowel gas and patient body habitus. The proximal and mid abdominal aorta appear normal in caliber. There is redemonstrated distal abdominal aortic aneurysm measuring 3.3 cm in greatest diameter, stable allowing for the different modalities. There are no signs of leakage. The iliac bifurcation appears normal. There are triphasic waveforms on Doppler. Procedure Note Jamie Carlos MD - 03/07/2025 [facility] [address] [place] [id number] Examination: Ultrasound of the abdominal aorta. Exam time: 0905 hours. Clinical history: Surveillance of abdominal aortic aneurysm. Comparison: CT of the abdomen and pelvis, 03/06/2024. Technique: Grayscale and color Doppler images including spectralanalysis. Findings: The examination is somewhat limited technically due to bowel gasand patient body habitus. The proximal and mid abdominal aorta appearnormal in caliber. There is redemonstrated distal abdominal aorticaneurysm measuring 3.3 cm in greatest diameter, stable allowing for thedifferent modalities. There are no signs of leakage. The iliac bifurcationappears normal. There are triphasic waveforms on Doppler. IMPRESSION: Stable 3.3 cm distal abdominal aortic aneurysm. Ordered By: CHRIS KOENIG Interpreted By: Jamie Carlos MD, 03/07/2025 10:43 AM us Chris Koenig PHYSICIAN INDUSTRIAL US VAS Final Result * (ABNORMAL) IRON SATURATION PNL (FE/TIBC/SAT) (03/07/2025 9:47 AM CDT) Only the most recent of2 resultswithin the time period is included. IRON 36(L) 50 - 170 MCG/DL 03/07/2025 10:51 AM CDT [facility] IRON BINDING CAPACITY 357 250 - 450 MCG/DL 03/07/2025 10:51 AM CDT [facility] IRON SATURATION 10 % 10:51 AM CDT [facility] Comment:REFERENCE RANGE NOT ESTABLISHED 03/07/2025 9:47 AM CDT us Lopez Pool MD LABORATORY Final Result [facility] [address] [place] [address], [place] [phone] * FERRITIN (03/07/2025 9:47 AM CDT) FERRITIN 83.8 8 - 252 NG/ML 03/07/2025 11:01 AM CDT [facility] 03/07/2025 9:47 AM CDT us Lopez Pool MD LABORATORY Final Result Performing Organization Address [facility] Co de Phone Number [facility] [address] [place] [address], [place] [phone] * (ABNORMAL) POCT glucose (03/03/2025 8:54 PM CDT) Only the most recent of9 resultswithin the time period is included. GLUCOSE POC 232(H) 70 - 99 MG/DL 03/03/2025 9:04 PM CDT [facility] 03/03/2025 8:54 PM CDT us Lopez Pool MD POCT ORDERABLES - DEVICE Final Result Performing Organization Address [facility] de Phone Number [address] [address], [place] [phone] * XR CHEST PORTABLE (03/02/2025 10:22 PM CDT) Only the most recent of2 resultswithin the time period is included. Anatomical Region Laterality Modality Chest Radiographic Zeinab ging 03/02/2025 11:1 8 PM CDT Impressions 03/02/2025 11:26 PM CDT IMPRESSION: 1. Mild hazy opacities in the lower lungs suggesting small bilateral pleural effusions and atelectasis. 2. Mild cardiomegaly. Referred By: Interpreted By: Richi Rangel DO, 03/02/2025 11:18 PM Narrative 03/02/2025 11:[address] [place] [id number] Examination: XR CHEST PORTABLE Exam time: 03/02/2025 10:22 PM Clinical history: Shortness of breath. Comparison: Chest radiographs 02/20/2025, 12/19/2024, 08/03/2024, 10/25/2023, 09/03/2022, 06/02/2022, and 03/01/2022. Technique: AP portable radiograph of the chest. Findings: A 2-lead pacemaker projects over the right axilla with lead tips projecting over the right atrium and right ventricle. There is mild cardiomegaly appearing similar to the prior examination. A left atrial appendage occlusion device is redemonstrated. Pulmonary vasculature is appropriately distributed. There are mild hazy opacities in the lower lungs suggesting small bilateral pleural effusions and atelectasis. No pneumothorax is seen. Surgical clips are noted in the left axilla. Procedure Note Richi Rangel, - 03/02/[address] [place] [id number] Examination: XR CHEST PORTABLE Exam time: 03/02/2025 10:22 PM Clinical history: Shortness of breath. Comparison: Chest radiographs 02/20/2025, 12/19/2024, 08/03/2024, 10/25/2023,09/03/2022, 06/02/2022, and 03/01/2022. Technique: AP portable radiograph of the chest. Findings: A 2-lead pacemaker projects over the right axilla with lead tipsprojecting over the right atrium and right ventricle. There is mildcardiomegaly appearing similar to the prior examination. A left atrialappendage occlusion device is redemonstrated. Pulmonary vasculature isappropriately distributed. There are mild hazy opacities in the lowerlungs suggesting small bilateral pleural effusions and atelectasis. Nopneumothorax is seen. Surgical clips are noted in the left axilla. IMPRESSION: 1. Mild hazy opacities in the lower lungs suggesting small bilateralpleural effusions and atelectasis. 2. Mild cardiomegaly. Referred By: Interpreted By: Richi Rangel DO, 03/02/2025 11:18 PM Sean Dai MD GENERAL IMAGING Final Result * (ABNORMAL) URINALYSIS (03/02/2025 10:14 PM CDT) COLOR (U) YELLOW 03/02/2025 10:24 PM CDT [facility] TRANSPARENCY CLEAR 03/02/2025 10:24 PM CDT [facility] SPECIFIC GRAVITY (U) 1.015 1.000 - 1.025 03/02/2025 10:24 PM CDT [facility] U PH 6.0 5.0 - 8.0 03/02/2025 10:24 PM CDT [facility] LEUKOCYTES (U) NEGATIVE NEGATIVE 03/02/2025 10:24 PM CDT [facility] NITRITES NEGATIVE NEGATIVE 03/02/2025 10:24 PM CDT [facility] PROTEIN RANDOM (U) NEGATIVE NEGATIVE 03/02/2025 10:24 PM CDT [facility] GLUCOSE (U) NEGATIVE NEGATIVE 03/02/2025 10:24 PM CDT [facility] KETONES MG/DL (U) NEGATIVE NEGATIVE 03/02/2025 10:24 PM CDT [facility] UROBILINOGEN 1.0(H) <1.0 EU/DL 03/02/2025 10:24 PM CDT [facility] BILIRUBIN (U) NEGATIVE NEGATIVE 03/02/2025 10:24 PM CDT [facility] BLOOD (U) 3+(A) NEGATIVE 03/02/2025 10:24 PM CDT [facility] WBC/HPF 0-5 0 - 5 /HPF 03/02/2025 10:24 PM CDT [facility] RBC/HPF 5-10(A) 0 - 5 /HPF 03/02/2025 10:24 PM CDT [facility] EPI/LPF OCCASIONAL /LPF 03/02/2025 10:24 PM CDT [facility] BACTERIA (U) 3+ /HPF 03/02/2025 10:24 PM CDT [facility] MUCUS PRESENT 03/02/2025 10:24 PM CDT [facility] OTHER CASTS (U) HYALINE /LPF 10:24 PM CDT [facility] Comment:0-5 COMMENT (U) DUE TO LOW VOLUME, MICROSCOPIC PERFORMED ON UNSPUN SPECIMEN. 03/02/2025 10:24 PM CDT [facility] URINE SPECIMEN OBTAINED BY CLEAN CATCH PROCEDURE / Unknown 03/02/2025 10:14 PM CDT us Sean Dai MD URINE ORDERABLES Final Result Performing Organization Address [facility] Co de Phone Number [facility] [place] [address], * (ABNORMAL) PRO-BRAIN NATRIURETIC PEPTIDE (03/02/2025 9:53 PM CDT) PRO-B TYPE NATRIURETIC PEPTIDE 1,454(H) <450 PG/ML 03/02/2025 10:26 PM CDT [facility] Comment: CUT POINTS ESTABLISHED BY INTERNATIONAL [...] OF 89% AND 72% FOR ACUTE CHF. 03/02/2025 9:53 PM CDT us Sean Dai MD LABORATORY Final Result Performing Organization Address [facility]/ZIP Co de Phone Number [facility] [address] [place] [address], * (ABNORMAL) Blood gas, venous (03/02/2025 9:53 PM CDT) PH VENOUS 7.40 7.32 - 7.43 03/02/2025 10:08 PM CDT [facility] PCO2 VENOUS 53.0 MMHG 03/02/2025 10:08 PM CDT [facility] Comment:NO REFERENCE RANGE H BEEN ESTABLISHED PO2 VENOUS 33.0 MM HG 03/02/2025 10:08 PM CDT [facility] Comment:NO REFERENCE RANGE H BEEN ESTABLISHED TOTAL CO2 VENOUS 34.4(H) 22.0 - 26.0 MMOL/L 03/02/2025 10:08 PM CDT [facility] BASE EXCESS VENOUS 6.5 MMOL/L 03/02/2025 10:08 PM CDT [facility] Comment:NO REFERENCE RANGE H BEEN ESTABLISHED O2 SAT VENOUS 64 % 03/02/2025 10:08 PM CDT [facility] Comment:NO REFERENCE RANGE H BEEN ESTABLISHED BICARB VENOUS 32.8(H) 22.0 - 29.0 MMOL/L 03/02/2025 10:08 PM CDT [facility] O2 ADMIN VENOUS 2L 10:04 PM CDT [facility] 03/02/2025 9:53 PM CDT us Sean Dai MD LABORATORY Final Result Performing Organization Address City/[facility]/ZIP Co de Phone Number [facility] [address] [place] [address], * TROPONIN, QUANT (03/02/2025 9:53 PM CDT) TROPONIN I HIGH SENSITIVITY 17 0 - 51 ng/L 03/02/2025 10:26 PM CDT [facility] 03/02/2025 9:53 PM CDT us Sean Dai MD LABORATORY Final Result [facility] [address] [place] [address], * MAGNESIUM (03/02/2025 9:53 PM CDT) Only the most recent of3 resultswithin the time period is included. MAGNESIUM 1.9 1.8 - 2.4 MG/DL 03/02/2025 10:26 PM CDT [facility] 03/02/2025 9:53 PM CDT Sean Dai MD LABORATORY Final Result [facility] [address] [place] [address], * ECG 12 lead (03/02/2025 9:41 PM CDT) Only the most recent of2 resultswithin the time period is included. 03/02/2025 9:41 PM CDT Narrative [facility] - 03/03/2025 5:04 AM CDT [address] [place] [id number] Test Date: 2025-03-02 Pat Name: WALKER HILLIARD Department: 3 Room: [facility] Gender: Female 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1945 Requested By: SEAN DAI Order Number: [id number] Reading MD: Shellie West Measurements Intervals [place] Rate: 77 P: 0 NC: 0 QRS: -48 QRSD: 109 T: -57 QT: 399 QTc: 452 Interpretive Statements ATRIAL FIBRILLATION ELECTRONIC VENTRICULAR PACEMAKER -- CONTOUR ANALYSIS BASED ON INTRINSIC RHYTHM LOW QRS VOLTAGE IN EXTREMITY LEADS PATTERN CONSISTENT WITH PULMONARY DISEASE LEFT ANTERIOR FASCICULAR BLOCK MINIMAL ST DEPRESSION Procedure Note Shellie West MD - 03/03/2025 [address] [place] [id number] Test Date: 2025-03-02 Pat Name: WALKER HILLIARD Department: 3 Room: 324 Gender: Female 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1945 Requested By: SEAN DAI Order Number: [id number] Reading MD: Shellie West Measurements Intervals [place] Rate: 77 P: 0 NC: 0 QRS: -48 QRSD: 109 T: -57 QT: 399 QTc: 452 Interpretive Statements ATRIAL FIBRILLATION ELECTRONIC VENTRICULAR PACEMAKER -- CONTOUR ANALYSIS BASED ON INTRINSIC RHYTHM LOW QRS VOLTAGE IN EXTREMITY LEADS PATTERN CONSISTENT WITH PULMONARY DISEASE LEFT ANTERIOR FASCICULAR BLOCK MINIMAL ST DEPRESSION Sean Dai MD ECG ORDERABLES Final Result [facility] * (ABNORMAL) OCCULT BLOOD, FECES (02/22/2025 11:56 AM CDT) OCCULT BLOOD FECAL 3+(A) NEGATIVE 02/22/2025 12:17 PM CDT [facility] STOOL SPECIMEN / Unknown 02/22/2025 11:56 AM CDT Ruthie Scanlon [facility]- BODY FLUIDS AND STOOLS OR DERABLES Final Result Performing Organization Address [facility]/ZIP Co de Phone Number [facility] [place] [address], * (ABNORMAL) HEMOGLOBIN AND HEMATOCRIT (02/21/2025 9:05 PM CDT) Only the most recent of2 resultswithin the time period is included. HGB 7.8(L) 12.0 - 16.0 G/DL 02/21/2025 9:11 PM CDT [facility] HCT 26.3(L) 36.0 - 47.0 % 02/21/2025 9:11 PM CDT [facility] 02/21/2025 9:05 PM CDT Ruthie Scanlon [facility]- LABORATORY Final Res ult [facility] [address] [place] [address], * TRANSFUSE RED BLOOD CELLS (02/21/2025 7:04 PM CDT) Only the most recent of4 resultswithin the time period is included. Lopez Pool MD NURSING TREATMENT ORDERABLES - BLOOD ADMIN Final Result * Peripheral IV (02/21/2025 1:38 AM CDT) Narrative Rosalba Avery CRNA - 02/21/2025 1:38 AM CDT Rosalba Avery CRNA 02/21/2025 1:38 AM Peripheral IV Date/Time: 02/21/2025 1:38 AM Performed by: Rosalba Avery CRNA Authorized by: Rosalba Avery CRNA Patient Location: Floor Placed Outside of This Facility?: No Size (Guage): 20 G Orientation: Right Location: Basilic Insertion Attempts: 2 Ultrasound-guided Placement: Yes Ultrasound was used to identify the vessel. It was assessed and patent. Ultrasound was used to visualized vascular needle entry into the vessel and The selected vessel appeared anatomically normal and there were no apparent abnormal findings Patient Tolerance: Tolerated well Rosalba Avery CRNA [place] ANESTHESIA Final Result * TYPE & SCREEN (02/20/2025 10:51 PM CDT) Only the most recent of2 resultswithin the time period is included. UNITS ORDERED 2 02/21/2025 3:54 AM CDT [facility] ABO/RH O NEGATIVE 02/20/2025 11:37 PM CDT [facility] ANTIBODY SCREEN NEGATIVE 11:37 PM CDT [facility] SAMPLE EXPIRATION 02/23/2025,2359 02/20/2025 11:37 PM CDT [facility] BLOOD UNIT NUMBER [id number] 02/20/2025 11:37 PM CDT [facility] PRODUCT: PC LEUKOPOOR 02/20/2025 11:37 PM CDT [facility] UNIT DIVISION 00 02/20/2025 11:37 PM CDT [facility] BLOOD UNIT STATUS TRANSFUSED,FINAL 02/21/2025 1:30 AM CDT [facility] ISSUE DATE/TIME [id number] 025 1:30 AM CDT [facility] PRODUCT CODE [id number] 02/21/2025 1:30 AM CDT [facility] ABO/RH Unit O NEG 02/21/2025 1:30 AM CDT [facility] ABO/RH UNIT ISBT CODE [id number] 02/21/2025 1:30 AM CDT [facility] BLOOD UNIT EXPIRATION DATE 02/21/2025 1:30 AM CDT [facility] TRANSFUSION STATUS OK TO TRANSFUSE 02/20/2025 11:37 PM CDT [facility] CROSSMATCH COMPATIBLE 02/20/2025 11:37 PM CDT [facility] BLOOD UNIT NUMBER [id number] 02/21/2025 3:54 AM CDT [facility] PRODUCT: PC LEUKOPOOR 02/21/2025 3:54 AM CDT [facility] UNIT DIVISION 00 02/21/2025 3:54 AM CDT [facility] BLOOD UNIT STATUS TRANSFUSED,FINAL 02/22/2025 1:41 AM CDT [facility] ISSUE DATE/TIME [id number] 025 1:41 AM CDT [facility] PRODUCT CODE [id number] 02/22/2025 1:41 AM CDT [facility] ABO/RH Unit O NEG 02/22/2025 1:41 AM CDT [facility] ABO/RH UNIT ISBT CODE [id number] 02/22/2025 1:41 AM CDT [facility] BLOOD UNIT EXPIRATION DATE [id number] 02/22/2025 1:41 AM CDT [facility] TRANSFUSION STATUS OK TO TRANSFUSE 02/21/2025 3:54 AM CDT [facility] CROSSMATCH COMPATIBLE 02/21/2025 3:54 AM CDT [facility] BLOOD UNIT NUMBER [id number] 02/21/2025 3:45 PM CDT [facility] PRODUCT: PC LEUKOPOOR 02/21/2025 3:45 PM CDT [facility] UNIT DIVISION 00 02/21/2025 3:45 PM CDT [facility] BLOOD UNIT STATUS TRANSFUSED,FINAL 02/22/2025 1:41 AM CDT [facility] ISSUE DATE/TIME [id number] 1:41 AM CDT [facility] PRODUCT CODE [id number] 02/22/2025 1:41 AM CDT [facility] ABO/RH Unit O NEG 02/22/2025 1:41 AM CDT [facility] ABO/RH UNIT ISBT CODE 9500 02/22/2025 1:41 AM CDT [facility] BLOOD UNIT EXPIRATION DATE [id number] 02/22/2025 1:41 AM CDT [facility] TRANSFUSION STATUS OK TO TRANSFUSE 02/21/2025 3:45 PM CDT [facility] CROSSMATCH COMPATIBLE 02/21/2025 3:45 PM CDT [facility] 02/20/2025 10:5 1 PM CDT Ady Cardona DO BLOOD BANK TEST ORDERABLES Fin al Result [facility] [address] [place] [phone], * Critical Care (02/20/2025 10:47 PM CDT) Narrative Ady Cardona DO - 02/20/2025 10:47 PM CDT Ady Cardona DO 02/22/2025 4:53 PM Critical Care Performed by: Ady Cardona DO Authorized by: Lopez Pool MD Critical care provider statement: Critical care time (minutes): 35 Critical care start time: 02/20/2025 10:30 PM Critical care end time: 02/20/2025 11:05 PM Critical care time was exclusive of: Separately billable procedures and treating other patients Critical care was necessary to treat or prevent imminent or life-threatening deterioration of the following conditions: Circulatory failure Critical care was time spent personally by me on the following activities: Blood draw for specimens, development of treatment plan with patient or surrogate, discussions with consultants, evaluation of patient's response to treatment, examination of patient, ordering and performing treatments and interventions, ordering and review of laboratory studies, ordering and review of radiographic studies, pulse oximetry, re-evaluation of patient's condition and review of old charts I assumed direction of critical care for this patient from another provider in my specialty: no Care discussed with: admitting provider us Lopez Pool MD PROCEDURE/MINOR SURGICAL ORDER KE Final Result * CYTOLOGY GENERIC (02/07/2025 12:00 AM CDT) CYTOLOGY OTHER [facility] Department of Laboratory Medicine [address] [place] [phone] , extension [phone] Pathology Report Non-gynecologic Cytology Report Name: WALKER HILLIARD Specimen #: [id number] Age: 7 1945 (Age: 79) Location: [facility] Sex: F Procedure Date: 02/07/2025 [facility] #: [id number] Date Received: 02/07/2025 Date Reported: 02/09/2025 Provider: LORIN CONTRERAS III, MD Source: URINE, VOIDED 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 STAINS: Papanicolaou Initial cytologic screening, interpretation, and sign out were performed at [facility], [address] [place] [address]. Electronically Signed Out SALAZAR NEVAREZ MD [facility] URINE URINE SPECIMEN FROM URETHRA / Unknown 02/07/2025 8:04 AM CDT Lorin Contreras III, MD PATHOLOGY/CYTOLOGY ORDER KE Final Result Performing Organization Address City/[facility]/ZIP Co de Phone Number [facility] [address] [place] [address], [place] [phone] * LIPID PANEL (09/01/2024 9:30 AM PLATE MILL MILL HAND) CHOLESTEROL 233 MG/DL 09/02/2024 1:35 PM PLATE MILL MILL HAND [facility] Comment:BORDERLINE HIGH: 200 -239 TRIGLYCERIDES 278 MG/DL 09/02/2024 1:35 PM PLATE MILL MILL HAND [facility] Comment:200-499 HIGH HDL 51 >49 MG/DL 09/02/2024 1:35 PM PLATE MILL MILL HAND [facility] LDL-C 126 MG/DL 09/02/2024 1:35 PM PLATE MILL MILL HAND [facility] Comment:100-129 NEAR OR ABOV E OPTIMAL VLDL CALCULATION 56 MG/DL 09/02/20 1:35 PM PLATE MILL MILL HAND [facility] Comment:REFERENCE RANGE NOT ESTABLISHED CHOL/HDL RATIO 4.6 09/02/2024 1:35 PM PLATE MILL MILL HAND [facility] Comment:REFERENCE RANGE NOT ESTABLISHED LDL/HDL 2.5 09/02/2024 1:35 PM PLATE MILL MILL HAND [facility] Comment:REFERENCE RANGE NOT ESTABLISHED NON HDL CHOLESTEROL 182 MG/DL 09/02/2024 1:35 PM PLATE MILL MILL HAND [facility] Comment:REFERENCE RANGE NOT ESTABLISHED 09/01/2024 9:30 AM PLATE MILL MILL HAND Lopez Pool MD LABORATORY Final Result Performing Organization Address City/[facility]/ZIP Co de Phone Number [facility] [address] [place] [address], [place] [phone] * BONE DENSITY/DEXA (04/15/2022 9:16 AM CDT) [...] Recently Relevant to Health Maintenance Insurance MEDICARE [facility] MEDICAID Advance Directives Documents on File Type Date Recorded Patient Fittings Tightener Expl anation Power of Business Intelligence Etl Developer Advance Directives and Living Will 12/21/2024 9:03 [...] Living Will 01/02/2018 SHORT FORM POWER OF M1A1 TANK CREWMAN Advance Directives and Living Will 01/02/2018 ADVANCE DIRECTIVE Advance Directives and Living Will 01/02/2018 ADVANCE DIRECTIVE Advance Directives and Living Will 01/02/2018 ADVANCE DIRECTIVE Advance Directives and Living Will 01/02/2018 SHORT FORM POWER OF M1A1 TANK CREWMAN Advance Directives and Living Will 01/02/2018 ADVANCE DIRECTIVE Advance Directives and Living Will 01/02/2018 ADVANCE DIRECTIVE Advance Directives and Living Will 01/02/2018 ADVANCE DIRECTIVE Advance Directives and Living Will 01/02/2018 SHORT FORM POWER OF M1A1 TANK CREWMAN Advance Directives and Living Will 09/08/2017 ADVANCE DIRECTIVE Advance Directives and Living Will 09/08/2017 ADVANCE DIRECTIVE Advance Directives and Living Will 09/08/2017 ADVANCE DIRECTIVE Advance Directives and Living Will 09/08/2017 ADVANCE DIRECTIVE Advance Directives and Living Will 09/08/2017 SHORT FORM POWER OF M1A1 TANK CREWMAN Advance Directives and Living Will 06/18/2015 ADVANCE DIRECTIVE Advance Directives and Living Will 06/18/2015 ADVANCE DIRECTIVE Advance Directives and Living Will 06/18/2015 ADVANCE DIRECTIVE Advance Directives and Living Will 06/18/2015 ADVANCE DIRECTIVE Advance Directives and Living Will 06/18/2015 SHORT FORM POWER OF M1A1 TANK CREWMAN Advance Directives and Living Will 06/05/2015 ADVANCE DIRECTIVE Advance Directives and Living Will 06/05/2015 ADVANCE DIRECTIVE Advance Directives and Living Will 06/05/2015 ADVANCE DIRECTIVE Advance Directives and Living Will 06/05/2015 ADVANCE DIRECTIVE Advance Directives and Living Will 06/05/2015 SHORT FORM POWER OF M1A1 TANK CREWMAN Advance Directives and Living Will 05/28/2015 ADVANCE DIRECTIVE Advance Directives and Living Will 05/28/2015 ADVANCE DIRECTIVE Advance Directives and Living Will 05/28/2015 ADVANCE DIRECTIVE Advance Directives and Living Will 05/28/2015 ADVANCE DIRECTIVE Advance Directives and Living Will 05/28/2015 SHORT FORM POWER OF M1A1 TANK CREWMAN Advance Directives and Living Will 05/09/2015 ADVANCE DIRECTIVE Advance Directives and Living Will 05/09/2015 ADVANCE DIRECTIVE Advance Directives and Living Will 05/09/2015 ADVANCE DIRECTIVE Advance Directives and Living Will 05/09/2015 ADVANCE DIRECTIVE Advance Directives and Living Will 05/09/2015 SHORT FORM POWER OF M1A1 TANK CREWMAN Advance Directives and Living Will 05/07/2015 ADVANCE DIRECTIVE Advance Directives and Living Will 05/07/2015 ADVANCE DIRECTIVE Advance Directives and Living Will 05/07/2015 ADVANCE DIRECTIVE Advance Directives and Living Will 05/07/2015 ADVANCE DIRECTIVE Advance Directives and Living Will 05/07/2015 SHORT FORM POWER OF M1A1 TANK CREWMAN Advance Directives and Living Will 05/02/2015 ADVANCE DIRECTIVE Advance Directives and Living Will 05/02/2015 ADVANCE DIRECTIVE Advance Directives and Living Will 05/02/2015 ADVANCE DIRECTIVE Advance Directives and Living Will 05/02/2015 ADVANCE DIRECTIVE Advance Directives and Living Will 05/02/2015 SHORT FORM POWER OF M1A1 TANK CREWMAN Advance Directives and Living Will 04/25/2015 ADVANCE DIRECTIVE Advance Directives and Living Will 04/25/2015 ADVANCE DIRECTIVE Advance Directives and Living Will 04/25/2015 ADVANCE DIRECTIVE Advance Directives and Living Will 04/25/2015 SHORT FORM POWER OF M1A1 TANK CREWMAN Advance Directives and Living Will 04/23/2015 12:00 AM POWER OF M1A1 TANK CREWMAN Advance Directives and Living Will 04/17/2015 12:00 AM POWER OF M1A1 TANK CREWMAN Advance Directives and Living Will 04/16/2015 ADVANCE DIRECTIVE Advance Directives and Living Will 04/16/2015 ADVANCE DIRECTIVE Advance Directives and Living Will 04/16/2015 ADVANCE DIRECTIVE Advance Directives and Living Will 04/16/2015 SHORT FORM POWER OF M1A1 TANK CREWMAN Advance Directives and Living Will 04/12/2015 ADVANCE DIRECTIVE Advance Directives and Living Will 04/12/2015 ADVANCE DIRECTIVE Advance Directives and Living Will 04/12/2015 ADVANCE DIRECTIVE Advance Directives and Living Will 04/12/2015 ADVANCE DIRECTIVE Advance Directives and Living Will 04/12/2015 SHORT FORM POWER OF M1A1 TANK CREWMAN Advance Directives and Living Will 03/14/2015 ADVANCE DIRECTIVE Advance Directives and Living Will 03/14/2015 ADVANCE DIRECTIVE Advance Directives and Living Will 03/14/2015 ADVANCE DIRECTIVE Advance Directives and Living Will 03/14/2015 SHORT FORM POWER OF M1A1 TANK CREWMAN Advance Directives and Living Will 03/04/2015 ADVANCE DIRECTIVE Advance Directives and Living Will 03/04/2015 ADVANCE DIRECTIVE Advance Directives and Living Will 03/04/2015 ADVANCE DIRECTIVE Advance Directives and Living Will 03/04/2015 SHORT FORM POWER OF M1A1 TANK CREWMAN Advance Directives and Living Will 02/27/2015 ADVANCE DIRECTIVE Advance Directives and Living Will 02/27/2015 ADVANCE DIRECTIVE Advance Directives and Living Will 02/27/2015 ADVANCE DIRECTIVE Advance Directives and Living Will 02/27/2015 SHORT FORM POWER OF M1A1 TANK CREWMAN Advance Directives and Living Will 02/06/2015 ADVANCE [...] and Living Will 05/11/2014 ADVANCE DIRECTIVE * Full Code (Latest Code Status on File) Date Activated Date Inactivated Comments 03/02/2025 11:25 PM 03/04/2025 11:18 AM * Full Code Date Activated Date Inactivated Comments 02/20/2025 11:48 PM 02/25/2025 12:46 AM * DNR Date Activated Date Inactivated Comments 12/19/2024 6:39 PM 12/21/2024 10:33 AM * DNR Date Activated Date Inactivated Comments 12/19/2024 6:36 PM 12/19/2024 6:39 PM * DNR Date Activated Date Inactivated Comments 06/18/2024 2:42 PM 06/19/2024 1:30 PM Care Teams Metal Tester Relationship Specialty Start Date End Date Lopez Pool MD [address] [place] [phone] PCP - General FAMILY PRACTICE 03/21/22 Lopez Pool MD [address] [place] [phone] FAMILY PRACTICE 03/21/22 Martine Garsia, drill sergeant (Ambulatory) REGISTERED NURSE 02/27/25
--- OUTSIDE RECORDS SUMMARY | 2025-04-18 10:35 | XMS_ITS | Encounter Summary ---
Author Organization [facility] Address [address] [place] [address] Care Team Providers Care It Support Specialist Name Role Phone Elmer Wallace MD Primary Care Provider [phone] Lopez Pool MD Primary Care Provider [phone] Lopez Pool MD Unavailable [phone] Martine Garsia RN Unavailable Unavailable Encounter Details Date Type Department Care Team (Late st Contact Info) Description 01/02/2018 Abstract [facility] CONVERSION [address] [place] [address] , Generic Conversion, Social History Tobacco Use Types Packs/Day Years Used Date Smoking Tobacco: Never Assessed Comments Unknown Sex and Gender Information Value Date Recorded Sex Assigned at Female 11/01/2024 8:23 AM CAD ENGINEER Legal Sex Female 10:48 PM CAD ENGINEER Gender Identity Not on file Sexual Orientation Not on file documented as of this encounter Plan of Treatment Upcoming Encounters Date Type Department Care Team (Late st Contact Info) Description 04/19/2025 3:[address] [facility] [address] [place] [address] Jacqueline Merritt PA-C [address] [place] [address] documented as of this encounter Visit Diagnoses Not on filedocumented in this encounter Additional Health Concerns Infection Onset Date Last Indicated Resolved Time COVID-19 Rule Out 03/24/2020 03/24/2020 03/25/2020 6:29 PM CDT COVID-19 Rule Out 06/30/2020 06/30/2020 07/01/2020 7:55 PM CDT COVID-19 Rule Out 02/02/2021 02/02/2021 02/03/2021 1:02 PM CDT COVID-19 Rule Out 10/06/2021 10/06/2021 10/06/2021 8:43 PM CAD ENGINEER COVID-19 Rule Out 02/14/2022 02/14/2022 02/14/2022 8:59 AM CDT COVID-19 Rule Out 02/22/2022 02/22/2022 02/22/2022 2:34 AM CDT COVID-19 Rule Out 02/22/2022 02/22/2022 02/23/2022 11:16 AM CDT COVID-19 Rule Out 06/02/2022 06/02/2022 06/02/2022 9:32 PM CDT COVID-19 Confirmed 06/02/2022 06/02/2022 12:32 AM CDT COVID-19 Rule Out 09/03/2022 09/03/2022 09/03/2022 3:29 PM CAD ENGINEER COVID-19 Rule Out 10/25/2023 10/25/2023 10/25/2023 2:09 PM CAD ENGINEER documented as of this encounter Care Teams It Support Specialist Relationship Specialty Start Date End Date Elmer Wallace MD [address] [place] [phone] PCP - General FAMILY PRACTICE 06/14/19 03/20/22 Lopez Pool MD [address] [address] PCP - General FAMILY PRACTICE 03/21/22 Lopez Pool MD [address] [place] [phone] FAMILY PRACTICE 03/21/22 Martine Garsia RN Care Manager (Ambulatory) REGISTERED NURSE 02/27/25 documented as of this encounter
--- OUTSIDE RECORDS SUMMARY | 2025-04-18 10:35 | XMS_ITS | Encounter Summary ---
Author Organization [facility] Address [address] [place] [address] Care Team Providers Care Drug Enforcement Administration Agent Name Role Phone Lopez Pool MD Primary Care Provider [phone] Lopez Pool MD Unavailable [phone] Martine Garsia RN Unavailable Unavailable Encounter Details Date Type Department Care Team (Late st Contact Info) Description 04/14/2025 Orders Only [facility] [address] [facility] [place] [address] Natalia Pino, SHAILESH [address] [place] [address] Social History Tobacco Use Types Packs/Day Years [...] materials from doctor or pharmacy Never 12/30/2023 [facility] Utilities Answer Date Recorded In the past [...] week 02/22/2022 How often do you attend [facility] or [facility] services? 1 to 4 times per year 02/22/2022 Do you belong to any clubs o r organizations such as anglican groups, unions, fraternal or athletic groups, or [...] move on to questions 3-9 0 02/22/2022 [facility] - Occupational Stress [...] in a nursing home (including now)? No 10/25/2023 Housing Stability Vital Sign Answer Sebas e Recorded In the last 12 months, was t here a time when you were not able to pay the mortgage or rent on time? No 03/03/2025 In the past 12 months, how m any times have you moved where you were living? 0 03/03/2025 At any time in the past 12 m [facility], were you homeless or living in a nursing home (including now)? No 03/03/2025 Comments No Sex and Gender Information Value Date Recorded Sex Assigned at Female 11/01/2024 8:23 AM LATHE WINDER Legal Sex Female 10:48 PM LATHE WINDER Gender Identity Not on file Sexual Orientation Not on file documented as of this encounter Functional Status * Are you deaf or do you have serious difficulty hearing Answer Date of Assessment Author Status Yes 03/03/2025 12:17 AM CDT Johnna Blackburn RN Active * Are you blind or do you have serious difficulty seeing, even when wearing glasses? Answer Date of Assessment Author Status Yes 03/03/2025 12:17 AM CDT Johnna Blackburn RN Active * Do you have serious difficulty walking or climbing stairs? Answer Date of Assessment Author Status Yes 03/03/2025 12:17 AM CDT Johnna Blackburn RN Active * Do you have difficulty dressing or bathing? Answer Date of Assessment Author Status No 03/03/2025 12:17 AM CDT Johnna Blackburn RN Active * Because of a physical, mental, or emotional condition, do you have difficulty doing errands alone such as visiting a doctor's office or shopping? Answer Date of Assessment Author Status No 03/03/2025 12:17 AM CDT Johnna Blackburn RN Active documented as of this encounter Mental Status * Because of a physical, mental, or emotional condition, do you have serious difficulty concentrating, remembering, or making decisions? Answer Entry Date Author Status No 03/03/2025 12:17 AM WILLT Johnna Blackburn RN Active documented in this encounter Plan of Treatment Upcoming Encounters Date Type Department Care Team (Late st Contact Info) Description 04/19/2025 3:00 PM CDT Appointment [facility] [address] [place] [address] Jacqueline Merritt PA-C [address] [place] [address] documented as of this encounter Goals Goal Patient Goal Type Associated Problems Recent Progress Patient-Stated? Author Safety Patient/family will have appropriate support at home upon discharge General No Priscila Díaz LSW documented as of this encounter Results * (ABNORMAL) CBC W/DIFF AUTOMATED (04/14/2025 2:10 PM CDT) [facility] WBC 6.32 4.00 - 10.80 x10'3/uL 04/14/2025 2:15 PM CDT [facility] RBC 3.82(L) 4.10 - 5.40 x10'6/uL 04/14/2025 2:15 PM CDT [facility] HGB 11.0(L) 12.0 - 16.0 G/DL 04/14/2025 2:15 PM CDT [facility] HCT 36.4 36.0 - 47.0 % 04/14/2025 2:15 PM CDT [facility] MCV 95.3 78.0 - 100.0 FL 04/14/2025 2:15 PM CDT [facility] MCH 28.8 27.0 - 31.0 PG 04/14/2025 2:15 PM CDT [facility] MCHC 30.2(L) 33.0 - 36.0 G/DL 04/14/2025 2:15 PM CDT [facility] RDW 14.6(H) 11.5 - 14.5 % 04/14/2025 2:15 PM CDT [facility] PLT 208 150 - 350 x10'3/uL 04/14/2025 2:15 PM CDT [facility] MPV 11.3(H) 7.4 - 10.4 FL 04/14/2025 2:15 PM CDT [facility] CBC COMMENT NORMAL REFERENCE RANGE NOT ESTABLISHED FOR THE PROPORTIONAL LEUKOCYTE DIFFERENTIAL. 04/14/2025 2:15 PM CDT [facility] NEUTROPHILS % 69.1 % 04/14/2025 2:15 PM CDT [facility] LYMPHOCYTES % 17.7 % 04/14/2025 2:15 PM CDT [facility] MONOCYTES % 9.0 % 04/14/2025 2:15 PM CDT [facility] EOSINOPHILS % 2.8 % 04/14/2025 2:15 PM CDT [facility] BASOPHILS % 0.9 % 04/14/2025 2:15 PM CDT [facility] IMMATURE GRANS % 0.5 % 04/14/20 2:15 PM CDT [facility] NRBC % 0.0 % 04/14/2025 2:15 PM CDT [facility] ABS. NEUTROPHILS 4.36 1.60 - 8.30 x10'3/uL 04/14/2025 2:15 PM CDT [facility] ABS. LYMPHOCYTES 1.12 0.80 - 4.70 x10'3/uL 04/14/2025 2:15 PM CDT [facility] ABS. MONOCYTES 0.57 0.00 - 1.50 x10'3/uL 04/14/2025 2:15 PM CDT [facility] ABS. EOSINOPHILS 0.18 0.00 - 0.40 x10'3/uL 04/14/2025 2:15 PM CDT [facility] ABS. BASOPHILS 0.06 0.00 - 0.20 x10'3/uL 04/14/2025 2:15 PM CDT [facility] ABS. IMMATURE GRANULOCYTES 0.03 0.00 - 0.03 x10'3/uL 04/14/2025 2:15 PM CDT [facility] ABS. NUCLEATED RBC'S 0.00 0.00 - 0.01 x10'3/uL 04/14/2025 2:15 PM CDT [facility] 04/14/2025 2:10 PM CDT Natalia Pino MUSIC RESEARCHER LABORATORY Final Re sult [facility] [address] [place] [address], documented in this encounter Visit Diagnoses Diagnosis Cirrhosis of liver without ascites, unspecified hepatic cirrhosis type (CMS/HCC HHS/HCC)- Primary documented in this encounter Additional Health Concerns Assessment Noted Time PHQ-9 Depression Total Score: 0 02/23/20 22 5:14 AM CDT documented as of this encounter Care Teams Drug Enforcement Administration Agent Relationship Specialty Start Date End Date Lopez Pool MD [address] [place] [phone] PCP - General FAMILY PRACTICE 03/21/22 Lopez Pool MD [address] [place] [phone] FAMILY PRACTICE 03/21/22 Martine Garsia pneumatic jack operator (Ambulatory) REGISTERED NURSE 02/27/25 documented as of this encounter
--- OUTSIDE RECORDS SUMMARY | 2025-04-18 10:35 | XMS_ITS | Encounter Summary ---
Author Organization [facility] Address [address] [place] [address] Care Team Providers Care Classifications Officer Cc/Cm Name Role Phone Elmer Wallace MD Primary Care Provider [phone] Lopez Pool MD Primary Care Provider [phone] Lopez Pool MD Unavailable [phone] Martine Garsia RN Unavailable Unavailable Reason for Referral * Surgical (Routine) - Closed Specialty Diagnoses / Procedures Referred By Amanda asher Referred To Contact Diagnoses Z85.51 Procedures Case request operating room: CYSTOSCOPY Lorin Contreras III, MD Phone: tel: fax: Referral ID Status Reason Start Date Expiration Date Visits Re quested Visits Authorized [id number] Closed 03/22/2020 04/21/2021 1 1 Encounter Details Date Type Department Care Team (Late st Contact Info) Description 03/22/2020 Prep for Procedure [facility] [address] [place] [address] [place] [address] [place] [address] [place] [phone] Social History Tobacco Use Types Packs/Day Years [...] Sex Assigned at Female 11/01/2024 8:23 AM COMMERCIAL HVAC SERVICE TECHNICIAN Legal Sex Female 10:48 PM COMMERCIAL HVAC SERVICE TECHNICIAN Gender Identity Not on file Sexual Orientation [...] Description 04/19/2025 3:[address] [facility] [address] [place] [address] Jacqueline Merritt PA-C [address] [place] [address] Scheduled Orders Name Type Priority Associated Diagnoses Orde r Schedule Case request operating room: CYSTOSCOPY Case Request Routine Once for 1 Occurrences starting 03/22/2020 until 03/22/2020 documented as of this encounter Visit Diagnoses Not on filedocumented in this encounter Additional Health Concerns Infection Onset Date Last Indicated Resolved Time COVID-19 Rule Out 03/24/2020 03/24/2020 03/25/2020 6:29 PM CDT COVID-19 Rule Out 06/30/2020 06/30/2020 07/01/2020 7:55 PM CDT COVID-19 Rule Out 02/02/2021 02/02/2021 02/03/2021 1:02 PM CDT COVID-19 Rule Out 10/06/2021 10/06/2021 10/06/2021 8:43 PM COMMERCIAL HVAC SERVICE TECHNICIAN COVID-19 Rule Out 02/14/2022 02/14/2022 02/14/2022 8:59 AM CDT COVID-19 Rule Out 02/22/2022 02/22/2022 02/22/2022 2:34 AM CDT COVID-19 Rule Out 02/22/2022 02/22/2022 02/23/2022 11:16 AM CDT COVID-19 Rule Out 06/02/2022 06/02/2022 06/02/2022 9:32 PM CDT COVID-19 Confirmed 06/02/2022 06/02/2022 12:32 AM CDT COVID-19 Rule Out 09/03/2022 09/03/2022 09/03/2022 3:29 PM COMMERCIAL HVAC SERVICE TECHNICIAN COVID-19 Rule Out 10/25/2023 10/25/2023 10/25/2023 2:09 PM COMMERCIAL HVAC SERVICE TECHNICIAN documented as of this encounter Care Teams Classifications Officer Cc/Cm Relationship Specialty Start Date End Date Elmer Wallace MD [address] [place] [phone] PCP - General FAMILY PRACTICE 06/14/19 03/20/22 Lopez Pool MD [address] [place] [phone] PCP - General FAMILY PRACTICE 03/21/22 Lopez Pool MD [address] [place] [phone] FAMILY PRACTICE 03/21/22 Martine Garsia, litigation claim representative (Ambulatory) REGISTERED NURSE 02/27/25 documented as of this encounter
--- OUTSIDE RECORDS SUMMARY | 2025-04-18 10:35 | XMS_ITS | Encounter Summary ---
Author Organization [facility] Address [address] [place] [address] Care Team Providers Care Foreign Exchange Dealer Name Role Phone Elmer Wallace MD Primary Care Provider [phone] Lopez Pool MD Primary Care Provider [phone] Lopez Pool MD Unavailable [phone] Martine Garsia RN Unavailable Unavailable Encounter Details Date Type Department Care Team (Late st Contact Info) Description 03/26/2019 Abstract SFL CONVERSION [address] [place] [address] , Generic Conversion, Social History Tobacco Use Types Packs/Day Years Used Date Smoking Tobacco: Never Assessed Comments Unknown Sex and Gender Information Value Date Recorded Sex Assigned at Female 11/01/2024 8:23 AM LANDSCAPE AND YARDWORK LABORER Legal Sex Female 10:48 PM LANDSCAPE AND YARDWORK LABORER Gender Identity Not on file Sexual Orientation Not on file documented as of this encounter Plan of Treatment Upcoming Encounters Date Type Department Care Team (Late st Contact Info) Description 04/19/2025 3:[address] [facility] [address] [place] [id number] Jacqeuline Merritt PA-C [address] [place] [address] documented as of this encounter Visit Diagnoses Not on filedocumented in this encounter Additional Health Concerns Infection Onset Date Last Indicated Resolved Time COVID-19 Rule Out 03/24/2020 03/24/2020 03/25/2020 6:29 PM CDT COVID-19 Rule Out 06/30/2020 06/30/2020 07/01/2020 7:55 PM CDT COVID-19 Rule Out 02/02/2021 02/02/2021 02/03/2021 1:02 PM CDT COVID-19 Rule Out 10/06/2021 10/06/2021 10/06/2021 8:43 PM LANDSCAPE AND YARDWORK LABORER COVID-19 Rule Out 02/14/2022 02/14/2022 02/14/2022 8:59 AM CDT COVID-19 Rule Out 02/22/2022 02/22/2022 02/22/2022 2:34 AM CDT COVID-19 Rule Out 02/22/2022 02/22/2022 02/23/2022 11:16 AM CDT COVID-19 Rule Out 06/02/2022 06/02/2022 06/02/2022 9:32 PM CDT COVID-19 Confirmed 06/02/2022 06/02/2022 12:32 AM CDT COVID-19 Rule Out 09/03/2022 09/03/2022 09/03/2022 3:29 PM LANDSCAPE AND YARDWORK LABORER COVID-19 Rule Out 10/25/2023 10/25/2023 10/25/2023 2:09 PM LANDSCAPE AND YARDWORK LABORER documented as of this encounter Care Teams Foreign Exchange Dealer Relationship Specialty Start Date End Date Elmer Wallace MD [address] [place] [phone] PCP - General FAMILY PRACTICE 06/14/19 03/20/22 Lopez Pool MD [address] [place] [address] PCP - General FAMILY PRACTICE 03/21/22 Lopez Pool MD [address] [place] [address] FAMILY PRACTICE 03/21/22 Martine Garsia RN Care Manager (Ambulatory) REGISTERED NURSE 02/27/25 documented as of this encounter
--- OUTSIDE RECORDS SUMMARY | 2025-04-18 10:35 | XMS_ITS | Encounter Summary ---
Author Organization [facility] Address [address] [place] [address] Care Team Providers Care Marketing Sales Manager Name Role Phone Elmer Wallace MD Primary Care Provider [phone] Lopez Pool MD Primary Care Provider [phone] Lopez Pool MD Unavailable [phone] Martine Garsia RN Unavailable Unavailable Reason for Referral * Surgical (Routine) - Closed Specialty Diagnoses / Procedures Referred By Amanda asher Referred To Contact Diagnoses [id number] Procedures Case request operating room: CYSTOSCOPY Lorin Contreras III, MD Phone: tel: fax: Referral ID Status Reason Start Date Expiration Date Visits Re quested Visits Authorized [id number] Closed 04/04/2020 05/04/2021 1 1 Encounter Details Date Type Department Care Team (Late st Contact Info) Description 04/04/2020 Prep for Procedure [facility] [address] [facility] [place] [address] [place] [address] [place] [address] Social History Tobacco Use Types Packs/Day Years [...] Sex Assigned at Female 11/01/2024 8:23 AM LOG BRANDER Legal Sex Female 10:48 PM LOG BRANDER Gender Identity Not on file Sexual Orientation [...] CDT Appointment [facility] [address] [place] [address] Jacqueline Merritt PA-C [address] [place] [address] Scheduled Orders Name Type Priority Associated Diagnoses Orde r Schedule Case request operating room: CYSTOSCOPY Case Request Routine Once for 1 Occurrences starting 04/04/2020 until 04/04/2020 documented as of this encounter Visit Diagnoses Not on filedocumented in this encounter Additional Health Concerns Infection Onset Date Last Indicated Resolved Time COVID-19 Rule Out 06/30/2020 06/30/2020 07/01/2020 7:55 PM CDT COVID-19 Rule Out 02/02/2021 02/02/2021 02/03/2021 1:02 PM CDT COVID-19 Rule Out 10/06/2021 10/06/2021 10/06/2021 8:43 PM LOG BRANDER COVID-19 Rule Out 02/14/2022 02/14/2022 02/14/2022 8:59 AM CDT COVID-19 Rule Out 02/22/2022 02/22/2022 02/22/2022 2:34 AM CDT COVID-19 Rule Out 02/22/2022 02/22/2022 02/23/2022 11:16 AM CDT COVID-19 Rule Out 06/02/2022 06/02/2022 06/02/2022 9:32 PM CDT COVID-19 Confirmed 06/02/2022 06/02/2022 12:32 AM CDT COVID-19 Rule Out 09/03/2022 09/03/2022 09/03/2022 3:29 PM LOG BRANDER COVID-19 Rule Out 10/25/2023 10/25/2023 10/25/2023 2:09 PM LOG BRANDER documented as of this encounter Care Teams Marketing Sales Manager Relationship Specialty Start Date End Date Elmer Wallace MD [address] [place] [address] PCP - General FAMILY PRACTICE 06/14/19 03/20/22 Lopez Pool MD [address] [place] [address] PCP - General FAMILY PRACTICE 03/21/22 Lopez Pool MD [address] [place] [address] FAMILY PRACTICE 03/21/22 Martine Garsia, toolmaker helper (Ambulatory) REGISTERED NURSE 02/27/25 documented as of this encounter
[2025-04-18 10:38] LABS: Hematocrit 34.7 % (35.0-42.0); Hemoglobin 10.7 g/dL (11.7-13.8); Immature Granulocyte Percent A 0.6 % (0.0-0.0); Lymphocytes Absolute Auto 0.72 K/mm3 (1.10-4.50); Mean Corpuscular HGB Conc 30.8 g/dL (32-36); Mean Corpuscular Hemoglobin 28.8 pg (27.0-31.0); Mean Corpuscular Volume 93.5 fL (78.0-102.0); Nucleated Red Blood Cells Absolute Auto 0.00 K/mm3 (0.00-0.00); Nucleated Red Blood Cells Perc 0.0 % (0-0.0); Platelet Count Result 199 K/mm3 (150-420); Red Blood Count 3.71 M/mm3 (4.20-5.40); White Blood Count 4.9 K/mm3 (4.8-10.8)
[2025-04-18 10:47] LABS: Hemoglobin A1C. 5.7 % (<5.7)
[2025-04-18 11:02] LABS: Alanine Aminotransferase 27 U/L (6-35); Albumin Level 3.6 g/dL (3.5-5.1); Alkaline Phosphatase 128 U/L (38-126); Anion Gap 5 mmol/L (4-12); Aspartate Amino Transferase 53 U/L (14-36); Bilirubin,Total 0.4 mg/dL (0.2-1.3); Blood Urea Nitrogen 24 mg/dL (7-17); Calcium 9.1 mg/dL (8.4-10.2); Carbon Dioxide 29 mmol/L (22-30); Chloride 107 mmol/L (98-107); Estimated Glomerular Filt Rate 42; Glucose 115 mg/dL (65-110); Osmolality Calculated 297 mOsm/kg (285-295); Potassium 4.4 mmol/L (3.4-5.0); Sodium 141 mmol/L (137-145); Total Protein 6.2 g/dL (6.3-8.2)
[2025-04-18 11:32] LABS: Thyroid Stimulating Hormone 5.100 uIU/mL (0.465-4.680)
== END 2025-04-18 10:21 | disposition home or self-care (01) ==
LOC: CHSLAB 10:22
PROVIDERS: Visit Provider Family Medicine
DX: E11.9 Type 2 diabetes mellitus without complications (principal); D64.9 Anemia, unspecified; E03.9 Hypothyroidism, unspecified; N28.9 Disorder of kidney and ureter, unspecified
CPT/HCPCS: 36415; 80053; 83036; 84443; 85025

== ENCOUNTER 2025-05-09 10:47 | Outpatient (NON) | payer MEDICARE, SELFPAY ==
--- OUTSIDE RECORDS SUMMARY | 2025-05-09 10:52 | XMS_ITS | Encounter Summary ---
Author Organization [facility] Address [address] [place] [address] Phone Care Team Providers Care Plating Engineer Name Role Phone Elmer aWllace MD Primary Care Provider Hema Castaneda MD Unavailable [phone] Colleen Bain MD Unavailable [phone] Rosette Espinoza MD Unavailable [phone] Jenni Hartley RN Unavailable Unavailable Meenu Jones NP Unavailable [phone] Lopez Pool MD Primary Care Provider [phone] Jacqueline Schaeffer RN Unavailable Unavailable Jenni Hartley RN Unavailable Unavailable Anat Hutchison Unavailable Unavailable Zeynep Pérez RN Unavailable [phone] Encounter Details Date Type Department Care Team [...] on file Legal Sex Female 3:00 AM MISSILE FACILITIES REPAIRER Gender Identity Female 07/13/2018 9:28 AM CDT Sexual Orientation Not on file 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 Not on file Not on file documented as of this encounter Plan of Treatment Not on file documented as of this encounter Procedures Procedure Name Priority Date/Time Associated Diagnosis Comments SCAN - LABS 12/07/2018 documented in this encounter Results * SCAN - LABS (12/07/2018) Provider Scanning Final Result documented in this encounter Visit Diagnoses Not on filedocumented in this encounter Additional Health Concerns Infection Onset Date Last Indicated Resolved Time COVID: Suspected 03/13/2022 03/13/2022 03/13/2022 6:26 PM CDT documented as of this encounter Care Teams Plating Engineer Relationship Specialty Start Date End Date Elmer Wallace MD PCP - General 02/09/17 03/17/22 Lopez Pool MD PCP - General Family Medicine 03/18/22 Hema Castaneda MD Consulting Physician Cardiology 01/11/19 Colleen Bain MD Referring Physician Endocrinology Diabetes & Metabolism 04/07/19 Rosette Espinoza MD Referring Physician Cardiology 04/07/19 Jenni Hartley, RN Registered Nurse Cardiology 04/02/21 04/22/21 Meenu Jones NP Delivery Stock Clerk Cardiology 04/02/21 04/22/21 Jacqueline Schaeffer, air sealing technician Failure Coordinator Cardiology 07/13/24 Jenni Hartley, RN Registered Nurse 07/13/24 08/01/24 Anat Hutchison 07/13/24 Zeynep Pérez, MIRI [address] [facility] [address] [place] [address] SHOP Outpatient Electron Gun Inspector 02/03/25 03/02/25 documented as of this encounter
--- OUTSIDE RECORDS SUMMARY | 2025-05-09 10:52 | XMS_ITS | Encounter Summary ---
Author Organization [facility] Address [address] [place] [address] Phone Care Team Providers Care Sap Bw Developer Name Role Phone Elmer Wallace MD Primary Care Provider [phone] Hema Castaneda MD Unavailable [phone] Colleen Bain MD Unavailable [phone] Rosette Espinoza MD Unavailable [phone] Jenni Hartley RN Unavailable Unavailable Meenu Jones NP Unavailable [phone] Lopez Pool MD Primary Care Provider [phone] Jacqueline Schaeffer RN Unavailable Unavailable Jenni Hartley RN Unavailable Unavailable Anat Hutchison Unavailable Unavailable Zeynep Pérez RN Unavailable [phone] Encounter Details Date Type Department Care Team [...] on file Legal Sex Female 3: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 Gender Identity Female 07/13/2018 9:28 AM CDT Sexual Orientation Not on file 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 Not on file Not on file Not on file documented as of this encounter Plan of Treatment Not on file documented as of this encounter Procedures Procedure Name Priority Date/Time Associated Diagnosis Comments SCAN - LABS 05/02/2019 documented in this encounter Results * SCAN - LABS (05/02/2019) Provider Scanning Final Result documented in this encounter Visit Diagnoses Not on filedocumented in this encounter Additional Health Concerns Infection Onset Date Last Indicated Resolved Time COVID: Suspected 03/13/2022 03/13/2022 03/13/2022 6:26 PM CDT documented as of this encounter Care Teams Sap Bw Developer Relationship Specialty Start Date End Date Elmer Wallace MD PCP - General 02/09/17 03/17/22 Lopez Pool MD PCP - General Family Medicine 03/18/22 Hema Castaneda MD Consulting Physician Cardiology 01/11/19 Colleen Bain MD Referring Physician Endocrinology Diabetes & Metabolism 04/07/19 Rosette Espinoza MD Referring Physician Cardiology 04/07/19 Jenni Hartley, RN Registered Nurse Cardiology 04/02/21 04/22/21 Meenu Jones NP Tap Grinder Cardiology 04/02/21 04/22/21 Jacqueline Schaeffer, hogshead packer Failure Coordinator Cardiology 07/13/24 Jenni Hartley, RN Registered Nurse 07/13/24 08/01/24 Anat Hutchison 07/13/24 Zeynep Pérez, MIRI [address] [facility] [address] [place] [address] SHOP Outpatient X Ray Physician 02/03/25 03/02/25 documented as of this encounter
--- OUTSIDE RECORDS SUMMARY | 2025-05-09 10:52 | XMS_ITS | Encounter Summary ---
Author Organization [facility] Address [address] [place] [address] Phone Care Team Providers Care Fagoting Machine Operator Name Role Phone Hema Castaneda MD Unavailable [phone] Colleen Bain MD Unavailable Rosette Espinoza MD Unavailable [phone] Lopez Pool MD Primary Care Provider [phone] Jacqueline Schaeffer RN Unavailable Unavailable Jenni Hartley RN Unavailable Unavailable Anat Hutchison Unavailable Unavailable Zeynep Pérez RN Unavailable [phone] Encounter Details Date Type Department Care Team [...] 03/14/2022 How often do you attend [facility] or taoist services? Never 03/14/2022 Do you belong to any clubs o r organizations such as pentecostal groups, unions, fraternal or athletic groups, or [...] place to sleep or slept in a retirement (including now)? 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 on file Not on file Not [...] on filedocumented in this encounter Care Teams Fagoting Machine Operator Relationship Specialty Start Date End Date Lopez Pool MD PCP - General Family Medicine 03/18/22 Hema Castaneda MD Consulting Physician Cardiology 01/11/19 Colleen Bain MD Referring Physician Endocrinology Diabetes & Metabolism 04/07/19 Rosette Espinoza MD Referring Physician Cardiology 04/07/19 Jacqueline Schaeffer RN Heart Failure Coordinator Cardiology 07/13/24 Jenni Hartley, RN Registered Nurse 07/13/24 08/01/24 Anat Hutchison 07/13/24 Zeynep Pérez, MIRI [address] [facility] [address] [place] [address] SHOP Outpatient Sidewalk Repairer 02/03/25 03/02/25 documented as of this encounter
--- OUTSIDE RECORDS SUMMARY | 2025-05-09 10:52 | XMS_ITS ---
Author Organization [facility] Address [address] [place] [address] Care Team Providers Care Kennel Helper Name Role Phone Hema Castaneda MD Unavailable [phone] Colleen Bain MD Unavailable Rosette Espinoza MD Unavailable [phone] Lopez Pool MD Primary Care Provider [phone] Jacqueline Schaeffer RN Unavailable Unavailable Anat Hutchison [...] what she can do for physical exercise. Amelia on eating healthy diet. Avoid sweetened beverages. 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 Has [...] prescribed Assessment & Plan (12/09/2022 9:54 AM LINE APPLIANCE ASSEMBLER): -Labs dated 10/03/22: FT4 was 0.49, TSH [...] 12/19/2019 Assessment & Plan (10/01/2023 7:56 PM LINE APPLIANCE ASSEMBLER): Glucoses high but needs reliable test strips. [...] podiatry Assessment & Plan (12/09/2022 9:54 AM LINE APPLIANCE ASSEMBLER): -Currently prescribed insulin -metformin has been discontinued [...] podiatry Assessment & Plan (11/15/2021 11:27 AM LINE APPLIANCE ASSEMBLER): -Currently prescribed insulin and metformin -A1C recently [...] 12/19/2019 Assessment & Plan (10/01/2023 7:54 PM LINE APPLIANCE ASSEMBLER): Continue statin, optimize glycemic control. Assessment & [...] effects Assessment & Plan (12/08/2022 8:55 AM LINE APPLIANCE ASSEMBLER): -Lipid panel on 03/03/22: TC 108, trig [...] effects Assessment & Plan (11/15/2021 11:23 AM LINE APPLIANCE ASSEMBLER): -Will continue statin as it is being tolerated without side effects Stage 3b chronic kidney disease 03/20/2019 Assessment & Plan (10/01/2023 7:55 PM LINE APPLIANCE ASSEMBLER): Need optimal glycemic control, minimize risk of hypoglycemia. Assessment & Plan (06/15/2023 3:56 PM CDT): -CKD increases risk of hypoglycemia -Will closely monitor glucose pattern in ensure margin of safety Assessment & Plan (03/09/2023 8:23 AM CDT): -CKD increases risk of hypoglycemia -Will closely monitor glucose pattern in ensure margin of safety Assessment & Plan (12/08/2022 8:56 AM LINE APPLIANCE ASSEMBLER): -CKD increases risk of hypoglycemia -Will closely [...] monitor. Assessment & Plan (11/11/2021 12:00 PM LINE APPLIANCE ASSEMBLER): -CKD increases risk of hypoglycemia -Will closely [...] time. Assessment & Plan (12/09/2022 9:54 AM LINE APPLIANCE ASSEMBLER): -BP was 128/85 -Will continue same antihypertensive [...] MARI Assessment & Plan (11/11/2021 11:59 AM LINE APPLIANCE ASSEMBLER): -Will continue same antihypertensive medications at this time. Assessment & Plan (04/08/2019 7:29 AM CDT): Recent changes in medications. Defer to her Cardiology team Breast cancer ([facility]) 07/13/2018 Overview (07/13/2018): L radical mastectomy with chemo and XRT x [phone]. Assessment & Plan (03/17/2022 10:47 AM CDT): [...] (goal 2-3) - cont sotolol, renally dosed [facility]CI current use of anticoagulant therapy 0 03/24/2018 [...] dysfunction 02/22/2010 Chronic diastolic congestive heart failure ([facility]) 02/22/2010 Assessment & Plan (03/17/2022 10:47 [...]
--- OUTSIDE RECORDS SUMMARY | 2025-05-09 10:52 | XMS_ITS | Referral Summary ---
Author Organization [facility] Address [address] [place] [address] Care Team Providers Care Concrete Mixer Loader Truck Mounted Name Role Phone Hema Castaneda MD Unavailable [phone] Colleen Bain MD Unavailable [phone] Rosette Espinoza MD Unavailable [phone] Lopez Pool MD Primary Care Provider [phone] Jacqueline Schaeffer RN Unavailable Unavailable Anat Hutchison Unavailable Unavailable Encounters Date Type Department Care Team Description 05/04/2025 2:30 PM CDT - 05/04/2025 3:15 PM CDT Surgery [facility] Endoscopy [address] [place], [place] [id number] Edilberto Vargas MD PhD COLON REMOVAL SNARE 05/04/2025 2:29 PM CDT Anesthesia Event [facility] Endoscopy [address] [place], [place] [address] Chloe Alex DO Cohen, Albert M., MD 05/04/2025 1:38 PM CDT - 05/04/2025 4:15 PM CDT Hospital Encounter [facility] Endoscopy [address] [place] [address] Edilberto Vargas MD PhD Iron deficiency anemia, unspecified iron deficiency anemia type; Abnormal colonoscopy Discharge Disposition: Discharge to home or self care 05/03/2025 Telephone [facility] [address] [facility] 2nd [address] [place] [address] Kavya Dunbar LPN 05/03/2025 Orders Only [facility] [address] [facility] 2nd Floor [address] [place] [address] Sea Ignacio MD Iron deficiency anemia, unspecified iron deficiency anemia type (Primary Dx); Abnormal colonoscopy 05/03/2025 9:45 AM CDT - 05/03/2025 10:30 AM CDT Surgery [facility] Endoscopy [address] [place] [address] Sea Ignacio MD COLONOSCOPY 05/03/2025 10:28 AM CDT Anesthesia Event [facility] Endoscopy [address] [place] [address] Dominick Foy MD 05/03/2025 8:33 AM CDT - 05/03/2025 11:27 AM CDT Hospital Encounter [facility] Endoscopy [address] [place] [address] Sea Ignacio MD Discharge Disposition: Discharge to home or self care 04/17/2025 Results [facility] [address] [facility] 12th [place] [address] [place] [address] Natalia Pino NP [id number], Tumor Marker, Smooth muscle antibody, qualitative, Mitochondrial antibodies, qualitative, Additional followed-up results: 11 04/14/2025 Documentation [facility] [address] [facility] 2nd [address] [place] [address] Zeny Grewal LPN GI ASSESSMENT 04/13/2025 Orders Only [facility] [address] [facility] 12th [place] [address] [place] [address] Alis Parsons, MIRI Cirrhosis of liver without ascites, unspecified hepatic cirrhosis type (HCC) (Primary Dx) 04/13/2025 11:55 AM CDT Lab [facility] [address] [place] [address] 04/13/2025 11:40 AM CDT Lab [facility] Advanced [facility] ([facility]) [address] [place] [address] Cirrhosis of liver without ascites, unspecified hepatic cirrhosis type (HCC); Chronic diastolic congestive heart failure (HCC) 04/13/2025 11:00 AM CDT Office Visit [facility] [address] [facility] 12th [place] [address] [place] [address] Natalia Pino NP Cirrhosis of liver without ascites, unspecified hepatic cirrhosis type (HCC) (Primary Dx) 04/12/2025 Orders Only [facility] [address] [facility] 2nd Floor Suite [facility] [place] [address] Zeny Grewal LPN 04/06/2025 Orders Only [facility] [address] [facility] 2nd Floor Suite [facility] [place] [address] Zeny Grewal, AURELIANO Iron deficiency anemia, unspecified iron deficiency anemia type (Primary Dx); Abnormal colonoscopy 04/05/2025 Telephone [facility] [address] [facility] 12th [place] [address] [place] [address] Edel Rainey 04/03/2025 Results [facility] [address] [facility] 8th [place] [address] [place] [address] Nicholas Benites MD PhD Cardiology Document Scan 03/28/2025 Orders Only [facility] Nicholas Benites MD PhD 03/28/2025 Telephone [facility] 8th [place] [address] [place] [address] Nicholas Benites MD PhD 03/20/2025 Orders Only [facility] [address] [facility] Medical [facility] Building [address] [place] [address] Rosette Espinoza MD 03/20/2025 11:00 AM CDT Office Visit [facility] [address] [facility] 3 [address] [place] [address] Jesika Ewing NP Paroxysmal atrial fibrillation (HCC) (Primary Dx) 03/06/2025 Results [facility] [address] [place] [address] Advanced [facility] 8th [place] [address] [place] [address] Nicholas Benites MD PhD Transesophageal Echocardiogram (MARIO) W Possible Cardioversion 03/06/2025 9:42 AM CDT Anesthesia Event [facility] [place] [address] [place] [address] Kirstie Vuong MD 03/06/2025 Documentation [facility] [address] [place] [address] Advanced [facility] 8th [place] [address] [place] [address] Adriel Bean MD 03/06/2025 6:59 AM CDT - 03/06/2025 11:59 PM CDT Hospital Encounter [facility] [place] [address] [place] [address] Kirstie Vuong MD Atrial fibrillation, unspecified type (HCC) Discharge Disposition: Discharge to home or self care 03/03/2025 Telephone [facility] Building [address] [place] [address] Rosette Espinoza MD 03/03/2025 SHOP/CHAP Subsequent Outreach [facility] OP CASE MANAGEMENT 1 [place] [address] Zeynep Pérez RN 03/02/2025 Telephone [facility] [address] [place] [address] Advanced [facility] 8th [place] [address] [place] [address] Zavala, Valery Ashley rescheduling LAAO visits 03/02/2025 Telephone [facility] 1 [place] [address] Christal Stark, MIRI 03/01/2025 SHOP/CHAP Subsequent Outreach [facility] OP CASE MANAGEMENT 1 [place] [address] Zeynep Pérez, MIRI 02/27/2025 SHOP/CHAP Subsequent Outreach [facility] OP CASE MANAGEMENT 1 [place] [address] Olga Groves, ROUNDHOUSE WORKER 02/23/2025 SHOP/CHAP Subsequent Outreach [facility] OP CASE MANAGEMENT 1 [place] [address] Jenni Snider RN 02/22/2025 SHOP/CHAP Subsequent Outreach [facility] OP CASE MANAGEMENT 1 [place] [address] Zeynep Pérez, MIRI 02/20/2025 Telephone [facility] Transplant Heart [address] [facility] [address] [place] [address] Jacqueline Scaheffer RN 02/20/2025 SHOP/CHAP Subsequent Outreach [facility] OP CASE MANAGEMENT 1 [place] [address] Zeynep Pérez, MIRI 02/17/2025 Anticoagulation Telephone Call [facility] Trans[facility] Heart [address] [facility] [address] [place] [address] Jenni Hartley RN Atrial fibrillation, unspecified type (HCC) (Primary Dx); surgery scheduler current use of anticoagulant therapy 02/17/2025 SHOP/CHAP Subsequent Outreach [facility] OP CASE MANAGEMENT 1 [place] [address] Zeynep Pérez, MIRI 02/14/2025 SHOP/CHAP Subsequent Outreach [facility] OP CASE MANAGEMENT 1 [place] [address] Zeynep Pérez, MIRI 02/13/2025 Orders Only [facility] Scanning, Provider 02/13/2025 Telephone [facility] Trans[facility] Heart [address] [facility] [phone] [place] [address] Parris [place] 02/09/2025 SHOP/CHAP Subsequent Outreach [facility] OP CASE [facility]NAGEMENT 1 [place] [address] Zeynep Pérez RN from Last 3 Months Allergies No known [...] 1 tablet (137 mcg total) by mouth security strategist before breakfast 08/20/[address] [...] daily 90 tablet 3 03/24/20 25 Active glucagon 1 mg injection 04/07/20 25 Active polyethylene glycol (GoLYTELY) 236-22.74-6.74 -5.86 gram solution Follow Mychart instructions from Dr. Ignacio's office, do not follow instructions on package. For any questions call [phone]. 4000 mL 04/12/20 25 025 Discontin ued(Thera py completed ) polyethylene glycol (GoLYTELY) 236-22.74-6.74 -5.86 gram solution Follow Mychart instructions from Dr. Ignacio's office, do not follow instructions on package. For any questions call [phone]. 4000 mL 05/03/20 25 025 Discontin ued(Thera py completed ) Active Problems Problem Noted Date Diagnosed Date Cirrhosis of liver without ascites 04/13/2025 Assessment & Plan (04/13/2025 12:54 PM CDT): Walker Brizuela Hilliard is an 79 year old female with likely cirrhosis secondary to MAS. Recommendations are as follows: Cirrhosis: appears to [...] what she can do for physical exercise. Bishop on eating healthy diet. Avoid sweetened beverages. [...] aortic aneurysm (AAA) 01/13 Gastrointestinal hemorrhage 01/13/2025 surgery scheduler current use of amiodarone 07/22/2024 Acquired hypothyroidism 12/08/2022 Assessment & Plan (10/01/2023 7:53 PM LICENSED PHARMACIST): Symptomatically euthyroid but recent TSH elevated. Has [...] prescribed Assessment & Plan (12/09/2022 9:54 AM LICENSED PHARMACIST): -Labs dated 10/03/22: FT4 was 0.49, TSH [...] 2L at night, 1L during day). RVP 5 remarkable for Influenza A. CXR at OSH [...] 12/19/2019 Assessment & Plan (10/01/2023 7:56 PM LICENSED PHARMACIST): Glucoses high but needs reliable test strips. [...] podiatry Assessment & Plan (12/09/2022 9:54 AM LICENSED PHARMACIST): -Currently prescribed insulin -metformin has been discontinued [...] insulin from there. (Addendum per Stephany River, KWAME on 07/16/22) -Discussed diet and activity [...] podiatry Assessment & Plan (11/15/2021 11:27 AM LICENSED PHARMACIST): -Currently prescribed insulin and metformin -A1C recently [...] 12/19/2019 Assessment & Plan (10/01/2023 7:54 PM LICENSED PHARMACIST): Continue statin, optimize glycemic control. Assessment & [...] effects Assessment & Plan (12/08/2022 8:55 AM LICENSED PHARMACIST): -Lipid panel on 03/03/22: TC 108, trig [...] effects Assessment & Plan (11/15/2021 11:23 AM LICENSED PHARMACIST): -Will continue statin as it is being tolerated without side effects Stage 3b chronic kidney disease 03/20/2019 Assessment & Plan (10/01/2023 7:55 PM LICENSED PHARMACIST): Need optimal glycemic control, minimize risk of hypoglycemia. Assessment & Plan (06/15/2023 3:56 PM CDT): -CKD increases risk of hypoglycemia -Will closely monitor glucose pattern in ensure margin of safety Assessment & Plan (03/09/2023 8:23 AM CDT): -CKD increases risk of hypoglycemia -Will closely monitor glucose pattern in ensure margin of safety Assessment & Plan (12/08/2022 8:56 AM LICENSED PHARMACIST): -CKD increases risk of hypoglycemia -Will closely [...] monitor. Assessment & Plan (11/11/2021 12:00 PM LICENSED PHARMACIST): -CKD increases risk of hypoglycemia -Will closely [...] time. Assessment & Plan (12/09/2022 9:54 AM LICENSED PHARMACIST): -BP was 128/85 -Will continue same antihypertensive [...] MARI Assessment & Plan (11/11/2021 11:59 AM LICENSED PHARMACIST): -Will continue same antihypertensive medications at this time. Assessment & Plan (04/08/2019 7:29 AM CDT): Recent changes in medications. Defer to her Cardiology team Breast cancer ([facility] 07/13/2018 Overview (07/13/2018): L radical mastectomy with chemo and XRT x [phone]. Assessment & Plan (03/17/2022 10:47 AM CDT): [...] AM CDT): C/w home anastrozole Stroke (cerebrum) ([facility]) 07/13/2018 Overview [...] (goal 2-3) - cont sotolol, renally dosed surgery scheduler current use of anticoagulant therapy 0 03/24/2018 [...] dysfunction 02/22/2010 Chronic diastolic congestive heart failure ([facility]) 02/22/2010 Assessment & Plan (03/17/2022 10:47 AM [...] -c/w sotalol 80 mg BID (first dose 531 AM) Will not increase further with eCrCL [...] = 0.6 oz pur e alcohol) minimal [facility] Utilities Answer Date Recorded In the [...] often do you attend chur ch or methodist services? Never 02/03/2025 Do you belong to any clubs o r organizations such as spiritism groups, unions, fraternal or athletic groups, or school groups? No 02/03/2025 How often do you attend meet ings of the clubs or organizations you belong to? Never 02/03/2025 Are you , , di vorced, , never , or living with a partner? 02/03/2025 AUDIT-C Answer Date Recorded Q1: How often do you have a drink containing alcohol? Never 05/04/2025 Q2: How many drinks containi ng alcohol do you have on a typical day when you are drinking? Patient does not drink Q3: How often do you have si x or more drinks on one occasion? Never 05/04/2025 Overall Financial Resource Strain (CARDIA) Answe r [...] in a detention (including now)? No 03/14/2022 Housing Stability Vital Sign Answer Sebas e Recorded In the last 12 months, was t here a time when you were not able to pay the mortgage or rent on time? No 02/03/2025 In the past 12 months, how m any times have you moved where you were living? 0 02/03/2025 At any time in the past 12 m [facility], were you homeless or living in a detention (including now)? No 02/03/2025 Personal Safety Answer Date Recorded Have you ever been in or are you currently in a harmful physical or emotional relationship or is someone making you feel afraid or unsafe? 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 Not on file Not on file Not on file Last Filed Vital Signs Vital Sign Reading Time Taken Comments Blood Pressure 188/81 05/04/2025 3:55 PM CDT Pulse 68 05/04/2025 4:00 PM CDT Temperature 36 C (96.8 F) 05/04/2025 3:40 PM CDT Respiratory Rate 20 05/04/2025 4:00 PM CDT Oxygen Saturation 98% 05/04/2025 4:00 PM CDT Inhaled Oxygen Concentration - - Weight 99.8 kg (220 lb) 05/04/2025 1:45 PM CDT Height 167.6 cm (5' 6) 05/04/2025 1:45 PM CDT Body Mass Index 35.51 05/04/2025 1:45 PM CDT Plan of Treatment Not on file Medical Devices Implanted Type Area Supervisor Customer Complaint Service Device Identifier Shelf Expiration Date Model / Serial / Lot [employer] Occluder Cvasc Cheli Flexible Braided Amplatzer Amulet 28mm Nitinol 5-Tbm4-403-0 28 - [id number] - [id number] Implanted:Qt y: 1 on 02/01/2025 by Nicholas Benites MD PhD at [facility] Left Atrial Appendage Occluder Left: Atrial Appendage [employer] 2029 9-ACP2-0 10-028 / [id number] / [id number] Pacemaker Pacemaker Right: Chest [employer] System Closure Repair Femoral Artery Suture Mediated Perclose Prostyle 09482-88 - [id number] - [id number] Implanted:Qt y: 1 on 02/01/2025 by Nicholas Benites MD PhD at [facility] Vascular Closure Device Left: Femoral Vein [employer] 11/18/2026 32136-80 / [id number] / [id number] [employer] System Closure Repair Femoral Artery Suture Mediated Perclose Prostyle 67632-04 - [id number] - [id number] Implanted:Qt y: 1 on 02/01/2025 by Nicholas Benites MD PhD at [facility] V[facility] Closure Device Right: Femoral Vein [employer] 04/17/2026 47514-91 / [id number] / [id number] Procedures Procedure Name Priority Date/Time Associated Diagnosis Comments POCT GLUCOSE DEVICE Routine 05/04/2025 3 :43 PM CDT SURGICAL PATHOLOGY Routine 05/04/2025 2: 48 PM CDT Iron deficiency anemia, unspecified iron deficiency anemia type Abnormal colonoscopy ENDO ADD ON COLON BIOPSY 05/04/2025 2:29 PM CDT Iron deficiency anemia, unspecified iron deficiency anemia type Abnormal colonoscopy COLON REMOVAL SNARE 05/04/2025 2 :29 PM CDT Iron deficiency anemia, unspecified iron deficiency anemia type Abnormal colonoscopy COLONOSCOPY 05/04/2025 2:21 PM CDT POCT GLUCOSE DEVICE Routine 05/04/2025 2 :08 PM CDT POCT GLUCOSE DEVICE Routine 05/03/2025 11:09 AM CDT COLONOSCOPY 05/03/2025 10:30 AM CDT COLONOSCOPY 05/03/2025 10:28 AM CDT Iron deficiency anemia, unspecified iron deficiency anemia type Abnormal colonoscopy POCT GLUCOSE DEVICE Routine 05/03/2025 9 :21 AM CDT THYROID FUNCTION CASCADE Routine 04/13/2025 11:37 AM CDT Cirrhosis of [...] without ascites, unspecified hepatic cirrhosis type (HCC) [id number], TUMOR MARKER Routine 04/13/2025 11:37 AM CDT Cirrhosis of liver without ascites, unspecified hepatic cirrhosis type (HCC) HEPATITIS A ANTIBODY, IGM Routine 04/13/2025 11:37 AM CDT Cirrhosis of liver without ascites, unspecified hepatic cirrhosis type (HCC) HEPATITIS A ANTIBODY, TOTAL Routine 04/13/2025 11:37 AM CDT Cirrhosis of liver without ascites, unspecified hepatic cirrhosis type (HCC) HEPATITIS B CORE ANTIBODY, TOTAL Routine 04/13/2025 11:37 AM CDT Cirrhosis of liver without ascites, unspecified hepatic cirrhosis type (HCC) HEPATITIS B SURFACE ANTIBODY (IMMUNE STATUS) Routine 04/13/2025 11:37 AM CDT Cirrhosis of liver without ascites, unspecified hepatic cirrhosis type (HCC) HEPATITIS B SURFACE ANTIGEN Routine 04/13/2025 11:37 AM CDT Cirrhosis of liver without ascites, unspecified hepatic cirrhosis type (HCC) HEPATITIS C ANTIBODY Routine 04/13/2025 11:37 AM CDT Cirrhosis of liver without ascites, unspecified hepatic cirrhosis type (HCC) CBC WITH AUTO DIFFERENTIAL Routine 04/04/2025 12:53 PM CDT BASIC METABOLIC PANEL Routine 04/04/2025 12:53 PM CDT CARDIOLOGY DOCUMENT SCAN 03/28/2025 7:40 AM CDT DEVICE CHECK - REMOTE Routine 03/20/2025 3:31 AM CDT TRANSESOPHAGEAL ECHO (MARIO) W DOPPLER/CF W CARDIOVERSION W CONTRAST Routine 03/06/2025 10:22 AM CDT Atrial fibrillation, unspecified type (HCC) POC BLOOD GAS AND CHEMISTRIES, ARTERIAL Routine 03/06/2025 8:44 AM CDT SCAN - LABS 02/13/2025 LIPID PANEL Routine 02/02/2025 5:20 AM CDT POCT HEMOGLOBIN A1C Routine 01/17/2025 11:45 AM CDT DEXA APPENDICULAR BONE DENSITY Schedule Routine, Read Routine (OP Routine) 01/11/2019 2:40 PM CDT detention current use of inhaled steroid Chronic obstructive pulmonary disease, unspecified COPD type (HCC) H/O inhaled steroid therapy from Last 3 Months or Most Recently Relevant to Health Maintenance Results * (ABNORMAL) POCT glucose (05/04/2025 3:43 PM CDT) [facility] Signature Glucose, POC 69(L) 70 - 199 mg/dL Comment: Interpretive Data Glucose is assumed to be non-fasting. Fasting Glucose reference ranges are: 0 - 150 years: 70 mg/dL - 99 mg/dL Current interpretive data was last revised on 2014. POC Performer [id number] ALONA FRAGAWCH POC Device Number [id number] ALONA [facility] Blood 05/04/2025 3:43 PM CDT 05/04/2025 3:43 PM CDT us Edilberto Vargas MD PhD LAB POCT ORDERABLES - DEVICE Final Result [facility] [address] [facility] [address] * Surgical pathology (05/04/2025 2:48 PM CDT) Tissue (Polyp(s), colon/colorectal, esophageal, gastric) 05/04/2025 2:48 PM CDT Comment:Snare 1 Forceps 1 Tissue specimen (specimen) (Polyp(s), colon/colorectal, esophageal, gastric) 05/04/2025 2:53 PM CDT Comment:Snare 6 Forceps 2 Tissue specimen (specimen) (Polyp(s), colon/colorectal, esophageal, gastric) 05/04/2025 3:08 PM CDT Comment:Snare 6 Forceps 4 Narrative PATHOLOGY [facility] - 05/05/2025 1:13 PM CDT EPIC results best viewed via link to PDF [facility] [place] [address] Note to Patients: This report may contain [...] and explain the details. SURGICAL PATHOLOGY REPORT FINAL Patient Name: WALKER HILLIARD Gender: F : 1945 (Age: 79) Address: [address] [place], [place] [id number] Hospital #: [id number] Taken:05/04/2025 Received:05/04/2025 Reported: 05/05/2025 Patient Type: [facility] SAME Client [facility] Service: Gastro Location: Physician(s): Diana Virk M.D. Nichole Michele Lewis, PA-C Diagnosis: A. Large bowel, cecum and ascending colon, polyps, biopsy: - Fragments of tubular adenomas B. Large bowel, transverse and descending colon, polyps, biopsy: - Fragments of tubular adenomas C. Large bowel, sigmoid colon, polyps, biopsy: - Fragments of tubular adenomas [facility]/05/05/2025 11:54 By this signature, I attest that the above diagnosis is based upon my personal examination of the slides(and/or other material indicated in the diagnosis). Иван Shepard M.D. Report Electronically Reviewed and Signed Out By Иван Shepard M.D. 05/05/2025 13:13:26 Sivakumar Connell M.D. History: The patient is an 79-year-old woman presenting for iron deficiency anemia. Operative procedure: Colon removal snare with biopsy. Specimen(s) Received: A: Cecum and ascending polyps B: Transverse and descending polyps C: Sigmoid polyps Gross Description: Received in three formalin jars labeled with the patient's identifiers. A. Labeled cecum and ascending polyps and consists of a multiple elizalde polypoid fragment(s) of soft tissue measuring 1.2 x 0.7 x 0.3 cm in aggregate. Also included is a large portion of black, foreign material. Labeled A1. Jar 0. B. Labeled transverse and descending polyps and consists of multiple elizalde-pink polypoid fragment(s) of soft tissue measuring 2.4 x 0.8 x 0.3 cm in aggregate. Also included are several fragments of black, foreign material. Labeled B1. Jar 0. C. Labeled sigmoid polyps and consists of multiple elizalde-pink polypoid fragment(s) of soft tissue measuring 2.8 x 1.4 x 0.3 cm in aggregate. Also included are several fragments of black, foreign material. Labeled C1. Jar 0. sxst/05/04/2025 19:00 PA(s): Lela Ulrich By this signature, I attest that the above diagnosis is based upon my personal examination of the slides(and/or other material). Addenda/Procedures Microscopic slide review and interpretation for this case was performed at [facility], Department of Surgical Pathology, [address] [facility] [place] [id number], [place] [address] CLIA # [id number] The performance characteristics of some immunohistochemical stains, fluorescence in-situ hybridization tests and immunophenotyping by flow cytometry cited in this report (if any) were determined by the Surgical Pathology and Flow Cytometry Departments at [facility] as part of an ongoing quality assistant program and in compliance with federally mandated regulations drawn from the Clinical Laboratory Improvement Act of 1988 (CLIA '88). Some of these tests rely on the use of analyte specific reagents and are subject to specific labeling requirements by the US Food and Drug Administration. Such diagnostic tests may only be performed in a facility that is certified by the Department of Health and Human Services as a high complexity laboratory under CLIA '88. The FDA has determined that such clearance or approval is not necessary. This test is used for clinical purposes. It should not be regarded as investigational or for research. Nevertheless, federal rules concerning the medical use of analyte specific reagents require that the following disclaimer be attached to the report: This test was developed and its performance characteristics determined by the Surgical Pathology and Flow Cytometry Departments of [facility]. It has not been cleared or approved by the U. S. Food and Drug Administration. IMAGES AND SCANNED DOCUMENTS, IF INCLUDED, ONLY VIEWABLE IN PDF VERSION OF REPORT us Edilberto Vargas MD PhD LAB PATHOLOGY ORDERAB LES Final Result PATHOLOGY [facility] [phone] * Colonoscopy (05/04/2025 2:21 PM CDT) Anatomical Region Laterality Modality Other Narrative Procedure Note Edilberto Vargas MD PhD - 05/04/2025 2:21 PM CDT ENDOSCOPY LAB Patient Name: Walker Hilliard Procedure Date: 05/04/2025 2:21 PM Date of : 1945 Admit Type: Outpatient Age: 79 Gender: Female Attending MD: Edilberto Vargas M.D., Room: [facility] ENDOSCOPY ROOM 03 Note Status: Finalized Procedure: Colonoscopy Indications: Iron deficiency anemia Comorbidities Type 2 diabetes mellitus, Stage 3 chronic kidney disease, History of COPD on home oxygen, history of breast cancer s/p mastectomy, historyof bladder cancer; colonoscopy in 01/2025 with >35 polyps, non of which were removed in setting of anticoagulation anticipated prior to LAAOs/p percutaneous LAAO implant (01/2025) and DC cardioversion (02/2025);off all anticoagulation since 02/2025. Providers: Edilberto Vargas M.D. Referring MD: Amanda Bowser PA-C Medicines: Monitored Anesthesia Care Complications: No immediate complications. Estimated Blood Loss: Estimated blood loss was minimal. Procedure: Pre-Anesthesia Assessment: - Immediately prior to administration ofmedications, the patient was re-assessed for adequacy to receive sedatives. The benefits, risks and alternatives of theprocedure and sedation were discussed and informed consentwas obtained. All questions were answered. Please referto the signed informed consent document in the medical record. The scope was passed under direct vision.The [id number] was introduced through the anusand advanced to the cecum, identified by appendiceal orifice and ileocecal valve. The colonoscopy was performed without difficulty. The patient tolerated the procedure well. The quality of the bowel preparation was evaluated using the BBPS (BostonBowel Preparation Scale) with scores of: Right Colon = 3, Transverse Colon = 3 and Left Colon = 3 (entiremucosa seen well with no residual staining, smallfragments of stool or opaque liquid). The total BBPS score equals 9. Findings: The perianal and digital rectal examinations were normal. A 5 to 6 mm sessile polyp was found in the cecum. The polyp wasremoved with a cold snare. Resection and retrieval were complete. A 3 to 4 mm sessile polyp was found in the ascending colon. The polyp was removed with a cold biopsy forceps. Resection and retrieval were complete. Six sessile and semi-sessile polyps were found in the transversecolon. The polyps were 5 to 12 mm in size. These polyps were removed with a cold snare. Resection and retrieval were complete. Two sessile polyps were found in the transverse colon. The polypswere 3 to 5 mm in size. These polyps were removed with a cold biopsyforceps. Resection and retrieval were complete. Six sessile and semi-sessile polyps were found in the sigmoid colon.The polyps were 6 to 10 mm in size. These polyps were removed with a cold snare. Resection and retrieval were complete. Four sessile polyps were found in the sigmoid colon. The polyps were3 to 5 mm in size. These polyps were removed with a cold biopsyforceps. Resection and retrieval were complete. Impression: - No evidence of active or recent bleeding in the entire examined colon. Unlikely that irondeficiency anemia is secondary to active or recent colonicblood loss. Twenty polyps (>3-4 mm) in total removed. - One 5 to 6 mm polyp in the cecum, removed with a cold snare. Resected and retrieved. - One 3 to 4 mm polyp in the ascending colon,removed with a cold biopsy forceps. Resected andretrieved. - Six 5 to 12 mm polyps in the transverse colon, removed with a cold snare. Resected andretrieved. - Two 3 to 5 mm polyps in the transverse colon, removed with a cold biopsy forceps. Resected and retrieved. - Six 6 to 10 mm polyps in the sigmoid colon,removed with a cold snare. Resected and retrieved. - Four 3 to 5 mm polyps in the sigmoid colon,removed with a cold biopsy forceps. Resected andretrieved. Recommendation: - Await pathology results. - No repeat colonoscopy due to age unlessclinically indicated. - If you experience any rectal bleeding orsignificant abdominal pain, please contact my office . If you experience bleeding and/or painafter hours, please contact the GI fellow online banking specialist orproceed to the nearest ER. - Findings and recommendations discussed withpatient and her daughter after the procedure. Attending Participation: I personally performed the entire procedure. Electronically Signed By: Justice Vargas MD Edilberto Vargas M.D. 05/04/2025 3:42:27 PM Number of Addenda: 0 Note Initiated On: 05/04/2025 2:21 PM Edilberto Vargas MD PhD ENDOSCOPY PROCEDURES Final Result * POCT glucose (05/04/2025 2:08 PM CDT) Glucose, POC 77 70 - 199 mg/dL Comment: Interpretive Data Glucose is assumed to be non-fasting. Fasting Glucose reference ranges are: 0 - 150 years: 70 mg/dL - 99 mg/dL Current interpretive data was last revised on 2014. POC Performer [id number] [employer] POC Device Number [id number] CERNER [employer] Blood 05/04/2025 2:08 PM CDT 05/04/2025 2:08 PM CDT Edilberto Vargas MD PhD LAB POCT ORDERABLES - DEVICE Final Result Performing Organization Address [facility] Co de Phone Number [facility] [employer] [phone] [employer] [place] [phone] * POCT glucose (05/03/2025 11:09 AM CDT) Glucose, POC 103 70 - 199 mg/dL Comment: Interpretive Data Glucose is assumed to be non-fasting. Fasting Glucose reference ranges are: 0 - 150 years: 70 mg/dL - 99 mg/dL Current interpretive data was last revised on 2014. POC Performer [id number] [employer] POC Device Number [id number] [employer] Blood 05/03/2025 11:0 9 AM CDT 05/03/2025 11:09 AM CDT Sea Ignacio MD LAB POCT ORDERABLES - DEVICE Final Result Performing Organization Address City/[facility]/ZIP Co de Phone Number [facility] [employer] [id number] [place] [address] * Colonoscopy (05/03/2025 10:30 AM CDT) Anatomical Region Laterality Modality Other Narrative Procedure Note Sea Ignacio MD - 05/03/2025 10:30 AM CDT ENDOSCOPY LAB Patient Name: Walker Hilliard Procedure Date: 05/03/2025 10:30 AM Date of : 1945 Admit Type: Outpatient Age: 79 Gender: Female Attending MD: Sea Ignacio M.D., Room: [facility] ENDOSCOPY ROOM 03 Note Status: Finalized Procedure: Colonoscopy Indications: Therapeutic procedure for colon polyps, . Had colonoscopy 01/19/25 for RYLEY, found to have numerous colon polyps. has been off anticoagulation and antiplatelet therapy since 02/2025. 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 Referring MD: Amanda Bowser PA-C, Lopez Pool M.D., Humza Ledesma M.D. Medicines: Monitored Anesthesia Care Complications: No immediate complications. Estimated Blood Loss: Estimated blood loss: none. Procedure: Pre-Anesthesia Assessment: - Prior to the procedure, a History and Physicalwas performed, and patient medications, allergies and sensitivities were reviewed. The patient'stolerance of previous anesthesia was reviewed. - The risks and benefits of the procedure and the sedation options and risks were discussed with the patient. All questions were answered and informed consent was obtained. - Immediately prior to administration ofmedications, the patient was re-assessed for adequacy to receive sedatives. The benefits, risks and alternatives of theprocedure and sedation were discussed and informed consentwas obtained. All questions were answered. Please referto the signed informed consent document in the medical record. The scope was passed under direct vision.The [id number] was introduced through the anuswith the intention of advancing to the ileum. The scopewas advanced to the sigmoid colon before the procedurewas aborted. Medications were given. The colonoscopywas performed without difficulty. The patient tolerated the procedure well. The quality of the bowel preparation was evaluated using the BBPS (BostonBowel Preparation Scale) with scores of: Left Colon = 1 (portion of mucosa seen, but other areas not wellseen due to staining, residual stool and/or opaqueliquid). The total BBPS score equals 1. The quality of the bowel preparation was inadequate. Findings: A large amount of semi-liquid stool was found in the rectum and inthe sigmoid colon, precluding visualization. Impression: - Preparation of the colon was inadequate. - Stool in the rectum and in the sigmoid colon. - No specimens collected. Recommendation: - Repeat colonoscopy at appointment to be scheduled because the bowel preparation was poor. Ifprocedure is scheduled tomorrow, she should remain on a clear liquid diet today and complete an additional full split Golytely prep tonight and tomorrow morning.If scheduled another day, she needs a two day prep.The procedure should be scheduled in at least a onehour block due to know large number of polyps (38counted on last exam). Attending Participation: I personally performed the entire procedure. Electronically signed by Sea Ignacio MD Sea Ignacio M.D. 05/03/2025 10:48:41 AM Number of Addenda: 0 Note Initiated On: 05/03/2025 10:30 AM Sea Ignacio MD ENDOSCOPY PROCEDURES Final Result * POCT glucose (05/03/2025 9:21 AM CDT) Glucose, POC 104 70 - 199 mg/dL Comment: Interpretive Data Glucose is assumed to be non-fasting. Fasting Glucose reference ranges are: 0 - 150 years: 70 mg/dL - 99 mg/dL Current interpretive data was last revised on 2014. POC Performer [id number] ALONA FRAGAWCH POC Device Number [id number] ALONA FR[employer]AWCH Blood 05/03/2025 9:21 AM CDT 05/03/2025 9:21 AM CDT Sea Ignacio MD LAB POCT ORDERABLES - DEVICE Final Result Performing Organization Address [facility] de Phone Number ALONA FLAK[employer]CH [address] [facility] [place] [address] * CELESTINA ab ql w/rflx to CELESTINA qn (04/13/2025 11:37 AM CDT) Pathologist [facility] CELESTINA Negative Comment: Interpretive Data Normal range [...] ORDERABLES Fin al Result Performing Organization Address [facility]/ZIP Co de Phone Number ALONA [facility] Department [place] [address] * (ABNORMAL) eGFR (04/13/2025 11:37 AM CDT) [...] ORDERABLES Fin al Result Performing Organization Address [facility] Co de Phone Number ALONA [facility] Department [place] [address] * Smooth muscle antibody, qualitative (04/13/2025 11:37 AM CDT) Anti-smooth muscle Negative Negative Blood 04/13/2025 11:3 7 AM CDT 04/13/2025 12:19 PM CDT Natalia Pino NP LAB BLOOD ORDERABLES Fin al Result Performing Organization Address City/[facility] Co de Phone Number CERNER [facility] Department [place] [address] * (ABNORMAL) Pro B-type natriuretic peptide (04/13/2025 [...] BLOOD ORDERABLES Final Result ALONA FRAGA [facility] Department [place] [address] * (ABNORMAL) Pro B-type natriuretic peptide (04/13/2025 [...] NP LAB BLOOD ORDERABLES Final Result ALONA [facility] Department [place] [address] * (ABNORMAL) Thyroid Function [place] (04/13/2025 11:37 AM CDT) Pathologist [facility] TSH 5.23(H) 0.30 - 4.20 mcIUnit/mL Blood 04/13/2025 11:3 7 AM CDT 04/13/2025 12:19 PM CDT Lopez Pool MD LAB BLOOD ORDERABLES Final Re sult Performing Organization Address City/[facility] Co de Phone Number [facility] Department [place] [address] * Mitochondrial antibodies, qualitative (04/13/2025 11:37 AM CDT) [facility] Anti-mitochond rial Negative Negative Blood 04/13/2025 11:3 7 AM CDT 04/13/2025 12:19 PM CDT Natalia Pino NP LAB BLOOD ORDERABLES Fin al Result Performing Organization Address [facility] de Phone Number [facility] [place] [address] * Hepatitis C antibody Blood (04/13/2025 11:37 AM CDT) [facility] Hep C Ab Nonreactive Nonreactive Comment:Antibodies to HCV no t detected. Does NOT exclude the possibility of recent exposure to HCV. Current interpretive data was last revised on 22 Blood 04/13/2025 11:3 7 AM CDT 04/13/2025 12:19 PM CDT Natalia Pino NP LAB MICROBIOLOGY - GENER AL ORDERABLES Final Result Performing Organization Address [facility] Co de Phone Number [facility] [place] [address] * Hepatitis A antibody, IgM Blood (04/13/2025 11:37 AM CDT) Hep A IgM Nonreactive Nonreactive Blood 04/13/2025 11:3 7 AM CDT 04/13/2025 12:19 PM CDT Natalia Pino LAB MICROBIOLOGY - GENER AL ORDERABLES Final Result Performing Organization Address [facility] de Phone Number [facility] [place] [address] * Hepatitis A antibody, total Blood (04/13/2025 11:37 AM CDT) Hep A total Nonreactive Nonreactive Blood 04/13/2025 11:3 7 AM CDT 04/13/2025 12:19 PM CDT [facility] LAB MICROBIOLOGY - GENER AL ORDERABLES Final Result Performing Organization Address [facility] Phone Number [facility] [place] [address] * [id number], Tumor Marker (04/13/2025 11:37 AM CDT) Pathologist [facility] alpha Fetoprotein 5.9 <=8.3 ng/mL Comment: Interpretive [...] 2018;[id number] Chang Mendez et al. Clin Chem 2014;0618-4872. Current interpretive data was last revised 2022. Blood 04/13/2025 11:3 7 AM CDT 04/13/2025 12:19 PM CDT Natalia Pino NP LAB BLOOD ORDERABLES Fin al Result Performing Organization Address [facility] Co de Phone Number [facility] [place] [address] * Hepatitis B core antibody, total Blood (04/13/2025 11:37 AM CDT) Hep B core IgG/IgM Nonreactive Nonreactive Blood 04/13/2025 11:3 7 AM CDT 04/13/2025 12:19 PM CDT Natalia Pino NP LAB MICROBIOLOGY - GENER AL ORDERABLES Final Result Performing Organization Address [facility] [place] [facility] de Phone Number [facility] [place] [address] * Hepatitis B surface antibody (immune status) [...] AL ORDERABLES Final Result Performing Organization Address [facility] [place] [address] * Hepatitis B Surface Antigen Blood (04/13/2025 11:37 AM CDT) HepBsAg Nonreactive Nonreactive Blood 04/13/2025 11:3 7 AM CDT 04/13/2025 12:19 PM CDT Natalia Pino NP LAB MICROBIOLOGY - GENER AL ORDERABLES Final Result Performing Organization Address [facility] Co de Phone Number [facility] [place] [address] * Protime-INR (04/13/2025 11:37 AM CDT) PT 11.1 9.7 - 13.0 sec INR 1.03 0.90 - 1.20 [facility] Comment: Interpretive data Oral anticoagulant [...] ORDERABLES Fin al Result Performing Organization Address [facility] de Phone Number [facility] [place] [address] * T4, free (04/13/2025 11:37 AM CDT) Free T4 1.42 0.90 - 1.70 ng/dL Blood 04/13/2025 11:3 7 AM CDT 04/13/2025 12:19 PM CDT Narrative [facility] - 04/13/2025 1:22 PM CDT This test was reflexed from a TSH result. Lopez Pool MD LAB BLOOD ORDERABLES Final Re sult Performing Organization Address City/[facility] Co de Phone Number [facility] [place] [address] * (ABNORMAL) Gamma GT (04/13/2025 11:37 AM CDT) GGT 114(H) 5 - 35 Units/L Blood 04/13/2025 11:3 7 AM CDT 04/13/2025 12:19 PM CDT Natalia Pino NP LAB BLOOD ORDERABLES [facility] al Result [facility] Department [place] [address] * (ABNORMAL) Comprehensive metabolic panel (04/13/2025 11:37 AM CDT) Pathologist [facility] Sodium 144 135 - 145 mmol/L Potassium, pl 4.2 3.3 - 4.9 mmol/L [facility] Chloride 106 97 - 110 mmol/L [facility] CO2 28 22 - 32 mmol/L [facility] Anion gap 10 2 - 15 mmol/L [facility] BUN 27(H) 6 - 25 mg/dL [facility] Creatinine 1.44(H) 0.60 - 1.10 mg/dL [facility] Glucose 120 70 - 199 mg/dL [facility] Comment: Interpretive Data Fasting glucose >/= 126 [...] 2022. Calcium 9.6 8.5 - 10.3 mg/dL CERNER [facility] Bilirubin, total 0.2 0.1 - 1.2 mg/dL [facility] Protein, pl 7.2 6.5 - 8.5 g/dL [facility] Albumin 3.7 3.5 - 5.0 g/dL [facility] Alk phos 142(H) 40 - 130 Units/L [facility] ALT 26 7 - 45 Units/L [facility] AST 51(H) 10 - 45 Units/L [facility] Blood 04/13/2025 11:3 7 AM CDT 04/13/2025 12:19 PM CDT Natalia Pino CRATING AND MOVING ESTIMATOR LAB BLOOD ORDERABLES Fin al Result Performing Organization Address [facility]/ZIP Co de Phone Number [facility] Department [place] [address] * (ABNORMAL) CBC with auto differential (04/04/2025 [...] NO LAB FOUND SCRIBED eGFR in NonAfrican [place] 31 >89 TXP NO LAB FOUND Blood 04/04/2025 12:5 3 PM CDT us Lopez Pool MD LAB BLOOD ORDERABLES Final Re sult TXP NO LAB FOUND * Cardiology Document Scan (03/28/2025 7:40 AM CDT) Anatomical Region Laterality Modality Other Nicholas Benites MD PhD [facility] [place] OCEDURES Final Result * DEVICE CHECK - REMOTE (03/20/2025 3:31 AM CDT) Anatomical Region Laterality Modality Other 03/20/2025 3:31 AM CDT Narrative 04/10/2025 10:43 AM CDT Interpretation Summary: Battery and Leads (BL) Normal parameters noted on battery and lead(s) --- 1 years remaining (this is an estimate based on prior usage) Presenting Rhythm (WV) Atrial Sensing () --- Atrial tach at 160 bpm Ventricular Pacing (QUALITY ASSURANCE QA LAB ANALYST) --- rate 60 Arrhythmic events (AE) No [...] estimate based on prior usage) Presenting Rhythm (WV) Atrial Sensing () --- Atrial tach at 160 bpm Ventricular Pacing (QUALITY ASSURANCE QA LAB ANALYST) --- rate 60 Arrhythmic events (AE) No [...] AM CDT Narrative 03/06/2025 2:56 PM CDT [facility] [place] [address] Transesophageal Echocardiographic Report Patient Name: WALKER HILLIARD L : 1945 (79y 9m) Gender: F Study Date: 03/06/2025 09:23:36 AM Ht(Inch): Wt(Lb): BSA: Head Kiln Operator: Location: [facility] Order Provider: NICHOLAS BENITES BMI: Ref Provider: [...] Procedure Note Adriel Bean MD - 03/06/2025 [facility] [place] [place] [address] Transesophageal Echocardiographic Report Patient Name: WALKER HILLIARD L : 1945 (79y 9m) Gender: F Study Date: 03/06/2025 09:23:36 AM Ht(Inch): Wt(Lb): BSA: Head Kiln Operator: Location: [facility] Order Provider: NICHOLAS BENITES BMI: Ref Provider: [...] POC 139 70 - 199 mg/dL ALONA [facility] Blood 03/06/2025 8:44 AM CDT 03/06/2025 8:44 AM CDT us Juan David Vargas RN LAB POCT ORDERABLES - DEV ICE Final Result [facility] Department [place] [address] * SCAN - LABS (02/13/2025) us Provider Scanning Final Result * (ABNORMAL) Lipid panel (02/02/2025 5:20 AM [...] revised on 2018. Triglycerides 241(H) <=149 mg/dL [facility] Comment: Interpretive Data Ages < [...] revised on 2018. HDL 35(L) >=40 mg/dL [facility] Comment: Interpretive Data Ages < [...] on 2018. LDL, calculated 140(H) <=129 mg/dL [facility] Comment: Interpretive Data Ages < [...] revised on 2024. Non-HDL Cholesterol 184 mg/dL [facility] Comment: Interpretive Data Ages < [...] last revised on 2018. Chol/HDL ratio 6 [facility] Blood 02/02/2025 5:20 AM CDT 02/02/2025 5:37 AM CDT Narrative [facility] - 02/02/2025 8:51 AM CDT reflex us Nicholas Benites MD PhD LAB BLOOD ORDERABLES F inal Result [facility] Department [place] [address] * (ABNORMAL) POCT hemoglobin A1c (01/17/2025 11:45 [...] and children were not included. (Diabetes Care 31:[id number], 2008). The eAG is not equivalent to a fasting glucose. Blood 01/17/2025 11:4 5 AM CDT 01/17/2025 11:45 AM CDT us Nicholas Benites MD PhD POINT OF CARE TEST ORD ERABLES Final Result [facility] [place] [address] * Dexa Bone Density (01/11/2019 2:40 PM [...] by the International Society of Clinical Densitometry. [id number] Berlin Escobar MD IMG DXA PROCEDURES Final Resul t from Last 3 Months or Most Recently Relevant to Health Maintenance Insurance MEDICARE [facility] MEDICARE SUPPLEMENT [facility] MEDICARE [facility] ([address] [address] MEDICARE [facility] Address: [address] [address] [place] [address] [facility] MEDICARE SUPPLEMENT Member Subscriber Plan / Payer (Ef fective 2019-Present) Name:Walker Hilliard Relation to Subscriber:Self Name:Walker Hilliard Payer ID:[id number] Group ID:[id number] Type:COMMERCIAL Address: [address] Advance Directives For more information, please contact: [phone] * Full Code (Latest Code Status on File) Date Activated Date Inactivated Comments 05/04/2025 1:49 PM 05/04/2025 8:15 PM * Full Code Date Activated Date Inactivated Comments 05/03/2025 10:25 AM 05/03/2025 3:33 PM * Full Code Date Activated Date Inactivated Comments 02/01/2025 3:52 [...] unless specifically selected below: No intubationNo cardioversion Care 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
--- OUTSIDE RECORDS SUMMARY | 2025-05-09 10:52 | XMS_ITS | Clinical Summary ---
Author Organization [facility] Address [address] [place] [address] Care Team Providers Care Oil Change Technician Name Role Phone Hema Castaneda MD Unavailable [phone] Colleen Bain MD Unavailable [phone] Rosette Espinoza MD Unavailable [phone] Lopez Pool MD Primary Care Provider [phone] Jacqueline Schaeffer RN Unavailable Unavailable Anat Hutchison [...] 1 tablet (137 mcg total) by mouth disintegrator before breakfast 08/20/[address] [...] instructions on package. For any questions call [phone]. 4000 mL 04/12/20 25 025 Discontin ued(Thera py completed ) polyethylene glycol (GoLYTELY) 236-22.74-6.74 -5.86 gram solution Follow Mychart instructions from Dr. Ignacio's office, do not follow instructions on package. For any questions call [phone]. 4000 mL 05/03/20 25 025 Discontin ued(Thera [...] what she can do for physical exercise. Chappell on eating healthy diet. Avoid sweetened beverages. [...] aortic aneurysm (AAA) 01/13 Gastrointestinal hemorrhage 01/13/2025 halfway current use of amiodarone 07/22/2024 Acquired hypothyroidism 12/08/2022 Assessment & Plan (10/01/2023 7:53 PM ASSISTANT QUALITY MANAGER): Symptomatically euthyroid but recent TSH elevated. Has [...] prescribed Assessment & Plan (12/09/2022 9:54 AM ASSISTANT QUALITY MANAGER): -Labs dated 10/03/22: FT4 was 0.49, TSH [...] 12/19/2019 Assessment & Plan (10/01/2023 7:56 PM ASSISTANT QUALITY MANAGER): Glucoses high but needs reliable test strips. [...] podiatry Assessment & Plan (12/09/2022 9:54 AM ASSISTANT QUALITY MANAGER): -Currently prescribed insulin -metformin has been discontinued [...] podiatry Assessment & Plan (11/15/2021 11:27 AM ASSISTANT QUALITY MANAGER): -Currently prescribed insulin and metformin -A1C recently [...] 12/19/2019 Assessment & Plan (10/01/2023 7:54 PM ASSISTANT QUALITY MANAGER): Continue statin, optimize glycemic control. Assessment & [...] effects Assessment & Plan (12/08/2022 8:55 AM ASSISTANT QUALITY MANAGER): -Lipid panel on 03/03/22: TC 108, trig [...] effects Assessment & Plan (11/15/2021 11:23 AM ASSISTANT QUALITY MANAGER): -Will continue statin as it is being tolerated without side effects Stage 3b chronic kidney disease 03/20/2019 Assessment & Plan (10/01/2023 7:55 PM ASSISTANT QUALITY MANAGER): Need optimal glycemic control, minimize risk of hypoglycemia. Assessment & Plan (06/15/2023 3:56 PM CDT): -CKD increases risk of hypoglycemia -Will closely monitor glucose pattern in ensure margin of safety Assessment & Plan (03/09/2023 8:23 AM CDT): -CKD increases risk of hypoglycemia -Will closely monitor glucose pattern in ensure margin of safety Assessment & Plan (12/08/2022 8:56 AM ASSISTANT QUALITY MANAGER): -CKD increases risk of hypoglycemia -Will closely [...] monitor. Assessment & Plan (11/11/2021 12:00 PM ASSISTANT QUALITY MANAGER): -CKD increases risk of hypoglycemia -Will closely [...] time. Assessment & Plan (12/09/2022 9:54 AM ASSISTANT QUALITY MANAGER): -BP was 128/85 -Will continue same antihypertensive [...] MARI Assessment & Plan (11/11/2021 11:59 AM ASSISTANT QUALITY MANAGER): -Will continue same antihypertensive medications at this time. Assessment & Plan (04/08/2019 7:29 AM CDT): Recent changes in medications. Defer to her Cardiology team Breast cancer ([facility]) 07/13/2018 Overview (07/13/2018): L radical mastectomy with chemo and XRT x 35 [phone]. Assessment & Plan (03/17/2022 10:47 AM CDT): [...] AM CDT): C/w home anastrozole Stroke (cerebrum) ([facility]) 07/13/2018 Overview (07/13/2018): R body weak and [...] (goal 2-3) - cont sotolol, renally dosed halfway current use of anticoagulant therapy 0 03/24/2018 [...] dysfunction 02/22/2010 Chronic diastolic congestive heart failure ([facility]/ HCC) 02/22/2010 Assessment & Plan (03/17/2022 10:47 [...] CDT - 05/04/2025 3:15 PM CDT Surgery [facility] Endoscopy [address] [place] [address] Edilberto Vargas MD PhD COLON REMOVAL SNARE 05/04/2025 2:29 PM CDT Anesthesia Event [facility] Endoscopy [address] [place] [address] Isai ChloeDO Law Albert M., MD 05/04/2025 1:38 PM CDT - 05/04/2025 4:15 PM CDT Hospital Encounter [facility] Endoscopy [address] [place] [address] Edilberto Vargas MD PhD Iron deficiency anemia, unspecified iron deficiency anemia type; Abnormal colonoscopy Discharge Disposition: Discharge to home or self care 05/03/2025 10:28 AM CDT Anesthesia Event [facility] Endoscopy [address] [place] [address] Dominick Foy MD 05/03/2025 9:45 AM CDT - 05/03/2025 10:30 AM CDT Surgery [facility] Endoscopy [address] [place] [address] Sea Ignacio MD COLONOSCOPY 05/03/2025 8:33 AM CDT - 05/03/2025 11:27 AM CDT Hospital Encounter [facility] Endoscopy [address] [place] [address] Sea Ignacio MD Discharge Disposition: Discharge to home or self care 05/03/2025 Telephone [facility] Gastroenterology [address] [facility] 2nd Floor [address] [place] [address] Kavya Dunbar LPN 05/03/2025 Orders Only [facility] Gastroenterology [address] [facility] 2nd Floor [address] [place] [address] Sea Ignacio MD Iron deficiency anemia, unspecified iron deficiency anemia type (Primary Dx); Abnormal colonoscopy 04/17/2025 Results Follow-Up [facility] Gasteroenterolog y [address] [facility] 12th [place] [address] [place] [address] Natalia Pino NP [id number], Tumor Marker, Smooth muscle antibody, qualitative, Mitochondrial antibodies, qualitative, Additional followed-up results: 11 04/14/2025 Documentation [facility] Gastroenterology [address] [facility] 2nd Floor [address] [place] [phone] Zeny Grewal LPN GI ASSESSMENT 04/13/2025 11:55 AM CDT Lab [facility] ([facility]) [address] [place] [phone] 04/13/2025 11:40 AM CDT Lab [facility] ([facility]) [address] [place] [phone] Cirrhosis of liver without ascites, unspecified hepatic cirrhosis type (HCC); Chronic diastolic congestive heart failure (HCC) 04/13/2025 11:00 AM CDT Office Visit [facility] Gastroenterology [address] [place] [address] 12th [place] [address] [place] [address] Natalia Pino NP Cirrhosis of liver without ascites, unspecified hepatic cirrhosis type (HCC) (Primary Dx) 04/13/2025 Orders Only [facility] Gastroenterology [address] [place] [address] 12th [place] [address] [place] [address] Alis Parsons, RN Cirrhosis of liver without ascites, unspecified hepatic cirrhosis type (HCC) (Primary Dx) 04/12/2025 Orders Only [facility] Gastroenterology [address] [place] [address] [address] [place] [phone] Zeny Grewal LPN 04/06/2025 Orders Only [facility] Gastroenterology [address] [facility] 2nd Floor [address] [place] [phone] Zeny Grewal LPN Iron deficiency anemia, unspecified iron deficiency anemia type (Primary Dx); Abnormal colonoscopy 04/05/2025 Telephone [facility] Gastroenterology [address] [facility] 12th [place] [address] [place] [address] Edel Rainey 04/03/2025 Results Follow-Up [facility] Cardiology [address] [place] [address] 8th [place] [address] [place] [address] Nicholas Benites MD PhD Cardiology Document Scan 03/28/2025 Orders Only [facility] CARDIOLOGY Nicholas Benites MD PhD 03/28/2025 Telephone [facility] Cardiology [address] [place] [address] 8th [place] [address] [place] [address] Nicholas Benites MD PhD 03/20/2025 11:00 AM CDT Office Visit [facility] Cardiology [facility] Medical Office Building [address] [place] [address] Jesika Ewing NP Paroxysmal atrial fibrillation (HCC) (Primary Dx) 03/20/2025 Orders Only [facility] Cardiology [facility] Medical Office Building [address] [place] [address] Rosette Espinoza MD 03/06/2025 9:42 AM CDT Anesthesia Event [facility] [address] [place] [phone] Kirstie Vuong MD 03/06/2025 6:59 AM CDT - 03/06/2025 11:59 PM CDT Hospital Encounter [facility] [address] [place] [phone] Kirstie Vuong MD Atrial fibrillation, unspecified type (HCC) Discharge Disposition: Discharge to home or self care 03/06/2025 Results Follow-Up [facility] Cardiology [address] [place] [address] 8th [place] [address] [place] [address] Nicholas Benites MD PhD Transesophageal Echocardiogram (MARIO) W Possible Cardioversion 03/06/2025 Documentation [facility] Cardiology [address] [place] [address] 8th [place] [address] [place] [address] Adriel Bean MD 03/03/2025 Telephone [facility] Cardiology [address] [facility] Medical Office Building [address] [place] [address] Rosette Espinoza MD 03/03/2025 SHOP/CHAP Subsequent Outreach [facility] CASE MANAGEMENT [address] [place] [address] Zeynep Pérez, MIRI 03/02/2025 Telephone [facility] Cardiology [address] [facility] 8th [place] [address] [place] [phone] Valery Zavala rescheduling LAAO visits 03/02/2025 Telephone [facility] [address] [place] [address] Christal Stark, MIRI 03/01/2025 SHOP/CHAP Subsequent Outreach [facility] CASE MANAGEMENT [address] [place] [address] Zeynep Pérez, MIRI 02/27/2025 SHOP/CHAP Subsequent Outreach [facility] CASE MANAGEMENT [address] [place] [address] Olga Groves LCSW 02/23/2025 SHOP/CHAP Subsequent Outreach [facility] CASE MANAGEMENT [address] [place] [address] Jenni Snider RN 02/22/2025 SHOP/CHAP Subsequent Outreach [facility] CASE MANAGEMENT [address] [place] [address] Zeynep Pérez, MIRI 02/20/2025 Telephone [facility] Transplant Heart [address] [facility] [address] [phone] [place] [address] Jacqueline Schaeffer RN 02/20/2025 SHOP/CHAP Subsequent Outreach [facility] CASE MANAGEMENT [address] [place] [address] Zeynep Pérez, MIRI 02/17/[address] 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 Transplant Heart [address] [place] [address] [address] 08-04-021 [place] [address] Alison Nye 02/09/2025 SHOP/CHAP Subsequent Outreach [facility] OP CASE MANAGEMENT [address] [place] [phone] Zeynep Pérez RN from Last 3 Months Immunizations Immunization Administration [...] no BSO MASTECTOMY, RADICAL 10/19/2014 - 10/18/2015 Left breast and nodes BLADDER SURGERY 2012 and 2014 Endoscopic cancer removal CATARACT EXTRACTION, BILATERAL 10/19/2015 - 10/18/2016 CARDIOVERSION 10/19/2021 - 10/18/2022 N/A [facility] - pt reported CARDIOVERSION 10/19/2023 - 10/18/2024 N/A [facility] - pt reported TRACHEOSTOMY [facility] CYSTOSCOPY TRANSURETHRAL RESECTION OF BLADDER TUMOR 10/19/2024 - 11/18/2024 CARDIAC PACEMAKER PLACEMENT 10/14/2017 Right [place] Sci/Guidant dual chamber PPM UPPER GASTROINTESTINAL ENDOSCOPY 11/01/2024 US ABDOMEN COMPLETE W LIVER DOPPLER (C) 02/01/2025 Right IMPLANTABLE CARDIAC DEVICE 02/01/2025 N/A Procedure: PERC CHELI CLOSE W/IMPLANT 56695; Surgeon: Nicholas Benites MD PhD; Location: [facility] CARDIAC SUPER[facility]OR [employer]; Service: Cardiovascular; Laterality: N/A; Medical devices from this surgery are in the Medical Devices section. TRANSURETHRAL RESECTION OF BLADDER TUMOR 11/15/2024 Medical History Medical History Date Comments Physical deconditioning 07/13/2018 Former cigarette smoker 07/13/2018 Class 2 obesity in adult 07/13/2018 Anemia 07/13/2018 Depression 07/13/2018 Essential hypertension 07/13/2018 Breast cancer (HCC) 07/13/2018 L radical ma stectomy with chemo and XRT x 35 [phone]. Other emphysema (HCC) 01/11/2019 Chest pain Atrial fibrillation (HCC) CHF (congestive heart failure) (HCC) Heart murmur Hyperlipidemia Diabetes mellitus (HCC) Stroke (HCC) Sleep apnea Sinus bradycardia 08/28/2017 Atrial flutter (HCC) 01/21/2019 Coronary artery disease Bladder cancer (HCC) Family History Medical History Relation Name Comments [...] = 0.6 oz pur e alcohol) minimal [facility] Utilities Answer Date Recorded In the past 12 months has th e [employer], gas, oil, or water [employer] threatened to shut off services in your [...] week 02/03/2025 How often do you attend [facility] or gnosticism services? Never 02/03/2025 Do you belong to any clubs o r organizations such as yarsanism groups, unions, fraternal or athletic groups, or [...] place to sleep or slept in a care home (including now)? No 03/14/2022 Housing Stability Vital [...] were you homeless or living in a care home (including now)? No 02/03/2025 Personal Safety Answer Date Recorded Have you ever been in or are you currently in a harmful physical or emotional relationship or is someone making you feel afraid or unsafe? 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 Not on file Not on file Not [...] 05/04/2025 1:45 PM CDT Plan of Treatment Health Maintenance Due Date Last Done Comments Albumin Creatinine Ratio, Urine 1945 Dilated Eye Exam 1945 Foot Exam 1945 Zoster Vaccine (1 of 2) 1962 Well Visit 65+ 2008 DTaP/Tdap/Td Vaccine (2 - Td or Tdap) 09/24/2022 09/24/2012 Depression Screening 03/13/2023 03/13/2022 Influenza Vaccine (#1) 2025 , 07/26/2019, 07/15/2018, Additional history exists Hemoglobin A1C 07/19/2025 01/17/2025, 09/18, 12/09/2022, Additional history exists Lipid Panel 02/02/2026 02/02/2025, 08/19, 03/03/2022, Additional history exists eGFR 04/13/2026 04/13/2025, 03/19, 02/02/2025, Additional history exists Fall Risk Assessment 05/04/2026 05/04/2025 Osteoporosis Screening-Bone Density Scan 04/19/2027 04/19/2025, 04/15/2022, 04/02/2021, Additional history exists Pneumococcal vaccine 65+ Completed 018, 07/21/2016, 06/07/2014 Hepatitis B Screening Completed 04/13/2025 Medical Devices Implanted Type Area Service Superintendent Device Identifier Shelf Expiration Date Model / Serial / Lot [employer] Occluder Cvasc Cheli Flexible Braided Amplatzer Amulet 28mm Nitinol 8-Izj7-831-0 28 - [id number] - [id number] Implanted:Qt y: 1 on 02/01/2025 by Nicholas Benites MD PhD at [facility] Left Atrial Appendage Occluder Left: Atrial Appendage [employer] 2029 9-ACP2-0 10-028 / [id number] / [id number] Pacemaker Pacemaker Right: Chest [employer] System Closure Repair Femoral Artery Suture Mediated Perclose Prostyle 15581-26 - [id number] - [id number] Implanted:Qt y: 1 on 02/01/2025 by Nicholas Benites MD PhD at [facility] Vascular Closure Device Left: Femoral Vein [employer] 11/18/2026 26152-10 / [id number] / [id number] [employer] System Closure Repair Femoral Artery Suture Mediated Perclose Prostyle 67909-38 - [id number] - [id number] Implanted:Qt y: 1 on 02/01/2025 by Nicholas Benites MD PhD at [facility] Vascular Closure Device Right: Femoral Vein [employer] 04/17/2026 61128-03 / [id number] / [id number] Procedures Procedure Name Priority Date/Time Associated Diagnosis [...] without ascites, unspecified hepatic cirrhosis type (HCC) [id number], TUMOR MARKER Routine 04/13/2025 11:37 AM CDT [...] Routine (OP Routine) 01/11/2019 2:40 PM CDT 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 Fasting Glucose reference ranges are: 0 - 150 years: 70 mg/dL - 99 mg/dL Current interpretive data was last revised on 2014. POC Performer [id number] [facility] POC Device Number [id number] [facility] Blood 05/04/2025 3:43 PM CDT 05/04/2025 3:43 PM CDT Edilberto Vargas MD PhD LAB POCT ORDERABLES - DEVICE Final Result Performing Organization Address City/State/ZIP Co mo Phone Number [facility] [address] [facility] Department [place] [address] * Surgical pathology (05/04/2025 2:48 PM CDT) Tissue (Polyp(s), colon/colorectal, esophageal, gastric) 05/04/2025 2:48 PM CDT Comment:Snare 1 Forceps 1 Tissue specimen (specimen) (Polyp(s), colon/colorectal, esophageal, gastric) 05/04/2025 2:53 PM CDT Comment:Snare 6 Forceps 2 Tissue specimen (specimen) (Polyp(s), colon/colorectal, esophageal, gastric) 05/04/2025 3:08 PM CDT Comment:Snare 6 Forceps 4 Narrative PATHOLOGY [facility] - 05/05/2025 1:13 PM CDT EPIC results best viewed via link to PDF [facility] [place] [address] Note to Patients: This report may contain [...] Gender: F : 1945 (Age: 79) Address: [address] [place] [address] Hospital #: [id number] Taken:05/04/2025 Received:05/04/2025 Reported: 05/05/2025 Patient Type: [facility] EP SAME Client [facility] Service: Gastro Location: Physician(s): Diana Virk M.D. Amanda Aolnso PA-C Diagnosis: A. Large bowel, cecum and ascending colon, polyps, biopsy: - Fragments of tubular adenomas B. Large bowel, transverse and descending colon, polyps, biopsy: - Fragments of tubular adenomas C. Large bowel, sigmoid colon, polyps, biopsy: - Fragments of tubular adenomas [facility]/05/05/2025 11:54 By this signature, I attest that [...] ascending polyps and consists of a multiple leizalde polypoid fragment(s) of soft tissue measuring 1.2 [...] interpretation for this case was performed at [facility], Department of Surgical Pathology, [address] [facility], [place] [id number], [place] [address] CLIA # [id number] The performance characteristics of some immunohistochemical stains, fluorescence in-situ hybridization tests and immunophenotyping by flow cytometry cited in this report (if any) were determined by the Surgical Pathology and Flow Cytometry Departments at [facility] as part of an ongoing software quality test engineer program and in compliance with federally mandated [...] Surgical Pathology and Flow Cytometry Departments of [facility]. It has not been cleared or approved by the U. S. Food and Drug Administration. IMAGES AND SCANNED DOCUMENTS, IF INCLUDED, ONLY VIEWABLE IN PDF VERSION OF REPORT Edilberto Vargas MD PhD LAB PATHOLOGY ORDERAB LES Final Result PATHOLOGY [facility] [phone] * Colonoscopy (05/04/2025 2:21 PM CDT) Anatomical Region Laterality Modality Other Narrative Procedure Note Edilberto Vargas MD PhD - 05/04/2025 2:21 PM CDT ENDOSCOPY LAB Patient Name: Walker Hilliard Procedure Date: 05/04/2025 2:21 PM Date of : 1945 Admit Type: Outpatient Age: 79 Gender: Female Attending MD: Edilberto Vargas M.D., Room: [facility] ENDOSCOPY ROOM 03 Note Status: Finalized [...] The scope was passed under direct vision.The [id number] was introduced through the anusand advanced to [...] painafter hours, please contact the GI fellow superannuation funds manager orproceed to the nearest ER. - Findings and recommendations discussed withpatient and her daughter after the procedure. Attending Participation: I personally performed the entire procedure. Electronically Signed By: Justice Vargas MD Edilberto Vargas M.D. 05/04/2025 3:42:27 PM Number of Addenda: 0 Note Initiated On: 05/04/2025 2:21 PM Edilberto aVrgas MD PhD ENDOSCOPY PROCEDURES Final Result * POCT glucose (05/04/2025 2:08 PM CDT) Glucose, POC 77 70 - 199 mg/dL Comment: Interpretive Data Glucose is assumed to be non-fasting. Fasting Glucose reference ranges are: 0 - 150 years: 70 mg/dL - 99 mg/dL Current interpretive data was last revised on 2014. POC Performer [id number] CERNER [employer] POC Device Number [id number] [facility] Blood 05/04/2025 2:08 PM CDT 05/04/2025 2:08 PM CDT Edilberto Vargas MD PhD LAB POCT ORDERABLES - DEVICE Final Result Performing Organization Address [facility] Co de Phone Number [facility] [address] [place] [address] * POCT glucose (05/03/2025 11:09 AM CDT) Glucose, POC 103 70 - 199 mg/dL Comment: Interpretive Data Glucose is assumed to be non-fasting. Fasting Glucose reference ranges are: 0 - 150 years: 70 mg/dL - 99 mg/dL Current interpretive data was last revised on 2014. POC Performer [id number] [facility] POC Device Number [id number] [facility] Blood 05/03/2025 11:0 9 AM CDT 05/03/2025 11:09 AM CDT us Sea Ignacio MD LAB POCT ORDERABLES - DEVICE Final Result Performing Organization Address City/[facility] Co de Phone Number [facility] [address] [place] [employer] [facility] [place] [address] * Colonoscopy (05/03/2025 10:30 AM CDT) Anatomical Region Laterality Modality Other Narrative Procedure Note Sea Ignacio MD - 05/03/2025 10:30 AM CDT ENDOSCOPY LAB Patient Name: Walker Hilliard Procedure Date: 05/03/2025 10:30 AM Date of : 1945 Admit Type: Outpatient Age: 79 Gender: Female Attending MD: Sea Ignacio M.D., Room: [facility] ENDOSCOPY ROOM 03 Note Status: Finalized Procedure: Colonoscopy Indications: Therapeutic procedure for colon polyps, . Had colonoscopy 01/19/25 for RYLEY, found to have numerous colon polyps. has been off anticoagulation and antiplatelet therapy since 02/2025. 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 Referring MD: Amanda Bowser, RIVIN, Lopez Pool M.D., Humza Ledesma M.D. Medicines: [...] The scope was passed under direct vision.The [id number] was introduced through the anuswith the intention [...] was last revised on 2014. POC Performer [id number] [facility] POC Device Number [id number] [facility] Blood 05/03/2025 9:21 AM CDT 05/03/2025 9:21 AM CDT us Sea Ignacio MD LAB POCT ORDERABLES - DEVICE Final Result [facility] [id number] [facility] Department [place] [address] * CELESTINA ab ql w/rflx to CELESTINA [...] LAB BLOOD ORDERABLES Fin al Result [facility] [address] [facility] Department [place] [address] * (ABNORMAL) eGFR (04/13/2025 11:37 AM CDT) [...] ORDERABLES Fin al Result Performing Organization Address City/[facility]/ZIP Co de Phone Number [facility] Department [place] [address] * Smooth muscle antibody, qualitative (04/13/2025 11:37 AM CDT) Pathologist [facility] Anti-smooth muscle Negative Negative Blood 04/13/2025 11:3 7 AM CDT 04/13/2025 12:19 PM CDT Natalia Pino WORKCELL OPERATOR LAB BLOOD ORDERABLES Fin al Result [facility] [place] [address] * (ABNORMAL) Pro B-type natriuretic peptide (04/13/2025 [...] as advanced age. - References: 1. Feliciano JL et.al. Eur Heart J. 2006:27:330-337. 2. Jorge Luis RW, Deisi DAVIS. J. AM Júnior Cardiol: Cardiovasc Imag. 2009;2: 216- 225. Interpretive Data Last Revised Date: 2018. Blood 04/13/2025 11:3 7 AM CDT 04/13/2025 12:19 PM CDT us Chanel Ponce NP LAB BLOOD ORDERABLES Final Result ALONA FRAGA [facility] Department [place] [address] * (ABNORMAL) Pro B-type natriuretic peptide (04/13/2025 [...] Heart J. 2006:27:330-337. 2. Jorge Luis RW, [place] AM. J. AM Júnior Cardiol: Cardiovasc Imag. 2009;2: 216- 225. Interpretive Data Last Revised Date: 2018. Blood 04/13/2025 11:3 7 AM CDT 04/13/2025 12:19 PM CDT Chanel Ponce NP LAB BLOOD ORDERABLES Final Result [facility]ONA [facility] [place] [address] * (ABNORMAL) Thyroid Function [place] (04/13/2025 11:37 AM CDT) TSH 5.23(H) 0.30 - 4.20 mcIUnit/mL Blood 04/13/2025 11:3 7 AM CDT 04/13/2025 12:19 PM CDT Lopez Pool MD LAB BLOOD ORDERABLES Final Re sult Performing Organization Address City/[facility] Co de Phone Number [facility] Department [place] [address] * Mitochondrial antibodies, qualitative (04/13/2025 11:37 AM CDT) Anti-mitochond rial Negative Negative Blood 04/13/2025 11:3 7 AM CDT 04/13/2025 12:19 PM CDT Natalia Pino NP LAB BLOOD ORDERABLES Fin al Result Performing Organization Address [facility] [place] [address] * Hepatitis C antibody Blood (04/13/2025 11:37 AM CDT) Hep C Ab Nonreactive Nonreactive Comment:Antibodies to HCV no t detected. Does NOT exclude the possibility of recent exposure to HCV. Current interpretive data was last revised on 22 Blood 04/13/2025 11:3 7 AM CDT 04/13/2025 12:19 PM CDT Natalia Pino NP LAB MICROBIOLOGY - GENER AL ORDERABLES Final Result Performing Organization Address City/[facility] Co de Phone Number [facility] [place] [address] * Hepatitis A antibody, IgM Blood (04/13/2025 11:37 AM CDT) Hep A IgM Nonreactive Nonreactive Blood 04/13/2025 11:3 7 AM CDT 04/13/2025 12:19 PM CDT Natalia Pino NP LAB MICROBIOLOGY - GENER AL ORDERABLES Final Result Performing Organization Address [facility] [place] [address] * Hepatitis A antibody, total Blood (04/13/2025 11:37 AM CDT) Hep A total Nonreactive Nonreactive Blood 04/13/2025 11:3 7 AM CDT 04/13/2025 12:19 PM CDT Natalia Pino NP LAB MICROBIOLOGY - GENER AL ORDERABLES Final Result Performing Organization Address [facility] de Phone Number [facility] Department [place] [address] * [id number], Tumor Marker (04/13/2025 11:37 AM CDT) [facility] alpha Fetoprotein 5.9 <=8.3 ng/mL Comment: Interpretive [...] 2018;57:783-797 Chang Mendez et al. Clin Chem 2014;2372-1371. Current interpretive data was last revised 2022. Blood 04/13/2025 11:3 7 AM CDT 04/13/2025 12:19 PM CDT Natalia Pino NP LAB BLOOD ORDERABLES Fin al Result Performing Organization Address [facility] de Phone Number ALONA [facility] [place] [address] * Hepatitis B core antibody, total Blood (04/13/2025 11:37 AM CDT) Hep B core IgG/IgM Nonreactive Nonreactive Blood 04/13/2025 11:3 7 AM CDT 04/13/2025 12:19 PM CDT Natalia Pino NP LAB MICROBIOLOGY - GENER AL ORDERABLES Final Result Performing Organization Address [facility] [place] [address] * Hepatitis B surface antibody (immune status) Blood (04/13/2025 11:37 AM CDT) Pathologist [facility] HBsAb (immune status) Nonreactive Comment:This result is consi stent with a lack of immunity to Hepatitis B Virus when used in the setting of routine screening. Current interpretative data was last revised on 22 Blood 04/13/2025 11:3 7 AM CDT 04/13/2025 12:19 PM CDT Natalia Pino NP LAB MICROBIOLOGY - GENER AL ORDERABLES Final Result Performing Organization Address [facility] de Phone Number ALONA [facility] Department [place] [address] * Hepatitis B Surface Antigen Blood (04/13/2025 11:37 AM CDT) HepBsAg Nonreactive Nonreactive Blood 04/13/2025 11:3 7 AM CDT 04/13/2025 12:19 PM CDT Natalia Pino NP LAB MICROBIOLOGY - GENER AL ORDERABLES Final Result Performing Organization Address [facility] Co de Phone Number [facility] [place] [address] * Protime-INR (04/13/2025 11:37 AM CDT) PT 11.1 9.7 - 13.0 sec INR 1.03 0.90 - 1.20 [facility] Comment: Interpretive data Oral anticoagulant [...] ORDERABLES Fin al Result Performing Organization Address [facility] Co de Phone Number [facility] [place] [address] * T4, free (04/13/2025 11:37 AM CDT) Pathologist [facility] Free T4 1.42 0.90 - 1.70 ng/dL Blood 04/13/2025 11:3 7 AM CDT 04/13/2025 12:19 PM CDT Narrative [facility] - 04/13/2025 1:22 PM CDT This test was reflexed from a TSH result. us Lopez Pool MD LAB BLOOD ORDERABLES Final Re sult Performing Organization Address [facility] [place] [address] * (ABNORMAL) Gamma GT (04/13/2025 11:37 AM CDT) GGT 114(H) 5 - 35 Units/L Blood 04/13/2025 11:3 7 AM CDT 04/13/2025 12:19 PM CDT Natalia Pino NP LAB BLOOD ORDERABLES Fin al Result [facility] Department [place] [address] * (ABNORMAL) Comprehensive metabolic panel (04/13/2025 11:37 AM CDT) Sodium 144 135 - 145 mmol/L Potassium, pl 4.2 3.3 - 4.9 mmol/L [facility] Chloride 106 97 - 110 mmol/L [facility] CO2 28 22 - 32 mmol/L [facility] Anion gap 10 2 - 15 mmol/L [facility] BUN 27(H) 6 - 25 mg/dL [facility] Creatinine 1.44(H) 0.60 - 1.10 mg/dL [facility] Glucose 120 70 - 199 mg/dL [facility] Comment: Interpretive Data Fasting glucose [...] Calcium 9.6 8.5 - 10.3 mg/dL [facility] Bilirubin, total 0.2 0.1 - 1.2 mg/dL [facility] Protein, pl 7.2 6.5 - 8.5 g/dL [facility] Albumin 3.7 3.5 - 5.0 g/dL [facility] Alk phos 142(H) 40 - 130 Units/L [facility] ALT 26 7 - 45 Units/L [facility] AST 51(H) 10 - 45 Units/L [facility] Blood 04/13/2025 11:3 7 AM CDT 04/13/2025 12:19 PM CDT Natalia Pino NP LAB BLOOD ORDERABLES Fin al Result Performing Organization Address [facility]/ZIP Co de Phone Number [facility] Department [place] [address] * (ABNORMAL) CBC with auto differential (04/04/2025 [...] ORDERABLES Final Re sult Performing Organization Address [facility] Co de Phone Number [place] NO LAB [...] NO LAB FOUND SCRIBED eGFR in NonAfrican Yemeni 31 >89 TXP NO LAB FOUND Blood 04/04/2025 12:5 3 PM CDT Lopez Pool MD LAB BLOOD ORDERABLES Final Re sult TXP NO LAB FOUND * Cardiology Document Scan (03/28/2025 7:40 AM CDT) Anatomical Region Laterality Modality Other Nicholas Benites MD PhD CV CARDIAC SERVICES NE OCEDURES Final Result * DEVICE CHECK - REMOTE (03/20/2025 3:31 AM CDT) Anatomical Region Laterality Modality Other 03/20/2025 3:31 AM CDT Narrative 04/10/2025 10:43 AM CDT Interpretation Summary: Battery and Leads (BL) Normal parameters noted on battery and lead(s) --- 1 years remaining (this is an estimate based on prior usage) Presenting Rhythm (NE) Atrial Sensing () --- Atrial tach at 160 bpm Ventricular Pacing (PACKAGING SALES) --- rate 60 Arrhythmic events (AE) No [...] estimate based on prior usage) Presenting Rhythm (NE) Atrial Sensing () --- Atrial tach at 160 bpm Ventricular Pacing (PACKAGING SALES) --- rate 60 Arrhythmic events (AE) No [...] PM CDT [facility] [place] [address] Transesophageal Echocardiographic Report Patient Name: WALKER HILLIARD L : 1945 (79y 9m) Gender: F Study Date: 03/06/2025 09:23:36 AM Ht(Inch): Wt(Lb): BSA: Filler Spreader: Location: [facility] Order Provider: NICHOLAS BENITES BMI: [...] - 03/06/2025 [facility] [place] [address] Transesophageal Echocardiographic Report Patient Name: WALKER HILLIARD L : 1945 (79y 9m) Gender: F Study Date: 03/06/2025 09:23:36 AM Ht(Inch): Wt(Lb): BSA: Filler Spreader: Location: [facility] Order Provider: NICHOLAS BENITES BMI: [...] Tadeo MD 03/06/2025 2:56:34 PM CDT Nicholas Benites MD PhD CV ECHO PROCEDURES Fin al Result * POC Blood Gas and Chemistries, Arterial - (03/06/2025 8:44 AM CDT) Pathologist [facility] K POC 3.5 3.3 - 4.9 mmol/L Comment: Interpretive Data Not all point of care methods assess for hemolysis. Confirm with instrument and retest K+ if not consistent with clinical signs and symptoms. Current Interpretive Data was last revised on 2024. Glucose, POC 139 70 - 199 mg/dL ALONA [facility] Blood 03/06/2025 8:44 AM CDT 03/06/2025 8:44 AM CDT us Juan David Vargas RN LAB POCT ORDERABLES - DEV ICE Final Result [facility] Department [place] [address] * SCAN - LABS (02/13/2025) us Provider [...] revised on 2018. Triglycerides 241(H) <=149 mg/dL [facility] Comment: Interpretive Data Ages < [...] revised on 2018. HDL 35(L) >=40 mg/dL [facility] Comment: Interpretive Data Ages < [...] on 2018. LDL, calculated 140(H) <=129 mg/dL [facility] Comment: Interpretive Data Ages < [...] revised on 2024. Non-HDL Cholesterol 184 mg/dL [facility] Comment: Interpretive Data Ages < or [...] last revised on 2018. Chol/HDL ratio 6 [facility] Blood 02/02/2025 5:20 AM CDT 02/02/2025 5:37 AM CDT Narrative [facility] - 02/02/2025 8:51 AM CDT reflex us Nicholas Benites MD PhD LAB BLOOD ORDERABLES F inal Result [facility] Department [place] [address] * (ABNORMAL) POCT hemoglobin A1c (01/17/2025 11:45 [...] and children were not included. (Diabetes Care 31:5272-9337, 2008). The eAG is not equivalent to a fasting glucose. Blood 01/17/2025 11:4 5 AM CDT 01/17/2025 11:45 AM CDT us Nicholas Benites MD PhD POINT OF CARE TEST ORD ERABLES Final Result [facility] Department [place] [address] * Dexa Bone Density (01/11/2019 2:40 PM CDT) Anatomical Region Laterality Modality Wrist N/A Radiographic Zeinab ging Narrative 01/13/2019 2:57 PM CDT Patient Name: Walker Hilliard Date of : 1945 Date of scan: 01/11/2019 Bone mineral density was performed on a [employer] Discovery Densitometer. Machine Cross-calibration and Precision studies [...] by the International Society of Clinical Densitometry. 2R229180H Berlin Escobar MD IMG DXA PROCEDURES Final Resul t from Last 3 Months or Most Recently Relevant to Health Maintenance Insurance MEDICARE [facility] MEDICARE SUPPLEMENT [facility] MEDICARE [facility] MEDICARE [facility] MEDICARE SUPPLEMENT Member Subscriber Plan / Payer (Ef fective 2019-Present) Name:Walker Hilliard Relation to Subscriber:Self Name:Walker Hilliard Payer ID:[id number] Group ID:[id number] Type:COMMERCIAL Address: [address] [place] [id number] [employer] Advance Directives For more information, please contact: [phone] * Full Code (Latest Code Status on [...] selected below: No intubationNo cardioversion Care Teams Oil Change Technician Relationship Specialty Start Date End Date Lopez Pool MD PCP - General Family Medicine 03/18/22 Hema Castaneda MD Consulting Physician Cardiology 01/11/19 Colleen Bain MD Referring Physician Endocrinology Diabetes & Metabolism 04/07/19 Rosette Espinoza MD Referring Physician Cardiology 04/07/19 Jacqueline Schaeffer, financial aids officer Failure Coordinator Cardiology 07/13/24 Anat Hutchison 07/13/24
--- OUTSIDE RECORDS SUMMARY | 2025-05-09 10:53 | XMS_ITS | Encounter Summary ---
Author Organization [facility] Healthcare Address [address] [place] [address] Care Team Providers Care Sales Route Driver Name Role Phone Hema Castaneda MD Unavailable [phone] Colleen Bain MD Unavailable [phone] Rosette Espinoza MD Unavailable Lopez Pool MD Primary Care Provider [phone] Jacqueline Schaeffer RN Unavailable Unavailable Jenni Hartley RN Unavailable Unavailable Anat Hutchison Unavailable Unavailable Zeynep Pérez RN Unavailable [phone] Encounter Details Date Type Department Care Team (Late st Contact Info) Description 07/01/2022 Telephone Research [facility] Transplant Heart [address] [address] Mailstop [phone] [place] [address] Jennifer Acuna Social History Tobacco Use Types [...] often do you attend chur ch or jainism services? Never 03/14/2022 Do you belong to any clubs o r organizations such as buddhism groups, unions, fraternal or athletic groups, or [...] slept in a fdc (including now)? 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 Not on file Not on file Not on file documented as of this encounter Plan of Treatment Not on file documented as of this encounter Visit Diagnoses Not on filedocumented in this encounter Care Teams Sales Route Driver Relationship Specialty Start Date End Date Lopez Pool MD PCP - General Family Medicine 03/18/22 Hema Castaneda MD Consulting Physician Cardiology 01/11/19 Colleen Bain MD Referring Physician Endocrinology Diabetes & Metabolism 04/07/19 Rosette Espinoza MD Referring Physician Cardiology 04/07/19 Jacqueline Schaeffer, sample shoe inspector and reworker Failure Coordinator Cardiology 07/13/24 Jenni Hartley, RN Registered Nurse 07/13/24 08/01/24 Anat Hutchison 07/13/24 Zeynep Pérez, RN [address] [facility] [address] [place] [address] [facility] Outpatient Junior [employer] School Teacher 02/03/25 03/02/25 documented as of this encounter
--- OUTSIDE RECORDS SUMMARY | 2025-05-09 10:53 | XMS_ITS | Encounter Summary ---
Author Organization [facility] Address [address] [place] [address] Phone Care Team Providers Care Order Entry Specialist Name Role Phone Elmer Wallace MD Primary Care Provider Hema Castaneda MD Unavailable [phone] Colleen Bain MD Unavailable [phone] Rosette Espinoza MD Unavailable [phone] Jenni Hartley RN Unavailable Unavailable Meenu Jones NP Unavailable [phone] Lopez Pool MD Primary Care Provider Jacqueline Schaeffer RN Unavailable Unavailable Jenni Hartley RN Unavailable Unavailable Anat Hutchison Unavailable Unavailable Zeynep Pérez RN Unavailable [phone] Encounter Details Date Type Department Care Team [...] on file 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 Gender Identity Female 07/13/2018 9:28 AM [...] documented as of this encounter Care Teams Order Entry Specialist Relationship Specialty Start Date End Date Elmer Wallace MD PCP - General 02/09/17 03/17/22 Lopez Pool MD PCP - General Family Medicine 03/18/22 Hema Castaneda MD Consulting Physician Cardiology 01/11/19 Colleen Bain MD Referring Physician Endocrinology Diabetes & Metabolism 04/07/19 Rosette Espinoza MD Referring Physician Cardiology 04/07/19 Jenni Hartley, RN Registered Nurse Cardiology 04/02/21 04/22/21 Meenu Jones NP Inspector Repairer [place] Cardiology 04/02/21 04/22/21 Jacqueline Schaeffer wellness nurse rn Failure Coordinator Cardiology 07/13/24 Jenni Hartley, RN Registered Nurse 07/13/24 08/01/24 Anat Hutchison 07/13/24 Zeynep Pérez, MIRI [address] [facility] [address] [place] [address] SHOP Outpatient Captain Waiter 02/03/25 03/02/25 documented as of this encounter
--- OUTSIDE RECORDS SUMMARY | 2025-05-09 10:53 | XMS_ITS | Encounter Summary ---
Author Organization [facility] Address [address] [place] [address] Phone Care Team Providers Care Scientific Illustrator Name Role Phone Elmer Wallace MD Primary Care Provider Hema Castaneda MD Unavailable [phone] Colleen Bain MD Unavailable [phone] Rosette Espinoza MD Unavailable [phone] Jenni Hartley RN Unavailable Unavailable Meenu Jones NP Unavailable [phone] Lopez Pool MD Primary Care Provider [phone] Jacqueline Schaeffer RN Unavailable Unavailable Jenni Hartley RN Unavailable Unavailable Anat Hutchison Unavailable Unavailable Zeynep Pérez RN Unavailable [phone] Encounter Details Date Type Department Care Team [...] on file Legal 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 Female 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 PAINTER PLATE Gender Identity Female 07/13/2018 9:28 AM CDT Sexual Orientation Not on file 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 Not on file Not on file Not [...] documented as of this encounter Care Teams Scientific Illustrator Relationship Specialty Start Date End Date Elmer Wallace MD PCP - General 02/09/17 03/17/22 Lopez Pool MD PCP - General Family Medicine 03/18/22 Hema Castaneda MD Consulting Physician Cardiology 01/11/19 Colleen Bain MD Referring Physician Endocrinology Diabetes & Metabolism 04/07/19 Rosette Espinoza MD Referring Physician Cardiology 04/07/19 Jenni Hartley, RN Registered Nurse Cardiology 04/02/21 04/22/21 Meenu Jones NP Scientific Research Manager Cardiology 04/02/21 04/22/21 Jacqueline Schaeffer college or university business manager Failure Coordinator Cardiology 07/13/24 Jenni Hartley, RN Registered Nurse 07/13/24 08/01/24 Anat Hutchison 07/13/24 Zeynep Pérez, MIRI [address] [facility] [address] [place] [address] SHOP Outpatient Garden Tractor Mechanic 02/03/25 03/02/25 documented as of this encounter
--- OUTSIDE RECORDS SUMMARY | 2025-05-09 10:53 | XMS_ITS | Encounter Summary ---
Author Organization [facility] Address [address] [place] [address] Phone Care Team Providers Care Manager China Name Role Phone Elmer Wallace MD Primary Care Provider Hema Castaneda MD Unavailable [phone] Colleen Bain MD Unavailable [phone] Rosette Espinoza MD Unavailable [phone] Jenni Hartley RN Unavailable Unavailable Meenu Jones NP Unavailable [phone] Lopez Pool MD Primary Care Provider [phone] Jacqueline Schaeffer RN Unavailable Unavailable Jenni Hartley RN Unavailable Unavailable Anat Hutchison Unavailable Unavailable Zeynep Pérez RN Unavailable [phone] Encounter Details Date Type Department Care Team (Late st Contact Info) Description 12/24/2017 Orders Only [facility] Provider, MD Lexi [address] [place] [address] Social History Tobacco Use Types Packs/Day Years Used Date Smoking Tobacco: Former Comments Unknown Sex and Gender Information Value Date Recorded Sex Assigned at Not on file 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 [facility] Provider CV CARDIAC SERVICES PROCE DURES Final Result * CARDIOLOGY REPORT (12/24/2017) Anatomical Region Laterality Modality Other Narrative 12/24/2017 Ordered by an unspecified provider. [facility] Provider CV CARDIAC SERVICES PROCE DURES Final Result * CARDIOLOGY REPORT (12/24/2017) Anatomical Region Laterality Modality Other Narrative 12/24/2017 Ordered by an unspecified provider. Result [facility] Provider MD CV CARDIAC SERVICES PROCE DURES Final Result * CARDIOLOGY REPORT (12/24/2017) Anatomical Region Laterality Modality Other Narrative 12/24/2017 Ordered by an unspecified provider. Result [facility] Provider CV CARDIAC SERVICES PROCE DURES Final Result * CARDIOLOGY REPORT (12/24/2017) Anatomical Region Laterality Modality Other Narrative 12/24/2017 Ordered by an unspecified provider. Result [facility] Provider CV CARDIAC SERVICES PROCE DURES Final Result * CARDIOLOGY REPORT (12/24/2017) Anatomical Region Laterality Modality Other Narrative 12/24/2017 Ordered by an unspecified provider. Result [facility] Provider CV CARDIAC SERVICES PROCE DURES Final Result * CARDIOLOGY REPORT (12/24/2017) Anatomical Region Laterality Modality Other Narrative 12/24/2017 Ordered by an unspecified provider. Result [facility] Provider CV CARDIAC SERVICES PROCE DURES Final Result * CARDIOLOGY REPORT (12/24/2017) Anatomical Region Laterality Modality Other Narrative 12/24/2017 Ordered by an unspecified provider. Result [facility] Provider CV CARDIAC SERVICES PROCE DURES Final Result * CARDIOLOGY REPORT (12/24/2017) Anatomical Region Laterality Modality Other Narrative 12/24/2017 Ordered by an unspecified provider. Result [facility] Provider CV CARDIAC SERVICES PROCE DURES Final Result * CARDIOLOGY REPORT (12/24/2017) Anatomical Region Laterality Modality Other Narrative 12/24/2017 Ordered by an unspecified provider. Result [facility] Provider CV CARDIAC SERVICES PROCE DURES Final Result * CARDIOLOGY REPORT (12/24/2017) Anatomical Region Laterality Modality Other Narrative 12/24/2017 Ordered by an unspecified provider. Result [facility] Provider CV CARDIAC SERVICES PROCE DURES Final Result * CARDIOLOGY REPORT (12/24/2017) Anatomical Region Laterality Modality Other Narrative 12/24/2017 Ordered by an unspecified provider. us Historical [...] documented as of this encounter Care Teams Manager China Relationship Specialty Start Date End Date Elmer Wallace MD PCP - General 02/09/17 03/17/22 Lopez Pool MD PCP - General Family Medicine 03/18/22 Hema Castaneda MD Consulting Physician Cardiology 01/11/19 Colleen Bain MD Referring Physician Endocrinology Diabetes & Metabolism 04/07/19 Rosette Espinoza MD Referring Physician Cardiology 04/07/19 Jenni Hartley, RN Registered Nurse Cardiology 04/02/21 04/22/21 Meenu Jones NP Solutions Engineer Cardiology 04/02/21 04/22/21 Jacqueline Schaeffer, traffic investigator Failure Coordinator Cardiology 07/13/24 Jenni Hartley, RN Registered Nurse 07/13/24 08/01/24 Anat Hutchison 07/13/24 Zeynep Pérez, MIRI [address] [facility] [address] [place] [address] SHOP Outpatient Asphalt Paving Superintendent 02/03/25 03/02/25 documented as of this encounter
--- OUTSIDE RECORDS SUMMARY | 2025-05-09 10:53 | XMS_ITS | Continuity of Care Document ---
Author Organization [facility] Address [address] [place] [address] [place] [address] Phone Care Team Providers Care High Speed Warper Tender Name Role Phone Jimmy Blackwell DO Unavailable Unavailable Advance Directives Directive Yes / No Effective Date File Name No Information Encounters Encounter Description Practice Location Reason(s) For Visit Diagnoses Date Provider Providers Copied on Encounter [facility], [address], [place], [place], [id number], tel:[phone] [facility] No Information Rosalva Ibarra. [address] [place], [address], [place]. tel: [phone] Family History Family Member Type Diagnosis Age At Onset No Information Payers Payer name Insurance type Covered democrat ID Authoriza tion(s) [employer] [id number] Medicaid [facility] [id number] Social History Type Description Quantity Date Captured [...]
--- OUTSIDE RECORDS SUMMARY | 2025-05-09 10:53 | XMS_ITS | Encounter Summary ---
Author Organization [facility] [employer] [facility] Address [address] [place] [address] Phone Care Team Providers Care Shellfish Checker Name Role Phone Elmer Wallace MD Primary Care Provider Hema Castaneda MD Unavailable [phone] Colleen Bain MD Unavailable [phone] Rosette Espinoza MD Unavailable [phone] Jenni Hartley RN Unavailable Unavailable Meenu Jones NP Unavailable [phone] Lopez Pool MD Primary Care Provider [phone] Jacqueline Schaeffer RN Unavailable Unavailable Jenni Hartley RN Unavailable Unavailable Anat Hutchison Unavailable Unavailable Zeynep Pérez RN Unavailable [phone] Encounter Details Date Type Department Care Team (Late st Contact Info) Description 01/07/2018 Orders Only [facility] CAR CLINCONV Provider, MD Lexi [address] [place] [address] Social History Tobacco Use Types Packs/Day Years Used Date Smoking Tobacco: Former Comments Unknown Sex and Gender Information Value Date Recorded Sex Assigned at Not on file 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 [facility] Provider MD CV CARDIAC SERVICES PROCE DURES Final Result * CARDIOLOGY REPORT (01/07/2018) Anatomical Region Laterality Modality Other Narrative 01/07/2018 Ordered by an unspecified provider. [facility] Provider CV CARDIAC SERVICES PROCE DURES Final Result * CARDIOLOGY REPORT (01/07/2018) Anatomical Region Laterality Modality Other Narrative 01/07/2018 Ordered by an unspecified provider. [facility] Provider MD CV CARDIAC SERVICES PROCE DURES Final Result * CARDIOLOGY REPORT (01/07/2018) Anatomical Region Laterality Modality Other Narrative 01/07/2018 Ordered by an unspecified provider. [facility] Provider MD CV CARDIAC SERVICES PROCE DURES Final Result * CARDIOLOGY REPORT (01/07/2018) Anatomical Region Laterality Modality Other Narrative 01/07/2018 Ordered by an unspecified provider. [facility] Provider CV CARDIAC SERVICES PROCE DURES Final Result * CARDIOLOGY REPORT (01/07/2018) Anatomical Region Laterality Modality Other Narrative 01/07/2018 Ordered by an unspecified provider. [facility] Provider CV CARDIAC [...] documented as of this encounter Care Teams Shellfish Checker Relationship Specialty Start Date End Date Elmer Wallace MD PCP - General 02/09/17 03/17/22 Lopez Pool MD PCP - General Family Medicine 03/18/22 Hema Castaneda MD Consulting Physician Cardiology 01/11/19 Colleen Bain MD Referring Physician Endocrinology Diabetes & Metabolism 04/07/19 Rosette Espinoza MD Referring Physician Cardiology 04/07/19 Jenni Hartley, RN Registered Nurse Cardiology 04/02/21 04/22/21 Meenu Jones NP Care Giver Cardiology 04/02/21 04/22/21 Jacqueline Schaeffer RN Heart Failure Coordinator Cardiology 07/13/24 Jenni Hartley, RN Registered Nurse 07/13/24 08/01/24 Anat Hutchison 07/13/24 Zeynep Pérez RN [address] [address] [facility] Outpatient Real Estate Analyst 02/03/25 03/02/25 documented as of this encounter
--- OUTSIDE RECORDS SUMMARY | 2025-05-09 10:53 | XMS_ITS | Encounter Summary ---
Author Organization [facility] Address [address] [place] [address] Phone Care Team Providers Care Wharf Tender Head Name Role Phone Elmer Wallace MD Primary Care Provider Hema Castaneda MD Unavailable [phone] Colleen Bain MD Unavailable [phone] Rosette Espinoza MD Unavailable [phone] Jenni Hartley RN Unavailable Unavailable Meenu Jones NP Unavailable [phone] Lopez Pool MD Primary Care Provider [phone] Jacqueline Schaeffer RN Unavailable Unavailable Jenni Hartley RN Unavailable Unavailable Anat Hutchison Unavailable Unavailable Zeynep Pérez RN Unavailable [phone] Encounter Details Date Type Department Care Team (Late st Contact Info) Description 02/15/2018 Orders Only [facility] CAR CLINCONV Provider, MD Lexi [address] [place] [address] Social History Tobacco Use Types Packs/Day Years Used Date Smoking Tobacco: Former Comments Unknown Sex and Gender Information Value Date Recorded Sex Assigned at Not on file Legal Sex Female 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 Historical Provider CV CARDIAC SERVICES PROCE DURES Final Result * CARDIOLOGY REPORT (02/15/2018) Anatomical Region Laterality Modality Other Narrative 02/15/2018 Ordered by an unspecified provider. [facility] Provider CV CARDIAC SERVICES PROCE DURES Final Result * CARDIOLOGY REPORT (02/15/2018) Anatomical Region Laterality Modality Other Narrative 02/15/2018 Ordered by an unspecified provider. [facility] Provider CV CARDIAC SERVICES PROCE DURES Final Result * CARDIOLOGY REPORT (02/15/2018) Anatomical Region Laterality Modality Other Narrative 02/15/2018 Ordered by an unspecified provider. Result [facility] Provider MD CV CARDIAC SERVICES PROCE DURES Final Result * CARDIOLOGY REPORT (02/15/2018) Anatomical Region Laterality Modality Other Narrative 02/15/2018 Ordered by an unspecified provider. Result [facility] Provider CV CARDIAC SERVICES PROCE DURES Final Result * CARDIOLOGY REPORT (02/15/2018) Anatomical Region Laterality Modality Other Narrative 02/15/2018 Ordered by an unspecified provider. Result [facility] Provider CV CARDIAC SERVICES PROCE DURES Final Result * CARDIOLOGY REPORT (02/15/2018) Anatomical Region Laterality Modality Other Narrative 02/15/2018 Ordered by an unspecified provider. Result [facility] Provider CV CARDIAC SERVICES PROCE DURES Final Result * CARDIOLOGY REPORT (02/15/2018) Anatomical Region Laterality Modality Other Narrative 02/15/2018 Ordered by an unspecified provider. Result [facility] Provider CV CARDIAC SERVICES PROCE DURES Final Result * CARDIOLOGY REPORT (02/15/2018) Anatomical Region Laterality Modality Other Narrative 02/15/2018 Ordered by an unspecified provider. Result [facility] Provider CV CARDIAC SERVICES PROCE DURES Final Result * CARDIOLOGY REPORT (02/15/2018) Anatomical Region Laterality Modality Other Narrative 02/15/2018 Ordered by an unspecified provider. Result [facility] Provider CV CARDIAC SERVICES PROCE DURES Final Result * CARDIOLOGY REPORT (02/15/2018) Anatomical Region Laterality Modality Other Narrative 02/15/2018 Ordered by an unspecified provider. Result [facility] Provider CV CARDIAC SERVICES PROCE DURES Final Result * CARDIOLOGY REPORT (02/15/2018) Anatomical Region Laterality Modality Other Narrative 02/15/2018 Ordered by an unspecified provider. Result [facility] Provider CV CARDIAC SERVICES PROCE DURES Final Result * CARDIOLOGY REPORT (02/15/2018) Anatomical Region Laterality Modality Other Narrative 02/15/2018 Ordered by an unspecified provider. us Historical Provider CV CARDIAC SERVICES PROCE DURES Final Result * CARDIOLOGY REPORT (02/15/2018) Anatomical Region Laterality Modality Other Narrative 02/15/2018 Ordered by an unspecified provider. Historical Provider CV CARDIAC SERVICES PROCE DURES Final Result documented in this encounter Visit Diagnoses Not on filedocumented in this encounter Additional Health Concerns Infection Onset Date Last Indicated Resolved Time COVID: Suspected 03/13/2022 03/13/2022 03/13/2022 6:26 PM CDT documented as of this encounter Care Teams Wharf Tender Head Relationship Specialty Start Date End Date Elmer Wallace MD PCP - General 02/09/17 03/17/22 Lopez Pool MD PCP - General Family Medicine 03/18/22 Hema Castaneda MD Consulting Physician Cardiology 01/11/19 Colleen Bain MD Referring Physician Endocrinology Diabetes & Metabolism 04/07/19 Rosette Espinoza MD Referring Physician Cardiology 04/07/19 Jenni Hartley, RN Registered Nurse Cardiology 04/02/21 04/22/21 Meenu Jones NP Adoption Social Worker Cardiology 04/02/21 04/22/21 Jacqueline Schaeffer, career agent Failure Coordinator Cardiology 07/13/24 Jenni Hartley, RN Registered Nurse 07/13/24 08/01/24 Anat Hutchison 07/13/24 Zeynep Pérez, MIRI [address] [facility] [address] [place] [address] [facility] Outpatient Cnc Machine Operator 02/03/25 03/02/25 documented as of this encounter
--- OUTSIDE RECORDS SUMMARY | 2025-05-09 10:53 | XMS_ITS | Encounter Summary ---
Author Organization [facility] [employer] [facility] Address [address] [place] [address] Phone Care Team Providers Care Dark Room Attendant Name Role Phone Elmer Wallace MD Primary Care Provider Hema Castaneda MD Unavailable [phone] Colleen Bain MD Unavailable [phone] Rosette Espinoza MD Unavailable [phone] Jenni Hartley RN Unavailable Unavailable Meenu Jones NP Unavailable [phone] Lopez Pool MD Primary Care Provider Jacqueline Schaeffer RN Unavailable Unavailable Jenni Hartley RN Unavailable Unavailable Anat Hutchison Unavailable Unavailable Zeynep Pérez RN Unavailable [phone] Encounter Details Date Type Department Care Team (Late st Contact Info) Description 02/25/2018 Orders Only [facility] CLINCONV Provider, MD Lexi [address] [place] [address] Social History Tobacco Use Types Packs/Day Years Used Date Smoking Tobacco: Former Comments Unknown Sex and Gender Information Value Date Recorded Sex Assigned at Not on file 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 [facility] Provider CV CARDIAC SERVICES PROCE DURES Final Result * CARDIOLOGY REPORT (02/25/2018) Anatomical Region Laterality Modality Other Narrative 02/25/2018 Ordered by an unspecified provider. [facility] Provider CV CARDIAC SERVICES PROCE DURES Final Result * CARDIOLOGY REPORT (02/25/2018) Anatomical Region Laterality Modality Other Narrative 02/25/2018 Ordered by an unspecified provider. [facility] Provider CV CARDIAC SERVICES PROCE DURES Final Result * CARDIOLOGY REPORT (02/25/2018) Anatomical Region Laterality Modality Other Narrative 02/25/2018 Ordered by an unspecified provider. [facility] Provider CV CARDIAC SERVICES PROCE DURES Final Result * CARDIOLOGY REPORT (02/25/2018) Anatomical Region Laterality Modality Other Narrative 02/25/2018 Ordered by an unspecified provider. [facility] Provider CV CARDIAC SERVICES PROCE DURES Final Result * CARDIOLOGY REPORT (02/25/2018) Anatomical Region Laterality Modality Other Narrative 02/25/2018 Ordered by an unspecified provider. Historical Provider MD CV CARDIAC SERVICES PROCE DURES Final Result * CARDIOLOGY REPORT (02/25/2018) Anatomical Region Laterality Modality Other Narrative 02/25/2018 Ordered by an unspecified provider. [facility] Provider CV CARDIAC SERVICES PROCE DURES [...] documented as of this encounter Care Teams Dark Room Attendant Relationship Specialty Start Date End Date Elmer Wallace MD PCP - General 02/09/17 03/17/22 Lopez Pool MD PCP - General Family Medicine 03/18/22 Hema Castaneda MD Consulting Physician Cardiology 01/11/19 Colleen Bain MD Referring Physician Endocrinology Diabetes & Metabolism 04/07/19 Rosette Espinoza MD Referring Physician Cardiology 04/07/19 Jenni Hartley, RN Registered Nurse Cardiology 04/02/21 04/22/21 Meenu Jones NP Refinery Operator Crude Unit Cardiology 04/02/21 04/22/21 Jacqueline Schaeffer, biofuels production technician Failure Coordinator Cardiology 07/13/24 Jenni Hartley, RN Registered Nurse 07/13/24 08/01/24 Anat Hutchison 07/13/24 Zeynep Pérez, RN [address] [facility] [address] [place] [address] [facility] Outpatient Director Of Medical Staff Services 02/03/25 03/02/25 documented as of this encounter
--- OUTSIDE RECORDS SUMMARY | 2025-05-09 10:53 | XMS_ITS | Encounter Summary ---
Author Organization [facility] [employer] [facility] Address [address] [place] [address] Phone Care Team Providers Care Unit Reactor Operator Name Role Phone Elmer Wallace MD Primary Care Provider [phone] Hema Castaneda MD Unavailable [phone] Colleen Bain MD Unavailable [phone] Rosette Espinoza MD Unavailable [phone] Jenni Hartley RN Unavailable Unavailable Meenu Jones NP Unavailable [phone] Lopez Pool MD Primary Care Provider [phone] Jacqueline Schaeffer RN Unavailable Unavailable Jenni Hartley RN Unavailable Unavailable Anat Hutchison Unavailable Unavailable Zeynep Pérez RN Unavailable [phone] Encounter Details Date Type Department Care Team (Late st Contact Info) Description 02/17/2018 Orders Only [facility] CAR CLINCONV Provider, MD Lexi [address] [place] [address] Social History Tobacco Use Types Packs/Day Years Used Date Smoking Tobacco: Former Comments Unknown Sex and Gender Information Value Date Recorded Sex Assigned at Not on file Legal Sex Female 3:00 AM CIRCULATING NURSE Gender Identity Female 07/13/2018 9:28 AM CDT [...] Narrative 02/17/2018 Ordered by an unspecified provider. Result [facility] Provider MD CV CARDIAC SERVICES PROCE DURES Final Result * CARDIOLOGY REPORT (02/17/2018) Anatomical Region Laterality Modality Other Narrative 02/17/2018 Ordered by an unspecified provider. Result [facility] Provider MD CV CARDIAC SERVICES PROCE DURES Final Result * CARDIOLOGY REPORT (02/17/2018) Anatomical Region Laterality Modality Other Narrative 02/17/2018 Ordered by an unspecified provider. Result [facility] Provider MD CV CARDIAC SERVICES PROCE DURES Final Result * CARDIOLOGY REPORT (02/17/2018) Anatomical Region Laterality Modality Other Narrative 02/17/2018 Ordered by an unspecified provider. Result [facility] Provider MD CV CARDIAC SERVICES PROCE DURES Final Result * CARDIOLOGY REPORT (02/17/2018) Anatomical Region Laterality Modality Other Narrative 02/17/2018 Ordered by an unspecified provider. [facility] Provider CV CARDIAC SERVICES PROCE DURES Final Result * CARDIOLOGY REPORT (02/17/2018) Anatomical Region Laterality Modality Other Narrative 02/17/2018 Ordered by an unspecified provider. Result [facility] Provider MD CV CARDIAC SERVICES PROCE [...] documented as of this encounter Care Teams Unit Reactor Operator Relationship Specialty Start Date End Date Elmer Wallace MD PCP - General 02/09/17 03/17/22 Lopez Pool MD PCP - General Family Medicine 03/18/22 Hema Castaneda MD Consulting Physician Cardiology 01/11/19 Colleen Bain MD Referring Physician Endocrinology Diabetes & Metabolism 04/07/19 Rosette Espinoza MD Referring Physician Cardiology 04/07/19 Jenni Hartley, RN Registered Nurse Cardiology 04/02/21 04/22/21 Meenu Jones NP Marketing Sales Representative Cardiology 04/02/21 04/22/21 Jacqueline Schaeffer RN Heart Failure Coordinator Cardiology 07/13/24 Jenni Hartley, RN Registered Nurse 07/13/24 08/01/24 Anat Hutchison 07/13/24 Zeynep Pérez RN [address] [address] [facility] Outpatient Hydrology Professor 02/03/25 03/02/25 documented as of this encounter
--- OUTSIDE RECORDS SUMMARY | 2025-05-09 10:53 | XMS_ITS | Encounter Summary ---
Author Organization [facility] [employer] [facility] Address [address] [place] [address] Phone Care Team Providers Care Service Clerk Name Role Phone Elmer Wallace MD Primary Care Provider Hema Castaneda MD Unavailable [phone] Colleen Bain MD Unavailable [phone] Rosette Espinoza MD Unavailable [phone] Jenni Hartley RN Unavailable Unavailable Meenu Jones NP Unavailable [phone] Lopez Pool MD Primary Care Provider [phone] Jacqueline Schaeffer RN Unavailable Unavailable Jenni Hartley RN Unavailable Unavailable Anat Hutchison Unavailable Unavailable Zeynep Pérez RN Unavailable [phone] Encounter Details Date Type Department Care Team (Latest Contact Info) Description 09/02/2017 Orders Only [facility] CONVERSION Scanning, Provider Social History Tobacco Use Types Packs/Day Years Used Date Smoking Tobacco: Never Assessed Comments Unknown Sex and Gender Information Value Date Recorded Sex Assigned at Not on file Legal Sex Female 3:00 AM TURN DOWN ATTENDANT Gender Identity Female 07/13/2018 9:28 AM CDT Sexual Orientation Not on file documented as of this encounter Plan of Treatment Not on file documented as of this encounter Procedures Procedure Name Priority Date/Time Associated Diagnosis Comments PULMONARY FUNCTION TEST (PFT) 09/02/2017 10:23 AM TURN DOWN ATTENDANT documented in this encounter Results * PULMONARY FUNCTION TEST (PFT) (09/02/2017 10:23 AM TURN DOWN ATTENDANT) Anatomical Region Laterality Modality PFT us Provider Scanning PFT ORDERABLES Final Result documented in this encounter Visit Diagnoses Not on filedocumented in this encounter Additional Health Concerns Infection Onset Date Last Indicated Resolved Time COVID: Suspected 03/13/2022 03/13/2022 03/13/2022 6:26 PM CDT documented as of this encounter Care Teams Service Clerk Relationship Specialty Start Date End Date Elmer Wallace MD PCP - General 02/09/17 03/17/22 Lopez Pool MD PCP - General Family Medicine 03/18/22 Hema Castaneda MD Consulting Physician Cardiology 01/11/19 Colleen Bain MD Referring Physician Endocrinology Diabetes & Metabolism 04/07/19 Rosette Espinoza MD Referring Physician Cardiology 04/07/19 Jenni Hartley, RN Registered Nurse Cardiology 04/02/21 04/22/21 Meenu Jones NP Pmo Consultant Cardiology 04/02/21 04/22/21 Jacqueline Schaeffer, mortgage loan reviewer Failure Coordinator Cardiology 07/13/24 Jenni Hartley, RN Registered Nurse 07/13/24 08/01/24 Anat Hutchison 07/13/24 Zeynep Pérez, RN [address] [facility] [address] [place] [address] [facility] Outpatient Singer And Unloader 02/03/25 03/02/25 documented as of this encounter
--- OUTSIDE RECORDS SUMMARY | 2025-05-09 10:53 | XMS_ITS | Encounter Summary ---
Author Organization [facility] [employer] [facility] Address [address] [place] [address] Phone Care Team Providers Care Instructor Of Sociology Name Role Phone Elmer Wallace MD Primary Care Provider Hema Castaneda MD Unavailable [phone] Colleen Bain MD Unavailable [phone] Rosette Espinoza MD Unavailable [phone] Jenni Hartley RN Unavailable Unavailable Meenu Jones NP Unavailable [phone] Lopez Pool MD Primary Care Provider [phone] Jacqueline Schaeffer RN Unavailable Unavailable Jenni Hartley RN Unavailable Unavailable Anat Hutchison Unavailable Unavailable Zeynep Pérez RN Unavailable [phone] Encounter Details Date Type Department Care Team (Late st Contact Info) Description 01/05/2018 Orders Only [facility] IM CAR CLINCONV Provider, MD Lexi [address] [place] [address] Social History Tobacco Use Types Packs/Day Years Used Date Smoking Tobacco: Former Comments Unknown Sex and Gender Information Value Date Recorded Sex Assigned at Not on file Legal Sex Female 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 [facility] Provider MD CV CARDIAC SERVICES PROCE DURES Final Result * CARDIOLOGY REPORT (01/05/2018) Anatomical Region Laterality Modality Other Narrative 01/05/2018 Ordered by an unspecified provider. [facility] Provider CV CARDIAC SERVICES PROCE DURES Final Result * CARDIOLOGY REPORT (01/05/2018) Anatomical Region Laterality Modality Other Narrative 01/05/2018 Ordered by an unspecified provider. [facility] Provider CV CARDIAC SERVICES PROCE DURES Final Result * CARDIOLOGY REPORT (01/05/2018) Anatomical Region Laterality Modality Other Narrative 01/05/2018 Ordered by an unspecified provider. [facility] Provider CV CARDIAC SERVICES PROCE DURES Final Result * CARDIOLOGY REPORT (01/05/2018) Anatomical Region Laterality Modality Other Narrative 01/05/2018 Ordered by an unspecified provider. [facility] Provider CV CARDIAC SERVICES PROCE DURES Final Result * CARDIOLOGY REPORT (01/05/2018) Anatomical Region Laterality Modality Other Narrative 01/05/2018 Ordered by an unspecified provider. us Historical Provider CV CARDIAC SERVICES PROCE DURES Final Result * CARDIOLOGY REPORT (01/05/2018) Anatomical Region Laterality Modality Other Narrative 01/05/2018 Ordered by an unspecified provider. [facility] Provider MD CV CARDIAC SERVICES PROCE DURES Final Result * CARDIOLOGY REPORT (01/05/2018) Anatomical Region Laterality Modality Other Narrative 01/05/2018 Ordered by an unspecified provider. Historical Provider MD CV CARDIAC SERVICES PROCE DURES Final Result * CARDIOLOGY REPORT (01/05/2018) Anatomical Region Laterality Modality Other Narrative 01/05/2018 Ordered by an unspecified provider. [facility] Provider CV CARDIAC SERVICES PROCE DURES Final Result documented in this encounter Visit Diagnoses Not on filedocumented in this encounter Additional Health Concerns Infection Onset Date Last Indicated Resolved Time COVID: Suspected 03/13/2022 03/13/2022 03/13/2022 6:26 PM CDT documented as of this encounter Care Teams Instructor Of Sociology Relationship Specialty Start Date End Date Elmer Wallace MD PCP - General 02/09/17 03/17/22 Lopez Pool MD PCP - General Family Medicine 03/18/22 Hema Castaneda MD Consulting Physician Cardiology 01/11/19 Colleen Bain MD Referring Physician Endocrinology Diabetes & Metabolism 04/07/19 Rosette Espinoza MD Referring Physician Cardiology 04/07/19 Jenni Hartley, RN Registered Nurse Cardiology 04/02/21 04/22/21 Meenu Jones NP Bullet Charging Machine Operator Cardiology 04/02/21 04/22/21 Jacqueline Schaeffer, day care worker Failure Coordinator Cardiology 07/13/24 Jenni Hartley, RN Registered Nurse 07/13/24 08/01/24 Anat Hutchison 07/13/24 Zeynep Pérez, MIRI [address] [address] [facility] Outpatient Life Assurance Representative 02/03/25 03/02/25 documented as of this encounter
--- OUTSIDE RECORDS SUMMARY | 2025-05-09 10:53 | XMS_ITS | Encounter Summary ---
Author Organization [facility] of [facility] Address [address] [place] [address] Phone Care Team Providers Care Blackjack Dealer Name Role Phone Elmer Wallace MD Primary Care Provider Hema Castaneda MD Unavailable [phone] Colleen Bain MD Unavailable [phone] Rosette Espinoza MD Unavailable [phone] Jenni Hartley RN Unavailable Unavailable Meenu Jones NP Unavailable [phone] Lopez Pool MD Primary Care Provider [phone] Jacqueline Schaeffer RN Unavailable Unavailable Jenni Hartley RN Unavailable Unavailable Anat Hutchison Unavailable Unavailable Zeynep Pérez RN Unavailable [phone] Encounter Details Date Type Department Care Team (Late st Contact Info) Description 01/14/2018 Orders Only [facility] Provider, MD Lexi [address] [place] [address] Social History Tobacco Use Types Packs/Day Years Used Date Smoking Tobacco: Former Comments Unknown Sex and Gender Information Value Date Recorded Sex Assigned at Not on file Legal Sex Female 3:00 AM RECRUITING INTERNSHIP Gender Identity Female 07/13/2018 9:28 AM CDT [...] Narrative 01/14/2018 Ordered by an unspecified provider. [facility] Provider CV CARDIAC SERVICES PROCE DURES Final Result * CARDIOLOGY REPORT (01/14/2018) Anatomical Region Laterality Modality Other Narrative 01/14/2018 Ordered by an unspecified provider. [facility] Provider CV CARDIAC SERVICES PROCE DURES Final Result * CARDIOLOGY REPORT (01/14/2018) Anatomical Region Laterality Modality Other Narrative 01/14/2018 Ordered by an unspecified provider. [facility] Provider CV CARDIAC SERVICES PROCE DURES Final Result * CARDIOLOGY REPORT (01/14/2018) Anatomical Region Laterality Modality Other Narrative 01/14/2018 Ordered by an unspecified provider. [facility] Provider CV CARDIAC SERVICES PROCE DURES Final Result * CARDIOLOGY REPORT (01/14/2018) Anatomical Region Laterality Modality Other Narrative 01/14/2018 Ordered by an unspecified provider. [facility] Provider CV CARDIAC SERVICES PROCE DURES Final Result * CARDIOLOGY REPORT (01/14/2018) Anatomical Region Laterality Modality Other Narrative 01/14/2018 Ordered by an unspecified provider. Historical Provider MD CV CARDIAC SERVICES PROCE DURES Final Result * CARDIOLOGY REPORT (01/14/2018) Anatomical Region Laterality Modality Other Narrative 01/14/2018 Ordered by an unspecified provider. [facility] Provider CV CARDIAC SERVICES PROCE DURES [...] documented as of this encounter Care Teams Blackjack Dealer Relationship Specialty Start Date End Date Elmer Wallace MD PCP - General 02/09/17 03/17/22 Lopez Pool MD PCP - General Family Medicine 03/18/22 Hema Castaneda MD Consulting Physician Cardiology 01/11/19 Colleen Bain MD Referring Physician Endocrinology Diabetes & Metabolism 04/07/19 Rosette Espinoza MD Referring Physician Cardiology 04/07/19 Jenni Hartley, RN Registered Nurse Cardiology 04/02/21 04/22/21 Meenu Jones NP Syrup Mixer Cardiology 04/02/21 04/22/21 Jacqueline Schaeffer, security alarm installer Failure Coordinator Cardiology 07/13/24 Jenni Hartley, RN Registered Nurse 07/13/24 08/01/24 Anat Hutchison 07/13/24 Zeynep Pérez, RN [address] [facility] [address] [place] [address] [facility] Outpatient Sizing Sprayer 02/03/25 03/02/25 documented as of this encounter
--- OUTSIDE RECORDS SUMMARY | 2025-05-09 10:53 | XMS_ITS | Encounter Summary ---
Author Organization [facility] Address [address] [place] [address] Care Team Providers Care Rotary Kiln Operator Name Role Phone Elmer Wallace MD Primary Care Provider Hema Castaneda MD Unavailable [phone] Colleen Bain MD Unavailable [phone] Rosette Espinoza MD Unavailable [phone] Jenni Hartley RN Unavailable Unavailable Meenu Jones NP Unavailable [phone] Lopez Pool MD Primary Care Provider [phone] Jacqueline Schaeffer RN Unavailable Unavailable Jenni Hartley RN Unavailable Unavailable Anat Hutchison Unavailable Unavailable Zeynep Pérez RN Unavailable [phone] Encounter Details Date Type Department Care Team (Late st Contact Info) Description 10/20/2019 Telephone [facility] Transplant Heart [address] [facility] [phone] [place] [address] Genesis Brito Social History Tobacco Use Types Packs/Day Years Used Date Smoking Tobacco: Former Cigarettes Q uit: 2006 Smokeless Tobacco: Never Alcohol Use Standard Drinks/Week Comments No 0 (1 standard drink = 0.6 oz pur e alcohol) minimal Comments Unknown Sex and Gender Information Value Date Recorded Sex Assigned at Not on file Legal Sex Female 3:00 AM LEATHER PIECE INSPECTOR Gender Identity Female 07/13/2018 9:28 AM CDT [...] documented as of this encounter Care Teams Rotary Kiln Operator Relationship Specialty Start Date End Date Elmer Wallace MD PCP - General 02/09/17 03/17/22 Lopez Pool MD PCP - General Family Medicine 03/18/22 Hema Castaneda MD Consulting Physician Cardiology 01/11/19 Colleen Bain MD Referring Physician Endocrinology Diabetes & Metabolism 04/07/19 Rosette Espinoza MD Referring Physician Cardiology 04/07/19 Jenni Hartley, MIRI Registered Nurse Cardiology 04/02/21 04/22/21 Meenu Jones NP Administration Internship Cardiology 04/02/21 04/22/21 Jacqueline Schaeffer RN Heart Failure Coordinator Cardiology 07/13/24 Jenni Hartley, RN Registered Nurse 07/13/24 08/01/24 Anat Hutchison 07/13/24 Zeynep Pérez RN [address] [address] [facility] Outpatient Webmaster 02/03/25 03/02/25 documented as of this encounter
--- OUTSIDE RECORDS SUMMARY | 2025-05-09 10:53 | XMS_ITS | Encounter Summary ---
Author Organization [facility] of [facility] Address [address] [place] [address] Phone Care Team Providers Care Anesthesiologist Assistant Certified Name Role Phone Elmer Wallace MD Primary Care Provider [phone] Hema Castaneda MD Unavailable [phone] Colleen Bain MD Unavailable [phone] Rosette Espinoza MD Unavailable [phone] Jenni Hartley RN Unavailable Unavailable Meenu Jones NP Unavailable [phone] Lopez Pool MD Primary Care Provider [phone] Jacqueline Schaeffer RN Unavailable Unavailable Jenni Hartley RN Unavailable Unavailable Anat Hutchison Unavailable Unavailable Zeynep Pérez RN Unavailable [phone] Encounter Details Date Type Department Care Team (Late st Contact Info) Description 01/18/2018 Orders Only [facility] Provider, MD Lexi [address] [place] [address] Social History Tobacco Use Types Packs/Day Years Used Date Smoking Tobacco: Former Comments Unknown Sex and Gender Information Value Date Recorded Sex Assigned at Not on file Legal Sex Female 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 [facility] Provider CV CARDIAC SERVICES PROCE DURES Final Result * CARDIOLOGY REPORT (01/18/2018) Anatomical Region Laterality Modality Other Narrative 01/18/2018 Ordered by an unspecified provider. [facility] Provider CV CARDIAC SERVICES PROCE DURES Final Result * CARDIOLOGY REPORT (01/18/2018) Anatomical Region Laterality Modality Other Narrative 01/18/2018 Ordered by an unspecified provider. Result [facility] Provider CV CARDIAC SERVICES PROCE DURES Final Result * CARDIOLOGY REPORT (01/18/2018) Anatomical Region Laterality Modality Other Narrative 01/18/2018 Ordered by an unspecified provider. [facility] Provider CV CARDIAC SERVICES PROCE DURES Final Result * CARDIOLOGY REPORT (01/18/2018) Anatomical Region Laterality Modality Other Narrative 01/18/2018 Ordered by an unspecified provider. [facility] Provider CV CARDIAC SERVICES PROCE DURES Final Result * CARDIOLOGY REPORT (01/18/2018) Anatomical Region Laterality Modality Other Narrative 01/18/2018 Ordered by an unspecified provider. Historical Provider CV CARDIAC SERVICES PROCE DURES Final Result * CARDIOLOGY REPORT (01/18/2018) Anatomical Region Laterality Modality Other Narrative 01/18/2018 Ordered by an unspecified provider. [facility] Provider CV CARDIAC SERVICES PROCE DURES Final Result * CARDIOLOGY REPORT (01/18/2018) Anatomical Region Laterality Modality Other Narrative 01/18/2018 Ordered by an unspecified provider. [facility] Provider CV CARDIAC SERVICES PROCE DURES Final Result * CARDIOLOGY REPORT (01/18/2018) Anatomical Region Laterality Modality Other Narrative 01/18/2018 Ordered by an unspecified provider. [facility] Provider CV CARDIAC SERVICES PROCE DURES Final Result * CARDIOLOGY REPORT (01/18/2018) Anatomical Region Laterality Modality Other Narrative 01/18/2018 Ordered by an unspecified provider. [facility] Provider CV CARDIAC SERVICES PROCE DURES Final Result documented in this encounter Visit Diagnoses Not on filedocumented in this encounter Additional Health Concerns Infection Onset Date Last Indicated Resolved Time COVID: Suspected 03/13/2022 03/13/2022 03/13/2022 6:26 PM CDT documented as of this encounter Care Teams Anesthesiologist Assistant Certified Relationship Specialty Start Date End Date Elmer Wallace MD PCP - General 02/09/17 03/17/22 Lopez Pool MD PCP - General Family Medicine 03/18/22 Hema Castaneda MD Consulting Physician Cardiology 01/11/19 Colleen Bain MD Referring Physician Endocrinology Diabetes & Metabolism 04/07/19 Rosette Espinoza MD Referring Physician Cardiology 04/07/19 Jenni Hartley, RN Registered Nurse Cardiology 04/02/21 04/22/21 Meenu Jones NP Stockroom Worker Cardiology 04/02/21 04/22/21 Jacqueline Schaeffer, drafter marine Failure Coordinator Cardiology 07/13/24 Jenni Hartley, RN Registered Nurse 07/13/24 08/01/24 Anat Hutchison 07/13/24 Zeynep Pérez, MIRI [address] [address] [facility] Outpatient Knot Tier 02/03/25 03/02/25 documented as of this encounter
--- OUTSIDE RECORDS SUMMARY | 2025-05-09 10:53 | XMS_ITS | Encounter Summary ---
Author Organization [facility] of [facility] Address [address] [place] [address] Phone Care Team Providers Care Centrifugal Wax Molder Name Role Phone Elmer Wallace MD Primary Care Provider Hema Castaneda MD Unavailable [phone] Colleen Bain MD Unavailable [phone] Rosette Espinoza MD Unavailable [phone] Jenni Hartley RN Unavailable Unavailable Meenu Jones NP Unavailable [phone] Lopez Pool MD Primary Care Provider [phone] Jacqueline Schaeffer RN Unavailable Unavailable Jenni Hartley RN Unavailable Unavailable Anat Hutchison Unavailable Unavailable Zeynep Pérez RN Unavailable [phone] Encounter Details Date Type Department Care Team (Late st Contact Info) Description 12/28/2017 Orders Only [facility] Provider, MD Lexi [address] [place] [address] Social History Tobacco Use Types Packs/Day Years Used Date Smoking Tobacco: Former Comments Unknown Sex and Gender Information Value Date Recorded Sex Assigned at Not on file 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 [facility] Provider MD CV CARDIAC SERVICES PROCE DURES Final Result * CARDIOLOGY REPORT (12/28/2017) Anatomical Region Laterality Modality Other Narrative 12/28/2017 Ordered by an unspecified provider. [facility] Provider CV CARDIAC SERVICES PROCE DURES Final Result * CARDIOLOGY REPORT (12/28/2017) Anatomical Region Laterality Modality Other Narrative 12/28/2017 Ordered by an unspecified provider. [facility] Provider MD CV CARDIAC SERVICES PROCE DURES Final Result * CARDIOLOGY REPORT (12/28/2017) Anatomical Region Laterality Modality Other Narrative 12/28/2017 Ordered by an unspecified provider. [facility] Provider MD CV CARDIAC SERVICES PROCE DURES Final Result * CARDIOLOGY REPORT (12/28/2017) Anatomical Region Laterality Modality Other Narrative 12/28/2017 Ordered by an unspecified provider. [facility] Provider CV CARDIAC SERVICES PROCE DURES Final Result * CARDIOLOGY REPORT (12/28/2017) Anatomical Region Laterality Modality Other Narrative 12/28/2017 Ordered by an unspecified provider. [facility] Provider CV CARDIAC SERVICES PROCE DURES [...] documented as of this encounter Care Teams Centrifugal Wax Molder Relationship Specialty Start Date End Date Elmer Wallace MD PCP - General 02/09/17 03/17/22 Lopez Pool MD PCP - General Family Medicine 03/18/22 Hema Castaneda MD Consulting Physician Cardiology 01/11/19 Colleen Bain MD Referring Physician Endocrinology Diabetes & Metabolism 04/07/19 Rosette Espinoza MD Referring Physician Cardiology 04/07/19 Jenni Hartley, RN Registered Nurse Cardiology 04/02/21 04/22/21 Meenu Jones NP Manufacturing Maintenance Mechanic Cardiology 04/02/21 04/22/21 Jacqueline Schaeffer RN Heart Failure Coordinator Cardiology 07/13/24 Jenni Hartley, RN Registered Nurse 07/13/24 08/01/24 Anat Hutchison 07/13/24 Zeynep Pérez RN [address] [address] [facility] Outpatient Sewing Pattern Layout Technician 02/03/25 03/02/25 documented as of this encounter
--- OUTSIDE RECORDS SUMMARY | 2025-05-09 10:53 | XMS_ITS | Encounter Summary ---
Author Organization [facility] Address [address] [place] [address] Phone Care Team Providers Care Quality Checker Name Role Phone Elmer Wallace MD Primary Care Provider Hema Castaneda MD Unavailable [phone] Colleen Bain MD Unavailable [phone] Rosette Espinoza MD Unavailable Jenni Hartley RN Unavailable Unavailable Meenu Jones NP Unavailable [phone] Lopez Pool MD Primary Care Provider [phone] Jacqueline Schaeffer RN Unavailable Unavailable Jenni Hartley RN Unavailable Unavailable Anat Hutchison Unavailable Unavailable Zeynep Pérez RN Unavailable [phone] Encounter Details Date Type Department Care Team [...] on file Legal Sex Female 3: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 Gender Identity Female 07/13/2018 9:28 AM CDT Sexual Orientation Not on file 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 Not on file [...] documented as of this encounter Care Teams Quality Checker Relationship Specialty Start Date End Date Elmer Wallace MD PCP - General 02/09/17 03/17/22 Lopez Pool MD PCP - General Family Medicine 03/18/22 Hema Castaneda MD Consulting Physician Cardiology 01/11/19 Colleen Bain MD Referring Physician Endocrinology Diabetes & Metabolism 04/07/19 Rosette Espinoza MD Referring Physician Cardiology 04/07/19 Jenni Hartley, RN Registered Nurse Cardiology 04/02/21 04/22/21 Meenu Jones NP Tool Chaser Cardiology 04/02/21 04/22/21 Jacqueline Schaeffer concession manager Failure Coordinator Cardiology 07/13/24 Jenni Hartley, RN Registered Nurse 07/13/24 08/01/24 Anat Hutchison 07/13/24 Zeynep Pérez, MIRI [address] [facility] [address] [place] [address] [facility] Outpatient Recreation Therapy Director 02/03/25 03/02/25 documented as of this encounter
--- OUTSIDE RECORDS SUMMARY | 2025-05-09 10:53 | XMS_ITS | Encounter Summary ---
Author Organization [facility] Address [address] [place] [address] Phone Care Team Providers Care Manager Wealth Management Name Role Phone Elmer Wallace MD Primary Care Provider Hema Castaneda MD Unavailable [phone] Colleen Bain MD Unavailable [phone] Rosette Espinoza MD Unavailable [phone] Jenni Hartley RN Unavailable Unavailable Meenu Jones NP Unavailable [phone] Lopez Pool MD Primary Care Provider [phone] Jacqueline Schaeffer RN Unavailable Unavailable Jenni Hartley RN Unavailable Unavailable Anat Hutchison Unavailable Unavailable Zeynep Préez RN Unavailable [phone] Encounter Details Date Type Department Care Team (Late st Contact Info) Description 01/20/2018 Orders Only [facility] Provider, MD Lexi [address] [place] [address] Social History Tobacco Use Types Packs/Day Years Used Date Smoking Tobacco: Former Comments Unknown Sex and Gender Information Value Date Recorded Sex Assigned at Not on file Legal Sex Female 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 AND 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 INSTRUCTOR Gender Identity Female 07/13/2018 9:28 AM [...] as of this encounter Care Teams Manager Wealth Management Relationship Specialty Start Date End Date Elmer Wallace MD PCP - General 02/09/17 03/17/22 Lopez Pool MD PCP - General Family Medicine 03/18/22 Hema Castaneda MD Consulting Physician Cardiology 01/11/19 Colleen Bain MD Referring Physician Endocrinology Diabetes & Metabolism 04/07/19 Rosette Espinoza MD Referring Physician Cardiology 04/07/19 Jenni Hartley, RN Registered Nurse Cardiology 04/02/21 04/22/21 Meenu Jones NP Delinquency Prevention Officer Cardiology 04/02/21 04/22/21 Jacqueline Schaeffer catering coordinator Failure Coordinator Cardiology 07/13/24 Jenni Hartley, RN Registered Nurse 07/13/24 08/01/24 Anat Hutchison 07/13/24 Zeynep Pérez, MIRI [address] [address] [facility] Outpatient Spray I Painter 02/03/25 03/02/25 documented as of this encounter
--- OUTSIDE RECORDS SUMMARY | 2025-05-09 10:53 | XMS_ITS | Encounter Summary ---
Author Organization [facility] [employer] of [facility] Address [address] [place] [address] Phone Care Team Providers Care Nurse Anesthesia Program Director Name Role Phone Elmer Wallace MD Primary Care Provider Hema Castaneda MD Unavailable [phone] Colleen Bain MD Unavailable [phone] Rosette Espinoza MD Unavailable [phone] Jenni Hartley RN Unavailable Unavailable Meenu Jones NP Unavailable [phone] Lopez Pool MD Primary Care Provider [phone] Jacqueline Schaeffer RN Unavailable Unavailable Jenni Hartley RN Unavailable Unavailable Anat Hutchison Unavailable Unavailable Zeynep Pérez RN Unavailable [phone] Encounter Details Date Type Department Care Team (Late st Contact Info) Description 11/29/2017 Orders Only [facility] Provider, MD Lexi [address] [place] [address] Social History Tobacco Use Types Packs/Day Years Used Date Smoking Tobacco: Former Comments Unknown Sex and Gender Information Value Date Recorded Sex Assigned at Not on file Legal Sex Female 3:00 AM RADIATOR REPAIRER Gender Identity Female 07/13/2018 9:28 AM [...] Narrative 11/29/2017 Ordered by an unspecified provider. [facility] Provider CV CARDIAC SERVICES PROCE DURES Final Result * CARDIOLOGY REPORT (11/29/2017) Anatomical Region Laterality Modality Other Narrative 11/29/2017 Ordered by an unspecified provider. [facility] Provider CV CARDIAC SERVICES PROCE DURES Final Result * CARDIOLOGY REPORT (11/29/2017) Anatomical Region Laterality Modality Other Narrative 11/29/2017 Ordered by an unspecified provider. Result [facility] Provider MD CV CARDIAC SERVICES PROCE DURES Final Result * CARDIOLOGY REPORT (11/29/2017) Anatomical Region Laterality Modality Other Narrative 11/29/2017 Ordered by an unspecified provider. Result [facility] Provider CV CARDIAC SERVICES PROCE DURES Final Result * CARDIOLOGY REPORT (11/29/2017) Anatomical Region Laterality Modality Other Narrative 11/29/2017 Ordered by an unspecified provider. Result [facility] Provider CV CARDIAC SERVICES PROCE DURES Final Result * CARDIOLOGY REPORT (11/29/2017) Anatomical Region Laterality Modality Other Narrative 11/29/2017 Ordered by an unspecified provider. Result [facility] Provider CV CARDIAC SERVICES PROCE DURES Final Result * CARDIOLOGY REPORT (11/29/2017) Anatomical Region Laterality Modality Other Narrative 11/29/2017 Ordered by an unspecified provider. Result [facility] Provider CV CARDIAC SERVICES PROCE DURES Final Result * CARDIOLOGY REPORT (11/29/2017) Anatomical Region Laterality Modality Other Narrative 11/29/2017 Ordered by an unspecified provider. Result [facility] Provider CV CARDIAC SERVICES PROCE DURES Final Result * CARDIOLOGY REPORT (11/29/2017) Anatomical Region Laterality Modality Other Narrative 11/29/2017 Ordered by an unspecified provider. Result [facility] Provider CV CARDIAC SERVICES PROCE DURES Final Result * CARDIOLOGY REPORT (11/29/2017) Anatomical Region Laterality Modality Other Narrative 11/29/2017 Ordered by an unspecified provider. Result [facility] Provider CV CARDIAC SERVICES PROCE DURES Final Result * CARDIOLOGY REPORT (11/29/2017) Anatomical Region Laterality Modality Other Narrative 11/29/2017 Ordered by an unspecified provider. Result [facility] Provider CV CARDIAC SERVICES PROCE DURES Final Result * CARDIOLOGY REPORT (11/29/2017) Anatomical Region Laterality Modality Other Narrative 11/29/2017 Ordered by an unspecified provider. us Historical [...] documented as of this encounter Care Teams Nurse Anesthesia Program Director Relationship Specialty Start Date End Date Elmer Wallace MD PCP - General 02/09/17 03/17/22 Lopez Pool MD PCP - General Family Medicine 03/18/22 Hema Castaneda MD Consulting Physician Cardiology 01/11/19 Colleen Bain MD Referring Physician Endocrinology Diabetes & Metabolism 04/07/19 Rosette Espinoza MD Referring Physician Cardiology 04/07/19 Jenni Hartley, RN Registered Nurse Cardiology 04/02/21 04/22/21 Meenu Jones NP Machine Stonecutter Cardiology 04/02/21 04/22/21 Jacqueline Schaeffer, school bus driver/teacher assistant Failure Coordinator Cardiology 07/13/24 Jenni Hartley, RN Registered Nurse 07/13/24 08/01/24 Anat Hutchison 07/13/24 Zeynep Pérez, MIRI [address] [facility] [address] [place] [address] [facility] Outpatient Program Consultant 02/03/25 03/02/25 documented as of this encounter
--- OUTSIDE RECORDS SUMMARY | 2025-05-09 10:53 | XMS_ITS | Encounter Summary ---
Author Organization [facility] Healthcare Address [address] [place] [address] Care Team Providers Care Computer Clerk Name Role Phone Hema Castaneda MD Unavailable [phone] Colleen Bain MD Unavailable Rosette Espinoza MD Unavailable [phone] Lopez Pool MD Primary Care Provider [phone] Jacqueline Schaeffer RN Unavailable Unavailable Jenni Hartley RN Unavailable Unavailable Anat Hutchison Unavailable Unavailable Zeynep Pérez RN Unavailable [phone] Encounter Details Date Type Department Care Team (Late st Contact Info) Description 03/18/2022 Documentation [facility] Case Management [address] [place] [address] Myla Goemz RN Social History Tobacco Use Types Packs/Day [...] week 03/14/2022 How often do you attend [facility] or protestant services? 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 Never 03/18/2022 6:56 AM Lorna Hilliard RN documented as of this encounter Plan of Treatment Not on file documented as of this encounter Visit Diagnoses Not on filedocumented in this encounter Care Teams Computer Clerk Relationship Specialty Start Date End Date Lopez Pool MD PCP - General Family Medicine 03/18/22 Hema Castaneda MD Consulting Physician Cardiology 01/11/19 Colleen Bain MD Referring Physician Endocrinology Diabetes & Metabolism 04/07/19 Rosette Espinoza MD Referring Physician Cardiology 04/07/19 Jacqueline Schaeffer RN Heart Failure Coordinator Cardiology 07/13/24 Jenni Hartley RN Registered Nurse 07/13/24 08/01/24 Anat Hutchison 07/13/24 Zeynep Pérez, RN [address] [facility] [address] [place] [address] SHOP Outpatient Glass Installer 02/03/25 03/02/25 documented as of this encounter
--- OUTSIDE RECORDS SUMMARY | 2025-05-09 10:53 | XMS_ITS | Encounter Summary ---
Author Organization [facility] Address [address] [place] [address] Phone Care Team Providers Care Angle Bender Name Role Phone Elmer Wallace MD Primary Care Provider Hema Castaneda MD Unavailable [phone] Colleen Bain MD Unavailable [phone] Rosette Espinoza MD Unavailable [phone] Jenni Hartley RN Unavailable Unavailable Meenu Jones NP Unavailable [phone] Lopez Pool MD Primary Care Provider [phone] Jacqueline Schaeffer RN Unavailable Unavailable Jenni Hartley RN Unavailable Unavailable Anat Hutchison Unavailable Unavailable Zeynep Pérez RN Unavailable [phone] Encounter Details Date Type Department Care Team (Late st Contact Info) Description 11/06/2017 Orders Only [facility] Provider, MD Lexi [address] [place] [address] Social History Tobacco Use Types Packs/Day Years Used Date Smoking Tobacco: Never Assessed Comments Unknown Sex and Gender Information Value Date Recorded Sex Assigned at Not on file Legal Sex Female 3:00 AM MANAGER INFUSION Gender Identity Female 07/13/2018 9:28 AM CDT [...] Narrative 11/06/2017 Ordered by an unspecified provider. [facility] Provider MD CV CARDIAC SERVICES PROCE DURES Final Result * CARDIOLOGY REPORT (11/06/2017) Anatomical Region Laterality Modality Other Narrative 11/06/2017 Ordered by an unspecified provider. [facility] Provider MD CV CARDIAC SERVICES PROCE DURES Final Result * CARDIOLOGY REPORT (11/06/2017) Anatomical Region Laterality Modality Other Narrative 11/06/2017 Ordered by an unspecified provider. Result [facility] Provider MD CV CARDIAC SERVICES PROCE DURES Final Result * CARDIOLOGY REPORT (11/06/2017) Anatomical Region Laterality Modality Other Narrative 11/06/2017 Ordered by an unspecified provider. [facility] Provider MD CV CARDIAC SERVICES PROCE DURES Final Result * CARDIOLOGY REPORT (11/06/2017) Anatomical Region Laterality Modality Other Narrative 11/06/2017 Ordered by an unspecified provider. [facility] Provider CV CARDIAC SERVICES PROCE DURES Final Result * CARDIOLOGY REPORT (11/06/2017) Anatomical Region Laterality Modality Other Narrative 11/06/2017 Ordered by an unspecified provider. [facility] Provider MD CV CARDIAC SERVICES PROCE DURES Final Result * CARDIOLOGY REPORT (11/06/2017) Anatomical Region Laterality Modality Other Narrative 11/06/2017 Ordered by an unspecified provider. us Historical Provider CV CARDIAC SERVICES PROCE SWETHA Final Result documented in this encounter Visit Diagnoses Not on filedocumented in this encounter Additional Health Concerns Infection Onset Date Last Indicated Resolved Time COVID: Suspected 03/13/2022 03/13/2022 03/13/2022 6:26 PM CDT documented as of this encounter Care Teams Angle Bender Relationship Specialty Start Date End Date Elmer Wallace MD PCP - General 02/09/17 03/17/22 Lopez Pool MD PCP - General Family Medicine 03/18/22 Hema Castaneda MD Consulting Physician Cardiology 01/11/19 Colleen Bain MD Referring Physician Endocrinology Diabetes & Metabolism 04/07/19 Rosette Espinoza MD Referring Physician Cardiology 04/07/19 Jenni Hartley, RN Registered Nurse Cardiology 04/02/21 04/22/21 Meenu Jones NP Dinkey Locomotive Engineer Cardiology 04/02/21 04/22/21 Jacqueline Schaeffer packing supervisor Failure Coordinator Cardiology 07/13/24 eJnni Hartley, RN Registered Nurse 07/13/24 08/01/24 Anat Hutchison 07/13/24 Zeynep Pérez RN [address] [address] [facility] Outpatient Medical Pathology Teacher 02/03/25 03/02/25 documented as of this encounter
--- OUTSIDE RECORDS SUMMARY | 2025-05-09 10:53 | XMS_ITS | Encounter Summary ---
Author Organization [facility] Address [address] [place] [address] Phone Care Team Providers Care Development Specialist Name Role Phone Hema Castaneda MD Unavailable [phone] Colleen Bain MD Unavailable [phone] Rosette Espinoza MD Unavailable [phone] Lopez Pool MD Primary Care Provider [phone] Jacqueline Schaeffer RN Unavailable Unavailable Anat Hutchison Unavailable Unavailable Zeynep Pérez RN Unavailable [phone] Encounter Details Date Type Department Care Team [...] How often do you attend chur or zoroastrian services? 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 Not on file [...] on filedocumented in this encounter Care Teams Development Specialist Relationship Specialty Start Date End Date Lopez Pool MD PCP - General Family Medicine 03/18/22 Hema Castaneda MD Consulting Physician Cardiology 01/11/19 Colleen Bain MD Referring Physician Endocrinology Diabetes & Metabolism 04/07/19 Rosette Espinoza MD Referring Physician Cardiology 04/07/19 Jacqueline Schaeffer RN Heart Failure Coordinator Cardiology 07/13/24 Anat Hutchison 07/13/24 Zeynep Pérez RN [address] [facility] [address] [place] [address] SH[facility] Outpatient Framing Consultant 02/03/25 03/02/25 documented as of this encounter
--- OUTSIDE RECORDS SUMMARY | 2025-05-09 10:53 | XMS_ITS | Encounter Summary ---
Author Organization [facility] Address [address] [place] [address] Phone Care Team Providers Care Transit Planning Manager Name Role Phone Hema Castaneda MD Unavailable [phone] Colleen Bain MD Unavailable Rosette Espinoza MD Unavailable [phone] Lopez Pool MD Primary Care Provider [phone] Jacqueline Schaeffer RN Unavailable Unavailable Anat Hutchison Unavailable Unavailable Encounter Details Date Type Department Care Team (Late st Contact Info) Description 04/03/2025 Results Follow-Up [facility] Cardiology [address] [facility] Advanced Medicine [address]th [place] [address] [place] [id number] Nicholas Jensen MD PhD [address] [facility] [address] [place] [address] Cardiology Document Scan Social History Tobacco Use Types Packs/Day Years Used Date Smoking Tobacco: Former Cigarettes 1 54 S tarted: 2 Passive Smoke Exposure: Past Smokeless Tobacco: Never Alcohol Use Standard Drinks/Week Comments No 0 (1 standard drink = 0.6 oz pur e alcohol) minimal C Utilities Answer Date Recorded In the past 12 months has [employer] electric, gas, oil, or water company threatened [...] often do you attend chur ch or evangelical services? Never 02/03/2025 Do you belong to any clubs o r organizations such as christian groups, unions, fraternal or athletic groups, or [...] in a prison (including now)? No 03/14/2022 Housing Stability Vital [...] in the [facility], were you homeless or living in a prison (including now)? No 02/03/2025 Personal Safety Answer Date Recorded Have you ever been in or are you currently in a harmful physical or emotional relationship or is someone making you feel afraid or unsafe? 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 Not on file Not on file Not on file documented as of this encounter Plan of Treatment Not on file documented as of this encounter Visit Diagnoses Not on filedocumented in this encounter Care Teams Transit Planning Manager Relationship Specialty Start Date End Date Lopez Pool MD PCP - General Family Medicine 03/18/22 Hema Castaneda MD Consulting Physician Cardiology 01/11/19 Colleen Bain MD Referring Physician Endocrinology Diabetes & Metabolism 04/07/19 Rosette Espinoza MD Referring Physician Cardiology 04/07/19 Jacqueline Schaeffer, bookkeeper receptionist Failure Coordinator Cardiology 07/13/24 Anat Hutchison 07/13/24 documented as of this encounter
[2025-05-09 11:31] LABS: Hematocrit 38.4 % (35.0-42.0); Hemoglobin 11.7 g/dL (11.7-13.8); Immature Granulocyte Percent A 0.3 % (0.0-0.0); Immature Platelet Fraction Pct 7.7 % (1.0-7.0); Lymphocytes Absolute Auto 1.01 K/mm3 (1.10-4.50); Mean Corpuscular HGB Conc 30.5 g/dL (32-36); Mean Corpuscular Hemoglobin 28.4 pg (27.0-31.0); Mean Corpuscular Volume 93.2 fL (78.0-102.0); Nucleated Red Blood Cells Absolute Auto 0.00 K/mm3 (0.00-0.00); Nucleated Red Blood Cells Perc 0.0 % (0-0.0); Platelet Count Result 192 K/mm3 (150-420); Red Blood Count 4.12 M/mm3 (4.20-5.40); White Blood Count 6.2 K/mm3 (4.8-10.8)
== END 2025-05-09 10:48 | disposition home or self-care (01) ==
LOC: CHSLAB 10:48
PROVIDERS: Visit Provider Family Medicine
DX: D64.9 Anemia, unspecified (principal)
CPT/HCPCS: 36415; 85025; 85055